=== PATIENT | female | born 1965 | race Caucasian/White ===

== ENCOUNTER 2023-05-01 12:30 | Outpatient (RCR) | payer MEDICARE, MEDICAID, SELFPAY ==
--- NOTE | 2023-04-01 13:52 | HP.PTEVAL_ITS ---
Patient's Visit Information Visit Information Visit Information: JUANA KAUR is a 57 year old F referred to Physical Therapy by Dr. Yann Hawley DO with a diagnosis of POSTLAMINECTOMY SYNDROME ,SPONDYLOSIS WITHOUT MYELOPATHY OR RADICULOPATHY. Date of Evaluation: 04/01/23 Physical Therapist: Galindo Spears, PT, Cert MDT, OCS Visit Plan Frequency: 2x /Week Duration: 4 Weeks Plan: PT INTERVETIONS AQUATIC THERAPY FOR LUMBAR ROM ,DLS ,BLE FLEXABILITY/STRENGTHENING AND POSTURAL EX'S Subjective Subjective: This 57 y/o female presents to physical therapy with low back pain. Patient had lumbar surgery 2019 laminectomy and 2019 had revision of lumbar with fusion surgery. Patient had cervical fusion as well. Patient seen Dr Hawley from family DR and wanted try PT before MRI. Patient had x-rays DDD . Dr Hawley wants to try 4weeks. Patient has thoracic and lumbar pain with paresthesia in feet from neuropathy per patient. Aggrieving factors extended walks ,or stand 15 min bending and lifting. Alleviating factors gabapentin for paresthesia in feet and rest. Patient tried pain management which did not help. Coughing/sneezing-. Bowel/bladder-. Pain affects sleeping. No abnormal night pain. Preauction : ALEGIC LATEX . Patient contributing factors contribute to condition. Patient is trying t loss weight but A 1C increased . Patient pain affects QOL and function . Patient goals to decrease pain. SOCIAL: SINGLE VOCATION: disability Pain Bilateral Back: Pain Intensity (Out of 10): 9 Pain Intensity Range: N/A Objective Objective: POSTURE: mild forward posture knee valgus ,pes planus GAIT: mild forward posture slow minna antalgic gait each side NEURO: c/o paresthesia/tingling in feet SYMMTRIES: align LUMBAR ROM: flexion mod loss ,extension severe loss ,side glides mod loss pain MMT: quads/hams 4-/5 ,hip flexion 3+/5 ,hip abduction 3+/5 ,ankle 4/5 Special Tests L/S Slump test left side: Positive L/S Slump test right side: Positive L/S Left Straight Leg Raise: Positive L/S Right Straight Leg Raise: Positive Lumbar Standing: Flexion - Symptoms During Testing: Increases Lumbar Standing: Flexion - Symptoms After Testing: No effect Lumbar Standing: Extension - Mechanical Response: No effect Lumbar Standing: Extension - Symptoms During Testing: Increases Lumbar Standing: Extension - Symptoms After Testing: No effect Lumbar Standing: Right Side Glides - Mechanical Response: No effect Lumbar Standing: Right Side [place] - Symptoms During Testing: No effect Lumbar Standing: Right Side [place] - Symptoms After Testing: No effect Lumbar Standing: Left Side [place] - Mechanical Response: No effect Lumbar Standing: Left Side [place] - Symptoms During Testing: No effect Lumbar Standing: Left Side [place] - Symptoms After Testing: No effect Balance/Special Test Scores Oswestry Low Back Score: 35 Goals Goal 1:: I with Aquatic therapy program Goal Time Frame: 4-6 Weeks Goal 2:: Patient to improve lumbar ROM for function of recovery to put on shoes Goal Time Frame: 4-6 Weeks Goal 3:: Patient to demonstrate 40% improvement with less pain and improved function. Goal Time Frame: 4-6 Weeks Goal 4:: Patient to improve back oswestry by 5 points to improve function/QOL Goal Time Frame: 4-6 Weeks Goal 5:: Patient improve strength by 4/5 to improve gait with less antalgic gait. Goal Time Frame: 4-6 Weeks Rehabilitation Potential Physical Therapy Diagnosis: This patient has mutiple comorbities to influences condition along with increase pain lumbar ,poor lumbar with pain ,weakness in legs ,pain with positioning and motion testing thus will benefit from skilled PT Rehabilitation Potential: Fair Anticipated Interventions Patient/Client Instruction: Educate patient on: Condition and Plan of Care For the Purpose of:: To decrease pain, To increase ROM, To improve muscle performance and motor function, To improve ability to perform ADL's, To increase tolerance to activity/condition/position, To improve ability of physical actions for home/community/work/leisure, To improve health of tissue, To decrease soft tissue restriction, To increase flexibility/ROM, To improve endurance and To improve balance Therapeutic Exercise to Include: Strength training, Endurance training, Body mechanics, Postural training, Flexibilty training, In an aquatic setting and Dynamic Lumbar Stabilization For the Purpose of:: To decrease pain, To increase ROM, To improve muscle performance and motor function, To improve ability to perform ADL's, To increase tolerance to activity/condition/position, To improve ability of physical actions for home/community/work/leisure, To improve gait and locomotor functions, To decrease soft tissue restriction and To increase flexibility/ROM Text: Thank you for the opportunity to evaluate your patient. For Medicare and Medicare HMO plans, please review the plan of care and approve it. It will need to be FAXED BACK to us at [phone] for Medicare purposes. For Medicare only, by signing this I certify the plan of care. Please let me know if there are questions or concerns regarding this plan of care. Physician Signature: Date:
--- NOTE | 2023-05-01 12:45 | HP.PTDCSUM ---
Discharge Summary D/C summary: It has been my pleasure to treat JUANA KAUR referred by Dr. Yann Hawley DO, with the diagnosis of POSTLAMINECTOMY SYNDROME ,SPONDYLOSIS WITHOUT MYELOPATHY OR RADICULOPATHY for a total of 8 visit(s). Discharge Date: 05/01/23 Please see the following information for a summary of their discharge status. Subjective Subjective: Pain is about same .RTD to try for MRI Pain Bilateral Back: Pain Intensity (Out of 10): 8 Overall Improvement % Improvement: 10 Objective Objective/Function: Objective: POSTURE: mild forward posture knee valgus ,pes planus GAIT: mild forward posture slow minna antalgic gait each side NEURO: c/o paresthesia/tingling in feet SYMMTRIES: align LUMBAR ROM: flexion mod loss ,extension severe loss ,side glides mod loss pain MMT: quads/hams 4-/5 ,hip flexion 4-/5 ,hip abduction 3+/5 ,ankle 4/5 Goals Goal 1:: I with Aquatic therapy program Goal Progress: Goal Met Goal 2:: Patient to improve lumbar ROM for function of recovery to put on shoes Goal Progress: Progressing Goal 3:: Patient to demonstrate 40% improvement with less pain and improved function. Goal Progress: Progressing Goal 4:: Patient to improve back oswestry by 5 points to improve function/QOL Goal Progress: Progressing Goal 5:: Patient improve strength by 4/5 to improve gait with less antalgic gait. Goal Progress: Progressing Plan Plan: RTD FOR POSSIBLE D/C Information d/c sentence: If there are questions or concerns regarding this patient's physical therapy, please feel free to call me at [phone]. Thank you for the referral of this patient. Sincerely, Galindo Spears, PT, Cert MDT, OCS Balance/Gait/Functional tests Balance/Special Test Scores Oswestry Low Back Score: 35
== END 2023-05-01 15:21 | disposition home or self-care (01) ==
LOC: PT 12:30
PROVIDERS: Visit Provider Orthopaedic Surgery
DX: M96.1 Postlaminectomy syndrome, not elsewhere classified (principal); M47.814 Spondylosis without myelopathy or radiculopathy, thoracic region
CPT/HCPCS: 97113; 97162; 97530

== ENCOUNTER → 2023-06-25 | Outpatient (CLI) | payer MEDICARE, MEDICAID, SELFPAY ==
--- NOTE | 2023-06-25 15:57 | MRI_ITS ---
INDICATION: pain, EXAMINATION: MRI - MR Spine Thoracic W/O Contrast TECHNIQUE: Multiplanar and multisequence MR images of the thoracic spine. IV Contrast Dosage and Agent: None. COMPARISON: None. FINDINGS: VERTEBRAE: No fracture. No acute compression deformity. Mild chronic anterior height loss in the midthoracic spine with slightly exaggerated kyphosis. No listhesis. Mild diffuse chronic endplate degenerative change.. No aggressive osseous lesion. Small intraosseous hemangioma at T1. Intraosseous hemangioma versus acute degenerative change at right inferior T2 endplate.. DISCS: Lower cervical posterior disc protrusions with mild spinal canal narrowing. T1-T2: Small broad-based posterior disc protrusion with mild spinal canal stenosis without significant neural foraminal narrowing. T2-T3: Small posterior central disc protrusion with mild spinal canal stenosis without significant neural foraminal narrowing. T4-T5: Slight broad-based posterior disc protrusion with mild spinal canal stenosis without significant neural foraminal narrowing. T6-T7: Small left central posterior disc protrusion with mild spinal canal stenosis, slightly effacing anterior cord without compression. No significant neural foraminal narrowing. T7-T8: Small right central to subarticular posterior disc protrusion with mild spinal canal stenosis, effacing the right anterior cord without compression. T8-T9: Small posterior central disc protrusion with minimal spinal canal narrowing, slightly effacing the anterior left cord without compression. No significant neural foraminal stenosis. CORD: Unremarkable in signal and morphology. No expansile mass. No abnormal epidural fluid collection. SOFT TISSUES: Unremarkable. MRI/Spine Thoracic (Routine) IMPRESSION: Small multilevel posterior disc protrusions slightly effacing the left anterior cord at T6-T7, right anterior cord at T7-T8, and left anterior cord at T8-T9 without cord compression Mild diffuse chronic endplate degenerative changes. . No acute osseous finding. Electronically Signed: Grayson Degroot MD at 5:26 EDT ,
--- NOTE | 2023-06-25 15:57 | MRI_ITS ---
INDICATION: pain, HX PREV SURGERY X 2 EXAMINATION: MRI - MR Spine Lumbar W/O Contrast TECHNIQUE: Multiplanar and multisequence MR images of the lumbar spine. IV Contrast Dosage and Agent: None. COMPARISON: Lumbar spine radiograph March 20, 2023. FINDINGS: VERTEBRAE: Normal bone marrow signal. No fracture or compression deformity. No aggressive osseous lesion. Preserved lumbar lordosis with mild degenerative grade 1 retrolisthesis L2 on L3. . Prior L4-L5 laminectomy with bilateral transpedicular Internal fixation of hardware failure CORD: Conus medullaris at L1. Imaged portion of the cord is normal signal. Cauda equina layer dependently.. L1/L2: Normal disc height and morphology. Normal spinal canal, lateral recesses and neuroforamina. L2/L3: Disc height loss with small broad-based posterior disc protrusion and mild ligamentum flavum hypertrophy causing mild spinal canal stenosis, moderate bilateral recess narrowing with disc osteophyte in the L3 nerve rootlets, and mild bilateral neural foraminal stenosis.. L3/L4: Small broad-based posterior disc bulge with moderate bilateral ligamentum flavum hypertrophy and facet arthropathy together causing mild spinal canal stenosis, mild lateral recess narrowing, and mild bilateral foraminal stenosis.. L4/L5: No gross disc herniation. Normal spinal canal, lateral recesses and neuroforamina. L5/S1: Normal disc height and morphology. Normal spinal canal, lateral recesses and neuroforamina. SOFT TISSUES: Unremarkable. MRI/Spine Lumbar (Routine) IMPRESSION: Prior laminectomy and posterior transpedicular fixation L4-L5. Small posterior disc herniation L2-3 and L3-4 with ligamentum flavum and facet hypertrophy causing mild spinal canal stenosis at both levels and moderate bilateral lateral recess narrowing at L2-3 with disc likely abutting L3 nerve rootlets. Mild multilevel neural foraminal stenosis. Electronically Signed: Grayson Degroot MD at 6:32 EDT ,
== END | disposition home or self-care (01) ==
LOC: MRI 15:53
PROVIDERS: Referring Provider Orthopaedic Surgery; Visit Provider Orthopaedic Surgery
DX: M51.36 Other intervertebral disc degeneration, lumbar region (principal); Z98.1 Arthrodesis status
CPT/HCPCS: 72146; 72148

== ENCOUNTER 2023-07-28 19:50 | Emergency (ER) | payer MEDICARE, MEDICAID, SELFPAY ==
[2023-07-28 19:50] VITALS: BP 150/97; PULSE 77; RESP 15; TEMP 36.8; O2SAT 97; BMI 36.7
[2023-07-28 19:54] VITALS: BP 150/97; PULSE 77; RESP 15; TEMP 36.8; O2SAT 97
--- NOTE | 2023-07-28 20:56 | EX.ED.GENINJ ---
HPI <MAGED Molina - Last Filed: 07/28/23 21:14> History of Present Illness Chief Complaint: Bite Narrative Narrative: Patient's cat bit her on the right palm 2 days ago because it did not like being bathed in the bathtub. She has 2 small puncture wounds and yesterday became red. No fever or chills. No difficulty moving the extremity, no weakness or paresthesias. She is a type II diabetic on oral and insulin regimens. [facility] <MAGED Molina - Last Filed: 07/28/23 21:14> [facility] Medical History (Updated 07/28/23 @ 20:32 by MAGED Molina) Arthritis Degenerative disk disease Diabetes Fibromyalgia Hypercholesteremia Sleep apnea Home Medications albuterol sulfate 90 mcg/actuation aerosol inhaler inhalation 03/20/23 [History Last Taken Unknown] aspirin 81 mg tablet,delayed release (Adult Low Dose Aspirin) 81 mg PO DAILY 03/20/23 [History Last Taken Unknown] atorvastatin 40 mg tablet mg PO 03/20/23 [History Last Taken Unknown] gabapentin 600 mg tablet mg PO 03/20/23 [History Last Taken Unknown] lisinopril 20 mg tablet mg PO 03/20/23 [History Last Taken Unknown] metoprolol tartrate 25 mg tablet mg PO 03/20/23 [History Last Taken Unknown] multivitamin (Daily Multi-Vitamin tablet) 1 tab PO DAILY 03/20/23 [History Last Taken Unknown] pantoprazole 40 mg tablet,delayed release mg PO 03/20/23 [History Last Taken Unknown] semaglutide 0.25 mg or 0.5 mg (2 mg/3 mL) subcutaneous pen injector (Ozempic) mg subcut 03/20/23 [History Last Taken Unknown] dapagliflozin propanediol 10 mg tablet (Farxiga) mg PO 06/03/23 [History Last Taken Unknown] insulin glargine 100 unit/mL (3 mL) subcutaneous pen (Lantus Solostar U-100 Insulin) 50 unit subcut QHS 07/15/23 [History Last Taken Unknown] insulin lispro 100 unit/mL subcutaneous pen 30 unit subcut QAC 07/15/23 [History Last Taken Unknown] amoxicillin 875 mg-potassium clavulanate 125 mg tablet 1 tab PO BID 7 days #14 tabs 07/28/23 [Rx Last Taken Unknown] Allergy/AdvReac Type Severity Reaction Status Date / Time Latex, Natural Rubber Allergy Intermediate Rash Verified 07/28/23 19:57 lavender (Lavandula Allergy Mild Hives Verified 07/28/23 19:57 angustifolia) metformin Allergy Mild rash Verified 07/28/23 19:57 Surgical History History of back surgery History of fusion of cervical spine History of lumbar fusion Social History Smoking Status: Never smoker alcohol intake: never substance use type: does not use ROS <MAGED Molina - Last Filed: 07/28/23 21:14> ROS ED ROS Narrative Constitutional: Negative for fever, chills, malaise. GI: Negative for nausea, vomiting. Neuro: Negative for motor/sensory dysfunction. Skin: Positive for wound. EXAM <MAGED Molina - Last Filed: 07/28/23 21:14> Physical Exam Narrative Exam Narrative: CONST: Patient sitting in no acute distress. EYES: Normal inspection. NECK: Normal inspection. RESP: No respiratory distress, CTAB. CVS: Regular rate and rhythm, no murmur, no gallop. SKIN: 2 puncture wounds with scab right palm on hypothenar eminence with surrounding cellulitis. The cellulitis does not go past the wrist joint. The more medial puncture wound has slight yellow pus visible under the skin. No crepitus or lymphangitis. Full ROM of wrist and hand, normal motor and sensory function median radial ulnar distributions, 2+ radial pulse and brisk cap refill. NEURO: Oriented x4. PSYCH: Normal affect. Const Vital Signs: 07/28/23 19:50 07/28/23 19:54 Temperature 98.2 F 98.2 F Temperature Source Temporal Oral Pulse Rate 77 77 Respiratory Rate 15 15 Blood Pressure 150/97 H 150/97 H Blood Pressure Mean 114 114 Pulse Ox 97 97 Oxygen Delivery Method Room Air Room Air <Dr. Musa Szymanski MD - Last Filed: 07/28/23 21:47> Physical Exam Const Vital Signs: 07/28/23 19:50 07/28/23 19:54 Temperature 98.2 F 98.2 F Temperature Source Temporal Oral Pulse Rate 77 77 Respiratory Rate 15 15 Blood Pressure 150/97 H 150/97 H Blood Pressure Mean 114 114 Pulse Ox 97 97 Oxygen Delivery Method Room Air Room Air PROC <Dr. Musa Szymanski MD - Last Filed: 07/28/23 21:47> Procedures Other Procedures Procedure(s): The 2 cat bite sites were anesthetized with 1% lidocaine by local filtration. Using a 10 blade 1 cm laceration was made over each bite site. Blunt dissection was undertaken with purulent material noted. Approximately 1/2 to 1 cc of. Material each cavity. MDM <MAGED Molina - Last Filed: 07/28/23 21:14> [facility] Narrative Medical decision making narrative: History gathered from: Patient and daughter Patient has infected cat bite on her right palm. I remove the scabs with an 18-gauge needle and there is purulent material. It was anesthetized with 1% lidocaine and opened with a 10 blade approximately 1 cm laceration over each puncture site. Purulent material was expressed, larger wound was irrigated and packed. She was given Augmentin and tetanus and discharged with instructions to be rechecked within 2 days or return if worsening symptoms. I have personally performed a face to face assessment of the patient and have reviewed the PANCHO Note. I performed a substantive portion of the visit including all aspects of the following. My tran findings include: History is remarkable for cat bite thenar eminence right hand. There are 2 puncture wounds noted. There is tenderness. The physician emergency veterinary assistant did express purulent material. Patient denies history of rheumatic fever, mitral valve prolapse, valvular heart disease, SBE and she is not immune suppressed. Patient denies allergy to penicillin. Patient is diabetic. The cat is a family pet and shots are up-to-date. Exam is remarkable for tenderness and infection due to cat bite thenar eminence. There is no lymphangitis. There is no epitrochlear lymphadenopathy. There is no surrounding cellulitis. Medical Decision Making the areas were anesthetized. Using a 10 blade approximately 1 cm laceration was made over each puncture site. There was small cavity of purulent material that was found. Wound was irrigated. Patient will receive first dose of Augmentin in the emergency department. She will be discharged to home with prescription. She was instructed to contact her doctor for wound check in 2 days. She was told if she has a red streak going towards her elbow fever greater than 100 or shaking chills she should come back to the emergency department. Other additions or changes: [None] <Dr. Musa Szymanski MD - Last Filed: 07/28/23 21:47> [facility] Narrative Medical decision making narrative: I have personally performed a face to face assessment of the patient and have reviewed the PANCHO Note. I performed a substantive portion of the visit including all aspects of the following. My tran findings include: History is remarkable for cat bite thenar eminence right hand. There are 2 puncture wounds noted. There is tenderness. The physician emergency veterinary assistant did express purulent material. Patient denies history of rheumatic fever, mitral valve prolapse, valvular heart disease, SBE and she is not immune suppressed. Patient denies allergy to penicillin. Patient is diabetic. The cat is a family pet and shots are up-to-date. Exam is remarkable for tenderness and infection due to cat bite thenar eminence. There is no lymphangitis. There is no epitrochlear lymphadenopathy. There is no surrounding cellulitis. Medical Decision Making the areas were anesthetized. Using a 10 blade approximately 1 cm laceration was made over each puncture site. There was small cavity of purulent material that was found. Wound was irrigated. Patient will receive first dose of Augmentin in the emergency department. She will be discharged to home with prescription. She was instructed to contact her doctor for wound check in 2 days. She was told if she has a red streak going towards her elbow fever greater than 100 or shaking chills she should come back to the emergency department. Other additions or changes: [None] Discharge Plan Triage Chief Complaint: Bite ED Midlevel Provider: Matilda Nassar ED Provider: Musa Szymanski Dx/Rx/DC Orders Clinical Impression: Cat bite of right hand with infection, Abscess of hand, right Instructions: Animal Bites and Scratches, ED Abscess Incision And Drainage Prescriptions: New amoxicillin-pot clavulanate 875-125 mg tablet 1 tab PO BID 7 Days Qty: 14 0RF No Action Ozempic 0.25 mg or 0.5 mg (2 mg/3 mL) pen injector subcut metoprolol tartrate 25 mg tablet PO pantoprazole 40 mg tablet,delayed release (DR/EC) PO gabapentin 600 mg tablet PO lisinopril 20 mg tablet PO Patient Comments: TAKE 1 TABLET BY MOUTH ONCE DAILY atorvastatin 40 mg tablet PO Patient Comments: TAKE 1 TABLET BY MOUTH ONCE DAILY albuterol sulfate 90 mcg/actuation HFA aerosol inhaler inhalation Patient Comments: INHALE 2 PUFFS BY MOUTH EVERY 4 HOURS NEEDED FOR WHEEZING AND FOR SHORTNESS OF BREATH multivitamin [Daily Multi-Vitamin] Tablet 1 tab PO DAILY aspirin [Adult Low Dose Aspirin] 81 mg tablet,delayed release (DR/EC) 81 mg PO DAILY insulin lispro 100 unit/mL insulin pen 30 unit subcut QAC insulin glargine [Lantus Solostar U-100 Insulin] 100 unit/mL (3 mL) insulin pen 50 unit subcut QHS Patient Comments: INJECT 60 UNITS SUBCUTANEOUSLY ONCE DAILY AT BEDTIME Farxiga 10 mg tablet PO Primary Care Provider: Arianna Alonzo NP Referrals: Arianna Alonzo DIRECTOR DIGITAL STRATEGY, DIRECTOR DIGITAL STRATEGY-C [Primary Care Provider] - Activity Restrictions/Additional Instructions: Watch the area very carefully and if the redness spreads, worsens, you have a fever or increased pain or swelling come back to the ER Disposition Disposition: Home, Self Care
[2023-07-28] MEDS: Amox/Clavulanate 875 MG Tablet PO (22:08)
[2023-07-28] MEDS: Ondansetron ODT 4 MG Tablet PO (22:08)
[2023-07-28] MEDS: Diphth,Pertuss(Acell),Tet Vac 0.5 ML Vial IM (22:08)
[2023-07-28] MEDS: HYDROcodone Bitartrate/Apap 5/325 Tablet PO (22:09)
[2023-07-28 22:17] VITALS: BP 145/67; PULSE 73; RESP 16; O2SAT 98
== END 2023-07-28 22:18 | disposition home or self-care (01) ==
PROVIDERS: Emergency Provider Emergency Medicine; PCP Nurse Practitioner Family; Visit Provider Emergency Medicine
DX: L02.511 Cutaneous abscess of right hand (principal); E11.9 Type 2 diabetes mellitus without complications; S61.451A Open bite of right hand, initial encounter; E78.00 Pure hypercholesterolemia, unspecified; Z79.01 Long term (current) use of anticoagulants; Z79.84 Long term (current) use of oral hypoglycemic drugs; Z23 Encounter for immunization; W55.01XA Bitten by cat, initial encounter
CPT/HCPCS: 10061; 10060; 90471; 90715; 99284

== ENCOUNTER 2025-04-07 03:19 | Emergency (ER) | payer MEDICARE, MEDICAID, SELFPAY ==
[2025-04-07 03:22] VITALS: BP 207/94; PULSE 85; RESP 18; TEMP 37.1; O2SAT 96; BMI 37.3
[2025-04-07 03:25] VITALS: BP 202/79; PULSE 84; RESP 18; TEMP 37.1; O2SAT 100
[2025-04-07 03:41] LABS: Hematocrit 39.1 % (37-47); Hemoglobin 13.0 g/dL (12.0-15.0); Immature Granulocytes Count 0.060 X10^3/uL (0.0-0.0); Mean Corp Hgb Conc 33.2 g/dL (32-36); Mean Corpuscular Volume 85.7 fL (81-99); Mean Platelet Vol. 10.1 fl (6.2-12.0); NRBC Flagged by Analyzer 0 % (0-5); Platelet Count 310 K/mm3 (150-450); RBC Distribution Width CV 12.8 % (11.6-14.6); RBC Distribution Width SD 39.8 fl (35.1-43.9); Red Blood Count 4.56 M/mm3 (4.2-5.4); White Blood Count 13.3 K/mm3 (4.4-11.0)
[2025-04-07] MEDS: 0.9% Normal Saline (1000mL) 1,000 ML 999 ML IV (03:42)
--- OUTSIDE RECORDS SUMMARY | 2025-04-07 03:53 | XMS RPT_ITS | CCD ---
Author Organization [facility] Care Team Providers Care Manager Delivery Name Role Phone Scott Espinosa Unavailable Unavailable Scott Espinosa Unavailable Unavailable Unavailable Unavailable Unavailable Scott Espinosa Unavailable [phone] Scott Espinosa Unavailable [phone] SCOTT ESPINOSA Unavailable Unavailable SCOTT ESPINOSA Unavailable Unavailable SCHOETTSPENCER BASHIR T Unavailable Unavailable SCHOETTKRYSTEN SPENCER T Unavailable Unavailable UNKNOWN, PROVIDER Unavailable Unavailable SCOTT ESPINOSA Unavailable Unavailable Meka Price Unavailable Marianela Fowler Unavailable Kristie Vera Unavailable Unavailable Davey Arreola Unavailable Unavailable RevDavey weiss Unavailable Unavailable Viau, Linh R Unavailable Unavailable Viau, Linh R Unavailable Unavailable Maribeth, Jasper J Unavailable Unavailable Maribeth, Jasper J Unavailable Unavailable Maribeth, Jasper J Unavailable Unavailable Maribeth, Jasper J Unavailable Unavailable Fanello Kary K Unavailable Unavailable Fanello Kary K Unavailable Unavailable Reece, Naomi A Unavailable Unavailable Reece, Naomi A Unavailable Unavailable Scott Espinosa Unavailable Unavailable Scott Espinosa Unavailable Unavailable Scott Espinosa Unavailable Unavailable Scott Espinosa Unavailable Unavailable Fowler, Marianela Unavailable Unavailable Fowler, Marianela Unavailable Unavailable Viau, Linh R Unavailable Unavailable Viau, Linh R Unavailable Unavailable Scott Espinosa Unavailable Unavailable Scott Espinosa Unavailable Unavailable DimitrisDewayne fatimaa E Unavailable Unavailable DimitrisDewayne fatimaa E Unavailable Unavailable Fanello, Kary K Unavailable Unavailable Fanello, Kary K Unavailable Unavailable Reece, Naomi A Unavailable Unavailable Reece, Naomi A Unavailable Unavailable Viau, Linh R Unavailable Unavailable Viau, Linh R Unavailable Unavailable Viau, Linh R Unavailable Unavailable Viau, Linh R Unavailable Unavailable Macie, Ziad Unavailable Unavailable Macie, Ziad Unavailable Unavailable Natalie Payne Unavailable Unavailable Natalie Payne Unavailable Unavailable Maribeth, Jasper J Unavailable Unavailable Maribeth, Jasper J Unavailable Unavailable Maribeth, Jasper J Unavailable Unavailable Maribeth, Jasper J Unavailable Unavailable Viau, Linh R Unavailable Unavailable Viau, Linh R Unavailable Unavailable Dimitris, Nancy E Unavailable Unavailable Dimitris, Nancy E Unavailable Unavailable Viau, Linh R Unavailable Unavailable Viau, Linh R Unavailable Unavailable Dimitris, Nancy E Unavailable Unavailable Dimitris, Nancy E Unavailable Unavailable Viau, Linh R Unavailable Unavailable Viau, Linh R Unavailable Unavailable Viau, Linh R Unavailable Unavailable Viau, Linh R Unavailable Unavailable Viau, Linh R Unavailable Unavailable Viau, Linh R Unavailable Unavailable Anil Marianela Alma Primary Care Provider [phone] Kristie Vera M Unavailable Unavailable Unavailable Primary Care Provider UnavailScott Higuera Primary Care Provider Marianela Fowler Primary Care Provider [phone] Chuy Kristie M Unavailable Unavailable Chuy, Kristie M Unavailable Unavailable Guerrero, Svetlana Unavailable Unavailable Jin, Patricia Unavailable Unavailable [place], Patricia Unavailable Unavailable MIGEL BROWNING Admitting Unavailable MIGEL BROWNING Referring Unavailable FOWLER, MARIANELA ALMA Primary Care Unavailable MIGEL BROWNING Admitting Unavailable MIGEL BROWNING Referring Unavailable FOWLER, MARIANELA ALMA Primary Care Unavailable Klironomos, Dionysios Unavailable FOWLER, MARIANELA ALMA Attending Unavailable FOWLER, MARIANELA ALMA Referring Unavailable FOWLER, MARIANELA ALMA Primary Care Unavailable FOWLER, MARIANELA ALMA Primary Care Unavailable BANDAR ROCK Attending Unavailable FOWLER, MARIANELA ALMA Primary Care Unavailable KLIRONOMOS, DIONYSIOS Referring Unavailabl e Fowler, Marianela Alma Primary Care Provider [phone] Klironomos, Dionysios Unavailable Chuy, Kristie M Unavailable Unavailable Chuy, Kristie M Unavailable Unavailable Fowler CORPORATE CONSULTANT, Marianela Alma Primary Care Provider Aileen ELIZABETH, Yarelios Unavailable MIGEL BROWNING Attending Unavailable FOWLER, MARIANELA ALMA Primary Care Unavailable GARIMA COMBS Attending Unavailable FOWLER, MARIANELA ALMA Primary Care Unavailable MIGEL BROWNING Attending Unavailable FOWLER, MARIANELA ALMA Primary Care Unavailable FOWLER, MARIANELA ALMA Attending Unavailable FOWLER, MARIANELA ALMA Primary Care Unavailable IMGEL BROWNING Attending Unavailable FOWLER, MARIANELA ALMA Primary Care Unavailable BABAK CANO Attending Unavailab le FOWLER, MARIANELA ALMA Primary Care Unavailable FOWLER, MARIANELA ALMA Admitting Unavailable FRANCISCO STOKES Attending Unavaila ble FOWLER, MARIANELA ALMA Referring Unavailable FOWLER, MARIANELA ALMA Primary Care Unavailable FOWLER, MARIANELA ALMA Attending Unavailable FOWLER, MARIANELA ALMA Primary Care Unavailable MIGEL BROWNING Attending Unavailable FOWLER, MARIANELA ALMA Primary Care Unavailable MEKA CHURCHILL Referring Unavailabl e FOWLER, AMRIANELA ALMA Primary Care Unavailable MEKA CHURCHILL Admitting Unavailabl e ERENDIRA KINNEY Attending Unavailable FARHAD PALMER Attending Unavaila ble FOWLER, MARIANELA ALMA Primary Care Unavailable NAOMI REECE Attending Unavailable FOWLER, MARIANELA ALMA Primary Care Unavailable ROSITA BONILLA Attending Unavailable FOWLER, MARIANELA ALMA Primary Care Unavailable MIGEL BROWNING Attending Unavailable FOWLER, MARIANELA ALMA Primary Care Unavailable JR MAHMOOD Admitting Unavailab JR Wilson Referring Unavailab le FOWLER, MARIANELA ALMA Primary Care Unavailable ALEC TOPETE Attending Unavailable FOWLER, MARIANELA ALMA Attending Unavailable FOWLER, MARIANELA ALMA Primary Care Unavailable FOWLER, MARIANELA ALMA Attending Unavailable FOWLER, MARIANELA ALMA Primary Care Unavailable Aileen ELIZABETH, Yarelios Unavailable Fowler CORPORATE CONSULTANT, Marianela Alma Primary Care Provider LATVIAN, BRIAN WHITT Attending Unavailable LATVIAN, BRIAN WHITT Admitting Unavailable FOWLER, MARIANELA ALMA Primary Care Unavailable FOWLER, MARIANELA ALMA Primary Care Unavailable MIGEL BROWNING Referring Unavailable MIGEL BROWNING Attending Unavailable FOWLER, MARIANELA ALMA Primary Care Unavailable NAOMI REECE Admitting Unavailable FOWLER, MARIANELA ALMA Primary Care Unavailable BABAK CANO Admitting Unavailab le FOWLER, MARIANELA ALMA Primary Care Unavailable NAOMI REECE Admitting Unavailable FOWLER, MARIANELA ALMA Primary Care Unavailable GAYLE MARAVILLA Attending Unavailabl e GAYLE MARAVILLA Admitting Unavailabl e Unavailable Primary Care Provider Unavailabl e Queden LOCOMOTIVE ENGINEER.CORPORATE CONSULTANT, Arianna A Unavailable Queden LOCOMOTIVE ENGINEER.CORPORATE CONSULTANT, Arianna A Primary Care Provider Queden LOCOMOTIVE ENGINEER.CORPORATE CONSULTANT, Arianna A Unavailable [phone] Queden LOCOMOTIVE ENGINEER.CORPORATE CONSULTANT, Arianna A Primary Care Provider Queden LOCOMOTIVE ENGINEER.CORPORATE CONSULTANT, Arianna A Unavailable Queden LOCOMOTIVE ENGINEER.CORPORATE CONSULTANT, Arianna A Primary Care Provider Queden LOCOMOTIVE ENGINEER.CORPORATE CONSULTANT, Arianna A Unavailable [phone] Queden LOCOMOTIVE ENGINEER.[facility], Arianna A Primary Care Provider Scott Espinosa CNP Unavailable Scott Espinosa CNP Primary Care Provider [phone] Meka Price DO [facility] Provi gutierrez Anil WHALEY Marianela Alma Primary Care Provider [phone] Kristie Vera RN Unavailable Unavailable Chuy LUNA, Kristie Norwood Unavailable Unavailable Svetlana Guerrero Unavailable Unavailable [place] RD, Patricia Unavailable Unavailab le Jin RD, Patricia Unavailable Unavailab carline Gallagher MD, Jose Unavailable Anil WHALEY, Marianela Alma Primary Care Provider [phone] Queden LOCOMOTIVE ENGINEER.CORPORATE CONSULTANT, Arianna A Primary Care Provider Tracey Blakely RN Unavailable Unavailable DAMARIS SPICER Referring Unavaila ble QUEDEN, ARIANNA A Primary Care Unavailable CASH HURT Admitting Unavailabl LOUIE Browne JR Attending Unavaila ble LAVELLE MERCADO Unavailable Shelby Leslie Attending Unavailable Queden QUALITY TECHNICIAN, Arianna Primary Care Unavailable Queden QUALITY TECHNICIAN, Arianna Referring Unavailable AnujShelby Attending Unavailable Queden QUALITY TECHNICIAN, Arianna Referring Unavailable Queden QUALITY TECHNICIAN, Arianna Primary Care Unavailable Chandan, Yann Attending Unavailable Hawley, Yann Attending Unavailable Hawley, Yann Attending Unavailable Hawley, Yann Referring Unavailable NEISLEN, GAYLE Primary Care Unavailable Queden QUALITY TECHNICIAN, Arianna Primary Care Unavailable Musa Szymanski Attending Unavailable Shelby Leslie Attending Unavailable NEISLEN, GAYLE Primary Care Unavailable NEISLEN, GAYLE Referring Unavailable Aileen ELIZABETH, Jose Unavailable [phone] Marianela Fowler CNP Primary Care Provider [phone] QUEDEN, ARIANNA A Primary Care Unavailable DUKE MIKE Attending Unava ilable QUEDEN, ARIANNA A Primary Care Unavailable QUEDEN, ARIANNA A Referring Unavailable QUEDEN, ARIANNA A Attending Unavailable QUEDEN, ARIANNA A Primary Care Unavailable QUEDEN, ARIANNA A Referring Unavailable QUEDEN, ARIANNA A Attending Unavailable QUEDEN, ARIANNA A Referring Unavailable QUEDEN, ARIANNA A Primary Care Unavailable IRMA VALERA Attending Unavaila ble QUEDEN, ARIANNA A Primary Care Unavailable Allergies Allergy Classification Reported Allergen(s) Allergy Type Date of Onset Reaction(s) Facility Latex (5 sources) Latex Substance Allergy [address] [facility] (20 sources) Latex; Translations: [LATEX] Propensity to adverse reactions to drug [address] [facility] Work Phone: (20 sources) metFORMIN; Translations: [METFORMIN] Drug Allergy 2 GI Upset [facility] (20 sources) Lavender (Lavandula Angustifolia); Translations: [LAVENDER (LAVANDULA ANGUSTIFOLIA)] Drug Allergy 2 Rash [facility] (1 source) metFORMIN Drug Allergy 4 [facility] (1 source) natural latex rubber Drug allergy (disorder) 4 [facility] (1 source) lavender (Lavandula angustifolia) Drug allergy (disorder) [facility] Medications Current Medications Medication Drug Class(es) Dates Sig (Normalized) Sig (Original) Accu-Chek Guide Me Glucose Mtr Misc (14 sources) Start: 11-06-2020 Accu-Chek Guide Me Glucose Mtr Misc Indications: Uncontrolled type 2 diabetes mellitus with hyperglycemia, with long-term current use of insulin (HCC) USE DIRECTED 1 each 11/06/2020 Active Start: 11-06-2020 Accu-Chek Guid e Me Glucose Mtr Misc Indications: Uncontrolled type 2 diabetes mellitus with hyperglycemia, with long-term current use of insulin (HCC) USE DIRECTED 1 each 0 11/06/2020 Active [id number] 200 actuat albuterol 0.09 mg/actuat metered dose inhaler (20 sources) beta2-Adrenergic Agonist Start: 03-10-2025 take 2 puff(s) by inhalation every four hours as needed for wheezing albuterol HFA (PROVENTIL HFA, VENTOLIN HFA) 90 mcg/actuation inhaler Inhale 2 puffs as instructed every 4 hours as needed. For Wheezing/Shortness of Breath 8.5 g 1 03/10/2025 Active Start: 09-19-2024 End: 03-07-2025 take 2 puff(s) by inhalation every four hours as needed for wheezing albuterol HFA (PROVENTIL HFA, VENTOLIN HFA) 90 mcg/actuation inhaler Inhale 2 puffs as instructed every 4 hours as needed. For Wheezing/Shortness of Breath 8.5 g 1 03/10/2025 Active Start: 10-08-2023 End: 09-19-2024 take 2 puff(s) by inhalation every four hours as needed for wheezing albuterol HFA (PROAIR HFA) 90 mcg/actuation inhaler Inhale 2 Puffs as instructed every 4 hours as needed for wheezing/shortness of breath. 1 Each 2 10/08/2023 09/19/2024 Discontinued Start: 07-21-2022 End: 10-05-2022 take 2 puff(s) by inhalation every four hours as needed for wheezing albuterol HFA (PROAIR HFA) 90 mcg/actuation inhaler Inhale 2 Puffs as instructed every 4 hours as needed for wheezing/shortness of breath. 1 Each 2 10/06/2022 Active Start: 11-11-2021 End: 07-19-2022 take 2 puff(s) by inhalation every four hours as needed for wheezing albuterol HFA (PROAIR HFA) 90 mcg/actuation inhaler Inhale 2 Puffs as instructed every 4 hours as needed for wheezing/shortness of breath. 1 Inhaler 1 04/21/2022 07/19/2022 Discontinued Start: 11-01-2020 take 2 puff(s) by in halation every six hours as needed for wheezing albuterol (Ventolin HFA) 90 mcg/actuation inhaler Inhale 2 (two) puffs every 6 (six) hours as needed for wheezing . 1 Inhaler 11/01/2020 Active Start: 11-01-2020 End: 12-01-2020 take 2 puff(s) by inhalation every six hours as needed for wheezing albuterol (Ventolin HFA) 90 mcg/actuation inhaler Inhale 2 (two) puffs every 6 (six) hours as needed for wheezing . 1 Inhaler 0 11/01/2020 Active Comment on above: Inhale 2 Puffs as in structed every 4 hours as needed for wheezing/shortness of breath. aspirin 81 mg chewable tablet (20 sources) Nonsteroidal Anti-inflammatory Drug Start: End: 6 take 1 tablet by mouth once daily aspirin 81 mg chewable tablet Take 1 tablet by mouth once daily. 90 tablet 3 03/10/2025 03/10/2026 Active End: 03-07-2025 aspirin 81 mg chewable table t Take 81 mg by mouth. 03/07/2025 Discontinued take 1 tablet by rach th once daily aspirin 81 MG EC tablet Take 81 mg by mouth daily. Active Comment on above: Take 81 mg by mouth. atorvastatin 40 mg oral tablet (20 sources) HMG-CoA Reductase Inhibitor Start: 5 take 1 tablet by mouth once atorvastatin (LIPITOR) 40 mg tablet Indications: Hyperlipidemia, mixed Take 1 tablet by mouth every afternoon. 90 tablet 1 03/10/2025 Active Start: 10-08-2023 End: 03-07-2025 take 1 tablet by mouth once atorvastatin (LIPITOR) 40 mg tablet Indications: Hyperlipidemia, mixed Take 1 tablet by mouth every afternoon. 90 tablet 1 01/23/2025 03/07/2025 Discontinued Start: 03-18-2022 End: 09-06-2023 take 1 tablet by mouth once daily atorvastatin (LIPITOR) 40 mg tablet Indications: Hyperlipidemia, mixed Take 1 tablet by mouth once daily. 90 tablet 1 06/08/2023 09/06/2023 Active Start: 12-12-2019 End: 02-26-2022 take 1 tablet by mouth once daily atorvastatin (LIPITOR) 40 mg tablet Indications: Hyperlipidemia, mixed Take 1 tablet by mouth once daily. 90 tablet 0 11/28/2021 Active Start: 07-09-2018 End: 11-04-2018 take 1 tablet by mouth at bedtime atorvastatin (LIPITOR) 40 MG tablet Indications: Hyperlipidemia, unspecified hyperlipidemia type Take 1 (one) tablet (40 mg total) by mouth at bedtime . 30 tablet 11 11/04/2018 Active Start: 03-26-2017 End: 02-24-2018 take 1 tablet by mouth at bedtime atorvastatin (LIPITOR) 40 MG tablet TAKE ONE (1) TABLET BY MOUTH AT BEDTIME 30 tablet 5 02/09/2018 02/24/2018 Discontinued (Reorder (Suppress CancelRx Message to Pharmacy)) Comment on above: Take 1 tablet by rach th once daily. Take 1 tablet by rach th once daily blood pressure monitor (Blood Pressure Kit) Kit (20 sources) Start: 02-27-2020 blood pressure monitor (Blood Pressure Kit) Kit Indications: Hypertension, unspecified type To monitor blood pressure twice daily . 1 each 02/27/2020 Active Start: 02-27-2020 blood pressure monitor (Blood Pressure Kit) Kit Indications: Hypertension, unspecified type To monitor blood pressure twice daily . 1 each 0 02/27/2020 Active Blood-Glucose Meter (4 sources) Start: 07-09-2018 blood-glucose meter [facility] Indications: Uncontrolled type 2 diabetes mellitus with hyperglycemia, with long-term current use of insulin ([facility]) Check blood glucose 4 times daily. 1 each 0 07/09/2018 Active Blood-Glucose Meter (ACCU-CH EK GUIDE ME GLUCOSE MTR) (20 sources) Start: 03-10-2025 Blood-Glucose Meter (ACCU-CHEK GUIDE ME GLUCOSE MTR) Indications: Type 2 diabetes mellitus with peripheral neuropathy (HCC) patient checks sugars 3 times daily Dx E11.42 1 each 03/10/2025 Active Start: 02-06-2022 End: 03-07-2025 Blood-Glucose Meter (ACCU-CH EK GUIDE ME GLUCOSE MTR) Indications: Type 2 diabetes mellitus with peripheral neuropathy (HCC) patient checks sugars 3 times daily Dx E11.42 1 Each 02/06/2022 03/07/2025 Discontinued Start: 02-06-2022 Blood-Glucose Meter (ACCU-CHEK GUIDE ME GLUCOSE MTR) Indications: Type 2 diabetes mellitus with peripheral neuropathy (HCC) patient checks sugars 3 times daily Dx E11.42 1 Each 02/06/2022 Active Start: 02-06-2022 Blood-Glucose Meter (ACCU-CHEK GUIDE ME GLUCOSE MTR) Indications: Type 2 diabetes mellitus with peripheral neuropathy (HCC) patient checks sugars 3 times daily Dx E11.42 1 Each 0 02/06/2022 Suspended Start: 02-06-2022 Blood-Glucose Meter (ACCU-CHEK GUIDE ME GLUCOSE MTR) Indications: Type 2 diabetes mellitus with peripheral neuropathy (HCC) patient checks sugars 3 times daily Dx E11.42 1 Each 0 02/06/2022 Active End: 02-06-2022 Blood-Glucose Meter (ACCU-CH EK GUIDE ME GLUCOSE MTR) patient checks sugars 3 times daily Dx E11.42 0 02/06/2022 Discontinued Comment on above: patient checks sugar s 3 times daily Dx E11.42 cephalexin 500 mg oral capsule (10 sources) Cephalosporin Antibacterial Start: 2 End: 2 take 1 capsule by mouth three times daily cephALEXin (KEFLEX) 500 mg capsule Take 1 capsule by mouth three times daily for 7 days. 21 capsule 0 05/26/2022 06/02/2022 Active Start: 11-01-2020 End: 11-08-2020 take 1 capsule by mouth twice daily cephALEXin (KEFLEX) 500 MG capsule Take 1 (one) capsule (500 mg total) by mouth 2 (two) times a day for 7 days . 14 capsule 0 11/01/2020 11/08/2020 Active Start: 01-12-2020 End: 01-22-2020 take 1 capsule by mouth four times daily cephALEXin (KEFLEX) 500 MG capsule Take 1 (one) capsule (500 mg total) by mouth 4 (four) times a day for 10 days . 40 capsule 0 01/12/2020 01/22/2020 Active Comment on above: Take 1 capsule by mo [facility] three times daily for 7 days. clindamycin 300 mg oral capsule (4 sources) Lincosamide Antibacterial Start: 9 End: 9 take 1 capsule by mouth three times daily clindamycin (CLEOCIN) 300 MG capsule Take 1 (one) capsule (300 mg total) by mouth 3 (three) times a day for 7 days . 21 capsule 0 08/08/2019 08/15/2019 Active CPAP/BIPAP/OTHER (20 sources) Start: 3 End: CPAP/BIPAP/OTHER Indications: Severe obstructive sleep apnea Type .CPAPSettings into a note to see current settings/supplies/D ME information. 1 Each 06/11/2023 10/26/2050 Active Start: 06-11-2023 End: 10-26-2050 CPAP/BIPAP/OTHER Indications : Severe obstructive sleep apnea Type .CPAPSettings into a note to see current settings/supplies/DME information. 1 Each 0 06/11/2023 10/26/2050 Suspended Start: 06-11-2023 End: 10-26-2050 CPAP/BIPAP/OTHER Indications : Severe obstructive sleep apnea Type .CPAPSettings into a note to see current settings/supplies/DME information. 1 Each 0 06/11/2023 10/26/2050 Active Comment on above: Type .CPAPSettings i nto a note to see current settings/supplies/DME information. dapagliflozin 10 mg oral tablet (20 sources) Sodium-Glucose Cotransporter 2 Inhibitor Start: 2024 take 1 tablet by mouth once daily at breakfast dapagliflozin propanediol (FARXIGA) 10 mg tablet Indications: Type 2 diabetes mellitus with peripheral neuropathy (HCC) Take 1 tablet by mouth daily with breakfast. 90 tablet 1 03/10/2025 Active Start: 01-26-2025 End: 03-07-2025 take 1 tablet by mouth once daily at breakfast dapagliflozin propanediol (FARXIGA) 10 mg tablet Indications: Type 2 diabetes mellitus with peripheral neuropathy (HCC) Take 1 tablet by mouth daily with breakfast. 90 tablet 1 03/10/2025 Active Start: 03-23-2023 End: 06-08-2023 take 1 tablet by mouth once daily at breakfast dapagliflozin propanediol (FARXIGA) 10 mg tablet Indications: Type 2 diabetes mellitus without complication, with long-term current use of insulin (HCC) Take 1 tablet by mouth daily with breakfast. 30 tablet 2 06/08/2023 Active Comment on above: Take 1 tablet by rach th daily with breakfast. DEXCOM G7 SENSOR chris (20 sources) Start: 03-10-2025 DEXCOM G7 SENSOR chris Indications: Type 2 diabetes mellitus with peripheral neuropathy (HCC) 1 device as directed. 3 each 2 03/10/2025 Active Start: 02-28-2025 End: 03-07-2025 DEXCOM G7 SENSOR chris Indica tions: Type 2 diabetes mellitus with peripheral neuropathy (HCC) 1 device as directed. 3 each 2 02/28/2025 03/07/2025 Discontinued Start: 02-28-2025 DEXCOM G7 SENS OR chris Indications: Type 2 diabetes mellitus with peripheral neuropathy (HCC) 1 device as directed. 3 each 2 02/28/2025 Active Start: 01-26-2025 End: 02-28-2025 DEXCOM G7 SENSOR chris Indica tions: Type 2 diabetes mellitus with peripheral neuropathy (HCC) 1 device as directed. 3 each 01/26/2025 02/28/2025 Discontinued Start: 01-26-2025 DEXCOM G7 SENS OR chris Indications: Type 2 diabetes mellitus with peripheral neuropathy (HCC) 1 device as directed. 3 each 01/26/2025 Active Start: 08-02-2024 DEXCOM G7 SENS OR chris as directed. 08/02/2024 Active gabapentin 600 mg oral tablet (20 sources) Anti-epileptic Agent Start: 03-10-2025 End: 06-08-2025 take 1 tablet by mouth once daily at bedtime gabapentin (NEURONTIN) 600 mg tablet Indications: Type 2 diabetes mellitus with peripheral neuropathy (HCC) , Fibromyalgia Take 1 tablet by mouth daily at bedtime for 90 days. 30 tablet 2 03/10/2025 06/08/2025 Active Start: 01-25-2024 End: 03-07-2025 take 1 tablet by mouth once daily at bedtime gabapentin (NEURONTIN) 600 mg tablet Indications: Type 2 diabetes mellitus with peripheral neuropathy (HCC) , Fibromyalgia Take 1 tablet by mouth daily at bedtime for 90 days. 30 tablet 2 08/22/2024 03/07/2025 Discontinued Start: 10-08-2023 End: 01-06-2024 take 1 tablet by mouth twice daily gabapentin (NEURONTIN) 600 mg tablet Indications: Type 2 diabetes mellitus with peripheral neuropathy (HCC) , Fibromyalgia Take 1 tablet by mouth two times a day for 90 days. 60 tablet 2 10/08/2023 Suspended Start: 11-11-2021 End: 09-06-2023 take 1 tablet by mouth twice daily gabapentin (NEURONTIN) 600 mg tablet Indications: Type 2 diabetes mellitus with peripheral neuropathy (HCC) , Fibromyalgia Take 1 tablet by mouth twice daily for 90 days. 60 tablet 2 06/08/2023 09/06/2023 Active Start: 06-07-2020 End: 06-11-2020 take 300 mg by mouth every eight hours 300 mg, Oral, Every 8 hours scheduled, First dose on Radha 06/07/20 at 1400 Start: 03-12-2020 End: 06-03-2021 take 1 tablet by mouth three times daily gabapentin (NEURONTIN) 600 MG tablet Indications: Fibromyalgia Take 1 (one) tablet (600 mg total) by mouth 3 (three) times a day . 270 tablet 06/03/2021 Active Start: 09-16-2019 End: 11-11-2019 take 1 tablet by mouth three times daily gabapentin (NEURONTIN) 600 MG tablet Indications: Fibromyalgia TAKE ONE TABLET BY MOUTH THREE TIMES DAILY 90 tablet 2 11/11/2019 Active Start: 08-24-2019 take 1 tablet by rach three times daily gabapentin (NEURONTIN) 600 MG tablet Indications: Fibromyalgia Take 1 (one) tablet (600 mg total) by mouth 3 (three) times a day . 90 tablet 0 08/24/2019 Active Start: 06-24-2019 End: 08-22-2019 take 1 tablet by mouth three times daily gabapentin (NEURONTIN) 600 MG tablet Indications: Fibromyalgia Take 1 (one) tablet (600 mg total) by mouth 3 (three) times a day . 90 tablet 0 06/24/2019 08/22/2019 Discontinued (Reorder) Start: 03-09-2018 End: 11-04-2018 take 1 tablet by mouth three times daily gabapentin (NEURONTIN) 600 MG tablet Indications: Fibromyalgia Take 1 (one) tablet (600 mg total) by mouth 3 (three) times a day . 90 tablet 5 11/04/2018 Active Start: 02-09-2018 take 1 tablet by rach th once daily gabapentin (NEURONTIN) 600 MG tablet Take 600 mg by mouth daily. 02/09/2018 Active Start: 03-26-2017 End: 02-24-2018 take 2 capsules by mouth three times daily gabapentin (NEURONTIN) 300 MG capsule Take 2 capsules by mouth 3 (three) times a day . 0 03/26/2017 02/24/2018 Discontinued (Patient Discharge) Start: 03-26-2017 take 1 capsule by mo ut three times daily gabapentin (NEURONTIN) 300 MG capsule Take 1 capsule by mouth 3 (three) times a day. 03/26/2017 Active Comment on above: Take 1 tablet by rach th twice daily for 30 days. Take 1 tablet by rach th twice daily for 90 days. Take 1 tablet by rach th two times a day for 90 days. glimepiride 4 mg oral tablet (20 sources) Sulfonylurea Start: take 1 tablet by mouth once daily glimepiride (AMARYL) 4 mg tablet Indications: Type 2 diabetes mellitus with peripheral neuropathy (HCC) Take 1 tablet by mouth once daily. 90 tablet 1 03/10/2025 Active Start: 02-28-2025 End: 03-07-2025 take 1 tablet by mouth once daily glimepiride (AMARYL) 4 mg tablet Indications: Type 2 diabetes mellitus with peripheral neuropathy (HCC) Take 1 tablet by mouth once daily. 90 tablet 1 03/10/2025 Active Start: 08-29-2022 End: 06-29-2023 take 2 tablets by mouth once daily at breakfast glimepiride (AMARYL) 4 mg tablet Indications: Type 2 diabetes mellitus with peripheral neuropathy (HCC) TAKE 2 TABLETS BY MOUTH ONCE DAILY WITH BREAKFAST 60 tablet 5 04/08/2023 06/29/2023 Discontinued Start: 07-21-2022 End: 08-29-2022 take 3 tablets by mouth once daily at breakfast glimepiride (AMARYL) 2 mg tablet Indications: Type 2 diabetes mellitus with peripheral neuropathy (HCC) Take 3 tablets by mouth daily with breakfast. 90 tablet 2 07/21/2022 08/29/2022 Discontinued Start: 02-03-2022 End: 07-19-2022 take 3 tablets by mouth once daily at breakfast glimepiride (AMARYL) 2 mg tablet Indications: Type 2 diabetes mellitus with peripheral neuropathy (HCC) Take 3 tablets by mouth daily with breakfast. 90 tablet 2 02/03/2022 07/19/2022 Discontinued Start: 09-13-2019 End: 02-03-2022 take 1 tablet by mouth twice daily glimepiride (AMARYL) 2 MG tablet Indications: Uncontrolled type 2 diabetes mellitus with hyperglycemia, with long-term current use of insulin (HCC) Take 1 tablet PO BID . 180 tablet 3 09/11/2020 Active Start: 09-27-2018 take 1 tablet by rach th twice daily glimepiride (AMARYL) 2 MG tablet Indications: Uncontrolled type 2 diabetes mellitus with hyperglycemia, with long-term current use of insulin (HCC) Take 1 tablet PO BID . 180 tablet 3 09/27/2018 Active Start: 07-09-2018 take 1 tablet by rcah th twice daily glimepiride (AMARYL) 2 MG tablet Indications: Uncontrolled type 2 diabetes mellitus with hyperglycemia, with long-term current use of insulin (HCC) Take 1 tablet PO BID. 60 tablet 5 07/09/2018 Active Start: 03-09-2018 End: 03-09-2018 take 2 tablets by mouth twice daily at breakfast glimepiride (AMARYL) 1 MG tablet TAKE 2 TABLET BY ORAL ROUTE 2 TIMES EVERY DAY WITH BREAKFAST AND SUPPER 120 tablet 6 03/09/2018 Active take 1 tablet by rach th twice daily glimepiride (AMARYL) 1 MG tablet Take 1 mg by mouth 2 (two) times a day. Active Comment on above: Take 1 tablet by rach th twice daily with meals. Take 3 tablets by mo uth daily with breakfast. Take 2 tablets by mo uth daily with breakfast. TAKE 2 TABLETS BY MO UTH ONCE DAILY WITH BREAKFAST ibuprofen 600 mg oral tablet (8 sources) Nonsteroidal Anti-inflammatory Drug Start: 08-08-2019 End: 08-11-2019 take 1 tablet by mouth twice daily ibuprofen (ADVIL,MOTRIN) 600 MG tablet Take 1 (one) tablet (600 mg total) by mouth 2 (two) times a day for 3 days . 6 tablet 0 08/08/2019 08/11/2019 Active Start: 12-10-2018 End: 12-15-2018 take 1 tablet by mouth three times daily ibuprofen (ADVIL,MOTRIN) 800 MG tablet Take 1 (one) tablet (800 mg total) by mouth 3 (three) times a day for 5 days . 15 tablet 0 12/10/2018 12/15/2018 Active 3 ml insulin glargine 100 unt/ml pen injector (20 sources) Insulin Analogue Start: 04-03-2025 LANTUS SOLOST AR U-100 INSULIN 100 unit/mL (3 mL) Indications: Type 2 diabetes mellitus without complication, with long-term current use of insulin (HCC) Inject 60 Units subcutaneously daily at bedtime. 18 mL 5 04/03/2025 Active Start: 03-10-2025 End: 04-03-2025 LANTUS SOLOSTAR U-100 INSULI N 100 unit/mL (3 mL) Inject 50 Units subcutaneously daily at bedtime. 15 mL 5 03/10/2025 04/03/2025 Discontinued Start: 08-02-2024 End: 03-07-2025 LANTUS SOLOSTAR U-100 INSULI N 100 unit/mL (3 mL) INJECT 50 UNITS SUBCUTANEOUSLY AT BEDTIME 08/02/2024 03/07/2025 Discontinued Start: 01-25-2024 End: 08-30-2024 insulin glargine U-300 conc (TOUJEO MAX) 300 unit/mL (3 mL) inpn Indications: Type 2 diabetes mellitus with peripheral neuropathy (HCC) Inject 55 Units subcutaneously daily at bedtime. 01/25/2024 08/30/2024 Discontinued Start: 12-25-2023 inject 30 [IU] by nance bcutaneous injection once daily at bedtime insulin glargine U-300 conc (TOUJEO MAX) 300 unit/mL (3 mL) inpn Indications: Type 2 diabetes mellitus with peripheral neuropathy (HCC) Inject 30 Units subcutaneously daily at bedtime. 15 mL 2 12/25/2023 Suspended Start: 06-08-2023 insulin glargi ne (LANTUS SOLOSTAR U-100 INSULIN) 100 unit/mL (3 mL) Indications: Type 2 diabetes mellitus without complication, with long-term current use of insulin (HCC) Inject 50 Units subcutaneously daily at bedtime. 18 Each 1 06/08/2023 Active Start: 12-23-2022 End: 06-08-2023 insulin glargine (LANTUS KARMEN OSTAR U-100 INSULIN) 100 unit/mL (3 mL) Indications: Type 2 diabetes mellitus without complication, with long-term current use of insulin (HCC) Inject 50 Units subcutaneously daily at bedtime. 18 Each 1 06/08/2023 Active Start: 07-21-2022 End: 12-23-2022 insulin glargine (LANTUS KARMEN OSTAR U-100 INSULIN) 100 unit/mL (3 mL) Indications: Type 2 diabetes mellitus with peripheral neuropathy (HCC) Inject 60 Units subcutaneously daily at bedtime. 5 Each 2 12/22/2022 12/23/2022 Discontinued Start: 07-21-2022 insulin glargi ne (LANTUS SOLOSTAR U-100 INSULIN) 100 unit/mL (3 mL) Indications: Type 2 diabetes mellitus with peripheral neuropathy (HCC) Inject 60 Units subcutaneously daily at bedtime. 5 Each 2 07/21/2022 Active Start: 02-03-2022 End: 07-19-2022 insulin glargine (LANTUS KARMEN OSTAR U-100 INSULIN) 100 unit/mL (3 mL) Indications: Type 2 diabetes mellitus with peripheral neuropathy (HCC) Inject 60 Units subcutaneously daily at bedtime. 5 Pen 2 02/03/2022 07/19/2022 Discontinued Start: 11-11-2021 End: 02-03-2022 insulin glargine (LANTUS KARMEN OSTAR U-100 INSULIN) 100 unit/mL (3 mL) Indications: Type 2 diabetes mellitus with peripheral neuropathy (HCC) Inject 55 Units subcutaneously daily at bedtime. 5 Pen 2 11/11/2021 02/03/2022 Discontinued Start: 07-09-2020 insulin glargi ne (Lantus Solostar U-100 Insulin) 100 unit/mL (3 mL) InPn Take 55units every evening at bedtime . 30 mL 6 07/09/2020 Active Start: 06-07-2020 End: 06-11-2020 inject 50 [IU] by subcutaneous injection once daily 50 Units, Subcutaneous, Nightly, First dose on Radha 06/07/20 at 2100 Do not mix with other insulins in a syringe. "Do NOT hold basal insulin without notifying physician" Start: 05-22-2020 End: 05-22-2020 insulin glargine (Lantus Karmen ostar U-100 Insulin) 100 unit/mL (3 mL) InPn Use as directed, approx 55 units per day . 30 mL 6 05/22/2020 05/22/2020 Discontinued (Therapy completed) Start: 04-12-2020 End: 06-26-2020 insulin glargine (Basaglar K wikPen U-100 Insulin) 100 unit/mL (3 mL) InPn Indications: Uncontrolled type 2 diabetes mellitus with hyperglycemia, with long-term current use of insulin (HCC) Use nightly as directed, approx 50 units . 15 Syringe 3 04/12/2020 06/26/2020 Discontinued (Patient's Request) Start: 08-22-2019 insulin glargi ne (Basaglar KwikPen U-100 Insulin) 100 unit/mL (3 mL) InPn Indications: Uncontrolled type 2 diabetes mellitus with hyperglycemia, with long-term current use of insulin (HCC) Use nightly as directed, approx 50 units . 15 Syringe 3 08/22/2019 Active Start: 03-19-2019 BASAGLAR KWIKP EN U-100 INSULIN 100 unit/mL (3 mL) InPn Indications: Uncontrolled type 2 diabetes mellitus with hyperglycemia, with long-term current use of insulin (HCC) INJECT 40 UITS UNDER THE SKIN NIGHTLY 15 Syringe 1 03/19/2019 Active Start: 07-09-2018 inject 40 [IU] by nance bcutaneous injection once daily, then inject 100 [IU] by subcutaneous injection insulin glargine (BASAGLAR KWIKPEN U-100 INSULIN) 100 unit/mL (3 mL) InPn Indications: Uncontrolled type 2 diabetes mellitus with hyperglycemia, with long-term current use of insulin (HCC) Inject 40 (forty) Units under the skin nightly. 5 pen 5 07/09/2018 Active Start: 07-09-2018 insulin glargi ne (BASAGLAR KWIKPEN U-100 INSULIN) 100 unit/mL (3 mL) InPn Indications: Uncontrolled type 2 diabetes mellitus with hyperglycemia, with long-term current use of insulin (HCC) Inject 40 (forty) Units under the skin nightly. 5 pen 5 07/09/2018 Active Start: 05-05-2018 End: 05-05-2018 LANTUS SOLOSTAR U-100 INSULI N 100 unit/mL (3 mL) InPn Inject 40 (forty) Units under the skin nightly. 15 mL 5 05/05/2018 Active Start: 11-26-2017 End: 03-26-2018 BASAGLAR KWIKPEN U-100 INSUL IN 100 unit/mL (3 mL) InPn Indications: Uncontrolled type 2 diabetes mellitus with hyperglycemia, with long-term current use of insulin (HCC) Inject 30 (thirty) Units under the skin nightly. 3 mL 11/26/2017 03/26/2018 Discontinued (Dose adjustment) Start: 11-26-2017 End: 03-26-2018 BASAGLAR KWIKPEN U-100 INSUL IN 100 unit/mL (3 mL) InPn Indications: Uncontrolled type 2 diabetes mellitus with hyperglycemia, with long-term current use of insulin (HCC) Inject 30 (thirty) Units under the skin nightly. 3 mL 11/26/2017 03/26/2018 Discontinued Start: 11-26-2017 BASAGLAR KWIKP EN U-100 INSULIN 100 unit/mL (3 mL) InPn Indications: Uncontrolled type 2 diabetes mellitus with hyperglycemia, with long-term current use of insulin (HCC) Inject 30 (thirty) Units under the skin nightly. 3 mL 11/26/2017 Active Start: 09-10-2017 BASAGLAR KWIKP EN 100 unit/mL (3 mL) InPn Inject 10 Units under the skin daily. 09/10/2017 Active Comment on above: Inject 55 Units subc utaneously daily at bedtime. Inject 60 Units subc utaneously daily at bedtime. Inject 50 Units subc utaneously daily at bedtime. 3 ml insulin lispro 100 unt/ml pen injector (20 sources) Insulin Analogue Start: 03-10-2025 End: 03-10-2025 insulin lispro (HUMALOG KWIKPEN INSULIN) 100 unit/mL Indications: Type 2 diabetes mellitus with peripheral neuropathy (HCC) Inject 35 Units subcutaneously three times a day before meals. If BS over 200 take 30 units. If BS is under 200 but greater than 150 take 25 units. 15 mL 1 03/10/2025 Active Start: 01-26-2025 End: 03-07-2025 insulin lispro (HUMALOG KWIK PEN INSULIN) 100 unit/mL Indications: Type 2 diabetes mellitus with peripheral neuropathy (HCC) Inject 35 Units subcutaneously three times a day before meals. If BS over 200 take 30 units. If BS is under 200 but greater than 150 take 25 units. 3 mL 01/26/2025 03/07/2025 Discontinued Start: 01-25-2024 insulin lispro (HUMALOG KWIKPEN INSULIN) 100 unit/mL Indications: Type 2 diabetes mellitus with peripheral neuropathy (HCC) Inject 35 Units subcutaneously three times a day before meals. If BS over 200 take 30 units. If BS is under 200 but greater than 150 take 25 units. 01/25/2024 Active Start: 10-08-2023 insulin lispro (HUMALOG KWIKPEN INSULIN) 100 unit/mL Indications: Type 2 diabetes mellitus with peripheral neuropathy (HCC) Inject 25-30 Units subcutaneously three times a day before meals. If BS over 200 take 30 units. If BS is under 200 but greater than 150 take 25 units. 9 Each 0 10/08/2023 Suspended Start: 07-21-2022 End: 06-08-2023 insulin lispro (HUMALOG KWIK PEN INSULIN) 100 unit/mL Indications: Type 2 diabetes mellitus with peripheral neuropathy (HCC) Inject 25-30 Units subcutaneously three times daily before meals. If BS over 200 take 30 units. If BS is under 200 but greater than 150 take 25 units. 9 Each 2 06/08/2023 Active Start: 02-03-2022 End: 07-19-2022 insulin lispro (HUMALOG KWIK PEN INSULIN) 100 unit/mL Indications: Type 2 diabetes mellitus with peripheral neuropathy (HCC) Inject 35 Units subcutaneously three times daily before meals. 9 Pen 2 02/03/2022 07/19/2022 Discontinued Start: 11-22-2021 End: 02-03-2022 insulin lispro (HUMALOG KWIK PEN INSULIN) 100 unit/mL Indications: Type 2 diabetes mellitus with peripheral neuropathy (HCC) Inject 30 Units subcutaneously three times daily before meals. 9 Pen 2 11/22/2021 02/03/2022 Discontinued Start: 04-09-2020 End: 07-09-2020 inject 26 [IU] by subcutaneous injection three times daily before mealtime insulin lispro (HumaLOG) 100 unit/mL injection Inject 26 (twenty six) Units under the skin 3 (three) times a day before meals . 30 mL 11 04/09/2020 07/09/2020 Discontinued Start: 10-12-2019 insulin lispro (HumaLOG U-100 Insulin) 100 unit/mL injection Use as directed approv. 60 units daily total. . 20 mL 5 10/12/2019 Active Start: 08-22-2019 insulin lispro (Admelog U-100 Insulin lispro) 100 unit/mL injection Take three times daily before meals, approx 60 units daily . 60 mL 3 08/22/2019 Active Start: 04-17-2019 inject 15 [IU] by nance bcutaneous injection three times daily before mealtime ADMELOG U-100 INSULIN LISPRO 100 unit/mL injection INJECT 15 UNITS SUBCUTANEOUSLY THREE TIMES DAILY BEFORE MEALS 10 mL 5 04/17/2019 Active Start: 05-05-2018 insulin lispro (HumaLOG KwikPen Insulin) 100 unit/mL InPn Inject 15 (fifteen) Units under the skin 3 (three) times a day. 15 mL 5 05/05/2018 Active Start: 04-30-2018 End: 05-05-2018 insulin lispro (HumaLOG) 100 unit/mL injection Indications: Type 2 diabetes mellitus without complication, with long-term current use of insulin (HCC) Inject 15 (fifteen) Units under the skin 3 (three) times a day before meals. 10 mL 11 05/05/2018 05/05/2018 Discontinued Start: 04-01-2018 End: 05-05-2018 inject 15 [IU] by subcutaneous injection three times daily, then inject 100 [IU] by subcutaneous injection insulin lispro (HumaLOG KwikPen Insulin) 100 unit/mL InPn Inject 15 (fifteen) Units under the skin 3 (three) times a day. 15 mL 5 05/05/2018 Active Start: 02-24-2018 End: 03-26-2018 insulin lispro (HumaLOG Kwik Pen Insulin) 100 unit/mL InPn Indications: Type 2 diabetes mellitus with hyperglycemia, with long-term current use of insulin (HCC) Inject 10 (ten) Units under the skin 3 (three) times a day before meals. 1 pen 6 02/24/2018 03/26/2018 Discontinued insulin lispro ( HumaLOG) 100 unit/mL injection Inject under the skin 3 (three) times a day before meals. Active insulin lispro ( HumaLOG) 100 unit/mL injection Indications: type 2 diabetes mellitus Inject 15 Units under the skin 3 (three) times a day before meals. Active Comment on above: Inject 30 Units subc utaneously three times daily before meals. Inject 35 Units subc utaneously three times daily before meals. Inject 25-30 Units s ubcutaneously three times daily before meals. If BS over 200 take 30 units. If BS is under 200 but greater than 150 take 25 units. Inject 25-30 Units s ubcutaneously three times a day before meals. If BS over 200 take 30 units. If BS is under 200 but greater than 150 take 25 units. 3 ml insulin aspart, human 100 unt/ml pen injector (20 sources) Insulin Analog Start: 10-09-2020 insulin aspart U-100 (NovoLOG Flexpen U-100 Insulin) 100 unit/mL (3 mL) InPn Inject 30 (thirty) Units under the skin 3 (three) times a day before meals . 15 pen 12 10/09/2020 Active Start: 06-14-2020 End: 06-14-2021 inject 26 [IU] by subcutaneous injection three times daily before mealtime insulin aspart U-100 (NovoLOG U-100 Insulin aspart) 100 unit/mL injection Inject 26 (twenty six) Units under the skin 3 (three) times a day before meals . 30 mL 5 06/14/2020 06/14/2021 Active Start: 05-22-2020 End: 05-22-2020 insulin aspart U-100 (NovoLO G U-100 Insulin aspart) 100 unit/mL injection Use as directed, approx 75 total units per day . 30 mL 6 05/22/2020 05/22/2020 Discontinued (Therapy completed) Comment on above: Inject 30 Units subc utaneously three times daily before meals. isopropyl alcohol 0.7 ml/ml medicated pad (20 sources) Start: 12-01-2021 End: 09-14-2022 alcohol swabs Indications: Type 2 diabetes mellitus with peripheral neuropathy (HCC) Apply 1 application to affected area four times daily. 120 Each 5 03/18/2022 09/14/2022 Active Start: 10-09-2020 Alcohol Prep P ads PadM Use as directed 4x daily. DX code E11.65 . 400 each 3 10/09/2020 Active Start: 08-22-2019 End: 09-11-2020 Alcohol Prep Pads PadM Use a s directed 4x daily. DX code E11.65 . 400 each 3 09/11/2020 Active Start: 03-31-2019 ALCOHOL PREP P ADS PadM Use as directed 4x daily. DX code E11.65 . 200 each 5 03/31/2019 Active Start: 05-07-2018 ALCOHOL PREP P ADS PadM Comment on above: Use as directed 4x d aily. DX code E11.65 . Apply 1 application to affected area four times daily. lisinopril 20 mg oral tablet (20 sources) Angiotensin Converting Enzyme Inhibitor Start: 03-10-2025 take 1 tablet by mouth once daily lisinopril (ZESTRIL) 20 mg tablet Indications: Hypertension, essential Take 1 tablet by mouth once daily. 90 tablet 1 03/10/2025 Active Start: 03-18-2022 End: 03-07-2025 take 1 tablet by mouth once daily lisinopril (ZESTRIL) 20 mg tablet Indications: Hypertension, essential TAKE 1 TABLET BY MOUTH EVERY DAY 90 tablet 02/09/2025 03/07/2025 Discontinued Start: 08-24-2019 End: 02-26-2022 take 1 tablet by mouth once daily lisinopril (ZESTRIL, PRINIVIL) 20 mg tablet Indications: Hypertension, essential Take 1 tablet by mouth once daily. 90 tablet 0 11/28/2021 Active Start: 07-09-2018 End: 08-22-2019 take 1 tablet by mouth once daily lisinopril (PRINIVIL,ZESTRIL) 20 MG tablet Indications: Hypertension, unspecified type Take 1 (one) tablet (20 mg total) by mouth daily . 30 tablet 11 11/04/2018 Active Start: 03-26-2018 take 1 tablet by rach th once daily lisinopril (PRINIVIL,ZESTRIL) 20 MG tablet Indications: Hypertension, unspecified type Take 1 (one) tablet (20 mg total) by mouth daily. 30 tablet 3 03/26/2018 Active Start: 03-26-2017 End: 03-26-2018 take 1 tablet by mouth once daily lisinopril (PRINIVIL,ZESTRIL) 10 MG tablet Take 1 tablet by mouth daily. 0 03/26/2017 03/26/2018 Discontinued (Dose adjustment) take 2 tablets by mo uth once daily lisinopril 5 MG Tab tablet Take 10 mg by mouth daily. 0 Active Comment on above: Take 1 tablet by rach th once daily. Take 1 tablet by rach th once daily Sodium,Potassium,Ma g Sulfates 17.5 Gram-3.13 Gram-1.6 Gram Oral Soln (1 source) Start: 7 End: 7 take 177 mL by mouth once sodium sulfate, magnesium sulfate, potassium sulfate (SUPREP BOWEL PREP KIT) solution Take 177 mL (1 each total) by mouth once for 1 dose. 1 Bottle 0 04/20/2017 04/20/2017 Active meloxicam 15 mg oral tablet (20 sources) Nonsteroidal Anti-inflammatory Drug Start: 1 End: 2 take 1 tablet by mouth once daily meloxicam (MOBIC) 15 MG tablet Indications: Fibromyalgia Take 1 (one) tablet (15 mg total) by mouth daily . 90 tablet 1 06/03/2021 Active Start: 07-09-2018 End: 06-11-2020 take 1 tablet by mouth once daily meloxicam (MOBIC) 15 MG tablet Indications: Fibromyalgia Take 1 (one) tablet (15 mg total) by mouth daily . 30 tablet 11 11/04/2018 Active Start: 09-22-2017 End: 02-24-2018 take 1 tablet by mouth once daily meloxicam (MOBIC) 15 MG tablet Take 1 (one) tablet (15 mg total) by mouth daily. 30 tablet 5 02/24/2018 Active Comment on above: Take 15 mg by mouth. metoprolol tartrate 25 mg oral tablet (20 sources) beta-Adrenergic [place] Start: 03-10-2025 take 1 tablet by mouth every twelve hours metoprolol tartrate, short acting, (LOPRESSOR) 25 mg tablet Indications: Hypertension, essential Take 1 tablet by mouth every 12 hours. 180 tablet 1 03/10/2025 Active Start: 10-08-2023 End: 03-07-2025 take 1 tablet by mouth twice daily metoprolol tartrate, short acting, (LOPRESSOR) 25 mg tablet Indications: Hypertension, essential TAKE 1 TABLET BY MOUTH 2 TIMES A DAY 180 tablet 02/09/2025 03/07/2025 Discontinued Start: 01-17-2020 End: 06-08-2023 take 1 tablet by mouth twice daily metoprolol tartrate, short acting, (LOPRESSOR) 25 mg tablet Indications: Hypertension, essential Take 1 tablet by mouth twice daily. 60 tablet 5 06/08/2023 Active Start: 10-06-2018 End: 11-04-2018 take 1 tablet by mouth twice daily metoprolol tartrate (LOPRESSOR) 25 MG tablet Indications: Hypertension, unspecified type Take 1 (one) tablet (25 mg total) by mouth 2 (two) times a day . 60 tablet 11 11/04/2018 Active Start: 12-02-2017 End: 10-06-2018 take 0.5 tablet by mouth twice daily metoprolol tartrate (LOPRESSOR) 25 MG tablet Take 1/2 tablet by mouth twice a day. 30 tablet 11 12/02/2017 10/06/2018 Discontinued (Reorder (Suppress CancelRx Message to Pharmacy)) Start: 11-26-2017 End: 12-02-2017 metoprolol succinate (TOPROL -XL) 25 MG 24 hr tablet Indications: Chest pain of uncertain etiology Pt is taking 1/2 tablet twice daily . 30 tablet 6 11/26/2017 12/02/2017 Discontinued Comment on above: Take 1 tablet by rach th twice daily. Take 1 tablet by rach th twice daily Take 1 tablet by rach th two times a day. MULTI-VITAMIN ORAL (20 sources) take 1 tablet by mouth once daily MULTI-VITAMIN ORAL Take 1 tablet by mouth once daily. Active take 1 tablet by mouth once tsering y MULTI-VITAMIN ORAL Take 1 tablet by mouth once daily. 0 Suspended take 1 tablet by mouth once tsering y MULTI-VITAMIN ORAL Take 1 tablet by mouth once daily. 0 Active Comment on above: Take 1 tablet by rach th once daily. 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 12 tablet 0 01/25/2024 01/28/2024 Active pantoprazole 40 mg delayed release oral tablet (20 sources) Proton Pump Inhibitor Start: 03-10-20 take 1 tablet by mouth once daily pantoprazole DR (PROTONIX) 40 mg tablet Indications: Gastroesophageal reflux disease, unspecified whether esophagitis present Take 1 tablet by mouth once daily. 90 tablet 1 03/10/2025 Active Start: 10-08-2023 End: 03-07-2025 take 1 tablet by mouth once daily pantoprazole DR (PROTONIX) 40 mg tablet Indications: Gastroesophageal reflux disease, unspecified whether esophagitis present Take 1 tablet by mouth once daily. 90 tablet 1 03/10/2025 Active Start: 11-26-2017 End: 06-08-2023 take 1 tablet by mouth once daily pantoprazole DR (PROTONIX) 40 mg tablet Indications: Gastroesophageal reflux disease, unspecified whether esophagitis present Take 1 tablet by mouth once daily. 30 tablet 5 06/08/2023 Active Start: 09-10-2017 take 1 tablet by rach th once daily pantoprazole (PROTONIX) 40 MG tablet Take 40 mg by mouth daily . 09/10/2017 Active Comment on above: Take 1 tablet by rach th once daily. Take 1 tablet by rach th once daily Pen Needle, Diabetic 31 Gauge X 5/16" (13 sources) Start: 11-26-2017 pen needle, diabetic 31 gauge x 5/16" Ndle Indications: Uncontrolled type 2 diabetes mellitus with hyperglycemia, with long-term current use of insulin (HCC) To use daily at bedtime with Basaglar insulin. 30 each 6 11/26/2017 Active pen needle, diabetic 31 gauge x 5/16" Ndle (15 sources) Start: 11-26-2017 pen needle, diabetic 31 gauge x 5/16" Ndle Indications: Uncontrolled type 2 diabetes mellitus with hyperglycemia, with long-term current use of insulin (HCC) To use daily at bedtime with Basaglar insulin. 30 each 6 11/26/2017 Active penicillin v potassium 500 mg oral tablet (8 sources) Start: 03-02-2025 End: 03-17-2025 take 1 tablet by mouth four times daily penicillin V potassium 500 mg tablet Take 1 tablet by mouth four times daily for 7 days. 28 tablet 03/10/2025 03/17/2025 Active Start: 09-30-2020 End: 10-07-2020 take 1 tablet by mouth three times daily penicillin v potassium (VEETID) 250 MG tablet Take 1 (one) tablet (250 mg total) by mouth 3 (three) times a day for 7 days . 20 tablet 0 09/30/2020 10/07/2020 Active semaglutide (OZEMPIC) 0.25 mg or 0.5 mg (2 mg/3 mL) pen (11 sources) Start: 03-10-2025 inject 0.5 mg by subcutaneous injection every week semaglutide (OZEMPIC) 0.25 mg or 0.5 mg (2 mg/3 mL) pen Indications: Type 2 diabetes mellitus with peripheral neuropathy (HCC) Inject 0.5 mg subcutaneously one time a week. 3 mL 2 03/10/2025 Active Start: 02-28-2025 End: 03-07-2025 inject 0.5 mg by subcutaneous injection every week semaglutide (OZEMPIC) 0.25 mg or 0.5 mg (2 mg/3 mL) pen Indications: Type 2 diabetes mellitus with peripheral neuropathy (HCC) Inject 0.5 mg subcutaneously one time a week. 3 mL 2 02/28/2025 03/07/2025 Discontinued Start: 02-28-2025 inject 0.5 mg by sub cutaneous injection every week semaglutide (OZEMPIC) 0.25 mg or 0.5 mg (2 mg/3 mL) pen Indications: Type 2 diabetes mellitus with peripheral neuropathy (HCC) Inject 0.5 mg subcutaneously one time a week. 3 mL 2 02/28/2025 Active Start: 10-08-2023 End: 01-05-2024 inject 0.5 mg by subcutaneous injection every week semaglutide (OZEMPIC) 0.25 mg or 0.5 mg (2 mg/3 mL) pen Indications: Type 2 diabetes mellitus with peripheral neuropathy (HCC) INJECT 0.5 MG. SUBCUTANEOUSLY ONCE A WEEK 6 mL 0 10/08/2023 01/05/2024 Discontinued Start: 10-08-2023 inject 0.5 mg by sub cutaneous injection every week semaglutide (OZEMPIC) 0.25 mg or 0.5 mg (2 mg/3 mL) pen Indications: Type 2 diabetes mellitus with peripheral neuropathy (HCC) INJECT 0.5 MG. SUBCUTANEOUSLY ONCE A WEEK 6 mL 0 10/08/2023 Active Comment on above: INJECT 0.5 MG. SUBCU TANEOUSLY ONCE A WEEK Sure Comfort Insulin Syringe 0.3 Ml 31 Gauge X 5/16" (3 sources) Start: 05-07-2018 SURE COMFORT INSULIN SYRINGE 0.3 mL 31 gauge x 5/16 Syrg True Metrix Glucose Test Strip (14 sources) Start: 03-26-2018 TRUE METRIX GLUCOSE TEST STRIP strips Indications: Uncontrolled type 2 diabetes mellitus with hyperglycemia, with long-term current use of insulin (HCC) To test three to four times a day. 200 each 11 03/26/2018 Active Start: 01-21-2018 End: 03-26-2018 TRUE METRIX GLUCOSE TEST STR IP strips Start: 01-21-2018 TRUE METRIX GL UCOSE TEST STRIP strips TRUE METRIX GLUCOSE TEST STR IP strips (2 sources) Start: 01-21-2018 TRUE METRIX GL UCOSE TEST STRIP strips Trueplus Lancets 33 Gauge (13 sources) Start: 01-13-2018 TRUEPLUS AUREA TS 33 gauge Misc TRUEPLUS LANCETS 33 gauge Mi sc (2 sources) Start: 01-13-2018 TRUEPLUS AUREA TS 33 gauge Misc Completed/Discontinued Medications Medication Drug Class(es) Dates Sig (Normalized) Sig (Original) acetaminophen 325 mg oral tablet (1 source) Start: 06-07-2020 End: 06-11-2020 take 1 tablet by mouth every four hours as needed 650 mg, Oral, Every 4 hours PRN, mild pain, fever 100.4 F or greater, Starting [facility] 06/07/20 at 1146 acetaminophen 325 mg / HYDROcodone bitartrate 5 mg oral tablet (2 sources) Opioid Agonist Start: 09-30-2020 End: 09-30-2020 HYDROcodone-aceta minophen (NORCO) 5-325 mg per tablet 1 tablet Start: 08-08-2019 End: 08-08-2019 HYDROcodone-acetaminophen (N ORCO) 5-325 mg per tablet 1 tablet acetaminophen 325 mg / oxyCODONE hydrochloride 5 mg oral tablet (20 sources) Opioid Agonist Start: 06-26-2020 End: 07-03-2020 take 1 tablet by mouth every six hours as needed for pain, then take 7 tablets by mouth as needed for pain oxyCODONE-acetaminophen (PERCOCET) 5-325 mg per tablet Indications: Acute post-operative pain , Degenerative disc disease, cervical Take 1 (one) tablet by mouth every 6 (six) hours as needed for pain (Days supply per fill: 7) . 28 tablet 0 06/26/2020 07/03/2020 Start: 06-10-2020 End: 06-17-2020 take 1 tablet by mouth once as needed, then take 2 tablets by mouth every four hours as needed, then take 7 tablets by mouth as needed oxyCODONE-acetaminophen (PERCOCET) 5-325 mg per tablet Indications: S/P cervical spinal fusion Take 1 (one) tablet to 2 (two) tablets by mouth every 4 (four) hours as needed (Days supply per fill: 7) . 40 tablet 0 06/10/2020 06/17/2020 Active Start: 06-07-2020 End: 06-11-2020 take 1-2 tablets by mouth every four hours as needed 1-2 tablet, Oral, Every 4 hours PRN, moderate to severe pain, Starting [facility] 06/07/20 at 1146 [] Initiate with 1 tablet oral every 4 hours prn moderate to severe pain. [] For unrelieved pain, may repeat one tablet oral dose within 60 minutes of initial dose. [] If pain is RELIEVED after repeat dose, change to two tablets of 5/325 mg oral every 4 hours prn moderate to severe pain. [] If pain is UNrelieved after repeat dose, or patient requires dose reduction, call physician. Start: 05-26-2018 End: 06-02-2018 take 1 tablet by mouth every six hours as needed for pain, then take 7 tablets by mouth as needed for pain oxyCODONE-acetaminophen (PERCOCET) 5-325 mg per tablet Indications: H/O spinal fusion Take 1 (one) tablet by mouth every 6 (six) hours as needed for pain (Days supply per fill: 7). 28 tablet 0 05/26/2018 06/02/2018 Active End: 05-05-2018 oxyCODONE-acetaminophen (PER COCET) 5-325 mg per tablet alogliptin 25 mg oral tablet (20 sources) Start: 12-21-2017 End: 07-20-2018 take 1 tablet by mouth once daily alogliptin 25 mg Tab Indications: Uncontrolled type 2 diabetes mellitus with hyperglycemia, with long-term current use of insulin (HCC) Take 1 (one) tablet (25 mg total) by mouth daily. 30 tablet 5 07/09/2018 07/20/2018 Discontinued amoxicillin 500 mg oral capsule (1 source) Penicillin-class Antibacterial Start: 11-21-2019 End: 11-21-2019 take 1 capsule by mouth once amoxicillin (AMOXIL) 500 MG capsule Take 1 (one) capsule (500 mg total) by mouth once Prior to dental surgery for 1 dose . 4 capsule 0 11/21/2019 11/21/2019 benzonatate 100 mg oral capsule (12 sources) Non-narcotic Antitussive Start: 01-19-2023 End: 03-23-2023 take 2 capsules by mouth every eight hours as needed for cough and cough benzonatate (TESSALON PERLES) 100 mg capsule Indications: Acute cough Take 2 capsules by mouth three times daily as needed for cough. 30 capsule 0 01/19/2023 03/23/2023 Discontinued Start: 11-01-2020 End: 11-08-2020 take 1 capsule by mouth three times daily as needed for cough benzonatate (TESSALON) 100 MG capsule Take 1 (one) capsule (100 mg total) by mouth 3 (three) times a day as needed for cough . 20 capsule 0 11/01/2020 11/08/2020 Active Comment on above: Take 2 capsules by m outh three times daily as needed for cough. betamethasone 3 mg/ml / betamethasone acetate 3 mg/ml injectable suspension (1 source) Corticosteroid Start: 01-01-2021 End: 01-01-2021 betamethasone acetate-betamethasone sodium phosphate (CELESTONE SOLUSPAN) injection 6 mg Start: 01-01-2021 End: 01-01-2021 betamethasone acetate-betame thasone sodium phosphate (CELESTONE SOLUSPAN) injection 6 mg Blood-Glucose Meter (ACCU-CH EK CYDNEY PLUS METER) (2 sources) Start: 02-06-2022 End: 02-06-2022 Blood-Glucose Meter (ACCU-CH EK CYDNEY PLUS METER) Indications: Type 2 diabetes mellitus without complication, with long-term current use of insulin (HCC) ACCU-CHEK FASTCLIX METER patient checks sugars 3 times daily Dx E11.42 1 Each 0 02/06/2022 02/06/2022 Discontinued End: 02-06-2022 Blood-Glucose Meter (ACCU-CH EK CYDNEY PLUS METER) ACCU-CHEK FASTCLIX METER patient checks sugars 3 times daily Dx E11.42 0 02/06/2022 Discontinued Comment on above: ACCU-CHEK FASTCLIX Enma JACKSON patient checks sugars 3 times daily Dx E11.42 blood-glucose meter (TRUE METRIX GLUCOSE METER) Mis (20 sources) Start: 02-25-2019 End: 07-09-2020 blood-glucose meter (TRUE METRIX GLUCOSE METER) Misc Use to check BG 3x daily. DX code E11.65 Needs True Metrix Meter . 1 each 0 02/25/2019 07/09/2020 Discontinued Start: 02-25-2019 blood-glucose meter (TRUE METRIX GLUCOSE METER) Misc Use to check BG 3x daily. DX code E11.65 Needs True Metrix Meter . 1 each 0 02/25/2019 Active blood-glucose meter [facility] (20 sources) Start: 07-09-2020 End: 11-06-2020 blood-glucose meter [facility] Ind ications: Uncontrolled type 2 diabetes mellitus with hyperglycemia, with long-term current use of insulin (HCC) To check Blood sugar 4 times daily E11.65 . 1 each 0 07/09/2020 11/06/2020 Discontinued Start: 07-09-2020 blood-glucose meter [facility] Indications: Uncontrolled type 2 diabetes mellitus with hyperglycemia, with long-term current use of insulin (HCC) To check Blood sugar 4 times daily E11.65 . 1 each 0 07/09/2020 Active Start: 07-09-2018 End: 02-17-2019 blood-glucose meter [facility] Ind ications: Uncontrolled type 2 diabetes mellitus with hyperglycemia, with long-term current use of insulin (HCC) Check blood glucose 4 times daily. 1 each 0 07/09/2018 02/17/2019 Discontinued (Therapy completed) Start: 07-09-2018 blood-glucose meter [facility] Indications: Uncontrolled type 2 diabetes mellitus with hyperglycemia, with long-term current use of insulin (HCC) Check blood glucose 4 times daily. 1 each 0 07/09/2018 Active 5 ml bupivacaine hydrochloride 5 mg/ml injection (2 sources) Amide Local Anesthetic Start: 01-01-2021 End: 01-01-2021 bupivacaine (PF) (MARCAINE) 0.5 % (5 mg/mL) injection 5 mL Start: 01-01-2021 End: 01-01-2021 bupivacaine (PF) (MARCAINE) 0.5 % (5 mg/mL) injection 5 mL busPIRone hydrochloride 10 mg oral tablet (20 sources) Start: 02-29-2020 End: 02-28-2021 take 1 tablet by mouth three times daily busPIRone (BUSPAR) 10 MG tablet Indications: Anxiety TAKE ONE TABLET BY MOUTH THREE TIMES DAILY 90 tablet 5 11/07/2020 11/21/2020 Discontinued (Therapy completed) ceFAZolin 2000 mg injection (1 source) Cephalosporin Antibacterial Start: 06-07-2020 End: 06-08-2020 take 2000 mg intravenous route every eight hours 2,000 mg, Intravenous, at 100 mL/hr, Every 8 hours, First dose on [facility] 06/07/20 at 1600, For 2 doses Starting 8 hours after pre-procedure dose x 2 doses. Indication (POST PROCEDURE): Neurology cefTRIAXone 1000 mg injection (1 source) Cephalosporin Antibacterial Start: 01-12-2020 End: 01-12-2020 cefTRIAXone (ROCEPHIN) IVPB 1 g (premix) chlorhexidine gluconate 1.2 mg/ml mouthwash (5 sources) Start: 08-08-2019 End: 08-22-2019 take 15 mL by mouth twice daily chlorhexidine (Peridex) 0.12 % solution Apply 15 mL to the mouth or throat 2 (two) times a day for 14 days . 420 mL 0 08/08/2019 08/22/2019 Discontinued (Therapy completed) cyclobenzaprine hydrochloride 10 mg oral tablet (20 sources) Muscle Relaxant Start: 06-07-2020 End: 06-11-2020 take 10 mg by mouth every eight hours 10 mg, Oral, Every 8 hours scheduled, First dose on [facility] 06/07/20 at 1400 Start: 11-16-2019 End: 01-14-2020 take 1 tablet by mouth three times daily as needed for muscle spasms cyclobenzaprine (FLEXERIL) 5 MG tablet Indications: Chronic bilateral low back pain, unspecified whether sciatica present Take 1 (one) tablet (5 mg total) by mouth 3 (three) times a day as needed for muscle spasms . 90 tablet 0 12/15/2019 01/14/2020 Active Start: 12-10-2018 End: 12-15-2018 take 1 tablet by mouth three times daily as needed for muscle spasms cyclobenzaprine (FLEXERIL) 10 MG tablet Take 1 (one) tablet (10 mg total) by mouth 3 (three) times a day as needed for muscle spasms . 15 tablet 0 12/10/2018 12/15/2018 Active Start: 02-09-2018 take 1 tablet by rach three times daily as needed cyclobenzaprine (FLEXERIL) 10 MG tablet Take 10 mg by mouth 3 (three) times a day as needed. 02/09/2018 Active Start: 01-06-2018 End: 01-16-2018 take 1 tablet by mouth three times daily as needed for muscle spasms cyclobenzaprine (FLEXERIL) 10 MG tablet Take 1 (one) tablet (10 mg total) by mouth 3 (three) times a day as needed for muscle spasms. 60 tablet 1 01/06/2018 01/16/2018 Active dexamethasone (DECADRON) 1 m L, triamcinolone acetonide (KENALOG-40) 40 mg/mL 1 mL (2 sources) Start: 03-13-2020 End: 03-13-2020 dexamethasone (DECADRON) 1 m L, triamcinolone acetonide (KENALOG-40) 40 mg/mL 1 mL Start: 03-13-2020 End: 03-13-2020 dexamethasone (DECADRON) 1 m L, triamcinolone acetonide (KENALOG-40) 40 mg/mL 1 mL docusate sodium 50 mg / sennosides, nursing home 8.6 mg oral tablet (1 source) Start: 06-07-2020 End: 06-11-2020 take 1 tablet by mouth twice daily 2 tablet, Oral, 2 times daily, First dose on [facility] 06/07/20 at 1400 [] Hold for loose stools. Do Not Crush or Chew if administering orally due to bitter taste. May be crushed if given via tube. DULoxetine 30 mg delayed release oral capsule (20 sources) Serotonin and Norepinephrine Reuptake Inhibitor Start: 03-04-2022 End: 09-29-2022 take 1 capsule by mouth once daily DULoxetine (CYMBALTA) 30 mg capsule Indications: Fibromyalgia Take 1 capsule by mouth once daily. 30 capsule 1 03/04/2022 09/29/2022 Discontinued (Side Effects) Start: 07-11-2020 End: 03-04-2022 take 1 capsule by mouth once daily DULoxetine (CYMBALTA) 60 MG capsule Indications: Fibromyalgia Take 1 (one) capsule (60 mg total) by mouth daily . 90 capsule 1 06/03/2021 Active Start: 06-16-2019 End: 06-11-2020 take 1 capsule by mouth once daily DULoxetine (CYMBALTA) 60 MG capsule Indications: Fibromyalgia Take 1 (one) capsule (60 mg total) by mouth daily . 30 capsule 11 06/16/2019 Active Start: 04-17-2019 take 1 capsule by [facility] once daily DULoxetine (CYMBALTA) 60 MG capsule Indications: Fibromyalgia TAKE ONE CAPSULE BY MOUTH ONCE DAILY 30 capsule 11 04/17/2019 Active Start: 07-09-2018 End: 11-04-2018 take 1 capsule by mouth once daily DULoxetine (CYMBALTA) 60 MG capsule Indications: Fibromyalgia Take 1 (one) capsule (60 mg total) by mouth daily . 30 capsule 11 11/04/2018 Active Start: 03-09-2018 End: 03-09-2018 take 1 capsule by mouth once daily DULoxetine (CYMBALTA) 60 MG capsule TAKE ONE (1) CAPSULE BY MOUTH ONCE DAILY 30 capsule 6 03/09/2018 Active take 2 capsules by [facility] once daily duloxetine [address] Particles capsule DR Take 60 mg by mouth daily. 0 Active Comment on above: Take 1 capsule by [facility] once daily. flu vacc [id number] 6mos up(PF) (FLUZONE QUAD/FLULAVAL QUAD/FLUARIX QUAD) syringe 0.5 mL (1 source) Start: 06-07-20 End: 06-11-20 inject 0.5 mL by intramuscular injection every twenty-four hours as needed flu vacc [id number] 6mos up(PF) (FLUZONE QUAD/FLULAVAL QUAD/FLUARIX QUAD) syringe 0.5 mL fluconazole 150 mg oral tablet (13 sources) Azole Antifungal Start: 12-23-19 End: 03-23-20 fluconazole (DIFLUCAN) 150 mg tablet Indications: vulvovaginal candidiasis Take one by mouth at the first sign of a yeast infection, repeat with another tablet in 3 days 2 tablet 0 12/22/2022 03/23/2023 Discontinued Start: 02-29-2020 End: 03-07-2020 take 1 tablet by mouth once daily fluconazole (DIFLUCAN) 100 MG tablet Indications: Yeast infection of the skin Take 1 (one) tablet (100 mg total) by mouth daily for 7 days . 7 tablet 0 02/29/2020 03/07/2020 Active Comment on above: Take one by mouth at the first sign of a yeast infection, repeat with another tablet in 3 days fluorodeoxyglucose (FDG) injection 10-20 millicurie (1 source) Start: 0 End: 0 fluorodeoxyglucose (FDG) injection 10-20 millicurie 50 ml glucose 500 mg/ml prefilled syringe (2 sources) Start: 0 End: 0 dextrose 50 % in water (D50W) syringe 12.5 g Start: 06-09-2020 End: 06-09-2020 dextrose 50 % in water (D50W ) syringe - ADS Override Pull 1 ml HYDROmorphone hydrochloride 1 mg/ml injection (2 sources) Opioid Agonist Start: 06-07-2020 End: 06-11-2020 take 0.25-0.5 mg intravenous route every three hours as needed 0.25-0.5 mg, Intravenous, Every 3 hours PRN, moderate to severe pain, Starting [facility] 06/07/20 at 1146 [] Initiate with 0.25 mg IV every 3 hours prn moderate to severe pain. [] For unrelieved pain, may repeat 0.25 mg IV dose within 30 minutes of initial dose. [] If pain is RELIEVED after repeat dose, change to 0.5 mg IV every 3 hours prn moderate to severe pain. [] If pain is UNrelieved after repeat dose, or patient requires dose reduction, call physician. [] May use IV for breakthrough pain or if unable to tolerate oral route. Start: 06-07-2020 End: 06-07-2020 0.5 mg, Intravenous, Every 5 min PRN, Pain, Starting [facility] 06/07/20 at 1013, For 6 doses, PACU (only) [] Give if fentanyl not effective or not ordered. [] Do not give more than 3 mg total. iopamidoL (ISOVUE-370) 76 % injection 75 mL (1 source) Start: 05-18-2020 End: 05-18-2020 iopamidoL (ISOVUE-370) 76 % injection 75 mL ammonium lactate 120 mg/ml topical lotion (20 sources) Start: 12-15-2017 End: 11-04-2018 ammonium lactate (LAC-HYDRIN) 12 % lotion lidocaine hydrochloride 20 mg/ml mucous membrane topical solution (20 sources) Antiarrhythmic, Amide Local Anesthetic Start: 09-30-2020 End: 06-03-2021 lidocaine (lidocaine) 2 % Soln Indications: Chronic dental pain Applied on teeth were swish and spit every few hours may use cotton ball also for pain . 120 mL 0 11/21/2020 06/03/2021 Discontinued (Therapy completed) Start: 12-10-2018 End: 12-17-2018 apply 1 dose transdermal route once daily, then apply 1 dose transdermal route every twelve hours lidocaine (LIDODERM) 5 % patch Place 1 (one) patch on the skin daily Remove & Discard patch within 12 hours or as directed by MD for 7 days . 7 patch 0 12/10/2018 12/17/2018 Active linagliptin 5 mg oral tablet (7 sources) Dipeptidyl Peptidase 4 Inhibitor Start: 11-26-2017 End: 12-16-2017 take 1 tablet by mouth once daily linagliptin 5 mg Tab Indications: Uncontrolled type 2 diabetes mellitus with hyperglycemia, with long-term current use of insulin (HCC) Take 1 (one) tablet (5 mg total) by mouth daily. 30 tablet 6 11/26/2017 12/16/2017 Discontinued 3 ml liraglutide 6 mg/ml pen injector (20 sources) GLP-1 Receptor Agonist Start: 08-29-2022 End: 09-29-2022 inject 1.8 mg by subcutaneous injection once daily liraglutide (VICTOZA) 0.6 mg/ 0.1 ml subcutaneous pen injector Indications: Type 2 diabetes mellitus with peripheral neuropathy (HCC) Inject 1.8 mg subcutaneously once daily. 3 Each 2 08/29/2022 09/29/2022 Discontinued (Course of therapy completed) Start: 07-21-2022 End: 08-29-2022 inject 1.2 mg by subcutaneous injection once daily liraglutide (VICTOZA) 0.6 mg/ 0.1 ml subcutaneous pen injector Indications: Type 2 diabetes mellitus with peripheral neuropathy (HCC) Inject 1.2 mg subcutaneously once daily. 2 Each 2 07/21/2022 08/29/2022 Discontinued Start: 11-07-2020 End: 07-19-2022 inject 1.2 mg by subcutaneous injection once daily liraglutide (VICTOZA) 0.6 mg/ 0.1 ml subcutaneous pen injector Indications: Type 2 diabetes mellitus with peripheral neuropathy (HCC) Inject 1.2 mg subcutaneously once daily. 2 Pen 2 03/18/2022 07/19/2022 Discontinued Start: 07-09-2020 End: 11-07-2020 liraglutide (Victoza 2-Puma) 0.6 mg/0.1 mL (18 mg/3 mL) Pen Inject 1.8 mg under the skin once daily . 6 mL 5 07/09/2020 11/07/2020 Discontinued Start: 01-09-2020 End: 07-09-2020 Victoza 2-Puma 0.6 mg/0.1 mL (18 mg/3 mL) Pen INJECT 1.2 MG SUBCUTANEOUSLY DAILY 6 mL 5 01/09/2020 07/09/2020 Discontinued Start: 08-12-2019 liraglutide (V ictoza 2-Puma) 0.6 mg/0.1 mL (18 mg/3 mL) Pen Inject 1.2 mg under the skin daily . 6 mL 5 08/12/2019 Active Start: 07-20-2018 End: 12-28-2018 liraglutide (VICTOZA 2-PUMA) 0.6 mg/0.1 mL (18 mg/3 mL) Pen Inject 1.2 mg under the skin daily . 6 mL 5 12/28/2018 Active Comment on above: Inject 1.2 mg subcut aneously once daily. Inject 1.8 mg subcut aneously once daily. 24 hr loratadine 10 mg / pseudoephedrine sulfate 240 mg extended release oral tablet (6 sources) alpha-Adrenergic Agonist Start: 023 End: 023 take 1 tablet by mouth once daily loratadine-pseudoep hedrine ER (CLARITIN-D 24 HOUR) 10-240 mg Tb24 Indications: Rhinorrhea Take 1 tablet by mouth once daily. 14 tablet 0 01/19/2023 03/23/2023 Discontinued Comment on above: Take 1 tablet by rach th once daily. metoclopramide 10 mg oral tablet (20 sources) Dopamine-2 Receptor Antagonist Start: 020 End: take 10 mg by mouth three times daily before mealtime 10 mg, Oral, 3 times daily before meals, First dose on [facility] 06/07/20 at 1630 Start: 01-25-2020 End: 01-24-2021 take 1 tablet by mouth four times daily at mealtime metoclopramide (REGLAN) 10 MG tablet Indications: Intractable vomiting with nausea, unspecified vomiting type TAKE ONE TABLET BY MOUTH FOUR TIMES DAILY WITH MEALS AND EVERY NIGHT 120 tablet 2 11/07/2020 11/21/2020 Discontinued (Therapy completed) naloxone (NARCAN) injection 0.1 mg (1 source) Start: 06-07-2020 End: 06-11-2020 naloxone (NARCAN) injection 0.1 mg naproxen 250 mg oral tablet (20 sources) Nonsteroidal Anti-inflammatory Drug Start: 09-30-2020 End: 09-30-2020 naproxen (NAPROSYN) tablet 500 mg End: 07-09-2018 take 1 tablet by mouth once daily as needed naproxen (NAPROSYN) 500 MG tablet Take 500 mg by mouth daily as needed. 0 07/09/2018 Discontinued (Therapy completed) NOVOLOG U-100 INSULIN ASPART SUBQ (2 sources) End: 06-14-2020 inject 26 [IU] by subcutaneous injection three times daily before mealtime NOVOLOG U-100 INSULIN ASPART SUBQ Inject 26 Units under the skin 3 (three) times a day before meals . 0 06/14/2020 Discontinued (Reorder) nystatin [id number] unt/ml topical cream (20 sources) Polyene Antifungal Start: 12-22-2022 End: 01-21-2023 nystatin (MYCOSTATIN) cream Indications: Vaginal yeast infection Apply to affected area twice daily. 30 g 1 12/22/2022 01/21/2023 Start: 02-29-2020 End: 02-28-2021 nystatin (MYCOSTATIN) ointme nt Indications: Yeast infection of the skin Apply topically 2 (two) times a day . 45 g 1 02/29/2020 02/28/2021 Active Comment on above: Apply to affected ar ea twice daily. 2 ml ondansetron 2 mg/ml injection (3 sources) Serotonin-3 Receptor Antagonist Start: 0 End: 0 take 4 mg intravenous route every six hours as needed 4 mg, Intravenous, Every 6 hours PRN, nausea, vomiting, Starting [facility] 06/07/20 at 1146 Start: 01-12-2020 End: 01-12-2020 ondansetron (ZOFRAN) injecti on 4 mg Start: 04-19-2019 End: 04-19-2019 ondansetron (ZOFRAN) injecti on 4 mg 2 ml orphenadrine citrate 30 mg/ml injection (1 source) Muscle Relaxant Start: 12-10-2018 End: 12-10-2018 orphenadrine (NORFLEX) injection 60 mg OZEMPIC 0.25 mg or 0.5 mg (2 mg/3 mL) pen (14 sources) Start: 03-30-2023 inject 0.5 mg by subcutaneous injection every week OZEMPIC 0.25 mg or 0.5 mg (2 mg/3 mL) pen Indications: Type 2 diabetes mellitus with peripheral neuropathy (HCC) INJECT 0.5 MG. SUBCUTANEOUSLY ONCE A WEEK 9 mL 1 03/30/2023 Active Comment on above: INJECT 0.5 MG. SUBCU TANEOUSLY ONCE A WEEK OZEMPIC 1 mg/dose (4 mg/3 mL) pen (20 sources) Start: 01-26-2025 End: 02-28-2025 inject 1 mg by subcutaneous injection every week OZEMPIC 1 mg/dose (4 mg/3 mL) pen Indications: Type 2 diabetes mellitus with peripheral neuropathy (HCC) Inject 1 mg subcutaneously one time a week. 3 mL 01/26/2025 02/28/2025 Discontinued Start: 01-26-2025 inject 1 mg by subcu taneous injection every week OZEMPIC 1 mg/dose (4 mg/3 mL) pen Indications: Type 2 diabetes mellitus with peripheral neuropathy (HCC) Inject 1 mg subcutaneously one time a week. 3 mL 01/26/2025 Active Start: 12-30-2023 inject 1 mg by subcu taneous injection every week OZEMPIC 1 mg/dose (4 mg/3 mL) pen INJECT THE CONTENTS OF 1 PEN UNDER THE SKIN ONCE WEEKLY 12/30/2023 Active Start: 12-30-2023 inject 1 mg by subcu taneous injection every week OZEMPIC 1 mg/dose (4 mg/3 mL) pen INJECT THE CONTENTS OF 1 PEN UNDER THE SKIN ONCE WEEKLY 0 12/30/2023 Suspended Start: 12-30-2023 inject 1 mg by subcu taneous injection every week OZEMPIC 1 mg/dose (4 mg/3 mL) pen INJECT THE CONTENTS OF 1 PEN UNDER THE SKIN ONCE WEEKLY 0 12/30/2023 Active microencapsulated potassium chloride 20 meq extended release oral tablet (1 source) Start: 04-19-2019 End: 04-19-2019 potassium chloride SA (K-DUR,KLOR-CON) CR tablet 40 mEq 1000 ml potassium chloride 0.02 meq/ml / sodium chloride 9 mg/ml injection (1 source) Start: 06-07-2020 End: 06-11-2020 take 75 mL intravenous route every hour 75 mL/hr, Intravenous, Continuous, Starting [facility] 06/07/20 at 1245 regular insulin, human 100 unt/ml injectable solution (1 source) Insulin Start: 06-07-2020 End: 06-07-2020 insulin regular (HumuLIN R, NovoLIN R) injection 10 Units Start: 06-07-2020 End: 06-07-2020 insulin regular (HumuLIN R, NovoLIN R) injection 10 Units 0.25 mg, 0.5 mg dose 1.5 ml semaglutide 1.34 mg/ml pen injector (20 sources) Start: 09-29-2022 End: 03-30-2023 semaglutide (OZEMPIC) 0.25 mg or 0.5 mg(2 mg/1.5 mL) pen Indications: Type 2 diabetes mellitus with peripheral neuropathy (HCC) Inject 0.5 mg subcutaneously one time a week. 1 Each 2 01/16/2023 03/30/2023 Discontinued Comment on above: Inject 0.5 mg subcutaneously one time a week. semaglutide 0.5 mg/0.1 mL syringe (1 source) Start: 02-28-2025 End: 02-28-2025 inject 0.1 mL by subcutaneous injection every week semaglutide 0.5 mg/0.1 mL syringe Indications: Type 2 diabetes mellitus with peripheral neuropathy (HCC) Inject 0.1 mL subcutaneously one time a week. 0.4 mL 2 02/28/2025 02/28/2025 Discontinued SEMGLEE,INSULIN GLARG-YFGN,PEN 100 unit/mL (3 mL) insulin pen (1 source) Start: 10-30-2022 End: 12-22-2022 SEMGLEE,INSULIN GLARG-YFGN,PEN 100 unit/mL (3 mL) insulin pen Inject 60 Units subcutaneously daily at bedtime. 0 10/30/2022 12/22/2022 Discontinued (Side Effects) Comment on above: Inject 60 Units subcutaneously daily at bedtime. 1000 ml sodium chloride 9 mg/ml injection (5 sources) Start: 11-01-2020 End: 11-02-2020 sodium chloride 0.9% (NS) bolus 500 mL Start: 11-01-2020 End: 11-02-2020 sodium chloride (PF) (NS) fl ush 5 mL Start: 06-07-2020 End: 06-07-2020 sodium chloride 0.9% (NS) Start: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 in either breast. There are no significant interval changes. IMPRESSION IMPRESSION: There is no mammographic evidence of malignancy in either breast. Routine screening mammogram is recommended. Annual mammogram will be due in 1 year. BI-RADS Category 1: Negative RISK: Based on the Tyrer-Cuzick (TC) risk assessment model, this patient has a 6.8% lifetime risk of developing breast cancer, meaning they are at average risk for developing breast cancer. However, this is only an estimate based on available history provided on the patient's questionnaire. We encourage all patients to talk with their providers about these results, further recommendations for managing breast health, and appropriate supplemental screening options if the patient has dense breast tissue. Interpreting Radiologist: Kayleigh Marsh M.D. Electronically signed on: 01/04/2025 Vallez Filter Operator: JULIANE Transcribe Date/Time: Jan 03 2025 2:43P Dictated by: KAYLEIGH MARSH MD This examination was interpreted and the report reviewed and electronically signed by: KAYLEIGH MARSH MD on Jan 04 2025 1:53AM EST [facility] DBT Breast - bilateral scree ningOrdered By: [facility] Provider on 01-04-2025 [facility] DBT Breast - bilateral scree ningon 01-03-2025 Radiology Study observation (narrative) [facility] FRED SCREENING W TOMOon 01-03 FRED SCREENING W ALFREDO * * *Final Report* * * DATE OF EXAM: Jan 03 2025 3:09PM [facility] 0582 - FRED SCREENING W ALFREDO / PROCEDURE REASON: Encounter for screening mammogram for breast cancer * * * * Physician Interpretation * * * * RESULT: [facility] [address] [place] [address] #[id number] - [facility] SCREENING W ALFREDO HISTORY: 59 year-old patient seen for screening. Patient is asymptomatic in both breasts. Patient states no personal history of breast cancer. COMPARISON STUDIES: The present examination has been compared to prior imaging studies dated 12/31/2021 (mammogram), 04/16/2023 (mammogram) and 04/16/2023 (ultrasound). MAMMOGRAM TECHNIQUE: The study was acquired using full field digital technology and interpreted from soft copy. Digital Breast Tomosynthesis (DBT) images were obtained and used to assist in the interpretation of this examination. MAMMOGRAM FINDINGS: There are scattered areas of fibroglandular density. No suspicious masses, calcifications or other abnormalities are seen in either breast. There are no significant interval changes. IMPRESSION: There is no mammographic evidence of malignancy in either breast. Routine screening mammogram is recommended. Annual mammogram will be due in 1 year. BI-RADS Category 1: Negative RISK: Based on the Tyrer-Cuzick (TC) risk assessment model, this patient has a 6.8% lifetime risk of developing breast cancer, meaning they are at average risk for developing breast cancer. However, this is only an estimate based on available history provided on the patient's questionnaire. We encourage all patients to talk with their providers about these results, further recommendations for managing breast health, and appropriate supplemental screening options if the patient has dense breast tissue. Interpreting Radiologist: Kayleigh Marsh M.D. Electronically signed on: 01/04/2025 Val[facility] Filter Operator: JULIANE Transcribe Date/Time: Jan 03 2025 2:43P Dictated by: KAYLEIGH MARSH MD This examination was interpreted and the report reviewed and electronically signed by: KAYLEIGH MARSH MD on Jan 04 2025 1:53AM EST [id number] Normal [facility] CNOVon 08-30-2024 CNOV Office Visit (AGJAN CROWLEY) JUANA HANDY V ([id number]) 1965 F Date Time Provider Department 08/30/24 2:00 PM ARIANNA ROSALES During your visit today, we recorded the following information about you: Temperature Pulse Respiration Blood pressure 97.3 degrees 96/minute 16/minute 122/72 Weight Height 101.6 kg 1.626 m Arianna Rosales APRN.CORPORATE CONSULTANT 09/11/2024 7:30 PM Signed CHIEF COMPLAINT: Juana Handy is a 59 year old female who presents for 6 month follow up for HTN. I reviewed past medical, surgical, social, and family histories today and updated chart. Allergies, chronic medications, and supplements were also reviewed. She does not check her BP at home. Denies any CP, SOB, dizziness, palpitations. Since her last OV in December, she had her third right toe removed due to osteomyelitis most likely secondary to uncontrolled DM and neuropathy She is still following with podiatry She hasn't seen Dr. Valadez in [facility] for her DM BS 178 currently Hasn't eaten today BS 278 this morning fasting but still gave herself her meal time insulin BS dropped within 5-10 minutes to 250 She is taking 50 units every time when she eats BS has dropped to 56 before, about 30 minutes after she took her insulin BS dropped from 150 to 123 while in office Last shot was at 10:30 this morning but hasn't eaten anything OV 01/05/24: Juana Handy is a 58 year old female who presents for F/U HTN 3 Month. I reviewed past medical, surgical, social, and family histories today and updated chart. Allergies, chronic medications, and supplements were also reviewed. Right middle toe still sore on the tip of her toe. It is no longer open but it is still red and swollen. Completed course of Keflex in September but hasn't follow up since there. Painful. No fevers. Diabetic shoes ordered from podiatry. Order faxed to [facility] to [place]. She does not check her BP regularly at home. Denies any CP, SOB, dizziness, palpitations. She follows with Endo for her diabetes (Dr. Abraham Valadez in [place]) but she is confused about her insulin directions. She has different directions on her paperwork from what is on the medication from the pharmacy. PAST MEDICAL HISTORY Diagnosis Date Diabetes mellitus (HCC) Essential hypertension Fibromyalgia High cholesterol PAST SURGICAL HISTORY Procedure Laterality Date BACK SURGERY HX Social History Tobacco Use Smoking status: Never Smokeless tobacco: Never Vaping Use Vaping status: Never Used Substance Use Topics Alcohol use: Never Drug use: Never ALLERGIES Allergen Reactions Lavender (Lavandula* Rash Metformin GI Upset Latex Rash Family History Problem Relation Age of Onset Diabetes Brother Current Outpatient Medications Medication Sig Dispense Refill DEXCOM G7 SENSOR chris as directed. LANTUS SOLOSTAR U-100 INSULIN 100 unit/mL (3 mL) INJECT 50 UNITS SUBCUTANEOUSLY AT BEDTIME gabapentin (NEURONTIN) 600 mg tablet Take 1 tablet by mouth daily at bedtime for 90 days. 30 tablet 2 lisinopril (ZESTRIL) 20 mg tablet TAKE 1 TABLET BY MOUTH ONCE DAILY 90 tablet 1 insulin lispro (HUMALOG KWIKPEN INSULIN) 100 unit/mL Inject 35 Units subcutaneously three times a day before meals. If BS over 200 take 30 units. If BS is under 200 but greater than 150 take 25 units. OZEMPIC 1 mg/dose (4 mg/3 mL) pen INJECT THE CONTENTS OF 1 PEN UNDER THE SKIN ONCE WEEKLY atorvastatin (LIPITOR) 40 mg tablet Take 1 tablet by mouth once daily. [address] (PROTONIX) 40 mg tablet Take 1 tablet by mouth once daily. 90 tablet 1 Lancets (ACCU-CHEK FASTCLIX LANCET DRUM) lancets USE 1 LANCET TO CHECK BLOOD SUGAR THREE TIMES DAILY 120 Each 2 albuterol HFA (PROAIR HFA) 90 mcg/actuation inhaler Inhale 2 Puffs as instructed every 4 hours as needed for wheezing/shortness of breath. 1 Each 2 CPAP/BIPAP/OTHER Type .CPAPSettings into a note to see current settings/supplies/DME information. 1 Each 0 dapagliflozin propanediol (FARXIGA) 10 mg tablet Take 1 tablet by mouth daily with breakfast. 30 tablet 2 blood sugar diagnostic test strip Accu chek guide me test strips patient checks sugars 3 times daily Dx E11.42 100 Each 1 MULTI-VITAMIN ORAL Take 1 tablet by mouth once daily. Blood-Glucose Meter (ACCU-CHEK GUIDE ME GLUCOSE MTR) patient checks sugars 3 times daily Dx E11.42 1 Each 0 aspirin 81 mg chewable tablet Take 81 mg by mouth. metoprolol tartrate, short acting, (LOPRESSOR) 25 mg tablet Take 1 tablet by mouth two times a day. 180 tablet 1 No current facility-administered medications for this visit. Review of Systems Constitutional: Negative for chills, diaphoresis, fatigue, fever and unexpected weight change. HENT: Negative. Eyes: Negative. Respiratory: Positive for apnea. Negative for cough, chest tightness, shortness of breath and wheezing. Cardio (more content not included)... Normal [facility] CASE MANAGEMon 01-25-2024 CASE MANAGEM HNO ID: [id number] Author: EDITA CARDOSO RN Service: ? Author Type: Registered Nurse Type: Care Mgt Progress Note Filed: 01/25/2024 16:05 Note Text: CARE MANAGEMENT DISCHARGE NOTE SERVICE DATE: January 25, 2024 SERVICE TIME: 4:04 PM Admission Date: 01/20/2024 LOS: 5 days Discharge Arrangement Discharge Arrangement: Home with Self Care Caregiver Assessment Caregiver is ready, willing and able to meet the patient's needs as recommended by the inter-professional team: No Caregiver needed Transportation Arrangements Transportation Arrangements: Car- Friend to transport Handoff Communication: Handoff to: Primary Care Physician Primary Care Physician Name/Phone: Arianna Rosales APRN- [phone] Additional Information: Discharge order written for today. Met with the patient regarding her discharge home today. No skilled home going needs identified at discharge. SIGNATURE: Edita Cardoso RN PATIENT NAME: Juana Armentaon DATE: January 25, 2024 TIME: 4:04 PM CONTACT #: [phone] [facility] CASE MANAGEM HNO ID: [id number] Author: EDITA CARDOSO RN Service: ? Author Type: Registered Nurse Type: Marielena Mgt Progress Note Filed: 01/25/2024 15:42 Note Text: CARE MANAGEMENT PROGRESS NOTE SERVICE DATE: 01/25/2024 SERVICE TIME: 3:42 PM LOS: 5 days IMM Follow Up Copy Given: Yes Copy given to:: Patient Method: In Person SIGNATURE: Edita Cardoso RN PATIENT NAME: Juana Armentaon DATE: January 25, 2024 TIME: 3:42 PM PAGER/CONTACT #: [phone] [facility] CNDSon 01-25-2024 CNDS HNO ID: [id number] Author: LOUIE RIOS JR, MD Service: Hospital Medicine Author Type: Physician Type: Discharge Summary Filed: 01/25/2024 15:26 Note Text: DISCHARGE SUMMARY PATIENT NAME: Juana Handy Code Status: Full Code Highest Readmission Risk Score: 19 The 30 day readmissions risk score is derived from an internally validated risk model which evaluates patient level characteristics, utilization history, medication orders and lab results up until the day of discharge. Patients with a score of 40 or above are considered highest risk for readmission. Specific patient level drivers will be listed at the bottom of the summary. Admission Information Admission Information ADMIT DATE: 01/20/2024 DISCHARGE DATE: 01/25/2024 MY DOCTORS AND MEDICAL TEAM: My Main Hospital Doctor: Louie Rios Primary Care Provider: Arianna Rosales APRN.CNP My Medical Team Members: Treatment Team: Attending Provider: Louie Rios Jr., MD Consulting: Mike Holbrook DPM Consulting: Lavelle Mercado MD MY CONDITION AT DISCHARGE: Stable REASON I WAS IN THE HOSPITAL: Infection to the bone of right third toe SUMMARY OF WHAT HAPPENED WHILE I WAS IN THE HOSPITAL: You were admitted to the hospital on 01/20/24 due to an infection of your right third toe. An Xray showed the infection extended into the bone. You were started on IV antibiotics. Podiatry and Infectious Disease were consulted. On 01/21, you underwent an amputation of your right third toe. A culture was obtained after the surgery and did not show any continued infection. On 01/24, Infectious Disease recommended stopping the antibiotics. You were discharged to home on 01/25/24. Antibiotics were discontinued. Your recommended activity level was: weight-bearing as tolerated on your right foot. Oxycodone 5 mg up to four times a day as needed for severe pain for 3 days (#12) was ordered. Follow-up with Podiatry as they have arranged. Dressing changes per Podiatry instructions. Follow-up with your PCP in 1-2 weeks. OTHER PROBLEMS/DIAGNOSIS: Principal Problem: Osteomyelitis of right foot (HCC) Active Problems: Cellulitis of third toe of right foot Type 2 diabetes mellitus without complication, with long-term current use of insulin (HCC) Diabetic polyneuropathy associated with type 2 diabetes mellitus (HCC) Hypertension, essential Spinal stenosis of lumbar region without neurogenic claudication Paroxysmal nocturnal dyspnea Obesity, Class II, BMI 35-39.9 Full code status Resolved Problems: * No resolved hospital problems. * OPERATIONS PERFORMED WHILE IN THE HOSPITAL: 01/22/24 Right 3rd toe amputation at MTPJ; IANDD R foot deep multiple areas to level of bone, and sharp excisional nonselective debridement into level of bone IMPORTANT TEST/PROCEDURES: Echocardiogram TEST RESULTS NOT AVAILABLE AT THIS TIME: Pathology report from surgery Discharge Disposition Discharge Disposition: Home With Self Care Activity When You Leave the Hospital Limited to: Weight bearing as tolerated on right foot Diet Instructions Diabetic Low Cholesterol Low Salt Follow Up Appointments Follow-Up Appointment 1-2 weeks (appointment requested) When: In: Arianna Rosales, LOCOMOTIVE ENGINEER.[facility] [phone] [address] [facility] [address] PCP Requested Referral Follow-Up Appointment As arranged by Podiatry With: Podiatry When: In: Additional Provider to Provider Information: This is a 58 year old female, with a PMH of a Right Third Toe Wound, uncontrolled Type 2 DM, Diabetic Neuropathy, HTN, Hyperlipidemia, Fibromyalgia and DARLINE (on CPAP), who presented to the [place] ED on 01/20/24 with a chronic right third toe wound with a recent XR that showed osteomyelitis. She noted redness and tenderness of the toe, but no fever or drainage. On 01/05/24, XR of her Right Foot showed osteomyelitis of the distal phalanx of the third digit. Messages about these results were left for her and that is why she presented to the ED. In the ED, she was afebrile. K 4.4, Cr 0.6, WBC 7.4, Hgb 12.5. Procalcitonin < 0.06, CRP 0.7, Lactate 1.9. NT ProBNP 56. She received IV Rocephin and Vancomycin prior to transfer to [facility] for admission. IV Rocephin and Vanco were continued. Podiatry and ID were consulted. On 01/21, she underwent a right 3rd toe amputation at MTPJ, IANDD of right foot deep multiple areas to level of bone, and sharp excisional nonselective debridement into level of bone. She was continued on IV antibiotics and made weight bearing as tolerated on her right foot. Blood Cultures x2 were negative. By 01/25/24, the 01/21 Right Foot Post-Lavage Culture remained negative, showing only rare skin princess. ID recommended discontinuing antibiotics. On 01/24, Podiatry treated a small area of dehiscence at the incision with excisional debridement carried out of the wound with non selective sharp excisional debr (more content not included)... [facility] CONSULT PROGon 01-25-2024 CONSULT PROG HNO ID: [id number] Author: TORRES MONTES RPh Service: Pharmacy Author Type: Pharmacist Type: Consult Progress Note Filed: 01/25/2024 16:55 Note Text: PHARMACY VANCOMYCIN DOSING NOTE Patient Name: Juana Handy Admission Date: 01/20/2024 Date of Consult: 01/25/2024 Time of Consult: 4:51 PM Indication: Bone AND joint infection Goal Range: 15-20 mcg/mL RECOMMENDATIONS/PLAN: Pharmacy consulted for vancomycin dosing for Juana Handy, a 58 year old female. 1. Patient is currently ordered Vancomycin 1.5 g IV q12h. Today is day 6 of therapy. 2. The most recent vancomycin level was 10.5 mcg/mL drawn at 1542 on 01/24. This is a 10 hour level on the 6th day of therapy. 3. Will increase vancomycin to 1.75 g with a dosing interval of q12h. However, after chatting with RN, patient will not be receiving the 1700 dose on 01/24 due to no IV access. Patient is being discharged after 1900 today. 4. The next vancomycin level has been ordered for 01/26 (Completed) We will follow patient renal function, vancomycin levels and doses with you during the course of therapy. Additional recommendations will appear in follow up notes. If you have any questions, please contact inpatient pharmacy at [phone]. Age: [age] year old Allergies: ALLERGIES Allergen Reactions Lavender (Lavandula* Rash Metformin GI Upset Latex Rash Last 3 Encounter Wt Readings: Date: Wt: 01/20/2024 103.4 kg (227 lb 15.3 oz) 01/20/2024 100.7 kg (222 lb) 01/05/2024 100.2 kg (221 lb) Last 1 Encounter Ht Readings: Date: Ht: 01/20/2024 162.6 cm (5' 4") CrCl: 104.1 mL/min Temp (24hrs), Av.6 ?C (97.9 ?F), Min:36.4 ?C (97.5 ?F), Max:36.8 ?C (98.2 ?F) - Current Temp: 36.4 ?C (97.5 ?F) Labs BUN (mg/dL) Date Value 01/25/2024 16 01/24/2024 16 01/23/2024 17 Creatinine (mg/dL) Date Value 01/25/2024 0.69 01/24/2024 0.69 01/23/2024 0.77 WBC (k/uL) Date Value 01/21/2024 9.26 01/20/2024 7.36 01/20/2022 7.69 Vancomycin Levels: Vancomycin (ug/mL) Date/Time Value 01/25/2024 1542 10.5 01/23/2024 1611 15.4 [facility] CONSULT PROG HNO ID: [id number] Author: WADE FISHER DPM Service: Podiatry Author Type: Physician Type: Consult Progress Note Filed: 01/25/2024 11:14 Note Text: POD SURG SERVICE CONSULT PROGRESS NOTE SERVICE DATE: 01/25/2024 SERVICE TIME: 0830 Subjective INTERVAL HPI: Patient seen bedside resting comfortably. No new pedal complaints. SP R3 toe amputation Current Facility-Administered Medications Medication Dose Route Frequency NaCl 0.9% iv flush bag 20 mL INTRAVENOUS PRN atorvastatin 40 mg tab(s) (LIPITOR) 40 mg ORAL AT BEDTIME lisinopril 20 mg tab(s) (ZESTRIL) 20 mg ORAL DAILY metoprolol tartrate (short acting) 25 mg tab(s) (LOPRESSOR) 25 mg ORAL BID aspirin 81 mg chewable tab(s) 81 mg ORAL DAILY pantoprazole DR 40 mg tab(s) (PROTONIX) 40 mg ORAL DAILY vancomycin 1.5 g in NaCl 0.9% 250 mL (VANCOCIN) 0.015 g/kg/dose INTRAVENOUS q 12 HR albuterol 2.5 mg /3 mL (0.083 %) 1.25 mg (PROVENTIL) 1.25 mg INHALATION TID acetaminophen 1,000 mg tab(s) (TYLENOL) 1,000 mg ORAL q 8 H PRN oxyCODONE IR 5 mg tab(s) (ROXICODONE) 5 mg ORAL q 3 H PRN oxyCODONE IR 10 mg tab(s) (ROXICODONE) 10 mg ORAL q 3 H PRN dextrose 40 % 15 g 15 g ORAL PRN Or glucagon 1 mg injection 1 mg INTRAMUSCULAR PRN Or dextrose 10% iv bolus 12.5 g INTRAVENOUS PRN insulin lispro injection (rapid acting) (ADMElog) SUBCUTANEOUS w MEALS insulin lispro injection (rapid acting) (ADMElog) SUBCUTANEOUS AT BEDTIME vancomycin dosing and monitoring per pharmacy OTHER As Directed cefTRIAXone iv piggyback 1 g in dextrose (iso-osmotic) 50 mL (ROCEPHIN) 1 g INTRAVENOUS q 24 H gabapentin 600 mg tab(s) (NEURONTIN) 600 mg ORAL BID benzocaine-menthol 1 Lozenge (CEPACOL) 1 Lozenge MUCOUS MEMBRANE (TOPICAL MOUTH AND THROAT) q 2 H PRN insulin glargine 48 Units pen (long acting) 48 Units SUBCUTANEOUS AT BEDTIME [START ON 01/25/2024] insulin lispro 16 Units injection (rapid acting) (ADMElog) 16 Units SUBCUTANEOUS DAILY WITH BREAKFAST [START ON 01/25/2024] insulin lispro 16 Units injection (rapid acting) (ADMElog) 16 Units SUBCUTANEOUS DAILY wLUNCH insulin lispro 16 Units injection (rapid acting) (ADMElog) 16 Units SUBCUTANEOUS DAILY wDINNER Objective PHYSICAL EXAM: Physical Exam Performed: VASC: DP and PT pulses palpable B/L. CFT <3s NEURO: Diminished protective sensation B/L MSK: 5/5 MS to all 4 cardinal planes of motion B/L. Right 3rd toe amputaiton DERM: RT 3rd toe amputation incision well coapted, sutures mostly intact. Small area of dehiscence distal incision 0.4x0.1x0.1cm and post 0.2cm with normal post operative edema and erythema, appropriate drainage, no purulence BP 152/79 Pulse 62 Temp (Src) 98.2 (Oral) Resp 18 Ht 5' 4" (1.63m) Wt 230 lb 9.6 oz (104.6kg) SpO2 100% BMI 39.56 kg/(m2). O2 Therapy: Room Air DATA: Diagnostic tests reviewed for today's visit: Most recent labs and imaging results. CBC, Coags, BMP, Mg, Phos Recent Labs 01/25/24 0639 01/24/24 0732 01/23/24 0710 NA 139 138 137 K 4.2 3.9 4.1 CHLOR 104 105 101 CO2 26 24 26 BUN 16 16 17 CREAT 0.69 0.69 0.77 GLUC 192* 211* 209* CA 9.0 8.6 8.6 MG 1.9 1.9 1.9 P 4.0 3.5 3.7 Impression/Recommendations SP Right 3rd toe amputation (DOS 01/22/24) Post op wound dehiscence Skin ulcer right foot into SUBQ RT 3rd toe OM, distal phalanx Cellulitis RT 3rd toe Ulcer RT 3rd toe level of bone Hammertoe RT 3rd toe DMII with neuropathy Exam/Evaluation: 01/05/24 RT foot xray: OM of the distal phalanx of the third digit of the right foot. 01/20/24 Blood cultures: negative 01/22/24 OR RT 3rd toe Swab culture: preliminary, no organisms 01/22/24: OR RT 3rd toe pathology: pending 01/23/24 right foot XR: interval amputation third digit Wound Care: RT foot: betadine along incision, xeroform, 4x4 guaze, kerlix and tape. Nursing dressing orders in. Podiatry dressing today. Weightbearing as tolerated RIGHT foot Full weightbearing LEFT foot. Today treated small area of dehiscence at incision with excisional debridement carried out of the wound with non selective sharp excisional debridement past the dermis into SUBCUTANEOUS level with use of curette and 15 scalpel blade. Devitalized tissue removed. We then flushed out the wound with wound wash sterile saline. Patient tolerated debridement without numbing agent. Wound measurements are noted in the objective section. Reviewed XR left foot post op shows interval amputation of 3rd digit Progressing as expected. Patient doing well. Small area of dehissence at inciison, to watch, cont elevation to prevent swelling, discussed with patient. Cont abx per ID. Will continue to follow until discharge. Ok to DC from podiatry perspective. Follow OR cultures. DC instructions in. SIGNATURE: Wade Fisher DPM PATIENT NAME: Juana Handy DATE: January 25, 2024 TIME: PAGER: [facility] CONSULT PROG HNO ID: [id number] Author: LAVELLE MERCADO MD Service: Infectious Disease Author Type: Physician Type: Consult Progress Note Filed: 01/25/2024 19:34 Note Text: INFECTIOUS DISEASE PROGRESS NOTE Patient Name: Juana Handy INTERVAL HISTORY: No fevers. No leukocytosis No acute events Prox margin cx remain negative Resting on side of bed. No complaints Patient Active Hospital Problem List: Osteomyelitis (HCC) (01/20/2024) Obesity, Class II, BMI 35-39.9 (12/11/2021) Hypertension, essential (08/18/2018) Spinal stenosis of lumbar region without neurogenic claudication (11/04/2017) Type 2 diabetes mellitus without complication, with long-term current use of insulin ([facility]) (05/05/2018) Undiagnosed cardiac murmurs (01/20/2024) Paroxysmal nocturnal dyspnea (01/21/2024) Diabetic polyneuropathy associated with type 2 diabetes mellitus (HCC) (01/21/2024) Full code status (01/21/2024) ASSESSMENT: RT 3rd toe OM, distal phalanx Cellulitis RT 3rd toe Ulcer RT 3rd toe level of bone Hammertoe RT 3rd toe DMII with neuropathy RECOMMENDATIONS: S/P RT partial 3rd toe amputation Follow Proximal margin cx which are NGTD Continue ceftriaxone + vancomycin in house (D6) Monitor scr and Vanco T Follow blood cx: NGTD Monitor temps + counts Wound care Follow podiatry recs Discharge planning off abx as proximal cx remain negative MEDICATIONS: reviewed. Current Facility-Administered Medications Medication Dose Route Frequency NaCl 0.9% iv flush bag 20 mL INTRAVENOUS PRN atorvastatin 40 mg tab(s) (LIPITOR) 40 mg ORAL AT BEDTIME lisinopril 20 mg tab(s) (ZESTRIL) 20 mg ORAL DAILY metoprolol tartrate (short acting) 25 mg tab(s) (LOPRESSOR) 25 mg ORAL BID aspirin 81 mg chewable tab(s) 81 mg ORAL DAILY pantoprazole DR 40 mg tab(s) (PROTONIX) 40 mg ORAL DAILY vancomycin 1.5 g in NaCl 0.9% 250 mL (VANCOCIN) 0.015 g/kg/dose INTRAVENOUS q 12 HR albuterol 2.5 mg /3 mL (0.083 %) 1.25 mg (PROVENTIL) 1.25 mg INHALATION TID acetaminophen 1,000 mg tab(s) (TYLENOL) 1,000 mg ORAL q 8 H PRN oxyCODONE IR 5 mg tab(s) (ROXICODONE) 5 mg ORAL q 3 H PRN oxyCODONE IR 10 mg tab(s) (ROXICODONE) 10 mg ORAL q 3 H PRN dextrose 40 % 15 g 15 g ORAL PRN Or glucagon 1 mg injection 1 mg INTRAMUSCULAR PRN Or dextrose 10% iv bolus 12.5 g INTRAVENOUS PRN insulin lispro injection (rapid acting) (ADMElog) SUBCUTANEOUS w MEALS insulin lispro injection (rapid acting) (ADMElog) SUBCUTANEOUS AT BEDTIME vancomycin dosing and monitoring per pharmacy OTHER As Directed cefTRIAXone iv piggyback 1 g in dextrose (iso-osmotic) 50 mL (ROCEPHIN) 1 g INTRAVENOUS q 24 H gabapentin 600 mg tab(s) (NEURONTIN) 600 mg ORAL BID benzocaine-menthol 1 Lozenge (CEPACOL) 1 Lozenge MUCOUS MEMBRANE (TOPICAL MOUTH AND THROAT) q 2 H PRN insulin glargine 48 Units pen (long acting) 48 Units SUBCUTANEOUS AT BEDTIME insulin lispro 16 Units injection (rapid acting) (ADMElog) 16 Units SUBCUTANEOUS DAILY WITH BREAKFAST insulin lispro 16 Units injection (rapid acting) (ADMElog) 16 Units SUBCUTANEOUS DAILY wLUNCH insulin lispro 16 Units injection (rapid acting) (ADMElog) 16 Units SUBCUTANEOUS DAILY wDINNER PHYSICAL EXAM: Vital signs: BP 149/66 Pulse 61 Temp 36.6 ?C (97.9 ?F) (Oral) Resp 15 Ht 162.6 cm (5' 4") Wt 103.4 kg (227 lb 15.3 oz) SpO2 99% BMI 39.13 kg/m? Temp (24hrs), Av.8 ?C (98.2 ?F), Min:36.5 ?C (97.7 ?F), Max:37 ?C (98.6 ?F) General: alert, oriented, NAD Lungs: bilaterally clear to auscultation Heart: regular rate and rhythm Abdomen: soft, non tender, non distended, BS+ Extremities: no edema No rashes, R foot with post-op dressing C/D/I No joint inflammation Neck supple Lines ok No CVAT Lines, Drains, and Airways None Labs: Recent Labs 01/25/24 0639 01/24/24 0732 01/23/24 1611 01/23/24 0710 NA 139 138 -- 137 K 4.2 3.9 -- 4.1 CO2 26 24 -- 26 BUN 16 16 -- 17 CREAT 0.69 0.69 -- 0.77 VANCORA -- -- 15.4 -- Microbiology data: reviewed Imaging data: reviewed David Silvestre APRN-JOVANA [facility] [phone] January 25, 2024 9:20 AM I personally saw and evaluated the patient. I reviewed the QUALITY TECHNICIAN Hx, exam and MDM and I agree with the QUALITY TECHNICIAN assessment and plan unless otherwise addended above. Lavelle Mercado MD [phone] 01/25/2024 12:34 PM Normal [facility] Magnesium SerPl-mCncon 01-24 Magnesium [Mass/Vol] 1.9 mg/dL Normal 1.7-2.3 [facility] Comment on above: Order Comment: Speci men Type: BLOOD SPECIMENOrdering Facility: [facility] Address: [address] [place] [address] Performed By: #### 1 9123-9, 76012-7 ####SPICER LABORATORYCLIA [id number] [address] Renal function 2000 panelon 01-25-2024 Albumin [Mass/Vol] 3.7 g/dL Low 3.9-4.9 [facility] Comment on above: Order Comment: Speci men Type: BLOOD SPECIMENOrdering Facility: [facility] Address: [address] [place] [address] Performed By: #### 1 9123-9, 52888-8 ####SPICER LABORATORYCLIA [id number] [place] [id number] [facility] Anion gap [Moles/Vol] 9 mmol/L Normal 9-18 [facility] Comment on above: Order Comment: Speci men Type: BLOOD SPECIMENOrdering Facility: [facility] Address: [address] [place] [address] Performed By: #### 1 9123-9, 97266-1 ####SPICER LABORATORYCLIA [id number] [place] [address] [place] Calcium [Mass/Vol] 9.0 mg/dL Normal 8.5-10.2 [facility] Comment on above: Order Comment: Speci men Type: BLOOD SPECIMENOrdering Facility: [facility] Address: [address] [place] [address] Performed By: #### 1 9123-9, 83837-1 ####SPICER LABORATORYCLIA [id number] [place] [address] [place] Chloride [Moles/Vol] 104 mmol/L Normal 97-105 [facility] Comment on above: Order Comment: Speci men Type: BLOOD SPECIMENOrdering Facility: [facility] Address: [address] [place] [address] Performed By: #### 1 9123-9, 66994-3 ####SPICER LABORATORYCLIA [id number] [place] [address] [place] CO2 [Moles/Vol] 26 mmol/L Normal 22-30 [facility] Comment on above: Order Comment: Speci men Type: BLOOD SPECIMENOrdering Facility: [facility] Address: [address] [place] [address] Performed By: #### 1 9123-9, 43984-4 ####SPICER LABORATORYCLIA [id number] [place] [address] [place] Creatinine [Mass/Vol] 0.69 mg/dL Normal 0.58-0.96 [facility] Comment on above: Order Comment: Speci men Type: BLOOD SPECIMENOrdering Facility: [facility] Address: [address] [place] [address] Performed By: #### 1 9123-9, 75415-4 ####SPICER LABORATORYCLIA [id number] [address] Creatinine and Glomerular filtration rate.predicted panel (S/P/Bld) 101 mL/min/1.73m??? Normal >=60 [facility] Comment on above: Order Comment: Speci men Type: BLOOD SPECIMENOrdering Facility: [facility] Address: [address] [place] [address] Result Comment: Francoise mated Glomerular Filtration Rate (eGFR) is calculated using the 2020 CKD-EPI creatinine equation. This equation utilizes serum creatinine, sex, and age as parameters. The creatinine assay has traceable calibration to isotope dilution-mass spectrometry. Refer to KDIGO guidelines for clinical interpretation. In patients with unstable renal function, e.g. those with acute kidney injury, the eGFR may not accurately reflect actual GFR. Performed By: #### 1 9123-9, 37588-7 ####[facility] LABORATORYCLIA [id number] [place] [id number] [place] Glucose [Mass/Vol] 192 mg/dL High 74-99 [facility] Comment on above: Order Comment: Geetha cortes Type: BLOOD SPECIMENOrdering Facility: [facility] Address: [address] [place] [address] Result Comment: The [place] Diabetes [employer] (ADA) provides guidance for cutoff values for fasting glucose and random glucose. The ADA defines fasting as no caloric intake for at least 8 hours. Fasting plasma glucose results between 100 to 125 mg/dL indicate increased risk for diabetes (prediabetes). Fasting plasma glucose results greater than or equal to 126 mg/dL meet the criteria for diagnosis of diabetes. In the absence of unequivocal hyperglycemia, results should be confirmed by repeat testing. In a patient with classic symptoms of hyperglycemia or hyperglycemic crisis, random plasma glucose results greater than or equal to 200 mg/dL meet the criteria for diagnosis of diabetes. Reference: Standards of Medical Care in Diabetes 2016, [place] [employer]. Diabetes Care. 2016.39(Suppl 1). Performed By: #### 1 9123-9, 00725-1 ####[facility] LABORATORYCLIA [id number] [place] [address] [place] Phosphate [Mass/Vol] 4.0 mg/dL Normal 2.7-4.8 [facility] Comment on above: Order Comment: Geetha cortes Type: BLOOD SPECIMENOrdering Facility: [facility] Address: [address] [place] [id number] Performed By: #### 1 9123-9, 47388-0 ####[facility] LABORATORYCLIA [id number] [place] [address] [place] Potassium [Moles/Vol] 4.2 mmol/L Normal 3.7-5.1 [facility] Comment on above: Order Comment: Geetha cortes Type: BLOOD SPECIMENOrdering Facility: [facility] Address: [address] [place] [address] Performed By: #### 1 9123-9, 99018-4 ####SPICER LABORATORYCLIA [id number] [place] [address] [place] Sodium [Moles/Vol] 139 mmol/L Normal 136-144 [facility] Comment on above: Order Comment: Geetha cortes Type: BLOOD SPECIMENOrdering Facility: [facility] Address: [address] [place] [address] Performed By: #### 1 9123-9, 51900-5 ####SPICER LABORATORYCLIA [id number] [address] STATES [facility] Urea nitrogen [Mass/Vol] 16 mg/dL Normal 7-21 [facility] Comment on above: Order Comment: Nazi sophia Type: BLOOD SPECIMENOrdering Facility: [facility] Address: [address] [place] [address] Performed By: #### 1 9123-9, 86875-0 ####SPICER LABORATORYCLIA [id number] [address] Vancomycin Taylor SerPl-mCncon 01-25-2024 Vancomycin random [Mass/Vol] 10.5 ug/mL Normal 10.0-20.0 [facility] Comment on above: Order Comment: Geetha cortes Type: BLOOD SPECIMENOrdering Facility: [facility] Address: [address] [place] [address] Result Comment: Refe rence ranges and high/low indicator flags are provided as general guidelines only. The treating physician must determine appropriate target levels/dosing based on the specific clinical situation. Performed By: #### 4 091-5 ####SPICER LABORATORYCLIA [id number] [place] [address] [place] CONSULT PROGon 01-24-2024 CONSULT PROG HNO ID: [id number] Author: LAVELLE MERCADO MD Service: Infectious Disease Author Type: Physician Type: Consult Progress Note Filed: 01/24/2024 17:10 Note Text: INFECTIOUS DISEASE PROGRESS NOTE Patient Name: Juana Handy INTERVAL HISTORY: Remains afebrile and HD stable on RA. Patient sitting at bedside, NAD. Erythema improving. Denies any new complaints. Patient Active Hospital Problem List: Osteomyelitis (HCC) (01/20/2024) Obesity, Class II, BMI 35-39.9 (12/11/2021) Hypertension, essential (08/18/2018) Spinal stenosis of lumbar region without neurogenic claudication (11/04/2017) Type 2 diabetes mellitus without complication, with long-term current use of insulin ([facility]) (05/05/2018) Undiagnosed cardiac murmurs (01/20/2024) Paroxysmal nocturnal dyspnea (01/21/2024) Diabetic polyneuropathy associated with type 2 diabetes mellitus (HCC) (01/21/2024) Full code status (01/21/2024) ASSESSMENT: RT 3rd toe OM, distal phalanx Cellulitis RT 3rd toe Ulcer RT 3rd toe level of bone Hammertoe RT 3rd toe DMII with neuropathy RECOMMENDATIONS: S/P RT partial 3rd toe amputation Follow Proximal margin cx which are NGTD Continue ceftriaxone Continue Vancomycin Monitor scr and Vanco T Follow blood cx: NGTD Monitor temps + counts Wound care Follow podiatry recs Discharge planning off abx if proximal cx remain negative in am MEDICATIONS: reviewed. Current Facility-Administered Medications Medication Dose Route Frequency NaCl 0.9% iv flush bag 20 mL INTRAVENOUS PRN atorvastatin 40 mg tab(s) (LIPITOR) 40 mg ORAL AT BEDTIME lisinopril 20 mg tab(s) (ZESTRIL) 20 mg ORAL DAILY metoprolol tartrate (short acting) 25 mg tab(s) (LOPRESSOR) 25 mg ORAL BID aspirin 81 mg chewable tab(s) 81 mg ORAL DAILY pantoprazole DR 40 mg tab(s) (PROTONIX) 40 mg ORAL DAILY vancomycin 1.5 g in NaCl 0.9% 250 mL (VANCOCIN) 0.015 g/kg/dose INTRAVENOUS q 12 HR albuterol 2.5 mg /3 mL (0.083 %) 1.25 mg (PROVENTIL) 1.25 mg INHALATION TID acetaminophen 1,000 mg tab(s) (TYLENOL) 1,000 mg ORAL q 8 H PRN oxyCODONE IR 5 mg tab(s) (ROXICODONE) 5 mg ORAL q 3 H PRN oxyCODONE IR 10 mg tab(s) (ROXICODONE) 10 mg ORAL q 3 H PRN dextrose 40 % 15 g 15 g ORAL PRN Or glucagon 1 mg injection 1 mg INTRAMUSCULAR PRN Or dextrose 10% iv bolus 12.5 g INTRAVENOUS PRN insulin glargine 42 Units pen (long acting) 42 Units SUBCUTANEOUS AT BEDTIME insulin lispro 14 Units injection (rapid acting) (ADMElog) 14 Units SUBCUTANEOUS DAILY WITH BREAKFAST insulin lispro 14 Units injection (rapid acting) (ADMElog) 14 Units SUBCUTANEOUS DAILY wLUNCH insulin lispro 14 Units injection (rapid acting) (ADMElog) 14 Units SUBCUTANEOUS DAILY wDINNER insulin lispro injection (rapid acting) (ADMElog) SUBCUTANEOUS w MEALS insulin lispro injection (rapid acting) (ADMElog) SUBCUTANEOUS AT BEDTIME vancomycin dosing and monitoring per pharmacy OTHER As Directed sodium chloride 0.9 % (flush) 2-10 mL (BD POSIFLUSH) 2-10 mL INTRAVENOUS DIRECTED PRN And perflutren lipid microspheres 1.1 mg/mL 1.3 mL injection (DEFINITY) 1.3 mL INTRAVENOUS DIRECTED PRN cefTRIAXone iv piggyback 1 g in dextrose (iso-osmotic) 50 mL (ROCEPHIN) 1 g INTRAVENOUS q 24 H gabapentin 600 mg tab(s) (NEURONTIN) 600 mg ORAL BID benzocaine-menthol 1 Lozenge (CEPACOL) 1 Lozenge MUCOUS MEMBRANE (TOPICAL MOUTH AND THROAT) q 2 H PRN PHYSICAL EXAM: Vital signs: BP 155/83 Pulse 76 Temp 36.9 ?C (98.4 ?F) (Oral) Resp 17 Ht 162.6 cm (5' 4") Wt 104.6 kg (230 lb 9.6 oz) SpO2 98% BMI 39.58 kg/m? Temp (24hrs), Av.8 ?C (98.2 ?F), Min:36.5 ?C (97.7 ?F), Max:37 ?C (98.6 ?F) General: alert, oriented, NAD Lungs: bilaterally clear to auscultation Heart: regular rate and rhythm Abdomen: soft, non tender, non distended, BS+ Extremities: no edema No rashes, R foot with post-op dressing C/D/I No joint inflammation Neck supple Lines ok No CVAT Lines, Drains, and Airways Line Duration Peripheral 01/24/24 0017 [place] Short Right Forearm 22 Gauge <1 day Labs: Recent Labs 01/24/24 0732 01/23/24 1611 01/23/24 0710 01/22/24 1324 NA 138 -- 137 140 K 3.9 -- 4.1 3.8 CO2 24 -- 26 29 BUN 16 -- 17 18 CREAT 0.69 -- 0.77 0.77 VANCORA -- 15.4 -- -- Microbiology data: reviewed Imaging data: reviewed Celso Giraldo APRN-JOVANA [facility] [phone] January 23, 2024 3:06 PM I personally saw and evaluated the patient. I reviewed the QUALITY TECHNICIAN Hx, exam and MDM and I agree with the QUALITY TECHNICIAN assessment and plan unless otherwise addended above. Lavelle Mercado MD [phone] 01/24/2024 5:10 PM [facility] CONSULT PROG HNO ID: [id number] Author: DAMIAN OJEDA [facility] Service: Pharmacy Author Type: Pharmacist Type: Consult Progress Note Filed: 01/24/2024 10:18 Note Text: PHARMACY VANCOMYCIN DOSING NOTE Patient Name: Juana Handy Admission Date: 01/20/2024 Date of Consult: 01/24/2024 Time of Consult: 10:11 AM Indication: Bone AND joint infection Goal Range: 15-20 mcg/mL RECOMMENDATIONS/PLAN: Pharmacy consulted for vancomycin dosing for Juana Handy, a 58 year old female. 1. Patient is currently ordered Vancomycin 1.5 g IV q12h. Today is day 5 of therapy. Patient received first dose of vanco 1.5gm at [place] [facility] on 01/20/24 2. The most recent vancomycin level was drawn and addressed on 01/23/24. 3. The present dose of vancomycin is the recommended dosage for this patient at this time. Continue therapy as prescribed. Patient missed one dose on 01/22/24 due to a procedure so will get trough slightly earlier to ensure level stays therapeutic. 4. The next vancomycin level has been ordered for 01/24 (Completed) We will follow patient renal function, vancomycin levels and doses with you during the course of therapy. Additional recommendations will appear in follow up notes. If you have any questions, please contact pharmacy at [phone]. Age: [age] year old Allergies: ALLERGIES Allergen Reactions Lavender (Lavandula* Rash Metformin GI Upset Latex Rash Last 3 Encounter Wt Readings: Date: Wt: 01/20/2024 104.6 kg (230 lb 9.6 oz) 01/20/2024 100.7 kg (222 lb) 01/05/2024 100.2 kg (221 lb) Last 1 Encounter Ht Readings: Date: Ht: 01/20/2024 162.6 cm (5' 4") CrCl: 104.8 mL/min Temp (24hrs), Av ?C (98.6 ?F), Min:36.8 ?C (98.2 ?F), Max:37.4 ?C (99.3 ?F) - Current Temp: 36.9 ?C (98.4 ?F) Labs BUN (mg/dL) Date Value 01/24/2024 16 01/23/2024 17 01/22/2024 18 Creatinine (mg/dL) Date Value 01/24/2024 0.69 01/23/2024 0.77 01/22/2024 0.77 WBC (k/uL) Date Value 01/21/2024 9.26 01/20/2024 7.36 01/20/2022 7.69 Vancomycin Levels: Vancomycin (ug/mL) Date/Time Value 01/23/2024 1611 15.4 Damian Ojeda [facility] CONSULT PROG HNO ID: [id number] Author: WILLI STANLEY DPM Service: Podiatry Author Type: Physician Type: Consult Progress Note Filed: 01/24/2024 12:13 Note Text: PODIATRY SURGICAL SERVICE CONSULT PROGRESS NOTE SERVICE DATE: 01/24/2024 SERVICE TIME: 9:17 AM Subjective INTERVAL HPI: Patient seen bedside resting comfortably. No new pedal complaints. SP R3 toe amputation Current Facility-Administered Medications Medication Dose Route Frequency NaCl 0.9% iv flush bag 20 mL INTRAVENOUS PRN atorvastatin 40 mg tab(s) (LIPITOR) 40 mg ORAL AT BEDTIME lisinopril 20 mg tab(s) (ZESTRIL) 20 mg ORAL DAILY metoprolol tartrate (short acting) 25 mg tab(s) (LOPRESSOR) 25 mg ORAL BID aspirin 81 mg chewable tab(s) 81 mg ORAL DAILY pantoprazole DR 40 mg tab(s) (PROTONIX) 40 mg ORAL DAILY vancomycin 1.5 g in NaCl 0.9% 250 mL (VANCOCIN) 0.015 g/kg/dose INTRAVENOUS q 12 HR albuterol 2.5 mg /3 mL (0.083 %) 1.25 mg (PROVENTIL) 1.25 mg INHALATION TID acetaminophen 1,000 mg tab(s) (TYLENOL) 1,000 mg ORAL q 8 H PRN oxyCODONE IR 5 mg tab(s) (ROXICODONE) 5 mg ORAL q 3 H PRN oxyCODONE IR 10 mg tab(s) (ROXICODONE) 10 mg ORAL q 3 H PRN dextrose 40 % 15 g 15 g ORAL PRN Or glucagon 1 mg injection 1 mg INTRAMUSCULAR PRN Or dextrose 10% iv bolus 12.5 g INTRAVENOUS PRN insulin glargine 42 Units pen (long acting) 42 Units SUBCUTANEOUS AT BEDTIME insulin lispro 14 Units injection (rapid acting) (ADMElog) 14 Units SUBCUTANEOUS DAILY WITH BREAKFAST insulin lispro 14 Units injection (rapid acting) (ADMElog) 14 Units SUBCUTANEOUS DAILY wLUNCH insulin lispro 14 Units injection (rapid acting) (ADMElog) 14 Units SUBCUTANEOUS DAILY wDINNER insulin lispro injection (rapid acting) (ADMElog) SUBCUTANEOUS w MEALS insulin lispro injection (rapid acting) (ADMElog) SUBCUTANEOUS AT BEDTIME vancomycin dosing and monitoring per pharmacy OTHER As Directed sodium chloride 0.9 % (flush) 2-10 mL (BD POSIFLUSH) 2-10 mL INTRAVENOUS DIRECTED PRN And perflutren lipid microspheres 1.1 mg/mL 1.3 mL injection (DEFINITY) 1.3 mL INTRAVENOUS DIRECTED PRN cefTRIAXone iv piggyback 1 g in dextrose (iso-osmotic) 50 mL (ROCEPHIN) 1 g INTRAVENOUS q 24 H gabapentin 600 mg tab(s) (NEURONTIN) 600 mg ORAL BID benzocaine-menthol 1 Lozenge (CEPACOL) 1 Lozenge MUCOUS MEMBRANE (TOPICAL MOUTH AND THROAT) q 2 H PRN Objective PHYSICAL EXAM: Physical Exam Performed: GENERAL: Alert, no distress, cooperative VASC: DP and PT pulses palpable B/L. CFT <3s NEURO: Diminished protective sensation B/L MSK: 5/5 MS to all 4 cardinal planes of motion B/L. Right 3rd toe amputaiton DERM: RT 3rd toe amputation incision well coapted, sutures intact, normal post operative edema and erythema, appropriate drainage, no purulence BP 155/83 Pulse 76 Temp (Src) 98.4 (Oral) Resp 17 Ht 5' 4" (1.63m) Wt 230 lb 9.6 oz (104.6kg) SpO2 98% BMI 39.56 kg/(m2). O2 Therapy: Room Air DATA: Diagnostic tests reviewed for today's visit: Most recent labs and imaging results. CBC, Coags, BMP, Mg, Phos Recent Labs 01/24/24 0732 01/23/24 0710 01/22/24 1324 NA 138 137 140 K 3.9 4.1 3.8 CHLOR 105 101 103 CO2 24 26 29 BUN 16 17 18 CREAT 0.69 0.77 0.77 GLUC 211* 209* 154* CA 8.6 8.6 8.4* MG 1.9 1.9 2.0 P 3.5 3.7 4.4 Impression/Recommendations SP Right 3rd toe amputation (DOS 01/22/24) RT 3rd toe OM, distal phalanx Cellulitis RT 3rd toe Ulcer RT 3rd toe level of bone Hammertoe RT 3rd toe DMII with neuropathy Exam/Evaluation: 01/05/24 RT foot xray: OM of the distal phalanx of the third digit of the right foot. 01/20/24 Blood cultures: negative 01/22/24 OR RT 3rd toe Swab culture: preliminary, no organisms 01/22/24: OR RT 3rd toe pathology: pending 01/23/24 right foot XR: pending final read Wound Care: RT foot: betadine along incision, xeroform, 4x4 guaze, kerlix and tape. Nursing dressing orders in. Nuring dressing change today. Podiatry did not change dressing today. Weightbearing as tolerated RIGHT foot Full weightbearing LEFT foot. Reviewed XR left foot post op shows amputation of 3rd digit pending final radiologist read Progressing as expected. Patient doing well Cont abx per ID. Will continue to follow until discharge. Ok to DC from podiatry perspective. Follow OR cultures. DC instructions in. SIGNATURE: Willi Stanley DPM PATIENT NAME: Juana Handy DATE: January 24, 2024 TIME: 9:17 AM PAGER: Normal [facility] Magnesium SerPl-mCncon 01-23 Magnesium [Mass/Vol] 1.9 mg/dL Normal 1.7-2.3 [facility] Comment on above: Order Comment: Speci men Type: BLOOD SPECIMENOrdering Facility: [facility] Address: [address] [place] [address] Performed By: #### 2 4362-6, ####SPICER LABORATORYCLIA [id number] [address] [place] Renal function 2000 panelon 01-24-2024 Albumin [Mass/Vol] 3.3 g/dL Low 3.9-4.9 [facility] Comment on above: Order Comment: Speci men Type: BLOOD SPECIMENOrdering Facility: [facility] Address: [address] [place] [address] Performed By: #### 2 4362-6, ####SPICER LABORATORYCLIA [id number] [place] [id number] [place] [facility] Anion gap [Moles/Vol] 9 mmol/L Normal 9-18 [facility] Comment on above: Order Comment: Speci men Type: BLOOD SPECIMENOrdering Facility: [facility] Address: [address] [place] [address] Performed By: #### 2 4362-6, ####SPICER LABORATORYCLIA [id number] [place] [id number] [place] Calcium [Mass/Vol] 8.6 mg/dL Normal 8.5-10.2 [facility] Comment on above: Order Comment: Speci men Type: BLOOD SPECIMENOrdering Facility: [facility] Address: [facility] [place] [address] Performed By: #### 2 4362-6, ####SPICER LABORATORYCLIA [id number] [place] [address] Chloride [Moles/Vol] 105 mmol/L Normal 97-105 [facility] Comment on above: Order Comment: Geetha cortes Type: BLOOD SPECIMENOrdering Facility: [facility] Address: [address] [place] [place] [id number] Performed By: #### 2 4362-6, ####SPICER LABORATORYCLIA [id number] [address] CO2 [Moles/Vol] 24 mmol/L Normal 22-30 [facility] Comment on above: Order Comment: Speci men Type: BLOOD SPECIMENOrdering Facility: [facility] Address: [address] [place] [address] Performed By: #### 2 4362-6, ####SPICER LABORATORYCLIA [id number] [address] Creatinine [Mass/Vol] 0.69 mg/dL Normal 0.58-0.96 [facility] Comment on above: Order Comment: Nazi men Type: BLOOD SPECIMENOrdering Facility: [facility] Address: [address] [place] [address] Performed By: #### 2 4362-6, ####SPICER LABORATORYCLIA [id number] [address] Creatinine and Glomerular filtration rate.predicted panel (S/P/Bld) 101 mL/min/1.73m??? Normal >=60 [facility] Comment on above: Order Comment: Geetha men Type: BLOOD SPECIMENOrdering Facility: [facility] Address: [address] [place] [address] Result Comment: Francoise mated Glomerular Filtration Rate (eGFR) is calculated using the 2020 CKD-EPI creatinine equation. This equation utilizes serum creatinine, sex, and age as parameters. The creatinine assay has traceable calibration to isotope dilution-mass spectrometry. Refer to KDIGO guidelines for clinical interpretation. In patients with unstable renal function, e.g. those with acute kidney injury, the eGFR may not accurately reflect actual GFR. Performed By: #### 2 4362-6, ####SPICER LABORATORYCLIA [id number] [place] [address] [place] Glucose [Mass/Vol] 211 mg/dL High 74-99 [facility] Comment on above: Order Comment: Geetha cortes Type: BLOOD SPECIMENOrdering Facility: [facility] Address: [address] [place] [address] Result Comment: The [place] [employer] (ADA) provides guidance for cutoff values for fasting glucose and random glucose. The ADA defines fasting as no caloric intake for at least 8 hours. Fasting plasma glucose results between 100 to 125 mg/dL indicate increased risk for diabetes (prediabetes). Fasting plasma glucose results greater than or equal to 126 mg/dL meet the criteria for diagnosis of diabetes. In the absence of unequivocal hyperglycemia, results should be confirmed by repeat testing. In a patient with classic symptoms of hyperglycemia or hyperglycemic crisis, random plasma glucose results greater than or equal to 200 mg/dL meet the criteria for diagnosis of diabetes. Reference: Standards of Medical Care in Diabetes 2016, [place] [employer]. Diabetes Care. 2016.39(Suppl 1). Performed By: #### 2 4362-6, ####SPICER LABORATORYCLIA [id number] [place] [address] [place] Phosphate [Mass/Vol] 3.5 mg/dL Normal 2.7-4.8 [facility] Comment on above: Order Comment: Geetha cortes Type: BLOOD SPECIMENOrdering Facility: [facility] Address: [address] [place] [address] Performed By: #### 2 4362-6, ####SPICER LABORATORYCLIA [id number] [place] [id number] [place] Potassium [Moles/Vol] 3.9 mmol/L Normal 3.7-5.1 [facility] Comment on above: Order Comment: Geetha cortes Type: BLOOD SPECIMENOrdering Facility: [facility] Address: [address] [place] [address] Performed By: #### 2 4362-6, ####SPICER LABORATORYCLIA [id number] [place] [id number] [place] Sodium [Moles/Vol] 138 mmol/L Normal 136-144 [facility] Comment on above: Order Comment: Geetha cortes Type: BLOOD SPECIMENOrdering Facility: [facility] Address: [address] [place], [place] [address] Performed By: #### 2 4362-6, ####SPICER LABORATORYCLIA [id number] [place] [address] [facility] Urea nitrogen [Mass/Vol] 16 mg/dL Normal 7- [facility] Comment on above: Order Comment: Speci men Type: BLOOD SPECIMENOrdering Facility: [facility] Address: [address] [place], [place] [address] Performed By: #### 2 4362-6, ####SPICER LABORATORYCLIA [id number] [place] [id number] [facility] [place] ALLIED HEALTHon 01-23-2024 ALLIED HEALTH HNO ID: [id number] Author: YANELI HOLDEN Tech Service: ? Author Type: Children Librarian Type: Allied Health Filed: 01/23/2024 21:21 Note Text: Radiology Service Progress Note PATIENT NAME: Juana Handy DATE OF SERVICE: January 23, 2024 TIME: 9:21 PM PATIENT IDENTITY VERIFICATION COMPLETED USING TWO (2) IDENTIFIERS: Name and Date of confirmed by patient verbally and Name and Date of confirmed by identification band. FALL SCREENING: Has the patient had 2 falls in the last year or 1 fall with injury or currently using an Ambulatory Assistive Device (Walker, Cane, Wheelchair, Crutches, etc.)? Inpatient: Screened on floor PATIENT GENDER DATA: Female. status: : No status: N/A PATIENT RELEVANT IMPLANT DATA REVIEWED: Not Applicable PATIENT PRESENTS WITH AN IMPLANTABLE OR ATTACHED DIRECTOR OF PUPIL PERSONNEL PROGRAM: No RADIOLOGY DEPARTMENT: General X-ray: Exam(s) Completed: Lower Extremity X-Ray(s): Foot, Right PERIPHERAL IV DATA: Not applicable SIGNED BY: Leigh Nair January 23, 2024 9:21 PM [facility] CONSULT PROGon 01-23-2024 CONSULT PROG HNO ID: [id number] Author: PRANAY SANTO RPh Service: Pharmacy Author Type: Pharmacist Type: Consult Progress Note Filed: 01/23/2024 16:56 Note Text: PHARMACY VANCOMYCIN DOSING NOTE Patient Name: Juana Handy Admission Date: 01/20/2024 Date of Consult: 01/23/2024 Time of Consult: 4:53 PM Indication: Bone AND joint infection Goal Range: 15-20 mcg/mL RECOMMENDATIONS/PLAN: Pharmacy consulted for vancomycin dosing for Juana Handy, a 58 year old female. 1. Patient is currently ordered Vancomycin 1.5 g IV q12h. Today is day 4 of therapy. Patient received first dose of vanco 1.5gm at [facility] on 01/20/24. 2. The most recent vancomycin level was 15.4 mcg/mL drawn at 16:11 on 01/23/24. This is a 11 hour level on the 4th day of therapy. Of note, one dose was missed on 01/22/24 due to patient being in procedure. 3. The present dose of vancomycin is the recommended dosage for this patient at this time. Continue therapy as prescribed. 4. The next vancomycin level will be ordered for 01/25/24 unless clinically indicated sooner. (Pharmacy will order) We will follow patient renal function, vancomycin levels and doses with you during the course of therapy. Additional recommendations will appear in follow up notes. If you have any questions, please contact pharmacy at [phone]. Age: [age] year old Allergies: ALLERGIES Allergen Reactions Lavender (Lavandula* Rash Metformin GI Upset Latex Rash Last 3 Encounter Wt Readings: Date: Wt: 01/20/2024 105.2 kg (231 lb 14.8 oz) 01/20/2024 100.7 kg (222 lb) 01/05/2024 100.2 kg (221 lb) Last 1 Encounter Ht Readings: Date: Ht: 01/20/2024 162.6 cm (5' 4") CrCl: 94 mL/min Temp (24hrs), Av.1 ?C (98.7 ?F), Min:36.8 ?C (98.2 ?F), Max:37.4 ?C (99.3 ?F) - Current Temp: 37.4 ?C (99.3 ?F) Labs BUN (mg/dL) Date Value 01/23/2024 17 01/22/2024 18 01/21/2024 16 Creatinine (mg/dL) Date Value 01/23/2024 0.77 01/22/2024 0.77 01/21/2024 0.70 WBC (k/uL) Date Value 01/21/2024 9.26 01/20/2024 7.36 01/20/2022 7.69 Vancomycin Levels: Vancomycin (ug/mL) Date/Time Value 01/23/2024 1611 15.4 Pranay Santo [facility] CONSULT PROG HNO ID: [id number] Author: CELSO GIRALDO APRN.CORPORATE CONSULTANT Service: Infectious Disease Author Type: Nurse Practitioner Type: Consult Progress Note Filed: 01/23/2024 16:19 Note Text: INFECTIOUS DISEASE PROGRESS NOTE Patient Name: Juana Handy INTERVAL HISTORY: Remains afebrile and HD stable on RA. Patient sitting at bedside, NAD. Denies any new complaints. Patient Active Hospital Problem List: Osteomyelitis (HCC) (01/20/2024) Obesity, Class II, BMI 35-39.9 (12/11/2021) Hypertension, essential (08/18/2018) Spinal stenosis of lumbar region without neurogenic claudication (11/04/2017) Type 2 diabetes mellitus without complication, with long-term current use of insulin (HCC) (05/05/2018) Undiagnosed cardiac murmurs (01/20/2024) Paroxysmal nocturnal dyspnea (01/21/2024) Diabetic polyneuropathy associated with type 2 diabetes mellitus (HCC) (01/21/2024) Full code status (01/21/2024) ASSESSMENT: RT 3rd toe OM, distal phalanx Cellulitis RT 3rd toe Ulcer RT 3rd toe level of bone Hammertoe RT 3rd toe DMII with neuropathy RECOMMENDATIONS: S/P RT partial 3rd toe amputation Follow Proximal margin cx Continue ceftriaxone Continue Vancomycin Monitor scr and Vanco T Follow blood cx: NGTD Monitor temps + counts Wound care Follow podiatry recs MEDICATIONS: reviewed. Current Facility-Administered Medications Medication Dose Route Frequency NaCl 0.9% iv flush bag 20 mL INTRAVENOUS PRN atorvastatin 40 mg tab(s) (LIPITOR) 40 mg ORAL AT BEDTIME lisinopril 20 mg tab(s) (ZESTRIL) 20 mg ORAL DAILY metoprolol tartrate (short acting) 25 mg tab(s) (LOPRESSOR) 25 mg ORAL BID aspirin 81 mg chewable tab(s) 81 mg ORAL DAILY pantoprazole DR 40 mg tab(s) (PROTONIX) 40 mg ORAL DAILY vancomycin 1.5 g in NaCl 0.9% 250 mL (VANCOCIN) 0.015 g/kg/dose INTRAVENOUS q 12 HR albuterol 2.5 mg /3 mL (0.083 %) 1.25 mg (PROVENTIL) 1.25 mg INHALATION TID acetaminophen 1,000 mg tab(s) (TYLENOL) 1,000 mg ORAL q 8 H PRN oxyCODONE IR 5 mg tab(s) (ROXICODONE) 5 mg ORAL q 3 H PRN oxyCODONE IR 10 mg tab(s) (ROXICODONE) 10 mg ORAL q 3 H PRN dextrose 40 % 15 g 15 g ORAL PRN Or glucagon 1 mg injection 1 mg INTRAMUSCULAR PRN Or dextrose 10% iv bolus 12.5 g INTRAVENOUS PRN insulin glargine 42 Units pen (long acting) 42 Units SUBCUTANEOUS AT BEDTIME insulin lispro 14 Units injection (rapid acting) (ADMElog) 14 Units SUBCUTANEOUS DAILY WITH BREAKFAST insulin lispro 14 Units injection (rapid acting) (ADMElog) 14 Units SUBCUTANEOUS DAILY wLUNCH insulin lispro 14 Units injection (rapid acting) (ADMElog) 14 Units SUBCUTANEOUS DAILY wDINNER insulin lispro injection (rapid acting) (ADMElog) SUBCUTANEOUS w MEALS insulin lispro injection (rapid acting) (ADMElog) SUBCUTANEOUS AT BEDTIME vancomycin dosing and monitoring per pharmacy OTHER As Directed sodium chloride 0.9 % (flush) 2-10 mL (BD POSIFLUSH) 2-10 mL INTRAVENOUS DIRECTED PRN And perflutren lipid microspheres 1.1 mg/mL 1.3 mL injection (DEFINITY) 1.3 mL INTRAVENOUS DIRECTED PRN cefTRIAXone iv piggyback 1 g in dextrose (iso-osmotic) 50 mL (ROCEPHIN) 1 g INTRAVENOUS q 24 H gabapentin 600 mg tab(s) (NEURONTIN) 600 mg ORAL BID benzocaine-menthol 1 Lozenge (CEPACOL) 1 Lozenge MUCOUS MEMBRANE (TOPICAL MOUTH AND THROAT) q 2 H PRN PHYSICAL EXAM: Vital signs: BP 135/71 Pulse 68 Temp 37 ?C (98.6 ?F) (Oral) Resp 20 Ht 162.6 cm (5' 4") Wt 105.2 kg (231 lb 14.8 oz) SpO2 99% BMI 39.81 kg/m? Temp (24hrs), Av.7 ?C (98.1 ?F), Min:36.4 ?C (97.5 ?F), Max:37 ?C (98.6 ?F) General: alert, oriented, NAD Lungs: bilaterally clear to auscultation Heart: regular rate and rhythm Abdomen: soft, non tender, non distended, BS+ Extremities: no edema No rashes, R foot with post-op dressing C/D/I No joint inflammation Neck supple Lines ok No CVAT Lines, Drains, and Airways Line Duration Peripheral 01/22/24 1500 Right Arm 22 Gauge 1 day Labs: Recent Labs 01/23/24 0710 01/22/24 1324 01/21/24 0531 01/20/24 1847 WBC -- -- 9.26 -- HB -- -- 11.9 -- PLT -- -- 302 -- INR -- -- -- <0.9* NA 137 140 136 -- K 4.1 3.8 4.1 -- CO2 26 29 28 -- BUN 17 18 16 -- CREAT 0.77 0.77 0.70 -- Microbiology data: reviewed Imaging data: reviewed Celso Giraldo APRN-JOVANA [facility] [phone] January 23, 2024 3:06 PM This note is not final until Authenticated by responsible provider. [facility] CONSULT PROG HNO ID: [id number] Author: LAVELLE MERCADO MD Service: Infectious Disease Author Type: Physician Type: Consult Progress Note Filed: 01/23/2024 15:28 Note Text: INFECTIOUS DISEASE PROGRESS NOTE Patient Name: Juana Handy INTERVAL HISTORY: No fevers. Went to OR yesterday. Pain is controlled. Patient Active Hospital Problem List: Osteomyelitis (HCC) (01/20/2024) Obesity, Class II, BMI 35-39.9 (12/11/2021) Hypertension, essential (08/18/2018) Spinal stenosis of lumbar region without neurogenic claudication (11/04/2017) Type 2 diabetes mellitus without complication, with long-term current use of insulin (HCC) (05/05/2018) Undiagnosed cardiac murmurs (01/20/2024) Paroxysmal nocturnal dyspnea (01/21/2024) Diabetic polyneuropathy associated with type 2 diabetes mellitus (HCC) (01/21/2024) Full code status (01/21/2024) ASSESSMENT: RT 3rd toe OM, distal phalanx Cellulitis RT 3rd toe Ulcer RT 3rd toe level of bone Hammertoe RT 3rd toe DMII with neuropathy RECOMMENDATIONS: OR today for RT partial 3rd toe amputation Proximal margin cx follow up Continue ceftriaxone Continue Vancomycin Monitor scr and Vanco T Follow blood cx: incubating Monitor temps + counts Wound care Follow podiatry recs MEDICATIONS: reviewed. Current Facility-Administered Medications Medication Dose Route Frequency NaCl 0.9% iv flush bag 20 mL INTRAVENOUS PRN atorvastatin 40 mg tab(s) (LIPITOR) 40 mg ORAL AT BEDTIME lisinopril 20 mg tab(s) (ZESTRIL) 20 mg ORAL DAILY metoprolol tartrate (short acting) 25 mg tab(s) (LOPRESSOR) 25 mg ORAL BID aspirin 81 mg chewable tab(s) 81 mg ORAL DAILY pantoprazole DR 40 mg tab(s) (PROTONIX) 40 mg ORAL DAILY vancomycin 1.5 g in NaCl 0.9% 250 mL (VANCOCIN) 0.015 g/kg/dose INTRAVENOUS q 12 HR albuterol 2.5 mg /3 mL (0.083 %) 1.25 mg (PROVENTIL) 1.25 mg INHALATION TID acetaminophen 1,000 mg tab(s) (TYLENOL) 1,000 mg ORAL q 8 H PRN oxyCODONE IR 5 mg tab(s) (ROXICODONE) 5 mg ORAL q 3 H PRN oxyCODONE IR 10 mg tab(s) (ROXICODONE) 10 mg ORAL q 3 H PRN dextrose 40 % 15 g 15 g ORAL PRN Or glucagon 1 mg injection 1 mg INTRAMUSCULAR PRN Or dextrose 10% iv bolus 12.5 g INTRAVENOUS PRN insulin glargine 42 Units pen (long acting) 42 Units SUBCUTANEOUS AT BEDTIME insulin lispro 14 Units injection (rapid acting) (ADMElog) 14 Units SUBCUTANEOUS DAILY WITH BREAKFAST insulin lispro 14 Units injection (rapid acting) (ADMElog) 14 Units SUBCUTANEOUS DAILY wLUNCH insulin lispro 14 Units injection (rapid acting) (ADMElog) 14 Units SUBCUTANEOUS DAILY wDINNER insulin lispro injection (rapid acting) (ADMElog) SUBCUTANEOUS w MEALS insulin lispro injection (rapid acting) (ADMElog) SUBCUTANEOUS AT BEDTIME vancomycin dosing and monitoring per pharmacy OTHER As Directed sodium chloride 0.9 % (flush) 2-10 mL (BD POSIFLUSH) 2-10 mL INTRAVENOUS DIRECTED PRN And perflutren lipid microspheres 1.1 mg/mL 1.3 mL injection (DEFINITY) 1.3 mL INTRAVENOUS DIRECTED PRN cefTRIAXone iv piggyback 1 g in dextrose (iso-osmotic) 50 mL (ROCEPHIN) 1 g INTRAVENOUS q 24 H gabapentin 600 mg tab(s) (NEURONTIN) 600 mg ORAL BID benzocaine-menthol 1 Lozenge (CEPACOL) 1 Lozenge MUCOUS MEMBRANE (TOPICAL MOUTH AND THROAT) q 2 H PRN PHYSICAL EXAM: Vital signs: BP 135/71 Pulse 68 Temp 37 ?C (98.6 ?F) (Oral) Resp 20 Ht 162.6 cm (5' 4") Wt 105.2 kg (231 lb 14.8 oz) SpO2 99% BMI 39.81 kg/m? Temp (24hrs), Av.7 ?C (98.1 ?F), Min:36.4 ?C (97.5 ?F), Max:37 ?C (98.6 ?F) General: alert, oriented, NAD Lungs: bilaterally clear to auscultation Heart: regular rate and rhythm Abdomen: soft, non tender, non distended, BS+ Extremities: no edema No rashes No joint inflammation Neck supple Lines ok No CVAT Lines, Drains, and Airways Line Duration Peripheral 01/22/24 1500 Right Arm 22 Gauge <1 day Labs: Recent Labs 01/23/24 0710 01/22/24 1324 01/21/24 0531 01/20/24 1847 WBC -- -- 9.26 -- HB -- -- 11.9 -- PLT -- -- 302 -- INR -- -- -- <0.9* NA 137 140 136 -- K 4.1 3.8 4.1 -- CO2 26 29 28 -- BUN 17 18 16 -- CREAT 0.77 0.77 0.70 -- Microbiology data: reviewed Imaging data: reviewed Lavelle Mercado MD Pager: Date of service: 01/23/2024 Time of service: 2:49 PM This note is not final until Authenticated by responsible provider. [facility] CONSULT PROG HNO ID: [id number] Author: WILLI STANLEY DPM Service: Podiatry Author Type: Physician Type: Consult Progress Note Filed: 01/23/2024 17:37 Note Text: PODIATRY SURGICAL SERVICE CONSULT PROGRESS NOTE SERVICE DATE: 01/23/2024 SERVICE TIME: 11:55 AM Subjective INTERVAL HPI: Patient seen bedside resting comfortably. No new pedal complaints. She is S/p RT 3rd toe amputation (DOS: 01/22/24) Current Facility-Administered Medications Medication Dose Route Frequency NaCl 0.9% iv flush bag 20 mL INTRAVENOUS PRN gabapentin 600 mg tab(s) (NEURONTIN) 600 mg ORAL AT BEDTIME atorvastatin 40 mg tab(s) (LIPITOR) 40 mg ORAL AT BEDTIME lisinopril 20 mg tab(s) (ZESTRIL) 20 mg ORAL DAILY metoprolol tartrate (short acting) 25 mg tab(s) (LOPRESSOR) 25 mg ORAL BID aspirin 81 mg chewable tab(s) 81 mg ORAL DAILY pantoprazole DR 40 mg tab(s) (PROTONIX) 40 mg ORAL DAILY vancomycin 1.5 g in NaCl 0.9% 250 mL (VANCOCIN) 0.015 g/kg/dose INTRAVENOUS q 12 HR albuterol 2.5 mg /3 mL (0.083 %) 1.25 mg (PROVENTIL) 1.25 mg INHALATION TID acetaminophen 1,000 mg tab(s) (TYLENOL) 1,000 mg ORAL q 8 H PRN oxyCODONE IR 5 mg tab(s) (ROXICODONE) 5 mg ORAL q 3 H PRN oxyCODONE IR 10 mg tab(s) (ROXICODONE) 10 mg ORAL q 3 H PRN dextrose 40 % 15 g 15 g ORAL PRN Or glucagon 1 mg injection 1 mg INTRAMUSCULAR PRN Or dextrose 10% iv bolus 12.5 g INTRAVENOUS PRN insulin glargine 42 Units pen (long acting) 42 Units SUBCUTANEOUS AT BEDTIME insulin lispro 14 Units injection (rapid acting) (ADMElog) 14 Units SUBCUTANEOUS DAILY WITH BREAKFAST insulin lispro 14 Units injection (rapid acting) (ADMElog) 14 Units SUBCUTANEOUS DAILY wLUNCH insulin lispro 14 Units injection (rapid acting) (ADMElog) 14 Units SUBCUTANEOUS DAILY wDINNER insulin lispro injection (rapid acting) (ADMElog) SUBCUTANEOUS w MEALS insulin lispro injection (rapid acting) (ADMElog) SUBCUTANEOUS AT BEDTIME vancomycin dosing and monitoring per pharmacy OTHER As Directed sodium chloride 0.9 % (flush) 2-10 mL (BD POSIFLUSH) 2-10 mL INTRAVENOUS DIRECTED PRN And perflutren lipid microspheres 1.1 mg/mL 1.3 mL injection (DEFINITY) 1.3 mL INTRAVENOUS DIRECTED PRN cefTRIAXone iv piggyback 1 g in dextrose (iso-osmotic) 50 mL (ROCEPHIN) 1 g INTRAVENOUS q 24 H acetaminophen 650 mg tab(s) (TYLENOL) 650 mg ORAL Pre-Op Once promethazine 12.5 mg tab(s) (PHENERGAN) 12.5 mg ORAL Pre-Op Once Objective PHYSICAL EXAM: VASC: DP and PT pulses palpable B/L. CFT <3s NEURO: Diminished protective sensation B/L MSK: 5/5 MS to all 4 cardinal planes of motion B/L. Right 3rd toe amputaiton DERM: RT 3rd toe amputation incision well coapted, sutures intact, normal post operative edema and erythema, appropriate drainage, no purulence BP 143/76 Pulse 57 Temp (Src) 97.5 (Oral) Resp 17 Ht 5' 4" (1.63m) Wt 230 lb 9.6 oz (104.6kg) SpO2 100% BMI 39.56 kg/(m2). O2 Therapy: Room Air, Liters: 6 DATA: Diagnostic tests reviewed for today's visit: Most recent labs and imaging results. CBC, Coags, BMP, Mg, Phos Recent Labs 01/23/24 0710 01/22/24 1324 01/21/24 0531 01/20/24 1847 WBC -- -- 9.26 -- HB -- -- 11.9 -- HCT -- -- 36.4 -- PLT -- -- 302 -- INR -- -- -- <0.9* APTT -- -- 29.3 -- NA 137 140 136 -- K 4.1 3.8 4.1 -- CHLOR 101 103 101 -- CO2 26 29 28 -- BUN 17 18 16 -- CREAT 0.77 0.77 0.70 -- GLUC 209* 154* 176* -- CA 8.6 8.4* 8.8 -- MG 1.9 2.0 2.0 -- P 3.7 4.4 3.7 -- Impression/Recommendations SP Right 3rd toe amputation (DOS 01/22/24) RT 3rd toe OM, distal phalanx Cellulitis RT 3rd toe Ulcer RT 3rd toe level of bone Hammertoe RT 3rd toe DMII with neuropathy Exam/Evaluation: 01/05/24 RT foot xray: OM of the distal phalanx of the third digit of the right foot. 01/22/24 OR RT 3rd toe Swab culture: Pending 01/22/24: OR RT 3rd toe pathology: Pending Wound Care: RT foot: betadine along incision, xeroform, 4x4 guaze, kerlix and tape. Nursing dressing orders in. Podiatry dressing change today. Weightbearing as tolerated RIGHT foot Full weightbearing LEFT foot. Discharge instructions in. Rx XR left foot post op Pt seen and evaluated bedside. Cont empiric abx per ID. Patient is doing well otherwise and has no pain at this time. Wound cultures from OR preliminary show now organisms at this time. Blood cultures negative at this time as well. Will continue to follow until discharge. Ok to DC from podiatry perspective. Follow OR cultures. DC instructions in. SIGNATURE: Amy Garcia DPM PATIENT NAME: Juana Handy DATE: January 23, 2024 TIME: 11:58 AM PAGER: I reviewed and addended with the assessment as documented above. SIGNATURE: Willi Stanley DPM DATE: January 23, 2024 TIME: 5:36 PM Normal [facility] Magnesium [Mass/Vol] 1.9 mg/dL Normal 1.7-2.3 [facility] Comment on above: Order Comment: Speci men Type: BLOOD SPECIMENOrdering Facility: [facility] Address: [address] [place] [address] Performed By: #### 1 9123-9, 85118-4 ####SPICER LABORATORYCLIA [id number] [place] [address] [place] Renal function 2000 panelon 01-23-2024 Albumin [Mass/Vol] 3.6 g/dL Low 3.9-4.9 [facility] Comment on above: Order Comment: Speci men Type: BLOOD SPECIMENOrdering Facility: [facility] Address: [address] [place] [address] Performed By: #### 1 9123-9, 76248-2 ####SPICER LABORATORYCLIA [id number] [place] [address] [place] Anion gap [Moles/Vol] 10 mmol/L Normal 9-18 [facility] Comment on above: Order Comment: Speci men Type: BLOOD SPECIMENOrdering Facility: [facility] Address: [address] [place] [address] Performed By: #### 1 9123-9, 32193-5 ####SPICER LABORATORYCLIA [id number] [place] [address] [place] Calcium [Mass/Vol] 8.6 mg/dL Normal 8.5-10.2 [facility] Comment on above: Order Comment: Speci men Type: BLOOD SPECIMENOrdering Facility: [facility] Address: [address] [place] [address] Performed By: #### 1 9123-9, 98035-4 ####SPICER LABORATORYCLIA [id number] [place] [address] [place] Chloride [Moles/Vol] 101 mmol/L Normal 97-105 [facility] Comment on above: Order Comment: Speci men Type: BLOOD SPECIMENOrdering Facility: [facility] Address: [address] [place] [address] Performed By: #### 1 9123-9, 90384-9 ####SPICER LABORATORYCLIA [id number] [place] [address] [place] CO2 [Moles/Vol] 26 mmol/L Normal 22-30 [facility] Comment on above: Order Comment: Speci men Type: BLOOD SPECIMENOrdering Facility: [facility] Address: [address] [place] [address] Performed By: #### 1 9123-9, 99109-0 ####[facility] LABORATORYCLIA [id number] [place] [address] [place] Creatinine [Mass/Vol] 0.77 mg/dL Normal 0.58-0.96 [facility] Comment on above: Order Comment: Geetah cortes Type: BLOOD SPECIMENOrdering Facility: [facility] Address: [address] [place] [address] Performed By: #### 1 9123-9, 00713-9 ####[facility] LABORATORYCLIA [id number] [place] [id number] [facility] [place] Creatinine and Glomerular filtration rate.predicted panel (S/P/Bld) 90 mL/min/1.73m??? Normal >=60 [facility] Comment on above: Order Comment: Geetha cortes Type: BLOOD SPECIMENOrdering Facility: [facility] Address: [address] [place] [address] Result Comment: Francoise mated Glomerular Filtration Rate (eGFR) is calculated using the 2020 CKD-EPI creatinine equation. This equation utilizes serum creatinine, sex, and age as parameters. The creatinine assay has traceable calibration to isotope dilution-mass spectrometry. Refer to KDIGO guidelines for clinical interpretation. In patients with unstable renal function, e.g. those with acute kidney injury, the eGFR may not accurately reflect actual GFR. Performed By: #### 1 9123-9, 08538-0 ####[facility] LABORATORYCLIA [id number] [place] [id number] [place] Glucose [Mass/Vol] 209 mg/dL High 74-99 [facility] Comment on above: Order Comment: Geetha cortes Type: BLOOD SPECIMENOrdering Facility: [facility] Address: [address] [place] [address] Result Comment: The [place] [employer] (ADA) provides guidance for cutoff values for fasting glucose and random glucose. The ADA defines fasting as no caloric intake for at least 8 hours. Fasting plasma glucose results between 100 to 125 mg/dL indicate increased risk for diabetes (prediabetes). Fasting plasma glucose results greater than or equal to 126 mg/dL meet the criteria for diagnosis of diabetes. In the absence of unequivocal hyperglycemia, results should be confirmed by repeat testing. In a patient with classic symptoms of hyperglycemia or hyperglycemic crisis, random plasma glucose results greater than or equal to 200 mg/dL meet the criteria for diagnosis of diabetes. Reference: Standards of Medical Care in Diabetes 2016, [place] [employer]. Diabetes Care. 2016.39(Suppl 1). Performed By: #### 1 9123-9, 69982-1 ####SPICER LABORATORYCLIA [id number] [place] [address] [place] Phosphate [Mass/Vol] 3.7 mg/dL Normal 2.7-4.8 [facility] Comment on above: Order Comment: Geetha cortes Type: BLOOD SPECIMENOrdering Facility: [facility] Address: [address] [place] [address] Performed By: #### 1 919, ####SPICER LABORATORYCLIA [id number] [place] [address] [place] Potassium [Moles/Vol] 4.1 mmol/L Normal 3.7-5.1 [facility] Comment on above: Order Comment: Geetha cortes Type: BLOOD SPECIMENOrdering Facility: [facility] Address: [address] [place] [address] Performed By: #### 1 9123-9, 66305-1 ####SPICER LABORATORYCLIA [id number] [place] [address] [place] Sodium [Moles/Vol] 137 mmol/L Normal 136-144 [facility] Comment on above: Order Comment: Geetha cortes Type: BLOOD SPECIMENOrdering Facility: [facility] Address: [address] [place] [address] Performed By: #### 1 9123-9, 84164-3 ####SPICER LABORATORYCLIA [id number] [place] [address] [place] Urea nitrogen [Mass/Vol] 17 mg/dL Normal 7-21 [facility] Comment on above: Order Comment: Geetha cortes Type: BLOOD SPECIMENOrdering Facility: [facility] Address: [address] [place] [address] Performed By: #### 1 9123-9, 63983-4 ####SPICER LABORATORYCLIA [id number] [address] OF [facility] Vancomycin Amy Youngl-mCncon 01-23-2024 Vancomycin random [Mass/Vol] 15.4 ug/mL Normal 10.0-20.0 [facility] Comment on above: Order Comment: Speci men Type: BLOOD SPECIMENOrdering Facility: [facility] Address: [facility] [place] [address] Result Comment: Refe rence ranges and high/low indicator flags are provided as general guidelines only. The treating physician must determine appropriate target levels/dosing based on the specific clinical situation. Performed By: #### 4 091-5 ####[facility]ORATORYCLIA [id number] [address] XR FOOT 3V AP/LAT/OBL RTon 0 01-23-2024 XR FOOT 3V AP/LAT/OBL RT * * *Final Report* * * DATE OF EXAM: Jan 23 2024 9:18PM MDX 5337 - XR FOOT 3V AP/LAT/OBL RT / PROCEDURE REASON: Post-operative / post-procedure assessment * * * * Physician Interpretation * * * * EXAM(s): XR FOOT 3V AP/LAT/OBL RT..... HISTORY: 58 years old Clinical information: Post-operative / post-procedure assessment POST OP RIGHT FOOT TECHNIQUE: Images: XR FOOT 3V AP/LAT/OBL RT Comparison: 01/05/2024. RESULT: Findings: Interval amputation of the third digit is noted. Severe narrowing of the first metacarpal phalangeal joint. Mild hallux valgus deformity. Moderate bunion formation distal medial first metatarsal. Small anterior heel spur. No fractures or dislocations are seen. IMPRESSION: Interval amputation third digit Vallez Filter Operator: ELENA Transcribe Date/Time: Jan 25 2024 8:06A Dictated by : CORIN BHAKTA DO This examination was interpreted and the report reviewed and electronically signed by: CORIN BHAKTA DO on Jan 25 2024 8:07AM EST [id number] Normal [facility] ANES POSTPROC EVALon 024 ANES POSTPROC EVAL HNO ID: [id number] Author: RAFAEL VALADEZ MD Service: Anesthesiology Author Type: Anesthesiologist Type: Anesthesia Postprocedure Evaluation Filed: 01/22/2024 17:44 Note Text: POST ANESTHESIA EVALUATION NOTE : 1965 Procedure Summary Date: 01/22/24 Room / Location: [place] OR06 [place] Anesthesia Start: 1057 Anesthesia Stop: 1141 Procedure: AMPUTATION TOE METATARSOPHALANGEAL JOINT 3rd toe (Right: Foot) Diagnosis: Osteomyelitis of right foot (HCC) (Osteomyelitis of right foot (HCC) [M86.9]) Surgeons: Mike Holbrook DPM Responsible Provider: Rafael Valadez MD Anesthesia Type: MAC ASA Status: 3 Anesthesia Type: MAC Last Vitals Vitals Value Taken Time BP 143/76 01/22/24 1619 Temp 36.4 ?C (97.5 ?F) 01/22/24 1619 Pulse 57 01/22/24 1619 Resp 17 01/22/24 1619 SpO2 100 % 01/22/241618 Post Anesthesia Patient Status Patient Evaluation: bedside. Anticipated Disposition: inpatient floor planned admission. Neurological Status: sleepy but arousable. Pulmonary Status: breathing comfortably on room air Airway Control: returned to baseline unsupported. Cardiovascular Status: stable. Pain Management: clinically adequate Postoperative Hydration: acceptable. Intraoperative Events: no significant anesthesia events Post Operative Nausea/Vomiting Status: no significant post operative nausea or vomiting Recommendation: continue current plan of care and pain control. Anesthesia Observations No Documentation SIGNATURE: Rafael Valadez MD PATIENT NAME: Juana Handy DATE: January 22, 2024 TIME: 5:44 PM CSN: [id number] [facility] ANES PRE-OPon 01-22-2024 ANES PRE-OP HNO ID: [id number] Author: RAFAEL VALADEZ MD Service: Anesthesiology Author Type: Anesthesiologist Type: Anesthesia Preprocedure Evaluation Filed: 01/22/2024 11:42 Note Text: ANESTHESIOLOGY DAY OF SURGERY NOTE : 1965 Procedure Information Anesthesia Start Date/Time: 01/22/24 1057 Procedure: AMPUTATION TOE METATARSOPHALANGEAL JOINT 3rd toe (Right: Foot) [place]06 [place] Surgeons: Mike Holbrook DPM Estimated body mass index is 39.58 kg/m? as calculated from the following: Height as of this encounter: 162.6 cm (5' 4"). Weight as of this encounter: 104.6 kg (230 lb 9.6 oz). Most recent hematocrit and potassium results: Hematocrit 36.4 01/21/2024 Potassium 4.1 01/21/2024 Relevant Problems CARDIO (+) Hypertension, essential (+) Paroxysmal nocturnal dyspnea (+) Undiagnosed cardiac murmurs (-) Angina at rest (HCC) (-) Angina of effort (HCC) ENDO (+) Type 2 diabetes mellitus without complication, with long-term current use of insulin (HCC) GI (+) Gastroesophageal reflux disease PULMONARY (+) Paroxysmal nocturnal dyspnea (+) Pneumonia due to severe acute respiratory syndrome coronavirus 2 (SARS-CoV-2) Other (+) Osteomyelitis ([facility]) I - PHYSICAL EVALUATION AIRWAY Patient intubated: No. Tracheostomy tube not present Mallampati: II. TM distance: >3 FB. Neck ROM: full ROM without neurological symptoms. Mouth opening: adequate. Short neck: no. Thick neck: no DENTAL Dental findings: teeth intact and poor dentition. II - ANESTHESIA PLAN ASA Score: 3 Anesthetic Plan: MAC The patient is not a current smoker. NPO Status: adequate [place] Monitoring Plan Monitoring plan: standard ASA. Post Procedure Analgesic Plan Postoperative analgesic plan: multimodal analgesia. Informed Consent Anesthetic risks, benefits, alternatives, personnel and consent discussed: yes. Patient / Responsible Alliance Party agrees to proceed: yes Patient / Surrogate agrees to blood products: Yes DNR status not reviewed with patient and/or family prior to surgery. Significant changes in the patient condition since the History and Physical, not otherwise documented in primary service progress note: no. Potential Anesthesia issues that may suggest increased risk of complications or contraindication to planned procedure: none. No vitals data found for the desired time range. Facility-Administered Medications as of 01/22/2024 Medication Dose Route Frequency [COMPLETED] cefTRIAXone iv piggyback 1 g in dextrose (iso-osmotic) 50 mL (ROCEPHIN) 1 g INTRAVENOUS ONCE [COMPLETED] vancomycin 1.5 g in D5W 250 mL Vial-Mate (VANCOCIN) 0.015 g/kg/dose INTRAVENOUS ONCE [Held on Transfer] NaCl 0.9% iv flush bag 20 mL INTRAVENOUS PRN [Held on Transfer] gabapentin 600 mg tab(s) (NEURONTIN) 600 mg ORAL AT BEDTIME [Held on Transfer] atorvastatin 40 mg tab(s) (LIPITOR) 40 mg ORAL AT BEDTIME [Held on Transfer] lisinopril 20 mg tab(s) (ZESTRIL) 20 mg ORAL DAILY [Held on Transfer] metoprolol tartrate (short acting) 25 mg tab(s) (LOPRESSOR) 25 mg ORAL BID [Held on Transfer] aspirin 81 mg chewable tab(s) 81 mg ORAL DAILY [Held on Transfer] pantoprazole DR 40 mg tab(s) (PROTONIX) 40 mg ORAL DAILY [Held on Transfer] vancomycin 1.5 g in NaCl 0.9% 250 mL (VANCOCIN) 0.015 g/kg/dose INTRAVENOUS q 12 HR [Held on Transfer] albuterol 2.5 mg /3 mL (0.083 %) 1.25 mg (PROVENTIL) 1.25 mg INHALATION TID [Held on Transfer] acetaminophen 1,000 mg tab(s) (TYLENOL) 1,000 mg ORAL q 8 H PRN [Held on Transfer] oxyCODONE IR 5 mg tab(s) (ROXICODONE) 5 mg ORAL q 3 H PRN [Held on Transfer] oxyCODONE IR 10 mg tab(s) (ROXICODONE) 10 mg ORAL q 3 H PRN [Held on Transfer] dextrose 40 % 15 g 15 g ORAL PRN Or [Held on Transfer] glucagon 1 mg injection 1 mg INTRAMUSCULAR PRN Or [Held on Transfer] dextrose 10% iv bolus 12.5 g INTRAVENOUS PRN [Held on Transfer] insulin glargine 42 Units pen (long acting) 42 Units SUBCUTANEOUS AT BEDTIME [Held on Transfer] insulin lispro 14 Units injection (rapid acting) (ADMElog) 14 Units SUBCUTANEOUS DAILY WITH BREAKFAST [Held on Transfer] insulin lispro 14 Units injection (rapid acting) (ADMElog) 14 Units SUBCUTANEOUS DAILY wLUNCH [Held on Transfer] insulin lispro 14 Units injection (rapid acting) (ADMElog) 14 Units SUBCUTANEOUS DAILY wDINNER [Held on Transfer] insulin lispro injection (rapid acting) (ADMElog) SUBCUTANEOUS w MEALS [Held on Transfer] insulin lispro injection (rapid acting) (ADMElog) SUBCUTANEOUS AT BEDTIME [Held on Transfer] vancomycin dosing and monitoring per pharmacy OTHER As Directed [Held on Transfer] sodium chloride 0.9 % (flush) 2-10 mL (BD POSIFLUSH) 2-10 mL INTRAVENOUS DIRECTED PRN And [Held on Transfer] perflutren lipid microspheres 1.1 mg/mL 1.3 mL injection (DEFINITY) 1.3 mL INTRAVENOUS DIRECTED PRN [Held on Transfer] cefTRIAXone iv piggyback 1 g in dextrose (iso-osmotic) 50 mL (ROCEPHIN) 1 g INTRAVENOUS q 24 (more content not included)... Normal [facility] Bacteria Spec Anaerobe Culto n 01-22-2024 Bacteria identified Anaer cx Nom (Unsp spec) Negative Normal [facility] Comment on above: Performed By: #### 6 35-3, 6462-6 ####[facility] LABCLIA [id number] [address] [place] Bacteria Wnd Culton 01-22-20 24 Bacteria identified Cx Nom (Wound) ORGANISM ID: 1 Rare skin princess GRAM STAIN: No organisms seen No Polymorphonuclear Leukocytes Normal [facility] Comment on above: Performed By: #### 6 35-3, 6462-6 ####[facility] LABCLIA [id number] [address] [place] CONSULT PROGon 01-22-2024 CONSULT PROG HNO ID: [id number] Author: LAVELLE MERCADO MD Service: Infectious Disease Author Type: Physician Type: Consult Progress Note Filed: 01/23/2024 14:54 Note Text: INFECTIOUS DISEASE PROGRESS NOTE Patient Name: Juana Handy INTERVAL HISTORY: No fevers. Went to OR today. Pain is controlled. Patient Active Hospital Problem List: Osteomyelitis (HCC) (01/20/2024) Obesity, Class II, BMI 35-39.9 (12/11/2021) Hypertension, essential (08/18/2018) Spinal stenosis of lumbar region without neurogenic claudication (11/04/2017) Type 2 diabetes mellitus without complication, with long-term current use of insulin ([facility]) (05/05/2018) Undiagnosed cardiac murmurs (01/20/2024) Paroxysmal nocturnal dyspnea (01/21/2024) Diabetic polyneuropathy associated with type 2 diabetes mellitus (HCC) (01/21/2024) Full code status (01/21/2024) ASSESSMENT: RT 3rd toe OM, distal phalanx Cellulitis RT 3rd toe Ulcer RT 3rd toe level of bone Hammertoe RT 3rd toe DMII with neuropathy RECOMMENDATIONS: OR today for RT partial 3rd toe amputation Proximal margin cx appreciated Continue ceftriaxone Continue Vancomycin Monitor scr and Vanco T Follow blood cx: incubating Monitor temps + counts Wound care Follow podiatry recs MEDICATIONS: reviewed. Current Facility-Administered Medications Medication Dose Route Frequency NaCl 0.9% iv flush bag 20 mL INTRAVENOUS PRN atorvastatin 40 mg tab(s) (LIPITOR) 40 mg ORAL AT BEDTIME lisinopril 20 mg tab(s) (ZESTRIL) 20 mg ORAL DAILY metoprolol tartrate (short acting) 25 mg tab(s) (LOPRESSOR) 25 mg ORAL BID aspirin 81 mg chewable tab(s) 81 mg ORAL DAILY pantoprazole DR 40 mg tab(s) (PROTONIX) 40 mg ORAL DAILY vancomycin 1.5 g in NaCl 0.9% 250 mL (VANCOCIN) 0.015 g/kg/dose INTRAVENOUS q 12 HR albuterol 2.5 mg /3 mL (0.083 %) 1.25 mg (PROVENTIL) 1.25 mg INHALATION TID acetaminophen 1,000 mg tab(s) (TYLENOL) 1,000 mg ORAL q 8 H PRN oxyCODONE IR 5 mg tab(s) (ROXICODONE) 5 mg ORAL q 3 H PRN oxyCODONE IR 10 mg tab(s) (ROXICODONE) 10 mg ORAL q 3 H PRN dextrose 40 % 15 g 15 g ORAL PRN Or glucagon 1 mg injection 1 mg INTRAMUSCULAR PRN Or dextrose 10% iv bolus 12.5 g INTRAVENOUS PRN insulin glargine 42 Units pen (long acting) 42 Units SUBCUTANEOUS AT BEDTIME insulin lispro 14 Units injection (rapid acting) (ADMElog) 14 Units SUBCUTANEOUS DAILY WITH BREAKFAST insulin lispro 14 Units injection (rapid acting) (ADMElog) 14 Units SUBCUTANEOUS DAILY wLUNCH insulin lispro 14 Units injection (rapid acting) (ADMElog) 14 Units SUBCUTANEOUS DAILY wDINNER insulin lispro injection (rapid acting) (ADMElog) SUBCUTANEOUS w MEALS insulin lispro injection (rapid acting) (ADMElog) SUBCUTANEOUS AT BEDTIME vancomycin dosing and monitoring per pharmacy OTHER As Directed sodium chloride 0.9 % (flush) 2-10 mL (BD POSIFLUSH) 2-10 mL INTRAVENOUS DIRECTED PRN And perflutren lipid microspheres 1.1 mg/mL 1.3 mL injection (DEFINITY) 1.3 mL INTRAVENOUS DIRECTED PRN cefTRIAXone iv piggyback 1 g in dextrose (iso-osmotic) 50 mL (ROCEPHIN) 1 g INTRAVENOUS q 24 H gabapentin 600 mg tab(s) (NEURONTIN) 600 mg ORAL BID benzocaine-menthol 1 Lozenge (CEPACOL) 1 Lozenge MUCOUS MEMBRANE (TOPICAL MOUTH AND THROAT) q 2 H PRN PHYSICAL EXAM: Vital signs: BP 135/71 Pulse 68 Temp 37 ?C (98.6 ?F) (Oral) Resp 20 Ht 162.6 cm (5' 4") Wt 105.2 kg (231 lb 14.8 oz) SpO2 99% BMI 39.81 kg/m? Temp (24hrs), Av.7 ?C (98.1 ?F), Min:36.4 ?C (97.5 ?F), Max:37 ?C (98.6 ?F) General: alert, oriented, NAD Lungs: bilaterally clear to auscultation Heart: regular rate and rhythm Abdomen: soft, non tender, non distended, BS+ Extremities: no edema No rashes No joint inflammation Neck supple Lines ok No CVAT Lines, Drains, and Airways Line Duration Peripheral 01/22/24 1500 Right Arm 22 Gauge <1 day Labs: Recent Labs 01/23/24 0710 01/22/24 1324 01/21/24 0531 01/20/24 1847 WBC -- -- 9.26 -- HB -- -- 11.9 -- PLT -- -- 302 -- INR -- -- -- <0.9* NA 137 140 136 -- K 4.1 3.8 4.1 -- CO2 26 29 28 -- BUN 17 18 16 -- CREAT 0.77 0.77 0.70 -- Microbiology data: reviewed Imaging data: reviewed Lavelle Mercado MD Pager: Date of service: 01/22/2024 Time of service: 2:49 PM This note is not final until Authenticated by responsible provider. [facility] CONSULT PROG HNO ID: [id number] Author: PRANAY SANTO RPh Service: Pharmacy Author Type: Pharmacist Type: Consult Progress Note Filed: 01/22/2024 13:06 Note Text: PHARMACY VANCOMYCIN DOSING NOTE Patient Name: Juana Handy Admission Date: 01/20/2024 Date of Consult: 01/20/2024 Time of Consult: 4:59 PM Indication: Bone AND joint infection Goal Range: 15-20 mcg/mL RECOMMENDATIONS/PLAN: Pharmacy consulted for vancomycin dosing for Juana Handy, a 58 year old female. 1. Patient is currently ordered Vancomycin 1.5 g IV q12h. Today is day 3 of therapy. Patient received first dose of vanco 1.5gm at [place] [facility] on 01/20/24. 2. No vancomycin level has been drawn for this dosing regimen. 3. The present dose of vancomycin is the recommended dosage for this patient at this time. Continue therapy as prescribed. Due to patient being on OR at the time of vanco trough draw, will retime vanco trough. 4. The next vancomycin level has been ordered for 01/22 (Completed) We will follow patient renal function, vancomycin levels and doses with you during the course of therapy. Additional recommendations will appear in follow up notes. If you have any questions, please contact pharmacy at [phone]. Age: [age] year old Allergies: ALLERGIES Allergen Reactions Lavender (Lavandula* Rash Metformin GI Upset Latex Rash Last 3 Encounter Wt Readings: Date: Wt: 01/20/2024 102.5 kg (225 lb 15.5 oz) 01/20/2024 100.7 kg (222 lb) 01/05/2024 100.2 kg (221 lb) Last 1 Encounter Ht Readings: Date: Ht: 01/20/2024 162.6 cm (5' 4") CrCl: 103 mL/min Temp (24hrs), Av.4 ?C (97.5 ?F), Min:36.4 ?C (97.5 ?F), Max:36.4 ?C (97.5 ?F) - Current Temp: 36.4 ?C (97.5 ?F) Labs BUN (mg/dL) Date Value 01/21/2024 16 01/20/2024 14 12/22/2022 9 Creatinine (mg/dL) Date Value 01/21/2024 0.70 01/20/2024 0.59 12/22/2022 0.72 WBC (k/uL) Date Value 01/21/2024 9.26 01/20/2024 7.36 01/20/2022 7.69 Vancomycin Levels: No results found for: "VANCORA" Damian Browneno, [facility] Normal [facility] Magnesium SerPl-mCncon 01-21 Magnesium [Mass/Vol] 2.0 mg/dL Normal 1.7-2.3 [facility] Comment on above: Order Comment: Speci men Type: BLOOD SPECIMENOrdering Facility: [facility] Address: [address] [place] [address] Performed By: #### 1 9123-9, 65218-3 ####[facility]ORATORYCLIA [id number] [address] OPERATIVE NOon 01-22-2024 OPERATIVE NO HNO ID: [id number] Author: MIKE HOLBROOK DPM Service: Podiatry Author Type: Physician Type: Operative Report Filed: 01/22/2024 11:49 Note Text: OPERATIVE/PROCEDURE REPORT LOG ID: [id number] SURGERY/PROCEDURE DATE: 01/22/2024 INCISION/PROCEDURE START TIME: 11:10 AM INCISION CLOSE/PROCEDURE END TIME: 11:38 AM PRE-OP/PRE-PROCEDURE DIAGNOSIS: Osteomyelitis, R 3rd toe Abscess, R 3rd toe Cellulitis, R 3rd toe Ulcer, R 3rd toe, level of bone DMII with neuropathy POST-OP/POST-PROCEDURE DIAGNOSIS: Same as Preop SURGERY/PROCEDURE(S): R 3rd toe amputation at MTPJ IANDD R foot deep multiple areas level of bone sharp excisional nonselective debridement into level of bone (post debridement [id number] ) SURGEON(S)/PROCEDURALIST(S) AND NON PROFIT JOB TITLES(S): Surgeon(s) and Role: * Mike Holbrook DPM - Primary No Additional Staff ANESTHESIA: Monitored Anesthesia Care with third ray block with 10 cc of .5 percent marcaine plain OR FINDINGS : The toe was removed completely at the MPJ so we did not have to take prox margin, we took post lavage culture third met head and we closed wound entirely, she can WB as tolerated with shoe on and she can follow up office in 2 weeks for suture removal No further OR planned ESTIMATED BLOOD LOSS: 20cc SPECIMENS: R 2nd toe to path, R foot post lavage, IMPLANTABLE DEVICES: none DRAINS: none COMPLICATIONS: none SURGERY/PROCEDURE DETAILS: INDICATIONS FOR PROCEDURE: The patient was seen in the hospital for worsening R 3rd toe infection and wound. Patient is noted to have had bone infection to the 3rd toe seen on imaging. Discussed conservative and surgical options. Discussed IV antibiotics and wound care vs amputation with patient. Discussed all risks and benefits of all options. All questions were answered. Patient elects to proceed with amputation. The patient had all risks, benefits, alternatives, and complications including, but not limited to infection, delayed healing, nonhealing, need for further surgery, or amputation discussed with the patient. No guarantees were given or implied. The patient agreed to proceed with procedure. DESCRIPTION OF PROCEDURE: Patient was seen in the preoperative holding area where the chart was reviewed and patient was examined and all questions were answered to patient's satisfaction. The patient was then transferred to the OR in the supine position. After administration of anesthesia, an additional 10mL of bupivacaine plain was injected in a digital block type fashion to patient's R 3rd toe. The operative foot and ankle were then prepped and draped in usual sterile fashion. next we applied a hemaclear ankle tourniquet to the RT ankle Attention was then directed to the R 3rd toe where a skin marker was utilized to draw out a dorsal racquet type incision encompassing the R 3rd toe including any ulceration and poor tissue for amputation. Incision was then carried out with a #15 blade down to the level of bone with all vital neurovascular structures retracted or cauterized as necessary. The operative toe was disarticulated at the level of the metatarsal phalangeal joint and was removed from the field as specimen, sent to path. Site was further examined. A 15 blade, pickups, and [place] elevator were utilized in order to assess the site for any signs of infection or abscess in multiple places deep to the level of fascia. A combination of a curette, pickups, #15 blade, and bone rongeur were utilized to perform sharp excisional nonselective debridement of the ulcer into level of BONE with removal of devitalized and necrotic tissue. post debridement measures 6 x 2 x 1 cm to level of bone. The remaining wound bed was healthy inappearance with appropriate bleeding. Next we did Incision and drainage third met head with using 15 lade incised to level bone along shaft dorsal and extended the incision 6cm proximal , we dissected in the dorasl medial and lateral and plantar plane in deep multiple areas and There was no abscess or purulent drainage noted proximal to metatarsal head. We cut the flexor and extensor tendons as proximal as possible with 15 blade. No signs of infection were present past level of met head post debridement Site was then flushed with copious amounts of normal sterile saline utilizing a pulse lavage. After this was done, clean instrumentation was swapped out along with clean gloves. Post lavage swab culture was obtained and bone biopsy of R 3rd met head was performed with rontiesha Primary Closure was then carefully performed with 3-0 Vicryl for buried deep closure, 4-0 vicryl for subQ and then 3-0 nylon for simple suture skin closure. The site was then dressed with Xeroform, 4 x 4s, Kerlix, and Roz wrap. There was prompt brisk hyperemic response noted to the amputation site skin edges. The patient was then transferred from the OR to PACU with vital signs stable and vascular status intac (more content not included)... Normal [facility] Renal function 2000 panelon 01-22-2024 Albumin [Mass/Vol] 3.5 g/dL Low 3.9-4.9 [facility] Comment on above: Order Comment: Geetha cortes Type: BLOOD SPECIMENOrdering Facility: [facility] Address: [address] [place] [address] Performed By: #### 1 9123-9, 94943-1 ####[facility]ORATORYCLIA [id number] [place] [address] [place] Anion gap [Moles/Vol] 8 mmol/L Low 9-18 [facility] Comment on above: Order Comment: Geetha cortes Type: BLOOD SPECIMENOrdering Facility: [facility] Address: [address] [place] [address] Performed By: #### 1 9123-9, 51981-8 ####[facility]ORATORYCLIA [id number] [place] [address] [place] Calcium [Mass/Vol] 8.4 mg/dL Low 8.5-10.2 [facility] Comment on above: Order Comment: Speci men Type: BLOOD SPECIMENOrdering Facility: [facility] Address: [address] [place] [address] Performed By: #### 1 9123-9, 06125-5 ####[facility] LABORATORYCLIA [id number] [place] [address] [place] Chloride [Moles/Vol] 103 mmol/L Normal 97-105 [facility] Comment on above: Order Comment: Speci men Type: BLOOD SPECIMENOrdering Facility: [facility] Address: [address] [place] [address] Performed By: #### 1 9123-9, 17675-8 ####[facility] LABORATORYCLIA [id number] [place] [address] [place] CO2 [Moles/Vol] 29 mmol/L Normal 22-30 [facility] Comment on above: Order Comment: Speci men Type: BLOOD SPECIMENOrdering Facility: [facility] Address: [address] [place] [address] Performed By: #### 1 9123-9, 72157-3 ####[facility] LABORATORYCLIA [id number] [place] [address] [place] Creatinine [Mass/Vol] 0.77 mg/dL Normal 0.58-0.96 [facility] Comment on above: Order Comment: Speci men Type: BLOOD SPECIMENOrdering Facility: [facility] Address: [address] [place] [address] Performed By: #### 1 9123-9, 04343-8 ####[facility] LABORATORYCLIA [id number] [address] Creatinine and Glomerular filtration rate.predicted panel (S/P/Bld) 90 mL/min/1.73m??? Normal >=60 [facility] Comment on above: Order Comment: Speci men Type: BLOOD SPECIMENOrdering Facility: [facility] Address: [address] [place] [address] Result Comment: Francoise mated Glomerular Filtration Rate (eGFR) is calculated using the 2020 CKD-EPI creatinine equation. This equation utilizes serum creatinine, sex, and age as parameters. The creatinine assay has traceable calibration to isotope dilution-mass spectrometry. Refer to KDIGO guidelines for clinical interpretation. In patients with unstable renal function, e.g. those with acute kidney injury, the eGFR may not accurately reflect actual GFR. Performed By: #### 1 9123-9, 20675-7 ####[facility] LABORATORYCLIA [id number] [place] [address] [place] Glucose [Mass/Vol] 154 mg/dL High 74-99 [facility] Comment on above: Order Comment: Geetha cortes Type: BLOOD SPECIMENOrdering Facility: [facility] Address: [address] [place] [address] Result Comment: The [place] [employer] (ADA) provides guidance for cutoff values for fasting glucose and random glucose. The ADA defines fasting as no caloric intake for at least 8 hours. Fasting plasma glucose results between 100 to 125 mg/dL indicate increased risk for diabetes (prediabetes). Fasting plasma glucose results greater than or equal to 126 mg/dL meet the criteria for diagnosis of diabetes. In the absence of unequivocal hyperglycemia, results should be confirmed by repeat testing. In a patient with classic symptoms of hyperglycemia or hyperglycemic crisis, random plasma glucose results greater than or equal to 200 mg/dL meet the criteria for diagnosis of diabetes. Reference: Standards of Medical Care in Diabetes 2016, [place] [employer]. Diabetes Care. 2016.39(Suppl 1). Performed By: #### 1 9123-9, 05279-5 ####[facility] LABORATORYCLIA [id number] [place] [id number] [place] Phosphate [Mass/Vol] 4.4 mg/dL Normal 2.7-4.8 [facility] Comment on above: Order Comment: Geetha cortes Type: BLOOD SPECIMENOrdering Facility: [facility] Address: [address] [id number] Performed By: #### 1 9123-9, 39078-6 ####SPIC[facility] LABORATORYCLIA [id number] [place] [address] [place] Potassium [Moles/Vol] 3.8 mmol/L Normal 3.7-5.1 [facility] Comment on above: Order Comment: Speci men Type: BLOOD SPECIMENOrdering Facility: [facility] Address: [address] [place] [address] Performed By: #### 1 9123-9, 80210-2 ####[facility] LABORATORYCLIA [id number] [address] [place] Sodium [Moles/Vol] 140 mmol/L Normal 136-144 [facility] Comment on above: Order Comment: Speci men Type: BLOOD SPECIMENOrdering Facility: [facility] Address: [address] [place] [address] Performed By: #### 1 9123-9, 38952-8 ####[facility] LABORATORYCLIA [id number] [address] [place] Urea nitrogen [Mass/Vol] 18 mg/dL Normal 7-21 [facility] Comment on above: Order Comment: Speci men Type: BLOOD SPECIMENOrdering Facility: [facility] Address: [address] [place] [address] Performed By: #### 1 9123-9, 11767-3 ####[facility] LABORATORYCLIA [id number] [address] [place] SURGICAL PATHOLOGYon 024 CASE REPORT Normal [facility] Comment on above: Order Comment: Speci men Type: TISSUE SPECIMENOrdering Facility: [facility] Address: [address] [place] [address] Result Comment: Surg [facility] Pathology Report Case: [id number] Authorizing Provider: Mike Holbrook DPM Collected: 01/22/2024 11:16 AM Ordering Location: [facility] Surgery Received: 01/22/2024 01:33 PM Pathologist: Spencer Dean MD Specimen: Digit, Right Foot, Third, right 3rd toe Performed By: #### S ####[facility] LABORATORYCLIA [id number] [place] [address] [place] AMERICASELECT MEDICAL [facility] LABCLIA [id number] [facility] [id number] STATES [place] CLINICAL HISTORY Normal [facility] Comment on above: Order Comment: Speci men Type: TISSUE SPECIMENOrdering Facility: [facility] Address: [address] [place] [address] Result Comment: Pre- op diagnosis: Osteomyelitis of right foot (HCC) [M86.9] Performed By: #### S ####[facility]OSPITALIA [id number] [place] [address] [facility] LABCLIA [id number] [address] OF [place] FINAL DIAGNOSIS [facility] Comment on above: Order Comment: Speci men Type: TISSUE SPECIMENOrdering Facility: [facility] Address: [address] [place] [address] Result Comment: Thir d digit, right foot, amputation: - Skin and soft tissue with hyperkeratosis and fibrosis. - Chronic osteomyelitis. Performed By: #### S ####[facility] HOSPITALIA [id number] [place] [id number] [facility] LABCLIA [id number] [address] FINAL PERFORMING LAB [facility] Comment on above: Order Comment: Speci men Type: TISSUE SPECIMENOrdering Facility: [facility] Address: [address] [place] [address] Result Comment: Diag nostic interpretation performed at [facility], [address] [place] [address] CLIA# [id number] Associate Professor Physician: Dallas Carpenter M.D. Performed By: #### S ####[facility]OSPITALIA [id number] [address] LABCLIA [id number] [address] OF [facility] GROSS DESCRIPTION [facility] Comment on above: Order Comment: Speci men Type: TISSUE SPECIMENOrdering Facility: [facility] Address: [address] [place] [address] Result Comment: Jolie Sammy tarangomaxim, Right Foot, Third Received in formalin labeled as "right third toe" is a toe with attached proximal bony margin measuring 5.5 x 2.5 x 2.0 cm. The distal aspect of the toe demonstrates a granular ulcerative area measuring 2.0 x 1.2 cm. The adjacent toenail is alanis-yellow and thickened. Group Underwriter cross-section is submitted in 1 cassette following decalcification. MLG January 22, 2024 4:30 PM Gross examination performed at [facility], [facility] [place] [address] Performed By: #### S ####[facility] LABORATORYCLIA [id number] [address] LABCLIA [id number] [place] [id number] [facility] 01-21-2024 ALL[facility] HNO ID: [id number] Author: GARETT HOFFMANN CT Service: Radiology Author Type: Technologist Type: Allied Health Filed: 01/21/2024 10:11 Note Text: Radiology Service Progress Note PATIENT NAME: Juana Handy DATE OF SERVICE: January 21, 2024 TIME: 10:10 AM PATIENT IDENTITY VERIFICATION COMPLETED USING TWO (2) IDENTIFIERS: Name and Date of confirmed by patient verbally and Name and Date of confirmed by identification band. FALL SCREENING: Has the patient had 2 falls in the last year or 1 fall with injury or currently using an Ambulatory Assistive Device (Walker, Cane, Wheelchair, Crutches, etc.)? Inpatient: Screened on floor PATIENT GENDER DATA: Female. status: : No status: NO. PATIENT RELEVANT IMPLANT DATA REVIEWED: Not Applicable PATIENT PRESENTS WITH AN IMPLANTABLE OR ATTACHED DIRECTOR OF PUPIL PERSONNEL PROGRAM: No RADIOLOGY DEPARTMENT: General X-ray: Exam(s) Completed: Chest X-Ray PERIPHERAL IV DATA: Not applicable SIGNED BY: LEELA Lopez January 21, 2024 10:10 AM Normal [facility] CBC W Auto Differential pane l (Bld)on 01-21-2024 Basophils (Bld) [#/Vol] 0.04 10*3/uL Normal <0.11 [facility] Comment on above: Order Comment: Speci men Type: BLOOD SPECIMENOrdering Facility: [facility] Address: [address] [place] [address] Performed By: #### 5 7021-8 ####SP[facility] LABORATORYCLIA [id number] [place] [address] [place] Basophils/100 WBC (Bld) 0.4 % Normal [facility] Comment on above: Order Comment: Speci men Type: BLOOD SPECIMENOrdering Facility: [facility] Address: [address] [place] [address] Performed By: #### 5 7021-8 ####SP[facility] LABORATORYCLIA [id number] [place] [address] [place] Differential cell count method Nom (Bld) Auto Normal [facility] Comment on above: Order Comment: Speci men Type: BLOOD SPECIMENOrdering Facility: [facility] Address: [address] [place] [address] Performed By: #### 5 7021-8 ####SPICER LABORATORYCLIA [id number] [place] [address] [place] Eosinophils (Bld) [#/Vol] 0.36 10*3/uL Normal <0.46 [facility] Comment on above: Order Comment: Speci men Type: BLOOD SPECIMENOrdering Facility: [facility] Address: [address] [place] [address] Performed By: #### 5 7021-8 ####SPIC[facility] LABORATORYCLIA [id number] [place] [address] [place] Eosinophils/100 WBC (Bld) 3.9 % Normal [facility] Comment on above: Order Comment: Speci men Type: BLOOD SPECIMENOrdering Facility: [facility] Address: [address] [place] [address] Performed By: #### 5 7021-8 ####[facility] LABORATORYCLIA [id number] [place] [address] [place] Erythrocyte distribution width (RBC) [Ratio] 13.1 % Normal 11.5-15.0 [facility] Comment on above: Order Comment: Speci men Type: BLOOD SPECIMENOrdering Facility: [facility] Address: [address] [place] [address] Performed By: #### 5 7021-8 ####[facility] LABORATORYCLIA [id number] [place] [address] [place] Hematocrit (Bld) [Volume fraction] 36.4 % Normal 36.0-46.0 [facility] Comment on above: Order Comment: Speci men Type: BLOOD SPECIMENOrdering Facility: [facility] Address: [address] [place] [address] Performed By: #### 5 7021-8 ####SPIC[facility] LABORATORYCLIA [id number] [place] [address] [place] Hemoglobin (Bld) [Mass/Vol] 11.9 g/dL Normal 11.5-15.5 [facility] Comment on above: Order Comment: Speci men Type: BLOOD SPECIMENOrdering Facility: [facility] Address: [address] [place] [address] Performed By: #### 5 7021-8 ####[facility] LABORATORYCLIA [id number] [place] [address] [place] Immature granulocytes (Bld) [#/Vol] 0.04 10*3/uL Normal <0.10 [facility] Comment on above: Order Comment: Speci men Type: BLOOD SPECIMENOrdering Facility: [facility] Address: [address] [place] [address] Performed By: #### 5 7021-8 ####SPIC[facility] LABORATORYCLIA [id number] [place] [address] [place] Immature granulocytes/100 WBC (Bld) 0.4 % Normal [facility] Comment on above: Order Comment: Speci men Type: BLOOD SPECIMENOrdering Facility: [facility] Address: [address] [place] [address] Performed By: #### 5 7021-8 ####SPIC[facility] LABORATORYCLIA [id number] [place] [address] [place] Lymphocytes (Bld) [#/Vol] 1.94 10*3/uL Normal 1.00-4.00 [facility] Comment on above: Order Comment: Speci men Type: BLOOD SPECIMENOrdering Facility: [facility] Address: [address] [place] [address] Performed By: #### 5 7021-8 ####SPICER LABORATORYCLIA [id number] [address] Lymphocytes/100 WBC (Bld) 21.0 % Normal [facility] Comment on above: Order Comment: Speci men Type: BLOOD SPECIMENOrdering Facility: [facility] Address: [address] [place] [address] Performed By: #### 5 7021-8 ####[facility] LABORATORYCLIA [id number] [address] MCH (RBC) [Entitic mass] 28.0 pg Normal 26.0-34.0 [facility] Comment on above: Order Comment: Speci men Type: BLOOD SPECIMENOrdering Facility: [facility] Address: [address] [place] [address] Performed By: #### 5 7021-8 ####SPICER LABORATORYCLIA [id number] [address] STATES [facility] MCHC (RBC) [Mass/Vol] 32.7 g/dL Normal 30.5-36.0 [facility] Comment on above: Order Comment: Speci men Type: BLOOD SPECIMENOrdering Facility: [facility] Address: [address] [place] [address] Performed By: #### 5 7021-8 ####[facility] LABORATORYCLIA [id number] [address] MCV (RBC) [Entitic vol] 85.6 fL Normal 80.0-100.0 [facility] Comment on above: Order Comment: Speci men Type: BLOOD SPECIMENOrdering Facility: [facility] Address: [address] [place] [address] Performed By: #### 5 7021-8 ####SPIC[facility] LABORATORYCLIA [id number] [address] Monocytes (Bld) [#/Vol] 0.78 10*3/uL Normal <0.87 [facility] Comment on above: Order Comment: Speci men Type: BLOOD SPECIMENOrdering Facility: [facility] Address: [address] [place] [address] Performed By: #### 5 7021-8 ####SPIC[facility] LABORATORYCLIA [id number] [place] [address] [place] Monocytes/100 WBC (Bld) 8.4 % Normal [facility] Comment on above: Order Comment: Speci men Type: BLOOD SPECIMENOrdering Facility: [facility] Address: [address] [place] [address] Performed By: #### 5 7021-8 ####SPICER LABORATORYCLIA [id number] [place] [address] [place] Neutrophils (Bld) [#/Vol] 6.10 10*3/uL Normal 1.45-7.50 [facility] Comment on above: Order Comment: Speci men Type: BLOOD SPECIMENOrdering Facility: [facility] Address: [address] [place] [address] Performed By: #### 5 7021-8 ####SPIC[facility] LABORATORYCLIA [id number] [place] [address] [place] Neutrophils/100 WBC (Bld) 65.9 % Normal [facility] Comment on above: Order Comment: Speci men Type: BLOOD SPECIMENOrdering Facility: [facility] Address: [address] [place] [address] Performed By: #### 5 7021-8 ####SPIC[facility] LABORATORYCLIA [id number] [place] [address] [place] Nucleated RBC (Bld) [#/Vol] 10*3/uL Normal <0.01 [facility] Comment on above: Order Comment: Speci men Type: BLOOD SPECIMENOrdering Facility: [facility] Address: [address] [place] [address] Performed By: #### 5 7021-8 ####SPICER LABORATORYCLIA [id number] [place] [address] [place] Nucleated RBC/100 WBC (Bld) [Ratio] 0.0 /100 WBC Normal [facility] Comment on above: Order Comment: Speci men Type: BLOOD SPECIMENOrdering Facility: [facility] Address: [address] [place] [address] Performed By: #### 5 7021-8 ####SPICER LABORATORYCLIA [id number] [place] [address] [place] Platelet mean volume (Bld) [Entitic vol] 10.0 fL Normal 9.0-12.7 [facility] Comment on above: Order Comment: Speci men Type: BLOOD SPECIMENOrdering Facility: [facility] Address: [address] [place] [address] Performed By: #### 5 7021-8 ####SPICER LABORATORYCLIA [id number] [place] [address] [place] Platelets (Bld) [#/Vol] 302 10*3/uL Normal 150-400 [facility] Comment on above: Order Comment: Speci men Type: BLOOD SPECIMENOrdering Facility: [facility] Address: [address] [place] [address] Performed By: #### 5 7021-8 ####SPICER LABORATORYCLIA [id number] [place] [address] [place] RBC (Bld) [#/Vol] 4.25 10*6/uL Normal 3.90-5.20 [facility] Comment on above: Order Comment: Speci men Type: BLOOD SPECIMENOrdering Facility: [facility] Address: [address] [place] [address] Performed By: #### 5 7021-8 ####SPICER LABORATORYCLIA [id number] [place] [address] [place] WBC (Bld) [#/Vol] 9.26 10*3/uL Normal 3.70-11.00 [facility] Comment on above: Order Comment: Speci men Type: BLOOD SPECIMENOrdering Facility: [facility] Address: [address] [place] [address] Performed By: #### 5 7021-8 ####SPICER LABORATORYCLIA [id number] [place] [address] [place] CK TOTAL AND CK-MBon 024 CK [Catalytic activity/Vol] 61 U/L Normal 42-196 [facility] Comment on above: Order Comment: Speci men Type: BLOOD SPECIMENOrdering Facility: [facility] Address: [address] [place] [address] Performed By: #### 1 9123-9, CKCKMB, 53622-7 ####SPICER LABORATORYCLIA [id number] [address] CK.MB [Mass/Vol] 2.1 ng/mL Normal <4.4 [facility] Comment on above: Order Comment: Speci men Type: BLOOD SPECIMENOrdering Facility: [facility] Address: [address] [place] [address] Performed By: #### 1 9123-9, CKCKMB, 21812-1 ####[facility] LABORATORYCLIA [id number] [address] CK.MB [Ratio] Normal [facility] Comment on above: Order Comment: Speci men Type: BLOOD SPECIMENOrdering Facility: [facility] Address: [address] [place] [address] Result Comment: CK M B % not reported with CK <100 U/L. Performed By: #### 1 9123-9, CKCKMB, 30386-0 ####[facility] LABORATORYCLIA [id number] [address] CONSULTon 01-21-2024 CONSULT HNO ID: [id number] Author: LAVELLE MERCADO MD Service: Infectious Disease Author Type: Physician Type: Consults Filed: 01/21/2024 21:43 Note Text: CONSULT: INFECTIOUS DISEASE SERVICE SERVICE DATE: 01/21/2024 SERVICE TIME: 12:31 PM REASON FOR CONSULT: Osteomyelitis distal phalanx right third toe REQUESTING PHYSICIAN: [facility] PRIMARY CARE PHYSICIAN: Arianna Rosales APRN.CORPORATE CONSULTANT Subjective Ms. Handy is a 58 year old diabetic female who presents with RT 3rd toe infection. She was seeing her primary doctor for RT 3rd toe pain and ingrowing nail. XR RT foot were taken and showed right 3rd toe distal tuft OM. Once XR RT foot results were in the patient was brought to ER in [place] for evaluation. She has no drainage, no chills, no fever, and no erythema from tipe of toe extending back just past the DIPJ. She was transferred to [facility] for antibiotics and podiatry evaluation. She denies N/V/F/C/SOB. She is diabetic, last A1c was 8.4 in July 2023. Podiatry following, planning OR tomorrow 01/21 for partial 3rd toe amputation with Dr Stanley. ID consulted for antibiotic management. Pt is currently on broad spectrum abx. Pt is currently on ceftriaxone + vancomycin PAST MEDICAL HISTORY Diagnosis Date Diabetes mellitus (HCC) Essential hypertension Fibromyalgia High cholesterol PAST SURGICAL HISTORY Procedure Laterality Date BACK SURGERY HX FAMILY HISTORY Problem Relation Age of Onset Diabetes Brother Social History Tobacco Use Smoking status: Never Smokeless tobacco: Never Vaping Use Vaping Use: Never used Substance Use Topics Alcohol use: Never Drug use: Never insulin glargine U-300 conc (TOUJEO MAX) 300 unit/mL (3 mL) inpn, Inject 30 Units subcutaneously daily at bedtime. (Patient taking differently: Inject 55 Units subcutaneously daily at bedtime.), Disp: 15 mL, Rfl: 2, 01/19/2024 atorvastatin (LIPITOR) 40 mg tablet, Take 1 tablet by mouth once daily., Disp: 90 tablet, Rfl: 1, 01/19/2024 lisinopril (ZESTRIL) 20 mg tablet, Take 1 tablet by mouth once daily., Disp: 90 tablet, Rfl: , 01/19/[address] (PROTONIX) 40 mg tablet, Take 1 tablet by mouth once daily., Disp: 90 tablet, Rfl: 1, 01/20/2024 metoprolol tartrate, short acting, (LOPRESSOR) 25 mg tablet, Take 1 tablet by mouth two times a day., Disp: 90 tablet, Rfl: 1, 01/19/2024 insulin lispro (HUMALOG KWIKPEN INSULIN) 100 unit/mL, Inject 25-30 Units subcutaneously three times a day before meals. If BS over 200 take 30 units. If BS is under 200 but greater than 150 take 25 units. (Patient taking differently: Inject 35 Units subcutaneously three times a day before meals. If BS over 200 take 30 units. If BS is under 200 but greater than 150 take 25 units.), Disp: 9 Each, Rfl: 0, 01/20/2024 gabapentin (NEURONTIN) 600 mg tablet, Take 1 tablet by mouth two times a day for 90 days. (Patient taking differently: Take 600 mg by mouth daily at bedtime.), Disp: 60 tablet, Rfl: 2, 01/19/2024 dapagliflozin propanediol (FARXIGA) 10 mg tablet, Take 1 tablet by mouth daily with breakfast., Disp: 30 tablet, Rfl: 2, 01/20/2024 MULTI-VITAMIN ORAL, Take 1 tablet by mouth once daily., Disp: , Rfl: , 01/20/2024 aspirin 81 mg chewable tablet, Take 81 mg by mouth., Disp: , Rfl: , 01/20/2024 OZEMPIC 1 mg/dose (4 mg/3 mL) pen, INJECT THE CONTENTS OF 1 PEN UNDER THE SKIN ONCE WEEKLY, Disp: , Rfl: , Unknown Lancets (ACCU-CHEK FASTCLIX LANCET DRUM) lancets, USE 1 LANCET TO CHECK BLOOD SUGAR THREE TIMES DAILY, Disp: 120 Each, Rfl: 2 albuterol HFA (PROAIR HFA) 90 mcg/actuation inhaler, Inhale 2 Puffs as instructed every 4 hours as needed for wheezing/shortness of breath., Disp: 1 Each, Rfl: 2, Unknown CPAP/BIPAP/OTHER, Type .CPAPSettings into a note to see current settings/supplies/DME information., Disp: 1 Each, Rfl: 0 blood sugar diagnostic test strip, Accu chek guide me test strips patient checks sugars 3 times daily Dx E11.42, Disp: 100 Each, Rfl: 1 Blood-Glucose Meter (ACCU-CHEK GUIDE ME GLUCOSE MTR), patient checks sugars 3 times daily Dx E11.42, Disp: 1 Each, Rfl: 0 Current Facility-Administered Medications Medication Dose Route Frequency NaCl 0.9% iv flush bag 20 mL INTRAVENOUS PRN gabapentin 600 mg tab(s) (NEURONTIN) 600 mg ORAL AT BEDTIME atorvastatin 40 mg tab(s) (LIPITOR) 40 mg ORAL AT BEDTIME lisinopril 20 mg tab(s) (ZESTRIL) 20 mg ORAL DAILY metoprolol tartrate (short acting) 25 mg tab(s) (LOPRESSOR) 25 mg ORAL BID aspirin 81 mg chewable tab(s) 81 mg ORAL DAILY pantoprazole DR 40 mg tab(s) (PROTONIX) 40 mg ORAL DAILY vancomycin 1.5 g in NaCl 0.9% 250 mL (VANCOCIN) 0.015 g/kg/dose INTRAVENOUS q 12 HR albuterol 2.5 mg /3 mL (0.083 %) 1.25 mg (PROVENTIL) 1.25 mg INHALATION TID acetaminophen 1,000 mg tab(s) (TYLENOL) 1,000 mg ORAL q 8 H PRN oxyCODONE IR 5 mg tab(s) (ROXICODONE) 5 mg ORAL q 3 H PRN oxyCODONE IR 10 mg tab(s) (ROXICODONE) 10 mg ORAL q 3 H PRN dextrose 40 % 15 g 15 g ORAL PRN Or gluc (more content not included)... Normal [facility] CONSULT HNO ID: [id number] Author: CODY GOMEZ DPM Service: Podiatry Author Type: Physician Type: Consults Filed: 01/21/2024 08:32 Note Text: CONSULT: POD SX SERVICE SERVICE DATE: 01/20/2024 SERVICE TIME: 10:03 PM REASON FOR CONSULT: RT 3rd toe OM REQUESTING PHYSICIAN: Dr Hurt PRIMARY CARE PHYSICIAN: Arianna Rosales APRN.CORPORATE CONSULTANT SUBJECTIVE Ms. Handy is a 58 year old diabetic female who presents with RT 3rd toe infection. She was seeing her primary doctor for RT 3rd toe pain and ingrowing nail. XR RT foot were taken and showed right 3rd toe distal tuft OM. Once XR RT foot results were in the patient was brought to ER in [place] for evaluation. She has no drainage, no chills, no fever, and no erythema from tipe of toe extending back just past the DIPJ. She was transferred to [facility] for antibiotics and podiatry evaluation. She denies N/V/F/C/SOB. She is diabetic, last A1c was 8.4 in July 2023. PAST MEDICAL HISTORY: PAST MEDICAL HISTORY Diagnosis Date Diabetes mellitus (HCC) Essential hypertension Fibromyalgia High cholesterol PAST SURGICAL HISTORY: PAST SURGICAL HISTORY Procedure Laterality Date BACK SURGERY HX FAMILY HISTORY: FAMILY HISTORY Problem Relation Age of Onset Diabetes Brother SOCIAL HISTORY: Social History Tobacco Use Smoking status: Never Smokeless tobacco: Never Vaping Use Vaping Use: Never used Substance Use Topics Alcohol use: Never Drug use: Never MEDICATIONS: Prior to Admission Medications: insulin glargine U-300 conc (TOUJEO MAX) 300 unit/mL (3 mL) inpn, Inject 30 Units subcutaneously daily at bedtime. (Patient taking differently: Inject 55 Units subcutaneously daily at bedtime.), Disp: 15 mL, Rfl: 2, 01/19/2024 atorvastatin (LIPITOR) 40 mg tablet, Take 1 tablet by mouth once daily., Disp: 90 tablet, Rfl: 1, 01/19/2024 lisinopril (ZESTRIL) 20 mg tablet, Take 1 tablet by mouth once daily., Disp: 90 tablet, Rfl: 1, 01/19/[address] (PROTONIX) 40 mg tablet, Take 1 tablet by mouth once daily., Disp: 90 tablet, Rfl: 1, 01/20/2024 metoprolol tartrate, short acting, (LOPRESSOR) 25 mg tablet, Take 1 tablet by mouth two times a day., Disp: 90 tablet, Rfl: 1, 01/19/2024 insulin lispro (HUMALOG KWIKPEN INSULIN) 100 unit/mL, Inject 25-30 Units subcutaneously three times a day before meals. If BS over 200 take 30 units. If BS is under 200 but greater than 150 take 25 units. (Patient taking differently: Inject 35 Units subcutaneously three times a day before meals. If BS over 200 take 30 units. If BS is under 200 but greater than 150 take 25 units.), Disp: 9 Each, Rfl: 0, 01/20/2024 gabapentin (NEURONTIN) 600 mg tablet, Take 1 tablet by mouth two times a day for 90 days. (Patient taking differently: Take 600 mg by mouth daily at bedtime.), Disp: 60 tablet, Rfl: 2, 01/19/2024 dapagliflozin propanediol (FARXIGA) 10 mg tablet, Take 1 tablet by mouth daily with breakfast., Disp: 30 tablet, Rfl: 2, 01/20/2024 MULTI-VITAMIN ORAL, Take 1 tablet by mouth once daily., Disp: , Rfl: , 01/20/2024 aspirin 81 mg chewable tablet, Take 81 mg by mouth., Disp: , Rfl: , 01/20/2024 OZEMPIC 1 mg/dose (4 mg/3 mL) pen, INJECT THE CONTENTS OF 1 PEN UNDER THE SKIN ONCE WEEKLY, Disp: , Rfl: , Unknown Lancets (ACCU-CHEK FASTCLIX LANCET DRUM) lancets, USE 1 LANCET TO CHECK BLOOD SUGAR THREE TIMES DAILY, Disp: 120 Each, Rfl: 2 albuterol HFA (PROAIR HFA) 90 mcg/actuation inhaler, Inhale 2 Puffs as instructed every 4 hours as needed for wheezing/shortness of breath., Disp: 1 Each, Rfl: 2, Unknown CPAP/BIPAP/OTHER, Type .CPAPSettings into a note to see current settings/supplies/DME information., Disp: 1 Each, Rfl: 0 blood sugar diagnostic test strip, Accu chek guide me test strips patient checks sugars 3 times daily Dx E11.42, Disp: 100 Each, Rfl: 1 Blood-Glucose Meter (ACCU-CHEK GUIDE ME GLUCOSE MTR), patient checks sugars 3 times daily Dx E11.42, Disp: 1 Each, Rfl: 0 Current Facility-Administered Medications Medication Dose Route Frequency NaCl 0.9% iv flush bag 20 mL INTRAVENOUS PRN gabapentin 600 mg tab(s) (NEURONTIN) 600 mg ORAL AT BEDTIME atorvastatin 40 mg tab(s) (LIPITOR) 40 mg ORAL AT BEDTIME lisinopril 20 mg tab(s) (ZESTRIL) 20 mg ORAL DAILY metoprolol tartrate (short acting) 25 mg tab(s) (LOPRESSOR) 25 mg ORAL BID aspirin 81 mg chewable tab(s) 81 mg ORAL DAILY pantoprazole DR 40 mg tab(s) (PROTONIX) 40 mg ORAL DAILY vancomycin 1.5 g in NaCl 0.9% 250 mL (VANCOCIN) 0.015 g/kg/dose INTRAVENOUS q 12 HR albuterol 2.5 mg /3 mL (0.083 %) 1.25 mg (PROVENTIL) 1.25 mg INHALATION TID acetaminophen 1,000 mg tab(s) (TYLENOL) 1,000 mg ORAL q 8 H PRN oxyCODONE IR 5 mg tab(s) (ROXICODONE) 5 mg ORAL q 3 H PRN oxyCODONE IR 10 mg tab(s) (ROXICODONE) 10 mg ORAL q 3 H PRN dextrose 40 % 15 g 15 g ORAL PRN Or glucagon 1 mg injection 1 mg INTRAMUSCULAR PRN Or dextrose 10% iv bolus 12.5 g INTRAVENOUS PRN insulin glargine 42 Units pen (long acting) 42 Un (more content not included)... [facility] CONSULT Krishan 01-21-2024 CONSULT HATTIE HERNANDEZO ID: [id number] Author: PRANAY SANTO RPh Service: Pharmacy Author Type: Pharmacist Type: Consult Progress Note Filed: 01/22/2024 13:06 Note Text: PHARMACY VANCOMYCIN DOSING NOTE Patient Name: Juana Handy Admission Date: 01/20/2024 Date of Consult: 01/20/2024 Time of Consult: 4:59 PM Indication: Bone AND joint infection Goal Range: 15-20 mcg/mL RECOMMENDATIONS/PLAN: Pharmacy consulted for vancomycin dosing for Juana Handy, a 58 year old female. 1. Patient is currently ordered Vancomycin 1.5 g IV q12h. Today is day 2 of therapy. Patient received first dose of vanco 1.5gm at [place] [facility] on 01/20/24. 2. No vancomycin level has been drawn for this dosing regimen. 3. The present dose of vancomycin is the recommended dosage for this patient at this time. Continue therapy as prescribed. 4. The next vancomycin level has been ordered for 01/21 (Completed) We will follow patient renal function, vancomycin levels and doses with you during the course of therapy. Additional recommendations will appear in follow up notes. If you have any questions, please contact pharmacy at [phone]. Age: [age] year old Allergies: ALLERGIES Allergen Reactions Lavender (Lavandula* Rash Metformin GI Upset Latex Rash Last 3 Encounter Wt Readings: Date: Wt: 01/20/2024 102.5 kg (225 lb 15.5 oz) 01/20/2024 100.7 kg (222 lb) 01/05/2024 100.2 kg (221 lb) Last 1 Encounter Ht Readings: Date: Ht: 01/20/2024 162.6 cm (5' 4") CrCl: 102 mL/min Temp (24hrs), Av.4 ?C (97.5 ?F), Min:36.4 ?C (97.5 ?F), Max:36.4 ?C (97.5 ?F) - Current Temp: 36.4 ?C (97.5 ?F) Labs BUN (mg/dL) Date Value 01/21/2024 16 01/20/2024 14 12/22/2022 9 Creatinine (mg/dL) Date Value 01/21/2024 0.70 01/20/2024 0.59 12/22/2022 0.72 WBC (k/uL) Date Value 01/21/2024 9.26 01/20/2024 7.36 01/20/2022 7.69 Vancomycin Levels: No results found for: "VANCORA" Damian Terrance, [facility] Normal [facility] ECHOon 01-21-2024 Echocardiography Echocardiography Rep ort: Transthoracic Echo [facility] Date of service: 01/21/2024 1:40:04 PM Ordering physician: CASH HURT Indication: SOB Technologist: Mirna Tena RDCS Interpreting physician: Riley Beckwith DO PATIENT: Name: JUANA HANDY : 1965 Age: 58 years Gender: F History of hypertension, diabetes mellitus and dyslipidemia. Primary rhythm: sinus. Height: 162.60 cm BSA: 2.15 m Weight: 102.50 kg BMI: 38.8 kg/m Heart rate 55 bpm Blood pressure 128/75 mmHg Color Doppler was utilized to interrogate the cardiac valves assessed and spectral Doppler was utilized to determine the flow velocities and pressure gradients reported in this exam. Myocardial strain analysis was performed in this exam to aid in the assessment of cardiac function. MEASUREMENTS: Value Indexed Normal Max aortic dimension 3.1 cm Ao < 3.8 Left atrium diameter 4.1 cm (2D) Left atrial volume 64 ml (biplane A-L) 30 ml/m Rush <= 34 LV ID (diastole) 4.8 cm (2D) 2.21 cm/m LV ID (systole) 2.5 cm (2D) 1.17 cm/m IVS, leaflet tips 1.2 cm (2D) Posterior wall thickness 1.0 cm (2D) Left ventricular mass 197 g (2D) 91 g/m Global peak long strain -18.8 % LV stroke volume 86 ml (2D biplane) LV end diastolic volume 127 ml (2D biplane) 59.0 ml/m 29<=EDVi<62 LV end systolic volume 41 ml (2D biplane) 18.9 ml/m Ejection Fraction 68 % (2D biplane) EF > 54 FINDINGS: LEFT VENTRICLE The left ventricle is normal in size. Left ventricular systolic function is normal. Global LV myocardial strain is normal. Normal left ventricular diastolic function. Mitral annular lateral E/e': 11.1. Mitral annular septal E/e': 11.6. Wall Motion: All scored segments are normal. RIGHT VENTRICLE The right ventricle is normal in size. Right ventricular systolic function is normal. RV systolic tissue Doppler velocity is 15.2 cm/s. Tricuspid annular displacement is 2.8 cm. Estimated right ventricular systolic pressure is likely underestimated due to a weak or incomplete tricuspid regurgitation signal and is, at least, 24 mmHg consistent with normal pulmonary artery pressures. Estimated right atrial pressure is 3 mmHg based on IVC assessment. LEFT ATRIUM The left atrial cavity is normal in size. Pulmonary Veins: The pulmonary venous pattern showed normal systolic flow. RIGHT ATRIUM The right atrial cavity is normal in size. Inferior Vena Cava: The inferior vena cava appears normal measuring 1.7 cm. The vessel decreases greater than 50 percent with inspiration. MITRAL VALVE There is mild mitral annular calcification observed posterior. There is trace mitral valve regurgitation. There is mild thickening. The pressure half time is 59 msec. The peak mitral E/A ratio is 1.13. The average mitral E/e' ratio is 11.3. The mitral flow deceleration time is 202 msec. TRICUSPID VALVE The tricuspid valve leaflets are structurally normal. There is trace (trace - 1+) tricuspid valve regurgitation. The hepatic venous pattern showed normal systolic flow. AORTIC VALVE There is no aortic valve regurgitation. Tricuspid aortic valve. There is mild calcification. The peak gradient is 12 mmHg (peak velocity = 175.0 cm/s). The LVOT diameter is 1.9 cm. PULMONIC VALVE The pulmonic valve was not seen or not interrogated. There is trace pulmonic valve regurgitation. AORTA The visualized aorta is normal in size. Measurements - Aortic valve annulus 1.9 cm. Mid ascending aorta 3.1 cm. INTERVENTRICULAR SEPTUM There is normal motion of the interventricular septum. CONCLUSIONS: - Exam indication: SOB - The left ventricle is normal in size. Left ventricular systolic function is normal. EF = 68 5% (2D biplane) Normal left ventricular diastolic function. - The right ventricle is normal in size. Right ventricular systolic function is normal. - There are no significant valvular abnormalities. - The patient has not had a prior CC echocardiographic exam for comparison. * * * Final * * * CC [facility] Medical Image : [id number] Normal [facility] Magnesium SerPl-ncon 01-20 Magnesium [Mass/Vol] 2.0 mg/dL Normal 1.7-2.3 [facility] Comment on above: Order Comment: Speci men Type: BLOOD SPECIMENOrdering Facility: [facility] Address: [address] [place] [address] Performed By: #### 1 9123-9, CKCKMB, 25241-6 ####SPICER LABORATORYCLIA [id number] [place] [address] [place] Renal function [facility] panelon 01-21-2024 Albumin [Mass/Vol] 3.6 g/dL Low 3.9-4.9 [facility] Comment on above: Order Comment: Speci men Type: BLOOD SPECIMENOrdering Facility: [facility] Address: [address] [place] [address] Performed By: #### 1 9123-9, CKCKMB, 51748-6 ####SPICER LABORATORYCLIA [id number] [place] [address] [place] Anion gap [Moles/Vol] 7 mmol/L Low 9-18 [facility] Comment on above: Order Comment: Speci men Type: BLOOD SPECIMENOrdering Facility: [facility] Address: [address] [place] [address] Performed By: #### 1 9123-9, CKCKMB, 54667-2 ####SPICER LABORATORYCLIA [id number] [place] [address] [place] Calcium [Mass/Vol] 8.8 mg/dL Normal 8.5-10.2 [facility] Comment on above: Order Comment: Speci men Type: BLOOD SPECIMENOrdering Facility: [facility] Address: [address] [place] [address] Performed By: #### 1 9123-9, CKCKMB, 33319-3 ####SPICER LABORATORYCLIA [id number] [address] STATES [facility] Chloride [Moles/Vol] 101 mmol/L Normal 97-105 [facility] Comment on above: Order Comment: Speci men Type: BLOOD SPECIMENOrdering Facility: [facility] Address: [address] [place] [address] Performed By: #### 1 9123-9, CKCKMB, 17294-9 ####SPICER LABORATORYCLIA [id number] [place] [address] [place] CO2 [Moles/Vol] 28 mmol/L Normal 22-30 [facility] Comment on above: Order Comment: Speci men Type: BLOOD SPECIMENOrdering Facility: [facility] Address: [address] [place] [address] Performed By: #### 1 9123-9, CKCKMB, 38546-6 ####SPICER LABORATORYCLIA [id number] [address] OF [facility] Creatinine [Mass/Vol] 0.70 mg/dL Normal 0.58-0.96 [facility] Comment on above: Order Comment: Speci men Type: BLOOD SPECIMENOrdering Facility: [facility] Address: [address] [place] [address] Performed By: #### 1 9123-9, CKCKMB, 34388-5 ####SPICER LABORATORYCLIA [id number] [address] Creatinine and Glomerular filtration rate.predicted panel (S/P/Bld) 100 mL/min/1.73m??? Normal >=60 [facility] Comment on above: Order Comment: Speci men Type: BLOOD SPECIMENOrdering Facility: [facility] Address: [address] [place] [address] Result Comment: Francoise mated Glomerular Filtration Rate (eGFR) is calculated using the 2020 CKD-EPI creatinine equation. This equation utilizes serum creatinine, sex, and age as parameters. The creatinine assay has traceable calibration to isotope dilution-mass spectrometry. Refer to KDIGO guidelines for clinical interpretation. In patients with unstable renal function, e.g. those with acute kidney injury, the eGFR may not accurately reflect actual GFR. Performed By: #### 1 9123-9, BOBBY, 23242-0 ####SPICER LABORATORYCLIA [id number] [place] [address] [place] Glucose [Mass/Vol] 176 mg/dL High 74-99 [facility] Comment on above: Order Comment: Geetha cortes Type: BLOOD SPECIMENOrdering Facility: [facility] Address: [address] [place] [address] Result Comment: The [place] [employer] (ADA) provides guidance for cutoff values for fasting glucose and random glucose. The ADA defines fasting as no caloric intake for at least 8 hours. Fasting plasma glucose results between 100 to 125 mg/dL indicate increased risk for diabetes (prediabetes). Fasting plasma glucose results greater than or equal to 126 mg/dL meet the criteria for diagnosis of diabetes. In the absence of unequivocal hyperglycemia, results should be confirmed by repeat testing. In a patient with classic symptoms of hyperglycemia or hyperglycemic crisis, random plasma glucose results greater than or equal to 200 mg/dL meet the criteria for diagnosis of diabetes. Reference: Standards of Medical Care in Diabetes 2016, [place] [employer]. Diabetes Care. 2016.39(Suppl 1). Performed By: #### 1 9123-9, BOBBY, 99761-6 ####SPICER LABORATORYCLIA [id number] [place] [id number] [place] Phosphate [Mass/Vol] 3.7 mg/dL Normal 2.7-4.8 [facility] Comment on above: Order Comment: Geetha cortes Type: BLOOD SPECIMENOrdering Facility: [facility] Address: [address] [place] [address] Performed By: #### 1 9123-9BOBBY, 27990-9 ####SPICER LABORATORYCLIA [id number] [place] [address] [place] Potassium [Moles/Vol] 4.1 mmol/L Normal 3.7-5.1 [facility] Comment on above: Order Comment: Geetha cortes Type: BLOOD SPECIMENOrdering Facility: [facility] Address: [address] [place] [address] Performed By: #### 1 9123-9, CKCKMB, 49824-1 ####SPICER LABORATORYCLIA [id number] [address] Sodium [Moles/Vol] 136 mmol/L Normal 136-144 [facility] Comment on above: Order Comment: Speci men Type: BLOOD SPECIMENOrdering Facility: [facility] Address: [address] [place] [address] Performed By: #### 1 9123-9, CKCKMB, 94145-1 ####SPICER LABORATORYCLIA [id number] [address] [place] Urea nitrogen [Mass/Vol] 16 mg/dL Normal 7-21 [facility] Comment on above: Order Comment: Speci men Type: BLOOD SPECIMENOrdering Facility: [facility] Address: [address] [place] [address] Performed By: #### 1 9123-9, CKCKMB, 64458-8 ####SPICER LABORATORYCLIA [id number] [address] [place] XR CHEST 2V FRONTAL/LATon XR CHEST 2V FRONTAL/LAT * * *Final Report* * * DATE OF EXAM: Jan 21 2024 10:11AM MDX 5291 - XR CHEST 2V FRONTAL/LAT / PROCEDURE REASON: Shortness of breath * * * * Physician Interpretation * * * * EXAMINATION: CHEST RADIOGRAPH (2 VIEW FRONTAL and LATERAL) CLINICAL HISTORY: Shortness of breath MQ: XC2_6 EXAM DATE/TIME: 01/21/2024 10:11 AM COMPARISON: 01/19/2023 RESULT: Lines, tubes, and devices: None. Lungs and pleura: No consolidation. Thin linear density in the lingula secondary to scarring or atelectasis. No pleural effusion. No pneumothorax. Cardiomediastinal silhouette: Normal cardiomediastinal silhouette. Bones and soft tissues: Lower cervical intervertebral fusions. IMPRESSION: No acute lung consolidation. Thin linear density in the lingula secondary to scarring or atelectasis. Vallez Filter Operator: PSCB Transcribe Date/Time: Jan 21 2024 11:05A Dictated by : Keena JORDAN MD This examination was interpreted and the report reviewed and electronically signed by: Keena JORDAN MD on Jan 21 2024 11:12AM EST [id number] Normal [facility] aPTT PPPon 01-21-2024 aPTT Coag (PPP) [Time] 29.3 s Normal 23.0-32.4 [facility] Comment on above: Order Comment: Speci men Type: BLOOD SPECIMENOrdering Facility: [facility] Address: [address] [place] [address] Performed By: #### 1 4979-9 ####[place] LABORATORYCLIA [id number] [place] [address] [facility] CNPNon 01-20-2024 CNPN Telephone (FVPRAD) JUANA HANDY V ([id number]) 1965 F Date Time Provider Department 01/20/24 KARUNA VANCE FVWILBER During your visit today, we recorded the following information about you: Karuna Vance MD 01/20/2024 1:16 PM Signed Transfer request from [place] [facility]: Reason for transfer: Rt third toe osteomyelitis. 58 year old F with hx of T1DM on insulin who presented to [place] ED with right third toe wound for few weeks. Pt was recently finished course of oral antibiotics. Vitals stable. Labs unremarkable. Xray right foot showed Rt third toe osteomyelitis. Pt is started on vanco and ceftriaxone in the ED. Transfer center cannot reach Dr. Holbrook at this point and left . Pt is accepted to [facility]. Karuna Vance MD Allergies As of Date: 01/20/2024 Noted Allergy Reaction LAVENDER (LAVANDULA ANGUSTIFOLIA) 01/06/2022 2 - Rash METFORMIN 01/06/2022 8 - GI Upset LATEX 09/29/2017 2 - Rash Date Reviewed: 01/20/2024 Reviewed by: Gaby Pichardo, RN - Fully Assessed Reason for Visit: Hospital To Hospital [[id number]] Prescriptions as of 01/20/2024 - OZEMPIC 1 mg/dose (4 mg/3 mL) pen INJECT THE CONTENTS OF 1 PEN UNDER THE SKIN ONCE WEEKLY - insulin glargine U-300 conc (TOUJEO MAX) 300 unit/mL (3 mL) inpn Inject 30 Units subcutaneously daily at bedtime. - atorvastatin (LIPITOR) 40 mg tablet Take 1 tablet by mouth once daily. - lisinopril (ZESTRIL) 20 mg tablet Take 1 tablet by mouth once daily. - pantoprazole DR (PROTONIX) 40 mg tablet Take 1 tablet by mouth once daily. - metoprolol tartrate, short acting, (LOPRESSOR) 25 mg tablet Take 1 tablet by mouth two times a day. - Lancets (ACCU-CHEK FASTCLIX LANCET DRUM) lancets USE 1 LANCET TO CHECK BLOOD SUGAR THREE TIMES DAILY - albuterol HFA (PROAIR HFA) 90 mcg/actuation inhaler Inhale 2 Puffs as instructed every 4 hours as needed for wheezing/shortness of breath. - insulin lispro (HUMALOG KWIKPEN INSULIN) 100 unit/mL Inject 25-30 Units subcutaneously three times a day before meals. If BS over 200 take 30 units. If BS is under 200 but greater than 150 take 25 units. - gabapentin (NEURONTIN) 600 mg tablet Take 1 tablet by mouth two times a day for 90 days. - CPAP/BIPAP/OTHER Type .CPAPSettings into a note to see current settings/supplies/DME information. - dapagliflozin propanediol (FARXIGA) 10 mg tablet Take 1 tablet by mouth daily with breakfast. - blood sugar diagnostic test strip Accu chek guide me test strips patient checks sugars 3 times daily Dx E11.42 - MULTI-VITAMIN ORAL Take 1 tablet by mouth once daily. - Blood-Glucose Meter (ACCU-CHEK GUIDE ME GLUCOSE MTR) patient checks sugars 3 times daily Dx E11.42 - aspirin 81 mg chewable tablet Take 81 mg by mouth. Problem List As Of Date 01/20/2024 Noted Resolved Obesity, Class II, BMI 35-39.9 [E66.9] 12/11/2021 Lung nodule [R91.1] 05/22/2020 Pain in both lower extremities [M79.604, M79.60*12/11/2021 Pneumonia due to severe acute respiratory syndr*12/11/2021 Anxiety [F41.9] 02/29/2020 Chest pain [R07.9] 12/11/2021 Chronic bilateral low back pain [M54.50, G89.29]11/02/2019 Chronic thoracic spine pain [M54.6, G89.29] 11/02/2019 Class 3 severe obesity with serious comorbidity*10/06/2018 03/23/2023 Dental caries [K02.9] 12/15/2020 Fibromyalgia [M79.7] 05/15/2017 Gastroesophageal reflux disease [K21.9] 05/10/2019 Hyperglycemia [R73.9] 12/11/2021 Hyperlipidemia, mixed [E78.2] 08/18/2018 Hypertension, essential [I10] 08/18/2018 Hypokalemia [E87.6] 12/11/2021 Lightheadedness [R42] 12/11/2021 Degenerative disc disease, cervical [M50.30] 12/17/2018 Mixed anxiety depressive disorder [F41.8] 11/22/2019 Neuropathy [G62.9] 12/11/2021 Neuropathy involving both lower extremities [G5*11/26/2017 Neuropathy of lower extremity [G57.90] 11/26/2017 Pain [R52] 12/11/2021 Painful mouth [K13.79] 12/15/2020 Primary osteoarthritis of both knees [M17.0] 12/11/2021 Pulmonary nodule, left [R91.1] 05/22/2020 History of cervical spinal arthrodesis [Z98.1] 05/26/2018 History of lumbar fusion [Z98.1] 12/11/2021 Spinal stenosis of lumbar region without neurog*11/04/2017 Type 2 diabetes mellitus without complication, *05/05/2018 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] 12/11/2021 Uncontrolled type 2 diabetes mellitus [PCW2752] 11/26/2017 Swelling of toe of right foot [M79.89] 01/17/2024 Cellulitis of toe of right foot [L03.031] 01/17/2024 Encounter Status:Closed by KARUNA VANCE on 01/20/24 [facility] CONSULT PROGon 01-20-2024 CONSULT PROG HNO ID: [id number] Author: DAMIAN OJEDA RPh Service: Pharmacy Author Type: Pharmacist Type: Consult Progress Note Filed: 01/20/2024 17:06 Note Text: PHARMACY VANCOMYCIN DOSING NOTE Patient Name: Juana Handy Admission Date: 01/20/2024 Date of Consult: 01/20/2024 Time of Consult: 4:59 PM Indication: Bone AND joint infection Goal Range: 15-20 mcg/mL RECOMMENDATIONS/PLAN: Pharmacy consulted for vancomycin dosing for Juana Handy, a 58 year old female. 1. Patient is currently ordered Vancomycin 1.5 g IV q12h. Today is day 1 of therapy. Patient received first dose of vanco 1.5gm at [place] [facility] on 01/20/24. 2. No vancomycin level has been drawn for this dosing regimen. 3. The present dose of vancomycin is the recommended dosage for this patient at this time. Continue therapy as prescribed. 4. The next vancomycin level will be ordered for 01/21 unless clinically indicated sooner. (Pharmacy will order) We will follow patient renal function, vancomycin levels and doses with you during the course of therapy. Additional recommendations will appear in follow up notes. If you have any questions, please contact pharmacy at [phone]. Age: [age] year old Allergies: ALLERGIES Allergen Reactions Lavender (Lavandula* Rash Metformin GI Upset Latex Rash Last 3 Encounter Wt Readings: Date: Wt: 01/20/2024 102.5 kg (225 lb 15.5 oz) 01/20/2024 100.7 kg (222 lb) 01/05/2024 100.2 kg (221 lb) Last 1 Encounter Ht Readings: Date: Ht: 01/20/2024 162.6 cm (5' 4") CrCl: 121.1 mL/min Temp (24hrs), Av.4 ?C (97.5 ?F), Min:36.4 ?C (97.5 ?F), Max:36.4 ?C (97.5 ?F) - Current Temp: 36.4 ?C (97.5 ?F) Labs BUN (mg/dL) Date Value 01/20/2024 14 12/22/2022 9 01/20/2022 15 Creatinine (mg/dL) Date Value 01/20/2024 0.59 12/22/2022 0.72 01/20/2022 0.68 WBC (k/uL) Date Value 01/20/2024 7.36 01/20/2022 7.69 Vancomycin Levels: No results found for: "VANCORA" Damian Ojeda [facility] CRP SerPl-mCncon 01-20-2024 CRP [Mass/Vol] 0.7 mg/dL Normal <0.9 [facility] Comment on above: Order Comment: Speci men Type: BLOOD SPECIMENOrdering Facility: [facility] Address: [address] [place] [address] Performed By: #### 3 3762-6, 1988-5, 23890-2, 3084-1 ####[facility] LOD LABCLIA [id number] [place] [address] [facility] ECG COMPLETEon 01-20-2024 ECG COMPLETE Ventricular Rate : 6 5 BPM Atrial Rate : 65 BPM P-R Interval : 164 ms QRS Duration : 82 ms Q-T Interval : 422 ms QTC Calculation(Bazett) : 438 ms Calculated P Addison : 49 degrees Calculated R Addison : 13 degrees Calculated T Addison : 43 degrees NORMAL SINUS RHYTHM NORMAL ECG NO PREVIOUS ECGS AVAILABLE Confirmed by MD BECKWITH GREGORY () on 01/21/2024 8:03:20 AM NAME : JUANA HANDY PID : [id number] : 1965 Gender : Female Race : ORD : [id number] Procedure Date : Jan 20 2024 18:18:36 Edit Date : Jan 21 2024 08:03:22 Diagnosis: NORMAL SINUS RHYTHM NORMAL ECG NO PREVIOUS ECGS AVAILABLE Confirmed by MD BECKWITH GREGORY () on 01/21/2024 8:03:20 AM Test Reason : Pre-OP Location : 4 : 2S 0222 Overread By : MD BECKWITH GREGORY Edited By : MD BECKWITH GREGORY Referred By : DAMARIS SPICER Acquired by : Rodney sesay [facility] HISTORY PHYSICALon HISTORY PHYSICAL HNO ID: [id number] Author: CASH HURT MD Service: Hospital Medicine Author Type: Physician Type: H&P Filed: 01/21/2024 10:23 Note Text: DEPARTMENT OF HOSPITAL MEDICINE HISTORY AND PHYSICAL EXAM SERVICE DATE: 01/21/2024 SERVICE TIME: 7:24 AM Hospital Medicine/Primary Attending: Cash Hurt MD NIGHT AND WEEKEND COVERAGE: [place] COVERAGE: Nights: [phone], please page [facility] Night coverage pager [phone]. Admission date: 01/20/2024 MEDICAL DECISION MAKING Reason for Admission: Cellulitis surrounding osteomyelitis to the of the distal tip of the distal phalanx of the right middle toe and a diabetic with moderate glucose control Reviewed notes: Interpreted labs: Interpreted imaging indpendently: Interpreted EKG independently: See EKG interpretation below. ASSESSMENT/PLAN Dr. Hess notified and Dr. Gomez will see tomorrow Patient with occasional nocturnal dyspnea waking up short of breath for exam it looks like it is probably postnasal drip as she has what appears to be an allergic sinusitis with uvular edema. However she does have an aortic stenosis murmur paradoxically split S2. Her EKG is normal getting echocardiogram as important though this is likely to require much anesthesia with her diabetic neuropathy. 1 month pain and right third toe. Initially to be ingrown toenail in retrospect was probably trauma with her diabetic neuropathy. Full code Principal Problem: Osteomyelitis (HCC) Active Problems: Paroxysmal nocturnal dyspnea Diabetic polyneuropathy associated with type 2 diabetes mellitus (HCC) Type 2 diabetes mellitus without complication, with long-term current use of insulin (HCC) Overview: Last Assessment AND Plan: Patient states her blood sugars have been running high (200's). She was instructed to take her full dose of long acting insulin the night before surgery and to hold short acting insulin and oral diabetic medication day of surgery. Undiagnosed cardiac murmurs Overview: Most likely aortic stenosis or aortic sclerosis-she does have paradoxically split S2 but normal EKG Hypertension, essential Overview: Last Assessment AND Plan: Per primary care provider. As discussed within your appointment, your blood pressure is 143/93. I would like you to continue to take medications as ordered, and increase activity as tolerated (goal is 150 minutes of cardiovascular activity weekly), I would also like you to reduce salt intake as this can cause fluid retention, and eat a heart healthy diet. Continue to monitor blood pressure at home in the morning upon awakening and in the evening prior to going to bed. Bring blood pressure log and cuff to your next visit. Your goal blood pressure is to be between 90/60 - 140/90. Obesity, Class II, BMI 35-39.9 Spinal stenosis of lumbar region without neurogenic claudication Resolved Problems: * No resolved hospital problems. * Consultants: Dr. Gomez for podiatry Dr. Mercado for infectious disease PROCEDURES: NONE Disposition: To be determined EK01/21/2024 sinus rhythm normal EKG no prior Echocardiogram: None Beta natruretic peptide 56 (low) Recent Labs 01/21/2453001/20/24 1118 CK 61 -- MCV 85.6 86.9 MCH 28.0 28.7 MPV 10.0 10.0 Recent Labs 01/21/2453001/20/24 1118 WBC 9.26 7.36 RBC 4.25 4.35 HB 11.9 12.5 HCT 36.4 37.8 PLT 302 284 MCV 85.6 86.9 MCH 28.0 28.7 MPV 10.0 10.0 ABSNEUT 6.10 4.60 NEUTP 65.9 62.5 LYMPHP 21.0 26.0 MONOP 8.4 7.7 EODINP 3.9 3.1 Recent Labs 01/21/2453001/20/24 1118 GLUC 176* 288* NA 136 136 K 4.1 4.4 CHLOR 101 101 CO2 CREAT 0.70 0.59 BUN 16 14 ANION 7* 11 CA 8.8 9.3 TPROT -- 7.9 ALB 3.6* 4.0 TBILI -- 0.5 ALKPHOS -- 99 AST -- 13 ALT -- 11 Recent Labs 01/21/2453001/20/24 1847 APTT 29.3 -- INR -- <0.9* Recent Labs 01/20/24 1118 CRP 0.7 Recent Labs 01/21/2453001/20/24 2000 01/20/24 1725 01/20/24 1501 01/20/24 1118 GLUC 176* -- -- -- 288* PCGLUCOSE -- 238* 249* 233* -- Recent Labs 01/20/24 1118 LACT 1.9 Hemoglobin A1C (%) Date Value 07/15/2023 8.4 06/13/2023 9.03 12/22/2022 9.5 08/28/2022 11.6 01/20/2022 12.6 Hemoglobin A1C (POCT) (%) Date Value 03/23/2023 10.4 Most recent labs Last 14 BP Last 14 Encounter BP Readings: Date: BP: 01/20/2024 184/88 01/20/2024 178/84 01/05/2024 124/72 10/08/2023 122/70 06/29/2023 124/76 03/23/2023 114/66 01/19/2023 145/74 12/22/2022 122/70 09/29/2022 126/70 04/21/2022 120/72 03/04/2022 124/78 12/10/2021 132/82 11/11/2021 160/80 HOSPITAL COURSE: Juana Handy is a 58 year old female presented with past medical history of primary hypertension, high cholesterol, poorly controlled diabetes, 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 Normal [facility] NT-proBNP Hector-Lilian 01-19 Natriuretic peptide.B prohormone N-Terminal [Mass/Vol] 56 pg/mL Normal <125 [facility] Comment on above: Order Comment: Speci men Type: BLOOD SPECIMENOrdering Facility: [facility] Address: [address] [place] [address] Performed By: #### 3 3762-6, 1988-5, 17920-5, 3084-1 ####[facility] [id number] [place] [address] [place] PT panel Coag (PPP)on 2023 INR Coag (PPP) [Relative time] {INR} Low 0.9-1.3 [facility] Comment on above: Order Comment: Speci men Type: BLOOD SPECIMENOrdering Facility: [facility] Address: [address] [place] [address] Result Comment: Jazz min K Antagonist (VKA) Therapeutic Range: INR 2 to 3 (Target INR of 2.5) Note: For patients treated with VKA drugs, such as warfarin, the [place] [employer] 2012 Guideline recommends a therapeutic INR range of 2 to 3 (target INR of 2.5). This recommendation includes high-risk patients with antiphospholipid syndrome with previous arterial or venous thromboembolism, current-generation mechanical or bioprosthetic aortic heart valve replacement. Note: Patients with mechanical aortic valve replacement and additional risk factors for thromboembolic events (atrial fibrillation, previous thromboembolism, LV dysfunction, hypercoagulable conditions) or an older generation mechanical AVR (i.e., ball in-Cage) or any mechanical MVR should have a INR therapeutic range of 2.5 to 3.5 (target INR of 3). Geovani MURRELL, et al. Chest 2012, 141:7S-47S Lizandro SHEPPARD et al. [facility] 2017, 70: 252-289 Performed By: #### 3 4528-0 ####[facility] [id number] [place] [address] [place] PT Coag (PPP) [Time] 10.0 s Normal 9.7-13.0 [facility] Comment on above: Order Comment: Geetha cortes Type: BLOOD SPECIMENOrdering Facility: [facility] Address: [address] [place] [address] Result Comment: Samp le checked for clot. Performed By: #### 3 4528-0 ####[facility] [id number] [address] [place] Procalcitonin SerPl-mCncon 0 01-20-2024 Procalcitonin [Mass/Vol] ng/mL Normal <0.09 [facility] Comment on above: Order Comment: Geetha cortes Type: BLOOD SPECIMENOrdering Facility: [facility] Address: [address] [place] [address] Result Comment: For a guided interpretation of test results, please visit the Change in Procalcitonin Calculator, [email or web address]. Performed By: #### 3 3762-6, 1987-5, 72475-9, 3084-1 ####[facility] [id number] [place] [address] [place] URINALYSIS, REFLEX MICROSCOP ICon 01-20-2024 Bilirubin Ql (U) Negative Normal Negative [facility] Comment on above: Order Comment: Speci men Type: URINE SPECIMENOrdering Facility: [facility] Address: [address] [place] [address] Performed By: #### L [id number] ####[facility] [id number] [address] [place] Clarity (Unsp spec) Clear Normal Clear [facility] Comment on above: Order Comment: Speci men Type: URINE SPECIMENOrdering Facility: [facility] Address: [address] [place] [address] Performed By: #### L [id number] ####[facility]ORY[facility] [id number] [address] Color (U) Yellow Normal Yellow [facility] Comment on above: Order Comment: Speci men Type: URINE SPECIMENOrdering Facility: [facility] Address: [address] [place] [address] Performed By: #### L [id number] ####[facility] [id number] [address] Glucose Test strip (U) [Mass/Vol] 3+ Abnormal Negative [facility] Comment on above: Order Comment: Speci men Type: URINE SPECIMENOrdering Facility: [facility] Address: [address] [place] [address] Performed By: #### L [id number] ####[facility]ORY[facility] [id number] [place] [address] [place] Hemoglobin Ql (U) Negative Normal Negative [facility] Comment on above: Order Comment: Speci men Type: URINE SPECIMENOrdering Facility: [facility] Address: [address] [place] [address] Performed By: #### L [id number] ####[facility]ORYCLIA [id number] [place] [address] [place] Ketones Ql (U) Negative Normal Negative [facility] Comment on above: Order Comment: Speci men Type: URINE SPECIMENOrdering Facility: [facility] Address: [address] [place] [address] Performed By: #### L [id number] ####[facility] [id number] [address] Leukocyte esterase Test strip Ql (U) Negative Normal Negative [facility] Comment on above: Order Comment: Speci men Type: URINE SPECIMENOrdering Facility: [facility] Address: [address] [place] [address] Performed By: #### L [id number] ####[facility]ORY[facility] [id number] [address] [place] Nitrite Ql (U) Negative Normal Negative [facility] Comment on above: Order Comment: Speci men Type: URINE SPECIMENOrdering Facility: [facility] Address: [address] [place] [address] Performed By: #### L [id number] ####[facility]ORYCLIA [id number] [place] [address] [place] pH (U) 7.5 [pH] Normal 5.0-8.0 [facility] Comment on above: Order Comment: Speci men Type: URINE SPECIMENOrdering Facility: [facility] Address: [address] [place] [address] Performed By: #### L [id number] ####[facility]ORYCL[facility] [id number] [place] [address] [place] Protein (U) [Mass/Vol] Negative Normal Negative [facility] Comment on above: Order Comment: Speci men Type: URINE SPECIMENOrdering Facility: [facility] Address: [address] [place] [address] Performed By: #### L [id number] ####[facility]ORYCLIA [id number] [place] [address] [place] Specific gravity (U) [Rel density] 1.015 Normal 1.005-1.03 0 [facility] Comment on above: Order Comment: Speci men Type: URINE SPECIMENOrdering Facility: [facility] Address: [address] [place], [place] [address] Performed By: #### L [id number] ####[facility]ORATORYCLIA [id number] [place] [id number] [facility] Urobilinogen Ql (U) 0.2 EU/dL Normal 0.2-1.0 EU/dL [facility] Comment on above: Order Comment: Speci men Type: URINE SPECIMENOrdering Facility: [facility] Address: [address] [place] [address] Performed By: #### L [id number] ####[facility]ATORYCLIA [id number] [place] [id number] [facility] Urate SerPl-mCncon 4 Urate [Mass/Vol] 4.0 mg/dL Normal 2.5-6.6 [facility] Comment on above: Order Comment: Speci men Type: BLOOD SPECIMENOrdering Facility: [facility] Address: [address] [place] [address] Performed By: #### 3 3762-6, 1988-5, 80076-9, 3084-1 ####[facility] LABCLIA [id number] [address] XR Toes - right 3 ViewsOrder ed By: Ccf Provider on 01-09-2024 Interpretation and review of laboratory results Abnormal [facility] Radiology Result ACTIONABLE Abnormal [facility] Comment on above: This report contains an incidental or actionable finding. This finding may be a new finding separate from the reason your provider ordered the imaging test or it may be an already known finding that needs additional or continued follow-up. Because of this incidental or actionable finding, you may need another test (imaging or a different type of test). Please contact your provider for the next steps. [facility] XR Toes - right 3 [place] IMPRESSION: OSTEOMYELITIS OF THE DISTAL PHALANX OF THE THIRD DIGIT OF THE RIGHT FOOT ACTIONABLE RESULT: FOLLOW-UP Acuity: Findings: Recommendation: Time Frame: COMMUNICATION: Results will be communicated with the ordering provider via The [employer] staff message or phone message by Imaging Support Services within 2 business days of report finalization. --END OF FINDING-- Vallez Filter Operator: ELENA Transcribe Date/Time: Jan 09 2024 12:19P Dictated by : CHARLES VALE MD This examination was interpreted and the report reviewed and electronically signed by: CHARLES VALE MD on Jan 09 2024 12:22PM EST [facility] * * *Final Report* * * DATE OF EXAM: Jan 05 2024 3:13PM LDX 5269 - XR TOE 3V AP/LAT/OBL RT / PROCEDURE REASON: Swelling of toe of right foot * * * * Physician Interpretation * * * * HISTORY: 58-YEAR-OLD FEMALE WITH Swelling of toe of right foot . Ingrown toe nail of 3rd toe right foot, now sore under tip of toe, swelling/redness TECHNIQUE: XR TOE 3V AP/LAT/OBL RT Laterality: RIGHT Number of different views (projections): 3 COMPARISON: 05/26/2022. RESULT: Third digit of the right foot: L only complete view of the third digit as on the AP view. There is partial visualization of the third digit on the oblique and lateral view. There is a lytic lesion of the tuft of distal phalanx and third digit with displacement of the bony fragments of the tuft and soft tissue swelling. This findings consistent with changes of osteomyelitis. The third metatarsal, proximal and middle phalanx disease are intact. [facility] Provider, [facility] - 01/09/2024 * * *Final Report* * * DATE OF EXAM: Jan 05 2024 3:13PM LDX 5269 - XR TOE 3V AP/LAT/OBL RT / PROCEDURE REASON: Swelling of toe of right foot * * * * Physician Interpretation * * * * HISTORY: 58-YEAR-OLD FEMALE WITH Swelling of toe of right foot . Ingrown toe nail of 3rd toe right foot, now sore under tip of toe, swelling/redness TECHNIQUE: XR TOE 3V AP/LAT/OBL RT Laterality: RIGHT Number of different views (projections): 3 COMPARISON: 05/26/2022. RESULT: Third digit of the right foot: L only complete view of the third digit as on the AP view. There is partial visualization of the third digit on the oblique and lateral view. There is a lytic lesion of the tuft of distal phalanx and third digit with displacement of the bony fragments of the tuft and soft tissue swelling. This findings consistent with changes of osteomyelitis. The third metatarsal, proximal and middle phalanx disease are intact. IMPRESSION IMPRESSION: OSTEOMYELITIS OF THE DISTAL PHALANX OF THE THIRD DIGIT OF THE RIGHT FOOT ACTIONABLE RESULT: FOLLOW-UP Acuity: Findings: Recommendation: Time Frame: COMMUNICATION: Results will be communicated with the ordering provider via [employer] staff message or phone message by Imaging Support Services within 2 business days of report finalization. --END OF FINDING-- Vallez Filter Operator: PSCB Transcribe Date/Time: Jan 09 2024 12:19P Dictated by : CHARLES VALE MD This examination was interpreted and the report reviewed and electronically signed by: CHARLES VALE MD on Jan 09 2024 12:22PM EST [facility] XR Toes - right 3 [place] Radiology Study observation (narrative) [facility] Endocrinology Visit Reporton 12-30-2023 Endocrinology Visit Report [facility] [address] [facility] [address] [place] [address] OFFICE VISIT Date of Service: 12/30/23 MR#: [id number] Acct: [id number] Name: JUANA HANDY V Rep #: [id number] : 1965 Provider: JHONNY mart Age/Sex: 58/F [place] [facility] [place] Status: Signed with Addenda ADDENDUM by JHONNY Leslie on 02/18/24 at 1717 HPI Details: JUANA HANDY, is a 58 F who presents to the office today for Assessment and Plan Assessment and Plan (1) Diabetes: Status: Chronic Qualifiers: Diabetes mellitus type: type 2 Diabetes mellitus correction insulin use: with correction use Diabetes mellitus complication status: with hyperglycemia Qualified Code(s): E11.65 - Type 2 diabetes mellitus with hyperglycemia; Z79.4 - skilled nursing (current) use of insulin (2) Neuropathy: Status: Chronic Plan: The patient would benefit by wearing diabetic shoes and inserts (3) Obesity: Status: Chronic Qualifiers: Obesity type: due to excess calories Obesity classification: adult class 2 (BMI 35 - 39.9) Serious obesity comorbidity presence: with serious comorbidity Body mass index: BMI 37.0-37.9 Qualified Code(s): E66.01 - Morbid (severe) obesity due to excess calories; Z68.37 - Body mass index [BMI] 37.0-37.9, adult Orders: Orders POC A1C 12/30/23 E11.9 - Type 2 diabetes mellitus without complications Thyroid Stim Hormone (TSH) 12/30/23 E11.65 - Type 2 diabetes mellitus with hyperglycemia, E66.9 - Obesity, unspecified, Z79.4 - terminal gauger (current) use of insulin Lipid Profile 12/30/23 E11.65 - Type 2 diabetes mellitus with hyperglycemia, E66.9 - Obesity, unspecified, Z79.4 - skilled nursing (current) use of insulin Comprehensive Metabolic Profil 12/30/23 E11.9 - Type 2 diabetes mellitus without complications, E66.9 - Obesity, unspecified Microalb:Creat Ratio,Random UR 12/30/23 E11.9 - Type 2 diabetes mellitus without complications, E66.9 - Obesity, unspecified Medications: New semaglutide (Ozempic) 1 mg (0.75 mL) subcut QWEEK 3 mL 5RF E11.9 - Type 2 diabetes mellitus without complications blood sugar diagnostic (Accu-Chek Guide test strips) TID 100 ea 5RF E11.9 - Type 2 diabetes mellitus without complications Changed From dapagliflozin propanediol PO E11.9 - Type 2 diabetes mellitus without complications To dapagliflozin propanediol (Farxiga) 10 mg PO DAILY 30 tabs 1RF E11.9 - Type 2 diabetes mellitus without complications From insulin lispro 30 units subcut QAC E11.9 - Type 2 diabetes mellitus without complications To insulin lispro 50 units (0.5 mL) subcut TID 15 mL 5RF E11.9 - Type 2 diabetes mellitus without complications Discontinued semaglutide Discontinued Reason: Order Changed subcut Plan Details Follow Up: 4 Weeks 02/18/24 910 Date Shelby Leslie NP-C cc: QUALITY TECHNICIANDavid Rosales * Signed Intake Vital Signs 07/28/23 19:50 12/30/23 14:16 Height 5 ft 4 in 5 ft 4 in Weight: 223 lb BMI 38.2 BP 127/79 H Blood Pressure Location Lt brachial Position Sitting Pulse 77 Pulse Source Monitor Temp 98.4 F Temp Source Temporal Pulse Oximetry (%) 96 Oxygen Delivery Method room air Intake Visit Reasons: 5 M FU, RS 10/19 Chief Complaint: f/u diabetes Logistics Engineering Manager Required: No Allergies Latex, Natural Rubber Allergy (Intermediate, Verified 11/05/23 14:37) Rash lavender (Lavandula angustifolia) Allergy (Mild, Verified 11/05/23 14:37) Hives metformin Allergy (Mild, Verified 11/05/23 14:37) rash Medications albuterol sulfate 90 mcg/actuation aerosol inhaler inhalation 03/20/23 [History Confirmed 12/30/23] aspirin 81 mg tablet,delayed release (Adult Low Dose Aspirin) 81 mg PO DAILY 03/20/23 [History Confirmed 12/30/23] atorvastatin 40 mg tablet mg PO 03/20/23 [History Confirmed 12/30/23] gabapentin 600 mg tablet mg PO 03/20/23 [History Confirmed 12/30/23] lisinopril 20 mg tablet mg PO 03/20/23 [History Confirmed 12/30/23] metoprolol tartrate 25 mg tablet mg PO 03/20/23 [History Confirmed 12/30/23] multivitamin (Daily Multi-Vitamin tablet) 1 tab PO DAILY 03/20/23 [History Confirmed 12/30/23] pantoprazole 40 mg tablet,delayed release mg PO 03/20/23 [History Confirmed 12/30/23] insulin glargine 100 unit/mL (3 mL) subcutaneous pen (Lantus Solostar U-100 Insulin) 50 unit subcut QHS 07/15/23 [History Confirmed 12/30/23] amoxicillin 875 mg-potassium clavulanate 125 mg tablet 1 tab PO BID 7 days #14 tabs 07/28/23 [Rx Confirmed 12/30/23] blood sugar diagnostic (Accu-Chek Guide test strips) #100 ea 12/30/23 [Rx Confirmed 12/30/23] dapagliflozin propanediol 10 mg tablet (Farxiga) 10 mg PO DAILY #30 tabs 12/30/23 [Rx Confirmed 12/30/23] insulin lispro 100 unit/mL subcutaneous pen 50 unit (0.5 mL) subcut TID (more content not included)... Normal [facility] HbA1c (Bld)on 12-30-2023 HbA1c (Bld) [Mass fraction] 10.1 % Abnormal 4.0 - 6.0 % [facility] Interpretation and review of laboratory results Abnormal [facility] Emergency Department Summary on 07-28-2023 Emergency Department Summary [facility] Medical Records Department [address] [address] Emergency Department Summary 07/28/23 MR#: [id number] Acct: [id number] Name: JUANA HANDY V Rep #: [id number] : 1965 58 From: Musa Szymanski MD PCP: JHONNY Toth Status:DEP ER Location: ED HPI History of Present Illness Chief Complaint: Bite Narrative Narrative: Patient's cat bit her on the right palm 2 days ago because it did not like being bathed in the bathtub. She has 2 small puncture wounds and yesterday became red. No fever or chills. No difficulty moving the extremity, no weakness or paresthesias. She is a type II diabetic on oral and insulin regimens. [facility] Medical History (Updated 07/28/23 @ 20:32 by MAGED Molina) Arthritis Degenerative disk disease Diabetes Fibromyalgia Hypercholesteremia Sleep apnea Home Medications albuterol sulfate 90 mcg/actuation aerosol inhaler inhalation 03/20/23 [History Last Taken Unknown] aspirin 81 mg tablet,delayed release (Adult Low Dose Aspirin) 81 mg PO DAILY 03/20/23 [History Last Taken Unknown] atorvastatin 40 mg tablet mg PO 03/20/23 [History Last Taken Unknown] gabapentin 600 mg tablet mg PO 03/20/23 [History Last Taken Unknown] lisinopril 20 mg tablet mg PO 03/20/23 [History Last Taken Unknown] metoprolol tartrate 25 mg tablet mg PO 03/20/23 [History Last Taken Unknown] multivitamin (Daily Multi-Vitamin tablet) 1 tab PO DAILY 03/20/23 [History Last Taken Unknown] pantoprazole 40 mg tablet,delayed release mg PO 03/20/23 [History Last Taken Unknown] semaglutide 0.25 mg or 0.5 mg (2 mg/3 mL) subcutaneous pen injector (Ozempic) mg subcut 03/20/23 [History Last Taken Unknown] dapagliflozin propanediol 10 mg tablet (Farxiga) mg PO 06/03/23 [History Last Taken Unknown] insulin glargine 100 unit/mL (3 mL) subcutaneous pen (Lantus Solostar U-100 Insulin) 50 unit subcut QHS 07/15/23 [History Last Taken Unknown] insulin lispro 100 unit/mL subcutaneous pen 30 unit subcut QA 07/15/23 [History Last Taken Unknown] amoxicillin 875 mg-potassium clavulanate 125 mg tablet 1 tab PO BID 7 days #14 tabs 07/28/23 [Rx Last Taken Unknown] Allergy/AdvReac Type Severity Reaction Status Date / Time Latex, Natural Rubber Allergy Intermediate Rash Verified 07/28/23 19:57 lavender (Lavandula Allergy Mild Hives Verified 07/28/23 19:57 angustifolia) metformin Allergy Mild rash Verified 07/28/23 19:57 Surgical History History of back surgery History of fusion of cervical spine History of lumbar fusion Social History Smoking Status: Never smoker alcohol intake: never substance use type: does not use ROS ROS ED ROS Narrative Constitutional: Negative for fever, chills, malaise. GI: Negative for nausea, vomiting. Neuro: Negative for motor/sensory dysfunction. Skin: Positive for wound. EXAM Physical Exam Narrative Exam Narrative: CONST: Patient sitting in no acute distress. EYES: Normal inspection. NECK: Normal inspection. RESP: No respiratory distress, CTAB. CVS: Regular rate and rhythm, no murmur, no gallop. SKIN: 2 puncture wounds with scab right palm on hypothenar eminence with surrounding cellulitis. The cellulitis does not go past the wrist joint. The more medial puncture wound has slight yellow pus visible under the skin. No crepitus or lymphangitis. Full ROM of wrist and hand, normal motor and sensory function median radial ulnar distributions, 2+ radial pulse and brisk cap refill. NEURO: Oriented x4. PSYCH: Normal affect. Const Vital Signs: 07/28/23 19:50 07/28/23 19:54 Temperature 98.2 F 98.2 F Temperature Source Temporal Oral Pulse Rate 77 77 Respiratory Rate 15 15 Blood Pressure 150/97 H 150/97 H Blood Pressure Mean 114 114 Pulse Ox 97 97 Oxygen Delivery Method Room Air Room Air Physical Exam Const Vital Signs: 07/28/23 19:50 07/28/23 19:54 Temperature 98.2 F 98.2 F Temperature Source Temporal Oral Pulse Rate 77 77 Respiratory Rate 15 15 Blood Pressure 150/97 H 150/97 H Blood Pressure Mean 114 114 Pulse Ox 97 97 Oxygen Delivery Method Room Air Room Air PROC Procedures Other Procedures Procedure(s): The 2 cat bite sites were anesthetized with 1% lidocaine by local filtration. Using a 10 blade 1 cm laceration was made over each bite site. Blunt dissection was undertaken with purulent material noted. Approximately 1/2 to 1 cc of. Material each cavity. MDM MDM MDM Narrative Medical decision making narrative: History gathered from: Patient and daughter Patient has infected cat bite on her right palm. I remove the scabs with an 18-gauge needle and there is purulent material. I (more content not included)... Normal [facility] Endocrinology Visit Reporton 07-15-2023 Endocrinology Visit Report [facility] [address] [facility] [facility] [address] [place] [address] OFFICE VISIT Date of Service: 07/15/23 MR#: [id number] Acct: [id number] Name: JUANA HANDY V Rep #: [id number] : 1965 Provider: JHONNY mart Age/Sex: 58/F [place] [facility] [place] Status: Signed Intake Vital Signs 03/20/23 13:07 07/15/23 11:10 Height 5 ft 4 in 5 ft 4 in Weight: 217 lb 8 oz BMI 37.3 BP 146/82 H Blood Pressure Location Rt brachial Position Sitting Respiration 16 Pulse 74 Pulse Source Monitor Temp 98.0 F Temp Source Temporal Pulse Oximetry (%) 96 Oxygen Delivery Method room air Intake Visit Reasons: Diabetes Chief Complaint: establish care- diabetes Logistics Engineering Manager Required: No Accompanied by: Daughter Is patient in pain?: Yes (Chronic pain - back and neuropathy in feet) Allergies Latex, Natural Rubber Allergy (Intermediate, Verified 07/15/23 11:17) Rash lavender (Lavandula angustifolia) Allergy (Mild, Verified 07/15/23 11:17) Hives metformin Allergy (Mild, Verified 07/15/23 11:17) rash Nurse's Note: Room 3 [facility] Medical History (Updated 07/15/23 @ 12:31 by Shelby Leslie NP-C) Arthritis Degenerative disk disease Diabetes Fibromyalgia Hypercholesteremia Sleep apnea Surgical History History of back surgery History of fusion of cervical spine History of lumbar fusion Social History Smoking Status: Never smoker alcohol intake: never substance use type: does not use HPI HPI Chief Complaint: establish care- diabetes Details: JUANA HANDY, is a 58 F who presents to the office today for evaluation and management of diabetes. Referred by PCP for uncontrolled diabetes. Additionally, she requires surgery on her back and unable to proceed until A1C <7.0%. Diagnosed with diabetes in 2016 during hospital admission for unrelated issue. + family history. Complications include neuropathy to bilateral lower extremities. She is not checking her blood sugars routinely. Reports that she is strict with her carbs and adheres to 45 grams/meal. A1C today is 8.4%, improved from 12/22/22 at 9.5%. Currently taking Ozempic 0.5 mg qweek- tolerating fair, Lantus 50 u once daily, Humalog 30 u TIDCM, and Farxiga 10 mg once daily. Denies any episodes/symptoms of hypoglycemia. Labs are up to date with PCP. Denies any acute concerns. Exam Const General: cooperative, comfortable, no acute distress and ill appearing chronically Nutritional Appearance: obese Orientation: alert, awake and oriented x3 HENMT Head: normal to inspection Ears: hearing grossly normal bilaterally Nose: external nose normal Face and sinus: normal facial exam Eyes General: appearance normal, both eyes and all related structures Alignment and Position: alignment normal Sclera: sclerae normal Neck Neck: normal visual inspection Carotids: normal carotid upstroke Chest Chest palpation inspection: normal inspection of the chest Resp Effort Inspection: normal respiratory effort, able to speak in complete sentences, symmetric chest movement, normal respiratory pattern, no audible wheezes and no cough Auscultation: Bilateral: Clear to Auscultation Cardio Rate: regular rate Rhythm: regular rhythm Heart Sounds: S1 normal and S2 normal Bruits: no carotid bruits GI Inspection: normal to inspection and obesity Musc Cervical Spine: normal cervical lordosis Thoracic/Lumbar Spine: thoracic and lumbar spine normal to inspection Skin General: no rashes or lesions noted Lesions: no lesions Rashes: no rashes Trauma: no lacerations or abrasions Wounds: no wounds Neuro General: patient alert, patient awake and patient oriented x3 Cognition: normal cognition Speech: speech normal Gait: normal gait Extrem General: normal to inspection and pedal edema Psych Appearance: grossly normal Mental Status: mental status grossly normal Mood: congruent mood Affect: normal affect Speech and Movement: speech and movement normal Attitude: cooperative Thought Process: normal Thought Content: normal Judgment: judgment good Coding Level of Care Code Off vis,new,level 5 Diagnoses Type 2 diabetes mellitus with hyperglycemia, with long-term current use of insulin E11.65; Z79.4 Diabetes mellitus type: type 2 Diabetes mellitus correction insulin use: with terminal block assembler use Diabetes mellitus complication status: with hyperglycemia Neuropathy G62.9 Class 2 severe obesity due to excess calories with serious comorbidity and body mass index (BMI) of 37.0 to 37.9 in adult E66.01; Z68.37 Obesity type: due to excess calories Obesity classification: adult class 2 (BMI 35 - 39.9) Serious obes (more content not included)... Normal [facility] HbA1c (Bld)on 07-15-2023 HbA1c (Bld) [Mass fraction] 8.4 % Abnormal 4 - 6 % [facility] Spine Lumbar (Routine)on Spine Lumbar (Routine) [facility] Imaging Services [address] [place] [address] Spine Lumbar (Routine) MR#: [id number] Acct: [id number] Name: JUANA HANDY V Rep #: [id number] : 1965 F 58 From: Ada Degroot MD PCP: DAVID ROSALES Status: DEP CLI Study: Spine Lumbar (Routine) Date of Exam: 06/25/23 Exam# [id number] Ordering Dr: Yann Hawley DO -[id number] INDICATION: pain, HX PREV SURGERY X 2 EXAMINATION: MRI - MR Spine Lumbar W/O Contrast TECHNIQUE: Multiplanar and multisequence MR images of the lumbar spine. IV Contrast Dosage and Agent: None. COMPARISON: Lumbar spine radiograph March 20, 2023. FINDINGS: VERTEBRAE: Normal bone marrow signal. No fracture or compression deformity. No aggressive osseous lesion. Preserved lumbar lordosis with mild degenerative grade 1 retrolisthesis L2 on L3. . Prior L4-L5 laminectomy with bilateral transpedicular Internal fixation of hardware failure CORD: Conus medullaris at L1. Imaged portion of the cord is normal signal. Cauda equina layer dependently.. L1/L2: Normal disc height and morphology. Normal spinal canal, lateral recesses and neuroforamina. L2/L3: Disc height loss with small broad-based posterior disc protrusion and mild ligamentum flavum hypertrophy causing mild spinal canal stenosis, moderate bilateral recess narrowing with disc osteophyte in the L3 nerve rootlets, and mild bilateral neural foraminal stenosis.. L3/L4: Small broad-based posterior disc bulge with moderate bilateral ligamentum flavum hypertrophy and facet arthropathy together causing mild spinal canal stenosis, mild lateral recess narrowing, and mild bilateral foraminal stenosis.. L4/L5: No gross disc herniation. Normal spinal canal, lateral recesses and neuroforamina. L5/S1: Normal disc height and morphology. Normal spinal canal, lateral recesses and neuroforamina. SOFT TISSUES: Unremarkable. MRI/Spine Lumbar (Routine) IMPRESSION: Prior laminectomy and posterior transpedicular fixation L4-L5. Small posterior disc herniation L2-3 and L3-4 with ligamentum flavum and facet hypertrophy causing mild spinal canal stenosis at both levels and moderate bilateral lateral recess narrowing at L2-3 with disc likely abutting L3 nerve rootlets. Mild multilevel neural foraminal stenosis. Electronically Signed: Ada Degroot MD at 6:32 EDT , CC: DAVID ROSALES; Dr. Yann Hawley DO Vallez Filter Operator: Signed Normal [facility] Spine Thoracic (Routine)on Spine Thoracic (Routine) [facility] Services [address] [place] [address] Spine Thoracic (Routine) MR#: [id number] Acct: [id number] Name: JUANA HANDY V Rep #: [id number] : 1965 F 58 From: Ada Degroot MD PCP: DAVID ROSALES Status: DEP CLI Study: Spine Thoracic (Routine) Date of Exam: Exam# [id number] Ordering Dr: Yann Hawley DO -[id number] INDICATION: pain, EXAMINATION: MRI - MR Spine Thoracic W/O Contrast TECHNIQUE: Multiplanar and multisequence MR images of the thoracic spine. IV Contrast Dosage and Agent: None. COMPARISON: None. FINDINGS: VERTEBRAE: No fracture. No acute compression deformity. Mild chronic anterior height loss in the midthoracic spine with slightly exaggerated kyphosis. No listhesis. Mild diffuse chronic endplate degenerative change.. No aggressive osseous lesion. Small intraosseous hemangioma at T1. Intraosseous hemangioma versus acute degenerative change at right inferior T2 endplate.. DISCS: Lower cervical posterior disc protrusions with mild spinal canal narrowing. T1-T2: Small broad-based posterior disc protrusion with mild spinal canal stenosis without significant neural foraminal narrowing. T2-T3: Small posterior central disc protrusion with mild spinal canal stenosis without significant neural foraminal narrowing. T4-T5: Slight broad-based posterior disc protrusion with mild spinal canal stenosis without significant neural foraminal narrowing. T6-T7: Small left central posterior disc protrusion with mild spinal canal stenosis, slightly effacing anterior cord without compression. No significant neural foraminal narrowing. T7-T8: Small right central to subarticular posterior disc protrusion with mild spinal canal stenosis, effacing the right anterior cord without compression. T8-T9: Small posterior central disc protrusion with minimal spinal canal narrowing, slightly effacing the anterior left cord without compression. No significant neural foraminal stenosis. CORD: Unremarkable in signal and morphology. No expansile mass. No abnormal epidural fluid collection. SOFT TISSUES: Unremarkable. MRI/Spine Thoracic (Routine) IMPRESSION: Small multilevel posterior disc protrusions slightly effacing the left anterior cord at T6-T7, right anterior cord at T7-T8, and left anterior cord at T8-T9 without cord compression Mild diffuse chronic endplate degenerative changes. . No acute osseous finding. Electronically Signed: Ada Degroot MD at 5:26 EDT , CC: DAVID ROSALES; Dr. Yann Hawley DO Vallez Filter Operator: Signed Normal [facility] HbA1c (Bld)on 06-13-2023 HbA1c (Bld) [Mass fraction] 9.03 % Abnormal 4 - 6 % [facility] Orthopedic Visit Reporton Orthopedic Visit Report [facility] [address] [place] [address] [address] [place] [address] OFFICE VISIT Date of Service: 06/03/23 MR#: [id number] Acct: [id number] Name: JUANA HANDY V Rep #: [id number] : 1965 Provider: Dr. Yann walden DO Age/Sex: 58/F Location: [facility] [place] Status: Signed Intake Vital Signs 03/20/23 13:07 Height 5 ft 4 in Weight: 213 lb BMI 36.6 Intake Visit Reasons: LUMBAR SPINE Chief Complaint: lumbar spine Is patient in pain?: Yes (right mid/ low back ) Pain scale (1-10): 10 Allergies Latex, Natural Rubber Allergy (Intermediate, Verified 06/03/23 13:35) Rash lavender (Lavandula angustifolia) Allergy (Mild, Verified 06/03/23 13:35) Hives metformin Allergy (Mild, Verified 06/03/23 13:35) rash Medications albuterol sulfate 90 mcg/actuation aerosol inhaler inhalation 03/20/23 [History Confirmed 03/20/23] aspirin 81 mg tablet,delayed release (Adult Low Dose Aspirin) 81 mg PO DAILY 03/20/23 [History Confirmed 03/20/23] atorvastatin 40 mg tablet mg PO 03/20/23 [History Confirmed 03/20/23] gabapentin 600 mg tablet mg PO 03/20/23 [History Confirmed 03/20/23] insulin glargine 100 unit/mL (3 mL) subcutaneous pen (Lantus Solostar U-100 Insulin) unit subcut 03/20/23 [History Confirmed 03/20/23] insulin lispro 100 unit/mL subcutaneous pen subcut 03/20/23 [History Confirmed 03/20/23] lisinopril 20 mg tablet mg PO 03/20/23 [History Confirmed 03/20/23] metoprolol tartrate 25 mg tablet mg PO 03/20/23 [History Confirmed 03/20/23] multivitamin (Daily Multi-Vitamin tablet) 1 tab PO DAILY 03/20/23 [History Confirmed 03/20/23] pantoprazole 40 mg tablet,delayed release mg PO 03/20/23 [History Confirmed 03/20/23] semaglutide 0.25 mg or 0.5 mg (2 mg/3 mL) subcutaneous pen injector (Ozempic) mg subcut 03/20/23 [History Confirmed 03/20/23] dapagliflozin propanediol 10 mg tablet (Farxiga) mg PO 06/03/23 [History Confirmed 06/03/23] [facility] Medical History Arthritis Degenerative disk disease Diabetes Fibromyalgia Hypercholesteremia Sleep apnea Surgical History History of back surgery History of fusion of cervical spine History of lumbar fusion Social History Smoking Status: Never smoker HPI LUMBAR SPINE Chief Complaint: low back pain Details: Parts of this documentation were recorded by a scribe, this documentation accurately reflects the service provided and the decisions made by me, Dr. Yann Hawley, 06/03/23 1690. JUANA HANDY is a 58 year old F here today for low back pain. She states her right mid to low back are extremely painful today and rates her pain 10/10. She states it occasionally radiates down her right leg. She states she has completed her PT/ aquatherapy which was mildly helpful while in the pool and intensity returns as soon as she gets out. Juana returns for follow-up. Is having severe pain now in the mid to lower thoracic region and goes off to the right side. She states that she has never had pain this bad before. Therapy did not help her thoracic spine neither did it help the lumbar spine even though she went for 4 weeks. At this point time I think we can now order the MRI scan of the lumbar spine and one of the thoracic spine as therapy has failed both areas. I will see her again as soon as the MRIs are done. Coding Level of Care Code Off vis,est,level 3 Diagnoses DDD (degenerative disc disease), lumbar M51.36 S/P lumbar fusion Z98.1 DDD (degenerative disc disease), thoracic M51.34 Time Spent (min) 20 Assessment and Plan Assessment and Plan (1) DDD (degenerative disc disease), lumbar: Status: Acute (2) S/P lumbar fusion: Status: Acute (3) DDD (degenerative disc disease), thoracic: Status: Acute Orders: Orders Spine Thoracic (Routine) Today M51.36 - Other intervertebral disc degeneration, lumbar region, Z98.1 - Arthrodesis status Spine Lumbar (Routine) Today M51.36 - Other intervertebral disc degeneration, lumbar region 06/03/23 1405 Date Yann Johnson Signature: Date (if applicable) CC: Normal [facility] PT D/C Summary (1)on 023 PT D/C Summary (1) [facility] Physical Therapy [facility] [place] [address] / REHABILITATION SERVICES DISCHARGE SUMMARY MR#: [id number] Acct: [id number] Name: JUANA HANDY V Rep #: [id number] : 1965 57 From: Galindo Spears PT, Cert. MD [place], OCS Referring Dr.: Dr. Yann Hawley DO Status: DI S RCR Insurance: [facility] COMPLETE MEDICAID Discharge Summary D/C summary: It has been my pleasure to treat JUANA HANDY referred by Dr. Yann Hawley DO, with the diagnosis of POSTLAMINECTOMY SYNDROME ,SPONDYLOSIS WITHOUT MYELOPATHY OR RADICULOPATHY for a total of 8 visit(s). Discharge Date: 05/01/23 Please see the following information for a summary of their discharge status. Subjective Subjective: Pain is about same .RTD to try for MRI Pain Bilateral Back: Pain Intensity (Out of 10): 8 Overall Improvement % Improvement: 10 Objective Objective/Function: Objective: POSTURE: mild forward posture knee valgus ,pes planus GAIT: mild forward posture slow minna antalgic gait each side NEURO: c/o paresthesia/tingling in feet SYMMTRIES: align LUMBAR ROM: flexion mod loss ,extension severe loss ,side glides mod loss pain MMT: quads/hams 4-/5 ,hip flexion 4-/5 ,hip abduction 3+/5 ,ankle 4/5 Goals Goal 1:: I with Aquatic therapy program Goal Progress: Goal Met Goal 2:: Patient to improve lumbar ROM for function of recovery to put on shoes Goal Progress: Progressing Goal 3:: Patient to demonstrate 40% improvement with less pain and improved function. Goal Progress: Progressing Goal 4:: Patient to improve back oswestry by 5 points to improve function/QOL Goal Progress: Progressing Goal 5:: Patient improve strength by 4/5 to improve gait with less antalgic gait. Goal Progress: Progressing Plan Plan: RTD FOR POSSIBLE D/C Information d/c sentence: If there are questions or concerns regarding this patient's physical therapy, please feel free to call me at [phone]. Thank you for the referral of this patient. Sincerely, Galindo Spears, PT, Cert MDT, OCS Balance/Gait/Functional tests Balance/Special Test Scores Oswestry Low Back Score: 35 05/01/23 1332 CC: Dr. Yann Hawley DO JLA Signed Normal [facility] DIAG [place] BILATERALon 04-16-2023 [facility] Inital Evaluation (1) - PTon 04-01-2023 Inital Evaluation (1) - PT [facility] [address] [place] [address] / REHABILITATION SERVICES INITIAL EVALUATION MR#: [id number] Acct: [id number] Name: JUANA HANDY V Rep #: [id number] : 1965 57 From: Galindo Spears PT, Cert. MD [place], OCS Referring Dr.: Dr. Yann Hawley DO Status: DI S R Insurance: [facility] COMPLETE MEDICAID Patient's Visit Information Visit Information Visit Information: JUANA HANDY is a 57 year old F referred to Physical Therapy by Dr. Yann Hawley DO with a diagnosis of POSTLAMINECTOMY SYNDROME ,SPONDYLOSIS WITHOUT MYELOPATHY OR RADICULOPATHY. Date of Evaluation: 04/01/23 Physical Therapist: Galindo Spears, PT, Cert T, OCS Visit Plan Frequency: 2x /Week Duration: 4 Weeks Plan: PT INTERVETIONS AQUATIC THERAPY FOR LUMBAR ROM ,DLS ,BLE FLEXABILITY/STRENGTHENING AND POSTURAL EX'S Subjective Subjective: This 57 y/o female presents to physical therapy with low back pain. Patient had lumbar surgery 2019 laminectomy and 2020 had revision of lumbar with fusion surgery. Patient had cervical fusion as well. Patient seen Dr Hawley from family DR and wanted try PT before MRI. Patient had x- rays DDD . Dr Hawley wants to try 4weeks. Patient has thoracic and lumbar pain with paresthesia in feet from neuropathy per patient. Aggrieving factors extended walks ,or stand 15 min bending and lifting. Alleviating factors gabapentin for paresthesia in feet and rest. Patient tried pain management which did not help. Coughing/sneezing-. Bowel/bladder-. Pain affects sleeping. No abnormal night pain. Preauction : ALEGIC LATEX . Patient contributing factors contribute to condition. Patient is trying t loss weight but A 1C increased . Patient pain affects QOL and function . Patient goals to decrease pain. SOCIAL: SINGLE VOCATION: disability Pain Bilateral Back: Pain Intensity (Out of 10): 9 Pain Intensity Range: N/A Objective Objective: POSTURE: mild forward posture knee valgus ,pes planus GAIT: mild forward posture slow minna antalgic gait each side NEURO: c/o paresthesia/tingling in feet SYMMTRIES: align LUMBAR ROM: flexion mod loss ,extension severe loss ,side glides mod loss pain MMT: quads/hams 4-/5 ,hip flexion 3+/5 ,hip abduction 3+/5 ,ankle 4/5 Special Tests L/S Slump test left side: Positive L/S Slump test right side: Positive L/S Left Straight Leg Raise: Positive L/S Right Straight Leg Raise: Positive Lumbar Standing: Flexion - Symptoms During Testing: Increases Lumbar Standing: Flexion - Symptoms After Testing: No effect Lumbar Standing: Extension - Mechanical Response: No effect Lumbar Standing: Extension - Symptoms During Testing: Increases Lumbar Standing: Extension - Symptoms After Testing: No effect Lumbar Standing: Right Side Glides - Mechanical Response: No effect Lumbar Standing: Right Side [place] - Symptoms During Testing: No effect Lumbar Standing: Right Side [place] - Symptoms After Testing: No effect Lumbar Standing: Left Side [place] - Mechanical Response: No effect Lumbar Standing: Left Side [place] - Symptoms During Testing: No effect Lumbar Standing: Left Side [place] - Symptoms After Testing: No effect Balance/Special Test Scores Oswestry Low Back Score: 35 Goals Goal 1:: I with Aquatic therapy program Goal Time Frame: 4-6 Weeks Goal 2:: Patient to improve lumbar ROM for function of recovery to put on shoes Goal Time Frame: 4-6 Weeks Goal 3:: Patient to demonstrate 40% improvement with less pain and improved function. Goal Time Frame: 4-6 Weeks Goal 4:: Patient to improve back oswestry by 5 points to improve function/QOL Goal Time Frame: 4-6 Weeks Goal 5:: Patient improve strength by 4/5 to improve gait with less antalgic gait. Goal Time Frame: 4-6 Weeks Rehabilitation Potential Physical Therapy Diagnosis: This patient has mutiple comorbities to influences condition along with increase pain lumbar ,poor lumbar with pain ,weakness in legs ,pain with positioning and motion te sting thus will benefit from skilled PT Rehabilitation Potential: Fair Anticipated Interventions Patient/Client Instruction: Educate patient on: Condition and Plan of Care For the Purpose of:: To decrease pain, To increase ROM, To improve muscle performance and motor function, To improve ability to perform ADL's, To increase tolerance to activity/condition/position, To improve ability of physical actions for home/community/work/leisure, To improve health of tissue, To decrease soft tissue restriction, To increase flexibility/ROM, To improve endurance and To improve balance Therapeutic Exercise to Include: Strength training, Endurance training, Body mechanics, Postural training, Flexibilty training, "In an aquatic setting" and Dynamic Lumbar Stabilization For the Purpose of:: To decrease pain, To increase ROM, To improve muscle (more content not included)... Normal [facility] HEMOGLOBIN A1C (POC)on 03-23 HbA1c (Bld) [Mass fraction] 10.4 % Abnormal 4.2 - 5.6 % [facility] POLYSOMNOGRAM (PSG)on 2022 [facility] FRED SCREENINGon 12-31-2021 [facility] Trigger Point Injection, 1 o r 2Ordered By: Migel Browning on 01-01-2021 Migel Browning PA-C 01/03/2021 7:08 AM Bilateral Trapezial Trigger Point Injection Performed by: Migel Browning PA-C Authorized by: Migel Browning PA-C Consent given by: Patient Time out: Immediately prior to the procedure a time out was called Physician or proceduralist has discussed critical or nonroutine steps, procedure duration and anticipated blood loss: Yes Indications: Pain Location: Bilateral trapezial ridge Prep: patient was prepped and draped in usual sterile fashion Needle size: 22 G Anesthetic used: Bupivacaine 0.5% Anesthetic amount (mL): 5 Patient tolerance: Patient tolerated the procedure well with no immediate complications [facility] CBC WITH AUTO DIFFERENTIALon 11-01-2020 Basophils (Bld) [#/Vol] 0.02 10*3/uL [facility] Basophils/100 WBC (Bld) 0.3 % [facility] Eosinophils (Bld) [#/Vol] 0.02 10*3/uL [facility] Eosinophils/100 WBC (Bld) 0.3 % [facility] Erythrocyte distribution width (RBC) [Entitic vol] 13.0 % 11.6 - 14.8 % [facility] Hematocrit (Bld) [Volume fraction] 40.9 % 36.0 - 46.0 % [facility] Hemoglobin (Bld) [Mass/Vol] 13.5 g/dL 12.0 - 16.0 g/dL [facility] Immature granulocytes (Bld) [#/Vol] 0.02 10*3/uL [facility] Immature granulocytes/100 WBC (Bld) 0.30 % [facility] Comment on above: The IG parameter is the percentage of metamyelocytes, myelocytes and promyelocytes. An immature granulocyte count (IG) of 1% or more suggests the possibility of infection, an IG count of 3% is very likely related to an infection. Lymphocytes (Bld) [#/Vol] 1.29 10*3/uL [facility] Lymphocytes/100 WBC (Bld) 21.6 % [facility] MCH (RBC) [Entitic mass] 27.7 pg 26.0 - 34.0 pg [facility] MCHC (RBC) [Mass/Vol] 33.0 g/dL 31.0 - 37.0 g/dL [facility] MCV (RBC) [Entitic vol] 83.8 fL 80.0 - 100.0 fL [facility] Monocytes (Bld) [#/Vol] 0.46 10*3/uL [facility] Monocytes/100 WBC (Bld) 7.7 % [facility] Neutrophils (Bld) [#/Vol] 4.15 10*3/uL [facility] Neutrophils/100 WBC (Bld) 69.8 % [facility] Nucleated RBC (Bld) [#/Vol] 0.00 10*3/uL [facility] Nucleated RBC/100 WBC (Bld) [Ratio] 0.0 % [facility] Platelet mean volume (Bld) [Entitic vol] 10.6 fL 9.4 - 12.4 fL [facility] Platelets (Bld) [#/Vol] 213 10*3/uL [facility] RBC (Bld) [#/Vol] 4.88 10*6/uL [facility] WBC (Bld) [#/Vol] 5.96 10*3/uL [facility] COVID-19/INFLUENZA A,B MOLEC ARon 11-01-2020 SARS-CoV-2 (COVID-19) Ab IA Ql SARS-COV-2 (KAITLYN): Detected INFLUENZA A ([place]ITLYN): Not Detected INFLUENZA B ([place]): Not Detected Normal Not Detected [facility] Comment on above: Order Comment: This test was performed under the FDA's Emergency Use Authorization (EUA). Testing was performed using the [facility] SARS-CoV-2 RT-PCR AND Influenza A/B Nucleic Acid Test on the Sh[employer] Kaitlyn System. This test has not been approved for use in asymptomatic patients and its performance in this patient population has not been evaluated. Negative results do not rule out the presence of SARS-CoV-2, influenza A, and/or influenza B. Fact sheets for the EUA can be found at the following links: For Healthcare Providers: https://www.fda.gov/media/872325/download For Patients: https://www.fda.gov/media/793398/download Performed By: #### L [id number] #### [facility] [address], [place] [address] Mike Pitts M.D. [id number] COVID-19/Influenza A,B [facility] 11-01-2020 Influenza A Not Detected Not Detected [facility] Influenza B Not Detected Not Detected [facility] Interpretation and review of laboratory results Abnormal [facility] SARS-CoV-2 Detected Abnormal Not Detected [facility] This test was perfor med under the FDA's Emergency Use Authorization (EUA). Testing was performed using the Cecil [facility] SARS-CoV-2 RT-PCR & Influenza A/B Nucleic Acid Test on the [employer] System. This test has not been approved for use in asymptomatic patients and its performance in this patient population has not been evaluated. Negative results do not rule out the presence of SARS-CoV-2, influenza A, and/or influenza B. Fact sheets for the EUA can be found at the following links: For Healthcare Providers: https://www.fda.gov/media/1421 91/download For Patients: https://www.fda.gov/media/1421 92/download [facility] Chem 7on 11-01-2020 Anion gap [Moles/Vol] 9 mmol/L Low 10 - 20 mmol/L [facility] Chloride [Moles/Vol] 100 mmol/L 98 - 108 mmol/L [facility] Creatinine [Mass/Vol] 0.97 mg/dL 0.40 - 1.10 [facility] GFR/1.73 sq M predicted among non-blacks MDRD (S/P/Bld) [Vol rate/Area] The eGFR should be used for monitoring renal function only and not for medication dosing. [facility] GFR/1.73 sq M.predicted CKD-EPI (S/P/Bld) [Vol rate/Area] 66 >=60 mL/min/1.7 3 m2 [facility] Glucose [Mass/Vol] 332 mg/dL High 65 - 99 mg/dL [facility] HCO3 [Moles/Vol] 29 mmol/L 21 - 32 mmol/L [facility] Potassium [Moles/Vol] 3.6 mmol/L 3.5 - 5.1 mmol/L [facility] Sodium [Moles/Vol] 134 mmol/L Low 135 - 145 mmol/L [facility] Urea nitrogen [Mass/Vol] 8 mg/dL 8 - 25 mg/dL [facility] Urea nitrogen/Creatinin e [Mass ratio] 8.2 mg/mg Low [facility] ECG 12-LEADon 11-01-2020 Atrial Rate 89 BPM [facility] P Addison 53 degrees [facility] P-R Interval 148 ms [facility] Q-T Interval 356 ms [facility] QRS Duration 82 ms [facility] QTC Calculation (Bezet) 433 ms [facility] R Addison 8 degrees [facility] T Addison 53 degrees [facility] Ventricular Rate 89 BPM [facility] Normal sinus rhythm Possible Left atrial enlargement Low voltage QRS Borderline ECG ECG Cart Interpretation see physician note for interpretation. Confirmed by Keisha Pond ([id number]) on 11/01/2020 9:52:23 PM [facility] Hepatic Function Panel (LFT) on 11-01-2020 Albumin [Mass/Vol] 3.1 g/dL Low 3.2 - 5.2 g/dL [facility] ALP [Catalytic activity/Vol] 135 U/L 40 - 150 U/L [facility] ALT [Catalytic activity/Vol] 18 U/L 14 - 65 U/L [facility] AST [Catalytic activity/Vol] 21 U/L 0 - 45 U/L [facility] Bilirubin [Mass/Vol] 0.6 mg/dL 0.0 - 1.3 mg/dL [facility] Bilirubin.conjugat ed [Mass/Vol] 0.2 mg/dL 0.0 - 0.4 mg/dL [facility] Protein [Mass/Vol] 8.0 g/dL 6.0 - 8.0 g/dL [facility] NT Pro BNPon 11-01-2020 Interpretation and review of laboratory results Normal [facility] Natriuretic peptide.B prohormone N-Terminal [Mass/Vol] 41 pg/mL 0 - 300 pg/mL [facility] Pride Study Cut-offs Rule In: < /= 50 Years >450 pg/mL 51 Years - 75 Years >900 pg/mL 76 Years - 99 Years >1800 pg/mL Rule Out: All patients <300 pg/mL [facility] Otheron 11-01-2020 Interpretation and review of laboratory results Abnormal [facility] POC Venous Blood Gas Panel-P ulmon 11-01-2020 Base excess Calc (BldV) [Moles/Vol] 5.2 mmol/L High [facility] Breath rate setting Ventilator synchronized intermittent mandatory 0 [facility] CO2 (BldV) [Partial pressure] 51.3 mm[Hg] High [facility] HCO3 (Bld) [Moles/Vol] 31.5 mmol/L High 24.0 - 28.0 mmol/L [facility] Hematocrit (BldA) [Volume fraction] 43.7 % 36.0 - 46.0 % [facility] Hemoglobin (Bld) [Mass/Vol] 14.2 g/dL 12.0 - 16.0 g/dL [facility] Inhaled oxygen concentration 21 % [facility] Interpretation and review of laboratory results Abnormal [facility] Oxygen (BldV) [Partial pressure] 23 mm[Hg] Low [facility] Comment on above: Caution: pO2 referen ce ranges for some specimen types are lower than the measuring range of the instrument. Oxygen saturation in Venous blood 39.3 % Low 40.0 - 70.0 % [facility] pH (BldV) 7.40 [pH] [facility] Tidal volume setting Ventilator 0 [facility] TROPONINon 11-01-2020 Troponin I.cardiac [Mass/Vol] Normal [facility] Troponin I.cardiac [Mass/Vol] ng/mL <=45 ng/L [facility] URINALYSISon 11-01-2020 Bacteria Auto Ql (U) Many Abnormal None Seen /hpf [facility] Bilirubin Ql (U) Negative Negative [facility] th Clarity Refractometry automated (U) Cloudy Abnormal Clear [facility] Color (U) Yellow Colorless, Yellow [facility] Epithelial cells.squamous Auto (Urine sed) [#/Area] 2 [facility] Glucose Auto test strip (U) [Mass/Vol] >=500 Abnormal Negative mg/dL [facility] Hemoglobin Auto test strip Ql (U) Small Abnormal Negative [facility] Interpretation and review of laboratory results Abnormal [facility] Ketones (U) [Mass/Vol] Negative Negative mg/dL [facility] Leukocyte clumps Auto (Urine sed) [#/Area] Rare Abnormal None Seen /hpf [facility] Leukocyte esterase Auto test strip Ql (U) Large Abnormal Negative [facility] Mucus Auto (Urine sed) [#/Area] Rare None Seen, Rare /lpf [facility] Nitrite Auto test strip Ql (U) Negative Negative [facility] pH (U) 6.5 [pH] [facility] Protein (U) [Mass/Vol] Negative Negative mg/dL [facility] RBC Auto (Urine sed) [#/Area] 8 High [facility] Specific gravity (U) [Rel density] 1.034 High [facility] Urobilinogen (U) [Mass/Vol] <2.0 <2.0 mg/dL [facility] WBC Auto (Urine sed) [#/Area] >180 High [facility] Microscopic examinat ion is performed on all urinalysis samples and only positive findings are reported. The test for blood on the chemical analytic portion of urinalysis may also be positive due to hemoglobinuria and myoglobinuria and if red blood cells are present they are quantified by microscopic examination. [facility] XR CHEST PA/APon 11-01-2020 XR CHEST PA/AP EXAMINATION: XR CHEST PA/AP 11/01/2020 9:58 pm HISTORY: ORDERING SYSTEM PROVIDED HISTORY: sob, TECHNOLOGIST PROVIDED HISTORY: Illness/Other Reason for exam: sob/cough/bodyaches/covid+ Cancer History: u Surgery, RadiationHistory: u Encounter Type: Initial Additional signs and symptoms: . ORDERING SYSTEM PROVIDED DIAGNOSIS CODES: COMPARISON: Chest x-ray of 04/27/2020 FINDINGS: The heart size is normal. Small hazy changes are seen in the bilateral lung bases, which may represent atelectatic changes versus small hazy infiltrates. No significant pleural effusion or pneumothorax is seen. IMPRESSION: Small hazy changes are seen in the bilateral lung bases, which may represent atelectatic changes versus small hazy infiltrates. Workstation ID: [id number] Dictated by: CHRIS DAN on ThuNov 01, 2020 10:51:50 PM EST Transcribed by: CHRIS DAN on ThuNov 01, 2020 10:51:50 PM EST Finalized by: CHRIS DAN on ThuNov 01, 2020 10:51:50 PM EST Normal [facility] Comment on above: Order Comment: Injur y/Trauma or Illness?:Illness/Other How long have you had these symptoms (acute/chronic)?:Acute Reason for exam?:sob/cough/bodyaches/covid+ History of cancer?:u Surgeries, chemotherapy, or radiation?:u Type of Exam?:Initial Additional signs and symptoms?:. XR Chest 1 Viewon 11-01-2020 EXAMINATION: XR CHES T PA/AP 11/01/2020 9:58 pm HISTORY: ORDERING SYSTEM PROVIDED HISTORY: sob, TECHNOLOGIST PROVIDED HISTORY: Illness/Other Reason for exam: sob/cough/bodyaches/covid+ Cancer History: u Surgery, RadiationHistory: u Encounter Type: Initial Additional signs and symptoms: . ORDERING SYSTEM PROVIDED DIAGNOSIS CODES: COMPARISON: Chest x-ray of 04/27/2020 FINDINGS: The heart size is normal. Small hazy changes are seen in the bilateral lung bases, which may represent atelectatic changes versus small hazy infiltrates. No significant pleural effusion or pneumothorax is seen. [facility], [place] In ji Speechq - 11/01/2020 10:54 PM EST EXAMINATION: XR CHEST PA/AP 11/01/2020 9:58 pm HISTORY: ORDERING SYSTEM PROVIDED HISTORY: sob, TECHNOLOGIST PROVIDED HISTORY: Illness/Other Reason for exam: sob/cough/bodyaches/covid+ Cancer History: u Surgery, RadiationHistory: u Encounter Type: Initial Additional signs and symptoms: . ORDERING SYSTEM PROVIDED DIAGNOSIS CODES: COMPARISON: Chest x-ray of 04/27/2020 FINDINGS: The heart size is normal. Small hazy changes are seen in the bilateral lung bases, which may represent atelectatic changes versus small hazy infiltrates. No significant pleural effusion or pneumothorax is seen. IMPRESSION: Small hazy changes are seen in the bilateral lung bases, which may represent atelectatic changes versus small hazy infiltrates. Workstation ID: [id number] [facility] Small hazy changes a re seen in the bilateral lung bases, which may represent atelectatic changes versus small hazy infiltrates. Workstation ID: [id number] [facility] XR CERVICAL SPINE WITH FLEXI ON AND EXTENSION 6+ VIEWSon 10-03-2020 XR CERVICAL SPINE WITH FLEXION AND EXTENSION 6+ VIEWS EXAMINATION: XR CERVICAL SPINE WITH FLEXION AND EXTENSION 6+ VIEWS 10/03/2020 12:27 pm HISTORY: ORDERING SYSTEM PROVIDED HISTORY: neck pain status post cervical fusion, TECHNOLOGIST PROVIDED HISTORY: Illness/Other Reason for exam: neck pain status post cervical fusion Cancer History: u Surgery, RadiationHistory: u Encounter Type: Initial Additional signs and symptoms: pain ORDERING SYSTEM PROVIDED DIAGNOSIS CODES: M50.30 Degenerative disc disease, cervical Z98.1 Status post cervical spinal fusion COMPARISON: 03/08/2020 FINDINGS: There is normal cervical lordosis. The atlanto occipital and atlantoaxial articulations are congruent. The vertebral body heights and facet alignments are maintained. There postsurgical changes from C4-C5 and C5-C6 ACDF. The hardware appears intact. No dynamic instability. No radiographic evidence of significant neural foraminal stenosis. The prevertebral soft tissues are unremarkable. The lung apices are clear. IMPRESSION: Postsurgical changes without acute osseous abnormality. Workstation ID: [id number] Dictated by: KAYLEIGH MURRAY on ThuOct 03, 2020 4:19:50 PM EST Transcribed by: KAYLEIGH MURRAY on ThuOct 03, 2020 4:19:50 PM EST Finalized by: KAYLEIGH MURRAY on ThuOct 03, 2020 4:19:50 PM EST Normal [facility] Comment on above: Order Comment: Injur y/Trauma or Illness?:Illness/Other How long have you had these symptoms (acute/chronic)?:Acute Reason for exam?:neck pain status post cervical fusion History of cancer?:u Surgeries, chemotherapy, or radiation?:u Type of Exam?:Initial Additional signs and symptoms?:pain XR Cervical Spine with Flexi on and Extension 6+ Viewson 10-03-2020 Postsurgical changes without acute osseous abnormality. Workstation ID: [id number] [facility] EXAMINATION: XR CERV ICAL SPINE WITH FLEXION AND EXTENSION 6+ VIEWS 10/03/2020 12:27 pm HISTORY: ORDERING SYSTEM PROVIDED HISTORY: neck pain status post cervical fusion, TECHNOLOGIST PROVIDED HISTORY: Illness/Other Reason for exam: neck pain status post cervical fusion Cancer History: u Surgery, RadiationHistory: u Encounter Type: Initial Additional signs and symptoms: pain ORDERING SYSTEM PROVIDED DIAGNOSIS CODES: M50.30 Degenerative disc disease, cervical Z98.1 Status post cervical spinal fusion COMPARISON: 03/08/2020 FINDINGS: There is normal cervical lordosis. The atlanto occipital and atlantoaxial articulations are congruent. The vertebral body heights and facet alignments are maintained. There postsurgical changes from C4-C5 and C5-C6 ACDF. The hardware appears intact. No dynamic instability. No radiographic evidence of significant neural foraminal stenosis. The prevertebral soft tissues are unremarkable. The lung apices are clear. [facility] Interface, Rad In Fu ji Speechq - 10/03/2020 4:22 PM EST EXAMINATION: XR CERVICAL SPINE WITH FLEXION AND EXTENSION 6+ VIEWS 10/03/2020 12:27 pm HISTORY: ORDERING SYSTEM PROVIDED HISTORY: neck pain status post cervical fusion, TECHNOLOGIST PROVIDED HISTORY: Illness/Other Reason for exam: neck pain status post cervical fusion Cancer History: u Surgery, RadiationHistory: u Encounter Type: Initial Additional signs and symptoms: pain ORDERING SYSTEM PROVIDED DIAGNOSIS CODES: M50.30 Degenerative disc disease, cervical Z98.1 Status post cervical spinal fusion COMPARISON: 03/08/2020 FINDINGS: There is normal cervical lordosis. The atlanto occipital and atlantoaxial articulations are congruent. The vertebral body heights and facet alignments are maintained. There postsurgical changes from C4-C5 and C5-C6 ACDF. The hardware appears intact. No dynamic instability. No radiographic evidence of significant neural foraminal stenosis. The prevertebral soft tissues are unremarkable. The lung apices are clear. IMPRESSION: Postsurgical changes without acute osseous abnormality. Workstation ID: [id number] [facility] PET Tumor Imaging With CT Sk ull To Thighon 06-19-2020 1. A pulmonary nodul e in the left upper lobe has minimally increased FDG uptake that favors a benign etiology; however, some malignancies, such as minimally invasive adenocarcinoma, may not be FDG-avid. Consider tissue sampling for definitive diagnosis. 2. Subcentimeter left hilar lymph nodes with increased FDG uptake are indeterminate. 3. Increased FDG uptake in the palatine tonsils, with asymmetric thickening of the left palatine tonsil, is nonspecific, and may be inflammatory, physiologic or neoplastic. Consider direct visualization. 4. Hypermetabolic left submandibular and left upper cervical lymph nodes are likely related to the process in the palatine tonsils. 5. No osseous metastatic disease. SDH/trn Workstation ID: [id number] [facility] EXAMINATION: FDG PET /CT TUMOR IMAGING HISTORY: Dx: Pulmonary nodule, left R91.1 (ICD-10-CM). This study is requested for diagnosis. Initial treatment strategy. TECHNIQUE: The patient's fasting blood glucose level measured by glucometer was 168 mg/dL. After the intravenous administration of 13.95 mCi of F-18 fluorodeoxyglucose (FDG), low-dose, non-contrast CT images were obtained for attenuation correction and for fusion with emission PET images to allow for anatomical localization of PET findings. Emission PET images were then obtained. The area imaged spanned the region from the skull base to the proximal thighs. The time from injection of FDG to the start of imaging was 104 minutes. Additional reconstruction was performed using [employer] technique, which has been reported to increase accuracy of SUV measurements. COMPARISON: CT of the chest dated 05/18/2020. FINDINGS: NECK: A left level IIa cervical lymph node measuring 1 cm in short axis has moderately increased FDG uptake, with a maximum standardized uptake value (SUV) of 3.5 on image 32. A left submandibular lymph node measuring 7 mm in short axis also has moderately increased FDG uptake, SUV 3.5 on image 37. There are few additional subcentimeter bilateral level II and submandibular lymph nodes with mildly increased FDG uptake. There is moderately increased FDG uptake in both palatine tonsils. There is asymmetric thickening of the left palatine tonsil image 30. For reference, the SUV in the left palatine tonsil is 6.2, and the SUV in the right tonsil is 6.3. CHEST: A 9 x 8 mm pulmonary nodule in the left upper lobe has minimally increased FDG uptake, with an SUV of 1.8 on image 66, which is less than background FDG activity in the mediastinal blood pool. There is moderately increased FDG uptake associated with 2 subcentimeter left hilar lymph nodes, SUV 4.6 on image 78. There are no hypermetabolic mediastinal or right hilar lymph nodes. ABDOMEN AND PELVIS: There is no hypermetabolic adrenal nodule. There is no hypermetabolic lymphadenopathy. There is physiologic excretion of FDG in several loops of bowel. MUSCULOSKELETAL: There is a physiologic distribution of FDG uptake in the bone marrow. There is no focal hypermetabolic osseous lesion. INCIDENTAL CT FINDINGS: There is mild atherosclerotic calcification of the abdominal aorta. There is posterior fusion hardware at L4-L5. There is anterior fusion hardware at C4-C5 and C5-C6. There are multilevel degenerative changes in the spine. [facility], Rad In Fu ji Speechq - 06/19/2020 2:56 PM EDT EXAMINATION: FDG PET/CT TUMOR IMAGING HISTORY: Dx: Pulmonary nodule, left R91.1 (ICD-10-CM). This study is requested for diagnosis. Initial treatment strategy. TECHNIQUE: The patient's fasting blood glucose level measured by glucometer was 168 mg/dL. After the intravenous administration of 13.95 mCi of F-18 fluorodeoxyglucose (FDG), low-dose, non-contrast CT images were obtained for attenuation correction and for fusion with emission PET images to allow for anatomical localization of PET findings. Emission PET images were then obtained. The area imaged spanned the region from the skull base to the proximal thighs. The time from injection of FDG to the start of imaging was 104 minutes. Additional reconstruction was performed using [employer] technique, which has been reported to increase accuracy of SUV measurements. COMPARISON: CT of the chest dated 05/18/2020. FINDINGS: NECK: A left level IIa cervical lymph node measuring 1 cm in short axis has moderately increased FDG uptake, with a maximum standardized uptake value (SUV) of 3.5 on image 32. A left submandibular lymph node measuring 7 mm in short axis also has moderately increased FDG uptake, SUV 3.5 on image 37. There are few additional subcentimeter bilateral level II and submandibular lymph nodes with mildly increased FDG uptake. There is moderately increased FDG uptake in both palatine tonsils. There is asymmetric thickening of the left palatine tonsil image 30. For reference, the SUV in the left palatine tonsil is 6.2, and the SUV in the right tonsil is 6.3. CHEST: A 9 x 8 mm pulmonary nodule in the left upper lobe has minimally increased FDG uptake, with an SUV of 1.8 on image 66, which is less than background FDG activity in the mediastinal blood pool. There is moderately increased FDG uptake associated with 2 subcentimeter left hilar lymph nodes, SUV 4.6 on image 78. There are no hypermetabolic mediastinal or right hilar lymph nodes. ABDOMEN AND PELVIS: There is no hypermetabolic adrenal nodule. There is no hypermetabolic lymphadenopathy. There is physiologic excretion of FDG in several loops of bowel. MUSCULOSKELETAL: There is a physiologic distribution of FDG uptake in the bone marrow. There is no focal hypermetabolic osseous lesion. INCIDENTAL CT FINDINGS: There is mild atherosclerotic calcification of the abdominal aorta. There is posterior fusion hardware at L4-L5. There is anterior fusion hardware at C4-C5 and C5-C6. There are multilevel degenerative changes in the spine. IMPRESSION: 1. A pulmonary nodule in the left upper lobe has minimally increased FDG uptake that favors a benign etiology; however, some malignancies, such as minimally invasive adenocarcinoma, may not be FDG-avid. Consider tissue sampling for definitive diagnosis. 2. Subcentimeter left hilar lymph nodes with increased FDG uptake are indeterminate. 3. Increased FDG uptake in the palatine tonsils, with asymmetric thickening of the left palatine tonsil, is nonspecific, and may be inflammatory, physiologic or neoplastic. Consider direct visualization. 4. Hypermetabolic left submandibular and left upper cervical lymph nodes are likely related to the process in the palatine tonsils. 5. No osseous metastatic disease. [facility] Workstation ID: [id number] [facility] POC Glucoseon 06-19-2020 Glucose [Mass/Vol] 168 mg/dL High 65 - 99 mg/dL [facility] Interpretation and review of laboratory results Abnormal [facility] POC Glucoseon 06-11-2020 Glucose [Mass/Vol] 138 mg/dL High 65 - 99 mg/dL [facility] Interpretation and review of laboratory results Abnormal [facility] Glucose [Mass/Vol] 168 mg/dL High 65 - 99 mg/dL [facility] Interpretation and review of laboratory results Abnormal [facility] POC Glucoseon 06-10-2020 Glucose [Mass/Vol] 94 mg/dL 65 - 99 mg/dL [facility] Interpretation and review of laboratory results Normal [facility] Glucose [Mass/Vol] 172 mg/dL High 65 - 99 mg/dL [facility] Interpretation and review of laboratory results Abnormal [facility] Glucose [Mass/Vol] 140 mg/dL High 65 - 99 mg/dL [facility] Interpretation and review of laboratory results Abnormal [facility] Glucose [Mass/Vol] 81 mg/dL 65 - 99 mg/dL [facility] Interpretation and review of laboratory results Normal [facility] Glucose [Mass/Vol] 97 mg/dL 65 - 99 mg/dL [facility] Interpretation and review of laboratory results Normal [facility] POC Glucoseon 06-09-2020 Glucose [Mass/Vol] 187 mg/dL High 65 - 99 mg/dL [facility] Interpretation and review of laboratory results Abnormal [facility] Glucose [Mass/Vol] 170 mg/dL High 65 - 99 mg/dL [facility] Interpretation and review of laboratory results Abnormal [facility] Glucose [Mass/Vol] 68 mg/dL 65 - 99 mg/dL [facility] Interpretation and review of laboratory results Normal [facility] Glucose [Mass/Vol] 117 mg/dL High 65 - 99 mg/dL [facility] Interpretation and review of laboratory results Abnormal [facility] Glucose [Mass/Vol] 126 mg/dL High 65 - 99 mg/dL [facility] Interpretation and review of laboratory results Abnormal [facility] Basic Metabolic Panelon 05-16 Anion gap [Moles/Vol] 9 mmol/L Low 10 - 20 mmol/L [facility] Calcium [Mass/Vol] 8.6 mg/dL 8.4 - 10. 2 mg/dL [facility] Chloride [Moles/Vol] 106 mmol/L 98 - 108 mmol/L [facility] Creatinine [Mass/Vol] 0.73 mg/dL 0.40 - 1.10 [facility] GFR/1.73 sq M predicted among non-blacks MDRD (S/P/Bld) [Vol rate/Area] The eGFR should be used for monitoring renal function only and not for medication dosing. [facility].pred[facility] CKD-EPI (S/P/Bld) [Vol rate/Area] 93 >=60 mL/min/1.7 3 m2 [facility] Glucose [Mass/Vol] 198 mg/dL High 65 - 99 mg/dL [facility] HCO3 [Moles/Vol] 27 mmol/L 21 - 32 mmol/L [facility] Interpretation and review of laboratory results Abnormal [facility] Potassium [Moles/Vol] 4.3 mmol/L 3.5 - 5.1 mmol/L [facility] Sodium [Moles/Vol] 138 mmol/L 135 - 145 mmol/L [facility] Urea nitrogen [Mass/Vol] 11 mg/dL 8 - 25 mg/dL [facility] Urea nitrogen/Creatinin e [Mass ratio] 15.1 mg/mg [facility] CBCon 06-08-2020 Erythrocyte distribution width (RBC) [Entitic vol] 12.7 % 11.6 - 14.8 % [facility] Hematocrit (Bld) [Volume fraction] 36.1 % 36 - 46 % [facility] Hemoglobin (Bld) [Mass/Vol] 11.6 g/dL Low 12 - 16 g/dL [facility] Interpretation and review of laboratory results Abnormal [facility] MCH (RBC) [Entitic mass] 28.1 pg 26 - 34 pg [facility] MCHC (RBC) [Mass/Vol] 32.1 g/dL 31 - 37 g/dL [facility] MCV (RBC) [Entitic vol] 87.4 fL 80 - 100 fL [facility] Nucleated RBC (Bld) [#/Vol] 0.00 10*3/uL [facility] Nucleated RBC/100 WBC (Bld) [Ratio] 0.0 % [facility] Platelet mean volume (Bld) [Entitic vol] 9.9 fL 9.4 - 12.4 fL [facility] Platelets (Bld) [#/Vol] 289 10*3/uL [facility] RBC (Bld) [#/Vol] 4.13 10*6/uL [facility] WBC (Bld) [#/Vol] 13.39 10*3/uL High [facility] POC Glucoseon 06-08-2020 Glucose [Mass/Vol] 274 mg/dL High 65 - 99 mg/dL [facility] Interpretation and review of laboratory results Abnormal [facility] Glucose [Mass/Vol] 213 mg/dL High 65 - 99 mg/dL [facility] Interpretation and review of laboratory results Abnormal [facility] Glucose [Mass/Vol] 268 mg/dL High 65 - 99 mg/dL [facility] Interpretation and review of laboratory results Abnormal [facility] Glucose [Mass/Vol] 185 mg/dL High 65 - 99 mg/dL [facility] Interpretation and review of laboratory results Abnormal [facility] Glucose [Mass/Vol] 218 mg/dL High 65 - 99 mg/dL [facility] Interpretation and review of laboratory results Abnormal [facility] Glucose [Mass/Vol] 193 mg/dL High 65 - 99 mg/dL [facility] Interpretation and review of laboratory results Abnormal [facility] Glucose [Mass/Vol] 225 mg/dL High 65 - 99 mg/dL [facility] Interpretation and review of laboratory results Abnormal [facility] POC Glucoseon 06-07-2020 Glucose [Mass/Vol] 315 mg/dL High 65 - 99 mg/dL [facility] Interpretation and review of laboratory results Abnormal [facility] Glucose [Mass/Vol] 343 mg/dL High 65 - 99 mg/dL [facility] Interpretation and review of laboratory results Abnormal [facility] Glucose [Mass/Vol] 320 mg/dL High 65 - 99 mg/dL [facility] Interpretation and review of laboratory results Abnormal [facility] Glucose [Mass/Vol] 257 mg/dL High 65 - 99 mg/dL [facility] Interpretation and review of laboratory results Abnormal [facility] Glucose [Mass/Vol] 220 mg/dL High 65 - 99 mg/dL [facility] Interpretation and review of laboratory results Abnormal [facility] Glucose [Mass/Vol] 224 mg/dL High 65 - 99 mg/dL [facility] Interpretation and review of laboratory results Abnormal [facility] Glucose [Mass/Vol] 303 mg/dL High 65 - 99 mg/dL [facility] Interpretation and review of laboratory results Abnormal [facility] XR OR C-Spine 2-3 Viewson Interface, Rad In Fu ji Speechq - 06/07/2020 6:08 PM EDT EXAMINATION: XR OR C-SPINE 2-3 VIEWS HISTORY: ORDERING SYSTEM PROVIDED HISTORY: C5-6 DISCECTOMY/ FUSION, TECHNOLOGIST PROVIDED HISTORY: Illness/Other Reason for exam: C 5-6 LAMINECTOMY/FUSION Encounter Type: Initial Additional signs and symptoms: U Fluoro dose in mGy: 1.26 ORDERING SYSTEM PROVIDED DIAGNOSIS CODES: COMPARISON: MRI cervical spine 03/08/2020. TECHNIQUE: Fluoro Dose in Ka,r mGy: 1.26. Four intraoperative fluoroscopic images of the cervical spine in the lateral projection. FINDINGS: Intraoperative images demonstrating C4-C5 and C5-C6 ACDF in progress. IMPRESSION: C4-C5 and C5-C6 ACDF in progress. [facility]/lab Workstation ID: [id number] [facility] EXAMINATION: XR OR C -SPINE 2-3 VIEWS HISTORY: ORDERING SYSTEM PROVIDED HISTORY: C5-6 DISCECTOMY/ FUSION, TECHNOLOGIST PROVIDED HISTORY: Illness/Other Reason for exam: C 5-6 LAMINECTOMY/FUSION Encounter Type: Initial Additional signs and symptoms: U Fluoro dose in mGy: 1.26 ORDERING SYSTEM PROVIDED DIAGNOSIS CODES: COMPARISON: MRI cervical spine 03/08/2020. TECHNIQUE: Fluoro Dose in Ka,r mGy: 1.26. Four intraoperative fluoroscopic images of the cervical spine in the lateral projection. FINDINGS: Intraoperative images demonstrating C4-C5 and C5-C6 ACDF in progress. [facility] C4-C5 and C5-C6 ACDF in progress. [facility]/lab Workstation ID: [id number] [facility] POC Glucoseon 06-06-2020 Glucose [Mass/Vol] 206 mg/dL High 65 - 99 mg/dL [facility] Interpretation and review of laboratory results Abnormal [facility] COVID-19, MOLECULARon 2019 SARS-COV-2 RNA (CECIL) Not Detected Normal Not Detected [facility] Comment on above: Result Comment: This test was performed under the FDA's Emergency Use Authorization (EUA). Testing was performed using the Shayne SARS-CoV-2 assay on the [employer] Shayne 6800 System. This test has not been approved for use in asymptomatic patients and its performance in this patient population has not been evaluated. Negative results do not rule out the presence of SARS-CoV-2/COVID-19. Fact sheets for this EUA can be found at the following links: For Healthcare Providers: https://www.fda.gov/media/549017/download For Patients: https://www.fda.gov/media/460829/download Performed By: #### L [id number] #### [facility] [address] Dominic Sanders M.D. [id number] CT CHEST WITH CONTRASTon Left upper lobe 9 x 8 mm pulmonary nodule,, mildly increased in size compared to 11/18/2017 (7 x 8 mm). Further evaluation could be considered with PET/CT. [employer] Workstation ID: [id number] [facility] EXAMINATION: CT CHES T WITH CONTRAST HISTORY: ORDERING SYSTEM PROVIDED HISTORY: Lung nodule, 6-8mm, follow up exam, TECHNOLOGIST PROVIDED HISTORY: Illness/Other Reason for exam: 8mm IRMA nodule noted on recent cxr Encounter Type: Initial Additional signs and symptoms: HTN, DM, anxiety ORDERING SYSTEM PROVIDED DIAGNOSIS CODES: R91.1 Pulmonary nodule COMPARISON: 04/27/2020, chest radiograph. 11/18/2017, chest CT. TECHNIQUE: CT chest with contrast. Dose reduction techniques were achieved by using automated exposure control and/or adjustment of mA and/or kV according to patient size and/or use of iterative reconstruction technique. CONTRAST: IOPAMIDOL 76 % INTRAVENOUS SOLUTION - 75 mL. FINDINGS: Mediastinum: Trachea and central airways are patent. Thoracic aorta is normal caliber. Heart is normal in size without pericardial effusion. No mediastinal or hilar lymphadenopathy. Pleural Cavity: No pneumothorax. No pleural effusion. Lungs: Left upper lobe apical pulmonary nodule measures 9 x 8 mm in the axial plane (series 3, image 17), previously measured 7 x 8 mm on 11/18/2017. No additional pulmonary nodule is identified. Lungs are otherwise clear. Chest Wall/Axilla: No axillary lymphadenopathy. Visualized Upper Abdomen: No acute findings. Aurf-ry-cdrkebiz discogenic disease of the mid and lower thoracic spine. Osseous Structures: No destructive lesions. [facility] Interface, Rad In Fu ji Speechq - 05/18/2020 6:16 PM EDT EXAMINATION: CT CHEST WITH CONTRAST HISTORY: ORDERING SYSTEM PROVIDED HISTORY: Lung nodule, 6-8mm, follow up exam, TECHNOLOGIST PROVIDED HISTORY: Illness/Other Reason for exam: 8mm IRMA nodule noted on recent cxr Encounter Type: Initial Additional signs and symptoms: HTN, DM, anxiety ORDERING SYSTEM PROVIDED DIAGNOSIS CODES: R91.1 Pulmonary nodule COMPARISON: 04/27/2020, chest radiograph. 11/18/2017, chest CT. TECHNIQUE: CT chest with contrast. Dose reduction techniques were achieved by using automated exposure control and/or adjustment of mA and/or kV according to patient size and/or use of iterative reconstruction technique. CONTRAST: IOPAMIDOL 76 % INTRAVENOUS SOLUTION - 75 mL. FINDINGS: Mediastinum: Trachea and central airways are patent. Thoracic aorta is normal caliber. Heart is normal in size without pericardial effusion. No mediastinal or hilar lymphadenopathy. Pleural Cavity: No pneumothorax. No pleural effusion. Lungs: Left upper lobe apical pulmonary nodule measures 9 x 8 mm in the axial plane (series 3, image 17), previously measured 7 x 8 mm on 11/18/2017. No additional pulmonary nodule is identified. Lungs are otherwise clear. Chest Wall/Axilla: No axillary lymphadenopathy. Visualized Upper Abdomen: No acute findings. Xfub-rw-qivkcpkd discogenic disease of the mid and lower thoracic spine. Osseous Structures: No destructive lesions. IMPRESSION: Left upper lobe 9 x 8 mm pulmonary nodule,, mildly increased in size compared to 11/18/2017 (7 x 8 mm). Further evaluation could be considered with PET/CT. ST/tr Workstation ID: [id number] [facility] CT CHEST WITH CONTRAST EXAMINATION: CT CHEST WITH CONTRAST HISTORY: ORDERING SYSTEM PROVIDED HISTORY: Lung nodule, 6-8mm, follow up exam, TECHNOLOGIST PROVIDED HISTORY: Illness/Other Reason for exam: 8mm IRMA nodule noted on recent cxr Encounter Type: Initial Additional signs and symptoms: HTN, DM, anxiety ORDERING SYSTEM PROVIDED DIAGNOSIS CODES: R91.1 Pulmonary nodule COMPARISON: 04/27/2020, chest radiograph. 11/18/2017, chest CT. TECHNIQUE: CT chest with contrast. Dose reduction techniques were achieved by using automated exposure control and/or adjustment of mA and/or kV according to patient size and/or use of iterative reconstruction technique. CONTRAST: IOPAMIDOL 76 % INTRAVENOUS SOLUTION - 75 mL. FINDINGS: Mediastinum: Trachea and central airways are patent. Thoracic aorta is normal caliber. Heart is normal in size without pericardial effusion. No mediastinal or hilar lymphadenopathy. Pleural Cavity: No pneumothorax. No pleural effusion. Lungs: Left upper lobe apical pulmonary nodule measures 9 x 8 mm in the axial plane (series 3, image 17), previously measured 7 x 8 mm on 11/18/2017. No additional pulmonary nodule is identified. Lungs are otherwise clear. Chest Wall/Axilla: No axillary lymphadenopathy. Visualized Upper Abdomen: No acute findings. Nbxv-pd-lgxekyny discogenic disease of the mid and lower thoracic spine. Osseous Structures: No destructive lesions. IMPRESSION: Left upper lobe 9 x 8 mm pulmonary nodule,, mildly increased in size compared to 11/18/2017 (7 x 8 mm). Further evaluation could be considered with PET/CT. [employer] Workstation ID: [id number] Dictated by: RONALD DURAN on ThuMay 18, 2020 3:14:05 PM EDT Transcribed by: NIESHA SCHROEDER on ThuMay 18, 2020 3:42:41 PM EDT Finalized by: ORNALD DURAN on ThuMay 18, 2020 6:13:56 PM EDT [facility] Comment on above: Order Comment: Injur y/Trauma or Illness?:Illness/Other How long have you had these symptoms (acute/chronic)?:Unknown Reason for exam?:8mm IRMA nodule noted on recent cxr Type of Exam?:Initial Additional signs and symptoms?:HTN, DM, anxiety COVID-19, MOLECULARon 2019 SARS-COV-2 RNA (CECIL) Not Detected Normal Not Detected [facility] Comment on above: Result Comment: This test was performed under the FDA's Emergency Use Authorization (EUA). Testing was performed using the Shayne SARS-CoV-2 assay on the [employer] Shayne 6800 System. This test has not been approved for use in asymptomatic patients and its performance in this patient population has not been evaluated. Negative results do not rule out the presence of SARS-CoV-2/COVID-19. Fact sheets for this EUA can be found at the following links: For Healthcare Providers: https://www.fda.gov/media/882590/download For Patients: https://www.fda.gov/media/806584/download Performed By: #### L [id number] #### [facility] [address] [place] [address] Dominic Sanders M.D. [id number] XR CHEST AP/PA AND LATon 8 mm left upper lobe pulmonary nodule, seen retrospectively on 11/18/2017 and 12/10/2018 CTs. Recommend nonemergent chest CT follow-up. Lungs are otherwise clear. [employer] Workstation ID: [id number] [facility] EXAMINATION: XR CHES T AP/PA AND LAT HISTORY: ORDERING SYSTEM PROVIDED HISTORY: Preoperative testing, TECHNOLOGIST PROVIDED HISTORY: Illness/Other Reason for exam: pre op Cancer History: u Surgery, RadiationHistory: u Encounter Type: Initial Additional signs and symptoms: . ORDERING SYSTEM PROVIDED DIAGNOSIS CODES: Z01.818 Preoperative testing COMPARISON: 11/18/2017. FINDINGS: Two-view chest x-ray. 8 mm nodule projects over the left upper lobe. Lungs are otherwise clear. No pneumothorax. No significant pleural effusions. Heart is normal in size. Bony thorax is unremarkable. [facility] Interface, Rad In Fu ji Speechq - 04/27/2020 11:19 PM EDT EXAMINATION: XR CHEST AP/PA AND LAT HISTORY: ORDERING SYSTEM PROVIDED HISTORY: Preoperative testing, TECHNOLOGIST PROVIDED HISTORY: Illness/Other Reason for exam: pre op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 06-22-2018 History And Physical-Dictated [id number], [place] [address] JUANA HANDY V [facility] [id number] 1965DATEPRE-SURGICAL HISTORY AND PHYSICALCHIEF COMPLAINTThis is a 52-year-old female complaining of lower back pain, difficulty tostand or walk any distance, lower extremity radicular pain in the leftnondermatomal pattern.HISTORY OF PRESENT ILLNESSThis lady returns status post an MRI pelvic view on March 26. She had evidenceof a previous hemilaminectomy and diskectomy at the L4-5 level with enhancingscar tissue. There is now a new 6 x 4 mm right-sided facet synovial cystexpands to the spinal canal with recurrent right paracentral lateral recessforaminal disk extrusion. This results in severe spinal canal stenosis L3-4.There is again moderate stenosis L2-3, grade 1 retrolisthesis of moderatestenosis as well. Her primary problem is the disease noted at the L4-5 level.On physical exam, she has increased pain with lumbar extension, paraspinalspasm. No gross motor or sensory reflux asymmetry is noted in the lowerextremities. Again, discussed with her as a possible laminectomy fusion L4-5with PLIF procedure, excision of right-sided facet cyst. She wishes toproceed at this time.PAST MEDICAL HISTORYIncludes back pain, chronic bronchitis, degeneration lumbar spine,diverticulitis, fibromyalgia, hypertension, hyperlipidemia, nerve disorder,type 2 diabetes.PREVIOUS SURGERYBreast biopsy on the left, cataract extraction bilateral, colonoscopies,dilatation and curettage of the uterus.FAMILY MEDICAL HISTORYIncludes bone cancer, diabetes, heart disease, heart failure, lung cancer,stroke.SOCIAL HISTORYShe does not smoke.ALLERGIESTo latex.MEDICATIONSInclude Actos, Lac-Hydrin, aspirin, Lipitor, Flexeril, Cymbalta, Neurontin,Amaryl, Mobic, Lopressor, Naprosyn, Percocet, Protonix, Basaglar, KwikPeninsulin, lispro insulin, Prinivil.PHYSICAL EXAMGeneral: The patient is alert, oriented.HEENT: Pupils equal, round, reactive. Extraocular muscles are intact.Trachea is midline.Neck: Supple. No palpable masses.Lungs: Clear bilateral.Heart: Normal sinus rhythm. No murmur or gallop. Abdomen: Soft, nontender.Bowel sounds present x4.Spine/extremities: Noted in history of present illness. No clubbing,cyanosis, or edema noted.IMPRESSIONFacet cyst right-sided, previous laminectomy L4-5 with spinal stenosis.PLANFor laminectomy, fusion and PLIF procedure L4-5.Dictated by GEORGINA Mcarthur, RUPESH 05/09/2018 13:53 [id number] 05/09/2018 14:26 DKF/MODLElectronically Signed By Linh Pat M.D. on 12 May 2018 17:25:45 GMT Normal [facility] SPINE LUMBAR 2 OR 3 VIEWSon 06-22-2018 SPINE LUMBAR 2 OR 3 VIEWS Final ReportAccession No: [id number] Performed: Jun 22 2018 11:50AMExamination: SPINE LUMBAR 2 OR 3 VIEWSEXAM: SPINE LUMBAR 2 OR 3 VIEWSREASON FOR EXAM: Post Op.TECHNIQUE: 2 views lumbar spine.COMPARISON: [facility], most recent 05/20/2018.FINDINGS:There are 5 nonrib-bearing lumbar vertebrae. Normal lumbar lordosiswithoutevidence of listhesis. Postsurgical changes from L4-L5 posterior fusionwithpaired bilateral pedicle screws, vertical stabilizing bars andlaminectomy.Vertebral body heights are maintained without evidence of acute displacedfracture. The hardware is intact. Unchanged degenerative disc diseaseinvolvingthe L2-L3 level.Sacroiliac joints are intact with mild degenerative narrowing. Lung basesareclear. Bowel gas pattern is nonobstructive.IMPRESSION:Dege nerative and postoperative changes without acute osseous abnormality.Interpreting Physician: KAYLEIGH MURRAY M.D.Trans: n/a : cc: Normal [facility] SPINE LUMBAR 2 OR 3 VIEWSon 05-20-2018 SPINE LUMBAR 2 OR 3 VIEWS Final ReportAccession No: [id number] Performed: May 20 2018 1:18PMExamination: SPINE LUMBAR 2 OR 3 VIEWSLUMBAR SPINE SERIES.CLINICAL HISTORY: Low back pain 1 week follow up post lumbar fusion.COMPARISON: MRI lumbar spine 03/13/2018.FINDINGS: 2 images are submitted. The patient is post L4-L5 laminectomyandposterior fusion with pedicle screws in place. Bone graft material is seenthreading the pedicle screws and hardware. Postsurgical alignment isnormal.Skin evan overlie the midline. There are five lumbar-type vertebralbodies.Osteophytic spurring anteriorly at L2-L3 with mild disc space narrowing isnoted. Vertebral body height, intervertebral disc space height, and bonemineralization are all otherwise normal. There is no halina orretrolisthesis.The SI joints are symmetric. No suspicious abdominal calcifications arepresent.IMPRESSION:Gross anatomic alignment and no hardware complication post L4-L5 posteriorlaminectomy and fusion.Interpreting Physician: LG GARCIA M.D.Trans: dcarr : cc: Normal [facility] Glucose, POCon 05-13-2018 Glucose mass conc 314 mg/dL High 70-105 [facility] Comment on above: Performed By: #### G LUX ####Unless otherwise noted, all testing performed by [address] [phone]: [id number] Director: Mike Pitts M.D. Glucose mass conc 220 mg/dL High 70-105 [facility] Comment on above: Performed By: #### G LUX ####Unless otherwise noted, all testing performed by [address] [phone]: [id number] Director: Mike Pitts M.D. Hgb and Hcton 05-13-2018 Hematocrit Auto Volume Fraction (Bld) 25.7 % Low 34.4-44.8 [facility] Comment on above: Performed By: #### G LUX ####Unless otherwise noted, all testing performed by [place] [id number]: [id number] Director: Mike Pitts M.D. Hemoglobin mass conc (Bld) 9.0 g/dL Low 11.6-15.4 [facility] Comment on above: Performed By: #### G LUX ####Unless otherwise noted, all testing performed by [place] [id number]: [id number] Director: Mike Pitts M.D. Glucose, POCon 05-12-2018 Glucose mass conc 195 mg/dL High 70-105 [facility] Comment on above: Performed By: #### G LUX ####Unless otherwise noted, all testing performed by [address] [id number]: [id number] Director: Mike Pitts M.D. Glucose mass conc 227 mg/dL High 70-105 [facility] Comment on above: Performed By: #### G LUX ####Unless otherwise noted, all testing performed by [address] [phone]: [id number] Director: Mike Pitts M.D. Glucose mass conc 241 mg/dL High 70-105 [facility] Comment on above: Performed By: #### G LUX ####Unless otherwise noted, all testing performed by [address] [phone]: [id number] Director: Mike Pitts M.D. Glucose mass conc 211 mg/dL High 70-105 [facility] Comment on above: Performed By: #### G LUX ####Unless otherwise noted, all testing performed by [address] [phone]: [id number] Director: Mike Pitts M.D. Hgb and Hcton 05-12-2018 Hematocrit Auto Volume Fraction (Bld) 26.9 % Low 34.4-44.8 [facility] Comment on above: Performed By: #### C HEM8, CBCDIF ####Unless otherwise noted, all testing performed by [address] [id number]: [id number] Director: Mike Pitts M.D. Hemoglobin mass conc (Bld) 9.1 g/dL Low 11.6-15.4 [facility] Comment on above: Performed By: #### C HEM8, CBCDIF ####Unless otherwise noted, all testing performed by [address] [phone]: [id number] Director: Mike Pitts M.D. Glucose, POCon 05-11-2018 Glucose mass conc 231 mg/dL High 70-105 [facility] Comment on above: Performed By: #### C HEM8, CBCDIF ####Unless otherwise noted, all testing performed by [address], [place] [phone]: [id number] Director: Mike Pitts M.D. Glucose mass conc 336 mg/dL High [address] [place] [address] Comment on above: Performed By: #### C HEM8, CBCDIF ####Unless otherwise noted, all testing performed by [address] [phone]: [id number] Director: Mike Pitts M.D. Glucose mass conc 363 mg/dL High [address] [place] [address] Comment on above: Performed By: #### C HEM8, CBCDIF ####Unless otherwise noted, all testing performed by [address]8509CLIA: [id number] Director: Mike Pitts M.D. Glucose mass conc 309 mg/dL [address] Comment on above: Performed By: #### C HEM8, CBCDIF ####Unless otherwise noted, all testing performed by [address] [phone]: [id number] Director: Mike Pitts M.D. Glucose mass conc 322 mg/dL High [address] [place] [address] Comment on above: Performed By: #### C HEM8, CBCDIF ####Unless otherwise noted, all testing performed by [address]8509CLIA: [id number] Director: Mike Pitts M.D. Hgb and Hcton 05-11-2018 Hematocrit Auto Volume Fraction (Bld) 25.5 % Low 34.4-44.8 [facility] Comment on above: Performed By: #### C HEM8, CBCDIF ####Unless otherwise noted, all testing performed by [address] [id number]: [id number] Director: Mike Pitts M.D. Hemoglobin mass conc (Bld) 8.7 g/dL Low 11.6-15.4 [facility] Comment on above: Performed By: #### C HEM8, CBCDIF ####Unless otherwise noted, all testing performed by [place] [phone]: [id number] Director: Mike Pitts M.D. Glucose, POCon 05-10-2018 Glucose mass conc 268 mg/dL High 70-105 [facility] Comment on above: Performed By: #### C HEM8, CBCDIF ####Unless otherwise noted, all testing performed by [place] [phone]: [id number] Director: Mike Pitts M.D. Glucose mass conc 303 mg/dL High [address] [facility] Comment on above: Performed By: #### C HEM8, CBCDIF ####Unless otherwise noted, all testing performed by [address] [phone]: [id number] Director: Mike Pitts M.D. Glucose mass conc 331 mg/dL High 70-105 [facility] Comment on above: Performed By: #### C HEM8, CBCDIF ####Unless otherwise noted, all testing performed by [address] [phone]: [id number] Director: Mike Pitts M.D. Glucose mass conc 354 mg/dL High [address] Comment on above: Performed By: #### G LUX ####Unless otherwise noted, all testing performed by [address]8509CLIA: [id number] Director: Mike Pitts M.D. Glucose mass conc 279 mg/dL High [address] [place] [address] Comment on above: Performed By: #### C HEM8, CBCDIF ####Unless otherwise noted, all testing performed by [address]8509CLIA: [id number] Director: Mike Pitts M.D. Glucose mass conc 269 mg/dL High [address] Comment on above: Performed By: #### C HEM8, CBCDIF ####Unless otherwise noted, all testing performed by [place] [phone]: [id number] Director: Mike Pitts M.D. Glucose mass conc 296 mg/dL High [address] Comment on above: Performed By: #### C HEM8, CBCDIF ####Unless otherwise noted, all testing performed by [address]8509CLIA: [id number] Director: Mike Pitts M.D. Glucose mass conc 335 mg/dL High [address] Comment on above: Performed By: #### C HEM8, CBCDIF ####Unless otherwise noted, all testing performed by [address] [phone]: [id number] Director: Mike Pitts M.D. Hgb and Hcton 05-10-2018 Hematocrit Auto Volume Fraction (Bld) 30.6 % Low 34.4-44.8 [facility] Comment on above: Performed By: #### C HEM8, CBCDIF ####Unless otherwise noted, all testing performed by [address] [phone]: [id number] Director: Mike Pitts M.D. Hemoglobin mass conc (Bld) 10.4 g/dL Low 11.6-15.4 [facility] Comment on above: Performed By: #### C HEM8, CBCDIF ####Unless otherwise noted, all testing performed by [address] [phone]: [id number] Director: Mike Pitts M.D. SPINE LUMBAR 2 OR 3 VIEWSon 05-10-2018 SPINE LUMBAR 2 OR 3 VIEWS Final ReportAccession No: [id number] Performed: May 10 2018 12:05PMExamination: SPINE LUMBAR 2 OR 3 VIEWSEXAM: SPINE LUMBAR 2 OR 3 VIEWSCLINICAL STATEMENT: L4-L5 laminectomy and fusionCOMPARISON: Lumbar spine MRI dated 03/13/2018TECHNIQUE: Intraoperative fluoroscopic frontal and lateral views of thelowlumbar spine were submitted for interpretation. Fluoroscopy time: 43.7seconds.Cumulative dose: 46.74 mGy. Number of images: 2.FINDINGS: Submitted views demonstrate postsurgical changes of L4-I1tdrwqznrsdzqifq fusion using bilateral rods and pedicle screws. There arelaminectomychanges at L4. Alignment is maintained in the visualized lumbar spine. Noevidence for acute fracture, compression deformity, or acute hardwarecomplication. Drainage catheter appears to be present in the posteriorsofttissues.IMPRESSIO N:Intraoperative images of the lumbar spine as detailed above.Interpreting Physician: THADDEUS MARI M.D.Trans: n/a : cc: Normal [facility] Type and Jones 05-10-2018 Type and Cross ABO: ORh: PositiveAn tibody Screen: NegativeLeuko-reduced RBCs: PRBC, Leukopoor [id number] OPOS [id number] Crossmatch data- XM 05/10/2018 06[facility] 05/14/2018 05:42 JKCARROLLLeuko-reduced RBCs: PRBC, Leukopoor [id number] OPOS [id number] Crossmatch data- XM 05/10/2018 06:55 [facility] RE 05/14/2018 05:[facility] Comment on above: Performed By: #### C HEM8, CBCDIF ####Unless otherwise noted, all testing performed by [address] [phone]: [id number] Director: Mike Pitts M.D. Basic Metabolic Panelon 08-0 Calcium mass conc 8.7 mg/dL Normal 8.4-10.2 [facility] Comment on above: Performed By: #### C HEM8, CBCDIF ####Unless otherwise noted, all testing performed by [address] [phone]: [id number] Director: Mike Pitts M.D. Chloride molar conc 105 mmol/L Normal 98-108 [facility] Comment on above: Performed By: #### C HEM8, CBCDIF ####Unless otherwise noted, all testing performed by [facility] [place] [phone]: [id number] Director: Mike Pitts M.D. CO2 molar conc 30 mmol/L Normal 21-32 [facility] Comment on above: Performed By: #### C HEM8, CBCDIF ####Unless otherwise noted, all testing performed by [address] [phone]: [id number] Director: Mike Pitts M.D. Creatinine mass conc 0.78 mg/dL Normal 0.40-1.10 [facility] Comment on above: Performed By: #### C HEM8, CBCDIF ####Unless otherwise noted, all testing performed by [place] [phone]: [id number] Director: Mike Pitts M.D. GFR/1.73 sq M predicted among blacks MDRD vol rate/area (S/P/Bld) mL/min/{1.73_m2} Normal [facility] Comment on above: GFR Calc Result Comment: Afri can [place] GFR Calc Performed By: #### C HEM8, CBCDIF ####Unless otherwise noted, all testing performed by [address] [phone]: [id number] Director: Mike Pitts M.D. GFR/1.73 sq M predicted among non-blacks MDRD vol rate/area (S/P/Bld) mL/min/{1.73_m2} Normal [facility] Comment on above: Non- GFR Calc eGFR is an estimated Glomerular Filtration Rate based on the value of the patient's serum creatinine. In outpatients, eGFR should be used as a helpful tool in screening for CKD. In inpatients or patients with acute renal failure, eGFR represents the GFR at the moment of the draw and should be used with caution. Result Comment: Non- GFR CalceGFR is an estimated Glomerular Filtration Rate based on the valueof the patient's serum creatinine. In outpatients, eGFR should be usedas a helpful tool in screening for CKD. In inpatients or patients withacute renal failure, eGFR represents the GFR at the moment of the drawand should be used with caution. Performed By: #### C HEM8, CBCDIF ####Unless otherwise noted, all testing performed by [address] [phone]: [id number] Director: Mike Pitts M.D. Glucose mass conc 82 mg/dL Normal 70-99 [facility] Comment on above: This test result lena ht be falsely depressed or falsely elevated on samples drawn from patients taking Sulfasalazine and Sulfapyridine. Venipuncture should occur prior to taking either of these drugs. Result Comment: This test result might be falsely depressed or falsely elevated onsamples drawn from patients taking Sulfasalazine and Sulfapyridine.Venipuncture should occur prior to taking either of these drugs. Performed By: #### C HEM8, CBCDIF ####Unless otherwise noted, all testing performed by [address] [phone]: [id number] Director: Mike Pitts M.D. Potassium molar conc 3.5 mmol/L Normal 3.5-5.1 [facility] Comment on above: Performed By: #### C HEM8, CBCDIF ####Unless otherwise noted, all testing performed by [address] [phone]: [id number] Director: Mike Pitts M.D. Sodium molar conc 140 mmol/L Normal 135-145 [facility] Comment on above: Performed By: #### C HEM8, CBCDIF ####Unless otherwise noted, all testing performed by [address] [phone]: [id number] Director: Mike Pitts M.D. Urea nitrogen mass conc 8 mg/dL Normal 8-25 [facility] Comment on above: Performed By: #### C HEM8, CBCDIF ####Unless otherwise noted, all testing performed by [address] [phone]: [id number] Director: Mike Pitts M.D. CBC and Differentialon 04-19 Basophils Auto #/vol (Bld) 0.1 K/mcL Invalid Interpretation Code 0 - 0.2 [facility] Basophils/100 WBC Auto (Bld) 0.6 % Normal [facility] Comment on above: Performed By: #### C HEM8, CBCDIF ####Unless otherwise noted, all testing performed by [address] [phone]: [id number] Director: Mike Pitts M.D. Eosinophils Auto #/vol (Bld) 0.3 K/mcL Invalid Interpretation Code 0 - 0.5 [facility] Eosinophils/100 WBC Auto (Bld) 3.9 % Normal [facility] Comment on above: Performed By: #### C HEM8, CBCDIF ####Unless otherwise noted, all testing performed by [address] [phone]: [id number] Director: Mike Pitts M.D. Erythrocyte distribution width Auto Ratio (RBC) 14.1 % Normal 10.0-14.4 [facility] Comment on above: Performed By: #### C HEM8, CBCDIF ####Unless otherwise noted, all testing performed by [address] [phone]: [id number] Director: Mike Pitts M.D. Hematocrit Auto Volume Fraction (Bld) 34.9 % Normal 34.4-44.8 [facility] Comment on above: Performed By: #### C HEM8, CBCDIF ####Unless otherwise noted, all testing performed by [address] [phone]: [id number] Director: Mike Pitts M.D. Hemoglobin mass conc (Bld) 12.0 g/dL Normal 11.6-15.4 [facility] Comment on above: Performed By: #### C HEM8, CBCDIF ####Unless otherwise noted, all testing performed by [address] [phone]: [id number] Director: Mike Pitts M.D. Lymphocytes Auto #/vol (Bld) 1.7 K/mcL Invalid Interpretation Code 1.0 - 3.7 [facility] Lymphocytes/100 WBC Auto (Bld) 19.8 % Normal [facility] Comment on above: Performed By: #### C HEM8, CBCDIF ####Unless otherwise noted, all testing performed by [address] [phone]: [id number] Director: Mike Pitts M.D. MCH Auto Entitic mass (RBC) 29.2 pg Normal 27.9-33.9 [facility] Comment on above: Performed By: #### C HEM8, CBCDIF ####Unless otherwise noted, all testing performed by [address] [place] [phone]: [id number] Director: Mike Pitts M.D. MCHC Auto mass conc (RBC) 34.5 g/dL Normal 33.1-35.1 [facility] Comment on above: Performed By: #### C HEM8, CBCDIF ####Unless otherwise noted, all testing performed by [address] [phone]: [id number] Director: Mike Pitts M.D. MCV Auto Entitic volume (RBC) 84.7 fL Normal 82.6-98.9 [facility] Comment on above: Performed By: #### C HEM8, CBCDIF ####Unless otherwise noted, all testing performed by [address] [phone]: [id number] Director: Mike Pitts M.D. Monocytes Auto #/vol (Bld) 0.6 K/mcL Invalid Interpretation Code 0.1 - 0.6 [facility] Monocytes/100 WBC Auto (Bld) 7.5 % Normal [facility] Comment on above: Performed By: #### C HEM8, CBCDIF ####Unless otherwise noted, all testing performed by [address] [phone]: [id number] Director: Mike Pitts M.D. Neutrophils Auto #/vol (Bld) 5.8 K/mcL Invalid Interpretation Code 1.2 - 6.9 [facility] Platelet mean volume Auto Entitic volume (Bld) 8.4 fL Normal 7.0-10.6 [facility] Comment on above: Performed By: #### C HEM8, CBCDIF ####Unless otherwise noted, all testing performed by [address], [place] [phone]: [id number] Director: Mike Pitts M.D. Platelets Auto #/vol (Bld) 316 K/mcL Invalid Interpretation Code 162 - 402 [facility] RBC Auto #/vol (Bld) 4.12 M/mcL Invalid Interpretation Code 3.7 - 5.0 [facility] Segmented Neut 68.2 % Invalid Interpretation Code [facility] WBC Auto #/vol (Bld) 8.5 K/mcL Invalid Interpretation Code 3.4 - 10.6 [facility] CBC with Diffon 04-19-2018 Basophils Auto #/vol (Bld) 0.1 K/mcL Normal 0-0.2 [facility] Comment on above: Performed By: #### C HEM8, CBCDIF ####Unless otherwise noted, all testing performed by [address] [phone]: [id number] Director: Mike Pitts M.D. Eosinophils Auto #/vol (Bld) 0.3 K/mcL Normal 0-0.5 [facility] Comment on above: Performed By: #### C HEM8, CBCDIF ####Unless otherwise noted, all testing performed by [address] [phone]: [id number] Director: Mike Pitts M.D. Lymphocytes Auto #/vol (Bld) 1.7 K/mcL Normal 1.0-3.7 [facility] Comment on above: Performed By: #### C HEM8, CBCDIF ####Unless otherwise noted, all testing performed by [address] [phone]: [id number] Director: Mike Pitts M.D. Monocytes Auto #/vol (Bld) 0.6 K/mcL Normal 0.1-0.6 [facility] Comment on above: Performed By: #### C HEM8, CBCDIF ####Unless otherwise noted, all testing performed by [address] [phone]: [id number] Director: Mike Pitts M.D. Neutrophils Auto #/vol (Bld) 5.8 K/mcL Normal 1.2-6.9 [facility] Comment on above: Performed By: #### C HEM8, CBCDIF ####Unless otherwise noted, all testing performed by [address]8509CLIA: [id number] Director: Mike Pitts M.D. Platelets Auto #/vol (Bld) 316 K/mcL Normal 162-402 [facility] Comment on above: Performed By: #### C HEM8, CBCDIF ####Unless otherwise noted, all testing performed by [address]8509CLIA: [id number] Director: Mike Pitts M.D. RBC Auto #/vol (Bld) 4.12 M/mcL Normal 3.7-5.0 [facility] Comment on above: Performed By: #### C HEM8, CBCDIF ####Unless otherwise noted, all testing performed by [address]8[address]CLIA: [id number] Director: Mike Pitts M.D. Segmented Neut % 68.2 % Normal [facility] Comment on above: Performed By: #### C HEM8, CBCDIF ####Unless otherwise noted, all testing performed by [address] [phone]: [id number] Director: Mike Pitts M.D. WBC Auto #/vol (Bld) 8.5 K/mcL Normal 3.4-10.6 [facility] Comment on above: Performed By: #### C HEM8, CBCDIF ####Unless otherwise noted, all testing performed by [address] [phone]: [id number] Director: Mike Pitts M.D. PAT Type and Screenon 2017 ABO group Nom (Bld) O Invalid Interpretation Code [facility] Antibody Screen Negative Invalid Interpretation Code [facility] PAT Type and Screen Negative Normal [facility] Comment on above: Performed By: #### C HEM8, CBCDIF ####Unless otherwise noted, all testing performed by [address] [phone]: [id number] Director: Mike Pitts M.D. Rh Type Positive Invalid Interpretation Code [facility] MRSA Screenon 03-26-2018 Methicillin resistant Staphylococcus aureus (MRSA) DNA [Presence] in Unspecified specimen by LUCAS with probe detection Test Name: MRSA Screen Culture Status: Final MRSA Screen: Negative Normal [facility] Comment on above: Performed By: #### M RSASCR ####Unless otherwise noted, all testing performed by [address] [phone]: [id number] Director: Mike Pitts M.D. Creatinine with eGFRon 03-13 Creatinine 0.7 mg/dL Normal 0.40-1.10 [facility] Comment on above: Performed By: #### C REAT ####Unless otherwise noted, all testing performed by [address] [phone]: [id number] Director: Mike Pitts M.D. eGFR (black) mL/min/{1.73_m2} Normal [facility] Comment on above: Performed By: #### C REAT ####Unless otherwise noted, all testing performed by [address] [phone]: [id number] Director: Mike Pitts M.D. eGFR (non-black) mL/min/{1.73_m2} Normal [facility] Comment on above: eGFR is an estimated Glomerular Filtration Rate based on the value of the patient's serum creatinine. In outpatients, eGFR should be used as a helpful tool in screening for CKD. In inpatients or patients with acute renal failure, eGFR represents the GFR at the moment of the draw and should be used with caution. Result Comment: eGFR is an estimated Glomerular Filtration Rate based on the valueof the patient's serum creatinine. In outpatients, eGFR should be usedas a helpful tool in screening for CKD. In inpatients or patients withacute renal failure, eGFR represents the GFR at the moment of the drawand should be used with caution. Performed By: #### C REAT ####Unless otherwise noted, all testing performed by [address] [phone]: [id number] Director: Mike Pitts M.D. MRI LUMBAR SPINE W/OANDW/ CO NTon 03-13-2018 MRI LUMBAR SPINE W/OANDW/ CONT Final ReportAccession No: [id number] Performed: Mar 13 2018 9:19AMExamination: MRI LUMBAR SPINE W/OANDW/ CONTCLINICAL HISTORY: Low back pain, which radiates into the bilateral hips.Priorlumbar spine surgery in October 2017.MRI LUMBAR SPINE WITH AND WITHOUT CONTRAST:TECHNIQUE: Sagittal STIR, T1, T2, axial T1 and T2-weighted images wereobtainedthrough the lumbar spine. Following the administration of 20 mL of IVDotaremgadolinium contrast, additional sagittal and axial T1-weighted images wereobtained.COMPARISON: MRI of 10/06/2017.FINDINGS: The conus medullaris terminates normally at the L1 level andthevisualized distal spinal cord appears normal. No abnormal enhancement ispresent within the thecal sac on the postcontrast images.The lumbar spine is in anatomic alignment, except for 3 mm of grade 1retrolisthesis of L2 on L3. Mild Modic type II fatty marrow degenerativeendplate changes are noted in the L2-L3 vertebral endplates. A couple ofsubcentimeter benign hemangiomas with hyperintense T1/T2 signal remainunchanged in the right medullary spaces of the L1 and L2 vertebralbodies. Thebone marrow is otherwise normal in signal. No vertebral body compressionfracture. There is disc desiccation and mild loss of disc height at theL2-U0dkwjcwp L4-L5 levels. No abnormal fluid collection is seen. Nonspecificedemais noted in the posterior subcutaneous soft tissues.L5-S1: A minimal annular bulge and mild facet arthrosis remain unchanged,without central spinal canal stenosis or foraminal stenosis.L4-L5: Interval right laminectomy and probable discectomy have beenperformed,with associated postoperative enhancing fibrosis in the laminectomydefect.Severe bilateral facet arthrosis and thickening of ligamenta flava arepresent,with a new 6 mm x 4 mm right facet joint synovial cyst which extends intotheright dorsal aspect of the spinal canal. A recurrent rightparacentral/lateralrecess /foraminal disc extrusion is suspected with mild inferior migrationandpostcontrast enhancement, measuring 5 mm AP x 13 mm craniocaudal,contributingto severe central spinal canal stenosis (4.5 mm AP diameter of the thecalsac),narrowing of the right lateral recess with contact of the right L5 nerveroot,and moderate right and mild left foraminal stenosis.L3-L4: A broad-based disc protrusion, prominence of the dorsal epiduralfat andmild facet arthrosis have progressed, resulting in moderate central spinalcanal stenosis (7 mm AP diameter of the thecal sac). No significantforaminalstenosis.L 2-L3: 3 mm of grade 1 retrolisthesis, a broad-based disc protrusion withsmallendplate osteophytes have progressed, and together with prominence of thedorsal epidural fat this results in moderate central spinal canalstenosis (6.4mm AP diameter of the thecal sac) and mild bilateral foraminal stenosis.Mildfacet arthrosis.T11-T12 through L1-L2 levels: No disc herniation or stenosis.IMPRESSION:1. L4-L5: Interval right laminectomy and probable discectomy. Severe facetarthrosis and thickening of ligamenta flava, with a new 6 mm right facetjointsynovial cyst which extends into the right dorsal spinal canal. Arecurrentright paracentral/lateral recess/foraminal disc extrusion is suspected,contributing to severe central spinal canal stenosis, narrowing of therightlateral recess with contact of the right L5 nerve root, and moderateright andmild left foraminal stenosis.2. Moderate L2-L3 and L3-L4 degenerative disc changes have progressed, andtogether with prominence of the dorsal epidural fat this results inmoderatecentral spinal canal stenosis and L2-L3 mild bilateral foraminal stenosis.Interpreting Physician: GLORIA MCDONOUGH M.D.Trans: bminni : cc: Normal [facility] MAMMOGRAM BILAT DIAGNOS, DIG ITALon 03-12-2018 MAMMOGRAM BILAT DIAGNOS, DIGITAL Final ReportAccession No. [id number] Performed: Mar 12 2018 12:51PMExamination: MAMMOGRAM BILAT DIAGNOS, DIGITALEXAM TYPE: MAMMOGRAM BILAT DIAGNOS, DIGITALEXAM DATE AND TIME: 03/12/2018 12:51 PM.CLINICAL HISTORY: 52-year-old female presenting for screening.COMPARISON: 10/12/2017, 10/07/2017, 03/19/2017, and 03/11/2017.TECHNIQUE: Bilateral CC and MLO views.FINDINGS: The breasts are heterogeneously dense, which may obscure smallmasses. Biopsy clip is demonstrated within the upper outer quadrant oftheleft breast at the posterior depth. No evidence of increased or suspiciousregional microcalcifications. There is redemonstration of a cluster ofroundedmicrocalcifications within the superior left breast at mid depth, onlywellseen on the left ML and MLO projections.No suspicious findings within the right breast.These mammograms were interpreted with the aid of CAD.IMPRESSION:1. Biopsy clip within the upper outer quadrant of the left breast at theposterior depth. No suspicious or increasing regional microcalcifications.2. Cluster of rounded microcalcifications involving the superior leftbreastat mid depth, only well seen on the left ML and MLO projections. Stable insize, quantity and appearance compared to 03/19/2017. The findings areprobablybenign. Recommend 6 month follow-up to ensure stability.BI-RADS 3 - Findings are probably benign. A short interval followup isrecommended in 6 months.OVERALL ASSESSMENT- PROBABLY BENIGNA letter of notification will be sent to the patient regarding theresults.TECHNOLOGIST: Cierra WilloughbysInterpreting Radiologist: RONALD DURAN D.O.Trans: abond : cc: Normal [facility] POC Glycosylated Hemoglobin (Hb A1C)on 02-24-2018 Hemoglobin A1c/Hemoglobin.tot al mass fraction (Bld) 10.3 % Abnormal 4 - 6 % [facility] Interpretation and review of laboratory results Abnormal Invalid Interpretation Code [facility] Ambulatory referral to Neuro logyon 12-30-2017 Ambulatory referral to Neurology emg 12/2017 Invalid Interpretation Code [facility] APTTon 11-18-2017 aPTT 27 s Normal 23.0-34.0 [facility] Comment on above: Result Comment: Yesica clay therapeutic range for PTT is 68-104 sec. Performed By: #### E DCTNI, DDIMR, PT, CBCWOD, CHEM8, PTT ####Unless otherwise noted, all testing performed by [facility] [address] [facility] [place], [place] [phone]: [id number] Director: Mike Pitts M.D. BLDPATHon 11-18-2017 Eosinophils Auto #/vol (Bld) Name: JUANA HANDY Peripheral Blood Diagnosis Absolute eosinophilia. Possible causes include allergic or drug reaction, cutaneous disorders, collagen vascular disease, parasite infection, pulmonary diseases including sarcoidosis, or underlying neoplasm. Suggest clinical correlation. Electronically Signed By Hematology Department , Testing performed at [facility] (Case signed 11/18/2017) Normal [facility] Basic Metabolic Panelon 03-0 Calcium 8.7 mg/dL Normal 8.4-10.2 [facility] Comment on above: Performed By: #### C RPQT, CHEM8, CTNI, MG ####Unless otherwise noted, all testing performed by [place] [phone]: [id number] Director: Mike Pitts M.D. Chloride 103 mmol/L Normal 98-108 [facility] Comment on above: Performed By: #### C RPQT, CHEM8, CTNI, MG ####Unless otherwise noted, all testing performed by [place] [phone]: [id number] Director: Mike Pitts M.D. CO2 25 mmol/L Normal 21-32 [facility] Comment on above: Performed By: #### C RPQT, CHEM8, CTNI, MG ####Unless otherwise noted, all testing performed by [address] [phone]: [id number] Director: Mike Pitts M.D. Creatinine 0.93 mg/dL Normal 0.40-1.10 [facility] Comment on above: Performed By: #### C RPQT, CHEM8, CTNI, MG ####Unless otherwise noted, all testing performed by [address] [phone]: [id number] Director: Mike Pitts M.D. eGFR (black) mL/min/{1.73_m2} Normal [facility] Comment on above: Result Comment: Afri can [place] GFR Calc Performed By: #### C RPQT, CHEM8, CTNI, MG ####Unless otherwise noted, all testing performed by [address] [phone]: [id number] Director: Mike Pitts M.D. eGFR (non-black) mL/min/{1.73_m2} Normal [facility] Comment on above: Result Comment: Non- GFR CalceGFR is an estimated Glomerular Filtration Rate based on the valueof the patient's serum creatinine. In outpatients, eGFR should be usedas a helpful tool in screening for CKD. In inpatients or patients withacute renal failure, eGFR represents the GFR at the moment of the drawand should be used with caution. Performed By: #### C RPQT, CHEM8, CTNI, MG ####Unless otherwise noted, all testing performed by [address] [phone]: [id number] Director: Mike Pitts M.D. Glucose 341 mg/dL High 70 - 99 mg/dL [facility] Glucose mass conc 341 mg/dL High 70-99 [facility] Comment on above: Result Comment: This test result might be falsely depressed or falsely elevated onsamples drawn from patients taking Sulfasalazine and Sulfapyridine.Venipuncture should occur prior to taking either of these drugs. Performed By: #### C RPQT, CHEM8, CTNI, MG ####Unless otherwise noted, all testing performed by [address] [phone]: [id number] Director: Mike Pitts M.D. Potassium 3.9 mmol/L Normal 3.5-5.1 [facility] Comment on above: Performed By: #### C RPQT, CHEM8, CTNI, MG ####Unless otherwise noted, all testing performed by [address] [phone]: [id number] Director: Mike Pitts M.D. Sodium 136 mmol/L Normal 135-145 [facility] Comment on above: Performed By: #### C RPQT, CHEM8, CTNI, MG ####Unless otherwise noted, all testing performed by [place] [phone]: [id number] Director: Mike Pitts M.D. Troponin I No Biomarker evidenc e of myocardial injury within the past 14 hours. Normal [facility] Comment on above: Performed By: #### C RPQT, CHEM8, CTNI, MG ####Unless otherwise noted, all testing performed by [place] [phone]: [id number] Director: Mike Pitts M.D. Urea nitrogen 15 mg/dL Normal 8-25 [facility] Comment on above: Performed By: #### C RPQT, CHEM8, CTNI, MG ####Unless otherwise noted, all testing performed by [place] [phone]: [id number] Director: Mike Pitts M.D. Calcium 9.3 mg/dL Normal 8.4-10.2 [facility] Comment on above: Performed By: #### E DCTNI, DDIMR, PT, CBCWOD, CHEM8, PTT ####Unless otherwise noted, all testing performed by [place] [phone]: [id number] Director: Mike Pitts M.D. Chloride 100 mmol/L Normal 98-108 [facility] Comment on above: Performed By: #### E DCTNI, DDIMR, PT, CBCWOD, CHEM8, PTT ####Unless otherwise noted, all testing performed by [place] [phone]: [id number] Director: Mike Pitts M.D. CO2 27 mmol/L Normal 21-32 [facility] Comment on above: Performed By: #### E DCTNI, DDIMR, PT, CBCWOD, CHEM8, PTT ####Unless otherwise noted, all testing performed by [place] [phone]: [id number] Director: Mike Pitts M.D. Creatinine 1.13 mg/dL High 0.40-1.10 [facility] Comment on above: Performed By: #### E DCTNI, DDIMR, PT, CBCWOD, CHEM8, PTT ####Unless otherwise noted, all testing performed by [place] [phone]: [id number] Director: Mike Pitts M.D. eGFR (black) mL/min/{1.73_m2} Normal [facility] Comment on above: Result Comment: Afri can [place] GFR Calc Performed By: #### E DCTNI, DDIMR, PT, CBCWOD, CHEM8, PTT ####Unless otherwise noted, all testing performed by [place] [phone]: [id number] Director: Mike Hong, M.D. eGFR (non-black) 50 mL/min/{1.73_m2} Low >60 [facility] Comment on above: Result Comment: Non- GFR CalceGFR is an estimated Glomerular Filtration Rate based on the valueof the patient's serum creatinine. In outpatients, eGFR should be usedas a helpful tool in screening for CKD. In inpatients or patients withacute renal failure, eGFR represents the GFR at the moment of the drawand should be used with caution. Performed By: #### E DCTNI, DDIMR, PT, CBCWOD, CHEM8, PTT ####Unless otherwise noted, all testing performed by [address] [phone]: [id number] Director: Mike Pitts M.D. Glucose 422 mg/dL Critically high 70 - 99 mg/dL [facility] Glucose mass conc 422 mg/dL Critically high 70-99 [facility] [place] Comment on above: Result Comment: [id number] CALLED CRITICAL RESULTS ON 11/18/2017 @ 0000 TO AND READ BACK BYPOP ESPOSITO in [id number] CALLED CRITICAL RESULTS ON 11/18/2017 @ 0000TO AND READ BACK BY POP ESPOSITO in Q1IIedx test result might be falsely depressed or falsely elevated onsamples drawn from patients taking Sulfasalazine and Sulfapyridine.Venipuncture should occur prior to taking either of these drugs. Performed By: #### E DCTNI, DDIMR, PT, CBCWOD, CHEM8, PTT ####Unless otherwise noted, all testing performed by [address] [phone]: [id number] Director: Mike Pitts M.D. Interpretation and review of laboratory results Abnormal Invalid Interpretation Code [facility] Potassium 4.5 mmol/L Normal 3.5-5.1 [facility] Comment on above: Performed By: #### E DCTNI, DDIMR, PT, CBCWOD, CHEM8, PTT ####Unless otherwise noted, all testing performed by [address] [phone]: [id number] Director: Mike Pitts M.D. Sodium 135 mmol/L Normal 135-145 [facility] Comment on above: Performed By: #### E DCTNI, DDIMR, PT, CBCWOD, CHEM8, PTT ####Unless otherwise noted, all testing performed by [address] [phone]: [id number] Director: Mike Pitts M.D. Urea nitrogen 16 mg/dL Normal 8-25 [facility] Comment on above: Performed By: #### E DCTNI, DDIMR, PT, CBCWOD, CHEM8, PTT ####Unless otherwise noted, all testing performed by [address] [phone]: [id number] Director: Mike Pitts M.D. Blood Smear Reviewon 018 Blood Smear Review See Pathology Report. Normal [facility] Comment on above: Performed By: #### C BCDIF, BSREV ####Unless otherwise noted, all testing performed by [address] [phone]: [id number] Director: Mike Pitts M.D. CBCon 11-18-2017 Erythrocytes (RBC) 4.52 M/mcL Invalid Interpretation Code 3.7 - 5.0 [facility] Hematocrit (HCT) 38.7 % Normal 34.4-44.8 [facility] Comment on above: Performed By: #### E DCTNI, DDIMR, PT, CBCWOD, CHEM8, PTT ####Unless otherwise noted, all testing performed by [address] [phone]: [id number] Director: Mike Pitts M.D. Hemoglobin (HGB) 12.6 g/dL Normal 11.6-15.4 [facility] Comment on above: Performed By: #### E DCTNI, DDIMR, PT, CBCWOD, CHEM8, PTT ####Unless otherwise noted, all testing performed by [address] [phone]: [id number] Director: Mike Pitts M.D. MCH 28.0 pg Normal 27.9-33.9 [facility] Comment on above: Performed By: #### E DCTNI, DDIMR, PT, CBCWOD, CHEM8, PTT ####Unless otherwise noted, all testing performed by [address] [phone]: [id number] Director: Mike Pitts M.D. MCHC 32.7 g/dL Low 33.1-35.1 [facility] Comment on above: Performed By: #### E DCTNI, DDIMR, PT, CBCWOD, CHEM8, PTT ####Unless otherwise noted, all testing performed by [address] [phone]: [id number] Director: Mike Pitts M.D. MCV 85.7 fL Normal 82.6-98.9 [facility] Comment on above: Performed By: #### E DCTNI, DDIMR, PT, CBCWOD, CHEM8, PTT ####Unless otherwise noted, all testing performed by [address] [phone]: [id number] Director: Mike Pitts M.D. Platelet mean volume (PMV) 8.7 fL Normal 7.0-10.6 [facility] Comment on above: Performed By: #### E DCTNI, DDIMR, PT, CBCWOD, CHEM8, PTT ####Unless otherwise noted, all testing performed by [address] [phone]: [id number] Director: Mike Pitts M.D. Platelets 293 K/mcL Invalid Interpretation Code 162 - 402 [facility] RDW-CA 14.0 % Normal 10.0-14.4 [facility] Comment on above: Performed By: #### E DCTNI, DDIMR, PT, CBCWOD, CHEM8, PTT ####Unless otherwise noted, all testing performed by [address] [phone]: [id number] Director: Mike Pitts M.D. WBC (Leukocytes) 9.1 K/mcL Invalid Interpretation Code 3.4 - 10.6 [facility] CBC and Differentialon 11-18 Basophils 0.7 % Invalid Interpretation Code [facility] Basophils 0.1 K/mcL Invalid Interpretation Code 0 - 0.2 [facility] Eosinophils 1.1 K/mcL High 0 - 0.5 [facility] Erythrocytes (RBC) 4.33 M/mcL Invalid Interpretation Code 3.7 - 5.0 [facility] Hematocrit (HCT) 36.8 % Normal 34.4-44.8 [facility] Comment on above: Performed By: #### C BCDIF, BSREV ####Unless otherwise noted, all testing performed by [address] [phone]: [id number] Director: Mike Pitts M.D. Hemoglobin (HGB) 12.1 g/dL Normal 11.6-15.4 [facility] Comment on above: Performed By: #### C SHIRLEY, BSREV ####Unless otherwise noted, all testing performed by [place] [phone]: [id number] Director: Mike Pitts M.D. Lymphocytes 2.5 K/mcL Invalid Interpretation Code 1.0 - 3.7 [facility] MCH 28.0 pg Normal 27.9-33.9 [facility] Comment on above: Performed By: #### C SHIRLEY, BSREV ####Unless otherwise noted, all testing performed by [address]CLIA: [id number] Director: Mike Pitts M.D. MCHC 33.0 g/dL Low 33.1-35.1 [facility] Comment on above: Performed By: #### C SHIRLEY, BSREV ####Unless otherwise noted, all testing performed by [place] [phone]: [id number] Director: Mike Pitts M.D. MCV 84.8 fL Normal 82.6-98.9 [facility] Comment on above: Performed By: #### C SHIRLEY, BSREV ####Unless otherwise noted, all testing performed by [place] [phone]: [id number] Director: Mike Pitts M.D. Monocytes 0.8 K/mcL High 0.1 - 0.6 [facility] Neutrophils 5.0 K/mcL Invalid Interpretation Code 1.2 - 6.9 [facility] Platelet mean volume (PMV) 8.8 fL Normal 7.0-10.6 [facility] Comment on above: Performed By: #### C SHIRLEY, BSSELVINV ####Unless otherwise noted, all testing performed by [address] [phone]: [id number] Director: Mike Pitts M.D. Platelets 274 K/mcL Invalid Interpretation Code 162 - 402 [facility] RDW-CA 13.7 % Normal 10.0-14.4 [facility] Comment on above: Performed By: #### C SHIRLEY, BS ####Unless otherwise noted, all testing performed by [address] [phone]: [id number] Director: Mike Pitts M.D. Segmented Neut 52.8 % Invalid Interpretation Code [facility] T8 suppressor/100 cells 12.0 10*3/uL Invalid Interpretation Code [facility] T8 suppressor/100 cells 26.3 10*3/uL Invalid Interpretation Code [facility] T8 suppressor/100 cells 8.2 10*3/uL Invalid Interpretation Code [facility] WBC (Leukocytes) 9.5 K/mcL Invalid Interpretation Code 3.4 - 10.6 [facility] Interpretation and review of laboratory results Abnormal Invalid Interpretation Code [facility] CBC w/o Diffon 11-18-2017 Platelets Auto #/vol (Bld) 293 K/mcL Normal 162-402 [facility] Comment on above: Performed By: #### E DCTNI, DDIMR, PT, CBCWOD, CHEM8, PTT ####Unless otherwise noted, all testing performed by [address] [phone]: [id number] Director: Mike Pitts M.D. RBC Auto #/vol (Bld) 4.52 M/mcL Normal 3.7-5.0 [facility] Comment on above: Performed By: #### E DCTNI, DDIMR, PT, CBCWOD, CHEM8, PTT ####Unless otherwise noted, all testing performed by [address] [phone]: [id number] Director: Mike Pitts M.D. WBC Auto #/vol (Bld) 9.1 K/mcL Normal 3.4-10.6 [facility] Comment on above: Performed By: #### E DCTNI, DDIMR, PT, CBCWOD, CHEM8, PTT ####Unless otherwise noted, all testing performed by [place] [phone]: [id number] Director: Mike Pitts M.D. CBC with Diffon 11-18-2017 Basophils Auto #/vol (Bld) 0.1 K/mcL Normal 0-0.2 [facility] Comment on above: Performed By: #### C BCDIF, BSREV ####Unless otherwise noted, all testing performed by [address] [phone]: [id number] Director: Mike Pitts M.D. Basophils/100 WBC Auto (Bld) 0.7 % Normal [facility] Comment on above: Performed By: #### C BCDIF, BSREV ####Unless otherwise noted, all testing performed by [address] [phone]: [id number] Director: Mike Pitts M.D. Eosinophils Auto #/vol (Bld) 1.1 K/mcL High 0-0.5 [facility] Comment on above: Performed By: #### C BCDIF, BSREV ####Unless otherwise noted, all testing performed by [address] [phone]: [id number] Director: Mike Pitts M.D. Eosinophils/100 WBC Auto (Bld) 12.0 % Normal [facility] Comment on above: Performed By: #### C BCDIF, BSREV ####Unless otherwise noted, all testing performed by [address] [phone]: [id number] Director: Mike Pitts M.D. Lymphocytes Auto #/vol (Bld) 2.5 K/mcL Normal 1.0-3.7 [facility] Comment on above: Performed By: #### C BCDIF, BSREV ####Unless otherwise noted, all testing performed by [address] [phone]: [id number] Director: Mike Pitts M.D. Lymphocytes/100 WBC Auto (Bld) 26.3 % Normal [facility] Comment on above: Performed By: #### C BCDIF, BSREV ####Unless otherwise noted, all testing performed by [address] [phone]: [id number] Director: Mike Pitts M.D. Monocytes Auto #/vol (Bld) 0.8 K/mcL High 0.1-0.6 [facility] Comment on above: Performed By: #### C BCDIF, BSREV ####Unless otherwise noted, all testing performed by [address] [phone]: [id number] Director: Mike Pitts M.D. Monocytes/100 WBC Auto (Bld) 8.2 % Normal [facility] Comment on above: Performed By: #### C BCDIF, BSREV ####Unless otherwise noted, all testing performed by [address] [phone]: [id number] Director: Mike Pitts M.D. Neutrophils Auto #/vol (Bld) 5.0 K/mcL Normal 1.2-6.9 [facility] Comment on above: Performed By: #### C BCDIF, BSREV ####Unless otherwise noted, all testing performed by [address] [phone]: [id number] Director: Mike Pitts M.D. Platelets Auto #/vol (Bld) 274 K/mcL Normal 162-402 [facility] Comment on above: Performed By: #### C BCDIF, BSREV ####Unless otherwise noted, all testing performed by [address] [phone]: [id number] Director: Mike Pitts M.D. RBC Auto #/vol (Bld) 4.33 M/mcL Normal 3.7-5.0 [facility] Comment on above: Performed By: #### C BCDIF, BSREV ####Unless otherwise noted, all testing performed by [address] [phone]: [id number] Director: Mike Pitts M.D. Segmented Neut % 52.8 % Normal [facility] Comment on above: Result Comment: Smea r reviewed to verify automated differential> Performed By: #### C SHIRLEY, BSREV ####Unless otherwise noted, all testing performed by [address] [phone]: [id number] Director: Mike Pitts M.D. WBC Auto #/vol (Bld) 9.5 K/mcL Normal 3.4-10.6 [facility] Comment on above: Performed By: #### C SHIRLEY, BSREV ####Unless otherwise noted, all testing performed by [address] [phone]: [id number] Director: Mike Pitts M.D. CHEST (ONE VIEW ONLY)on CHEST (ONE VIEW ONLY) Final ReportAccession No: [id number] Performed: Nov 17 2017 11:50PMExamination: CHEST (ONE VIEW ONLY)SINGLE AP CHESTCLINICAL HISTORY: Sudden onset shortness of breath and chest pain.COMPARISON: Chest x-ray 03/21/2015.FINDINGS: Single AP upright view is submitted. The cardiomediastinalsilhouette, lungs, pulmonary vasculature, and pleural spaces are normal.Noacute osseous lesion is present.IMPRESSION:No acute cardiopulmonary abnormality.Interpreting Physician: LG GARCIA M.D.Trans: jwheel : cc: Normal [facility] CRP, C-Reactive Proteinon CRP - Inflammation 10.7 mg/L High 0 - 10 mg/L [facility] Protein mass conc 10.7 mg/L High 0.0-10.0 [facility] Comment on above: Performed By: #### C RPQT, CHEM8, CTNI, MG ####Unless otherwise noted, all testing performed by [facility], [place] [phone]: [id number] Director: Mike Pitts M.D. CT CHEST PE PROTOCOLon 11-18 Protein mass conc Final Report Accession No: [id number] Performed: Nov 18 2017 12:52AMExamination: CT CHEST PE PROTOCOLCT CHEST POST CONTRAST, CTA PULMONARY ARTERIESCLINICAL HISTORY: MIDSTERNAL CHEST PAIN WITH BACK PAIN, SOB SUDDEN ONSET,ELEVATED D-DIMER.COMPARISON: Chest x-ray 11/17/2017.TECHNIQUE: Following uneventful administration of 75 mL Isovue 370 IVintravenous contrast, helical imaging of the chest was performed using PEprotocol. Multiplanar reformatted images and MIP sequences arereconstructed.Additional 3D post-processing was performed on a separate workstation.Dose reduction techniques were achieved by using automated exposurecontroland/or adjustment of mA and/or kV according to patient size and/or use ofiterative reconstruction technique.FINDINGS: Contrast bolus is adequate. There is no acute or chronicpulmonaryarterial embolism. Thoracic aorta is intact with normal origins of thegreatvessels. The imaged thyroid is normal. Central airways are patent. Theesophagus is intact however, circumferential distal esophageal wallthickeningis seen extending to the GE junction. No underlying mass is identified.Thereis no mediastinal or hilar adenopathy. There is no pericardial effusion.Lungs and pleural spaces are clear. Minimal air trapping is seen in thelungbases. There is no airway occlusion or bronchial wall thickening. Noeffusion,pneumothorax, or airspace disease is seen. No acute osseous lesions arepresent.Imaging through the upper abdomen is unremarkable.IMPRESSION:1. No acute or chronic pulmonary arterial embolism.2. Mild basilar air trapping. No airway occlusion or bronchial wallthickening.3. Distal circumferential soft tissue wall thickening suggestingesophagitis.No obstruction or obvious underlying lesion.4. No adenopathy.Interpreting Physician: LG GARCIA M.D.Trans: mandael : cc: Normal [facility] Cardiac Troponin-Ion 018 Troponin I.cardiac mass conc No Biomarker evidence of myocardial injury within the past 14 hours. Normal [facility] Comment on above: Performed By: #### C TNI ####Unless otherwise noted, all testing performed by [address] [phone]: [id number] Director: Mike Pitts M.D. Troponin I.cardiac mass conc ng/mL Normal < 45.0 [facility] Comment on above: Result Comment: Elev ation of troponin indicates some degree of myocardial necrosis butunless there is a significant rise and/or fall (if elevated) identified,it unlikely that an acute event has taken placeSamples from patients routinely receiving high dose biotin therapy(100-300 mg/day) may show falsely decreased results. Please correlateclinically. Performed By: #### C TNI ####Unless otherwise noted, all testing performed by [address] [phone]: [id number] Director: Mike Pitts M.D. Troponin I ng/mL Normal < 45.0 [facility] Comment on above: Result Comment: Elev ation of troponin indicates some degree of myocardial necrosis butunless there is a significant rise and/or fall (if elevated) identified,it unlikely that an acute event has taken placeSamples from patients routinely receiving high dose biotin therapy(100-300 mg/day) may show falsely decreased results. Please correlateclinically. Performed By: #### C RPQT, CHEM8, CTNI, MG ####Unless otherwise noted, all testing performed by [address] [phone]: [id number] Director: Mike Pitts M.D. D-Dimeron 11-18-2017 D-Dimer 1.90 mcg/ml (FEU) High < .5 [facility] Comment on above: Result Comment: This test is intended for use in conjunction with a clinical pretestprobability (PTP) assessment model to exclude pulmonary embolism (PE) anddeep vein thrombosis (DVT) in outpatients suspected of PE or DVT. Performed By: #### E DCTNI, DDIMR, PT, CBCWOD, CHEM8, PTT ####Unless otherwise noted, all testing performed by [address] [phone]: [id number] Director: Mike Pitts M.D. D-Dimer, Quantitativeon D-Dimer 1.90 mcg/ml (FEU) High <0.5 [facility] Cardiac Troponin-Ion Troponin I ng/mL Normal < 45 [facility] Comment on above: Result Comment: Elev ation of troponin indicates some degree of myocardial necrosis butunless there is a significant rise and/or fall (if elevated) identified,it unlikely that an acute event has taken placeSamples from patients routinely receiving high dose biotin therapy(100-300 mg/day) may show falsely decreased results. Please correlateclinically. Performed By: #### E DCTNI, DDIMR, PT, CBCWOD, CHEM8, PTT ####Unless otherwise noted, all testing performed by [address] [phone]: [id number] Director: Mike Pitts M.D. Glucose, POCon 11-18-2017 Glucose mass conc 270 mg/dL High 70-105 [facility] Comment on above: Performed By: #### G LUX ####Unless otherwise noted, all testing performed by [address] [phone]: [id number] Director: Mike Pitts M.D. Glucose mass conc 387 mg/dL High 70-105 [facility] Comment on above: Performed By: #### G LUX ####Unless otherwise noted, all testing performed by [address] [phone]: [id number] Director: Mike Pitts M.D. Glucose, POC Stripon 018 Glucose 387 mg/dL High 70 - 105 mg/dL [facility] Magnesium Levelon 11-18-2017 Magnesium 1.8 mg/dL Normal 1.6-2.4 [facility] Comment on above: Performed By: #### C RPQT, CHEM8, CTNI, MG ####Unless otherwise noted, all testing performed by [address] [phone]: [id number] Director: Mike Pitts M.D. PT/INRon 11-18-2017 Coagulation factor induced.INR assay in platelet poor plasma 0.97 {INR} Normal [facility] Comment on above: Result Comment: The [place] [employer] recommended therapeutic rangefor Warfarin (Coumadin) therapy goals:PROPHYLAXIS/TREATMENT of:INRVenous Thrombosis, Pulmonary Embolism2.0-3.0Prevention of VTE (Orthopedic Surgery)2.0-3.0Atrial Fibrillation2.0-3.0Myocardial Infarction2.0-3.0Mechanical Prosthetic Heart Valves (Aortic position)2.0-3.0Mechanical Prosthetic Heart Valves (Mitral Position)2.5-3.5American College of [employer] evidence-based clinical practiceguidelines. CHEST. 2012 (9th ed) Performed By: #### E DCTNI, DDIMR, PT, CBCWOD, CHEM8, PTT ####Unless otherwise noted, all testing performed by [address] [phone]: [id number] Director: Mike Pitts M.D. Coagulation tissue factor induced in platelet poor plasma 12.6 s Normal 11.8-14.3 [facility] Comment on above: Performed By: #### E DCTNI, DDIMR, PT, CBCWOD, CHEM8, PTT ####Unless otherwise noted, all testing performed by [address] [phone]: [id number] Director: Mike Pitts M.D. Sed Rateon 11-18-2017 Sed Rate 31 MM/hr. High 0-20 [facility] Comment on above: Performed By: #### S EDR ####Unless otherwise noted, all testing performed by [address] [phone]: [id number] Director: Mike Pitts M.D. CMP FASTINGon 10-29-2017 A:G RATIO 1.1 RATIO Low 1.3-2.2 [facility] Comment on above: Performed By: #### C MPF, LIP2, TSH2 ####[place] [address] Alanine aminotransferase (ALT) 23 U/L Normal 9-52 [facility] Comment on above: Performed By: #### C MPF, LIP2, TSH2 ####[place] [address] Albumin 3.9 G/dl Normal 3.5-5.0 [facility] Comment on above: Performed By: #### C MPF, LIP2, TSH2 ####[place] [address] Alkaline phosphatase (ALP) 129 U/L High 38-126 [facility] Comment on above: Performed By: #### C MPF, LIP2, TSH2 ####[place] [address] Aspartate aminotransferase (AST) 19 U/L Normal 14-36 [facility] Comment on above: Performed By: #### C MPF, LIP2, TSH2 ####[place] [address] Bilirubin (total) 0.9 mg/dL Normal 0.2-1.3 [facility] Comment on above: Performed By: #### C MPF, LIP2, TSH2 ####[place] [address] BUN (urea nitrogen) 11 mg/dL Normal 7-20 [facility] Comment on above: Performed By: #### C MPF, LIP2, TSH2 ####[place] [address] Calcium 9.2 mg/dL Normal 8.4-10.2 [facility] Comment on above: Performed By: #### C MPF, LIP2, TSH2 ####[place] [address] Chloride 100 mmol/L Normal 98-107 [facility] Comment on above: Performed By: #### C MPF, LIP2, TSH2 ####[place] [address] CO2 31 mmol/L High 22-30 [facility] Comment on above: Performed By: #### C MPF, LIP2, TSH2 ####[place] [address] Creatinine 0.7 mg/dL Normal 0.7-1.2 [facility] Comment on above: Performed By: #### C MPF, LIP2, TSH2 ####[place] [address] eGFR (non-black) Average GFR for 50-5 9 years old = 93. Normal [facility] Comment on above: Result Comment: Elephant Tamer saritha Kidney disease, GFR = <60.Kidney failure, GFR = <15.The GFR estimate is not adjusted for extreme body surface area or acute process, nor has it been validated for women or ethnic groups other than and .Testing performed at [place] [address] Performed By: #### C MPF, LIP2, TSH2 ####[place] [address] eGFR (non-black) mL/min/{1.73_m2} Normal [facility] Comment on above: Performed By: #### C MPF, LIP2, TSH2 ####[place] [address] Glucose mass conc 255 mg/dL High 70-100 [facility] Comment on above: Result Comment: NORM AL <100 mg/dLPREDIABETES 101-126 mg/dLDIABETES 126 mg/dL or higher Performed By: #### C MPF, LIP2, TSH2 ####[place] [address] Potassium molar conc 3.9 mmol/L Normal 3.5-5.1 [facility] Comment on above: Performed By: #### C MPF, LIP2, TSH2 ####[place] [address] Protein 7.4 g/dL Normal 6.3-8.2 [facility] Comment on above: Performed By: #### C MPF, LIP2, TSH2 ####[place] [address] Sodium 139 mmol/L Normal 137-145 [facility] Comment on above: Performed By: #### C MPF, LIP2, TSH2 ####[place] [address] FREE T4on 10-29-2017 Thyroxine (T4) free 1.20 ng/dL Normal 0.78-2.19 [facility] Comment on above: Result Comment: Test ing performed at [place] [address] Performed By: #### T 42 ####[place] [address] LIPID PROFILEon 10-29-2017 Cholesterol 142 mg/dL Normal 107-217 [facility] Comment on above: Performed By: #### C MPF, LIP2, TSH2 ####[place] [address] Cholesterol in VLDL mass conc 47 mg/dL High 5.0-25 [facility] Comment on above: Performed By: #### C MPF, LIP2, TSH2 ####[place] [address] Cholesterol to HDL Ratio 3.64 {ratio} Normal [facility] Comment on above: Result Comment: RISK TOTAL/HDL RATIO MEN WOMEN1/2 AVERAGE 3.43 3.27AVERAGE 4.97 4.442X AVERAGE 9.55 7.053X AVERAGE 23.99 11.04Testing performed at [place] [address] Performed By: #### C MPF, LIP2, TSH2 ####[place] [address] HDL Cholesterol 39 mg/dL Normal 33-75 [facility] Comment on above: Performed By: #### C MPF, LIP2, TSH2 ####[place] [address] LDL Cholesterol 56 MG/DL Normal [facility] Comment on above: Performed By: #### C MPF, LIP2, TSH2 ####[place] [address] Triglyceride 237 mg/dL High 0-150 [facility] Comment on above: Performed By: #### C MPF, LIP2, TSH2 ####[place] [address] MALB/CREAT RATIO,URINEon MALB/CREAT RATIO,URINE 7.8 mg MALB/g CREAT Normal 1.3-30.0 [facility] Comment on above: Result Comment: Test ing performed at [place] [address] Performed By: #### M CRAT ####[place] [address] MICROALBUMIN,RANDO M URINE 21.9 mg/L High 0-16.7 [facility] Comment on above: Performed By: #### M CRAT ####[place] [address] URINE CREATININE RANDOM 281.5 MG/DL Normal [facility] Comment on above: Result Comment: NO N ORMAL VALUES ESTABLISHED FOR RANDOM SPECIMENS Performed By: #### M CRAT ####[place] [address] TSHon 10-29-2017 Thyroid stimulating hormone (TSH) 1.660 uIU/ML Normal 0.46-4.68 [facility] Comment on above: Result Comment: Test ing performed at [place] [address] Performed By: #### C MPF, LIP2, TSH2 ####[place] [address] Glucose, POCon 10-20-2017 Glucose mass conc 322 mg/dL High [address] [facility] Comment on above: Performed By: #### G LUX ####Unless otherwise noted, all testing performed by [address] [phone]: [id number] Director: Mike Pitts M.D. Glucose mass conc 363 mg/dL High [address] [facility] Comment on above: Performed By: #### G LUX ####Unless otherwise noted, all testing performed by [address] [phone]: [id number] Director: Mike Pitts M.D. Glucose mass conc 267 mg/dL High [address] [facility] Comment on above: Performed By: #### G LUX ####Unless otherwise noted, all testing performed by [address] [phone]: [id number] Director: Mike Pitts M.D. Hgb and Hcton 10-20-2017 Hematocrit Auto Volume Fraction (Bld) 32.8 % Low 34.4-44.8 [facility] Comment on above: Performed By: #### H H ####Unless otherwise noted, all testing performed by [address] [phone]: [id number] Director: Mike Pitts M.D. Hemoglobin mass conc (Bld) 11.1 g/dL Low 11.6-15.4 [facility] Comment on above: Performed By: #### H H ####Unless otherwise noted, all testing performed by [address] [phone]: [id number] Director: Mike Pitts M.D. Glucose, POCon 10-19-2017 Glucose mass conc 281 mg/dL High 70-105 [facility] Comment on above: Performed By: #### G LUX ####Unless otherwise noted, all testing performed by [address] [phone]: [id number] Director: Mike Pitts M.D. Glucose mass conc 338 mg/dL High 70-105 [facility] Comment on above: Performed By: #### G LUX ####Unless otherwise noted, all testing performed by [address] [phone]: [id number] Director: Mike Pitts M.D. Glucose mass conc 246 mg/dL High 70-105 [facility] Comment on above: Performed By: #### G LUX ####Unless otherwise noted, all testing performed by [address] [phone]: [id number] Director: Mike Pitts M.D. Glucose mass conc 271 mg/dL High 70-105 [facility] Comment on above: Performed By: #### G LUX ####Unless otherwise noted, all testing performed by [address] [phone]: [id number] Director: Mike Pitts M.D. SPINE LUMBAR 2 OR 3 VIEWSon 10-19-2017 SPINE LUMBAR 2 OR 3 VIEWS Final ReportAccession No: [id number] Performed: Oct 19 2017 9:31AMExamination: SPINE LUMBAR 2 OR 3 VIEWSINTRAOPERATIVE LUMBAR SPINE 10/19/2017COMPARISON: Lumbar spine MR dated 10/06/2017.ADDITIONAL HISTORY: L4-L5 laminectomy.TECHNIQUE: Intraoperative fluoroscopy was used to evaluate the lumbarspine.Total fluoroscopic time was 19 seconds with a dose of 18.24 mGy. 2 imageswereacquired.FINDINGS: Intraoperative image shows a surgical instrument overlying theL4-L5disc space.IMPRESSION:Intraoperativ e lumbar spine localization images at the L4-L5 level.Interpreting Physician: AUGUSTO GOMEZ M.D.Trans: mmyers : cc: Normal [facility] Basic Metabolic Panelon -0 Calcium 9.1 mg/dL Normal 8.4-10.2 [facility] Comment on above: Performed By: #### C HEM8, CBCDIF ####Unless otherwise noted, all testing performed by [address] [phone]: [id number] Director: Mike Pitts M.D. Chloride 98 mmol/L Normal 98-108 [facility] Comment on above: Performed By: #### C HEM8, CBCDIF ####Unless otherwise noted, all testing performed by [place] [phone]: [id number] Director: Mike Pitts M.D. CO2 25 mmol/L Normal 21-32 [facility] Comment on above: Performed By: #### C HEM8, CBCDIF ####Unless otherwise noted, all testing performed by [address]CLIA: [id number] Director: Mike Pitts M.D. Creatinine 1.29 mg/dL High 0.40-1.10 [facility] Comment on above: Performed By: #### C HEM8, CBCDIF ####Unless otherwise noted, all testing performed by [place] [phone]: [id number] Director: Mike Pitts M.D. eGFR (black) 52 mL/min/{1.73_m2} Low >60 [facility] Comment on above: Result Comment: Afri can [place] GFR Calc Performed By: #### C HEM8, CBCDIF ####Unless otherwise noted, all testing performed by [place] [phone]: [id number] Director: Mike Pitts M.D. eGFR (non-black) 43 mL/min/{1.73_m2} Low >60 [facility] Comment on above: Result Comment: Non- GFR CalceGFR is an estimated Glomerular Filtration Rate based on the valueof the patient's serum creatinine. In outpatients, eGFR should be usedas a helpful tool in screening for CKD. In inpatients or patients withacute renal failure, eGFR represents the GFR at the moment of the drawand should be used with caution. Performed By: #### C HEM8, CBCDIF ####Unless otherwise noted, all testing performed by [address] [phone]: [id number] Director: Mike Pitts M.D. Glucose 412 mg/dL Critically high 70 - 99 mg/dL [facility] Glucose mass conc 412 mg/dL Critically high 70-99 [facility] [place] Comment on above: Result Comment: [id number] CALLED CRITICAL RESULTS ON 10/15/2017 @ 1154 TO AND READ BACK BYKEESHA CHILDS in PSTThis test result might be falsely depressed or falsely elevated onsamples drawn from patients taking Sulfasalazine and Sulfapyridine.Venipuncture should occur prior to taking either of these drugs. Performed By: #### C HEM8, CBCDIF ####Unless otherwise noted, all testing performed by [address] [phone]: [id number] Director: Mike Pitts M.D. Potassium 4.8 mmol/L Normal 3.5-5.1 [facility] Comment on above: Performed By: #### C HEM8, CBCDIF ####Unless otherwise noted, all testing performed by [address] [phone]: [id number] Director: Mike Pitts M.D. Sodium 133 mmol/L Low 135-145 [facility] Comment on above: Performed By: #### C HEM8, CBCDIF ####Unless otherwise noted, all testing performed by [address] [phone]: [id number] Director: Mike Pitts M.D. Urea nitrogen 22 mg/dL Normal 8-25 [facility] Comment on above: Performed By: #### C HEM8, CBCDIF ####Unless otherwise noted, all testing performed by [address] [phone]: [id number] Director: Mike Pitts M.D. CBC and Differentialon 10-15 Basophils 0.6 % Invalid Interpretation Code [facility] Basophils 0.1 K/mcL Invalid Interpretation Code 0 - 0.2 [facility] Eosinophils 0.2 K/mcL Invalid Interpretation Code 0 - 0.5 [facility] Erythrocytes (RBC) 4.96 M/mcL Invalid Interpretation Code 3.7 - 5.0 [facility] Hematocrit (HCT) 42.4 % Normal 34.4-44.8 [facility] Comment on above: Performed By: #### C HEM8, CBCDIF ####Unless otherwise noted, all testing performed by [address] [phone]: [id number] Director: Mike Pitts M.D. Hemoglobin (HGB) 13.8 g/dL Normal 11.6-15.4 [facility] Comment on above: Performed By: #### C HEM8, CBCDIF ####Unless otherwise noted, all testing performed by [address] [phone]: [id number] Director: Mike Pitts M.D. Interpretation and review of laboratory results Abnormal Invalid Interpretation Code [facility] Lymphocytes 2.5 K/mcL Invalid Interpretation Code 1.0 - 3.7 [facility] MCH 27.8 pg Low 27.9-33.9 [facility] Comment on above: Performed By: #### C HEM8, CBCDIF ####Unless otherwise noted, all testing performed by [address] [phone]: [id number] Director: Mike Pitts M.D. MCHC 32.6 g/dL Low 33.1-35.1 [facility] Comment on above: Performed By: #### C HEM8, CBCDIF ####Unless otherwise noted, all testing performed by [address] [phone]: [id number] Director: Mike Pitts M.D. MCV 85.5 fL Normal 82.6-98.9 [facility] Comment on above: Performed By: #### C HEM8, CBCDIF ####Unless otherwise noted, all testing performed by [address] [phone]: [id number] Director: Mike Pitts M.D. Monocytes 1.0 K/mcL High 0.1 - 0.6 [facility] Neutrophils 9.1 K/mcL High 1.2 - 6.9 [facility] Platelet mean volume (PMV) 8.6 fL Normal 7.0-10.6 [facility] Comment on above: Performed By: #### C HEM8, CBCDIF ####Unless otherwise noted, all testing performed by [address] [phone]: [id number] Director: Mike Pitts M.D. Platelets 365 K/mcL Invalid Interpretation Code 162 - 402 [facility] RDW-CA 13.5 % Normal 10.0-14.4 [facility] Comment on above: Performed By: #### C HEM8, CBCDIF ####Unless otherwise noted, all testing performed by [address] [phone]: [id number] Director: Mike Pitts M.D. Segmented Neut 70.4 % Invalid Interpretation Code [facility] T8 suppressor/100 cells 1.9 10*3/uL Invalid Interpretation Code [facility] T8 suppressor/100 cells 19.7 10*3/uL Invalid Interpretation Code [facility] T8 suppressor/100 cells 7.4 10*3/uL Invalid Interpretation Code [facility] WBC (Leukocytes) 12.9 K/mcL High 3.4 - 10.6 [facility] CBC with Diffon 10-15-2017 Basophils Auto #/vol (Bld) 0.1 K/mcL Normal 0-0.2 [facility] Comment on above: Performed By: #### C HEM8, CBCDIF ####Unless otherwise noted, all testing performed by [address] [phone]: [id number] Director: Mike Pitts M.D. Basophils/100 WBC Auto (Bld) 0.6 % Normal [facility] Comment on above: Performed By: #### C HEM8, CBCDIF ####Unless otherwise noted, all testing performed by [address] [phone]: [id number] Director: Mike Pitts M.D. Eosinophils Auto #/vol (Bld) 0.2 K/mcL Normal 0-0.5 [facility] Comment on above: Performed By: #### C HEM8, CBCDIF ####Unless otherwise noted, all testing performed by [address], [place] [phone]: [id number] Director: Mike Pitts M.D. Eosinophils/100 WBC Auto (Bld) 1.9 % Normal [facility] Comment on above: Performed By: #### C HEM8, CBCDIF ####Unless otherwise noted, all testing performed by [address] [phone]: [id number] Director: Mike Pitts M.D. Lymphocytes Auto #/vol (Bld) 2.5 K/mcL Normal 1.0-3.7 [facility] Comment on above: Performed By: #### C HEM8, CBCDIF ####Unless otherwise noted, all testing performed by [address] [phone]: [id number] Director: Mike Pitts M.D. Lymphocytes/100 WBC Auto (Bld) 19.7 % Normal [facility] Comment on above: Performed By: #### C HEM8, CBCDIF ####Unless otherwise noted, all testing performed by [address] [phone]: [id number] Director: Mike Pitts M.D. Monocytes Auto #/vol (Bld) 1.0 K/mcL High 0.1-0.6 [facility] Comment on above: Performed By: #### C HEM8, CBCDIF ####Unless otherwise noted, all testing performed by [address] [phone]: [id number] Director: Mike Hong, M.D. Monocytes/100 WBC Auto (Bld) 7.4 % Normal [facility] Comment on above: Performed By: #### C HEM8, CBCDIF ####Unless otherwise noted, all testing performed by [address] [phone]: [id number] Director: Mike Pitts M.D. Neutrophils Auto #/vol (Bld) 9.1 K/mcL High 1.2-6.9 [facility] Comment on above: Performed By: #### C HEM8, CBCDIF ####Unless otherwise noted, all testing performed by [place] [phone]: [id number] Director: Mike Pitts M.D. Platelets Auto #/vol (Bld) 365 K/mcL Normal 162-402 [facility] Comment on above: Performed By: #### C HEM8, CBCDIF ####Unless otherwise noted, all testing performed by [place] [phone]: [id number] Director: Mike Pitts M.D. RBC Auto #/vol (Bld) 4.96 M/mcL Normal 3.7-5.0 [facility] Comment on above: Performed By: #### C HEM8, CBCDIF ####Unless otherwise noted, all testing performed by [phone]: [id number] Director: Mike Pitts M.D. Segmented Neut % 70.4 % Normal [facility] Comment on above: Performed By: #### C HEM8, CBCDIF ####Unless otherwise noted, all testing performed by [place] [address] [address], [place] [phone]: [id number] Director: Mike Pitts M.D. WBC Auto #/vol (Bld) 12.9 K/mcL High 3.4-10.6 [facility] Comment on above: Performed By: #### C HEM8, CBCDIF ####Unless otherwise noted, all testing performed by [address], [place] [phone]: [id number] Director: Mike Pitts M.D. BREAST BIOP, STEREO, CLIP, M ASSon 10-12-2017 BREAST BIOP, STEREO, CLIP, MASS A D D E N D U M Final Report Begin Addendum #1 Pathology report:Pathology report from stereotactic biopsy of the left breast performed on10/12/2017.1. Breast tissue with peripheral to fibrocystic changes and associatedmicrocalcifications. 2. Focal pseudoangiomatous stromal hyperplasia.Pathology report is concordantOriginal ReportSTEREOTACTIC GUIDED CORE NEEDLE BIOPSY OF LEFT BREAST CALCIFICATIONSCLINICAL HISTORY: Left breast calcifications.Prior to the procedure, an audible timeout was done to verify patientidentification, site and type of procedure. The left breast was markedpriorto the procedure. 2 architectural technologist's were present.The procedure was explained to the patient including the risks, benefits,andalternatives. Medications were discussed, including any prior use ofbloodthinning medications by the patient. Patient allergies were reviewed.Therisks, including but not limited to infection and bleeding, were reviewedbythe performing physician and the patient agreed to undergo the procedure.A production illustrator view of the left breast localized the calcifications of concernin theupper outer quadrant at posterior depth. A lateral approach was used. Thebreast was prepped and draped in a sterile manner. 1% lidocaine wasinjectedsubcutaneously and then into the deeper tissues. A small incision wasmade. 7passes with a 8 gauge vacuum assisted biopsy needle were then performedwithminimal bleeding. The specimen radiograph demonstrated at least 2 faintgroupsof calcifications in the tissues. A tissue marker was then placed into thebiopsy site. Hemostasis was achieved with manual compression. The patienttolerated the procedure without difficulty.Pathology specimens were labeled with patient identifiers in front of thepatient while the patient was in the procedure room, and then sent to thePathology Department.The postbiopsy mammogram demonstrates satisfactory placement of the clipin theupper outer quadrant at posterior depth.The patient experienced no complications during the procedure.Home-going/follow-up instructions were reviewed with the patient beforesheleft the department.IMPRESSION:Status post stereotactic guided core needle biopsy of left breastcalcifications followed by clip placement. Pathology is pending.TECHNOLOGIST: Cierra Drakec: [facility] SURGon 10-12-2017 SURG Name: JUANA HANDY Breast stereotaxic biopsy, Left Clinical History Left breast calcifications Diagnosis 1. Breast tissue with proliferative fibrocystic changes and associated microcalcifications. 2. Focal pseudoangiomatous stromal hyperplasia. HW Gross Description Received in formalin are multiple vvckg-ncbqqc-zmi cores measuring in aggregate 3.2 x 3.1 x 0.6 cm. ET 3 blocks. Date/Time of fresh tissue collected: 10/12/2017 @ 11:19 a.m. Date/Time tissue placed in formalin: 10/12/2017 @ 11:20 a.m. Date/Time removed from formalin: 10/12/2017 @ 9:50 p.m. CS;lat (SYDNEE/lt) Electronically Signed By Yoshi Gross MD , Pathologist (Case signed 10/13/2017) [facility] MAMMOGRAM UNILAT DIAG, DIGIT Myla 10-07-2017 MAMMOGRAM UNILAT DIAG, DIGITAL Final ReportAccession No. [id number] Performed: Oct 07 2017 1:40PMExamination: LEFT MAMMOGRAM UNILAT DIAG, DIGITALExam: Digital diagnostic mammogram of the left breast.INDICATION: Follow-up suspicious microcatheter calcifications in the leftbreast.Comparison was made with previous mammogram from 03/19/2017.Study was reviewed with the aid of CAD.FINDINGS:Breast Density Category C - The breasts are heterogeneously dense, whichmayobscure small masses.CC, MLO, mediolateral and spot compression CC and MLO views of the leftbreastwere obtained. There is large area of microcalcifications identifiedwithin theupper outer quadrant similar to previous exam with most suspicious groupofheterogeneous medical calcifications measuring approximately 9 mm insize. Nosignificant dural changes are seen when compared to previous exam.IMPRESSION:Suspicious medical calcifications within the left breast. These areamenablefor stereotactic guided biopsy.Category 4b: Suspicious- Findings of intermediate suspicion ofmalignancy.BIOPSY RECOMMENDEDPlease note that mammography does not detect 100% of malignancies.Consequently, correlation with physical examination is extremelyimportant forcomplete evaluation of breast tissue. A lack of mammographic findingsshouldnot preclude further evaluation of any palpable abnormality.TECHNOLOGIST: Jana ZuñigaInterpreting Radiologist: CLAUDIA RODRIGUEZ M.D.Trans: n/a : cc: Normal [facility] MRI LUMBAR SPINE W/O CONTon 10-06-2017 MRI LUMBAR SPINE W/O CONT Final ReportAccession No: [id number] Performed: Oct 06 2017 3:29PMExamination: MRI LUMBAR SPINE W/O CONTEXAMINATION: MRI of the lumbar spine.CLINICAL INFORMATION: Back pain.TECH NOTES: low back pain radiating downrightleg to ankle x 2 weeks, hx of ddd, no known injury, Chronic Low back painsiatica .COMPARISON STUDY: Lumbar radiographs from 09/05/2017.TECHNIQUE: Sagittal and axial T1 and T2-weighted sequences and sagittalgradient images were obtained through the lumbar spine.FINDINGS:Alignment: Gross alignment of the lumbar spine is normal in the sagittalplane.Bone marrow signal: Signal from vertebral bodies and posterior elements iswithin normal limits.Conus: The conus medullaris terminates normally at the L1 level.Paraspinal soft tissues: Normal.Lower thoracic spine: No cord impingement.L1-L2: No evidence for posterior disc bulging. No spinal canal or lateralrecess stenosis. Subcentimeter intermediate T1 and bright T2 structureinvolving the right aspect of L2 vertebra suggestive of atypicalhemangioma,however, incompletely characterized in this exam.L2-L3: Disc space narrowing and disc desiccation. There is 4 mm posteriordiscbulging. No significant spinal canal or lateral recess stenosis.L3-L4: There is a 4 mm broad-based posterior disc bulging. No significantspinal canal or lateral recess stenosis. Mild facet joint shows andhypertrophybilaterally.L4-L 5: There is disc desiccation. There is broad-based posterior discbulging,asymmetrical to the right measuring up to 8 mm. This in combination withfacetjoint sclerosis and hypertrophy and ligamentum flavum hypertrophy causesmoderate stenosis of the spinal canal and mild to moderate stenosis ofbilateral neural foramina. There is impingement upon the exiting nerverootsuspected bilaterally, right greater than left.L5-S1: There is 2 mm broad-based posterior disc bulging but no significantspinal canal or lateral recess stenosis bilaterally. Facet jointsclerosis andhypertrophy bilaterally.IMPRESSION:1. There is a broad-based posterior disc bulging at L4-L5 level measuringup to8 mm, asymmetrical to the right which in combination with facet jointsclerosisand hypertrophy and ligamentum flavum hypertrophy causes moderatestenosis ofthe spinal canal and mild to moderate stenosis of bilateral neuralforamina,right greater than left. There is impingement upon the exiting nerve rootssuspected bilaterally, worse on the right.2. Subcentimeter lesion involving L2 vertebra probably in atypicalhemangioma.Attention in subsequent follow-up studies recommended. If there isclinicalconcern for metastatic bone disease, follow-up with bone scan can beperformedas clinically warranted.3. Additional findings as detailed above.Interpreting Physician: CLAUDIA RODRIGUEZ M.D.Trans: n/a : cc: Normal [facility] D DIMERon 09-29-2017 D DIMER 0.30 mg/L FEU Normal <0.56 [facility] Comment on above: Result Comment: If r esult is greater than the cutoff value of 0.5 mg/L then the potential for PE or DVT exists. Other conditions exist which may cause a falsely elevated level. Please correlate clinically, including radiological findings and other clinical parameters.Testing performed at [place], [place] [address] Performed By: #### D DIMER ####[place] [address] ED NOTEon 09-29-2017 [facility] NOTES Normal [facility] BUN and Creatinineon 017 Creatinine mass conc 0.84 mg/dL 0.4 - 1.1 mg/dL [facility] GFR/1.73 sq M predicted among blacks MDRD vol rate/area (S/P/Bld) mL/min/{1.73_m2} ml/min/1.7 3sq.m [facility] Comment on above: GFR Calc GFR/1.73 sq M predicted among non-blacks MDRD vol rate/area (S/P/Bld) mL/min/{1.73_m2} ml/min/1.7 3sq.m [facility] Comment on above: Non- GFR Calc eGFR is an estimated Glomerular Filtration Rate based on the value of the patient's serum creatinine. In outpatients, eGFR should be used as a helpful tool in screening for CKD. In inpatients or patients with acute renal failure, eGFR represents the GFR at the moment of the draw and should be used with caution. Urea nitrogen mass conc 13 mg/dL 8 - 25 mg/dL [facility] Foot DXon 04-12-2017 Foot DX LefttraumaPatient Na me: Juana HandyPatient : [id number]: [id number] Date: [id number] #: [id number] Class: EPhysician: Chanda Turner Physician: , Study Desc.: Foot DXLeftLEFT FOOT 3 VIEWSCLINICAL HISTORY: Foot was stepped on 2 days ago and has pain on the top of the foot.TECHNIQUE: AP, lateral, and oblique views.FINDINGS: There is no evidence of acute fracture or dislocation. Hallux valgus deformity is noted. Calcaneal spurs are evident. Soft tissues are normal.IMPRESSION: No acute injury.Dictated: Linh Guzman 04/12/2017 09:02Transcribed: Yamila Deras 04/12/2017 09:06Electronically Signed: Linh Guzman 04/12/2017 09:50[facility] [place] [address] [email or web address] [id number] [email or web address] Vital Signs Date Time Vital Sign Value Performing Clinician Facility 04-03-2025 15:04-0400 Body mass index (BMI) [Ratio] 37.32 kg/m2 Irma Valera MD Work Phone: [facility] [place] [facility] 04-03-2025 15:04-0400 Body temperature 98.49 [degF] Irma Valera MD Work Phone: [facility] [place] [facility] 04-03-2025 15:04-0400 Body weight 98.61 kg Irma Valera MD Work Phone: [facility] [place] [facility] 04-03-2025 15:04-0400 Heart rate 78 /min Irma Valera MD Work Phone: [facility] [place] [facility] 04-03-2025 15:04-0400 Respiratory rate 14 /min Irma Valera MD Work Phone: [facility] [place] [facility] 04-03-2025 15:04-0400 SaO2% (BldA) [Mass fraction] 97 % Irma Valera MD Work Phone: [facility] [place] [facility] 02-28-2025 13:49-0400 Body height 162.6 cm Arianna Queden LOCOMOTIVE ENGINEER.CORPORATE CONSULTANT Work Phone: [facility] [place] [facility] 02-28-2025 13:49-0400 Body mass index (BMI) [Ratio] 37.76 kg/m2 Arianna Queden LOCOMOTIVE ENGINEER.CORPORATE CONSULTANT Work Phone: [facility] [place] [facility] 02-28-2025 13:49-0400 Body temperature 98.01 [degF] Arianna Queden LOCOMOTIVE ENGINEER.CORPORATE CONSULTANT Work Phone: [facility] [place] [facility] 02-28-2025 13:49-0400 Body weight 99.79 kg Arianna Queden LOCOMOTIVE ENGINEER.CORPORATE CONSULTANT Work Phone: [facility] [place] [facility] 02-28-2025 13:49-0400 Diastolic blood pressure 72 mm[Hg] Arianna Queden LOCOMOTIVE ENGINEER.CORPORATE CONSULTANT Work Phone: [facility] [place] [facility] 02-28-2025 13:49-0400 Heart rate 80 /min Arianna Queden LOCOMOTIVE ENGINEER.CORPORATE CONSULTANT Work Phone: [facility] [place] [facility] 02-28-2025 13:49-0400 Respiratory rate 18 /min Arianna Queden LOCOMOTIVE ENGINEER.CORPORATE CONSULTANT Work Phone: [facility] [place] [facility] 02-28-2025 13:49-0400 SaO2% (BldA) [Mass fraction] 98 % Arianna Queden LOCOMOTIVE ENGINEER.CORPORATE CONSULTANT Work Phone: [facility] [place] [facility] 02-28-2025 13:49-0400 Systolic blood pressure 128 mm[Hg] Arianna Queden LOCOMOTIVE ENGINEER.[facility] Work Phone: [facility] [place] [facility] 08-30-2024 14:05-0500 Body height 162.6 cm Arianna Queden LOCOMOTIVE ENGINEER.[facility] Work Phone: [facility] [place] [facility] 08-30-2024 14:05-0500 Body mass index (BMI) [Ratio] 38.45 kg/m2 Arianna Queden LOCOMOTIVE ENGINEER.CORPORATE CONSULTANT Work Phone: [facility] [place] [facility] 08-30-2024 14:05-0500 Body temperature 97.3 [degF] Arianna Queden LOCOMOTIVE ENGINEER.CORPORATE CONSULTANT Work Phone: [facility] [place] [facility] 08-30-2024 14:05-0500 Body weight 101.61 kg Arianna Queden LOCOMOTIVE ENGINEER.CORPORATE CONSULTANT Work Phone: [facility] [place] [facility] 08-30-2024 14:05-0500 Diastolic blood pressure 72 mm[Hg] Arianna Queden LOCOMOTIVE ENGINEER.CORPORATE CONSULTANT Work Phone: [facility] [place] [facility] 08-30-2024 14:05-0500 Heart rate 96 /min Arianna Queden LOCOMOTIVE ENGINEER.CORPORATE CONSULTANT Work Phone: [facility] [place] [facility] 08-30-2024 14:05-0500 Respiratory rate 16 /min Arianna Queden LOCOMOTIVE ENGINEER.CORPORATE CONSULTANT Work Phone: [facility] [place] [facility] 08-30-2024 14:05-0500 SaO2% (BldA) [Mass fraction] 100 % Arianna Queden LOCOMOTIVE ENGINEER.CORPORATE CONSULTANT Work Phone: [facility] [place] [facility] 08-30-2024 14:05-0500 Systolic blood pressure 122 mm[Hg] Arianna Queden LOCOMOTIVE ENGINEER.CORPORATE CONSULTANT Work Phone: [facility] [place] [facility] 01-05-2024 13:41-0400 Body height 162.6 cm Arianna Queden LOCOMOTIVE ENGINEER.CORPORATE CONSULTANT Work Phone: [facility] [place] [facility] 01-05-2024 13:41-0400 Body mass index (BMI) [Ratio] 37.93 kg/m2 Arianna Queden LOCOMOTIVE ENGINEER.[facility] Work Phone: [facility] [place] [facility] 01-05-2024 13:41-0400 Body temperature 97.7 [degF] Arianna Queden LOCOMOTIVE ENGINEER.[facility] Work Phone: [facility] [place] [facility] 01-05-2024 13:41-0400 Body weight 100.25 kg Arianna Queden LOCOMOTIVE ENGINEER.CORPORATE CONSULTANT Work Phone: [facility] [place] [facility] 01-05-2024 13:41-0400 Diastolic blood pressure 72 mm[Hg] Arianna Queden LOCOMOTIVE ENGINEER.[facility] Work Phone: [facility] [place] [facility] 01-05-2024 13:41-0400 Heart rate 75 /min Arianna Queden LOCOMOTIVE ENGINEER.CORPORATE CONSULTANT Work Phone: [facility] [place] [facility] 01-05-2024 13:41-0400 Respiratory rate 16 /min Arianna Queden LOCOMOTIVE ENGINEER.CORPORATE CONSULTANT Work Phone: [facility] [place] [facility] 01-05-2024 13:41-0400 SaO2% (BldA) [Mass fraction] 98 % Arianna Queden LOCOMOTIVE ENGINEER.CORPORATE CONSULTANT Work Phone: [facility] [place] [facility] 01-05-2024 13:41-0400 Systolic blood pressure 124 mm[Hg] Arianna Queden LOCOMOTIVE ENGINEER.CORPORATE CONSULTANT Work Phone: [facility] [place] [facility] 06-29-2023 13:55-0400 Body height 162.6 cm Arianna Queden LOCOMOTIVE ENGINEER.CORPORATE CONSULTANT Work Phone: [facility] [place] [facility] 06-29-2023 13:55-0400 Body temperature 97.59 [degF] Arianna Queden LOCOMOTIVE ENGINEER.CORPORATE CONSULTANT Work Phone: [facility] [place] [facility] 06-29-2023 13:55-0400 Body weight 97.52 kg Arianna Queden LOCOMOTIVE ENGINEER.CORPORATE CONSULTANT Work Phone: [facility] [place] [facility] 06-29-2023 13:55-0400 Diastolic blood pressure 76 mm[Hg] Arianna Queden LOCOMOTIVE ENGINEER.CORPORATE CONSULTANT Work Phone: [facility] [place] [facility] 06-29-2023 13:55-0400 Heart rate 56 /min Arianna Queden LOCOMOTIVE ENGINEER.CORPORATE CONSULTANT Work Phone: [facility] [place] [facility] 06-29-2023 13:55-0400 Respiratory rate 18 /min Arianna Queden LOCOMOTIVE ENGINEER.CORPORATE CONSULTANT Work Phone: [facility] [place] [facility] 06-29-2023 13:55-0400 SaO2% (BldA) [Mass fraction] 98 % Arianna Queden LOCOMOTIVE ENGINEER.CORPORATE CONSULTANT Work Phone: [facility] [place] [facility] 06-29-2023 13:55-0400 Systolic blood pressure 124 mm[Hg] Arianna Queden LOCOMOTIVE ENGINEER.CORPORATE CONSULTANT Work Phone: [facility] [place] [facility] 03-23-2023 14:06-0400 Body height 162.6 cm Arianna Queden LOCOMOTIVE ENGINEER.CORPORATE CONSULTANT Work Phone: [facility] [place] [facility] 03-23-2023 14:06-0400 Body temperature 97.81 [degF] Arianna Queden LOCOMOTIVE ENGINEER.CORPORATE CONSULTANT Work Phone: [facility] [place] [facility] 03-23-2023 14:06-0400 Body weight 94.8 kg Arianna Queden LOCOMOTIVE ENGINEER.CORPORATE CONSULTANT Work Phone: [facility] [place] [facility] 03-23-2023 14:06-0400 Diastolic blood pressure 66 mm[Hg] Arianna Queden LOCOMOTIVE ENGINEER.CORPORATE CONSULTANT Work Phone: [facility] [place] [facility] 03-23-2023 14:06-0400 Heart rate 82 /min Arianna Queden LOCOMOTIVE ENGINEER.CORPORATE CONSULTANT Work Phone: [facility] [place] [facility] 03-23-2023 14:06-0400 Respiratory rate 18 /min Arianna Queden LOCOMOTIVE ENGINEER.CORPORATE CONSULTANT Work Phone: [facility] [place] [facility] 03-23-2023 14:06-0400 SaO2% (BldA) [Mass fraction] 97 % Arianna Queden LOCOMOTIVE ENGINEER.CORPORATE CONSULTANT Work Phone: [facility] [place] [facility] 03-23-2023 14:06-0400 Systolic blood pressure 114 mm[Hg] Arianna Queden LOCOMOTIVE ENGINEER.CORPORATE CONSULTANT Work Phone: [facility] [place] [facility] 12-22-2022 17:00-0400 Body height 162.6 cm Arianna Queden LOCOMOTIVE ENGINEER.CORPORATE CONSULTANT Work Phone: [facility] [place] [facility] 12-22-2022 17:00-0400 Body temperature 98.29 [degF] Arianna Queden LOCOMOTIVE ENGINEER.CORPORATE CONSULTANT Work Phone: [facility] [place] [facility] 12-22-2022 17:00-0400 Body weight 100.25 kg Arianna Queden LOCOMOTIVE ENGINEER.CORPORATE CONSULTANT Work Phone: [facility] [place] [facility] 12-22-2022 17:00-0400 Diastolic blood pressure 70 mm[Hg] Arianna Queden LOCOMOTIVE ENGINEER.CORPORATE CONSULTANT Work Phone: [facility] [place] [facility] 12-22-2022 17:00-0400 Heart rate 73 /min Arianna Queden LOCOMOTIVE ENGINEER.CORPORATE CONSULTANT Work Phone: [facility] [place] [facility] 12-22-2022 17:00-0400 Respiratory rate 16 /min Arianna Queden LOCOMOTIVE ENGINEER.CORPORATE CONSULTANT Work Phone: [facility] [place] [facility] 12-22-2022 17:00-0400 SaO2% (BldA) [Mass fraction] 98 % Arianna Queden LOCOMOTIVE ENGINEER.CORPORATE CONSULTANT Work Phone: [facility] [place] [facility] 12-22-2022 17:00-0400 Systolic blood pressure 122 mm[Hg] Arianna Queden LOCOMOTIVE ENGINEER.CORPORATE CONSULTANT Work Phone: [facility] [place] [facility] 09-29-2022 14:08-0500 Body height 162.6 cm Arianna Queden LOCOMOTIVE ENGINEER.CORPORATE CONSULTANT Work Phone: [facility] [place] [facility] 09-29-2022 14:08-0500 Body temperature 97.81 [degF] Arianna Queden LOCOMOTIVE ENGINEER.CORPORATE CONSULTANT Work Phone: [facility] [place] [facility] 09-29-2022 14:08-0500 Body weight 98.43 kg Arianna Queden LOCOMOTIVE ENGINEER.CORPORATE CONSULTANT Work Phone: [facility] [place] [facility] 09-29-2022 14:08-0500 Diastolic blood pressure 70 mm[Hg] Arianna Queden LOCOMOTIVE ENGINEER.CORPORATE CONSULTANT Work Phone: [facility] [place] [facility] 09-29-2022 14:08-0500 Heart rate 80 /min Arianna Queden LOCOMOTIVE ENGINEER.CORPORATE CONSULTANT Work Phone: [facility] [place] [facility] 09-29-2022 14:08-0500 SaO2% (BldA) [Mass fraction] 99 % Arianna Queden LOCOMOTIVE ENGINEER.CORPORATE CONSULTANT Work Phone: [facility] [place] [facility] 09-29-2022 14:08-0500 Systolic blood pressure 126 mm[Hg] Arianna Queden LOCOMOTIVE ENGINEER.CORPORATE CONSULTANT Work Phone: [facility] [place] [facility] 04-21-2022 13:05-0400 Body height 162.6 cm Arianna Queden LOCOMOTIVE ENGINEER.CORPORATE CONSULTANT Work Phone: [facility] [place] [facility] 04-21-2022 13:05-0400 Body temperature 98.1 [degF] Arianna Queden LOCOMOTIVE ENGINEER.CORPORATE CONSULTANT Work Phone: [facility] [place] [facility] 04-21-2022 13:05-0400 Body weight 100.43 kg Arianna Queden LOCOMOTIVE ENGINEER.CORPORATE CONSULTANT Work Phone: [facility] [place] [facility] 04-21-2022 13:05-0400 Diastolic blood pressure 72 mm[Hg] Arianna Queden LOCOMOTIVE ENGINEER.CORPORATE CONSULTANT Work Phone: [facility] [place] [facility] 04-21-2022 13:05-0400 Heart rate 74 /min Arianna Queden LOCOMOTIVE ENGINEER.CORPORATE CONSULTANT Work Phone: [facility] [place] [facility] 04-21-2022 13:05-0400 Respiratory rate 16 /min Arianna Queden LOCOMOTIVE ENGINEER.CORPORATE CONSULTANT Work Phone: [facility] [place] [facility] 04-21-2022 13:05-0400 SaO2% (BldA) [Mass fraction] 97 % Arianna Queden LOCOMOTIVE ENGINEER.CORPORATE CONSULTANT Work Phone: [facility] [place] [facility] 04-21-2022 13:05-0400 Systolic blood pressure 120 mm[Hg] Arianna Queden LOCOMOTIVE ENGINEER.[facility] Work Phone: [facility] [place] [facility] 03-04-2022 14:16-0400 Body height 162.6 cm Arianna Queden LOCOMOTIVE ENGINEER.CORPORATE CONSULTANT Work Phone: [facility] [place] [facility] 03-04-2022 14:16-0400 Body temperature 98.49 [degF] Arianna Queden LOCOMOTIVE ENGINEER.CORPORATE CONSULTANT Work Phone: [facility] [place] [facility] 03-04-2022 14:16-0400 Body weight 101.61 kg Arianna Queden LOCOMOTIVE ENGINEER.CORPORATE CONSULTANT Work Phone: [facility] [place] [facility] 03-04-2022 14:16-0400 Diastolic blood pressure 78 mm[Hg] Arianna Queden LOCOMOTIVE ENGINEER.CORPORATE CONSULTANT Work Phone: [facility] [place] [facility] 03-04-2022 14:16-0400 Heart rate 95 /min Arianna Queden LOCOMOTIVE ENGINEER.CORPORATE CONSULTANT Work Phone: [facility] [place] [facility] 03-04-2022 14:16-0400 Respiratory rate 18 /min Arianna Queden LOCOMOTIVE ENGINEER.[facility] Work Phone: [facility] [place] [facility] 03-04-2022 14:16-0400 SaO2% (BldA) [Mass fraction] 98 % Arianna Queden LOCOMOTIVE ENGINEER.CORPORATE CONSULTANT Work Phone: [facility] [place] [facility] 03-04-2022 14:16-0400 Systolic blood pressure 124 mm[Hg] Arianna Queden LOCOMOTIVE ENGINEER.CORPORATE CONSULTANT Work Phone: [facility] [place] [facility] 12-10-2021 14:25-0400 Diastolic blood pressure 82 mm[Hg] Arianna Queden LOCOMOTIVE ENGINEER.CORPORATE CONSULTANT Work Phone: [facility] [place] [facility] 12-10-2021 14:25-0400 Systolic blood pressure 132 mm[Hg] Arianna Queden LOCOMOTIVE ENGINEER.CORPORATE CONSULTANT Work Phone: [facility] [place] [facility] 12-10-2021 14:08-0400 Body height 162.6 cm Arianna Queden LOCOMOTIVE ENGINEER.CORPORATE CONSULTANT Work Phone: [facility] [place] [facility] 12-10-2021 14:08-0400 Body temperature 98.4 [degF] Arianna Queden LOCOMOTIVE ENGINEER.CORPORATE CONSULTANT Work Phone: [facility] [place] [facility] 12-10-2021 14:08-0400 Body weight 103.87 kg Arianna Queden LOCOMOTIVE ENGINEER.CORPORATE CONSULTANT Work Phone: [facility] [place] [facility] 12-10-2021 14:08-0400 Heart rate 94 /min Arianna Queden LOCOMOTIVE ENGINEER.CORPORATE CONSULTANT Work Phone: [facility] [place] [facility] 12-10-2021 14:08-0400 SaO2% (BldA) [Mass fraction] 98 % Arianna Queden LOCOMOTIVE ENGINEER.CORPORATE CONSULTANT Work Phone: [facility] [place] [facility] 06-03-2021 13:25-0400 Body height 162.6 cm Marianela Fowler CORPORATE CONSULTANT Work Phone: [facility] 06-03-2021 13:25-0400 Body mass index (BMI) [Ratio] 39.05 kg/m2 Marianela Fowler CORPORATE CONSULTANT Work Phone: [facility] 06-03-2021 13:25-0400 Body temperature 98.1 [degF] Marianela Fowler CORPORATE CONSULTANT Work Phone: [facility] 06-03-2021 13:25-0400 Body weight 103.19 kg Marianela Fowler CORPORATE CONSULTANT Work Phone: [facility] 06-03-2021 13:25-0400 Diastolic blood pressure 93 mm[Hg] Marianela Fowler CORPORATE CONSULTANT Work Phone: [facility] 06-03-2021 13:25-0400 Heart rate 91 /min Marianela Fowler CORPORATE CONSULTANT Work Phone: [facility] 06-03-2021 13:25-0400 Respiratory rate 18 /min Marianela Fowler CORPORATE CONSULTANT Work Phone: [facility] 06-03-2021 13:25-0400 SaO2% (BldA) [Mass fraction] 97 % Marianela Fowler CORPORATE CONSULTANT Work Phone: [facility] 06-03-2021 13:25-0400 Systolic blood pressure 143 mm[Hg] Marianela Fowler CORPORATE CONSULTANT Work Phone: [facility] 02-01-2021 10:27-0400 Diastolic blood pressure 84 mm[Hg] Migel Gaminoler PA-C Work Phone: [facility] 02-01-2021 10:27-0400 Heart rate 78 /min Migel Gaminoler PA-C Work Phone: [facility] 02-01-2021 10:27-0400 Respiratory rate 16 /min Migel Browning PA-C Work Phone: [facility] 02-01-2021 10:27-0400 SaO2% (BldA) [Mass fraction] 98 % Migel Browning PA-C Work Phone: [facility] 02-01-2021 10:27-0400 Systolic blood pressure 141 mm[Hg] Migel Browning PA-C Work Phone: [facility] 01-16-2021 16:02-0400 Body height 162.6 cm Farhad Palmer PA-C Work Phone: [facility] 01-16-2021 16:02-0400 Body mass index (BMI) [Ratio] 38.62 kg/m2 Farhad Palmer PA-C Work Phone: [facility] 01-16-2021 16:02-0400 Body weight 102.06 kg Farhad Culvermann PA-C Work Phone: [facility] 01-16-2021 16:02-0400 Diastolic blood pressure 99 mm[Hg] Farhad Culvermann PA-C Work Phone: [facility] 01-16-2021 16:02-0400 Heart rate 66 /min Farhad Culvermann PA-C Work Phone: [facility] 01-16-2021 16:02-0400 Systolic blood pressure 163 mm[Hg] Farhad Culvermann PA-C Work Phone: [facility] 01-01-2021 10:50-0400 Diastolic blood pressure 76 mm[Hg] Migel Gaminoler PA-C Work Phone: [facility] 01-01-2021 10:50-0400 Heart rate 76 /min Migel Gaminoler PA-C Work Phone: [facility] 01-01-2021 10:50-0400 Respiratory rate 16 /min Migel Gaminoler PA-C Work Phone: [facility] 01-01-2021 10:50-0400 SaO2% (BldA) [Mass fraction] 96 % Migel aGminoler PA-C Work Phone: [facility] 01-01-2021 10:50-0400 Systolic blood pressure 118 mm[Hg] Migel Gaminoler PA-C Work Phone: [facility] 11-21-2020 13:59-0500 BMI (Body Mass Index) 38.76 kg/m2 Marianela Fowler [facility] 11-21-2020 13:59-0500 Body Temperature 98.1 [degF] Marianela Fowler [facility] 11-21-2020 13:59-0500 Body weight 102.42 kg Marianelaakua Fowler [facility] 11-21-2020 13:59-0500 BP Diastolic 71 mm[Hg] Marianelaauka Fowler [facility] 11-21-2020 13:59-0500 BP Systolic 118 mm[Hg] Marianela Fowler [facility] 11-21-2020 13:59-0500 Height 162.6 cm Marianelaakua Fowler [facility] 11-21-2020 13:59-0500 Pulse (Heart Rate) 81 /min Marianela Fowler [facility] 11-21-2020 13:59-0500 Pulse Oximetry 97 % Marianela Fowler [facility] 11-21-2020 13:59-0500 Respiratory Rate 16 /min Marianela Fowler [facility] 11-02-2020 00:00-0500 BP Diastolic 75 mm[Hg] Gayle Maravilla [facility] 11-02-2020 00:00-0500 BP Systolic 141 mm[Hg] Gayle Maravilla [facility] 11-02-2020 00:00-0500 Pulse (Heart Rate) 94 /min Gayle Maravilla [facility] 11-02-2020 00:00-0500 Pulse Oximetry 99 % Gayle Maravilla [facility] 11-02-2020 00:00-0500 Respiratory Rate 20 /min Gayle Maravilal [facility] 11-01-2020 21:47-0500 Respiratory rate 0 /min Gayle Maravilla [facility] 11-01-2020 21:14-0500 BMI (Body Mass Index) 39.99 kg/m2 Gayle Maravilla [facility] 11-01-2020 21:14-0500 Body Temperature 98.8 [degF] Gayle Maravilla [facility] 11-01-2020 21:14-0500 Body weight 105.69 kg Gayle Maravilla [facility] 11-01-2020 21:14-0500 Height 162.6 cm Gayle Maravilla [facility] 09-30-2020 05:18-0500 BMI (Body Mass Index) 39.99 kg/m2 [facility] 09-30-2020 05:18-0500 Body Temperature 97.59 [degF] [facility] 09-30-2020 05:18-0500 Body weight 105.69 kg [facility] 09-30-2020 05:18-0500 BP Diastolic 89 mm[Hg] [facility] 09-30-2020 05:18-0500 BP Systolic 172 mm[Hg] [facility] 09-30-2020 05:18-0500 Height 162.6 cm [facility] 09-30-2020 05:18-0500 Pulse (Heart Rate) 75 /min [facility] [facility] 09-30-2020 05:18-0500 Pulse Oximetry 99 % [facility] 09-30-2020 05:18-0500 Respiratory Rate 16 /min [facility] 08-22-2020 14:44-0500 BMI (Body Mass Index) 39.82 kg/m2 Marianela Fowler [facility] 08-22-2020 14:44-0500 Body Temperature 98.1 [degF] Marianela Fowler [facility] 08-22-2020 14:44-0500 Body weight 105.23 kg Marianela Fowler [facility] 08-22-2020 14:44-0500 BP Diastolic 77 mm[Hg] Marianela Fowler [facility] 08-22-2020 14:44-0500 BP Systolic 134 mm[Hg] Marianela Fowler [facility] 08-22-2020 14:44-0500 Pulse (Heart Rate) 75 /min Marianelaakua Fowler [facility] 08-22-2020 14:44-0500 Pulse Oximetry 97 % Marianelaakua Fowler [facility] 08-22-2020 14:44-0500 Respiratory Rate 16 /min Marianelaakua Fowler [facility] 06-26-2020 13:55-0400 BP Diastolic 76 mm[Hg] Migel Browning [facility] 06-26-2020 13:55-0400 BP Systolic 164 mm[Hg] Migel Browning [facility] 06-26-2020 13:55-0400 Pulse (Heart Rate) 82 /min Migel Browning [facility] 06-26-2020 13:55-0400 Pulse Oximetry 97 % Migel Browning [facility] 06-26-2020 13:55-0400 Respiratory Rate 16 /min Migel Browning [facility] 06-26-2020 10:14-0400 Body Temperature 98.6 [degF] [facility] 06-26-2020 10:14-0400 BP Diastolic 86 mm[Hg] [facility] 06-26-2020 10:14-0400 BP Systolic 150 mm[Hg] [facility] 06-26-2020 10:14-0400 Pulse (Heart Rate) 89 /min [facility] 06-26-2020 10:14-0400 Pulse Oximetry 98 % [facility] 06-26-2020 10:14-0400 Respiratory Rate 20 /min [facility] 06-25-2020 11:24-0400 Body Temperature 98.4 [degF] Michelle Niño [facility] 06-25-2020 11:24-0400 BP Diastolic 84 mm[Hg] Michelle Niño [facility] 06-25-2020 11:24-0400 BP Systolic 190 mm[Hg] Michelle Niño [facility] 06-25-2020 11:24-0400 Pulse (Heart Rate) 82 /min Michelle Niño [facility] 06-25-2020 11:24-0400 Pulse Oximetry 98 % Michelle Niño [facility] 06-22-2020 13:11-0400 Body Temperature 97.9 [degF] Jimbo Love [facility] 06-22-2020 13:11-0400 BP Diastolic 105 mm[Hg] Jimbo Love [facility] 06-22-2020 13:11-0400 BP Systolic 167 mm[Hg] [facility] 06-22-2020 13:11-0400 Pulse (Heart Rate) 66 /min [facility] 06-22-2020 13:11-0400 Pulse Oximetry 97 % [facility] 06-22-2020 12:51-0400 BP Diastolic 103 mm[Hg] Marva Combs [facility] 06-22-2020 12:51-0400 BP Systolic 169 mm[Hg] Marva Combs [facility] 06-22-2020 12:29-0400 Body Temperature 97.9 [degF] Marva Combs [facility] 06-22-2020 12:29-0400 Pulse (Heart Rate) 76 /min Marva Combs [facility] 06-22-2020 12:29-0400 Pulse Oximetry 99 % Marva Combs [facility] 06-22-2020 12:29-0400 Respiratory Rate 17 /min Marva Combs [facility] 06-21-2020 11:49-0400 Body Temperature 98.71 [degF] [facility] 11:49-0400 BP Diastolic 90 mm[Hg] [facility] 11:49-0400 BP Systolic 154 mm[Hg] [facility] 06-21-2020 11:49-0400 Pulse (Heart Rate) 91 /min [facility] 06-21-2020 11:49-0400 Pulse Oximetry 97 % [facility] 06-21-2020 11:49-0400 Respiratory Rate 18 /min [facility] 06-19-2020 14:50-0400 Body Temperature 97.7 [degF] Marva Combs [facility] 06-19-2020 14:50-0400 BP Diastolic 90 mm[Hg] Marva Combs [facility] 06-19-2020 14:50-0400 BP Systolic 127 mm[Hg] Marva Combs [facility] 06-19-2020 14:50-0400 Pulse (Heart Rate) 78 /min Marva Combs [facility] 06-19-2020 14:50-0400 Pulse Oximetry 98 % Marva Combs [facility] 06-19-2020 14:50-0400 Respiratory Rate 17 /min Marva Combs [facility] 06-19-2020 14:17-0400 Body Temperature 97.59 [degF] Neena Moreno [facility] 06-19-2020 14:17-0400 BP Diastolic 82 mm[Hg] Neena Moreno [facility] 06-19-2020 14:17-0400 BP Systolic 145 mm[Hg] Neena Moreno [facility] 06-19-2020 14:17-0400 Pulse (Heart Rate) 77 /min Neena Moreno [facility] 06-19-2020 14:17-0400 Pulse Oximetry 95 % Neena Moreno [facility] 06-19-2020 14:17-0400 Respiratory Rate 17 /min Neena Moreno [facility] 06-19-2020 12:38-0400 Body Temperature 98.49 [degF] May [facility] 06-19-2020 12:38-0400 BP Diastolic 80 mm[Hg] [facility] 06-19-2020 12:38-0400 BP Systolic 163 mm[Hg] [facility] 06-19-2020 12:38-0400 Pulse (Heart Rate) 85 /min [facility] 06-19-2020 12:38-0400 Pulse Oximetry 98 % [facility] 06-19-2020 12:38-0400 Respiratory Rate 20 /min [facility] 06-19-2020 07:12-0400 BMI (Body Mass Index) 40.51 kg/m2 Marianela Fowler [facility] 06-19-2020 07:12-0400 Body weight 107.05 kg Marianela Fowler [facility] 06-19-2020 07:12-0400 Height 162.6 cm Marianela Fowler [facility] 06-15-2020 13:32-0400 BP Diastolic 114 mm[Hg] [facility] 06-15-2020 13:32-0400 BP Systolic 157 mm[Hg] [facility] 06-15-2020 13:09-0400 Body Temperature 97.7 [degF] [facility] 06-15-2020 13:09-0400 Pulse (Heart Rate) 74 /min [facility] 06-15-2020 13:09-0400 Pulse Oximetry 96 % [facility] 06-15-2020 11:09-0400 Body Temperature 98.49 [degF] Michelle Niño [facility] 06-15-2020 11:09-0400 BP Diastolic 93 mm[Hg] Michelle Niño [facility] 06-15-2020 11:09-0400 BP Systolic 147 mm[Hg] Michelle Renay [facility] 06-15-2020 11:09-0400 Pulse (Heart Rate) 66 /min Michelle Renay [facility] 06-15-2020 11:09-0400 Pulse Oximetry 97 % Michelle Renay [facility] 06-14-2020 13:20-0400 Body Temperature 98.6 [degF] Garett Livingston [facility] 06-14-2020 13:20-0400 BP Diastolic 80 mm[Hg] Garett Livingston [facility] 06-14-2020 13:20-0400 BP Systolic 150 mm[Hg] Garett Livingston [facility] 06-14-2020 13:20-0400 Pulse (Heart Rate) 91 /min Garett Livingston [facility] 06-14-2020 13:20-0400 Pulse Oximetry 94 % Garett Livingston [facility] 06-14-2020 13:20-0400 Respiratory Rate 18 /min Garett Livingston [facility] 06-12-2020 15:49-0400 Body Temperature 97.81 [degF] Greg Valentine [facility] 06-12-2020 15:49-0400 BP Diastolic 82 mm[Hg] Greg Valentine [facility] 06-12-2020 15:49-0400 BP Systolic 130 mm[Hg] Greg Chavarriaulty [facility] 06-12-2020 15:49-0400 Pulse ([facility] Rate) 72 /[facility] 15:49-0400 Pulse Oximetry 97 % Greg Valentine [facility] 06-12-2020 15:49-0400 Respiratory Rate 16 /min Greg Valentine [facility] 06-11-2020 11:05-0400 Body Temperature 98.01 [degF] Jose Gallagher [facility] 06-11-2020 11:05-0400 BP Diastolic 75 mm[Hg] Jose Alcantars [facility] 06-11-2020 11:05-0400 BP Systolic 129 mm[Hg] Jose Alcantars [facility] 06-11-2020 11:05-0400 Pulse (Heart Rate) 69 /min Jose Gallagher [facility] 06-11-2020 11:05-0400 Pulse Oximetry 98 % Jose Gallagher [facility] 06-11-2020 11:05-0400 Respiratory Rate 14 /min Jose Gallagher [facility] 06-11-2020 06:00-0400 BMI (Body Mass Index) 43.06 kg/m2 Jose Gallagher [facility] 06-11-2020 06:00-0400 Body weight 113.8 kg Jose Gallagher [facility] 06-07-2020 11:47-0400 Height 162.6 cm Jose Gallagher [facility] 05-22-2020 11:09-0400 BMI (Body Mass Index) 40.51 kg/m2 Marianela Fowler [facility] 05-22-2020 11:09-0400 Body Temperature 98.01 [degF] Marianela Fowler [facility] 05-22-2020 11:09-0400 Body weight 107.05 kg Marianela Fowler [facility] 05-22-2020 11:09-0400 BP Diastolic 79 mm[Hg] Marianela Fowler [facility] 05-22-2020 11:09-0400 BP Systolic 136 mm[Hg] Marianela Fowler [facility] 05-22-2020 11:09-0400 Pulse (Heart Rate) 78 /min Marianela Fowler [facility] 05-22-2020 11:09-0400 Pulse Oximetry 97 % Marianela Fowler [facility] 05-22-2020 11:09-0400 Respiratory Rate 18 /min Marianela Fowler [facility] 04-18-2020 13:09-0400 BP Diastolic 68 mm[Hg] Jose Gallagher [facility] 04-18-2020 13:09-0400 BP Systolic 113 mm[Hg] Jose Gallagher [facility] 04-18-2020 13:09-0400 Pulse (Heart Rate) 66 /min Jose Gallagher [facility] 04-18-2020 13:09-0400 Pulse Oximetry 95 % Jose Gallagher [facility] 04-18-2020 13:09-0400 Respiratory Rate 16 /min Jose Gallagher [facility] 03-29-2020 10:16-0400 BMI (Body Mass Index) 40.75 kg/m2 Marianela Fowler [facility] 03-29-2020 10:16-0400 Body Temperature 98.01 [degF] Marianela Fowler [facility] 03-29-2020 10:16-0400 Body weight 107.68 kg Marianela Fowler [facility] 03-29-2020 10:16-0400 BP Diastolic 83 mm[Hg] Marianela Fowler [facility] 03-29-2020 10:16-0400 BP Systolic 127 mm[Hg] Marianela Fowler [facility] 03-29-2020 10:16-0400 Height 162.6 cm Marianela Fowler [facility] 03-29-2020 10:16-0400 Pulse (Heart Rate) 71 /min Marianela Fowler [facility] 03-29-2020 10:16-0400 Pulse Oximetry 97 % Marianela Fowler [facility] 03-29-2020 10:16-0400 Respiratory Rate 16 /min Marianela Fowler [facility] 03-08-2020 15:01-0400 BMI (Body Mass Index) 41.2 kg/m2 Babak Cano [facility] 03-08-2020 15:01-0400 Body weight 108.86 kg Babak Cano [facility] 03-08-2020 15:01-0400 BP Diastolic 86 mm[Hg] Babak Cano [facility] 03-08-2020 15:01-0400 BP Systolic 131 mm[Hg] Babak Cano [facility] 03-08-2020 15:01-0400 Height 162.6 cm Babak Cano [facility] 03-08-2020 15:01-0400 Pulse (Heart Rate) 91 /min Babak Cano [facility] 02-29-2020 09:19-0400 BMI (Body Mass Index) 42.05 kg/m2 Marianelaakua Fowler [facility] 02-29-2020 09:19-0400 Body Temperature 98.01 [degF] Marianela Fowler [facility] 02-29-2020 09:19-0400 Body weight 111.13 kg Marianela Fowler [facility] 02-29-2020 09:19-0400 BP Diastolic 83 mm[Hg] Marianelaakua Fowler [facility] 02-29-2020 09:19-0400 BP Systolic 126 mm[Hg] Marianelaakua Fowler [facility] 02-29-2020 09:19-0400 Pulse (Heart Rate) 80 /min Marianelaakua Fowler [facility] 02-29-2020 09:19-0400 Pulse Oximetry 95 % Marianelaakua Fowler [facility] 02-29-2020 09:19-0400 Respiratory Rate 18 /min Marianelaakua Fowler [facility] 01-12-2020 13:00-0400 BP Diastolic 97 mm[Hg] [facility] 01-12-2020 13:00-0400 BP Systolic 151 mm[Hg] [facility] 01-12-2020 13:00-0400 Pulse (Heart Rate) 102 /min [facility] 01-12-2020 13:00-0400 Pulse Oximetry 95 % [facility] 01-12-2020 12:26-0400 Respiratory Rate 16 /min [facility] 01-12-2020 10:41-0400 BMI (Body Mass Index) 44.63 kg/m2 [facility] 01-12-2020 10:41-0400 Body Temperature 98.2 [degF] [facility] 01-12-2020 10:41-0400 Body weight 117.94 kg [facility] 01-12-2020 10:41-0400 Height 162.6 cm [facility] 11-21-2019 14:29-0400 BP Diastolic 86 mm[Hg] Marianela Fowler [facility] 11-21-2019 14:29-0400 BP Systolic 129 mm[Hg] Marianelaakua Fowler [facility] 11-21-2019 14:10-0400 BMI (Body Mass Index) 44.23 kg/m2 Marianelaakua Fowler [facility] 11-21-2019 14:10-0400 Body Temperature 98.01 [degF] Marianela Fowler [facility] 11-21-2019 14:10-0400 Body weight 116.89 kg Marianela Fowler [facility] 11-21-2019 14:10-0400 Height 162.6 cm Marianela Fowler [facility] 11-21-2019 14:10-0400 Pulse (Heart Rate) 92 /min Marianela Fowler [facility] 11-21-2019 14:10-0400 Pulse Oximetry 95 % Marianela Fowler [facility] 11-21-2019 14:10-0400 Respiratory Rate 16 /min Marianelaakua Fowler [facility] 11-03-2019 13:15-0500 BP Diastolic 92 mm[Hg] Marianela Fowler [facility] 11-03-2019 13:15-0500 BP Systolic 141 mm[Hg] Marianela Fowler [facility] 11-03-2019 13:06-0500 BMI (Body Mass Index) 44.71 kg/m2 Marianelaakua Fowler [facility] 11-03-2019 13:06-0500 Body Temperature 97.81 [degF] Marianela Fowler [facility] 11-03-2019 13:06-0500 Body weight 118.16 kg Marianelaakua Fowler [facility] 11-03-2019 13:06-0500 Height 162.6 cm Marianelaakua Fowler [facility] 11-03-2019 13:06-0500 Pulse (Heart Rate) 76 /min Marianelaakua Fowler [facility] 11-03-2019 13:06-0500 Pulse Oximetry 95 % Marianela Fowler [facility] 11-03-2019 13:06-0500 Respiratory Rate 16 /min Marianelaakua Fowler [facility] 10-10-2019 14:04-0500 BP Diastolic 90 mm[Hg] Migel Browning [facility] 10-10-2019 14:04-0500 BP Systolic 154 mm[Hg] Migel Browning [facility] 10-10-2019 14:04-0500 Pulse (Heart Rate) 61 /min Migel Browning [facility] 10-10-2019 14:04-0500 Pulse Oximetry 97 % Migel Browning [facility] 08-22-2019 15:18-0500 BP Diastolic 83 mm[Hg] Marianela Fowler [facility] 08-22-2019 15:18-0500 BP Systolic 133 mm[Hg] Marianela Fowler [facility] 08-22-2019 14:36-0500 BMI (Body Mass Index) 43.94 kg/m2 Marianela Fowler [facility] 08-22-2019 14:36-0500 Body Temperature 97 [degF] Marianela Fowler [facility] 08-22-2019 14:36-0500 Body weight 116.12 kg Marianelaakua Fowler [facility] 08-22-2019 14:36-0500 Pulse (Heart Rate) 76 /min Marianelaakua Fowler [facility] 08-22-2019 14:36-0500 Pulse Oximetry 97 % Marianela Fowler [facility] 08-22-2019 14:36-0500 Respiratory Rate 16 /min Marianelaakua Fowler [facility] 08-08-2019 13:24-0500 BMI (Body Mass Index) 43.26 kg/m2 [facility] 08-08-2019 13:24-0500 Body Temperature 98.49 [degF] [facility] 08-08-2019 13:24-0500 Body weight 114.31 kg [facility] 08-08-2019 13:24-0500 BP Diastolic 83 mm[Hg] [facility] 08-08-2019 13:24-0500 BP Systolic 180 mm[Hg] [facility] 08-08-2019 13:24-0500 Height 162.6 cm [facility] 08-08-2019 13:24-0500 Pulse (Heart Rate) 83 /min [facility] 08-08-2019 13:24-0500 Pulse Oximetry 99 % [facility] 08-08-2019 13:24-0500 Respiratory Rate 16 /min [facility] 08-05-2019 12:49-0500 BMI (Body Mass Index) 43.26 kg/m2 [facility] 08-05-2019 12:49-0500 Body weight 114.31 kg [facility] 08-05-2019 12:49-0500 BP Diastolic 71 mm[Hg] [facility] 08-05-2019 12:49-0500 BP Systolic 104 mm[Hg] [facility] 08-05-2019 12:49-0500 Height 162.6 cm [facility] 08-05-2019 12:49-0500 Pulse (Heart Rate) 87 /min [facility] 05-16-2019 21:49-0400 Body Temperature 97.9 [degF] Steven Goff [facility] 05-16-2019 21:49-0400 Respiratory Rate 16 /min Steven Goff [facility] 05-11-2019 15:35-0400 BMI (Body Mass Index) 44.11 kg/m2 Karycarmen Lennon [facility] 05-11-2019 15:35-0400 Body weight 116.57 kg [facility] 15:35-0400 BP Diastolic 77 mm[Hg] Karycarmen Lennon [facility] 05-11-2019 15:35-0400 BP Systolic 112 mm[Hg] [facility] 05-11-2019 15:35-0400 Height 162.6 cm Kary [facility] 05-11-2019 15:35-0400 Pulse (Heart Rate) 63 /min Karycarmen Lennon [facility] 05-05-2019 13:56-0400 BP Diastolic 91 mm[Hg] Marianela Fowler [facility] 05-05-2019 13:56-0400 BP Systolic 151 mm[Hg] Marianela Fowler [facility] 05-05-2019 13:34-0400 BMI (Body Mass Index) 44.34 kg/m2 Marianelaakua Fowler [facility] 05-05-2019 13:34-0400 Body Temperature 97.39 [degF] Marianela Fowler [facility] 05-05-2019 13:34-0400 Body weight 117.53 kg Marianelaakua Fowler [facility] 05-05-2019 13:34-0400 Height 162.8 cm Marianelaakua Fowler [facility] 05-05-2019 13:34-0400 Pulse (Heart Rate) 69 /min Marianelaakua Fowler [facility] 05-05-2019 13:34-0400 Pulse Oximetry 97 % Marianelaakua Fowler [facility] 05-05-2019 13:34-0400 Respiratory Rate 16 /min Marianelaakua Fowler [facility] 04-29-2019 14:13-0400 BMI (Body Mass Index) 42.93 kg/m2 Garima Combs [facility] 04-29-2019 14:13-0400 Body weight 117.03 kg Garima Combs [facility] 04-29-2019 14:13-0400 BP Diastolic 84 mm[Hg] Garima Combs [facility] 04-29-2019 14:13-0400 BP Systolic 127 mm[Hg] Garima Combs [facility] 04-29-2019 14:13-0400 Height 165.1 cm Garima Combs [facility] 04-29-2019 14:13-0400 Pulse (Heart Rate) 84 /min Garima Combs [facility] 04-19-2019 04:46-0400 BP Diastolic 59 mm[Hg] Charlesamy Buckley [facility] 04-19-2019 04:46-0400 BP [facility] 127 mm[facility] 04-19-2019 04:46-0400 [facility] 92 [facility] 04-19-2019 04:46-0400 [facility] 04-19-2019 04:46-0400 [facility] 16 /min [facility] 04-19-2019 02:19-0400 Body Temperature 98.01 [degF] [facility] 04-19-2019 01:55-0400 BMI (Body Mass Index) 43.27 kg/m2 [facility] 04-19-2019 01:55-0400 [facility] 04-19-2019 01:55-0400 Height 165.1 cm [facility] 02-27-2019 21:11-0400 BP Diastolic 86 mm[Hg] [facility] 02-27-2019 21:11-0400 BP Systolic 140 mm[Hg] [facility] 02-27-2019 21:11-0400 Pulse (Heart Rate) 74 /min [facility] 02-27-2019 21:11-0400 Respiratory Rate 16 /min [facility] 02-27-2019 19:46-0400 BMI (Body Mass Index) 43.27 kg/m2 [facility] 02-27-2019 19:46-0400 Body Temperature 97.81 [degF] [facility] 02-27-2019 19:46-0400 Height 165.1 cm [facility] 02-27-2019 19:46-0400 Pulse Oximetry 99 % [facility] 02-27-2019 19:46-0400 Weight 117.94 kg [facility] 12-28-2018 11:01-0400 BMI (Body Mass Index) 44.11 kg/m2 Meka Aggarwal [facility] 04-16-2019 11:01-0400 BP Diastolic 73 mm[Hg] Meka Aggarwal [facility] 12-28-2018 11:01-0400 BP Systolic 124 mm[Hg] Meka Aggarwal [facility] 12-28-2018 11:010400 Height 165.1 cm Meka Aggarwal [facility] 12-28-2018 11:01-0400 Pulse (Heart Rate) 83 /min Meka Aggarwal [facility] 12-28-2018 11:01-0400 Weight 120.25 kg Meka Aggarwal [facility] 12-17-2018 11:42-0400 BMI (Body Mass Index) 44.6 kg/m2 Linh Pat [facility] 12-17-2018 11:42-0400 Height 165.1 cm [facility] 12-17-2018 11:42-0400 [facility] 121[facility]56 [facility] 12-14-2018 14:28-0400 BMI (Body Mass Index) 44.6 kg/m2 [facility] 12-14-2018 14:28-0400 Body Temperature 98.49 [degF] [facility] 12-14-2018 14:28-0400 Body weight 121.56 kg [facility] 12-14-2018 14:28-0400 BP Diastolic 90 mm[Hg] [facility] 12-14-2018 14:28-0400 BP Systolic 156 mm[Hg] [facility] 12-14-2018 14:28-0400 Height 165.1 cm [facility] 12-14-2018 14:28-0400 Pulse (Heart Rate) 78 /min [facility] 12-14-2018 14:28-0400 Pulse Oximetry 95 % [facility] 12-10-2018 02:14-0400 Pulse Oximetry 100 % [facility] 12-09-2018 22:16-0400 Body Temperature 98.91 [degF] [facility] 12-09-2018 22:16-0400 BP Diastolic 76 mm[Hg] [facility] 12-09-2018 22:16-0400 BP Systolic 173 mm[Hg] [facility] 12-09-2018 22:16-0400 Pulse (Heart Rate) 76 /min [facility] 12-09-2018 21:02-0400 BMI (Body Mass Index) 42.43 kg/m2 [facility] 12-09-2018 21:020400 Height 165.1 cm [facility] 12-09-2018 21:02-0400 Weight 115.67 kg [facility] 11-04-2018 11:27-0500 BMI (Body Mass Index) 43.43 kg/m2 Marianelaakua Fowler [facility] 11-04-2018 11:27-0500 Body Temperature 98.49 [degF] Marianelaakua Fowler [facility] 11-04-2018 11:27-0500 BP Diastolic 80 mm[Hg] Marianela [facility] 11-04-2018 11:27-0500 BP Systolic 136 mm[Hg] Marianelaakua Fowler [facility] 11-04-2018 11:27-0500 Height 165.1 cm Marianela [facility] 11-04-2018 11:27-0500 Pulse (Heart Rate) 77 /min Marianela [facility] 11-04-2018 11:27-0500 Pulse Oximetry 94 % Marianela [facility] 11-04-2018 11:27-0500 Respiratory Rate 18 /min Marianela [facility] 11-04-2018 11:27-0500 Weight 118.39 kg Marianelaakua Fowler [facility] 08-23-2018 13:10-0500 BMI (Body Mass Index) 44.1 kg/m2 Naomi Reece [facility] 08-23-2018 13:10-0500 BP Diastolic 91 mm[Hg] Naomi Reece [facility] 08-23-2018 13:10-0500 BP Systolic 143 mm[Hg] Naomi Reece [facility] 08-23-2018 13:10-0500 Height 165.1 cm Naomi Reece [facility] 08-23-2018 13:10-0500 Pulse (Heart Rate) 91 /min Naomi Reece [facility] 08-23-2018 13:10-0500 Weight 120.2 kg Naomi Reece [facility] 07-20-2018 11:03-0500 BMI (Body Mass Index) 44.93 kg/m2 Naomi Reece [facility] 07-20-2018 11:03-0500 BP Diastolic 84 mm[Hg] Naomi Reece [facility] 07-20-2018 11:03-0500 BP Systolic 133 mm[Hg] Naomi Reece [facility] 07-20-2018 11:03-0500 Height 165.1 cm Naomi Reece [facility] 07-20-2018 11:03-0500 Pulse (Heart Rate) 73 /min Naomi Reece [facility] 07-20-2018 11:03-0500 Weight 122.47 kg Naomi Reece [facility] 05-20-2018 13:06-0400 BMI (Body Mass Index) 43.27 kg/m2 Linh Pat [facility] 05-20-2018 13:06-0400 BP Diastolic 79 mm[Hg] [facility] 05-20-2018 13:06-0400 BP Systolic 121 mm[Hg] [facility] 05-20-2018 13:06-0400 Height 165.1 cm [facility] 05-20-2018 13:06-0400 Pulse (Heart Rate) 73 /min [facility] 05-20-2018 13:06-0400 Respiratory Rate 18 /min [facility] 05-20-2018 13:06-0400 Weight 117.94 kg [facility] 05-05-2018 11:17-0400 BMI (Body Mass Index) 44.43 kg/m2 Meka Price [facility] 05-05-2018 11:17-0400 Body Temperature 98.01 [degF] Meka Price [facility] 05-05-2018 11:17-0400 BP Diastolic 88 mm[Hg] Meka Price [facility] 05-05-2018 11:17-0400 BP Systolic 162 mm[Hg] Meka Price [facility] 05-05-2018 11:17-0400 Height 165.1 cm Meka Price [facility] 05-05-2018 11:17-0400 Pulse (Heart Rate) 68 /[facility] 11:17-0400 Pulse Oximetry 98 % [facility] 05-05-2018 11:17-0400 Weight 121.11 kg Meka Price [facility] 03-26-2018 11:14-0400 BP Diastolic 90 mm[Hg] Scott Espinosa [facility] 03-26-2018 11:14-0400 BP Systolic 130 mm[Hg] Scott Espinosa [facility] 03-26-2018 10:47-0400 BMI (Body Mass Index) 44.53 kg/m2 [facility] 03-26-2018 10:47-0400 Body Temperature 98.29 [degF] Scott Espinosa [facility] 03-26-2018 10:47-0400 Pulse (Heart Rate) 62 /min Scott Espinosa [facility] 03-26-2018 10:47-0400 Pulse Oximetry 98 % Scott Espinosa [facility] 03-26-2018 10:47-0400 Respiratory Rate 18 /min Scott Espinosa [facility] 03-26-2018 10:47-0400 Weight 121.38 kg Scottfletcher Espinosa [facility] 03-26-2018 08:48-0400 BMI (Body Mass Index) 44.26 kg/m2 [facility] 03-26-2018 08:48-0400 BP Diastolic 95 mm[Hg] [facility] 03-26-2018 08:48-0400 BP Systolic 164 mm[Hg] [facility] 03-26-2018 08:48-0400 Height 165.1 cm [facility] 03-26-2018 08:48-0400 Pulse (Heart Rate) 82 /min [facility] 03-26-2018 08:48-0400 Weight 120.66 kg [facility] 02-24-2018 12:53-0400 BMI (Body Mass Index) 44.9 kg/m2 Scottfletcher Espinosa [facility] 02-24-2018 12:53-0400 Body Temperature 97.81 [degF] Scott Espinosa [facility] 02-24-2018 12:53-0400 BP Diastolic 82 mm[Hg] Scottfletcher Espinosa [facility] 02-24-2018 12:53-0400 BP Systolic 126 mm[Hg] Scottfletcher Espinosa [facility] 02-24-2018 12:53-0400 Pulse (Heart Rate) 76 /min Scottfletcher Espinosa [facility] 02-24-2018 12:53-0400 Pulse Oximetry 98 % Scott Espinosa [facility] 02-24-2018 12:53-0400 Respiratory Rate 18 /min Scott Scott [facility] 02-24-2018 12:53-0400 Weight 118.66 kg Scott Espinosa [facility] 02-02-2018 11:03-0400 BMI (Body Mass Index) 44.8 kg/m2 [facility]-02-2018 11:03-0400 BP Diastolic 83 mm[Hg] [facility] 02-02-2018 11:03-0400 BP Systolic 137 mm[Hg] [facility] 02-02-2018 11:03-0400 Height 162.6 cm [facility] 02-02-2018 11:03-0400 Pulse (Heart Rate) 73 /min [facility] 02-02-2018 11:03-0400 Respiratory Rate 18 /min [facility] 02-02-2018 11:03-0400 Weight 118.39 kg [facility] 01-13-2018 15:11-0400 BMI (Body Mass Index) 44.29 kg/m2 [facility] 01-13-2018 15:11-0400 BP Diastolic 83 mm[Hg] [facility] 01-13-2018 15:11-0400 BP Systolic 131 mm[Hg] [facility] 01-13-2018 15:11-0400 Height 162.6 cm [facility] 01-13-2018 15:11-0400 Pulse (Heart Rate) 87 /min [facility] 01-13-2018 15:11-0400 Respiratory Rate 20 /min [facility] 01-13-2018 15:11-0400 Weight 117.03 kg [facility] 12-02-2017 13:37-0400 BMI (Body Mass Index) 44.11 kg/m2 [facility] 12-02-2017 13:37-0400 BP Diastolic 90 mm[Hg] [facility] 12-02-2017 13:37-0400 BP Systolic 150 mm[Hg] [facility] 12-02-2017 13:37-0400 Height 162.6 cm [facility] 12-02-2017 13:37-0400 Pulse (Heart Rate) 82 /min [facility] 12-02-2017 13:37-0400 Respiratory Rate 20 /min [facility] 12-02-2017 13:37-0400 Weight 116.57 kg [facility] 11-04-2017 14:32-0500 BP Diastolic 82 mm[Hg] [facility] 11-04-2017 14:32-0500 BP Systolic 121 mm[Hg] [facility] 11-04-2017 14:32-0500 Height 162.6 cm [facility] 11-04-2017 14:32-0500 Pulse (Heart Rate) 89 /min Linh Pat [facility] 10-16-2017 10:08-0500 BMI (Body Mass Index) 43.26 kg/m2 Angeli Moran [facility] Work Phone: 10-16-2017 10:08-0500 BP Diastolic 84 mm[Hg] Angeli Moran [facility] Work Phone: 10-16-2017 10:08-0500 BP Systolic 128 mm[Hg] Angeli Moran [facility] Work Phone: 10-16-2017 10:08-0500 Height 162.6 cm Angeli Moran [facility] Work Phone: 10-16-2017 10:08-0500 Pulse (Heart Rate) 91 /min Angeli Moran [facility] Work Phone: 10-16-2017 10:08-0500 Pulse Oximetry 99 % Angeli Moran [facility] Work Phone: 10-16-2017 10:08-0500 Weight 114.31 kg Angeli Moran [facility] Work Phone: 10-15-2017 13:54-0500 BMI (Body Mass Index) 43.31 kg/m2 Nancy Shanks [facility] Work Phone: 10-15-2017 13:54-0500 Body Temperature 97.81 [degF] Nancy Shanks [facility] Work Phone: 10-15-2017 13:54-0500 BP Diastolic 66 mm[Hg] Nancy Shanks [facility] Work Phone: 10-15-2017 13:54-0500 BP Systolic 99 mm[Hg] Nancy Shanks [facility] Work Phone: 10-15-2017 13:54-0500 Pulse (Heart Rate) 89 /min Nancy Shanks [facility] Work Phone: 10-15-2017 13:54-0500 Pulse Oximetry 95 % Nancy Shanks [facility] Work Phone: 10-15-2017 13:54-0500 [facility] 114[facility]44 [facility] 10-09-2017 08:49-0500 BMI (Body Mass Index) 43.77 kg/m2 Nancy Shanks [facility] Work Phone: 10-09-2017 08:49-0500 Body Temperature 97.7 [degF] Nancy Shanks [facility] Work Phone: 10-09-2017 08:49-0500 BP Diastolic 98 mm[Hg] Nancy Shanks [facility] Work Phone: 10-09-2017 08:49-0500 BP Systolic 168 mm[Hg] Nancy Shanks [facility] Work Phone: 10-09-2017 08:49-0500 Height 162.6 cm Nancy Shanks [facility] Work Phone: 10-09-2017 08:49-0500 Pulse (Heart Rate) 70 /min Nancy Shanks [facility] Work Phone: 10-09-2017 08:49-0500 Pulse Oximetry 99 % Nancy Shanks [facility] Work Phone: 10-09-2017 08:49-0500 Respiratory Rate 16 /min Nancy Shanks [facility] Work Phone: 10-09-2017 08:49-0500 Weight 115.67 kg Nancy Shanks [facility] Work Phone: 10-08-2017 15:18-0500 BMI (Body Mass Index) 44.11 kg/m2 Linh Pat [facility] Work Phone: 10-08-2017 15:18-0500 BP Diastolic 96 mm[Hg] Linh Pat [facility] Work Phone: 10-08-2017 15:18-0500 BP Systolic 174 mm[Hg] Linh Pat [facility] Work Phone: 10-08-2017 15:18-0500 Height 162.6 cm [facility] 10-08-2017 15:18-0500 Pulse (Heart Rate) 91 /min [facility] 10-08-2017 15:18-0500 Respiratory Rate 18 /min Linh Pat [facility] Work Phone: 10-08-2017 15:18-0500 Weight 116.57 kg Linh Pat [facility] Work Phone: 09-10-2017 13:11-0500 BMI (Body Mass Index) 44.11 kg/m2 Linh Pat [facility] Work Phone: 09-10-2017 13:11-0500 BP Diastolic 114 mm[Hg] Linh Pat [facility] Work Phone: 09-10-2017 13:11-0500 BP Systolic 179 mm[Hg] Linh Pat [facility] Work Phone: 09-10-2017 13:11-0500 Height 162.6 cm Linh Pat [facility] Work Phone: 09-10-2017 13:11-0500 Pulse (Heart Rate) 86 /min Linh Pat [facility] Work Phone: 09-10-2017 13:11-0500 Respiratory Rate 20 /min Linh Pat [facility] Work Phone: 09-10-2017 13:11-0500 Weight 116.57 kg Linh Pat [facility] Work Phone: 07-02-2017 15:14-0400 BMI (Body Mass Index) 42.74 kg/m2 [facility] Pat [facility] Work Phone: 07-02-2017 15:14-0400 BP Diastolic 84 mm[Hg] Linh Pat [facility] Work Phone: 07-02-2017 15:14-0400 BP Systolic 143 mm[Hg] Linh Pat [facility] Work Phone: 07-02-2017 15:14-0400 Height 162.6 cm Linh Pat [facility] Work Phone: 07-02-2017 15:14-0400 Pulse (Heart Rate) 69 /min [facility] 07-02-2017 15:14-0400 Respiratory Rate 20 /min Linh Pat [facility] Work Phone: 07-02-2017 15:14-0400 Weight 112.95 kg Linh Pat [facility] Work Phone: 04-20-2017 13:19-0400 BMI (Body Mass Index) 41.52 kg/m2 Nancy Shanks [facility] Work Phone: 04-20-2017 13:19-0400 Body Temperature 97.7 [degF] Nancy Shanks [facility] Work Phone: 04-20-2017 13:19-0400 BP Diastolic 90 mm[Hg] Nancy Shanks [facility] Work Phone: 04-20-2017 13:19-0400 BP Systolic 135 mm[Hg] Nancy Shanks [facility] Work Phone: 04-20-2017 13:19-0400 Height 165.1 cm Nancy Shanks [facility] Work Phone: 04-20-2017 13:19-0400 Pulse (Heart Rate) 70 /min Nancy Shanks [facility] Work Phone: 04-20-2017 13:19-0400 Pulse Oximetry 98 % Nancy Shanks [facility] Work Phone: 04-20-2017 13:19-0400 Respiratory Rate 18 /min Nancy Shanks [facility] Work Phone: 04-20-2017 13:19-0400 Weight 113.17 [facility]: Encounters Encounter Date Encounter Type Care Provider Facility Start: 04-03-2025 End: 04-03-2025 Patient encounter procedure Irma Valera MD Work Phone: Endocrinology Comment on above: Type 2 diabetes jenny itus without complication, with long-term current use of insulin (HCC) (Primary Dx) Start: 04-03-2025 End: 04-03-2025 ambulatory IRMA VALERA Facility:[facility] Start: 03-28-2025 End: 03-28-2025 ambulatory Maru Ho RN [facility] Comment on above: Population Health Na vigation Outreach ([facility] Attributed Member - Chart Review ) Start: 03-10-2025 End: 03-10-2025 Telephone encounter Ariannakianna Ryanden LOCOMOTIVE ENGINEER.CORPORATE CONSULTANT Work Phone: [facility] Comment on above: Medication Problem Start: 03-09-2025 End: 03-09-2025 Telephone encounter Arianna Ryanden LOCOMOTIVE ENGINEER.CORPORATE CONSULTANT Work Phone: [facility] Comment on above: Electronic Communica tion; Forms Start: 03-08-2025 End: 03-08-2025 ambulatory Arianna Ryanden LOCOMOTIVE ENGINEER.CORPORATE CONSULTANT Work Phone: [facility] Start: 03-08-2025 End: 03-08-2025 Follow-up encounter Arianna Ryanden LOCOMOTIVE ENGINEER.CORPORATE CONSULTANT Work Phone: [facility] Comment on above: ED Follow-up ([place] [facility] Villator[facility] 03/02/25) Start: 03-07-2025 End: 03-10-2025 Telephone encounter Arianna Thorne Queden LOCOMOTIVE ENGINEER.CORPORATE CONSULTANT Work Phone: [facility] Comment on above: Orders Start: 03-02-2025 End: 03-02-2025 Emergency department patient visit ARIANNA ROSALES Facility:[facility] Start: 02-28-2025 End: 02-28-2025 Patient encounter procedure Arianan A Queden LOCOMOTIVE ENGINEER.CORPORATE CONSULTANT Work Phone: [facility] Comment on above: Type 2 diabetes jenny itus with peripheral neuropathy (HCC) (Primary Dx); terminal gauger (current) use of insulin (HCC); Hypertension, essential; Hyperlipidemia, mixed; Class 2 severe obesity with serious comorbidity and body mass index (BMI) of 37.0 to 37.9 in adult, unspecified obesity type (HCC); Encounter for immunization Start: 02-28-2025 End: 02-28-2025 ambulatory ARIANNA ROSALES Facility:[facility] Start: 02-07-2025 End: 02-09-2025 Refill Arianna A Cheri LOCOMOTIVE ENGINEER.CORPORATE CONSULTANT Work Phone: [facility] Comment on above: Refill Request Start: 01-23-2025 End: 01-23-2025 ambulatory Maru Ho RN [facility] Comment on above: Population Health Na vigation Outreach ([facility] Attributed Member - Chart Review : Medication Adherence ) Start: 01-19-2025 End: 01-19-2025 ambulatory Angeli Chan RN Work Phone: Project Systems Engineer Start: 01-19-2025 End: 01-19-2025 Home visit Angeli Chan RN Work Phone: Project Systems Engineer Comment on above: Primary Care Coordin ator- Other (CDM) Start: 01-04-2025 End: 01-11-2025 Follow-up encounter Arianna Rosales LOCOMOTIVE ENGINEER.CORPORATE CONSULTANT Work Phone: [facility] Comment on above: Results Start: 01-03-2025 ambulatory ARIANNA ROSALES Facili ty:[facility] Start: 01-03-2025 End: 01-03-2025 Subsequent hospital visit by physician Screen Mammo [facility] Comment on above: Encounter for screen ing mammogram for breast cancer [Z12.31] Start: 01-02-2025 End: 01-02-2025 ambulatory Maru Ho RN [facility] Comment on above: Population Health Na vigation Outreach ([facility] Attributed Member - Chart Review ) Start: 10-17-2024 End: 10-17-2024 ambulatory Maru Ho RN [facility] Start: 09-20-2024 End: 09-20-2024 ambulatory Angeli Pena AG Project Systems Engineer Start: 09-20-2024 End: 09-20-2024 Home visit Angeli HOUSE Project Systems Engineer Comment on above: Population Health Na vigation Outreach ([facility] Attributed Member - Chart Review/) Start: 09-19-2024 End: 09-19-2024 Refill Arianna A Queden LOCOMOTIVE ENGINEER.JOVANA Work Phone: [facility] Comment on above: Refill Request Start: 09-12-2024 End: 09-12-2024 Refill Arianna A Queden LOCOMOTIVE ENGINEER.CORPORATE CONSULTANT Work Phone: [facility] Comment on above: Refill Request Start: 08-30-2024 End: 08-30-2024 Patient encounter procedure Arianna A Queden LOCOMOTIVE ENGINEER.CORPORATE CONSULTANT Work Phone: [facility] Comment on above: Hypertension, essent ial (Primary Dx); Hyperlipidemia, mixed; Diabetic polyneuropathy associated with type 2 diabetes mellitus (HCC) Start: 08-30-2024 End: 08-30-2024 ambulatory ARIANNA A QUEDEN Facility:[facility] Start: 08-22-2024 End: 08-22-2024 Refill Arianna A Queden LOCOMOTIVE ENGINEER.CORPORATE CONSULTANT Work Phone: [facility] Comment on above: Refill Request Start: 07-21-2024 End: 07-22-2024 Refill Arianna A Queden LOCOMOTIVE ENGINEER.CORPORATE CONSULTANT Work Phone: [facility] Comment on above: Refill Request Start: 07-04-2024 End: 07-04-2024 ambulatory Maru Ho RN [facility] Start: 06-04-2024 End: 09-11-2024 ambulatory Arianna A Queden LOCOMOTIVE ENGINEER.CORPORATE CONSULTANT Work Phone: [facility] Comment on above: Jt Andres Start: 05-12-2024 End: 05-12-2024 ambulatory Angeli Solizbocker [facility] Comment on above: Population Health Na vigation Outreach ([facility] Attributed Member- Needs 2023 Medicare Wellness Appt Scheduled/) Start: 04-25-[address] [facility] Comment on above: Population Health Na vigation Outreach ([facility] Attributed Member- Needs 2023 Medicare Wellness Appt Scheduled/) Start: 04-18-2024 End: 04-18-2024 Orders Only Marianela Marquez Anil CORPORATE CONSULTANT Work Phone: [facility] Comment on above: Breast cancer screen ing by mammogram Start: 04-11-[address] [facility] Comment on above: Population Health Na vigation Outreach ([facility] Attributed Member- Needs 2023 Medicare Wellness Appt Scheduled/) Start: 04-07-2024 ambulatory Shelby Leslie Facility :[facility] Start: 02-23-2024 ambulatory Arianna Thorne Isis rubio APRN.CORPORATE CONSULTANT Work Phone: [facility] Comment on above: Meds Start: 02-15-2024 Telephone encounter Ada Mooney Work Phone: Podiatry Comment on above: Orders Start: 02-10-2024 ambulatory Tracey Blakely [facility] Start: 02-10-2024 Home visit Tracey Blakely [facility] Comment on above: Weekly phone contact (Recurring) for Transitional Care Management Start: 01-26-2024 ambulatory Tracey Blakely [facility] Start: 01-26-2024 Home visit Tracey Blakely RN [facility] Comment on above: Initial phone contac t for Transitional Care Management Start: 01-22-2024 Admission to [facility] Ada Shin Work Phone: Podiatry Comment on above: Surgery on Toe Toe Surgery Start: 01-22-2024 ambulatory Ada augustin Work Phone: Podiatry Start: 01-20-2024 End: 01-25-2024 Evaluation and management of inpatient DAMARIS CONKLE-LAGROUX Facility:[facility] Start: 01-20-2024 Telephone encounter Karuna roper MD Work Phone: [facility] Comment on above: Hospital To Hospital Start: 01-11-2024 Telephone encounter Arianna Rosales LOCOMOTIVE ENGINEER.CORPORATE CONSULTANT Work Phone: [facility] Comment on above: Results Start: 01-05-2024 End: 01-05-2024 Subsequent hospital visit by physician [facility] Comment on above: Swelling of toe of r ight foot [M79.89] Start: 01-05-2024 End: 01-05-2024 Patient encounter procedure Arianna Rosales LOCOMOTIVE ENGINEER.CORPORATE CONSULTANT Work Phone: [facility] Comment on above: Hypertension, essent ial (Primary Dx); Type 2 diabetes mellitus with peripheral neuropathy (HCC); Hyperlipidemia, mixed; Neuropathy; Swelling of toe of right foot; Cellulitis of toe of right foot Start: 12-30-2023 End: 12-30-2023 [facility] Facility:[facility] Start: 12-24-2023 Telephone encounter Arianna Rosales LOCOMOTIVE ENGINEER.CORPORATE CONSULTANT Work Phone: [facility] Comment on above: Medication Problem Start: 12-22-2023 Telephone encounter Ada Rangel david Work Phone: Podiatry Comment on above: Patient Question; Or ders Start: 08-25-2023 Chart abstracting Arianna yepez LOCOMOTIVE ENGINEER.CORPORATE CONSULTANT Work Phone: [facility] Start: 07-31-2023 ambulatory Arianna Marinelli en LOCOMOTIVE ENGINEER.CORPORATE CONSULTANT Work Phone: [facility] Comment on above: ED OUTREACH Start: 07-28-2023 End: 07-28-2023 Emergency department patient visit Arianna Rosales QUALITY TECHNICIAN Facility:[facility] Start: 07-15-2023 End: 07-15-2023 ambulatory [facility] Facility:[facility] Start: 07-14-2023 ambulatory Arianna Marinelli en LOCOMOTIVE ENGINEER.CORPORATE CONSULTANT Work Phone: [facility] Start: 07-14-2023 Letter encounter Arianna colindres LOCOMOTIVE ENGINEER.CORPORATE CONSULTANT Work Phone: [facility] Comment on above: Letter for Norberto and alejandro dalton Start: 06-29-2023 Telephone encounter Arianna A Queden LOCOMOTIVE ENGINEER.CORPORATE CONSULTANT Work Phone: [facility] Comment on above: Electronic Communica tion; Forms Start: 06-29-2023 End: 06-29-2023 Patient encounter procedure Arianna A Queden LOCOMOTIVE ENGINEER.CORPORATE CONSULTANT Work Phone: [facility] Comment on above: Type 2 diabetes jenny itus with peripheral neuropathy (HCC) (Primary Dx); Hypertension, essential; Hyperlipidemia, mixed; Gastroesophageal reflux disease, unspecified whether esophagitis present; DARLINE (obstructive sleep apnea); Decreased appetite; Dental caries Start: 06-25-2023 End: 06-25-2023 ambulatory [facility] Facility:[facility] Start: 06-08-2023 Refill Arianna A Qued en LOCOMOTIVE ENGINEER.CORPORATE CONSULTANT Work Phone: [facility] Comment on above: Refill Request Cpap Start: 06-03-2023 End: 06-03-2023 ambulatory [facility] Facility:[facility] Start: 05-01-2023 End: 05-01-2023 [facility] Facility:[facility] Start: 04-16-2023 Telephone encounter Arianna A Queden LOCOMOTIVE ENGINEER.CORPORATE CONSULTANT Work Phone: [facility] Comment on above: Results Start: 04-16-2023 End: 04-16-2023 Subsequent hospital visit by physician Mammo/Bone D[facility] Start: 04-15-2023 Refill Arianna A Qued en LOCOMOTIVE ENGINEER.CORPORATE CONSULTANT Work Phone: [facility] Comment on above: Refill Request Start: 04-13-2023 End: 04-13-2023 Patient encounter procedure [facility] [place] Bed [facility] Comment on above: DARLINE (obstructive sle ep apnea) Start: 04-10-2023 ambulatory Arianna A Qued en LOCOMOTIVE ENGINEER.CORPORATE CONSULTANT Work Phone: [facility] Start: 04-10-2023 Patient encounter procedure Arianna A Queden LOCOMOTIVE ENGINEER.CORPORATE CONSULTANT Work Phone: [facility] Comment on above: Referral letter Start: 04-08-2023 Refill Arianna A Qued en LOCOMOTIVE ENGINEER.CORPORATE CONSULTANT Work Phone: [facility] Comment on above: Refill Request Start: 03-28-2023 Refill Arianna A Qued en LOCOMOTIVE ENGINEER.CORPORATE CONSULTANT Work Phone: [facility] Comment on above: Refill Request Start: 03-23-2023 End: 03-23-2023 Patient encounter procedure Arianna A Queden LOCOMOTIVE ENGINEER.CORPORATE CONSULTANT Work Phone: [facility] Comment on above: Type 2 diabetes jenny itus without complication, with long-term current use of insulin (HCC) (Primary Dx); Hypertension, essential; Hyperlipidemia, mixed; DARLINE (obstructive sleep apnea); Neuropathy; Decreased appetite Start: 03-10-2023 Telephone encounter Arianna A Queden LOCOMOTIVE ENGINEER.CORPORATE CONSULTANT Work Phone: [facility] Comment on above: Orders Start: 03-09-2023 End: 03-13-2023 Patient encounter procedure [facility] [place] [facility] [place] Comment on above: DARLINE (obstructive sle ep apnea) Start: 03-06-2023 Refill Arianna A Qued en LOCOMOTIVE ENGINEER.CORPORATE CONSULTANT Work Phone: [facility] Comment on above: Refill Request Start: 01-26-2023 Orders Only Marianela Campbell en CORPORATE CONSULTANT Work Phone: [facility] Comment on above: Breast cancer screen ing by mammogram Start: 01-21-2023 ambulatory Nhung Ballesteros [facility] Start: 01-18-2023 ambulatory Arianna A Qued en LOCOMOTIVE ENGINEER.CORPORATE CONSULTANT Work Phone: [facility] Comment on above: Repertory Infection Start: 01-16-2023 Refill Arianna A Qued en LOCOMOTIVE ENGINEER.CORPORATE CONSULTANT Work Phone: [facility] Comment on above: Refill Request Start: 01-14-2023 Refill Arianna A Qued en LOCOMOTIVE ENGINEER.CORPORATE CONSULTANT Work Phone: [facility] Comment on above: Refill Request Start: 12-29-2022 Telephone encounter Ada Mooney Work Phone: Podiatry Comment on above: Orders Start: 12-23-2022 Telephone encounter Arianna A Queden LOCOMOTIVE ENGINEER.CORPORATE CONSULTANT Work Phone: [facility] Comment on above: Medication Update Start: 12-22-2022 End: 12-22-2022 Patient encounter procedure Arianna A Queden LOCOMOTIVE ENGINEER.CORPORATE CONSULTANT Work Phone: [facility] Comment on above: Type 2 diabetes jenny itus with peripheral neuropathy (HCC) (Primary Dx); DARLINE (obstructive sleep apnea); CPAP (continuous positive airway pressure) dependence; Dermoid cyst of spine; Primary hypertension; Mixed hyperlipidemia; Encounter for immunization; Encounter for screening mammogram for malignant neoplasm of breast; Vaginal yeast infection Start: 12-22-2022 ambulatory Arianna A Qued en LOCOMOTIVE ENGINEER.CORPORATE CONSULTANT Work Phone: [facility] Comment on above: A1c Start: 12-12-2022 ambulatory Arianna A Qued en LOCOMOTIVE ENGINEER.CORPORATE CONSULTANT Work Phone: [facility] Comment on above: BloodTest Donna Neurologist Start: 12-01-2022 ambulatory Arianna A Qued en LOCOMOTIVE ENGINEER.CORPORATE CONSULTANT Work Phone: [facility] Comment on above: Cpap Start: 11-07-2022 Telephone encounter Arianna Mati Queden LOCOMOTIVE ENGINEER.CORPORATE CONSULTANT Work Phone: [facility] Comment on above: Insurance Authorizat ion (Ozempic pen) Start: 10-13-2022 End: 10-13-2022 Patient encounter procedure Ada Shin Work Phone: Podiatry Comment on above: Onychomycosis (Prima ry Dx); Type 2 diabetes mellitus with peripheral neuropathy (HCC) Start: 10-05-2022 Refill Arianna A Qued en LOCOMOTIVE ENGINEER.CORPORATE CONSULTANT Work Phone: [facility] Comment on above: Refill Request Start: 10-03-2022 Telephone encounter Arianna A Queden LOCOMOTIVE ENGINEER.CORPORATE CONSULTANT Work Phone: [facility] Comment on above: Orders Start: 09-29-2022 End: 09-29-2022 Patient encounter procedure Arianna A Queden LOCOMOTIVE ENGINEER.CORPORATE CONSULTANT Work Phone: [facility] Comment on above: Type 2 diabetes jenny itus with peripheral neuropathy (HCC) (Primary Dx); Painful mouth; Dental caries; Lung nodule; Gastroesophageal reflux disease, unspecified whether esophagitis present Start: 09-22-2022 End: 09-22-2022 Subsequent hospital visit by physician [facility] Work Phone: [facility] Comment on above: Lung nodules [R91.8] Start: 08-29-2022 Telephone encounter Arianna A Queden LOCOMOTIVE ENGINEER.CORPORATE CONSULTANT Work Phone: [facility] Comment on above: Results; Orders; Con sult Start: 08-15-2022 Refill Arianna A Qued en LOCOMOTIVE ENGINEER.CORPORATE CONSULTANT Work Phone: [facility] Comment on above: Refill Request Start: 07-29-2022 ambulatory Arianna A Qued en LOCOMOTIVE ENGINEER.CORPORATE CONSULTANT Work Phone: [facility] Start: 07-29-2022 Letter encounter Arianna A Que den LOCOMOTIVE ENGINEER.CORPORATE CONSULTANT Work Phone: [facility] Comment on above: Letter Start: 07-19-2022 Refill Arianna A Qued en LOCOMOTIVE ENGINEER.CORPORATE CONSULTANT Work Phone: [facility] Comment on above: Refill Request Letter for JFS Start: 07-15-2022 ambulatory Arianna A Qued en LOCOMOTIVE ENGINEER.CORPORATE CONSULTANT Work Phone: Project Systems Engineer Start: 05-26-2022 End: 05-26-2022 Subsequent hospital visit by physician Tracey [facility] Demond Francois Work Phone: Radiology Comment on above: Ingrowing toenail wi th infection [L60.0] Start: 05-26-2022 End: 05-26-2022 Patient encounter procedure Ada Shin Work Phone: Podiatry Comment on above: Ingrowing toenail wi th infection (Primary Dx) Start: 05-08-2022 Refill Ashley C Tril l LOCOMOTIVE ENGINEER.CORPORATE CONSULTANT Work Phone: [facility] Comment on above: Refill Request Start: 04-21-2022 End: 04-21-2022 Patient encounter procedure Arianna A Queden LOCOMOTIVE ENGINEER.CORPORATE CONSULTANT Work Phone: [facility] Comment on above: Well woman exam with routine gynecological exam (Primary Dx); Screening for cervical cancer; Type 2 diabetes mellitus with peripheral neuropathy (HCC); Fibromyalgia; Decreased appetite; Dysphagia, unspecified type Start: 04-14-2022 Telephone encounter Ada Mooney Work Phone: Podiatry Comment on above: Appointment Start: 03-25-2022 Refill Arianna A Qued en LOCOMOTIVE ENGINEER.CORPORATE CONSULTANT Work Phone: [facility] Comment on above: Refill Request Start: 03-24-2022 Telephone encounter Arianna Thorne Queden LOCOMOTIVE ENGINEER.CORPORATE CONSULTANT Work Phone: [facility] Comment on above: Results Start: 03-16-2022 Refill Arianna A Qued en LOCOMOTIVE ENGINEER.CORPORATE CONSULTANT Work Phone: [facility] Comment on above: Refill Request Start: 03-10-2022 End: 03-10-2022 Subsequent hospital visit by physician [facility] Work Phone: [facility] Comment on above: Lung nodules [R91.8] Start: 03-04-2022 End: 03-04-2022 Patient encounter procedure Arianna A Queden LOCOMOTIVE ENGINEER.CORPORATE CONSULTANT Work Phone: [facility] Comment on above: Fibromyalgia (Primar y Dx); Breathlessness lying flat Start: 02-24-2022 End: 02-24-2022 Patient encounter procedure Ada Vermaomkar Work Phone: Podiatry Comment on above: Onychomycosis (Prima ry Dx); Pain in toe of left foot; Pain in toe of right foot; Type 2 diabetes mellitus with peripheral neuropathy (HCC); Ingrowing toenail Start: 02-06-2022 Telephone encounter Arianna Rosales LOCOMOTIVE ENGINEER.CORPORATE CONSULTANT Work Phone: [facility] Comment on above: Medication Problem Start: 02-03-2022 Telephone encounter Arianna Rosales LOCOMOTIVE ENGINEER.CORPORATE CONSULTANT Work Phone: [facility] Comment on above: Results; Orders Start: 01-14-2022 ambulatory Ada Vermara augustin Work Phone: Podiatry Comment on above: Shoe script Start: 01-14-2022 Letter encounter Arianna colindres LOCOMOTIVE ENGINEER.CORPORATE CONSULTANT Work Phone: [facility] Comment on above: Letter for Job and f amily Start: 01-14-2022 Telephone encounter Ada Juan Carlos hernandez Work Phone: Podiatry Comment on above: Results Start: 01-06-2022 End: 01-06-2022 Patient encounter procedure Ada Vermaomkar Work Phone: Podiatry Comment on above: Porokeratosis (Prima ry Dx); Type 2 diabetes mellitus with peripheral neuropathy (HCC); Onychomycosis; Pain in toe of left foot; Pain in toe of right foot; Diminished pulses in lower extremity Start: 12-31-2021 End: 12-31-2021 Subsequent hospital visit by physician Mammo/Bone Density [facility] Comment on above: Encounter for screen ing mammogram for malignant neoplasm of breast [Z12.31] Start: 12-31-2021 Documentation procedure Mammog mari Coordinator [facility] Start: 12-31-2021 Letter encounter Mammography Coordinator [place] ANCILLARY AREA NOT LISTED Start: 12-26-2021 Telephone encounter Arianna Rosales LOCOMOTIVE ENGINEER.CORPORATE CONSULTANT Work Phone: [facility] Comment on above: patient reminder Start: 12-17-2021 ambulatory Arianna A Qued en LOCOMOTIVE ENGINEER.CORPORATE CONSULTANT Work Phone: [facility] Comment on above: Renital dilation Start: 12-13-2021 ambulatory Arianna Ryand en LOCOMOTIVE ENGINEER.CORPORATE CONSULTANT Work Phone: [facility] Comment on above: Scripts Start: 12-10-2021 End: 12-10-2021 Patient encounter procedure Arianna Rosales LOCOMOTIVE ENGINEER.CORPORATE CONSULTANT Work Phone: [facility] Comment on above: Well adult exam (Yaneli cooper Dx); Special screening examination for viral disease; Obesity, Class II, BMI 35-39.9 Start: 12-10-2021 End: 12-10-2021 Patient encounter status Arianna Rosales LOCOMOTIVE ENGINEER.CORPORATE CONSULTANT Work Phone: [facility] Start: 11-11-2021 Telephone encounter Mike lester PA-C Work Phone: [facility] Comment on above: Future Appointment ( incoming referral through staff messages) Start: 06-14-2021 Preprocedural examin ation done Marianela Fowler CORPORATE CONSULTANT Work Phone: [facility] Start: 06-03-2021 End: 06-03-2021 ambulatory MARIANELA FOWLER [facility] Ambulatory Start: 06-03-2021 End: 06-03-2021 Office outpatient visit 25 minutes Marianela Fowler CORPORATE CONSULTANT Work Phone: [facility] Comment on above: Gastroesophageal ref lux disease, unspecified whether esophagitis present (Primary Dx); Fibromyalgia; Hypertension, unspecified type; Hyperlipidemia, unspecified hyperlipidemia type; Uncontrolled type 2 diabetes mellitus with hyperglycemia (HCC) Start: 03-06-2021 ambulatory MARIANELA FOWLER [facility] Ambulatory Start: 02-01-2021 End: 02-01-2021 ambulatory JR MAHMOOD [facility] Start: 02-01-2021 End: 02-05-2021 ambulatory MIGEL BROWNING [facility] Start: 02-01-2021 End: 02-01-2021 Office outpatient visit 40 minutes Migel Browning PA-C Work Phone: [facility] Comment on above: Fibromyalgia (Primar y Dx); Trigger point of neck; Degenerative disc disease, cervical; Status post cervical spinal fusion; Sacroiliac joint dysfunction of right side; Neuropathy Start: 01-26-2021 ambulatory NAOMI WILDE REECE [facility] Start: 01-16-2021 End: 01-16-2021 ambulatory FARHAD PALMER [facility] Start: 01-16-2021 End: 01-16-2021 Office outpatient visit 25 minutes Farhad Palmer PA-C Work Phone: [facility] Comment on above: Uncontrolled type 2 diabetes mellitus with hyperglycemia, with long-term current use of insulin (HCC) (Primary Dx) Start: 01-10-2021 End: 01-14-2021 ambulatory MARIANELA FOWLER [facility] Start: 01-03-2021 End: 01-03-2021 ambulatory MEKA CHURCHILL [facility] Start: 01-03-2021 End: 01-03-2021 ambulatory Erendira Kinney RN [facility] Start: 01-03-2021 End: 01-03-2021 Patient encounter procedure Meka Churchill MD Work Phone: [facility] Start: 01-02-2021 End: 01-02-2021 Refill Marianela Fowler CNP Work Phone: [facility] Comment on above: Fibromyalgia Start: 01-01-2021 End: 01-01-2021 ambulatory MIGEL BROWNING [facility] Start: 01-01-2021 End: 01-01-2021 Office outpatient visit 15 minutes Migel Browning PA-C Work Phone: [facility] Comment on above: Trigger point of nec k (Primary Dx); Fibromyalgia Start: 12-24-2020 End: 12-24-2020 Patient encounter procedure Sara Trinidad [facility] Comment on above: High Risk Care Manag ement (health curriculum coach) Start: 11-21-2020 End: 11-21-2020 ambulatory MARIANELA FOWLER [facility] Start: 11-21-2020 End: 11-21-2020 Office outpatient visit 25 minutes Marianela Lea Anil Work Phone: [facility] Comment on above: Chronic dental pain (Primary Dx); Gastroesophageal reflux disease, unspecified whether esophagitis present; Hypertension, unspecified type; Mixed hyperlipidemia; Fibromyalgia Start: 11-19-2020 End: 11-19-2020 Patient encounter procedure Kristie Vera [facility] Start: 11-06-2020 End: 11-10-2020 ambulatory MARIANELA FOWLER [facility] Start: 11-06-2020 End: 11-06-2020 Refill Naomi Reece Work Phone: [facility] Comment on above: Uncontrolled type 2 diabetes mellitus with hyperglycemia, with long-term current use of insulin (HCC) Intractable vomiting with nausea, unspecified vomiting type; Fibromyalgia; Anxiety; Chest pain of uncertain etiology; Hyperlipidemia, unspecified hyperlipidemia type Start: 11-06-2020 End: 11-06-2020 Phys/qhp telephone evaluation 21-30 min Marianela Lea Anil Work Phone: [facility] Comment on above: Pulmonary nodule Start: 11-02-2020 End: 11-02-2020 Patient encounter procedure Kristie Vera [facility] Comment on above: crm coordinator (Init ial outreach) Start: 11-01-2020 End: 11-02-2020 Emergency department patient visit MARIANELA FOWLER [facility] Start: 11-01-2020 End: 11-02-2020 Emergency department patient visit Gayle Maravilla Work Phone: [facility] Emergency Department Comment on above: Pneumonia due to COV ID-19 virus (Primary Dx); Acute UTI; Hyperglycemia Start: 10-09-2020 End: 10-13-2020 ambulatory BABAKED CANO [facility] Start: 10-03-2020 End: 10-04-2020 ambulatory MARIANELA LEA [facility] Start: 10-03-2020 End: 10-03-2020 ambulatory MIGEL BROWNING [facility] Start: 10-03-2020 End: 10-03-2020 Subsequent hospital visit by physician Migel Browning Work Phone: [facility] Comment on above: Degenerative disc di sease, cervical; Status post cervical spinal fusion Start: 09-30-2020 End: 09-30-2020 Emergency department patient visit BRIANDMITRY GARCIA [facility] Start: 09-30-2020 End: 09-30-2020 Emergency department patient visit Brian Whitt [facility] Work Phone: [facility] Emergency Department Comment on above: Odontalgia (Primary Dx) Start: 09-10-2020 [facility] above: Community Resource L inkage (Follow up call from initial encounter 09-03-2020) Start: 09-10-2020 End: 09-10-2020 Patient encounter procedure Nidia Stover [facility] Start: 09-03-2020 End: 09-03-2020 Patient encounter procedure Nidia [facility] Comment on above: Community Resource L inkage (Utility assistance) Start: 08-23-2020 End: 08-23-2020 Documentation procedure Francisco Stokes Work Phone: [facility] Start: 08-22-2020 End: 08-22-2020 ambulatory MARIANELA FOWLER [facility] Start: 08-22-2020 End: 08-22-2020 Office outpatient visit 25 minutes Marianela Fowler Work Phone: [facility] Comment on above: Herniated interverte bral disc of lumbar spine (Primary Dx); Hypertension, unspecified type; Fibromyalgia; S/P cervical spinal fusion Start: 07-24-2020 End: 07-24-2020 ambulatory MIGEL BROWNING [facility] Start: 07-09-2020 End: 07-09-2020 ambulatory GARIMA COMBS [facility] Start: 07-07-2020 End: 07-11-2020 ambulatory MARIANELA FOWLER [facility] Start: 07-03-2020 End: 07-03-2020 Home visit Francisco Augustine [facility] Comment on above: CASE COMMUNICATION Start: 06-26-2020 End: 06-26-2020 ambulatory MIGEL BROWNING [facility] Start: 06-26-2020 End: 06-26-2020 Postop follow up visit related to original px Migel Browning Work Phone: [facility] Comment on above: Acute post-operative pain (Primary Dx); Degenerative disc disease, cervical; Chronic neck pain Start: 06-26-2020 End: 06-26-2020 Home visit [facility] Comment on above: STOCK CONTROL CLERK HH ROUTINE Start: 06-25-2020 End: 06-25-2020 Home visit Michelle Niño [facility] Comment on above: OT NON-OASIS/DISCIPL INE DISCHARGE Start: 06-22-2020 End: 06-22-2020 Home visit Jimbo Love [facility] Comment on above: SALES REPRESENTATIVE UNIFORMS ROUTINE VISIT DEJESUS ROUTINE VISIT Start: 06-21-2020 End: 06-21-2020 Home visit [facility] Comment on above: STOCK CONTROL CLERK HH ROUTINE Start: 06-19-2020 End: 06-19-2020 Home visit [facility] Comment on above: STOCK CONTROL CLERK ROUTINE DEJESUS ROUTINE VISIT SALES REPRESENTATIVE UNIFORMS ROUTINE VISIT Start: 06-19-2020 End: 06-19-2020 Subsequent hospital visit by physician Marianela Fowler Work Phone: [facility] Services PET Comment on above: Arrived Start: 06-15-2020 End: 06-15-2020 Home visit Michelle Niño [facility] Comment on above: OT INITIAL EVALUATIO N PT INITIAL EVALUATIO N Start: 06-14-2020 End: 06-14-2020 Home visit Michelle Niño [facility] Comment on above: CASE COMMUNICATION SN HH ROUTINE VISIT Start: 06-13-2020 End: 06-13-2020 Patient encounter procedure Kristie Vera [facility] Comment on above: Chronic Care Managem ent (PEDRO ) Start: 06-12-2020 End: 06-12-2020 Home visit Greg Valentine [facility] Comment on above: SN HH OASIS START OF CARE Start: 06-12-2020 End: 06-12-2020 Patient encounter procedure Kristie Vera [facility] Comment on above: Chronic Care Managem ent (PEDRO outreach #1) Start: 06-11-2020 End: 07-05-2020 Patient encounter procedure MARIANELA FOWLER [facility] Start: 06-07-2020 End: 06-11-2020 Evaluation and management of inpatient Jose Gallagher Work Phone: [facility] Intermediate Comment on above: S/P cervical spinal fusion (Primary Dx); Degenerative disc disease, cervical; Lumbar degenerative disc disease; Herniated intervertebral disc of lumbar spine; Spinal stenosis of lumbar region without neurogenic claudication; Uncontrolled type 2 diabetes mellitus with hyperglycemia, with long-term current use of insulin (HCC); Neuropathy involving both lower extremities; Type 2 diabetes mellitus without complication, with long-term current use of insulin (HCC); H/O spinal fusion; Essential hypertension; Hyperlipidemia, unspecified hyperlipidemia type; Fibromyalgia; Class 3 severe obesity with serious comorbidity and body mass index (BMI) of 45.0 to 49.9 in adult, unspecified obesity type (HCC); Gastroesophageal reflux disease, esophagitis presence not specified; Chronic neck pain; Chronic thoracic spine pain; Chronic bilateral low back pain, unspecified whether sciatica present; Anxiety and depression; Intractable vomiting with nausea, unspecified vomiting type; Anxiety; Pulmonary nodule, left; Preoperative examination, unspecified Start: 06-06-2020 End: 06-06-2020 Subsequent hospital visit by physician Marianela Fowler Work Phone: [facility] PET Comment on above: Pulmonary nodule, le ft Start: 06-05-2020 ambulatory ROSITA BONILLA [facility] Ambulatory Start: 06-04-2020 End: 06-04-2020 Patient encounter procedure MIGEL BROWNING [facility] Start: 05-30-2020 Preprocedural examin ation done Marianela Fowler [facility] Work Phone: [facility] Work Phone: Start: 05-22-2020 End: 05-22-2020 Office outpatient visit 25 minutes Marianela Fowler Work Phone: [facility] Comment on above: Pulmonary nodule, le ft (Primary Dx); Essential hypertension; Anxiety and depression Start: 05-18-2020 End: 05-19-2020 Patient encounter procedure MARIANELA FOWLER [facility] Start: 05-18-2020 End: 05-18-2020 Subsequent hospital visit by physician Marianela Fowler Work Phone: [facility] Comment on above: Pulmonary nodule Start: 04-27-2020 End: 04-27-2020 Subsequent hospital visit by physician Migel Browning Work Phone: [facility] Diagnostics Comment on above: Arrived Start: 04-27-2020 End: 05-22-2020 Preprocedural examination done Marianela Fowler CNP Work Phone: [facility] Start: 04-27-2020 End: 04-27-2020 Patient encounter procedure MIGEL BROWNING [facility] Start: 04-18-2020 End: 04-18-2020 Office outpatient visit 15 minutes Jose Gallagher Work Phone: [facility] Comment on above: Neck pain (Primary D x) Start: 03-29-2020 End: 03-29-2020 Office outpatient visit 15 minutes Marianela Fowler Work Phone: [facility] Comment on above: Essential hypertensi on (Primary Dx); Depression with anxiety Start: 03-13-2020 End: 03-13-2020 Office outpatient new 30 minutes Kary Lennon Work Phone: [facility] Comment on above: Primary osteoarthrit is of both knees (Primary Dx) Start: 03-08-2020 End: 03-08-2020 Subsequent hospital visit by physician Migel Browning Work Phone: [facility] MRI Comment on above: Chronic neck pain Chronic bilateral lo w back pain, unspecified whether sciatica present Start: 03-08-2020 End: 03-08-2020 Office outpatient visit 25 minutes aBbak Cano Work Phone: [facility] Comment on above: Uncontrolled type 2 diabetes mellitus with hyperglycemia, with long-term current use of insulin (HCC) (Primary Dx); Type 2 diabetes mellitus without complication, with long-term current use of insulin (HCC); Essential hypertension; Hyperlipidemia, unspecified hyperlipidemia type Start: 02-29-2020 End: 02-29-2020 Office outpatient visit 25 minutes Marianela Fowler Work Phone: [facility] Comment on above: Essential hypertensi on (Primary Dx); Anxiety; Yeast infection of the skin Start: 02-01-2020 End: 02-01-2020 Patient encounter procedure Keven Alanis Work Phone: [facility] Comment on above: Diabetic polyneuropa thy associated with type 2 diabetes mellitus (HCC) (Primary Dx); Ulnar neuropathy at elbow, left Start: 01-31-2020 End: 01-31-2020 Patient encounter procedure Keven Alanis Work Phone: [facility] Comment on above: Uncontrolled diabete s mellitus with diabetic neuropathy (HCC) Start: 01-27-2020 End: 01-27-2020 Subsequent hospital visit by physician Nancy Shanks Work Phone: [facility] Mammography Comment on above: History of fibrocyst ic disease of breast; Screening mammogram, encounter for Start: 01-13-2020 Follow-up encounter Willowmati Deutsch [facility] Comment on above: ED Follow-up Start: 01-13-2020 End: 01-13-2020 Patient encounter procedure Willow Deutsch [facility] Start: 01-12-2020 End: 01-12-2020 Emergency department patient visit Carl Perez Work Phone: [facility] Emergency Department Comment on above: Acute UTI (Primary D x); Lightheaded Start: 12-05-2019 End: 12-05-2019 Patient encounter procedure Garima Combs Work Phone: [facility] Comment on above: Uncontrolled type 2 diabetes mellitus with hyperglycemia, with long-term current use of insulin (HCC) (Primary Dx); Hypertension, unspecified type; Hyperlipidemia, unspecified hyperlipidemia type; Neuropathy involving both lower extremities Start: 11-30-2019 End: 11-30-2019 Patient encounter procedure Migel Browning Work Phone: [facility] Comment on above: Chronic thoracic spi ne pain; Chronic bilateral low back pain, unspecified whether sciatica present; Chronic neck pain Start: 11-23-2019 End: 11-23-2019 Patient encounter procedure Migel Browning Work Phone: [facility] Comment on above: Chronic thoracic spi ne pain; Chronic neck pain; Chronic bilateral low back pain, unspecified whether sciatica present Start: 11-21-2019 End: 11-21-2019 Office outpatient visit 15 minutes Marianela Fowler Work Phone: [facility] Comment on above: Hypertension, unspec ified type (Primary Dx); Neuropathy involving both lower extremities Start: 11-14-2019 End: 11-14-2019 Patient encounter procedure Migel Browning Work Phone: [facility] Comment on above: Arrived Start: 11-04-2019 End: 11-04-2019 Patient encounter procedure Migel Browning Work Phone: [facility] Comment on above: Chronic thoracic spi ne pain; Chronic neck pain Start: 11-03-2019 End: 11-03-2019 Office outpatient visit 25 minutes Marianela Fowler Work Phone: [facility] Comment on above: Gastroesophageal ref lux disease, esophagitis presence not specified (Primary Dx); Hypertension, unspecified type; Hyperlipidemia, unspecified hyperlipidemia type; Class 3 severe obesity with serious comorbidity and body mass index (BMI) of 45.0 to 49.9 in adult, unspecified obesity type (HCC); Depression with anxiety Start: 11-02-2019 End: 11-02-2019 Patient encounter procedure Migel Browning Work Phone: [facility] Comment on above: Chronic neck pain; Chronic thoracic spine pain; Chronic bilateral low back pain, unspecified whether sciatica present Start: 10-10-2019 End: 10-10-2019 Office outpatient new 60 minutes Migel Browning Work Phone: [facility] Comment on above: Chronic bilateral lo w back pain, unspecified whether sciatica present (Primary Dx); Chronic neck pain; Chronic thoracic spine pain Start: 10-04-2019 End: 10-04-2019 Patient encounter procedure Patricia Abdi [facility] Comment on above: Nutrition Counseling ([facility] health curriculum coach referral ) Start: 10-03-2019 End: 10-03-2019 Patient encounter procedure Patricia Abdi [facility] Comment on above: Nutrition Counseling ([facility] health curriculum coach referral ) Start: 09-26-2019 End: 09-26-2019 Patient encounter procedure Patricia Abdi [facility] Comment on above: Nutrition Counseling ([facility] health curriculum coach referral ) Start: 08-30-2019 End: 08-30-2019 Patient encounter procedure Patricia Abdi [facility] Comment on above: Nutrition Counseling ([facility] health curriculum coach referral) Start: 08-29-2019 End: 08-29-2019 Patient encounter procedure Patricia Abdi [facility] Comment on above: Nutrition Counseling ([facility] health curriculum coach referral ) Start: 08-22-2019 End: 08-22-2019 Office outpatient visit 25 minutes Marianela Fowler Work Phone: [facility] Comment on above: Chronic neck pain (P rimary Dx); Fibromyalgia; Hypertension, unspecified type; Gastroesophageal reflux disease, esophagitis presence not specified Start: 08-09-2019 End: 08-09-2019 Documentation procedure Carolee Aguirre [facility] Comment on above: ED Follow-up Start: 08-09-2019 End: 08-09-2019 Patient encounter procedure Patricia Abdi [facility] Comment on above: Nutrition Counseling ([facility] health curriculum coach referral) Start: 08-08-2019 End: 08-08-2019 Patient encounter procedure Patricia Abdi [facility] Comment on above: Nutrition Counseling ([facility] health curriculum coach referral ) Start: 08-08-2019 End: 08-08-2019 Emergency department patient visit Misael Hardin Work Phone: [facility] Comment on above: Pain, dental (Primar y Dx); Gum disease Start: 08-05-2019 End: 08-05-2019 Patient encounter procedure Patricia Abdi [facility] Comment on above: Nutrition Counseling ([facility] health curriculum coach referral) Start: 08-05-2019 End: 08-05-2019 Office outpatient visit 15 minutes Farhad Palmer Work Phone: [facility] Comment on above: Uncontrolled type 2 diabetes mellitus with hyperglycemia, with long-term current use of insulin (HCC) (Primary Dx) Start: 08-03-2019 End: 08-03-2019 Coordination of care plan Patricia Abdi [facility] Start: 08-01-2019 End: 08-01-2019 Patient encounter procedure Patricia Abdi [facility] Comment on above: Nutrition Counseling ([facility] curriculum coach referral) Start: 07-21-2019 End: 07-21-2019 Patient encounter procedure Patricia Abdi [facility] Comment on above: Nutrition Counseling ([facility] health curriculum coach referral) Start: 07-18-2019 End: 07-18-2019 Patient encounter procedure Patricia Abdi [facility] Comment on above: Nutrition Counseling ([facility] [place] curriculum coach referral) Start: 07-14-2019 End: 07-14-2019 Patient encounter procedure Kristie Vera [facility] Comment on above: Chronic Care Managem ent (DM) Start: 05-17-2019 Follow-up encounter Caroleeakua Aguirre [facility] Comment on above: ED Follow-up Start: 05-17-2019 End: 05-17-2019 Patient encounter procedure Carolee Aguirre [facility] Start: 05-16-2019 End: 05-16-2019 Emergency department patient visit Steven Hallahsan Work Phone: [facility] Emergency Department Comment on above: Pain in both lower e xtremities (Primary Dx) Start: 05-11-2019 End: 05-11-2019 Office outpatient visit 15 minutes Kary Lennon Work Phone: [facility] Comment on above: Spinal stenosis of l umbar region without neurogenic claudication (Primary Dx) Start: 05-05-2019 End: 05-05-2019 Office outpatient visit 25 minutes Marianela Fowler Work Phone: [facility] Comment on above: Hypertension, unspec ified type (Primary Dx); Hyperlipidemia, unspecified hyperlipidemia type; Class 3 severe obesity with serious comorbidity and body mass index (BMI) of 45.0 to 49.9 in adult, unspecified obesity type (HCC); Gastroesophageal reflux disease, esophagitis presence not specified Start: 04-29-2019 End: 04-29-2019 Office outpatient visit 15 minutes Garima Combs Work Phone: [facility] Comment on above: Uncontrolled type 2 diabetes mellitus with hyperglycemia, with long-term current use of insulin (HCC) (Primary Dx); Hypertension, unspecified type; Hyperlipidemia, unspecified hyperlipidemia type; Neuropathy involving both lower extremities Start: 04-20-2019 End: 04-20-2019 Documentation procedure Carolee Aguirre [facility] Comment on above: ED Follow-up Start: 04-19-2019 End: 04-19-2019 Emergency department patient visit Charles Buckley Work Phone: [facility] Comment on above: Periumbilical abdomi nal pain (Primary Dx); Hypokalemia Start: 04-18-2019 Follow-up encounter Kristie Vera [facility] Comment on above: Diabetes; Follow-up Start: 04-18-2019 End: 04-18-2019 Patient encounter procedure Kristie Vera [facility] Start: 03-23-2019 End: 03-23-2019 Patient encounter procedure Kristie Norwood Chuy [facility] Comment on above: Diabetes; Chronic Ca re Management Start: 02-27-2019 End: 02-27-2019 Emergency department patient visit Daveyjuliette Palmer Elba Work Phone: [facility] Comment on above: Chronic bilateral lo w back pain without sciatica (Primary Dx); Contusion of right foot, initial encounter Start: 02-17-2019 End: 02-17-2019 Patient encounter procedure Kristie Norwood Chuy [facility] Comment on above: Chronic Care Managem ent; Diabetes; Community Resource Linkage Start: 02-14-2019 End: 02-14-2019 Patient encounter procedure Kristie Vera [facility] Comment on above: Chronic Care Managem ent; Diabetes Start: 02-10-2019 End: 02-10-2019 Patient encounter procedure Kristiejanna Vera [facility] Comment on above: Chronic Care Managem ent; Diabetes Start: 01-31-2019 End: 01-31-2019 Patient encounter procedure Sravanthi Bansal [facility] Comment on above: Spinal stenosis of l umbar region without neurogenic claudication (Primary Dx) Start: 01-28-2019 End: 01-28-2019 Documentation procedure Niesha Mullins [facility] Start: 01-26-2019 End: 01-26-2019 Office outpatient visit 10 minutes Kary Lennon Work Phone: [facility] Comment on above: Fibromyalgia (Primar y Dx); Herniated intervertebral disc of lumbar spine; Spinal stenosis of lumbar region without neurogenic claudication; H/O spinal fusion Start: 01-14-2019 End: 01-14-2019 Patient encounter procedure Marianela Fowler Work Phone: [facility] Comment on above: H/O spinal fusion Start: 01-13-2019 End: 01-13-2019 Patient encounter procedure Marianela Fowler Work Phone: [facility] Comment on above: H/O spinal fusion Start: 01-11-2019 End: 01-11-2019 Patient encounter procedure Kary Lennon Work Phone: [facility] Comment on above: H/O spinal fusion Start: 01-05-2019 End: 01-05-2019 Patient encounter procedure Kary Lennon Work Phone: [facility] Comment on above: H/O spinal fusion Start: 01-04-2019 End: 01-04-2019 Patient encounter procedure Kristie Enma Vera [facility] Comment on above: Diabetes; Chronic Ca re Management; Fibromyalgia (Pt. concerns) Start: 12-31-2018 End: 12-31-2018 Patient encounter procedure Kary Lennon Work Phone: [facility] Comment on above: H/O spinal fusion Start: 12-29-2018 End: 12-29-2018 Patient encounter procedure Kary Lennon Work Phone: [facility] Comment on above: H/O spinal fusion Start: 12-28-2018 End: 12-28-2018 Office outpatient visit 25 minutes Meka Aggarwal Work Phone: [facility] Comment on above: Uncontrolled type 2 diabetes mellitus with hyperglycemia, with long-term current use of insulin (HCC) (Primary Dx); Hypertension, unspecified type; Hyperlipidemia, unspecified hyperlipidemia type Start: 12-22-2018 End: 12-22-2018 Patient encounter procedure Kary De Leónalberta Work Phone: [facility] Comment on above: H/O spinal fusion Start: 12-17-2018 End: 12-17-2018 Patient encounter procedure Kary De Leónalberta Work Phone: [facility] Comment on above: H/O spinal fusion Start: 12-17-2018 End: 12-17-2018 Patient encounter procedure Linh Quintanilla Bi Work Phone: [facility] Comment on above: Pain Start: 12-17-2018 End: 12-17-2018 Office outpatient visit 15 minutes Linh Alvaradojudson Work Phone: [facility] Comment on above: Degenerative disc di sease, cervical (Primary Dx) Start: 12-14-2018 End: 12-14-2018 Office outpatient visit 15 minutes Nancy Shanks Work Phone: [facility] Comment on above: History of fibrocyst ic disease of breast (Primary Dx); Screening mammogram, encounter for Start: 12-10-2018 End: 12-10-2018 Patient encounter procedure Marianela Fowler Work Phone: [facility] Comment on above: H/O spinal fusion Start: 12-09-2018 End: 12-10-2018 Emergency department patient visit Tatum Hammer Work Phone: [facility] Comment on above: Back strain, initial encounter (Primary Dx) Start: 12-07-2018 End: 12-07-2018 Patient encounter procedure Marianela Fowler Work Phone: [facility] Comment on above: H/O spinal fusion Start: 12-03-2018 End: 12-03-2018 Patient encounter procedure Marianela Fowler Work Phone: [facility] Comment on above: H/O spinal fusion Start: 11-23-2018 End: 11-23-2018 Patient encounter procedure Kary Lennon Work Phone: [facility] Comment on above: S/P lumbar spinal fu carloz; Lumbar degenerative disc disease Start: 11-10-2018 End: 11-10-2018 Patient encounter procedure Kary Lennon Work Phone: [facility] Start: 11-10-2018 End: 11-10-2018 Office outpatient visit 15 minutes Kary Lennon Work Phone: [facility] Comment on above: Lumbar degenerative disc disease (Primary Dx); Herniated intervertebral disc of lumbar spine; Spinal stenosis of lumbar region without neurogenic claudication Start: 11-04-2018 End: 11-04-2018 Office outpatient visit 25 minutes Marianela Fowler Work Phone: [facility] Comment on above: Encounter for hepati tis C screening test for low risk patient (Primary Dx); Immunization due; Hyperlipidemia, unspecified hyperlipidemia type; Fibromyalgia; Uncontrolled type 2 diabetes mellitus with hyperglycemia, with long-term current use of insulin (HCC); Hypertension, unspecified type; Chest pain of uncertain etiology Start: 09-13-2018 Patient encounter procedure Nancy Shanks Facility:[place] Start: 08-23-2018 End: 08-23-2018 Office outpatient visit 25 minutes Naomi Reece Work Phone: [facility] Comment on above: Type 2 diabetes jenny itus with diabetic polyneuropathy, with long-term current use of insulin (HCC) (Primary Dx); Hypercholesterolemia; Essential hypertension Start: 08-23-2018 Patient encounter procedure Naomi Reece Facility:[place] Start: 08-04-2018 Patient encounter procedure Kary Lennon Facility:[place] Start: 08-04-2018 End: 08-04-2018 Postop follow up visit related to original px Kary Lennon Work Phone: [facility] Comment on above: S/P lumbar spinal fu carloz (Primary Dx) Start: 08-03-2018 Patient encounter procedure Naomi Reece Facility:[place] Start: 07-22-2018 End: 07-22-2018 Patient encounter Kristie Vera [facility] Comment on above: Chronic Care Managem ent (follow up) Start: 07-20-2018 End: 07-20-2018 Office outpatient new 45 minutes Naomi Reece Work Phone: [facility] Comment on above: Type 2 diabetes jenny itus with diabetic polyneuropathy, with long-term current use of insulin (HCC) (Primary Dx); Hypercholesterolemia; Essential hypertension; Neuropathy involving both lower extremities; Uncontrolled type 2 diabetes mellitus with hyperglycemia, with long-term current use of insulin (HCC) Start: 06-22-2018 Patient encounter procedure Kary Lennon Facility:[place] Start: 06-22-2018 End: 06-22-2018 Patient encounter Kary Lennon Work Phone: [facility] Start: 06-22-2018 End: 06-22-2018 Postop follow up visit related to original px Kary Lennon Work Phone: [facility] Comment on above: Lumbar degenerative disc disease (Primary Dx); H/O spinal fusion Start: 06-21-2018 End: 06-22-2018 Patient encounter procedure Jasper Stahl Facility:[place] Start: 06-03-2018 End: 06-04-2018 Patient encounter procedure Jasper Stahl Facility:[place] Start: 05-26-2018 End: 05-26-2018 Postop follow up visit related to original px Kary Lennon Work Phone: [facility] Comment on above: H/O spinal fusion (P rimary Dx) Start: 05-20-2018 Patient encounter procedure Linh Pat Facility:[place] Start: 05-20-2018 End: 05-20-2018 Patient encounter Linh Pat Work Phone: [facility] Start: 05-20-2018 End: 05-20-2018 Postop follow up visit related to original px Linh Pat Work Phone: [facility] Comment on above: S/P spinal fusion (P rimary Dx) Start: 05-19-2018 End: 05-20-2018 Emergency department patient visit Davey Palmer [place] Facility:[place] Start: 05-10-2018 End: 05-13-2018 Evaluation and management of inpatient Linh Pat Facility:[place] Start: 05-05-2018 Patient encounter procedure Scott Espinosa Facility:[place] Start: 05-05-2018 End: 05-05-2018 Office outpatient visit 15 minutes Meka Price Work Phone: [facility] Start: 04-19-2018 Patient encounter procedure Linh Pat Facility:[place] Start: 04-19-2018 End: 04-19-2018 Patient encounter Linh Pat Work Phone: [facility] Start: 03-26-2018 Patient encounter procedure Linh Pat Facility:[place] Start: 03-26-2018 End: 03-26-2018 Office outpatient visit 15 minutes Linh Pat Work Phone: [facility] Start: 03-13-2018 Patient encounter procedure Linh Pat Facility:[place] Start: 03-13-2018 End: 03-13-2018 Ambulatory Linh Pat Work Phone: [facility] Start: 03-12-2018 Patient encounter procedure Nancy Shanks Facility:[place] Start: 03-12-2018 End: 03-12-2018 Ambulatory Nancy Shanks Work Phone: [facility] Start: 03-02-2018 Ambulatory Era Joyner [facility] Start: 02-24-2018 End: 02-24-2018 Office outpatient visit 25 minutes Scott Espinosa Work Phone: [facility] Start: 02-09-2018 Boris Crowleya Adrian joanne WHALEY Work Phone: [facility] Start: 02-05-2018 Patient encounter procedure Linh Pat Facility:[place] Start: 02-02-2018 Ambulatory Era Joyner [facility] Start: 02-02-2018 End: 02-02-2018 Office/outpatient visit, est, level 3 Linh Pat Work Phone: [facility] Start: 01-18-2018 Ambulatory Kristie Vera [facility] Start: 01-14-2018 Ambulatory Kristie Vera [facility] Start: 01-13-2018 End: 01-13-2018 Office/outpatient visit, est, level 3 Linh Alvaradojudson Work Phone: [facility] Start: 01-01-2018 End: 01-01-2018 Ambulatory Linh Pat Work Phone: [facility] Start: 12-30-2017 End: 12-30-2017 Ambulatory Keven Gonzalez Jason Work Phone: [facility] Start: 12-21-2017 Follow-up encounter Kristie Vera [facility] Start: 12-16-2017 Follow-up encounter Kristie Vera [facility] Start: 12-15-2017 Follow-up encounter Kristie Vera [facility] Start: 12-13-2017 End: 12-14-2017 Patient encounter procedure Jasper Stahl Facility:[place] Start: 12-09-2017 Patient encounter procedure Scott Espinosa Facility:[place] Start: 12-07-2017 Ambulatory Kristie Vera [facility] Start: 12-06-2017 End: 12-07-2017 Patient encounter procedure Jasper Stahl Facility:[place] Start: 12-04-2017 Patient encounter Kristie Vera [facility] Start: 12-02-2017 Ambulatory Kristie Vera [facility] Start: 12-02-2017 Postop follow-up visit Linh Pat Work Phone: [facility] Start: 12-01-2017 Ambulatory Kristie Vera [facility] Start: 11-25-2017 Patient encounter procedure Natalie Payne Facility:[place] Start: 11-20-2017 Ambulatory Kristie Vera [facility] Start: 11-18-2017 End: 11-18-2017 Patient encounter procedure Alexwilli Quijano Facility:[place] Start: 11-17-2017 End: 11-17-2017 Ambulatory Ada Gil Work Phone: [facility] Start: 11-04-2017 Postop follow-up visit Linh Pat Work Phone: [facility] Start: 10-29-2017 Ambulatory SCOTT A [facility] Start: 10-19-2017 End: 10-20-2017 Patient encounter procedure Linh Pat Facility:[place] Start: 10-16-2017 Office consultation Linh Pat Work Phone: [facility] Start: 10-15-2017 Office/outpatient vi sit, est, level 2 Nancy Shanks Work Phone: [facility] Start: 10-15-2017 Patient encounter procedure Linh Pat Facility:[place] Start: 10-15-2017 End: 10-15-2017 Ambulatory Linh Pat Work Phone: [facility] Start: 10-12-2017 Patient encounter procedure Nancy Shanks Facility:[place] Start: 10-12-2017 End: 10-12-2017 Ambulatory Nancy Shanks Work Phone: [facility] Start: 10-09-2017 Office/outpatient vi sit, new, level 4 Nancy Shanks Work Phone: [facility] Start: 10-08-2017 Office/outpatient vi sit, est, level 3 Linh Pat Work Phone: [facility] Start: 10-07-2017 Patient encounter procedure Scott Espinosa Facility:[place] Start: 10-07-2017 End: 10-07-2017 Ambulatory Scott Espinosa Work Phone: [facility] Start: 10-06-2017 Patient encounter procedure Linh Pat Facility:[place] Start: 10-06-2017 End: 10-06-2017 Ambulatory Linh Pat Work Phone: [facility] Start: 10-01-2017 Patient encounter procedure Marianela Fowler Facility:[place] Start: 10-01-2017 End: 10-01-2017 Ambulatory Marianela Fowler Work Phone: [facility] Start: 09-29-2017 End: 09-29-2017 Emergency department patient visit SC[facility] FRANCISCA [facility] Start: 09-10-2017 Office/outpatient vi sit, est, level 3 Linh Pat Work Phone: [facility] Start: 09-10-2017 End: 09-10-2017 Ambulatory Scott Espinosa Work Phone: [facility] Start: 07-02-2017 End: 07-02-2017 Office outpatient new 30 minutes Scott Espinosa Work Phone: [facility] Comment on above: Lumbar degenerative disc disease (Primary Dx);Thoracic back pain, unspecified back pain laterality, unspecified chronicity Start: 06-18-2017 End: 06-18-2017 Patient encounter procedure Scott Espinosa Work Phone: [facility] Start: 05-28-2017 End: 05-28-2017 Ambulatory Scott Espinosa Work Phone: [facility] Start: 05-01-2017 End: 05-01-2017 Patient encounter procedure Scott Espinosa Work Phone: [facility] Start: 04-28-2017 End: 04-28-2017 Patient encounter procedure Scott Espinosa Work Phone: [facility] Start: 04-28-2017 End: 04-28-2017 Patient encounter procedure Scott Espinosa Work Phone: [facility] Start: 04-20-2017 Office/outpatient vi sit, new, level 4 Scott Espinosa Work Phone: [facility] Start: 04-12-2017 End: 04-12-2017 Emergency department patient visit [facility] Procedures Date Procedure Procedure Detail Performing Clinician Start: 02-28-2025 Hemoglobin A1c/Hemoglobin.total in Blood Arianna Rosales LOCOMOTIVE ENGINEER.CORPORATE CONSULTANT Work Phone: Start: 01-03-2025 Screening digital breast tomosynthesis bi Arianna Rosales LOCOMOTIVE ENGINEER.CORPORATE CONSULTANT Work Phone: Start: 12-30-2023 Hemoglobin A1c/Hemoglobin.total in Blood [facility] Provider Start: 07-15-2023 Hemoglobin A1c/Hemoglobin.total in Blood [facility] Provider Start: 06-13-2023 Hemoglobin A1c/Hemoglobin.total in Blood [facility] Provider Start: 04-16-2023 End: 04-16-2023 Mammography Scott Yepez DO Work Phone: Start: 03-23-2023 Hemoglobin A1c/Hemoglobin.total in Blood Arianna Rosales LOCOMOTIVE ENGINEER.CORPORATE CONSULTANT Work Phone: Start: 03-09-2023 Polysomnogram Arianna Rosales APRN.CORPORATE CONSULTANT Work Phone: Start: 12-22-2022 [employer] COVID-19 BIVALENT BOOSTER VACCINE, AGE 12+ YR Arianna Rosales LOCOMOTIVE ENGINEER.CORPORATE CONSULTANT Work Phone: Start: 03-10-2022 Ct thorax w/o contrast material Arianna Rosales LOCOMOTIVE ENGINEER.CORPORATE CONSULTANT Work Phone: Start: 12-31-2021 End: 12-31-2021 Screening mammography bi 2-view breast inc cad Arianna Rosales LOCOMOTIVE ENGINEER.CORPORATE CONSULTANT Work Phone: Start: 11-11-2021 Adult depression screening assessment Mike Pierson PA-C Work Phone: Start: 05-05-2021 3 comp foot exam completed Farhad wilde PA-C Work Phone: Start: 01-01-2021 Injection 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/loader helper 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 point 1/2 muscles Migel Browning PA-C Work Phone: Start: 11-01-2020 Urinalysis Gayle Maravilla Work Phone: Start: 11-01-2020 Radiologic exam chest single view Gayle Maravilla Work Phone: Start: 11-01-2020 Blood count hemoglobin Gayle Andrea Cochran son Work Phone: Start: 11-01-2020 Basic metabolic 1998 panel - Serum or Plasma Gayle Maravilla Work Phone: Start: 11-01-2020 Complete blood count with white cell differential, automated Gayle Maravilla Work Phone: Start: 11-01-2020 Complete blood count with white cell differential, manual Gayle Maravilla Work Phone: Start: 11-01-2020 Hepatic function 2000 panel - Serum or Plasma Gayle Maravilla Work Phone: Start: 11-01-2020 Natriuretic peptide.B prohormone N-Terminal [Mass/volume] in Serum or Plasma Gayle Maravilla Work Phone: Start: 11-01-2020 OBTAIN VENOUS BLOOD GASES AND PERFORM Gayle Maravilla Work Phone: Start: 11-01-2020 Troponin measurement Gayle Mcguire n Work Phone: Start: 11-01-2020 12 lead ECG Gayle Maravilla Work Phone: Start: 11-01-2020 COVID-19/INFLUENZA A,B MOLECULAR Gayle Maravilla Work Phone: Start: 10-09-2020 3 comp foot exam completed Gayle Maravilla Start: 10-03-2020 Radex spine cervical 6 or more views Migel Browning Work Phone: Start: 07-09-2020 3 comp foot exam completed Francisco Augustine Start: 07-07-2020 Microalbumin [Mass/volume] in Urine by Test strip Francisco Augustine Start: 06-19-[address] attenuation skull base mid-thigh Marianela Fowler Work Phone: Start: 06-19-2020 Glucose [Mass/volume] in Blood Marianela Fowler Work Phone: Start: 06-11-2020 Glucose [Mass/volume] in Blood Dioshruthios Klironomos Work Phone: Start: 06-11-2020 Glucose [Mass/volume] in Blood Dionysios Klironomos Work Phone: Start: 06-10-2020 Glucose [Mass/volume] in Blood Dionysios Klironomos Work Phone: Start: 06-10-2020 Glucose [Mass/volume] in Blood Dionysios Klironomos Work Phone: Start: 06-10-2020 Glucose [Mass/volume] in Blood Dionysios Klironomos Work Phone: Start: 06-10-2020 Glucose [Mass/volume] in Blood Dionysios Klironomos Work Phone: Start: 06-10-2020 Glucose [Mass/volume] in Blood Dionysios Klironomos Work Phone: Start: 06-09-2020 Glucose [Mass/volume] in Blood Dionysios Klironomos Work Phone: Start: 06-09-2020 Glucose [Mass/volume] in Blood Dionysios Klironomos Work Phone: Start: 06-09-2020 Glucose [Mass/volume] in Blood Dionysios Klironomos Work Phone: Start: 06-09-2020 Glucose [Mass/volume] in Blood Dionysios Klironomos Work Phone: Start: 06-09-2020 Glucose [Mass/volume] in Blood Dionysios Klironomos Work Phone: Start: 06-08-2020 Glucose [Mass/volume] in Blood Jose Alcantars Work Phone: Start: 06-08-2020 Glucose [Mass/volume] in Blood Jose Alcantars Work Phone: Start: 06-08-2020 End: 06-08-2020 Glucose [Mass/volume] in Blood Jose Alcantars Work Phone: Start: 06-08-2020 Glucose [Mass/volume] in Blood Jose Alcantars Work Phone: Start: 06-08-2020 Glucose [Mass/volume] in Blood Jose Alcantars Work Phone: Start: 06-08-2020 Basic metabolic 2000 panel - Serum or Plasma Jose Gallagher Work Phone: Start: 06-08-2020 Complete blood count (hemogram) panel - Blood by Automated count Jose Gallagher Work Phone: Start: 06-08-2020 Glucose [Mass/volume] in Blood Jose Alcantars Work Phone: Start: 06-07-2020 Glucose [Mass/volume] in Blood Jose Alcantars Work Phone: Start: 06-07-2020 Glucose [Mass/volume] in Blood Jose Alcantars Work Phone: Start: 06-07-2020 Glucose [Mass/volume] in Blood Jose Alcantars Work Phone: Start: 06-07-2020 Glucose [Mass/volume] in Blood Jose Cantrellmos Work Phone: Start: 06-07-2020 Radex spine cervical 2 or 3 views Jose Salmeronnomos Work Phone: Start: 06-07-2020 Glucose [Mass/volume] in Blood Jose Gallagher Work Phone: Start: 06-07-2020 Glucose [Mass/volume] in Blood Jose Alcantars Work Phone: Start: 06-07-2020 End: 06-07-2020 DISCECTOMY ANTERIOR CERVICAL WITH FUSION 2-3 LEVELS Jose Gallagher Work Phone: Start: 06-07-2020 Glucose [Mass/volume] in Blood Jose Gallagher Work Phone: Start: 06-06-2020 Glucose [Mass/volume] in Blood Marianela Fowler Work Phone: Start: 05-18-2020 CT of chest Marianela Fowler Work Phone: Start: 04-27-2020 Standard chest X-ray Migel Browning Work Phone: Start: 03-13-2020 End: 03-13-2020 Arthrocentesis Kary Gatesakua Lennon Work Phone: Start: 03-08-2020 MRI of lumbar spine without contrast Migel Bryson Abel Work Phone: Start: 03-08-2020 3 comp foot exam completed Babak walden Start: 03-02-2020 Microalbumin [Mass/volume] in Urine by Test strip Marianela Fowler Start: 01-27-2020 Mammography Marianela Fowler Start: 01-12-2020 Urinalysis Carl Perez Work Phone: Start: 01-12-2020 COVID-19, PCR PANEL (AMB) Carl Perez Work Phone: Start: 01-12-2020 Basic metabolic 1998 panel - Serum or Plasma Carl Perez Work Phone: Start: 01-12-2020 Complete blood count with white cell differential, automated Carl Perez Work Phone: Start: 01-12-2020 Complete blood count with white cell differential, manual Carl Perez Work Phone: Start: 01-12-2020 Hepatic function 2000 panel - Serum or Plasma Carl Perez Work Phone: Start: 01-12-2020 Lipase [Enzymatic activity/volume] in Serum or Plasma Carl Perez Work Phone: Start: 01-12-2020 Troponin measurement Carl Perez Work Phone: Start: 01-12-2020 12 lead ECG Carl Perez Work Phone: Start: 08-10-2019 Glucose [Mass/volume] in Blood Farhad Palmer Work Phone: Start: 08-05-2019 Hemoglobin A1c/Hemoglobin.total in Blood Farhad Palmer Work Phone: Start: 08-05-2019 3 comp foot exam completed Misaelstephenie Butt jeff Start: 05-17-2019 Basic metabolic 2000 panel - Serum or Plasma Steven Chris Egal Work Phone: Start: 05-17-2019 LAVENDER TOP Steven Chris Egal Work Phone: Start: 05-17-2019 LIGHT BLUE TOP Steven Chris Egal Work Phone: Start: 05-17-2019 LIGHT GREEN TOP Steven Chris Egal Work Phone: Start: 05-17-2019 Magnesium [Mass/volume] in Serum or Plasma Steven Chris Egal Work Phone: Start: 05-17-2019 MINT GREEN TOP Steven Chris Egal Work Phone: Start: 05-17-2019 RAINBOW DRAW Steven Chris Egal Work Phone: Start: 05-05-2019 Adult depression screening assessment Kristie Vera Start: 04-29-2019 3 comp foot exam completed Marianela Fowler Start: 04-19-2019 Ct abdomen & pelvis w/contrast material Charles Buckley Work Phone: Start: 04-19-2019 Choriogonadotropin.beta subunit ( test) [Presence] in Serum or Plasma Charles Buckley Work Phone: Start: 04-19-2019 Complete blood count with white cell differential, automated Charles Buckley Work Phone: Start: 04-19-2019 Complete blood count with white cell differential, manual Charles Buckley Work Phone: Start: 04-19-2019 Comprehensive metabolic 2000 panel - Serum or Plasma Charles Buckley Work Phone: Start: 04-19-2019 Lipase [Enzymatic activity/volume] in Serum or Plasma Charles Buckley Work Phone: Start: 04-19-2019 Troponin measurement Charles Buckley Work Phone: Start: 04-19-2019 12 lead ECG Charles Buckley Work Phone: Start: 02-28-2019 X-ray of right foot Margarito Jacobo Work Phone: Start: 02-28-2019 Radex spine lumbosacral 2/3 views Margarito Jacobo Work Phone: Start: 12-29-2018 Hemoglobin A1c/Hemoglobin.total in Blood Meka Aggarwal Work Phone: Start: 12-28-2018 3 comp foot exam completed Brando Hurley Start: 12-17-2018 Radiologic examination of cervical spine, anteroposterior and lateral Linh Quintanilla Jennyjudson Work Phone: Start: 12-10-2018 CT of thoracic spine Anamika Quintana [facility] Work Phone: Start: 12-10-2018 CT of lumbar spine without contrast Anamika Cano Work Phone: Start: 12-10-2018 Choriogonadotropin ( test) [Presence] in Urine Anamika Cano Work Phone: Start: 12-10-2018 Urinalysis Anamika avalos Work Phone: Start: 12-09-2018 Mammography Tatum Young Start: 08-23-2018 3 comp foot exam completed Kary Lennon Start: 08-23-2018 Microalbumin [Mass/volume] in Urine by Test strip Naomi Reece Start: 07-20-2018 End: 07-20-2018 Hemoglobin A1c/Hemoglobin.total in Blood Naomi Wilde Reece Work Phone: Start: 07-20-2018 3 comp foot exam completed Naomi fatima Start: 03-12-2018 Mammography Renee Perez Start: 10-29-2017 Lipid 1996 panel - Serum or Plasma Sravanthi Dean Start: 05-07-2017 Colonoscopy Kristie Everson Start: 04-28-2017 Microscopic observation [Identifier] in Cervix by Cyto stain Scott Espinosa Start: 04-21-2017 Colonoscopy Arianna Rosales APRN.CORPORATE CONSULTANT Work Phone: Plan of Treatment Date Care Activity Detail Author Start: 07-28-2033 Urine microalbumin profile DTaP,Tdap,Td Vaccine (4 - Td or Tdap) [facility] Start: 05-07-2027 Colonoscopy COLONOSCOPY [facility] Start: 05-07-2027 Protein mass conc COLONOSCOPY [facility] Start: 05-07-2027 Screening colonoscopy COLONOSCOPY [facility] Start: 05-07-2027 Screening for malignant neoplasm of colon [facility] Start: 04-22-2027 COLORECTAL CANCER SCREENING COLORECTAL CANCER SCREENING [facility] Comment on above: Postponed from 2010 (Postponed To Appropriate Date) Start: 04-22-2027 Screening for malignant neoplasm of colon Colorectal Cancer Screening [facility] Comment on above: Postponed from 2010 (Postponed To Appropriate Date) Start: 04-21-2027 HPV TESTING HPV TESTING [facility] Start: 04-21-2027 PAP TESTING PAP TESTING [facility] Start: 04-21-2027 Screening for malignant neoplasm of cervix [facility] Start: 02-28-2026 Annual PCP Team Chronic Disease Visit Annual PCP Team Chronic Disease Visit [facility] Start: 02-28-2026 Covid-19 Vaccine ( season) Covid-19 Vaccine ( season) [facility] Comment on above: Postponed from 05/15/2024 (Declined at t his time) Start: 02-28-2026 Shingrix Vaccine (1 of 2) Shingrix Vaccine (1 of 2) [facility] Comment on above: Postponed from 2015 (Declined at t his time) Start: 01-03-2026 Screening for malignant neoplasm of breast Mammogram Screening [facility] Start: 09-19-2025 Glaucoma screening Dilated Retinal Exam [facility] Start: 08-31-2025 End: 08-31-2025 Patient encounter procedure 08/31/2025 2:00 PM EST Office Visit [facility] [address], [place] [id number] Arianna Rosales APRN.CORPORATE CONSULTANT [address], [place] [id number] 6 MTH F/U HTN and Hyperlipidemia [facility] Comment on above: 6 MTH F/U HTN and Hyperlipidemia Start: 08-30-2025 Annual PCP Team Chronic Disease Visit Annual PCP Team Chronic Disease Visit [facility] Start: 08-30-2025 BP Controlled (<130/80) BP Controlled (<130/80) [facility] Start: 08-30-2025 HIV screening HIV Screening [facility] Comment on above: Postponed from 1983 (Declined at t his time) Start: 08-15-2025 End: 08-15-2025 Patient encounter procedure 08/15/2025 2:20 PM EST Office Visit [facility] [address] [place] [address] Arianna Rosales APRN.CORPORATE CONSULTANT [address], [place] [phone] medicare wellness [facility] Comment on above: medicare wellness Start: 06-05-2025 End: 06-05-2025 Patient encounter procedure 06/05/2025 2:20 PM EDT Office Visit Endocrinology [address] [place] [address] Irma Valera MD [address] [place] [address] 2MO OV Endocrinology Comment on above: 2MO OV Start: 05-31-2025 Hemoglobin A1c measurement HbA1C [facility] Start: 05-15-2025 Influenza vaccination [facility] Start: 04-03-2025 End: 04-03-2025 Patient encounter procedure 04/03/2025 3:00 PM EDT Office Visit Endocrinology [address] [place] [address] Irma Valera MD [address] [place] [phone] diabetes Endocrinology Comment on above: diabetes Start: 02-28-2025 End: 05-30-2025 CBC W Auto Differential panel - Blood COMPLETE BLOOD COUNT AND DIFFERENTIAL Lab Routine Hypertension, essential Expected: 02/28/2025, Expires: 05/30/2025 [facility] Comment on above: Expected: 02/28/2025, Expires: Start: 02-28-2025 End: 05-30-2025 Comprehensive metabolic 2000 panel - Serum or Plasma COMPREHENSIVE METABOLIC PANEL Lab Routine Type 2 diabetes mellitus with peripheral neuropathy (HCC) Hypertension, essential Expected: 02/28/2025, Expires: 05/30/2025 [facility] Comment on above: Expected: 02/28/2025, Expires: Start: 02-28-2025 End: 05-30-2025 Lipid 1996 panel - Serum or Plasma LIPID PANEL, FASTING Lab Routine Hyperlipidemia, mixed Expected: 02/28/2025, Expires: 05/30/2025 [facility] Comment on above: Expected: 02/28/2025, Expires: Start: 02-28-2025 End: 02-28-2025 Patient encounter procedure 02/28/2025 1:40 PM EDT Office Visit [facility] [address], [place] [phone] Arianna Rosales, LOCOMOTIVE ENGINEER.[facility] [address], [place] [phone] 6 MTH F/U DM, HTN and Hyperlipidemia [facility] Comment on above: 6 MTH F/U DM, HTN and Hyperlipidemia Start: 02-08-2025 End: 02-08-2025 Patient encounter procedure 02/08/2025 11:00 AM EDT Office Visit Endocrinology [address] [place] [address] Kerry Benítez, LOCOMOTIVE ENGINEER.CORPORATE CONSULTANT [address] [place] [address] diabetes Endocrinology Comment on above: diabetes Start: 01-04-2025 Annual PCP Team Chronic Disease Visit Annual PCP Team Chronic Disease Visit [facility] Start: 01-04-2025 BP Controlled (<130/80) BP Controlled (<130/80) [facility] Start: 10-08-2024 Annual PCP Team Chronic Disease Visit Annual PCP Team Chronic Disease Visit [facility] Start: 10-08-2024 BP Controlled (<130/80) BP Controlled (<130/80) [facility] Start: 09-14-2024 Medicare Advantage Annual Wellness Visit Medicare Advantage Annual Wellness Visit [facility] Start: 09-13-2024 End: 09-13-2024 Patient encounter procedure 09/13/2024 1:50 PM EST Appointment Mammogram [address] [place] [address] FRED SCREENING W ALFREDO Mammogram Comment on above: FRED SCREENING W ALFREDO Start: 09-05-2024 End: 09-05-2024 Patient encounter procedure 09/05/2024 12:50 PM EST Appointment Mammogram [address] [place] [address] Mammogram Start: 08-30-2024 End: 11-29-2024 CBC W Auto Differential panel - Blood COMPLETE BLOOD COUNT AND DIFFERENTIAL Lab Routine Hypertension, essential Expected: 08/30/2024, Expires: 11/29/2024 [facility] Comment on above: Expected: 08/30/2024, Expires: Start: 08-30-2024 End: 11-29-2024 Comprehensive metabolic 2000 panel - Serum or Plasma COMPREHENSIVE METABOLIC PANEL Lab Routine Hypertension, essential Expected: 08/30/2024, Expires: 11/29/2024 [facility] Comment on above: Expected: 08/30/2024, Expires: Start: 08-30-2024 End: 11-29-2024 Hemoglobin A1c in Blood HEMOGLOBIN A1C Lab Routine Diabetic polyneuropathy associated with type 2 diabetes mellitus (HCC) Expected: 08/30/2024, Expires: 11/29/2024 [facility] Comment on above: Expected: 08/30/2024, Expires: Start: 08-30-2024 End: 11-29-2024 Lipid 1996 panel - Serum or Plasma LIPID PANEL BASIC Lab Routine Hyperlipidemia, mixed Expected: 08/30/2024, Expires: 11/29/2024 [facility] Work Phone: Comment on above: Expected: 08/30/2024, Expires: Start: 08-30-2024 End: 11-29-2024 Microalbumin/Creatinin e [Mass Ratio] in Urine ALBUMIN/CREATININE RATIO, URINE Lab Routine Diabetic polyneuropathy associated with type 2 diabetes mellitus (HCC) Expected: 08/30/2024, Expires: 11/29/2024 [facility] Comment on above: Expected: 08/30/2024, Expires: Start: 08-30-2024 End: 08-30-2024 Patient encounter procedure 08/30/2024 2:00 PM EST Office Visit [facility] [address] [place] [address] Arianna Rosales, LOCOMOTIVE ENGINEER.CORPORATE CONSULTANT [address] [place] [address] 6 MTH F/U HTN and Hyperlipidemia, Care Gap- Mamm, Colon, A1C, Urine Albumin, GFR, Pls schedule AMW as future appt. [facility] Comment on above: 6 MTH F/U HTN and Hyperlipidemia, Care G ap- Mamm, Colon, A1C, Urine Albumin, GFR, Pls schedule AMW as future appt. Start: 08-04-2024 End: 08-04-2024 Patient encounter procedure 08/04/2024 1:20 PM EST Office Visit [facility] [address] [place] [address] Arianna Rosales APRN.CORPORATE CONSULTANT [address] [place] [address] 6 MTH F/U HTN and Hyperlipidemia, Care Gap- Mamm, Colon, A1C, Urine Albumin, GFR, Pls schedule AMW as future appt [facility] Comment on above: 6 MTH F/U HTN and Hyperlipidemia, Care G ap- Mamm, Colon, A1C, Urine Albumin, GFR, Pls schedule AMW as future appt Start: 07-11-2024 End: 07-11-2024 Patient encounter procedure [facility] Comment on above: 6 MTH F/U HTN and Hyperlipidemia 6 MTH F/U HTN and Hy perlipidemia, Care Gap- Colon, A1C, Urine Albumin, GFR, Pls schedule AMW as future appt 6 MTH F/U HTN and Hy perlipidemia, Care Gap- Mamm, Colon, A1C, Urine Albumin, GFR, Pls schedule AMW as future appt Start: 06-29-2024 Annual PCP Team Chronic Disease Visit Annual PCP Team Chronic Disease Visit [facility] Start: 06-29-2024 BP Controlled (<130/80) BP Controlled (<130/80) [facility] Start: 06-29-2024 HIV Screening HIV Screening [facility] Comment on above: Postponed from 1983 (Declined at t his time) Start: 06-29-2024 HIV screening HIV Screening [facility] Comment on above: Postponed from 1983 (Declined at t his time) Start: 06-13-2024 End: 06-13-2024 Patient encounter procedure 06/13/2024 1:00 PM EDT Office Visit Podiatry [address] [place], [place] [phone] Ada Shin [address] [place], [place] [phone] 1 YEAR FOLLOW UP DIABETIC FOOT CARE Podiatry Comment on above: 1 YEAR FOLLOW UP DIABETIC FOOT CARE Start: 05-15-2024 Covid-19 Vaccine (4 - 2024-25 season) Covid-19 Vaccine () [facility] Start: 05-15-2024 Influenza vaccination [facility] Start: 04-16-2024 Mammography [facility] Start: 04-16-2024 Screening for malignant neoplasm of breast Mammogram Screening [facility] Start: 03-30-2024 Hemoglobin A1c measurement HbA1C [facility] Start: 03-23-2024 3 comp foot exam completed DIABETIC FOOT EXAM [facility] Start: 03-23-2024 ANNUAL PCP TEAM CHRONIC DISEASE VISIT ANNUAL PCP TEAM CHRONIC DISEASE VISIT [facility] Start: 03-23-2024 BP CONTROLLED (<130/80) BP CONTROLLED (<130/80) [facility] Start: 03-23-2024 Diabetic foot examination Diabetic Foot Exam [facility] Start: 02-09-2024 End: 02-09-2024 Patient encounter procedure 02/09/2024 3:20 PM EDT Office Visit [facility] [address] [place] [address] Arianna Rosales, LOCOMOTIVE ENGINEER.[facility] [address] [place] [address] Hospital Follow Up - Amputation of right third toe due to osteomyelitis [facility] Comment on above: Hospital Follow Up - Amputation of right third toe due to osteomyelitis Start: 01-17-2024 End: 04-17-2024 Lipid 1996 panel - Serum or Plasma LIPID PANEL BASIC Lab Routine Hyperlipidemia, mixed Expected: 01/17/2024, Expires: 04/17/2024 [facility] Work Phone: Comment on above: Expected: 01/17/2024, Expires: Start: 01-17-2024 End: 04-17-2024 Microalbumin/Creatinin e [Mass Ratio] in Urine ALBUMIN/CREATININE RATIO, URINE Lab Routine Type 2 diabetes mellitus with peripheral neuropathy (HCC) Expected: 01/17/2024, Expires: 04/17/2024 [facility] Comment on above: Expected: 01/17/2024, Expires: Start: 12-23-2023 ANNUAL PCP TEAM CHRONIC DISEASE VISIT ANNUAL PCP TEAM CHRONIC DISEASE VISIT [facility] Start: 12-23-2023 BP CONTROLLED (<130/80) BP CONTROLLED (<130/80) [facility] Start: 12-23-2023 Hepatitis B surface antibody level LDL CHOLESTEROL [facility] Start: 12-23-2023 PNEUMOCOCCAL (1 - PCV) PNEUMOCOCCAL (1 - PCV) [facility] ic Comment on above: Postponed from 1971 (Declined at t his time) Start: 12-23-2023 Pneumococcal vaccination Pneumococcal Vaccine (1 - PCV) [facility] Comment on above: Postponed from 1971 (Declined at t his time) Start: 12-23-2023 SHINGRIX VACCINE (1 of 2) SHINGRIX VACCINE (1 of 2) [facility] Comment on above: Postponed from 2015 (Declined at t his time) Start: 12-23-2023 Urine microalbumin profile [facility] Comment on above: Postponed from 07/11/2021 (Declined at t his time) Start: 12-02-2023 Glaucoma screening Dilated Retinal Exam [facility] Start: 12-02-2023 Hepatitis C antibody, confirmatory test DILATED RETINAL EXAM [facility] Start: 10-15-2023 Hemoglobin A1c measurement HbA1C [facility] Start: 09-29-2023 ANNUAL PCP TEAM CHRONIC DISEASE VISIT ANNUAL PCP TEAM CHRONIC DISEASE VISIT [facility] Start: 09-29-2023 BP CONTROLLED (<130/80) BP CONTROLLED (<130/80) [facility] Start: 09-12-2023 Hemoglobin A1c/Hemoglobin.total in Blood HbA1C [facility] Start: 08-28-2023 Hepatitis B screening URINE ALBUMIN:CREATININE RATIO [facility] Start: 06-23-2023 Hemoglobin A1c/Hemoglobin.total in Blood HBA1C [facility] Start: 06-08-2023 DIABETES SCREEN DIABETES SCREEN [facility] Start: 05-15-2023 COVID-19 Vaccine ( season) COVID-19 Vaccine () [facility] Start: 05-15-2023 Covid-19 Vaccine ( season) Covid-19 Vaccine ( season) [facility] Start: 05-15-2023 Influenza vaccination [facility] Start: 04-21-2023 ANNUAL PCP TEAM CHRONIC DISEASE VISIT ANNUAL PCP TEAM CHRONIC DISEASE VISIT [facility] Start: 04-21-2023 BP CONTROLLED (<130/80) BP CONTROLLED (<130/80) [facility] Start: 04-16-2023 Mammography MAMMOGRAM [facility] Comment on above: Postponed from 12/31/2022 (Currently Luis eduled) Start: 03-23-2023 Hemoglobin A1c/Hemoglobin.total in Blood [facility] Comment on above: Ordered: 03/23/2023 Start: 03-04-2023 ANNUAL PCP TEAM CHRONIC DISEASE VISIT ANNUAL PCP TEAM CHRONIC DISEASE VISIT [facility] Start: 03-04-2023 BP CONTROLLED (<130/80) BP CONTROLLED (<130/80) [facility] Start: 01-20-2023 Hepatitis B surface antibody level LDL CHOLESTEROL [facility] Start: 01-06-2023 3 comp foot exam completed DIABETIC FOOT EXAM [facility] Start: 12-31-2022 Mammography MAMMOGRAM [facility] Start: 12-17-2022 End: 02-16-2023 Comprehensive metabolic 2000 panel - Serum or Plasma COMP METABOLIC PANEL Lab Routine Hyperlipidemia, mixed Type 2 diabetes mellitus with peripheral neuropathy (HCC) Expected: 12/17/2022, Expires: 02/16/2023 [facility] Work Phone: Comment on above: Expected: 12/17/2022, Expires: 3 Start: 12-17-2022 End: 02-16-2023 Hemoglobin A1c in Blood HGB A1C Lab Routine Type 2 diabetes mellitus with peripheral neuropathy (HCC) Expected: 12/17/2022, Expires: 02/16/2023 [facility] Work Phone: Comment on above: Expected: 12/17/2022, Expires: 3 Start: 12-17-2022 End: 02-16-2023 Lipid 1996 panel - Serum or Plasma LIPID PANEL BASIC Lab Routine Hyperlipidemia, mixed Expected: 12/17/2022, Expires: 02/16/2023 [facility] Work Phone: Comment on above: Expected: 12/17/2022, Expires: 3 Start: 12-10-2022 ANNUAL PCP TEAM CHRONIC DISEASE VISIT ANNUAL PCP TEAM CHRONIC DISEASE VISIT [facility] Start: 12-10-2022 COVID-19 VACCINE (3 - Booster for Pfizer series) COVID-19 VACCINE (3 - Booster for Pfizer series) [facility] Comment on above: Postponed from 07/04/2021 (Declined at t his time) Postponed from 03/29 (Declined at this time) Start: 12-10-2022 HIV SCREENING HIV SCREENING [facility] Comment on above: Postponed from 1983 (Declined at t his time) Start: 11-26-2022 Hemoglobin A1c/Hemoglobin.total in Blood HBA1C [facility] Start: 11-26-2022 Hepatitis C antibody, confirmatory test DILATED RETINAL EXAM [facility] Start: 11-11-2022 Adult depression screening assessment DEPRESSION SCREENING [facility] Start: 10-29-2022 Fasting lipid profile LIPID SCREENING [facility] Start: 07-15-2022 End: 09-14-2022 ALBUMIN/CREAT RATIO RND UR ALBUMIN/CREAT RATIO RND UR Lab Routine Type 2 diabetes mellitus without complication, with long-term current use of insulin ([facility]) Expected: 07/15/2022, Expires: 09/14/2022 [facility] Work Phone: Comment on above: Expected: 07/15/2022, Expires: 3 Start: 07-15-2022 End: 09-14-2022 Hemoglobin A1c in Blood HGB A1C Lab Routine Type 2 diabetes mellitus without complication, with long-term current use of insulin ([facility]) Expected: 07/15/2022, Expires: 09/14/2022 [facility] Work Phone: Comment on above: Expected: 07/15/2022, Expires: 3 Start: 07-15-2022 End: 09-14-2022 SCHEDULE LAB TESTING SCHEDULE LAB TESTING Lab Routine Expected: 07/15/2022, Expires: 09/14/2022 [facility] Work Phone: Comment on above: Expected: 07/15/2022, Expires: 3 Start: 05-15-2022 Influenza vaccination [facility] Start: 04-30-2022 HPV TESTING HPV TESTING [facility] Start: 04-22-2022 Hemoglobin A1c/Hemoglobin.total in Blood HBA1C [facility] Start: 04-21-2022 End: 06-21-2022 ALBUMIN/CREAT RATIO RND UR ALBUMIN/CREAT RATIO RND UR Lab Routine Type 2 diabetes mellitus with peripheral neuropathy (HCC) Expected: 04/21/2022, Expires: 06/21/2022 [facility] Work Phone: Comment on above: Expected: 04/21/2022, Expires: 2 Start: 04-21-2022 End: 06-21-2022 Hemoglobin A1c in Blood HGB A1C Lab Routine Type 2 diabetes mellitus with peripheral neuropathy (HCC) Expected: 04/21/2022, Expires: 06/21/2022 [facility] Work Phone: Comment on above: Expected: 04/21/2022, Expires: 2 Start: 03-13-2022 Influenza vaccination INFLUENZA (#1) [facility] Comment on above: Postponed from 05/15/2021 (Declined at t his time) Start: 01-16-2022 Diabetic foot examination [facility] Start: 12-29-2021 PAP TESTING PAP TESTING [facility] Start: 12-10-2021 End: 02-09-2022 Hepatitis C virus Ab [Presence] in Serum HEP C AB IA W/CONF SCRN Lab Routine Special screening examination for viral disease Expected: 12/10/2021, Expires: 02/09/2022 [facility] Work Phone: Comment on above: Expected: 12/10/2021, Expires: 2 Start: 10-09-2021 Diabetic foot examination Foot Exam [facility] Start: 09-02-2021 End: 09-02-2021 Patient encounter procedure 09/02/2021 Office Visit Primary Care Marianela Fowler, CORPORATE CONSULTANT [facility] [address] [place], [place] [id number] [facility] Start: 07-12-2021 Hemoglobin A1c measurement A1C [facility] Start: 07-11-2021 Tetanus vaccination [facility] Start: 07-11-2021 Urine microalbumin profile DTAP,TDAP,TD (3 - Td or Tdap) [facility] Start: 07-09-2021 Diabetic foot examination Foot Exam [facility] Start: 07-07-2021 Albumin DL <= 20 mg/L (U) [Mass/Vol] Urine Microalbumin [facility] Start: 07-07-2021 Microalbumin measurement, urine, quantitative Urine Microalbumin [facility] Start: 07-07-2021 Urine screening for protein Urine Microalbumin [facility] Start: 07-04-2021 COVID-19 VACCINE (3 - Booster for Pfizer series) COVID-19 VACCINE (3 - Booster for Pfizer series) [facility] Start: 05-22-2021 Depression screening using PHQ-9 (Patient Health Questionnaire 9) score Depression Screening/Follow-Up (PHQ-2/9) [facility] Start: 05-15-2021 Influenza vaccination Sequential Influenza Vaccine (#1) [facility] Start: 04-11-2021 Hemoglobin A1c measurement A1C [facility] Start: 04-08-2021 HbA1c (Bld) [Mass fraction] A1C [facility] Start: 04-08-2021 Hemoglobin A1c measurement A1C [facility] Start: 03-29-2021 COVID-19 Vaccine (3 - Booster for Pfizer series) COVID-19 Vaccine (3 - Booster for Pfizer series) [facility] Start: 03-11-2021 End: 03-11-2021 Patient encounter procedure 03/11/2021 Appointment Radiology Nancy Shanks MD [address] [place] [address] [phone] [facility] Start: 03-08-2021 Diabetic foot examination Foot Exam [facility] Start: 03-02-2021 Albumin DL <= 20 mg/L (U) [Mass/Vol] Urine Microalbumin [facility] Start: 02-25-2021 End: 02-25-2021 Office Visit 02/25/2021 Office Visit Primary Care Marianela Fowler, JOVANA [address] [place] [address] [phone] [facility] Start: 02-18-2021 End: 02-18-2021 Patient encounter procedure 02/18/2021 Office Visit Endocrinology Garima Combs, CORPORATE CONSULTANT [address] [place] [address] [phone] [facility] Start: 02-01-2021 End: 02-01-2021 Patient encounter procedure 02/01/2021 Office Visit Neurosurgery Migel Browning PA-C [address] [place] [address] [phone] [facility] Start: 01-28-2021 End: 01-28-2021 Appointment 01/28/2021 Appointment Radiology Nancy Shanks MD [address] [place] [address] [phone] [facility] Mammography Start: 01-26-2021 Screening for malignant neoplasm of breast Mammogram [facility] Start: 01-26-2021 Screening mammography Mammogram [facility] Start: 01-25-2021 End: 01-25-2021 ambulatory 01/25/2021 Immunization Primary Care Jr Mahmood MD [address] [place] [address] [phone] [facility], [facility]ated [facility] Start: 01-24-2021 COVID-19 Vaccine (2 - Pfizer 2-dose series) COVID-19 Vaccine (2 - Pfizer 2-dose series) [facility] Start: 01-07-2021 End: 01-07-2021 Office Visit 01/07/2021 Office Visit Endocrinology Garima Combs, JOVANA [address] [facility] [place] [address] [phone] [facility] Start: 01-05-2021 HbA1c (Bld) [Mass fraction] A1C [facility] Start: 01-03-2021 End: 01-03-2021 ambulatory 01/03/2021 Immunization Primary Care [facility] Start: 01-01-2021 End: 01-01-2021 Procedure visit 01/01/2021 Procedure visit Neurosurgery Migel Browning PA-C [address] [place] [address] [phone] [facility] Start: 12-06-2020 End: 12-06-2020 Appointment 12/06/2020 Appointment Radiology [facility] Mammography Start: 11-21-2020 End: 11-21-2020 Office Visit 11/21/2020 Office Visit Primary Care Marianela Fowler, CORPORATE CONSULTANT [address] [place] [address] [phone] [facility] Start: 11-06-2020 End: 11-06-2020 Telemedicine 11/06/2020 Telemedicine Pulmonology Marianela Fowler, CORPORATE CONSULTANT [address] [place] [address] [phone] Francisco Stokes MD [address] [address] [phone] [facility] Start: 10-22-2020 End: 10-22-2020 Telemedicine 10/22/2020 Telemedicine Pulmonology Marianela Fowler, CORPORATE CONSULTANT [address] [place] [address] [phone] Francisco Stokes MD [address] [address] [phone] [facility] Start: 10-09-2020 End: 10-09-2020 Office Visit [facility] Start: 09-27-2020 End: 09-27-2020 Office Visit 09/27/2020 Office Visit Neurosurgery Migel Browning PA-C [address] [place] [address] [phone] [facility] Start: 09-01-2020 HbA1c (Bld) [Mass fraction] A1C [facility] Start: 08-23-2020 End: 08-23-2020 Initial consult 08/23/2020 Initial consult Pulmonology Francisco Stokes MD [address] [place] [address] [phone] [facility] Start: 08-22-2020 End: 08-22-2020 Office Visit 08/22/2020 Office Visit Primary Care Marianela Fowler, CORPORATE CONSULTANT [address] [place] [address] [phone] [facility] Start: 08-05-2020 Diabetic foot examination FOOT EXAM [facility] Start: 07-24-2020 End: 07-24-2020 Follow-Up 07/24/2020 Follow-Up Neurosurgery Migel Browning PA-C [address] [place] [address] [phone] [facility] Start: 07-10-2020 End: 07-10-2020 Appointment 07/10/2020 Appointment Home Health Services Garett Livingston RN [facility] Start: 07-09-2020 End: 07-09-2020 Office Visit 07/09/2020 Office Visit Endocrinology Garima Combs, CORPORATE CONSULTANT [address] [place] [address] [phone] [facility] Start: 07-05-2020 End: 07-05-2020 Appointment 07/05/2020 Appointment Home Health Services Garett Livingston RN [facility] Start: 07-04-2020 End: 07-04-2020 Home Care Visit 07/04/2020 Home Care Visit Home Health Services Mago Olmos, JOSUE [facility] Start: 07-03-2020 End: 07-03-2020 Home Care Visit 07/03/2020 Home Care Visit Home Health Services Garett Livingston RN [facility] Start: 07-02-2020 End: 07-02-2020 Home Care Visit 07/02/2020 Home Care Visit Home Health Services Neena Moreno PTA [facility] Start: 06-29-2020 End: 06-29-2020 Home Care Visit 06/29/2020 Home Care Visit Home Health Services Neena Moreno PTA [facility] Start: 06-28-2020 End: 06-28-2020 Home Care Visit 06/28/2020 Home Care Visit Home Health Services Neena Moreno PTA [facility] Start: 06-26-2020 End: 06-26-2020 Follow-Up 06/26/2020 Follow-Up Neurosurgery Migel Browning, KEVIN [address] [address] [phone] [facility] Start: 06-26-2020 End: 06-26-2020 Home Care Visit 06/26/2020 Home Care Visit Home Health Services Neena Moreno PTA [facility] Start: 06-26-2020 End: 06-26-2020 Home Care Visit [facility] Start: 06-25-2020 End: 06-25-2020 Home Care Visit [facility] Start: 06-22-2020 End: 06-22-2020 Follow-Up [facility] Start: 06-21-2020 End: 06-21-2020 Home Care Visit 06/21/2020 Home Care Visit Home Health Services Marva Combs OTA [facility] Start: 06-21-2020 End: 06-21-2020 Home Care Visit 06/21/2020 Home Care Visit Home Health Services Neena Moreno PTA [facility] Start: 06-20-2020 End: 06-21-2020 Follow-Up [facility] Start: 06-19-2020 End: 06-19-2020 Appointment 06/19/2020 Appointment Radiology Marianela Fowler, CORPORATE CONSULTANT [address] [place] [address] [phone] [facility] Imaging Services PET Start: 06-19-2020 End: 06-19-2020 Home Care Visit 06/19/2020 Home Care Visit Home Health Services Garett Livingsotn RN [facility] Start: 06-15-2020 End: 03-09-2021 Complete blood count with white cell differential, manual CBC and Differential Lab Routine Uncontrolled type 2 diabetes mellitus with hyperglycemia, with long-term current use of insulin (HCC) Expected: 06/15/2020, Expires: 03/09/2021 [facility] Comment on above: Expected: 06/15/2020, Expires: Start: 06-15-2020 End: 03-09-2021 Comprehensive metabolic 2000 panel Comprehensive Metabolic Panel Lab Routine Uncontrolled type 2 diabetes mellitus with hyperglycemia, with long-term current use of insulin (HCC) Expected: 06/15/2020, Expires: 03/09/2021 [facility] Comment on above: Expected: 06/15/2020, Expires: Start: 06-15-2020 End: 03-09-2021 Free T4 [Mass/Vol] T4, Free Lab Routine Uncontrolled type 2 diabetes mellitus with hyperglycemia, with long-term current use of insulin (HCC) Expected: 06/15/2020, Expires: 03/09/2021 [facility] Comment on above: Expected: 06/15/2020, Expires: Start: 06-15-2020 End: 03-09-2021 HbA1c (Bld) [Mass fraction] Hemoglobin A1c Lab Routine Uncontrolled type 2 diabetes mellitus with hyperglycemia, with long-term current use of insulin (HCC) Expected: 06/15/2020, Expires: 03/09/2021 [facility] Comment on above: Expected: 06/15/2020, Expires: Start: 06-15-2020 End: 03-09-2021 Lipid 1996 panel Lipid Panel Lab Routine Uncontrolled type 2 diabetes mellitus with hyperglycemia, with long-term current use of insulin (HCC) Expected: 06/15/2020, Expires: 03/09/2021 [facility] Comment on above: Expected: 06/15/2020, Expires: Start: 06-15-2020 End: 03-08-2021 Microalbumin measurement, urine, quantitative Microalbumin/Creatinine Ratio, UR Random Lab Routine Uncontrolled type 2 diabetes mellitus with hyperglycemia, with long-term current use of insulin (HCC) Expected: 06/15/2020, Expires: 03/08/2021 [facility] Comment on above: Expected: 06/15/2020, Expires: Start: 06-15-2020 End: 03-09-2021 TSH Qn TSH Lab Routine Uncontrolled type 2 diabetes mellitus with hyperglycemia, with long-term current use of insulin (HCC) Expected: 06/15/2020, Expires: 03/09/2021 [facility] Comment on above: Expected: 06/15/2020, Expires: Start: 06-15-2020 End: 06-15-2020 Home Care Visit [facility] Start: 06-15-2020 End: 06-15-2020 Home Care Visit 06/15/2020 Home Care Visit Home Health Services Mago Olmos, JOSUE [facility] Start: 06-14-2020 End: 06-14-2020 Home Care Visit 06/14/2020 Home Care Visit Home Health Services Garett Livingston, JEREMY [facility] Start: 06-14-2020 End: 06-14-2020 Home Care Visit 06/14/2020 Home Care Visit Home Health Services Michelle Niño OT [facility] Start: 06-13-2020 End: 06-13-2020 Home Care Visit 06/13/2020 Home Care Visit Home Health Services Francisco Augustine PT [facility] Start: 06-12-2020 End: 06-12-2020 Appointment 06/12/2020 Appointment Home Health Services Greg Valentine RN [facility] Start: 06-07-2020 End: 06-07-2020 Hospital Encounter [facility] Periop Comment on above: Anterior Cervical Discectomy and Fusion, C4-5 and C5-6 Start: 05-28-2020 End: 05-28-2020 Office Visit 05/28/2020 Office Visit Pre-Admission Testing [facility] Preadmission Testing Start: 05-22-2020 End: 05-22-2020 Office Visit 05/22/2020 Office Visit Primary Care Marianela Fowler, CORPORATE CONSULTANT [address] [place] [address] [phone] [facility] Start: 05-15-2020 Influenza vaccination given Sequential Influenza Vaccine (#1) [facility] Start: 05-05-2020 Depression screening using PHQ-9 (Patient Health Questionnaire 9) score DEPRESSION SCREENING (PHQ9) [facility] Start: 04-30-2020 End: 04-30-2020 Hospital Encounter [facility] Periop Comment on above: Anterior Cervical Discectomy and Fusion, C4-5 and C5-6 Start: 04-29-2020 Diabetic foot examination FOOT EXAM [facility] Start: 04-28-2020 Screening for malignant neoplasm of cervix [facility] Start: 04-27-2020 End: 04-27-2020 Office Visit 04/27/2020 Office Visit Pre-Admission Testing [facility] Preadmission Testing Start: 04-26-2020 End: 04-26-2020 Office Visit 04/26/2020 Office Visit Lab Migel Browning PA-C [address] [place] [address] [phone] [facility] Start: 04-18-2020 End: 04-18-2020 Office Visit 04/18/2020 Office Visit Jose Moss MD [address] [address] [phone] [facility] Start: 03-29-2020 End: 03-29-2020 Office Visit 03/29/2020 Office Visit Primary Care Marianela Fowler, JOVANA [address] [place] [address] [phone] [facility] Start: 03-23-2020 End: 03-23-2020 Office Visit 03/23/2020 Office Visit Jose Moss MD [address] [address] [phone] [facility] Start: 03-13-2020 End: 03-13-2020 Office Visit 03/13/2020 Office Visit Sports Medicine Kary Lennon, JOVANA [address] [facility] [place] [address] [phone] [facility] Start: 03-08-2020 End: 03-08-2020 Office Visit [facility] Start: 02-20-2020 End: 02-20-2020 Office Visit 02/20/2020 Office Visit Primary Care Marianela Fowler, CORPORATE CONSULTANT [address] [place] [address] [phone] [facility] Start: 02-03-2020 HbA1c (Bld) [Mass fraction] A1C [facility] Start: 02-01-2020 End: 02-01-2020 Procedure visit 02/01/2020 Procedure visit Neurology Keven Alanis MD [address] [place] [address] [phone] [facility] Start: 01-31-2020 End: 01-31-2020 Procedure visit 01/31/2020 Procedure visit Neurology Keven Alanis MD [address] [place] [address] [phone] [facility] Start: 12-29-2019 Diabetic foot examination FOOT EXAM [facility] Start: 12-16-2019 End: 12-16-2019 Treatment 12/16/2019 Treatment Migel Duron PA-C [address] [place] [address] [phone] Meagan El, SALES REPRESENTATIVE [employer] [facility] Start: 12-15-2019 End: 06-15-2020 MG Breast - bilateral screening Mammography Screening Bilateral Routine History of fibrocystic disease of breast Screening mammogram, encounter for Expected: 12/15/2019, Expires: 06/15/2020 [facility] Comment on above: Expected: 12/15/2019, Expires: 0 Start: 12-14-2019 End: 12-14-2019 Office Visit [facility] Start: 12-10-2019 Protein mass conc Mammogram [facility] Start: 12-10-2019 Screening mammography Mammogram [facility] Start: 12-08-2019 End: 12-08-2019 Treatment 12/08/2019 Treatment Migel Duron PA-C [address] [place] [address] [phone] Yaneli Diane, PT [facility] Start: 12-07-2019 End: 12-07-2019 Appointment 12/07/2019 Appointment Radiology [facility] Mammography Start: 12-06-2019 End: 12-06-2019 Treatment 12/06/2019 Treatment Migel Duron PA-C [address] [place] [address] [phone] Meagan El, SALES REPRESENTATIVE [employer] [facility] Start: 12-05-2019 End: 12-05-2019 Office Visit 12/05/2019 Office Visit Endocrinology Garima Combs, CORPORATE CONSULTANT [address] [place] [address] [phone] [facility] Start: 12-02-2019 End: 12-02-2019 Treatment 12/02/2019 Treatment Rehabilitation Migel Browning PA-C [address] [place] [address] [phone] Yaneli Diane, PT [facility] Start: 11-30-2019 End: 11-30-2019 Treatment 11/30/2019 Treatment Migel Duron PA-C [address] [place] [phone] Yaneli Diane, PT [facility] Start: 11-25-2019 End: 11-25-2019 Treatment [facility] Start: 11-23-2019 End: 11-23-2019 Treatment 11/23/2019 Treatment Migel Duron PA-C [address] [place] [address] Cachorro Brown SALES REPRESENTATIVE [employer] [facility] Start: 11-21-2019 End: 11-21-2019 Office Visit 11/21/2019 Office Visit Primary Care Marianela Fowler, CORPORATE CONSULTANT [address] [place] [address] [phone] [facility] Start: 11-16-2019 End: 11-16-2019 Treatment 11/16/2019 Treatment Rehabilitation Migel Browning PA-C [address] [place] [address] [phone] Cachorro Brown PTA [facility] Start: 11-14-2019 End: 11-14-2019 Treatment 11/14/2019 Treatment Rehabilitation Migel Browning PA-C [address] [place] [address] [phone] Cachorro Brown, SALES REPRESENTATIVE [employer] [facility] Start: 11-11-2019 End: 11-11-2019 Treatment 11/11/2019 Treatment Migel Duron PA-C [address] [place], [place] [address] [phone] Paulo Goodman, PT [facility] Start: 11-09-2019 End: 11-09-2019 Treatment 11/09/2019 Treatment Migel Duron PA-C [address] [place] [address] [phone] Meagan El, [facility] Start: 11-04-2019 End: 11-04-2019 Treatment 11/04/2019 Treatment Migel Duron PA-C [address] [place] [address] [phone] Meka Earl, SALES REPRESENTATIVE [employer] [facility] Start: 11-03-2019 End: 11-03-2019 Office Visit 11/03/2019 Office Visit Primary Care Marianela Fowler, CORPORATE CONSULTANT [address] [place] [address] [phone] [facility] Start: 10-29-2019 HbA1c (Bld) [Mass fraction] A1C [facility] Start: 10-10-2019 End: 10-10-2019 Office Visit 10/10/2019 Office Visit Neurosurgery Migel Browning PA-C [address] [place] [address] [phone] [facility] Start: 08-23-2019 Albumin DL <= 20 mg/L mass conc (U) URINE MICROALBUMIN [facility] Start: 08-23-2019 Diabetic foot examination FOOT EXAM [facility] Start: 08-22-2019 End: 08-22-2019 Office Visit 08/22/2019 Office Visit Primary Care Marianela Fowler CNP [address] [place] [address] [phone] [facility] Start: 08-05-2019 End: 08-05-2019 Office Visit [facility] Start: 07-20-2019 Diabetic foot examination FOOT EXAM [facility] Start: 07-07-2019 End: 07-07-2019 Office Visit 07/07/2019 Office Visit Primary Care Marianela Fowler, JOVANA [address] [place] [address] [phone] [facility] Start: 06-30-2019 Hemoglobin A1c/Hemoglobin.total mass fraction (Bld) A1C [facility] Start: 05-15-2019 Influenza vaccination given SEQUENTIAL INFLUENZA VACCINE (#1) [facility] [facility] Start: 05-11-2019 End: 05-11-2019 Office Visit 05/11/2019 Office Visit Orthopedic Surgery Kary Lennon, CORPORATE CONSULTANT [address] [facility] [place] [place] [address] [phone] [facility] Start: 05-05-2019 End: 05-05-2019 Office Visit 05/05/2019 Office Visit Primary Care Marianela Fowler CNP [address] [place] [address] [phone] [facility] Start: 04-29-2019 End: 04-29-2019 Office Visit 04/29/2019 Office Visit Endocrinology Garima Combs, CORPORATE CONSULTANT [address] [address] [phone] [facility] Start: 04-29-2019 End: 04-29-2019 Office Visit 04/29/2019 Office Visit Endocrinology Naomi Reece MD [address] [address] [phone] [facility] Start: 04-01-2019 End: 04-01-2019 Office Visit 04/01/2019 Office Visit Anesthesiology Pain Mgt Jannet Fuentes APRN-CORPORATE CONSULTANT [address] [facility] [place] [address] [phone] [facility] Start: 03-12-2019 Protein mass conc Mammogram [facility] Start: 01-27-2019 End: 01-27-2019 Treatment 01/27/2019 Treatment Rehabilitation Kary Lennon, JOVANA [address] [facility] [address] [phone] Renee Perez, PT [facility] Start: 01-19-2019 End: 01-19-2019 Office Visit 01/19/2019 Office Visit Orthopedic Surgery Kary Lennon CNP [address] [place] [address] [phone] [facility] Start: 01-17-2019 Hemoglobin A1c/Hemoglobin.total mass fraction (Bld) [facility] Start: 01-14-2019 End: 01-14-2019 Treatment 01/14/2019 Treatment Marianela Morales, JOVANA [address] [place] [address] [phone] Renee Perez, PT [facility] Start: 01-12-2019 End: 01-12-2019 Treatment [facility] Start: 01-07-2019 End: 01-07-2019 Treatment 01/07/2019 Treatment Kary Mccann CNP [address] [facility] [place] [address] [phone] Lupe Hernandez PTA [facility] Start: 01-05-2019 End: 01-05-2019 Treatment 01/05/2019 Treatment Kary Mccann CNP [address] [facility] [place] [address] [phone] Brando Hurley [facility] Start: 12-31-2018 End: 12-31-2018 Treatment [facility] Start: 12-29-2018 End: 12-29-2018 Treatment 12/29/2018 Treatment Kary Mccann CNP [address] [place] [address] [phone] Brando Hurley [facility] Start: 12-28-2018 End: 12-28-2018 Treatment 12/28/2018 Treatment Kary Mccann CNP [address] [place] [address] [phone] Meagan El [facility] Start: 12-28-2018 End: 12-28-2018 Ambulatory 12/28/2018 Office Visit Endocrinology Meka Aggarwal PA-C [address] [address] [phone] [facility] Start: 12-21-2018 End: 12-21-2018 Treatment 12/21/2018 Treatment Kary Mccann CNP [address] [place] [address] [phone] Areli Huffman [facility] Start: 12-17-2018 End: 12-17-2018 Treatment [facility] Comment on above: Arrived Start: 12-17-2018 End: 12-17-2018 Office Visit 12/17/2018 Office Visit Orthopedic Surgery Linh Pat MD [address] [place] [address] [phone] [facility] Start: 12-15-2018 End: 12-15-2018 Treatment 12/15/2018 Treatment Rehabilitation Kary Lennon CNP [address] [facility] [place] [address] [phone] Jahaira Devine, SALES REPRESENTATIVE [employer] [facility] Start: 12-14-2018 End: 12-14-2018 Office Visit 12/14/2018 Office Visit General Surgery Nancy Shanks MD [address] [place] [address] [phone] [facility] Start: 12-13-2018 End: 12-13-2018 Office Visit 12/13/2018 Office Visit General Surgery Nancy Shanks MD [address] [place] [address] [phone] [facility] Start: 12-10-2018 End: 12-10-2018 Treatment 12/10/2018 Treatment Rehabilitation Marianela Fowler, CORPORATE CONSULTANT [address] [place] [address] [phone] Renee Perez, PT [facility] Start: 12-09-2018 End: 12-09-2018 Appointment 12/09/2018 Appointment Radiology Nancy Shanks MD [address] [place] [address] [phone] [facility] Mammography Start: 12-07-2018 End: 12-07-2018 Treatment [facility] Start: 12-03-2018 End: 12-03-2018 Treatment 12/03/2018 Treatment Rehabilitation Marianela Fowler, CORPORATE CONSULTANT [address] [place] [address] [phone] Renee Perez, PT [facility] Start: 11-30-2018 End: 11-30-2018 Treatment 11/30/2018 Treatment Rehabilitation Marianela Fowler, CORPORATE CONSULTANT [address] [place] [address] [phone] Lupe Hernandez PTA [facility] Start: 11-26-2018 End: 11-26-2018 Treatment 11/26/2018 Treatment Rehabilitation Marianela Fowler, CORPORATE CONSULTANT [address] [place] [address] [phone] Jahaira Devine [facility] Start: 11-24-2018 End: 11-24-2018 Ambulatory 11/24/2018 Office Visit General Surgery Nancy Shanks MD [address] [address] [phone] [facility] Start: 11-10-2018 End: 11-10-2018 Ambulatory 11/10/2018 Office Visit Orthopedic Surgery Kary Lennon CNP [address] [place] [address] [phone] [facility] Start: 10-06-2018 End: 10-06-2018 Ambulatory 10/06/2018 Office Visit Primary Care Marianela Fowler, CORPORATE CONSULTANT [address] [place] [address] [phone] [facility] Start: 09-13-2018 Ambulatory [facility] Start: 08-26-2018 Hemoglobin A1c/Hemoglobin.total mass fraction (Bld) HEMOGLOBIN A1C [facility] Start: 08-23-2018 End: 08-23-2018 Ambulatory 08/23/2018 Office Visit Endocrinology Naomi Reece MD [address] [address] [phone] [facility] Start: 08-17-2018 End: 08-17-2018 Ambulatory 08/17/2018 Office Visit Primary Care Meka Price, [address] [place] [address] [phone] [facility] Start: 08-05-2018 End: 05-05-2019 Comprehensive metabolic 2000 panel Comprehensive Metabolic Panel Routine Type 2 diabetes mellitus without complication, with long-term current use of insulin (HCC) Expected: 08/05/2018, Expires: 05/05/2019 [facility] Start: 08-05-2018 End: 05-05-2019 Hemoglobin A1c/Hemoglobin.total mass fraction (Bld) Hemoglobin A1c Routine Type 2 diabetes mellitus without complication, with long-term current use of insulin (HCC) Expected: 08/05/2018, Expires: 05/05/2019 [facility] Start: 08-05-2018 End: 11-04-2018 Lipid panel Lipid Panel Routine Type 2 diabetes mellitus without complication, with long-term current use of insulin (HCC) Expected: 08/05/2018 (Approximate), Expires: 11/04/2018 [facility] Start: 08-05-2018 End: 05-05-2019 Microalbumin, Urine, Random Microalbumin, Urine, Random Routine Type 2 diabetes mellitus without complication, with long-term current use of insulin (HCC) Expected: 08/05/2018, Expires: 05/05/2019 [facility] Start: 08-04-2018 End: 08-04-2018 Ambulatory 08/04/2018 Office Visit Orthopedic Surgery Kary Lennon, CORPORATE CONSULTANT [address] [place] [address] [phone] [facility] Start: 07-28-2018 Ambulatory 07/28/2018 Hospital Encounter Naomi Reece MD [address] [place] [address] [phone] [facility] Start: 07-20-2018 End: 07-20-2018 Ambulatory 07/20/2018 Office Visit Endocrinology Naomi Reece MD [address] [facility] [address] [place] [address] [phone] [facility] Start: 07-14-2018 End: 07-14-2018 Ambulatory 07/14/2018 Office Visit Primary Care Meka Price, DO [address] [place] [address] [phone] [facility] Start: 06-23-2018 End: 06-23-2018 Ambulatory 06/23/2018 Office Visit Orthopedic Surgery Kary Lennon, CORPORATE CONSULTANT [address] [place] [address] [phone] [facility] Start: 2018 HbA1c HEMOGLOBIN A1C [facility] Start: 05-26-2018 End: 05-26-2018 Ambulatory 05/26/2018 Office Visit Orthopedic Surgery Kary Lennon CNP [address] [place] [address] [phone] [facility] Start: 05-15-2018 Influenza vaccination [facility] Start: 05-12-2018 End: 05-12-2018 Ambulatory 05/12/2018 Office Visit Orthopedic Surgery Kary Lennon CNP [address] [place] [address] [phone] [facility] Start: 05-10-2018 End: 05-10-2018 Ambulatory 05/10/2018 Scanned Document Orthopedic Surgery Linh Pat MD [address] [place] [address] [phone] [facility] Start: 05-05-2018 End: 05-05-2018 Ambulatory [facility] Primary [facility] Start: 05-05-2018 End: 05-05-2018 Ambulatory 05/05/2018 Office Visit Primary Care Meka Price, [address] [place] [address] [phone] [facility] Start: 04-26-2018 End: 04-26-2018 Ambulatory [facility] Start: 04-21-2018 Colonoscopy COLONOSCOPY [facility] Start: 04-21-2018 Screening for malignant neoplasm of colon Colonoscopy [facility] Start: 03-26-2018 End: 03-26-2018 Ambulatory 03/26/2018 Office Visit Primary Care Scott Espinosa, CORPORATE CONSULTANT [address] [place] [address] [phone] [facility] Start: 03-18-2018 End: 03-18-2018 Ambulatory [facility] Start: 03-13-2018 Ambulatory 03/13/2018 Hospital Encounter Linh Pat MD [address] [place] [address] [phone] [facility] Start: 03-12-2018 Ambulatory 03/12/2018 Hospital Encounter Nancy Shanks MD [address] [place] [address] [phone] [facility] Start: 02-26-2018 End: 02-26-2018 Ambulatory 02/26/2018 Office Visit Primary Care Scott Espinosa, CORPORATE CONSULTANT [address] [place] [address] [phone] [facility] Primary [facility] Start: 01-13-2018 End: 01-13-2018 Ambulatory 01/13/2018 Office Visit Orthopedic Surgery Linh Pat MD [address] [place] [address] [phone] [facility] Start: 12-30-2017 Ambulatory 12/30/2017 Procedure visit Neurology Keven Alanis MD [address] [place] [address] [phone] [facility] Start: 12-23-2017 Ambulatory 12/23/2017 Hospital Encounter Linh Pat MD [address] [place] [address] [phone] [facility] Start: 12-09-2017 [facility] Start: 12-06-2017 Ambulatory 12/06/2017 Hospital Encounter Jasper Stahl MD [address] [place] [address] [phone] [facility] Start: 12-02-2017 Ambulatory 12/02/2017 Office Visit Orthopedic Surgery Linh Pat MD [address] [place] [address] [phone] [facility] Start: 11-26-2017 Ambulatory 11/26/2017 Office Visit Primary Care Scott Espinosa CORPORATE CONSULTANT [address] [place] [address] [phone] [facility] Primary [facility] Start: 11-25-2017 End: 11-25-2017 Ambulatory 11/25/2017 Appointment Cardiology Natalie Payne, CORPORATE CONSULTANT [address] [place] [address] [facility] Start: 11-04-2017 Ambulatory 11/04/2017 Office Visit Orthopedic Surgery Linh Pat MD [address] [place] [address] [phone] [facility] Start: 10-19-2017 Ambulatory [facility] Start: 10-16-2017 Ambulatory 10/16/2017 Office Visit Cardiology Linh Pat MD [address] [place] [address] [phone] Angeli Moran MD [address] [place] [address] [phone] [facility] Start: 10-15-2017 [facility] Start: 10-12-2017 Ambulatory 10/12/2017 Hospital Encounter Nancy Shanks MD [address] [place] [address] [phone] [facility] Start: 10-09-2017 Ambulatory 10/09/2017 Office Visit General Surgery Nancy Shanks MD [address] [place] [address] [phone] [facility] Start: 10-08-2017 Ambulatory 10/08/2017 Office Visit Orthopedic Surgery Linh Pat MD [address] [place] [address] [phone] [facility] Start: 09-02-2017 Ambulatory 09/02/2017 Hospital Encounter Scott Espinosa, CORPORATE CONSULTANT [address] [place] [address] [phone] [facility] Start: 07-02-2017 Ambulatory 07/02/2017 Office Visit Orthopedic Surgery Scott Espinosa, CORPORATE CONSULTANT [address] [place] [address] [phone] Linh Pat MD [address] [place] [address] [phone] [facility] Start: 06-03-2017 Ambulatory 06/03/2017 Hospital Encounter Scott Espinosa, CORPORATE CONSULTANT [address] [place] [address] [phone] [facility] Start: 05-15-2017 Influenza vaccination SEQUENTIAL INFLUENZA VACCINE (#1) [facility] Work Phone: Start: 05-15-2017 SEQUENTIAL INFLUENZA VACCINE (#1) SEQUENTIAL INFLUENZA VACCINE (#1) [facility] Work Phone: Start: 05-07-2017 End: 05-07-2017 Ambulatory [facility] Start: 05-01-2017 Ambulatory 05/01/2017 Hospital Encounter Scott Espinosa, CORPORATE CONSULTANT [address] [place] [address] [phone] [facility] Start: 04-28-2017 Ambulatory 04/28/2017 Hospital Encounter Scott Espinosa CNP [address] [place] [address] [phone] [facility] Start: 2015 Administration of herpes zoster vaccine Zoster Vaccines (1 of 2) [facility] Start: 2015 Protein mass conc COLON CANCER SCREENING DISCUSSION [facility] Start: 2015 Screening for malignant neoplasm of colon [facility] Start: 2015 SHINGRIX VACCINE (1 of 2) SHINGRIX VACCINE (1 of 2) [facility] Start: 2015 Zoster vaccine hzv live for subcutaneous use ZOSTER (SHINGLES) VACCINE (1 of 2) [facility] Start: 2010 COLOGUARD (FIT-DNA) COLOGUARD (FIT-DNA) [facility] Start: 2010 Colonoscopy COLONOSCOPY [facility] Start: 2010 COLORECTAL CANCER SCREENING COLORECTAL CANCER SCREENING [facility] Start: [address] COLONOGRAPHY [facility] Start: 2010 FECAL OCCULT BLOOD FECAL OCCULT BLOOD [facility] Start: 2010 LIPID SCREEN LIPID SCREEN [facility] Start: 2010 Screening for malignant neoplasm of colon [facility] Start: 2010 SIGMOIDOSCOPY SIGMOIDOSCOPY [facility] Start: 2005 Mammography MAMMOGRAM [facility] Start: 2005 Protein mass conc MAMMOGRAM SCREENING DISCUSSION [facility] Start: 1995 HPV TESTING HPV TESTING [facility] Start: 1995 Screening for malignant neoplasm of cervix HPV/Cotest [facility] Start: 1986 PAP TESTING PAP TESTING [facility] Start: 1986 Screening for malignant neoplasm of cervix PAP SMEAR DISCUSSION [facility] Start: 1984 HEPATITIS B (1 of 3 - Risk 3-dose series) HEPATITIS B (1 of 3 - Risk 3-dose series) [facility] Start: 1984 Hepatitis B Vaccine (1 of 3 - 19+ 3-dose series) Hepatitis B Vaccine (1 of 3 - 19+ 3-dose series) [facility] Start: 1984 Pneumococcal Vaccine: 50+ (1 of 2 - PCV) Pneumococcal Vaccine: 50+ (1 of 2 - PCV) [facility] Start: 1984 Third diphtheria, tetanus and acellular pertussis (DTaP) vaccination TDAP (ADULT) [facility] Start: 1984 Urine microalbumin profile DTAP,TDAP,TD (1 - Tdap) [facility] Start: 1983 BP CONTROLLED (<130/80) BP CONTROLLED (<130/80) [facility] Start: 1983 Hepatitis B surface antibody level LDL CHOLESTEROL [facility] Start: 1983 Hepatitis C antibody, confirmatory test Hepatitis C Screening [facility] Start: 1983 Hepatitis C screening Hepatitis C Screening [facility] Start: 1983 HEPATITIS C SCREENING HEPATITIS C SCREENING [facility] Start: 1983 HIV SCREENING HIV SCREENING [facility] Start: 1983 HIV screening HIV Screening [facility] Start: 1983 Tetanus vaccination TETANUS [facility] Start: 1981 COVID-19 Vaccine (1 of 2) COVID-19 Vaccine (1 of 2) [facility] Start: 1981 COVID-19 Vaccine (1) COVID-19 Vaccine (1) [facility] Start: 1981 ONE PNEUMOVAX PRIOR TO AGE 65 ONE PNEUMOVAX PRIOR TO AGE 65 [facility] Start: 1980 HIV screening HIV Screening [facility] Start: 1978 HIV screening HIV SCREENING DISCUSSION [facility] Start: 1975 3 comp foot exam completed DIABETIC FOOT EXAM [facility] Start: 1975 Diabetic foot examination (regime/therapy) FOOT EXAM [facility] Start: 1975 Glaucoma screening [facility] Start: 1975 Hepatitis B screening URINE ALBUMIN:CREATININE RATIO [facility] Start: 1975 Hepatitis C antibody, confirmatory test DILATED RETINAL EXAM [facility] Start: 1975 Ophthalmic examination and evaluation OPHTHALMOLOGY EXAM [facility] Start: 1975 Urine, microalbumin URINE MICROALBUMIN [facility] Start: 1971 PNEUMOCOCCAL (1 - PCV) PNEUMOCOCCAL (1 - PCV) [facility] Start: 1971 Pneumococcal vaccination Pneumococcal Vaccine (1 of 2 - PCV) [facility] Start: 1971 Pneumococcal Vaccine: Ped or At-Risk (1 - PCV) Pneumococcal Vaccine: Ped or At-Risk (1 - PCV) [facility] Start: 1971 Pneumococcal Vaccine: Ped or At-Risk (1 of 2 - PCV) Pneumococcal Vaccine: Ped or At-Risk (1 of 2 - PCV) [facility] Start: 1971 Pneumococcal Vaccine: Ped or At-Risk (1 of 2 - PPSV23) Pneumococcal Vaccine: Ped or At-Risk (1 of 2 - PPSV23) [facility] Start: 1970 Hemoglobin A1c/Hemoglobin.total in Blood HBA1C [facility] Start: 1968 History and physical examination, annual for health maintenance Wellness Visit [facility] Start: 1968 Medicare Wellness Visit Medicare Wellness Visit [facility] Start: 1965 Colonoscopy COLONOSCOPY [facility] Work Phone: Start: 1965 Colonoscopy COLONOSCOPY [facility] Work Phone: Start: 1965 Cytopathology procedure, preparation of smear, genital source PAP SMEAR [facility] Work Phone: Start: 1965 HEPATITIS B (1 of 3 - 3-dose series) HEPATITIS B (1 of 3 - 3-dose series) [facility] Start: 1965 Hepatitis B Vaccine (1 of 3 - 3-dose series) Hepatitis B Vaccine (1 of 3 - 3-dose series) [facility] Start: 1965 Hepatitis C antibody, confirmatory test [facility] Start: 1965 HEPATITIS C SCREENING HEPATITIS C SCREENING [facility] Work Phone: Start: 1965 Microscopic observation Cyto stain Nom (Cvx) PAP SMEAR [facility] Work Phone: Start: 1965 Protein mass conc Mammogram [facility] Start: 1965 Screening colonoscopy COLONOSCOPY [facility] Work Phone: Start: 1965 Screening for malignant neoplasm of colon [facility] Start: 1965 Screening mammography Mammogram [facility] Start: 1965 TETANUS EVERY 10 YR TETANUS EVERY 10 YR [facility] Work Phone: Start: 1965 Tetanus vaccination TETANUS EVERY 10 YR [facility] Work Phone: End: 11-01-2020 Bacteria identified Aer cx Nom (Unsp spec) Urine Aerobic Culture Microbiology Routine Once for 1 Occurrences starting 11/01/2020 until 11/01/2020 [facility] Comment on above: Once for 1 Occurrences starting 11/01/19 21 until 11/01/2020 Bacteria identified Aer cx Nom (Unsp spec) Urine Aerobic Culture Microbiology Routine 11/01/2020 10:58 PM EST [facility] Bacteria identified in Wound by Culture WOUND CULTURE AND GRAM STAIN Microbiology Routine Ingrowing toenail with infection 05/26/2022 3:10 PM EDT [facility] Work Phone: End: 07-21-2019 Complete blood count with white cell differential, manual CBC and Differential Routine Type 2 diabetes mellitus with diabetic polyneuropathy, with long-term current use of insulin (HCC) 1 Occurrences starting 07/20/2018 until 07/21/2019 [facility] Comment on above: 1 Occurrences starting 07/20/2018 until 07/21/2019 End: 06-03-2022 Complete blood count with white cell differential, manual CBC and Differential Lab Routine Hypertension, unspecified type 1 Occurrences starting 06/03/2021 until 06/03/2022 [facility] Comment on above: 1 Occurrences starting 06/03/2021 until 06/03/2022 End: 07-21-2019 Comprehensive metabolic 2000 panel Comprehensive Metabolic Panel Routine Type 2 diabetes mellitus with diabetic polyneuropathy, with long-term current use of insulin (HCC) 1 Occurrences starting 07/20/2018 until 07/21/2019 [facility] Comment on above: 1 Occurrences starting 07/20/2018 until 07/21/2019 End: 12-29-2019 Comprehensive metabolic 2000 panel Comprehensive Metabolic Panel Routine Uncontrolled type 2 diabetes mellitus with hyperglycemia, with long-term current use of insulin (HCC) Hyperlipidemia, unspecified hyperlipidemia type 1 Occurrences starting 12/28/2018 until 12/29/2019 [facility] Comment on above: 1 Occurrences starting 12/28/2018 until 12/29/2019 End: 04-29-2020 Comprehensive metabolic 2000 panel Comprehensive Metabolic Panel Lab Routine Uncontrolled type 2 diabetes mellitus with hyperglycemia, with long-term current use of insulin (HCC) 1 Occurrences starting 04/29/2019 until 04/29/2020 [facility] Comment on above: 1 Occurrences starting 04/29/2019 until 04/29/2020 End: 08-05-2020 Comprehensive metabolic 2000 panel Comprehensive Metabolic Panel Lab Routine Uncontrolled type 2 diabetes mellitus with hyperglycemia, with long-term current use of insulin (HCC) 1 Occurrences starting 08/05/2019 until 08/05/2020 [facility] Comment on above: 1 Occurrences starting 08/05/2019 until 08/05/2020 End: 06-03-2022 Comprehensive metabolic 2000 panel - Serum or Plasma Comprehensive Metabolic Panel Lab Routine Hypertension, unspecified type 1 Occurrences starting 06/03/2021 until 06/03/2022 [facility] Work Phone: Comment on above: 1 Occurrences starting 06/03/2021 until 06/03/2022 Ct thorax w/o contra st material CT CHEST WO IVCON Radiology Routine Lung nodules 03/10/2022 1:19 PM EDT [facility] Work Phone: End: 08-28-2023 Ct thorax w/o contrast material CT CHEST WO IVCON Radiology Routine Lung nodules 1 Occurrences starting 07/29/2022 until 08/28/2023 [facility] Work Phone: Comment on above: 1 Occurrences starting 07/29/2022 until 08/28/2023 Ct thorax w/o contra st material CT CHEST WO IVCON Radiology Routine Lung nodules 09/22/2022 12:01 AM EST [facility] Work Phone: End: 07-21-2019 External Lab Microalbumin/Creatinin e External Lab Microalbumin/Creatinine Routine Type 2 diabetes mellitus with diabetic polyneuropathy, with long-term current use of insulin (HCC) 1 Occurrences starting 07/20/2018 until 07/21/2019 [facility] Comment on above: 1 Occurrences starting 07/20/2018 until 07/21/2019 End: 04-29-2020 External Lab Microalbumin/Creatinin e External Lab Microalbumin/Creatinine Lab Routine Uncontrolled type 2 diabetes mellitus with hyperglycemia, with long-term current use of insulin ([facility]) 1 Occurrences starting 04/29/2019 until 04/29/2020 [facility] Comment on above: 1 Occurrences starting 04/29/2019 until 04/29/2020 End: 08-05-2020 External Lab Microalbumin/Creatinin e External Lab Microalbumin/Creatinine Lab Routine Uncontrolled type 2 diabetes mellitus with hyperglycemia, with long-term current use of insulin (HCC) 1 Occurrences starting 08/05/2019 until 08/05/2020 [facility] Comment on above: 1 Occurrences starting 08/05/2019 until 08/05/2020 End: 04-29-2020 Free T4 [Mass/Vol] T4, Free Lab Routine Uncontrolled type 2 diabetes mellitus with hyperglycemia, with long-term current use of insulin (HCC) 1 Occurrences starting 04/29/2019 until 04/29/2020 [facility] Comment on above: 1 Occurrences starting 04/29/2019 until 04/29/2020 End: 08-05-2020 Free T4 [Mass/Vol] T4, Free Lab Routine Uncontrolled type 2 diabetes mellitus with hyperglycemia, with long-term current use of insulin (HCC) 1 Occurrences starting 08/05/2019 until 08/05/2020 [facility] Comment on above: 1 Occurrences starting 08/05/2019 until 08/05/2020 End: 04-29-2020 HbA1c (Bld) [Mass fraction] Hemoglobin A1c Lab Routine Uncontrolled type 2 diabetes mellitus with hyperglycemia, with long-term current use of insulin (HCC) 1 Occurrences starting 04/29/2019 until 04/29/2020 [facility] Comment on above: 1 Occurrences starting 04/29/2019 until 04/29/2020 End: 08-05-2020 HbA1c (Bld) [Mass fraction] Hemoglobin A1c Lab Routine Uncontrolled type 2 diabetes mellitus with hyperglycemia, with long-term current use of insulin (HCC) 1 Occurrences starting 08/05/2019 until 08/05/2020 [facility] Comment on above: 1 Occurrences starting 08/05/2019 until 08/05/2020 End: 06-03-2022 Hemoglobin A1c/Hemoglobin.total in Blood Hemoglobin A1c Lab Routine Uncontrolled type 2 diabetes mellitus with hyperglycemia (HCC) 1 Occurrences starting 06/03/2021 until 06/03/2022 [facility] Comment on above: 1 Occurrences starting 06/03/2021 until 06/03/2022 End: 12-29-2019 Hemoglobin A1c/Hemoglobin.total mass fraction (Bld) Hemoglobin A1c Routine Uncontrolled type 2 diabetes mellitus with hyperglycemia, with long-term current use of insulin (HCC) 1 Occurrences starting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 SENSOR devi1 device as directed.Disp: 3 eachRfl: 0 Prescriptions as of 01/26/2025 - OZEMPIC 1 mg/dose (4 mg/3 mL) pen Inject 1 mg subcutaneously one time a week. - dapagliflozin propanediol (FARXIGA) 10 mg tablet Take 1 tablet by mouth daily with breakfast. - insulin lispro (HUMALOG KWIKPEN INSULIN) 100 unit/mL Inject 35 Units subcutaneously three times a day before meals. If BS over 200 take 30 units. If BS is under 200 but greater than 150 take 25 units. - DEXCOM G7 SENSOR chris 1 device as directed. - atorvastatin (LIPITOR) 40 mg tablet Take 1 tablet by mouth every afternoon. - albuterol HFA (PROVENTIL HFA, VENTOLIN HFA) 90 mcg/actuation inhaler INHALE 2 PUFFS EVERY 4 HOURS NEEDED FOR WHEEZING or SHORTNESS OF BREATH - LANTUS SOLOSTAR U-100 INSULIN 100 unit/mL (3 mL) INJECT 50 UNITS SUBCUTANEOUSLY AT BEDTIME - metoprolol tartrate, short acting, (LOPRESSOR) 25 mg tablet Take 1 tablet by mouth two times a day. - gabapentin (NEURONTIN) 600 mg tablet Take 1 tablet by mouth daily at bedtime for 90 days. - lisinopril (ZESTRIL) 20 mg tablet TAKE 1 TABLET BY MOUTH ONCE DAILY - pantoprazole DR (PROTONIX) 40 mg tablet Take 1 tablet by mouth once daily. - Lancets (ACCU-CHEK FASTCLIX LANCET DRUM) lancets USE 1 LANCET TO CHECK BLOOD SUGAR THREE TIMES DAILY - CPAP/BIPAP/OTHER Type .CPAPSettings into a note to see current settings/supplies/DME information. - blood sugar diagnostic test strip Accu chek guide me test strips patient checks sugars 3 times daily Dx E11.42 - MULTI-VITAMIN ORAL Take 1 tablet by mouth once daily. - Blood-Glucose Meter (ACCU-CHEK GUIDE ME GLUCOSE MTR) patient checks sugars 3 times daily Dx E11.42 - aspirin 81 mg chewable tablet Take 81 mg by mouth. Problem List As Of Date 01/23/2025 Noted Resolved Obesity, Class II, BMI 35-39.9 [E66.812] 12/11/2021 Lung nodule [R91.1] 05/22/2020 Pain in both lower extremities [M79.604, M79.60*12/11/2021 Pneumonia due to severe acute respiratory syndr*12/11/2021 Anxiety [F41.9] 02/29/2020 Chest pain [R07.9] 12/11/2021 Chronic bilateral low back pain [M54.50, G89.29]11/02/2019 Chronic thoracic spine pain [M54.6, G89.29] 11/02/2019 Class 3 severe obesity with serious comorbidity*10/06/2018 03/23/2023 Dental caries [K02.9] 12/15/2020 Fibromyalgia [M79.7] 05/15/2017 Gastroesophageal reflux disease [K21.9] 05/10/2019 Hyperglycemia [R73.9] 12/11/2021 Hyperlipidemia, mixed [E78.2] 08/18/2018 Hypertension, essential [I10] 08/18/2018 Hypokalemia [E87.6] 12/11/2021 Lightheadedness [R42] 12/11/2021 Degenerative disc disease, cervical [M50.30] 12/17/2018 Mix (more content not included)... [facility] 01-19-2025 Note HNO ID: [id number] Author: ANGELI CHAN RN Service: ? Author Type: Registered Nurse Type: Progress Notes Filed: 01/19/2025 16:00 Note Text: [facility] CDM Enrollment Patient referred by: [facility] Winter Contact made with patient: Yes - Patient identified by name and . Discussed care with patient Mariam this is Angeli Chan, JEREMY and I am calling from Arianna Rosales APRN.CNP office at the [facility]. I am a RN Template Clerk with our [facility] Chronic Disease Management program. Arianna Rosales APRN.CNP wanted me to reach out to help you manage your health at home. Our goal is to keep you well at home. We want to help you manage your chronic disease by providing a safety net of resources around you, getting you the care you need in a timely manner, and hopefully keep you out of the ED and hospital. I will send you a few questions once a week through your [employer] account. It will automatically show up for you to complete. There are simple questions that will help us identify if you have any concerns or symptoms and I will call you to help get what you need. We will be able to connect you, review your symptoms, do an on demand visit, or communicate with Arianna Rosales APRN.CNP if needed. I am going to sign you up for the program now. Closing: PATIENT DECLINES - Thank you for your time today. I understand you are not interested participating in our program at this time. I will be sure to let your primary care doctor know we discussed your option to enroll in the program and that, for now, you have chosen to opt-out. If you decide at any time that you would like to be involved in the program, please let your primary care doctor know, and he/she can refer you back to our program. Angeli Chan, JEREMY [facility] 01-19-2025 History of Present illness Narrative [facility] CD[facility] Enrollment Patient referred by: [facility] Winter Contact made with patient: Yes - Patient identified by name and . Discussed care with patient Mariam this is Angeli Chan RN and I am calling from Arianna Rosales APRN.CNP office at the [facility]. I am a RN Template Clerk with our [facility] Chronic Disease Management program. Arianna Rosales APRN.CNP wanted me to reach out to help you manage your health at home. Our goal is to keep you well at home. We want to help you manage your chronic disease by providing a safety net of resources around you, getting you the care you need in a timely manner, and hopefully keep you out of the ED and hospital. I will send you a few questions once a week through your [employer] account. It will automatically show up for you to complete. There are simple questions that will help us identify if you have any concerns or symptoms and I will call you to help get what you need. We will be able to connect you, review your symptoms, do an on demand visit, or communicate with Arianna Rosales APRN.CNP if needed. I am going to sign you up for the program now. Closing: PATIENT DECLINES - Thank you for your time today. I understand you are not interested participating in our program at this time. I will be sure to let your primary care doctor know we discussed your option to enroll in the program and that, for now, you have chosen to opt-out. If you decide at any time that you would like to be involved in the program, please let your primary care doctor know, and he/she can refer you back to our program. Angeli Chan RN documented in this encounter [facility] 01-19-2025 Note Patient Outreach (AG ACM) JUANA HANDY V ([id number]) 1965 F Date Time Provider Department 01/19/25 ANGELI CHNA [facility] During your visit today, we recorded the following information about you: Angeli Chan RN 01/19/2025 4:00 PM Signed [facility] CDM Enrollment Patient referred by: [facility] Winter Contact made with patient: Yes - Patient identified by name and . Discussed care with patient Mariam this is Angeli Chan RN and I am calling from Arianna Rosales APRN.CNP office at the [facility]. I am a RN Template Clerk with our [facility] Chronic Disease Management program. Arianna Rosales APRN.CNP wanted me to reach out to help you manage your health at home. Our goal is to keep you well at home. We want to help you manage your chronic disease by providing a safety net of resources around you, getting you the care you need in a timely manner, and hopefully keep you out of the ED and hospital. I will send you a few questions once a week through your [employer] account. It will automatically show up for you to complete. There are simple questions that will help us identify if you have any concerns or symptoms and I will call you to help get what you need. We will be able to connect you, review your symptoms, do an on demand visit, or communicate with Arianna Rosales APRN.CNP if needed. I am going to sign you up for the program now. Closing: PATIENT DECLINES - Thank you for your time today. I understand you are not interested participating in our program at this time. I will be sure to let your primary care doctor know we discussed your option to enroll in the program and that, for now, you have chosen to opt-out. If you decide at any time that you would like to be involved in the program, please let your primary care doctor know, and he/she can refer you back to our program. 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 - LANTUS SOLOSTAR U-100 INSULIN 100 unit/mL (3 mL) INJECT 50 UNITS SUBCUTANEOUSLY AT BEDTIME - metoprolol tartrate, short acting, (LOPRESSOR) 25 mg tablet Take 1 tablet by mouth two times a day. - gabapentin (NEURONTIN) 600 mg tablet Take 1 tablet by mouth daily at bedtime for 90 days. - lisinopril (ZESTRIL) 20 mg tablet TAKE 1 TABLET BY MOUTH ONCE DAILY - insulin lispro (HUMALOG KWIKPEN INSULIN) 100 unit/mL Inject 35 Units subcutaneously three times a day before meals. If BS over 200 take 30 units. If BS is under 200 but greater than 150 take 25 units. - OZEMPIC 1 mg/dose (4 mg/3 mL) pen INJECT THE CONTENTS OF 1 PEN UNDER THE SKIN ONCE WEEKLY - pantoprazole DR (PROTONIX) 40 mg tablet Take 1 tablet by mouth once daily. - Lancets (ACCU-CHEK FASTCLIX LANCET DRUM) lancets USE 1 LANCET TO CHECK BLOOD SUGAR THREE TIMES DAILY - CPAP/BIPAP/OTHER Type .CPAPSettings into a note to see current settings/supplies/DME information. - dapagliflozin propanediol (FARXIGA) 10 mg tablet Take 1 tablet by mouth daily with breakfast. - blood sugar diagnostic test strip Accu chek guide me test strips patient checks sugars 3 times daily Dx E11.42 - MULTI-VITAMIN ORAL Take 1 tablet by mouth once daily. - Blood-Glucose Meter (ACCU-CHEK GUIDE ME GLUCOSE MTR) patient checks sugars 3 times daily Dx E11.42 - aspirin 81 mg chewable tablet Take 81 mg by mouth. Problem List As Of Date 01/19/2025 Noted Resolved Obesity, Class II, BMI 35-39.9 [E66.812] 12/11/2021 Lung nodule [R91.1] 05/22/2020 Pain in both lower extremities [M79.604, M79.60*12/11/2021 Pneumonia due to severe acute respiratory syndr*12/11/2021 Anxiety [F41.9] 02/29/2020 Chest pain [R07.9] 12/11/2021 Chronic bilateral low back pain [M54.50, G89.29]11/02/2019 Chronic thoracic spine pain [M54.6, G89.29] 11/02/2019 Class 3 severe obesity with serious comorbidity*10/06/2018 03/23/2023 Dental caries [K02.9] 12/15/2020 Fibromyalgia [M79.7] 05/15/2017 Gastroesophageal reflux disease [K21.9] 05/10/2019 Hyperglycemia [R73.9] 12/11/2021 Hyperlipidemia, mixed [E78.2] 08/18/2018 Hypertension, essential [I10] 08/18/2018 Hypokalemia [E87.6] 12/11/2021 Lightheadedness [R42] 12/11/2021 Degenerative disc disease, cervical [M50.30] 12/17/2018 Mixed anxiety depressive disorder [F41.8] 11/22/2019 Neuropathy [G62.9] 12/11 (more content not included)... [facility] 01-11-2025 Telephone encounter Note [place] full. Kristin Donaldson MA [facility] 01-11-2025 Miscellaneous Notes [place] full. Kristin Donaldson MA Mail box is full. Kristin Donaldson MA ----- Message from Arianna Rosales APRN.CORPORATE CONSULTANT sent at 01/04/2025 5:15 PM EDT ----- Please let the patient know that her mammogram was negative. Recheck in 1 year. ----- Message from Arianna Rosales APRN.CNP sent at 01/04/2025 5:15 PM EDT ----- Please let the patient know that her mammogram was negative. Recheck in 1 year. documented in this encounter [facility] 01-06-2025 Telephone encounter Note Mail box is full. Kristin Donaldson MA [facility] 01-06-2025 Telephone encounter Note ----- Message from Arianna Rosales APRN.CORPORATE CONSULTANT sent at 01/04/2025 5:15 PM EDT ----- Please let the patient know that her mammogram was negative. Recheck in 1 year. [facility] 01-04-2025 Telephone encounter Note ----- Message from Arianna Rosales APRN.CNP sent at 01/04/2025 5:15 PM EDT ----- Please let the patient know that her mammogram was negative. Recheck in 1 year. [facility] 01-03-2025 History of Present illness Narrative Radiology Service Progress Note PATIENT NAME: Juana Handy DATE OF SERVICE: January 03, 2025 TIME: 3:37 PM PATIENT IDENTITY VERIFICATION COMPLETED USING TWO (2) IDENTIFIERS: Name and Date of confirmed by patient verbally. FALL SCREENING: Has the patient had 2 falls in the last year or 1 fall with injury or currently using an Ambulatory Assistive Device (Walker, Cane, Wheelchair, Crutches, etc.)? No PATIENT GENDER DATA: Assigned female at . status: : No status: NO. PATIENT RELEVANT IMPLANT DATA REVIEWED: Not Applicable PATIENT PRESENTS WITH AN IMPLANTABLE OR ATTACHED DIRECTOR OF PUPIL PERSONNEL PROGRAM: No RADIOLOGY DEPARTMENT: Mammography PERIPHERAL IV DATA: Not applicable SIGNED BY: Tomás Fitzgerald January 03, 2025 3:37 PM documented in this encounter [facility] 01-03-2025 Note HNO ID: [id number] Author: ZEV MONACO Mammo Tech Service: ? Author Type: Technologist Type: Progress Notes Filed: 01/03/2025 15:37 Note Text: Radiology Service Progress Note PATIENT NAME: Juana Handy DATE OF SERVICE: January 03, 2025 TIME: 3:37 PM PATIENT IDENTITY VERIFICATION COMPLETED USING TWO (2) IDENTIFIERS: Name and Date of confirmed by patient verbally. FALL SCREENING: Has the patient had 2 falls in the last year or 1 fall with injury or currently using an Ambulatory Assistive Device (Walker, Cane, Wheelchair, Crutches, etc.)? No PATIENT GENDER DATA: Assigned female at . status: : No status: NO. PATIENT RELEVANT IMPLANT DATA REVIEWED: Not Applicable PATIENT PRESENTS WITH AN IMPLANTABLE OR ATTACHED DIRECTOR OF PUPIL PERSONNEL PROGRAM: No RADIOLOGY DEPARTMENT: Mammography PERIPHERAL IV DATA: Not applicable SIGNED BY: Tomás Fitzgerald January 03, 2025 3:37 PM [facility] 01-02-2025 Note HNO ID: [id number] Author: MARU HO RN Service: ? Author Type: Registered Nurse Type: Progress Notes Filed: 01/02/2025 13:54 Note Text: [facility] POPULATION HEALTH NAVIGATION OUTREACH Action/FYI Patient Identified by Name and : Yes, via phone Reason for Outreach Care Gap or Scheduling Wellness Visits HCC or suspected conditions Care Gap Reviewed:: Annual Wellness visit Outreach Outcome/Action Unable to reach patient: Phone number not valid / voicemail full MyChart message sent Population Health Navigation Workflow Chart Review Payer: [facility] Navigation Signature: Maru Ho RN January 02, 2025 1:48 PM [facility] 01-02-2025 History of Present illness Narrative [facility] POPULATION HEALTH NAVIGATION OUTREACH Action/FYI Patient Identified by Name and : Yes, via phone Reason for Outreach Care Gap or Scheduling Wellness Visits HCC or suspected conditions Care Gap Reviewed:: Annual Wellness visit Outreach Outcome/Action Unable to reach patient: Phone number not valid / voicemail full MyChart message sent Population Health Navigation Workflow Chart Review Payer: [facility] Navigation Signature: Maru Ho RN January 02, 2025 1:48 PM documented in this encounter [facility] 01-02-2025 Note Patient Outreach (AG FAMPLE) JUANA HANDY V ([id number]) 1965 F Date Time Provider Department 01/02/25 MARU HO During your visit today, we recorded the following information about you: Maru Ho RN 01/02/2025 1:54 PM Signed [facility] POPULATION HEALTH NAVIGATION OUTREACH Action/FYI Patient Identified by Name and : Yes, via phone Reason for Outreach Care Gap or Scheduling Wellness Visits HCC or suspected conditions Care Gap Reviewed:: Annual Wellness visit Outreach Outcome/Action Unable to reach patient: Phone number not valid / voicemail full Cater to u message sent Population Health Navigation Workflow Chart Review Payer: [facility] Navigation Signature: Maru Ho RN January 02, 2025 1:48 PM Allergies As of Date: 01/02/2025 Noted Allergy Reaction LAVENDER (LAVANDULA ANGUSTIFOLIA) 01/06/2022 2 - Rash METFORMIN 01/06/2022 8 - GI Upset LATEX 09/29/2017 2 - Rash Date Reviewed: 08/30/2024 Reviewed by: Arianna Rosales APRN.CORPORATE CONSULTANT - Fully Assessed Reason for Visit: Population Health Navigation Outreach [3910] Cmt: [facility] Attributed Member - Chart Review Prescriptions as of 01/02/2025 - albuterol HFA (PROVENTIL HFA, VENTOLIN HFA) 90 mcg/actuation inhaler INHALE 2 PUFFS EVERY 4 HOURS NEEDED FOR WHEEZING or SHORTNESS OF BREATH - atorvastatin (LIPITOR) 40 mg tablet TAKE 1 TABLET BY MOUTH ONCE DAILY - DEXCOM G7 SENSOR chris as directed. - LANTUS SOLOSTAR U-100 INSULIN 100 unit/mL (3 mL) INJECT 50 UNITS SUBCUTANEOUSLY AT BEDTIME - metoprolol tartrate, short acting, (LOPRESSOR) 25 mg tablet Take 1 tablet by mouth two times a day. - gabapentin (NEURONTIN) 600 mg tablet Take 1 tablet by mouth daily at bedtime for 90 days. - lisinopril (ZESTRIL) 20 mg tablet TAKE 1 TABLET BY MOUTH ONCE DAILY - insulin lispro (HUMALOG KWIKPEN INSULIN) 100 unit/mL Inject 35 Units subcutaneously three times a day before meals. If BS over 200 take 30 units. If BS is under 200 but greater than 150 take 25 units. - OZEMPIC 1 mg/dose (4 mg/3 mL) pen INJECT THE CONTENTS OF 1 PEN UNDER THE SKIN ONCE WEEKLY - pantoprazole DR (PROTONIX) 40 mg tablet Take 1 tablet by mouth once daily. - Lancets (ACCU-CHEK FASTCLIX LANCET DRUM) lancets USE 1 LANCET TO CHECK BLOOD SUGAR THREE TIMES DAILY - CPAP/BIPAP/OTHER Type .CPAPSettings into a note to see current settings/supplies/DME information. - dapagliflozin propanediol (FARXIGA) 10 mg tablet Take 1 tablet by mouth daily with breakfast. - blood sugar diagnostic test strip Accu chek guide me test strips patient checks sugars 3 times daily Dx E11.42 - MULTI-VITAMIN ORAL Take 1 tablet by mouth once daily. - Blood-Glucose Meter (ACCU-CHEK GUIDE ME GLUCOSE MTR) patient checks sugars 3 times daily Dx E11.42 - aspirin 81 mg chewable tablet Take 81 mg by mouth. Problem List As Of Date 01/02/2025 Noted Resolved Obesity, Class II, BMI 35-39.9 [E66.812] 12/11/2021 Lung nodule [R91.1] 05/22/2020 Pain in both lower extremities [M79.604, M79.60*12/11/2021 Pneumonia due to severe acute respiratory syndr*12/11/2021 Anxiety [F41.9] 02/29/2020 Chest pain [R07.9] 12/11/2021 Chronic bilateral low back pain [M54.50, G89.29]11/02/2019 Chronic thoracic spine pain [M54.6, G89.29] 11/02/2019 Class 3 severe obesity with serious comorbidity*10/06/2018 03/23/2023 Dental caries [K02.9] 12/15/2020 Fibromyalgia [M79.7] 05/15/2017 Gastroesophageal reflux disease [K21.9] 05/10/2019 Hyperglycemia [R73.9] 12/11/2021 Hyperlipidemia, mixed [E78.2] 08/18/2018 Hypertension, essential [I10] 08/18/2018 Hypokalemia [E87.6] 12/11/2021 Lightheadedness [R42] 12/11/2021 Degenerative disc disease, cervical [M50.30] 12/17/2018 Mixed anxiety depressive disorder [F41.8] 11/22/2019 Neuropathy [G62.9] 12/11/2021 Neuropathy involving both lower extremities [G5*11/26/2017 Neuropathy of lower extremity [G57.90] 11/26/2017 Pain [R52] 12/11/2021 Painful mouth [K13.79] 12/15/2020 Primary osteoarthritis of both knees [M17.0] 12/11/2021 Pulmonary nodule, left [R91.1] 05/22/2020 History of cervical spinal arthrodesis [Z98.1] 05/26/2018 History of lumbar fusion [Z98.1] 12/11/2021 Spinal stenosis of lumbar region without neurog*11/04/2017 Type 2 diabetes mellitus without complication, *05/05/2018 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] 12/11/2021 Uncontrolled type 2 diabetes mellitus [[id number]] 11/26/2017 Swelling of toe of right foot [M79.89] 01/17/2024 Cellulitis of third toe of right foot [L03.031] 01/17/2024 Osteomyelitis of right foot (HCC) [M86.9] 01/20/2024 Paroxysmal nocturnal dyspnea [R06.00] 01/21/2024 Diabetic polyneuropathy associated with type 2 *01/21/2024 Full code status [Z78.9] 01/21/2024 Encounter Status:Closed by MARU HO on 01/02/25 [facility] 10-17-2024 Note HNO ID: [id number] Author: MARU HO RN Service: ? Author Type: Registered Nurse Type: Progress Notes Filed: 10/17/2024 15:22 Note Text: [facility] POPULATION HEALTH NAVIGATION OUTREACH Action/2016 Colonoscopy uploaded to [facility] for 2024 2024 DM Eye uploaded to [facility] for 2024 Medicare Wellness Exam needs scheduled Patient Identified by Name and : Yes, via phone Reason for Outreach Care Gap or Scheduling Wellness Visits HCC or suspected conditions Med Adherence SUPD Care Gap Reviewed:: Annual Wellness visit Breast Cancer screening Colorectal Cancer Screening Diabetic Eye Exam HBA1C/GMI KED (UACR/eGFR) Outreach Outcome/Action Unable to reach patient: Left message MyChart message sent Population Health Navigation Workflow Chart Review Cute PDF and Portal Submission Pre-Visit Planning Payer: [facility] Navigation Signature: Maru Ho RN October 17, 2024 3:01 PM [facility] 10-17-2024 History of Present illness Narrative [facility] POPULATION HEALTH NAVIGATION OUTREACH Action/2016 Colonoscopy uploaded to [facility] for 2024 2024 DM Eye uploaded to [facility] for 2024 Medicare Wellness Exam needs scheduled Patient Identified by Name and : Yes, via phone Reason for Outreach Care Gap or Scheduling Wellness Visits HCC or suspected conditions Med Adherence SUPD Care Gap Reviewed:: Annual Wellness visit Breast Cancer screening Colorectal Cancer Screening Diabetic Eye Exam HBA1C/GMI KED (UACR/eGFR) Outreach Outcome/Action Unable to reach patient: Left message MyChart message sent Population Health Navigation Workflow Chart Review Cute PDF and Portal Submission Pre-Visit Planning Payer: [facility] Navigation Signature: Maru Ho RN October 17, 2024 3:01 PM documented in this encounter [facility] 10-17-2024 Note Patient Outreach (AG FAMPLE) JUANA HANDY V ([id number]) 1965 F Date Time Provider Department 10/17/24 MARU HO During your visit today, we recorded the following information about you: Maru Ho RN 10/17/2024 3:22 PM Signed [facility] POPULATION HEALTH NAVIGATION OUTREACH Action/2016 Colonoscopy uploaded to [facility] for 2024 2024 DM Eye uploaded to [facility] for 2024 Medicare Wellness Exam needs scheduled Patient Identified by Name and : Yes, via phone Reason for Outreach Care Gap or Scheduling Wellness Visits HCC or suspected conditions Med Adherence SUPD Care Gap Reviewed:: Annual Wellness visit Breast Cancer screening Colorectal Cancer Screening Diabetic Eye Exam HBA1C/GMI KED (UACR/eGFR) Outreach Outcome/Action Unable to reach patient: Left message [employer] message sent Population Health Navigation Workflow Chart Review Cute PDF and Portal Submission Pre-Visit Planning Payer: [facility] Navigation Signature: Maru Ho RN October 17, 2024 3:01 PM Allergies As of Date: 10/17/2024 Noted Allergy Reaction LAVENDER (LAVANDULA ANGUSTIFOLIA) 01/06/2022 2 - Rash METFORMIN 01/06/2022 8 - GI Upset LATEX 09/29/2017 2 - Rash Date Reviewed: 08/30/2024 Reviewed by: Arianna Rosales APRN.CORPORATE CONSULTANT - Fully Assessed Prescriptions as of 10/17/2024 - albuterol HFA (PROVENTIL HFA, VENTOLIN HFA) 90 mcg/actuation inhaler INHALE 2 PUFFS EVERY 4 HOURS NEEDED FOR WHEEZING or SHORTNESS OF BREATH - atorvastatin (LIPITOR) 40 mg tablet TAKE 1 TABLET BY MOUTH ONCE DAILY - DEXCOM G7 SENSOR chris as directed. - LANTUS SOLOSTAR U-100 INSULIN 100 unit/mL (3 mL) INJECT 50 UNITS SUBCUTANEOUSLY AT BEDTIME - metoprolol tartrate, short acting, (LOPRESSOR) 25 mg tablet Take 1 tablet by mouth two times a day. - gabapentin (NEURONTIN) 600 mg tablet Take 1 tablet by mouth daily at bedtime for 90 days. - lisinopril (ZESTRIL) 20 mg tablet TAKE 1 TABLET BY MOUTH ONCE DAILY - insulin lispro (HUMALOG KWIKPEN INSULIN) 100 unit/mL Inject 35 Units subcutaneously three times a day before meals. If BS over 200 take 30 units. If BS is under 200 but greater than 150 take 25 units. - OZEMPIC 1 mg/dose (4 mg/3 mL) pen INJECT THE CONTENTS OF 1 PEN UNDER THE SKIN ONCE WEEKLY - pantoprazole DR (PROTONIX) 40 mg tablet Take 1 tablet by mouth once daily. - Lancets (ACCU-CHEK FASTCLIX LANCET DRUM) lancets USE 1 LANCET TO CHECK BLOOD SUGAR THREE TIMES DAILY - CPAP/BIPAP/OTHER Type .CPAPSettings into a note to see current settings/supplies/DME information. - dapagliflozin propanediol (FARXIGA) 10 mg tablet Take 1 tablet by mouth daily with breakfast. - blood sugar diagnostic test strip Accu chek guide me test strips patient checks sugars 3 times daily Dx E11.42 - MULTI-VITAMIN ORAL Take 1 tablet by mouth once daily. - Blood-Glucose Meter (ACCU-CHEK GUIDE ME GLUCOSE MTR) patient checks sugars 3 times daily Dx E11.42 - aspirin 81 mg chewable tablet Take 81 mg by mouth. Problem List As Of Date 10/17/2024 Noted Resolved Obesity, Class II, BMI 35-39.9 [E66.812] 12/11/2021 Lung nodule [R91.1] 05/22/2020 Pain in both lower extremities [M79.604, M79.60*12/11/2021 Pneumonia due to severe acute respiratory syndr*12/11/2021 Anxiety [F41.9] 02/29/2020 Chest pain [R07.9] 12/11/2021 Chronic bilateral low back pain [M54.50, G89.29]11/02/2019 Chronic thoracic spine pain [M54.6, G89.29] 11/02/2019 Class 3 severe obesity with serious comorbidity*10/06/2018 03/23/2023 Dental caries [K02.9] 12/15/2020 Fibromyalgia [M79.7] 05/15/2017 Gastroesophageal reflux disease [K21.9] 05/10/2019 Hyperglycemia [R73.9] 12/11/2021 Hyperlipidemia, mixed [E78.2] 08/18/2018 Hypertension, essential [I10] 08/18/2018 Hypokalemia [E87.6] 12/11/2021 Lightheadedness [R42] 12/11/2021 Degenerative disc disease, cervical [M50.30] 12/17/2018 Mixed anxiety depressive disorder [F41.8] 11/22/2019 Neuropathy [G62.9] 12/11/2021 Neuropathy involving both lower extremities [G5*11/26/2017 Neuropathy of lower extremity [G57.90] 11/26/2017 Pain [R52] 12/11/2021 Painful mouth [K13.79] 12/15/2020 Primary osteoarthritis of both knees [M17.0] 12/11/2021 Pulmonary nodule, left [R91.1] 05/22/2020 History of cervical spinal arthrodesis [Z98.1] 05/26/2018 History of lumbar fusion [Z98.1] 12/11/2021 Spinal stenosis of lumbar region without neurog*11/04/2017 Type 2 diabetes mellitus without complication, *05/05/2018 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] 12/11/2021 Uncontrolled type 2 diabetes mellitus [[id number]] 11/26/2017 Swelling of toe of right foot [M79.89] 01/17/2024 Cellulitis of third toe of right foot [L03.031] 01/17/2024 Osteomyelitis of right foot (HCC) [M86.9] 01/20/2024 Paroxysmal nocturnal dyspnea [R06.00] 01/21/2024 Diabetic polyneuropathy associated with type 2 *01/21/2024 Full code status [Z78.9] 01/21/2024 Enc (more content not included)... [facility] 09-20-2024 Note HNO ID: [id number] Author: ANGELI PENA, ? Service: ? Author Type: ? Type: Progress Notes Filed: 09/23/2024 11:20 Note Text: [facility] POPULATION HEALTH NAVIGATION OUTREACH Action/FYI I called Dr Nancy Shanks, Tel [phone], to see when patient last had colonoscopy completed 2016. Facility unable to fax record. Uploaded what we have. DM Eye 2023 and 2024 uploaded, in same document I called [facility] in [place], , to see if patient completed DM eye exam. Exams done 09-19-2024 AND 11-18-2023. Requested office to fax record to [facility] Population Health Navigation, fax [phone], to be added to [facility] chart. Once records are received, they will be faxed to [facility] Medical Records to be scanned into [facility] and faxed to PCP for review. Patient Identified by Name and : Yes, via EPIC - no outreach needed Reason for Outreach Care Gap or Scheduling Wellness Visits Care Gap Reviewed:: Colorectal Cancer Screening Outreach Outcome/Action Population Health Navigation Workflow Cute PDF and Portal Submission Request Records Payer: [facility] Navigation Signature: Angeli Pena September 20, 2024 10:40 AM [facility] 09-20-2024 History of Present illness Narrative [facility] POPULATION HEALTH NAVIGATION OUTREACH Action/I I called Dr Nancy Shanks, Tel [phone], to see when patient last had colonoscopy completed 2016. Facility unable to fax record. Uploaded what we have. Patient Identified by Name and : Yes, via EPIC - no outreach needed Reason for Outreach Care Gap or Scheduling Wellness Visits Care Gap Reviewed:: Colorectal Cancer Screening Outreach Outcome/Action Population Health Navigation Workflow Cute PDF and Portal Submission Payer: [facility] Navigation Signature: Angeli Pena September 20, 2024 10:40 AM documented in this encounter [facility] 09-20-2024 Note Patient Outreach (AG ACM) JUANA HANDY V ([id number]) 1965 F Date Time Provider Department 09/20/24 ANGELI PENA [facility] During your visit today, we recorded the following information about you: Angeli Pena 09/23/2024 11:20 AM Addendum [facility] POPULATION HEALTH NAVIGATION OUTREACH Action/FYI I called Dr Nancy Shanks, Tel [phone], to see when patient last had colonoscopy completed 2016. Facility unable to fax record. Uploaded what we have. DM Eye 2023 and 2024 uploaded, in same document I called [facility] in [place], , to see if patient completed DM eye exam. Exams done 09-19-2024 AND 11-18-2023. Requested office to fax record to [facility] Population Health Navigation, fax [phone], to be added to [facility] chart. Once records are received, they will be faxed to [facility] Medical Records to be scanned into [facility] and faxed to PCP for review. Patient Identified by Name and : Yes, via EPIC - no outreach needed Reason for Outreach Care Gap or Scheduling Wellness Visits Care Gap Reviewed:: Colorectal Cancer Screening Outreach Outcome/Action Population Health Navigation Workflow Cute PDF and Portal Submission Request Records Payer: [facility] Navigation Signature: Angeli Pena September 20, 2024 10:40 AM Allergies As of Date: 09/20/2024 Noted Allergy Reaction LAVENDER (LAVANDULA ANGUSTIFOLIA) 01/06/2022 2 - Rash METFORMIN 01/06/2022 8 - GI Upset LATEX 09/29/2017 2 - Rash Date Reviewed: 08/30/2024 Reviewed by: Arianna Rosales APRN.CORPORATE CONSULTANT - Fully Assessed Reason for Visit: Population Health Navigation Outreach [[id number]] Cmt: [facility] Attributed Member - Chart Review Prescriptions as of 09/23/2024 - albuterol HFA (PROVENTIL HFA, VENTOLIN HFA) 90 mcg/actuation inhaler INHALE 2 PUFFS EVERY 4 HOURS NEEDED FOR WHEEZING or SHORTNESS OF BREATH - atorvastatin (LIPITOR) 40 mg tablet TAKE 1 TABLET BY MOUTH ONCE DAILY - DEXCOM G7 SENSOR chris as directed. - LANTUS SOLOSTAR U-100 INSULIN 100 unit/mL (3 mL) INJECT 50 UNITS SUBCUTANEOUSLY AT BEDTIME - metoprolol tartrate, short acting, (LOPRESSOR) 25 mg tablet Take 1 tablet by mouth two times a day. - gabapentin (NEURONTIN) 600 mg tablet Take 1 tablet by mouth daily at bedtime for 90 days. - lisinopril (ZESTRIL) 20 mg tablet TAKE 1 TABLET BY MOUTH ONCE DAILY - insulin lispro (HUMALOG KWIKPEN INSULIN) 100 unit/mL Inject 35 Units subcutaneously three times a day before meals. If BS over 200 take 30 units. If BS is under 200 but greater than 150 take 25 units. - OZEMPIC 1 mg/dose (4 mg/3 mL) pen INJECT THE CONTENTS OF 1 PEN UNDER THE SKIN ONCE WEEKLY - pantoprazole DR (PROTONIX) 40 mg tablet Take 1 tablet by mouth once daily. - Lancets (ACCU-CHEK FASTCLIX LANCET DRUM) lancets USE 1 LANCET TO CHECK BLOOD SUGAR THREE TIMES DAILY - CPAP/BIPAP/OTHER Type .CPAPSettings into a note to see current settings/supplies/DME information. - dapagliflozin propanediol (FARXIGA) 10 mg tablet Take 1 tablet by mouth daily with breakfast. - blood sugar diagnostic test strip Accu chek guide me test strips patient checks sugars 3 times daily Dx E11.42 - MULTI-VITAMIN ORAL Take 1 tablet by mouth once daily. - Blood-Glucose Meter (ACCU-CHEK GUIDE ME GLUCOSE MTR) patient checks sugars 3 times daily Dx E11.42 - aspirin 81 mg chewable tablet Take 81 mg by mouth. Problem List As Of Date 09/20/2024 Noted Resolved Obesity, Class II, BMI 35-39.9 [E66.812] 12/11/2021 Lung nodule [R91.1] 05/22/2020 Pain in both lower extremities [M79.604, M79.60*12/11/2021 Pneumonia due to severe acute respiratory syndr*12/11/2021 Anxiety [F41.9] 02/29/2020 Chest pain [R07.9] 12/11/2021 Chronic bilateral low back pain [M54.50, G89.29]11/02/2019 Chronic thoracic spine pain [M54.6, G89.29] 11/02/2019 Class 3 severe obesity with serious comorbidity*10/06/2018 03/23/2023 Dental caries [K02.9] 12/15/2020 Fibromyalgia [M79.7] 05/15/2017 Gastroesophageal reflux disease [K21.9] 05/10/2019 Hyperglycemia [R73.9] 12/11/2021 Hyperlipidemia, mixed [E78.2] 08/18/2018 Hypertension, essential [I10] 08/18/2018 Hypokalemia [E87.6] 12/11/2021 Lightheadedness [R42] 12/11/2021 Degenerative disc disease, cervical [M50.30] 12/17/2018 Mixed anxiety depressive disorder [F41.8] 11/22/2019 Neuropathy [G62.9] 12/11/2021 Neuropathy involving both lower extremities [G5*11/26/2017 Neuropathy of lower extremity [G57.90] 11/26/2017 Pain [R52] 12/11/2021 Painful mouth [K13.79] 12/15/2020 Primary osteoarthritis of both knees [M17.0] 12/11/2021 Pulmonary nodule, left [R91.1] 05/22/2020 History of cervical spinal arthrodesis [Z98.1] 05/26/2018 History of lumbar fusion [Z98.1] 12/11/2021 Spinal stenosis of lumbar region without neurog*11/04/2017 Type 2 diabetes mellitus without complication, *05/05/2018 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] 12/11/2021 Count Includes [facility] (more content not included)... [facility] 09-19-2024 Telephone encounter Note pharm requesting refills: Last office visit 08/30/2024. Last refill 10/08/2023. Requested Prescriptions Pending Prescriptions Disp Refills albuterol HFA (PROVENTIL HFA, VENTOLIN HFA) 90 mcg/actuation inhaler [Pharmacy Med Name: albuterol sulfate HFA 90 mcg/actuation aerosol inhaler] 8.5 g 1 Sig: INHALE 2 PUFFS EVERY 4 HOURS NEEDED FOR WHEEZING or SHORTNESS OF BREATH Please review and advise. Kristin Donaldson MA [facility] 09-19-2024 Miscellaneous Notes pharm requesting refills: Last office visit 08/30/2024. Last refill 10/08/2023. Requested Prescriptions Pending Prescriptions Disp Refills albuterol HFA (PROVENTIL HFA, VENTOLIN HFA) 90 mcg/actuation inhaler [Pharmacy Med Name: albuterol sulfate HFA 90 mcg/actuation aerosol inhaler] 8.5 g 1 Sig: INHALE 2 PUFFS EVERY 4 HOURS NEEDED FOR WHEEZING or SHORTNESS OF BREATH Please review and advise. Kristin Donaldson MA documented in this encounter [facility] 09-12-2024 Telephone encounter Note pharm requesting refills: Last office visit 08/30/2024. Last refill 10/08/2023 . Requested Prescriptions Pending Prescriptions Disp Refills atorvastatin (LIPITOR) 40 mg tablet [Pharmacy Med Name: atorvastatin 40 mg tablet] 90 tablet 1 Sig: TAKE 1 TABLET BY MOUTH ONCE DAILY Please review and advise. Kristin Donaldson MA [facility] 09-12-2024 Miscellaneous Notes pharm requesting refills: Last office visit 08/30/2024. Last refill 10/08/2023 . Requested Prescriptions Pending Prescriptions Disp Refills atorvastatin (LIPITOR) 40 mg tablet [Pharmacy Med Name: atorvastatin 40 mg tablet] 90 tablet 1 Sig: TAKE 1 TABLET BY MOUTH ONCE DAILY Please review and advise. Kristin Donaldson MA documented in this encounter [facility] 08-30-2024 Note HNO ID: [id number] Author: ARIANNA ROSALES APRN.CORPORATE CONSULTANT Service: ? Author Type: Nurse Practitioner Type: Progress Notes Filed: 09/11/2024 19:30 Note Text: CHIEF COMPLAINT: Juana Handy is a 59 year old female who presents for 6 month follow up for HTN. I reviewed past medical, surgical, social, and family histories today and updated chart. Allergies, chronic medications, and supplements were also reviewed. She does not check her BP at home. Denies any CP, SOB, dizziness, palpitations. Since her last OV in December, she had her third right toe removed due to osteomyelitis most likely secondary to uncontrolled DM and neuropathy She is still following with podiatry She hasn't seen Dr. Valadez in awhile for her DM BS 178 currently Hasn't eaten today BS 278 this morning fasting but still gave herself her meal time insulin BS dropped within 5-10 minutes to 250 She is taking 50 units every time when she eats BS has dropped to 56 before, about 30 minutes after she took her insulin BS dropped from 150 to 123 while in office Last shot was at 10:30 this morning but hasn't eaten anything OV 01/05/24: Juana Handy is a 58 year old female who presents for F/U HTN 3 Month. I reviewed past medical, surgical, social, and family histories today and updated chart. Allergies, chronic medications, and supplements were also reviewed. Right middle toe still sore on the tip of her toe. It is no longer open but it is still red and swollen. Completed course of Keflex in September but hasn't follow up since there. Painful. No fevers. Diabetic shoes ordered from podiatry. Order faxed to [facility] to [place]. She does not check her BP regularly at home. Denies any CP, SOB, dizziness, palpitations. She follows with Endo for her diabetes (Dr. Abraham Valadez in [place]) but she is confused about her insulin directions. She has different directions on her paperwork from what is on the medication from the pharmacy. PAST MEDICAL HISTORY Diagnosis Date Diabetes mellitus (HCC) Essential hypertension Fibromyalgia High cholesterol PAST SURGICAL HISTORY Procedure Laterality Date BACK SURGERY HX Social History Tobacco Use Smoking status: Never Smokeless tobacco: Never Vaping Use Vaping status: Never Used Substance Use Topics Alcohol use: Never Drug use: Never ALLERGIES Allergen Reactions Lavender (Lavandula* Rash Metformin GI Upset Latex Rash Family History Problem Relation Age of Onset Diabetes Brother Current Outpatient Medications Medication Sig Dispense Refill DEXCOM G7 SENSOR chris as directed. LANTUS SOLOSTAR U-100 INSULIN 100 unit/mL (3 mL) INJECT 50 UNITS SUBCUTANEOUSLY AT BEDTIME gabapentin (NEURONTIN) 600 mg tablet Take 1 tablet by mouth daily at bedtime for 90 days. 30 tablet 2 lisinopril (ZESTRIL) 20 mg tablet TAKE 1 TABLET BY MOUTH ONCE DAILY 90 tablet 1 insulin lispro (HUMALOG KWIKPEN INSULIN) 100 unit/mL Inject 35 Units subcutaneously three times a day before meals. If BS over 200 take 30 units. If BS is under 200 but greater than 150 take 25 units. OZEMPIC 1 mg/dose (4 mg/3 mL) pen INJECT THE CONTENTS OF 1 PEN UNDER THE SKIN ONCE WEEKLY atorvastatin (LIPITOR) 40 mg tablet Take 1 tablet by mouth once daily. [address] (PROTONIX) 40 mg tablet Take 1 tablet by mouth once daily. 90 tablet 1 Lancets (ACCU-CHEK FASTCLIX LANCET DRUM) lancets USE 1 LANCET TO CHECK BLOOD SUGAR THREE TIMES DAILY 120 Each 2 albuterol HFA (PROAIR HFA) 90 mcg/actuation inhaler Inhale 2 Puffs as instructed every 4 hours as needed for wheezing/shortness of breath. 1 Each 2 CPAP/BIPAP/OTHER Type .CPAPSettings into a note to see current settings/supplies/DME information. 1 Each 0 dapagliflozin propanediol (FARXIGA) 10 mg tablet Take 1 tablet by mouth daily with breakfast. 30 tablet 2 blood sugar diagnostic test strip Accu chek guide me test strips patient checks sugars 3 times daily Dx E11.42 100 Each 1 MULTI-VITAMIN ORAL Take 1 tablet by mouth once daily. Blood-Glucose Meter (ACCU-CHEK GUIDE ME GLUCOSE MTR) patient checks sugars 3 times daily Dx E11.42 1 Each 0 aspirin 81 mg chewable tablet Take 81 mg by mouth. metoprolol tartrate, short acting, (LOPRESSOR) 25 mg tablet Take 1 tablet by mouth two times a day. 180 tablet 1 No current facility-administered medications for this visit. Review of Systems Constitutional: Negative for chills, diaphoresis, fatigue, fever and unexpected weight change. HENT: Negative. Eyes: Negative. Respiratory: Positive for apnea. Negative for cough, chest tightness, shortness of breath and wheezing. Cardiovascular: Negative for chest pain, palpitations and leg swelling. Gastrointestinal: Negative for abdominal pain, constipation, diarrhea, nausea and vomiting. Endocrine: Negative. Genitourinary: Negative. Musculoskeletal: Positive for arthralgias, back pain and myalgias. Negative for gait problem, joint swelling, (more content not included)... [facility] 08-30-2024 History of Present illness Narrative Images from the original note were not included. CHIEF COMPLAINT: Juana Handy is a 59 year old female who presents for 6 month follow up for HTN. I reviewed past medical, surgical, social, and family histories today and updated chart. Allergies, chronic medications, and supplements were also reviewed. She does not check her BP at home. Denies any CP, SOB, dizziness, palpitations. Since her last OV in December, she had her third right toe removed due to osteomyelitis most likely secondary to uncontrolled DM and neuropathy She is still following with podiatry She hasn't seen Dr. Valadez in [facility] for her DM BS 178 currently Hasn't eaten today BS 278 this morning fasting but still gave herself her meal time insulin BS dropped within 5-10 minutes to 250 She is taking 50 units every time when she eats BS has dropped to 56 before, about 30 minutes after she took her insulin BS dropped from 150 to 123 while in office Last shot was at 10:30 this morning but hasn't eaten anything OV 01/05/24: Juana Handy is a 58 year old female who presents for F/U HTN 3 Month. I reviewed past medical, surgical, social, and family histories today and updated chart. Allergies, chronic medications, and supplements were also reviewed. Right middle toe still sore on the tip of her toe. It is no longer open but it is still red and swollen. Completed course of Keflex in September but hasn't follow up since there. Painful. No fevers. Diabetic shoes ordered from podiatry. Order faxed to [facility] to [place]. She does not check her BP regularly at home. Denies any CP, SOB, dizziness, palpitations. She follows with Endo for her diabetes (Dr. Abraham Valadez in [place]) but she is confused about her insulin directions. She has different directions on her paperwork from what is on the medication from the pharmacy. PAST MEDICAL HISTORY Diagnosis Date Diabetes mellitus (HCC) Essential hypertension Fibromyalgia High cholesterol PAST SURGICAL HISTORY Procedure Laterality Date BACK SURGERY HX Social History Tobacco Use Smoking status: Never Smokeless tobacco: Never Vaping Use Vaping status: Never Used Substance Use Topics Alcohol use: Never Drug use: Never ALLERGIES Allergen Reactions Lavender (Lavandula* Rash Metformin GI Upset Latex Rash Family History Problem Relation Age of Onset Diabetes Brother Current Outpatient Medications Medication Sig Dispense Refill DEXCOM G7 SENSOR chris as directed. LANTUS SOLOSTAR U-100 INSULIN 100 unit/mL (3 mL) INJECT 50 UNITS SUBCUTANEOUSLY AT BEDTIME gabapentin (NEURONTIN) 600 mg tablet Take 1 tablet by mouth daily at bedtime for 90 days. 30 tablet 2 lisinopril (ZESTRIL) 20 mg tablet TAKE 1 TABLET BY MOUTH ONCE DAILY 90 tablet 1 insulin lispro (HUMALOG KWIKPEN INSULIN) 100 unit/mL Inject 35 Units subcutaneously three times a day before meals. If BS over 200 take 30 units. If BS is under 200 but greater than 150 take 25 units. OZEMPIC 1 mg/dose (4 mg/3 mL) pen INJECT THE CONTENTS OF 1 PEN UNDER THE SKIN ONCE WEEKLY atorvastatin (LIPITOR) 40 mg tablet Take 1 tablet by mouth once daily. [address] (PROTONIX) 40 mg tablet Take 1 tablet by mouth once daily. 90 tablet 1 Lancets (ACCU-CHEK FASTCLIX LANCET DRUM) lancets USE 1 LANCET TO CHECK BLOOD SUGAR THREE TIMES DAILY 120 Each 2 albuterol HFA (PROAIR HFA) 90 mcg/actuation inhaler Inhale 2 Puffs as instructed every 4 hours as needed for wheezing/shortness of breath. 1 Each 2 CPAP/BIPAP/OTHER Type .CPAPSettings into a note to see current settings/supplies/DME information. 1 Each 0 dapagliflozin propanediol (FARXIGA) 10 mg tablet Take 1 tablet by mouth daily with breakfast. 30 tablet 2 blood sugar diagnostic test strip Accu chek guide me test strips patient checks sugars 3 times daily Dx E11.42 100 Each 1 MULTI-VITAMIN ORAL Take 1 tablet by mouth once daily. Blood-Glucose Meter (ACCU-CHEK GUIDE ME GLUCOSE MTR) patient checks sugars 3 times daily Dx E11.42 1 Each 0 aspirin 81 mg chewable tablet Take 81 mg by mouth. metoprolol tartrate, short acting, (LOPRESSOR) 25 mg tablet Take 1 tablet by mouth two times a day. 180 tablet 1 No current facility-administered medications for this visit. Review of Systems Constitutional: Negative for chills, diaphoresis, fatigue, fever and unexpected weight change. HENT: Negative. Eyes: Negative. Respiratory: Positive for apnea. Negative for cough, chest tightness, shortness of breath and wheezing. Cardiovascular: Negative for chest pain, palpitations and leg swelling. Gastrointestinal: Negative for abdominal pain, constipation, diarrhea, nausea and vomiting. Endocrine: Negative. Genitourinary: Negative. Musculoskeletal: Positive for arthralgias, back pain and myalgias. Negative for gait problem, joint swelling, neck pain and neck stiffness. Skin: Negative. Allergic/Immunologic: Negative. Neurological: Positive for numbness. Negative for dizziness, light-headedness and headaches. Hematological: Negative. Psychiatric/Behavioral: Positive for dysphoric mood and sleep disturbance. The patient is nervous/anxious. BP 122/72 Pulse 96 Temp 97.3 Resp 16 Ht 5' 4" (1.63m) Wt 224 lb (101.6kg) SpO2 100% BMI 38.43 kg/(m^2). Physical Exam Vitals and nursing note reviewed. Constitutional: General: She is not in acute distress. Appearance: She is obese. HENT: Mouth/Throat: Mouth: Mucous membranes are moist. Cardiovascular: Rate and Rhythm: Normal rate and regular rhythm. Heart sounds: Normal heart sounds. Pulmonary: Effort: Pulmonary effort is normal. Breath sounds: Normal breath sounds. Musculoskeletal: Cervical back: Neck supple. Feet: Skin: General: Skin is warm and dry. Neurological: Mental Status: She is alert and oriented to person, place, and time. Psychiatric: Mood and Affect: Affect is tearful. No visits with results within 1 Day(s) from this visit. Latest known visit with results is: Patient Outreach on 07/04/2024 Component Date Value Ref Range Status HGBA1C 12/30/2023 10.1 (A) 4.0 - 6.0 % Final ASSESSMENT/PLAN: 1. Hypertension, essential - ICD9: 401.9, ICD10: I10 (primary diagnosis) - Controlled - Continue current medications - Recommend home blood pressure monitoring, to bring results to next visit - Encouraged sodium restriction, DASH or Mediterranean diet - Discussed need for and benefit of weight loss. BMI 38.45 kg/(m^2) - COMPLETE BLOOD COUNT AND DIFFERENTIAL - COMPREHENSIVE METABOLIC PANEL - METOPROLOL TARTRATE 25 MG TABLET 2. Hyperlipidemia, mixed - ICD9: 272.2, ICD10: E78.2 - Control undetermined, due for labs - Continue current medications - Counseled on healthy diet and regular exercise - LIPID PANEL BASIC 3. Diabetic polyneuropathy associated with type 2 diabetes mellitus (HCC) - ICD9: 250.60, 357.2, ICD10: E11.42 - Control undetermined, due for labs. Advised patient that she needs to make an appointment with Ayana barbosa. - Barriers to control: diet adherence, lack of exercise, food insecurity, and unstable living situation - Continue current medications - Statin prescribed - This patient does not have an active medication from one of the medication groupers. - Blood glucose monitoring on a continuous glucose monitoring schedule - Counseled on healthy diet and regular exercise - Discussed need for and benefit of weight loss. BMI 38.45 kg/(m^2) - Follow up in 3 months, sooner should any other issues arise. - ALBUMIN/CREATININE RATIO, URINE - HEMOGLOBIN A1C New medication(s) prescribed today: None. Counseling completed in adopting health behaviors such as avoiding excessive alcohol use, avoid tobacco use, improve nutrition, and engage in physical activities. Copy of written care plan, clinical summary, treatment plan, new medications, goals, and self management requirements were given to patient. Arianna Rosales APRN.JOVANA documented in this encounter [facility] 08-22-2024 Telephone encounter Note pharm requesting refills: Last office visit 01/05/2024. Last refill 02/23/2024. Requested Prescriptions Pending Prescriptions Disp Refills gabapentin (NEURONTIN) 600 mg tablet [Pharmacy Med Name: gabapentin 600 mg tablet] 30 tablet 2 Sig: Take 1 tablet by mouth daily at bedtime. Please review and advise. Kristin Donaldson MA [facility] 08-22-2024 Miscellaneous Notes pharm requesting refills: Last office visit 01/05/2024. Last refill 02/23/2024. Requested Prescriptions Pending Prescriptions Disp Refills gabapentin (NEURONTIN) 600 mg tablet [Pharmacy Med Name: gabapentin 600 mg tablet] 30 tablet 2 Sig: Take 1 tablet by mouth daily at bedtime. Please review and advise. Kristin Donaldson MA documented in this encounter [facility] 07-29-2024 Note HNO ID: [id number] Author: MARU HO RN Service: ? Author Type: Registered Nurse Type: Progress Notes Filed: 07/29/2024 09:11 Note Text: [facility] POPULATION HEALTH NAVIGATION OUTREACH Action/FYI Patient Identified by Name and : Yes, via phone Reason for Outreach Care Gap or Scheduling Wellness Visits Care Gap Reviewed:: Annual Wellness visit Colorectal Cancer Screening HBA1C/GMI Outreach Outcome/Action Unable to reach patient: Left message Population Health Navigation Workflow Chart Review Payer: [facility] Navigation Signature: Maru Ho RN July 29, 2024 9:10 AM [facility] 07-21-2024 Telephone encounter Note pharmacy electronically requesting refills as follows: Last seen 01/05/24 . Last refill 10/08/23 . Requested Prescriptions Pending Prescriptions Disp Refills lisinopril (ZESTRIL) 20 mg tablet [Pharmacy Med Name: lisinopril 20 mg tablet] 90 tablet 1 Sig: TAKE 1 TABLET BY MOUTH ONCE DAILY Please review and advise. Valentin Champagne MA [facility] 07-21-2024 Miscellaneous Notes pharmacy electronically requesting refills as follows: Last seen 01/05/24 . Last refill 10/08/23 . Requested Prescriptions Pending Prescriptions Disp Refills lisinopril (ZESTRIL) 20 mg tablet [Pharmacy Med Name: lisinopril 20 mg tablet] 90 tablet 1 Sig: TAKE 1 TABLET BY MOUTH ONCE DAILY Please review and advise. Valentin Champagne MA documented in this encounter [facility] 07-04-2024 Note HNO ID: [id number] Author: MARU HO RN Service: ? Author Type: Registered Nurse Type: Progress Notes Filed: 07/04/2024 11:21 Note Text: [facility] POPULATION HEALTH NAVIGATION OUTREACH Action/FYI Patient follows with Dr. Abraham Valadez MD for diabetes. Last A1c was 10.1 on 12/30/2023. Due for redraw on 03/30/2024. Patient has been sent multiple [employer] messages regarding care gaps and future lab orders. Those [employer] message have been read. Patient Identified by Name and : Yes, via EPIC - no outreach needed Reason for Outreach Care Gap or Scheduling Wellness Visits Care Gap Reviewed:: Annual Wellness visit Diabetic Eye Exam HBA1C/GMI Outreach Outcome/Action Routed to PCP Population Health Navigation Workflow Chart Review Payer: [facility] Navigation Signature: Maru Ho RN July 04, 2024 11:10 AM [facility] 07-04-2024 History of Present illness Narrative [facility] POPULATION HEALTH NAVIGATION OUTREACH Action/FYI Patient follows with Dr. Abraham Valadez MD for diabetes. Last A1c was 10.1 on 12/30/2023. Due for redraw on 03/30/2024. Patient has been sent multiple mychart messages regarding care gaps and future lab orders. Those mychart message have been read. Patient Identified by Name and : Yes, via EPIC - no outreach needed Reason for Outreach Care Gap or Scheduling Wellness Visits Care Gap Reviewed:: Annual Wellness visit Diabetic Eye Exam HBA1C/GMI Outreach Outcome/Action Routed to PCP Population Health Navigation Workflow Chart Review Payer: [facility] Navigation Signature: Maru Ho RN July 04, 2024 11:10 AM documented in this encounter [facility] 07-04-2024 Note Patient Outreach (AG FAMPLE) JUANA HANDY V ([id number]) 1965 F Date Time Provider Department 07/04/24 MARU HO During your visit today, we recorded the following information about you: Maru Ho RN 07/04/2024 11:21 AM Signed [facility] POPULATION HEALTH NAVIGATION OUTREACH Action/FYI Patient follows with Dr. Abraham Valadez MD for diabetes. Last A1c was 10.1 on 12/30/2023. Due for redraw on 03/30/2024. Patient has been sent multiple mychart messages regarding care gaps and future lab orders. Those mychart message have been read. Patient Identified by Name and : Yes, via EPIC - no outreach needed Reason for Outreach Care Gap or Scheduling Wellness Visits Care Gap Reviewed:: Annual Wellness visit Diabetic Eye Exam HBA1C/GMI Outreach Outcome/Action Routed to PCP Population Health Navigation Workflow Chart Review Payer: [facility] Navigation Signature: Maru Ho RN July 04, 2024 11:10 AM Maru Ho RN 07/29/2024 9:11 AM Signed [facility] NAVIGATION OUTREACH Action/FYI Patient Identified by Name and : Yes, via phone Reason for Outreach Care Gap or Scheduling Wellness Visits Care Gap Reviewed:: Annual Wellness visit Colorectal Cancer Screening HBA1C/GMI Outreach Outcome/Action Unable to reach patient: Left message Population Health Navigation Workflow Chart Review Payer: [facility] Navigation Signature: Maru Ho RN July 29, 2024 9:10 AM Allergies As of Date: 07/04/2024 Noted Allergy Reaction LAVENDER (LAVANDULA ANGUSTIFOLIA) 01/06/2022 2 - Rash METFORMIN 01/06/2022 8 - GI Upset LATEX 09/29/2017 2 - Rash Date Reviewed: 01/25/2024 Reviewed by: Abby Lorenzo RN - Fully Assessed Reason for Visit: Population Health Navigation Outreach [3910] Cmt: [facility] Attributed Member - Chart Review Order(s):HEMOGLOBIN A1C [[id number]] Order #: [id number] Prescriptions as of 08/29/2024 - gabapentin (NEURONTIN) 600 mg tablet Take 1 tablet by mouth daily at bedtime for 90 days. - lisinopril (ZESTRIL) 20 mg tablet TAKE 1 TABLET BY MOUTH ONCE DAILY - insulin glargine U-300 conc (TOUJEO MAX) 300 unit/mL (3 mL) inpn Inject 55 Units subcutaneously daily at bedtime. - insulin lispro (HUMALOG KWIKPEN INSULIN) 100 unit/mL Inject 35 Units subcutaneously three times a day before meals. If BS over 200 take 30 units. If BS is under 200 but greater than 150 take 25 units. - OZEMPIC 1 mg/dose (4 mg/3 mL) pen INJECT THE CONTENTS OF 1 PEN UNDER THE SKIN ONCE WEEKLY - atorvastatin (LIPITOR) 40 mg tablet Take 1 tablet by mouth once daily. - pantoprazole DR (PROTONIX) 40 mg tablet Take 1 tablet by mouth once daily. - metoprolol tartrate, short acting, (LOPRESSOR) 25 mg tablet Take 1 tablet by mouth two times a day. - Lancets (ACCU-CHEK FASTCLIX LANCET DRUM) lancets USE 1 LANCET TO CHECK BLOOD SUGAR THREE TIMES DAILY - albuterol HFA (PROAIR HFA) 90 mcg/actuation inhaler Inhale 2 Puffs as instructed every 4 hours as needed for wheezing/shortness of breath. - CPAP/BIPAP/OTHER Type .CPAPSettings into a note to see current settings/supplies/DME information. - dapagliflozin propanediol (FARXIGA) 10 mg tablet Take 1 tablet by mouth daily with breakfast. - blood sugar diagnostic test strip Accu chek guide me test strips patient checks sugars 3 times daily Dx E11.42 - MULTI-VITAMIN ORAL Take 1 tablet by mouth once daily. - Blood-Glucose Meter (ACCU-CHEK GUIDE ME GLUCOSE MTR) patient checks sugars 3 times daily Dx E11.42 - aspirin 81 mg chewable tablet Take 81 mg by mouth. Problem List As Of Date 07/04/2024 Noted Resolved Obesity, Class II, BMI 35-39.9 [E66.812] 12/11/2021 Lung nodule [R91.1] 05/22/2020 Pain in both lower extremities [M79.604, M79.60*12/11/2021 Pneumonia due to severe acute respiratory syndr*12/11/2021 Anxiety [F41.9] 02/29/2020 Chest pain [R07.9] 12/11/2021 Chronic bilateral low back pain [M54.50, G89.29]11/02/2019 Chronic thoracic spine pain [M54.6, G89.29] 11/02/2019 Class 3 severe obesity with serious comorbidity*10/06/2018 03/23/2023 Dental caries [K02.9] 12/15/2020 Fibromyalgia [M79.7] 05/15/2017 Gastroesophageal reflux disease [K21.9] 05/10/2019 Hyperglycemia [R73.9] 12/11/2021 Hyperlipidemia, mixed [E78.2] 08/18/2018 Hypertension, essential [I10] 08/18/2018 Hypokalemia [E87.6] 12/11/2021 Lightheadedness [R42] 12/11/2021 Degenerative disc disease, cervical [M50.30] 12/17/2018 Mixed anxiety depressive disorder [F41.8] 11/22/2019 Neuropathy [G62.9] 12/11/2021 Neuropathy involving both lower extremities [G5*11/26/2017 Neuropathy of lower extremity [G57.90] 11/26/2017 Pain [R52] 12/11/2021 Painful mouth [K13.79] 12/15/2020 Primary osteoarthritis of both knees [M17.0] 12/11/2021 Pulmonary nodule, left [R91.1] 05/22/2020 History of cervical spinal arthrodesis [Z98.1] 05/26/2018 Histor (more content not included)... [facility] 05-12-2024 Note HNO ID: [id number] Author: ANGELI PENA, ? Service: ? Author Type: ? Type: Progress Notes Filed: 05/12/2024 14:08 Note Text: [facility] POPULATION HEALTH NAVIGATION OUTREACH Action/FYI Patient needs informed of labs ordered by PCP. Needs asked about scheduling AMW. Already has FU sched. Patient Identified by Name and : Yes, via phone and via [employer] Reason for Outreach Care Gap or Scheduling Wellness Visits Care Gap Reviewed:: Annual Wellness visit Breast Cancer screening Diabetic Eye Exam HBA1C/GMI KED (UACR/eGFR) Outreach Outcome/Action Unable to reach patient: Left message [employer] message sent Population Health Navigation Workflow Chart Review Pre-Visit Planning Payer: [facility] Navigation Signature: Angeli Pena May 12, 2024 2:02 PM [facility] 05-12-2024 History of Present illness Narrative [facility] POP[facility]ATION HEALTH NAVIGATION OUTREACH Action/FYI Patient needs informed of labs ordered by PCP. Needs asked about scheduling AMW. Already has FU sched. Patient Identified by Name and : Yes, via phone and via [employer] Reason for Outreach Care Gap or Scheduling Wellness Visits Care Gap Reviewed:: Annual Wellness visit Breast Cancer screening Diabetic Eye Exam HBA1C/GMI KED (UACR/eGFR) Outreach Outcome/Action Unable to reach patient: Left message MyChart message sent Population Health Navigation Workflow Chart Review Pre-Visit Planning Payer: [facility] Navigation Signature: Angeli Pena May 12, 2024 2:02 PM documented in this encounter [facility] 05-12-2024 Note Patient Outreach (AG FAMPLE) JUANA HANDY V ([id number]) 1965 F Date Time Provider Department 05/12/24 ANGELI PENA During your visit today, we recorded the following information about you: Angeli Pena 05/12/2024 2:08 PM Signed [facility] POPULATION HEALTH NAVIGATION OUTREACH Action/ Patient needs informed of labs ordered by PCP. Needs asked about scheduling AMW. Already has FU sched. Patient Identified by Name and : Yes, via phone and via [employer] Reason for Outreach Care Gap or Scheduling Wellness Visits Care Gap Reviewed:: Annual Wellness visit Breast Cancer screening Diabetic Eye Exam HBA1C/GMI KED (UACR/eGFR) Outreach Outcome/Action Unable to reach patient: Left message [employer] message sent Population Health Navigation Workflow Chart Review Pre-Visit Planning Payer: [facility] Navigation Signature: Angeli Pena May 12, 2024 2:02 PM Allergies As of Date: 05/12/2024 Noted Allergy Reaction LAVENDER (LAVANDULA ANGUSTIFOLIA) 01/06/2022 2 - Rash METFORMIN 01/06/2022 8 - GI Upset LATEX 09/29/2017 2 - Rash Date Reviewed: 01/25/2024 Reviewed by: Abby Lorenzo, JEREMY - Fully Assessed Reason for Visit: Population Health Navigation Outreach [3910] Cmt: [facility] Attributed Member- Needs 2023 Medicare Wellness Appt Scheduled Prescriptions as of 05/12/2024 - gabapentin (NEURONTIN) 600 mg tablet Take 1 tablet by mouth daily at bedtime for 90 days. - insulin glargine U-300 conc (TOUJEO MAX) 300 unit/mL (3 mL) inpn Inject 55 Units subcutaneously daily at bedtime. - insulin lispro (HUMALOG KWIKPEN INSULIN) 100 unit/mL Inject 35 Units subcutaneously three times a day before meals. If BS over 200 take 30 units. If BS is under 200 but greater than 150 take 25 units. - OZEMPIC 1 mg/dose (4 mg/3 mL) pen INJECT THE CONTENTS OF 1 PEN UNDER THE SKIN ONCE WEEKLY - atorvastatin (LIPITOR) 40 mg tablet Take 1 tablet by mouth once daily. - lisinopril (ZESTRIL) 20 mg tablet Take 1 tablet by mouth once daily. - pantoprazole DR (PROTONIX) 40 mg tablet Take 1 tablet by mouth once daily. - metoprolol tartrate, short acting, (LOPRESSOR) 25 mg tablet Take 1 tablet by mouth two times a day. - Lancets (ACCU-CHEK FASTCLIX LANCET DRUM) lancets USE 1 LANCET TO CHECK BLOOD SUGAR THREE TIMES DAILY - albuterol HFA (PROAIR HFA) 90 mcg/actuation inhaler Inhale 2 Puffs as instructed every 4 hours as needed for wheezing/shortness of breath. - CPAP/BIPAP/OTHER Type .CPAPSettings into a note to see current settings/supplies/DME information. - dapagliflozin propanediol (FARXIGA) 10 mg tablet Take 1 tablet by mouth daily with breakfast. - blood sugar diagnostic test strip Accu chek guide me test strips patient checks sugars 3 times daily Dx E11.42 - MULTI-VITAMIN ORAL Take 1 tablet by mouth once daily. - Blood-Glucose Meter (ACCU-CHEK GUIDE ME GLUCOSE MTR) patient checks sugars 3 times daily Dx E11.42 - aspirin 81 mg chewable tablet Take 81 mg by mouth. Problem List As Of Date 05/12/2024 Noted Resolved Obesity, Class II, BMI 35-39.9 [E66.9] 12/11/2021 Lung nodule [R91.1] 05/22/2020 Pain in both lower extremities [M79.604, M79.60*12/11/2021 Pneumonia due to severe acute respiratory syndr*12/11/2021 Anxiety [F41.9] 02/29/2020 Chest pain [R07.9] 12/11/2021 Chronic bilateral low back pain [M54.50, G89.29]11/02/2019 Chronic thoracic spine pain [M54.6, G89.29] 11/02/2019 Class 3 severe obesity with serious comorbidity*10/06/2018 03/23/2023 Dental caries [K02.9] 12/15/2020 Fibromyalgia [M79.7] 05/15/2017 Gastroesophageal reflux disease [K21.9] 05/10/2019 Hyperglycemia [R73.9] 12/11/2021 Hyperlipidemia, mixed [E78.2] 08/18/2018 Hypertension, essential [I10] 08/18/2018 Hypokalemia [E87.6] 12/11/2021 Lightheadedness [R42] 12/11/2021 Degenerative disc disease, cervical [M50.30] 12/17/2018 Mixed anxiety depressive disorder [F41.8] 11/22/2019 Neuropathy [G62.9] 12/11/2021 Neuropathy involving both lower extremities [G5*11/26/2017 Neuropathy of lower extremity [G57.90] 11/26/2017 Pain [R52] 12/11/2021 Painful mouth [K13.79] 12/15/2020 Primary osteoarthritis of both knees [M17.0] 12/11/2021 Pulmonary nodule, left [R91.1] 05/22/2020 History of cervical spinal arthrodesis [Z98.1] 05/26/2018 History of lumbar fusion [Z98.1] 12/11/2021 Spinal stenosis of lumbar region without neurog*11/04/2017 Type 2 diabetes mellitus without complication, *05/05/2018 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] 12/11/2021 Uncontrolled type 2 diabetes mellitus [ONZ1162] 11/26/2017 Swelling of toe of right foot [M79.89] 01/17/2024 Cellulitis of third toe of right foot [L03.031] 01/17/2024 Osteomyelitis of right foot (HCC) [M86.9] 01/20/2024 Paroxysmal nocturnal dyspnea [R06.00] 01/21/2024 Diabetic polyneuropathy associated with type 2 *01/21/2024 Full code status [Z78 (more content not included)... [facility] 05-05-2024 Note HNO ID: [id number] Author: ANGELI PENA, ? Service: ? Author Type: ? Type: Progress Notes Filed: 05/05/2024 08:32 Note Text: [facility] POPULATION HEALTH NAVIGATION OUTREACH Action/FYI Orders placed. Patient needs informed and asked about scheduling AMW. Patient Identified by Name and : Yes, via phone and via [employer] Reason for Outreach Care Gap or Scheduling Wellness Visits Care Gap Reviewed:: Annual Wellness visit Breast Cancer screening Diabetic Eye Exam HBA1C/GMI KED (UACR/eGFR) Outreach Outcome/Action Unable to reach patient: Left message [employer] message sent Population Health Navigation Workflow Chart Review Pre-Visit Planning Payer: [facility] Navigation Signature: Angeli Pena May 05, 2024 8:27 AM [facility] 05-05-2024 Note HNO ID: [id number] Author: ARIANNA ROSALES APRN.CORPORATE CONSULTANT Service: ? Author Type: Nurse Practitioner Type: Progress Notes Filed: 05/05/2024 08:19 Note Text: Orders placed. She follows with Endocrinology for her diabetes. Dr. Rory Valadez in [place]. [facility] 04-25-2024 Note HNO ID: [id number] Author: ANGELI PENA, ? Service: ? Author Type: ? Type: Progress Notes Filed: 04/25/2024 15:40 Note Text: [facility] POPULATION HEALTH NAVIGATION OUTREACH Action/FYI Patient has care gap for Urine Albumin, GFR, A1C, Mamm. Could you please review chart and pend needed orders? I will continue outreach efforts to notify patient and assist with scheduling. Patient Identified by Name and : Yes, via phone and via [employer] Reason for Outreach Care Gap or Scheduling Wellness Visits Care Gap Reviewed:: Annual Wellness visit Breast Cancer screening Colorectal Cancer Screening Diabetic Eye Exam HBA1C/GMI KED (UACR/eGFR) Outreach Outcome/Action Unable to reach patient: Left message [employer] message sent Population Health Navigation Workflow Chart Review Pre-Visit Planning Payer: [facility] Navigation Signature: Angeli Pena April 25, 2024 3:34 PM [facility] 04-25-2024 History of Present illness Narrative [facility] POPULATION HEALTH NAVIGATION OUTREACH Action/FYI Patient has care gap for Urine Albumin, GFR, A1C, Mamm. Could you please review chart and pend needed orders? I will continue outreach efforts to notify patient and assist with scheduling. Patient Identified by Name and : Yes, via phone and via [employer] Reason for Outreach Care Gap or Scheduling Wellness Visits Care Gap Reviewed:: Annual Wellness visit Breast Cancer screening Colorectal Cancer Screening Diabetic Eye Exam HBA1C/GMI KED (UACR/eGFR) Outreach Outcome/Action Unable to reach patient: Left message MyChart message sent Population Health Navigation Workflow Chart Review Pre-Visit Planning Payer: [facility] Navigation Signature: Angeli Pena April 25, 2024 3:34 PM documented in this encounter [facility] 04-25-2024 Note Patient Outreach (AG FAMPLE) JUANA HANDY V ([id number]) 1965 F Date Time Provider Department 04/25/24 ANGELI PENA During your visit today, we recorded the following information about you: Angeli Pena 04/25/2024 3:40 PM Signed [facility] POPULATION HEALTH NAVIGATION OUTREACH Action/ Patient has care gap for Urine Albumin, GFR, A1C, Mamm. Could you please review chart and pend needed orders? I will continue outreach efforts to notify patient and assist with scheduling. Patient Identified by Name and : Yes, via phone and via [employer] Reason for Outreach Care Gap or Scheduling Wellness Visits Care Gap Reviewed:: Annual Wellness visit Breast Cancer screening Colorectal Cancer Screening Diabetic Eye Exam HBA1C/GMI KED (UACR/eGFR) Outreach Outcome/Action Unable to reach patient: Left message MyChart message sent Population Health Navigation Workflow Chart Review Pre-Visit Planning Payer: [facility] Navigation Signature: Angeli Pena April 25, 2024 3:34 PM Arianna Rosales APRN.CORPORATE CONSULTANT 05/05/2024 8:18 AM Signed Addended by: ARIANNA ROSALES on: 05/05/2024 08:18 AM Modules accepted: Orders Arianna Rosales, CHANDNI.JOVANA 05/05/2024 8:19 AM Signed Orders placed. She follows with Endocrinology for her diabetes. Dr. Rory Valadez in [place]. Angeli Pena 05/05/2024 8:32 AM Signed [facility] POPULATION HEALTH NAVIGATION OUTREACH Action/FYI Orders placed. Patient needs informed and asked about scheduling AMW. Patient Identified by Name and : Yes, via phone and via [employer] Reason for Outreach Care Gap or Scheduling Wellness Visits Care Gap Reviewed:: Annual Wellness visit Breast Cancer screening Diabetic Eye Exam HBA1C/GMI KED (UACR/eGFR) Outreach Outcome/Action Unable to reach patient: Left message [employer] message sent Population Health Navigation Workflow Chart Review Pre-Visit Planning Payer: [facility] Navigation Signature: Angeli Pena May 05, 2024 8:27 AM Allergies As of Date: 04/25/2024 Noted Allergy Reaction LAVENDER (LAVANDULA ANGUSTIFOLIA) 01/06/2022 2 - Rash METFORMIN 01/06/2022 8 - GI Upset LATEX 09/29/2017 2 - Rash Date Reviewed: 01/25/2024 Reviewed by: Abby Lorenzo RN - Fully Assessed Reason for Visit: Population Health Navigation Outreach [3910] Cmt: [facility] Attributed Member- Needs 2023 Medicare Wellness Appt Scheduled Visit Diagnoses:Diabetic polyneuropathy associated with type 2 diabetes mellitus (HCC) [E11.42] Encounter for screening mammogram for breast cancer [Z12.31] Order(s):ALBUMIN/CREATININE RATIO, URINE [SQUACR] Order #: [id number] FUTURE FRED SCREENING W ALFREDO [2618364] Order #: [id number] FUTURE LIPID PANEL BASIC [SQLIPB] Order #: [id number] FUTURE COMPREHENSIVE METABOLIC PANEL [SQCMP] Order #: [id number] FUTURE Prescriptions as of 05/05/2024 - gabapentin (NEURONTIN) 600 mg tablet Take 1 tablet by mouth daily at bedtime for 90 days. - insulin glargine U-300 conc (TOUJEO MAX) 300 unit/mL (3 mL) inpn Inject 55 Units subcutaneously daily at bedtime. - insulin lispro (HUMALOG KWIKPEN INSULIN) 100 unit/mL Inject 35 Units subcutaneously three times a day before meals. If BS over 200 take 30 units. If BS is under 200 but greater than 150 take 25 units. - OZEMPIC 1 mg/dose (4 mg/3 mL) pen INJECT THE CONTENTS OF 1 PEN UNDER THE SKIN ONCE WEEKLY - atorvastatin (LIPITOR) 40 mg tablet Take 1 tablet by mouth once daily. - lisinopril (ZESTRIL) 20 mg tablet Take 1 tablet by mouth once daily. - pantoprazole DR (PROTONIX) 40 mg tablet Take 1 tablet by mouth once daily. - metoprolol tartrate, short acting, (LOPRESSOR) 25 mg tablet Take 1 tablet by mouth two times a day. - Lancets (ACCU-CHEK FASTCLIX LANCET DRUM) lancets USE 1 LANCET TO CHECK BLOOD SUGAR THREE TIMES DAILY - albuterol HFA (PROAIR HFA) 90 mcg/actuation inhaler Inhale 2 Puffs as instructed every 4 hours as needed for wheezing/shortness of breath. - CPAP/BIPAP/OTHER Type .CPAPSettings into a note to see current settings/supplies/DME information. - dapagliflozin propanediol (FARXIGA) 10 mg tablet Take 1 tablet by mouth daily with breakfast. - blood sugar diagnostic test strip Accu chek guide me test strips patient checks sugars 3 times daily Dx E11.42 - MULTI-VITAMIN ORAL Take 1 tablet by mouth once daily. - Blood-Glucose Meter (ACCU-CHEK GUIDE ME GLUCOSE MTR) patient checks sugars 3 times daily Dx E11.42 - aspirin 81 mg chewable tablet Take 81 mg by mouth. Problem List As Of Date 04/25/2024 Noted Resolved Obesity, Class II, BMI 35-39.9 [E66.9] 12/11/2021 Lung nodule [R91.1] 05/22/2020 Pain in both lower extremities [M79.604, M79.60*12/11/2021 Pneumonia due to severe acute respiratory syndr*12/11/2021 Anxiety [F41.9] 02/29/2020 Chest pain [R07.9] 12/11/2021 Chronic bilateral low back pain [ (more content not included)... [facility] 04-13-2024 Note HNO ID: [id number] Author: ANGELI PENA, ? Service: ? Author Type: ? Type: Progress Notes Filed: 04/13/2024 15:49 Note Text: [facility] POPULATION HEALTH NAVIGATION OUTREACH Action/FYI Patient was unsure when she had last DM eye. Patient was driving and requested to return my call to discuss care gaps. Patient Identified by Name and : Yes, via phone Reason for Outreach Care Gap or Scheduling Wellness Visits Care Gap Reviewed:: Annual Wellness visit Colorectal Cancer Screening HBA1C/GMI KED (UACR/eGFR) Outreach Outcome/Action Spoke to patient / parent / legal guardian: Patient will return the call or ask for return call Population Health Navigation Workflow Pre-Visit Planning Payer: [facility] Navigation Signature: Angeli Pean April 13, 2024 3:45 PM [facility] 04-11-2024 Note HNO ID: [id number] Author: ANGELI PENA, ? Service: ? Author Type: ? Type: Progress Notes Filed: 04/11/2024 12:31 Note Text: [facility] POPULATION HEALTH NAVIGATION OUTREACH Action/FYI [facility] 01-25-2024 UPLOADED 01-25-2024 [facility] DC START STOP NOTED Patient Identified by Name and : Yes, via MyChart Reason for Outreach Care Gap or Scheduling Wellness Visits Care Gap Reviewed:: Annual Wellness visit Colorectal Cancer Screening Diabetic Eye Exam HBA1C/GMI KED (UACR/eGFR) [facility] Outreach Outcome/Action MyChart message sent Population Health Navigation Workflow Cute PDF and Portal Submission Pre-Visit Planning Payer: [facility] Navigation Signature: Angeli Pena April 11, 2024 12:25 PM [facility] 04-11-2024 History of Present illness Narrative [facility] POPULATION HEALTH NAVIGATION OUTREACH Action/FYI [facility] 01-25-2024 UPLOADED 01-25-2024 [facility] START STOP NOTED Patient Identified by Name and : Yes, via MyChart Reason for Outreach Care Gap or Scheduling Wellness Visits Care Gap Reviewed:: Annual Wellness visit Colorectal Cancer Screening Diabetic Eye Exam HBA1C/GMI KED (UACR/eGFR) [facility] Outreach Outcome/Action MyChart message sent Population Health Navigation Workflow Cute PDF and Portal Submission Pre-Visit Planning Payer: [facility] Navigation Signature: Angeli Pena April 11, 2024 12:25 PM documented in this encounter [facility] 04-11-2024 Note Patient Outreach (AG FAMPLE) JUANA HANDY V ([id number]) 1965 F Date Time Provider Department 04/11/24 ANGELI PENA During your visit today, we recorded the following information about you: Angeli Pena 04/11/2024 12:31 PM Signed [facility] POPULATION HEALTH NAVIGATION OUTREACH Action/FYI [facility] 01-25-2024 UPLOADED 01-25-2024 [facility] START STOP NOTED Patient Identified by Name and : Yes, via [employer] Reason for Outreach Care Gap or Scheduling Wellness Visits Care Gap Reviewed:: Annual Wellness visit Colorectal Cancer Screening Diabetic Eye Exam HBA1C/GMI KED (UACR/eGFR) [facility] Outreach Outcome/Action Cater to u message sent Population Health Navigation Workflow Cute PDF and Portal Submission Pre-Visit Planning Payer: [facility] Navigation Signature: Angeli Pena April 11, 2024 12:25 PM Angeli Pena 04/13/2024 3:49 PM Signed [facility] POPULATION HEALTH NAVIGATION OUTREACH Action/FYI Patient was unsure when she had last DM eye. Patient was driving and requested to return my call to discuss care gaps. Patient Identified by Name and : Yes, via phone Reason for Outreach Care Gap or Scheduling Wellness Visits Care Gap Reviewed:: Annual Wellness visit Colorectal Cancer Screening HBA1C/GMI KED (UACR/eGFR) Outreach Outcome/Action Spoke to patient / parent / legal guardian: Patient will return the call or ask for return call Population Health Navigation Workflow Pre-Visit Planning Payer: [facility] Navigation Signature: Angeli Pena April 13, 2024 3:45 PM Allergies As of Date: 04/11/2024 Noted Allergy Reaction LAVENDER (LAVANDULA ANGUSTIFOLIA) 01/06/2022 2 - Rash METFORMIN 01/06/2022 8 - GI Upset LATEX 09/29/2017 2 - Rash Date Reviewed: 01/25/2024 Reviewed by: Abby Lorenzo RN - Fully Assessed Reason for Visit: Population Health Navigation Outreach [3910] Cmt: [facility] Attributed Member- Needs 2023 Medicare Wellness Appt Scheduled Prescriptions as of 04/13/2024 - gabapentin (NEURONTIN) 600 mg tablet Take 1 tablet by mouth daily at bedtime for 90 days. - insulin glargine U-300 conc (TOUJEO MAX) 300 unit/mL (3 mL) inpn Inject 55 Units subcutaneously daily at bedtime. - insulin lispro (HUMALOG KWIKPEN INSULIN) 100 unit/mL Inject 35 Units subcutaneously three times a day before meals. If BS over 200 take 30 units. If BS is under 200 but greater than 150 take 25 units. - OZEMPIC 1 mg/dose (4 mg/3 mL) pen INJECT THE CONTENTS OF 1 PEN UNDER THE SKIN ONCE WEEKLY - atorvastatin (LIPITOR) 40 mg tablet Take 1 tablet by mouth once daily. - lisinopril (ZESTRIL) 20 mg tablet Take 1 tablet by mouth once daily. - pantoprazole DR (PROTONIX) 40 mg tablet Take 1 tablet by mouth once daily. - metoprolol tartrate, short acting, (LOPRESSOR) 25 mg tablet Take 1 tablet by mouth two times a day. - Lancets (ACCU-CHEK FASTCLIX LANCET DRUM) lancets USE 1 LANCET TO CHECK BLOOD SUGAR THREE TIMES DAILY - albuterol HFA (PROAIR HFA) 90 mcg/actuation inhaler Inhale 2 Puffs as instructed every 4 hours as needed for wheezing/shortness of breath. - CPAP/BIPAP/OTHER Type .CPAPSettings into a note to see current settings/supplies/DME information. - dapagliflozin propanediol (FARXIGA) 10 mg tablet Take 1 tablet by mouth daily with breakfast. - blood sugar diagnostic test strip Accu chek guide me test strips patient checks sugars 3 times daily Dx E11.42 - MULTI-VITAMIN ORAL Take 1 tablet by mouth once daily. - Blood-Glucose Meter (ACCU-CHEK GUIDE ME GLUCOSE MTR) patient checks sugars 3 times daily Dx E11.42 - aspirin 81 mg chewable tablet Take 81 mg by mouth. Problem List As Of Date 04/11/2024 Noted Resolved Obesity, Class II, BMI 35-39.9 [E66.9] 12/11/2021 Lung nodule [R91.1] 05/22/2020 Pain in both lower extremities [M79.604, M79.60*12/11/2021 Pneumonia due to severe acute respiratory syndr*12/11/2021 Anxiety [F41.9] 02/29/2020 Chest pain [R07.9] 12/11/2021 Chronic bilateral low back pain [M54.50, G89.29]11/02/2019 Chronic thoracic spine pain [M54.6, G89.29] 11/02/2019 Class 3 severe obesity with serious comorbidity*10/06/2018 03/23/2023 Dental caries [K02.9] 12/15/2020 Fibromyalgia [M79.7] 05/15/2017 Gastroesophageal reflux disease [K21.9] 05/10/2019 Hyperglycemia [R73.9] 12/11/2021 Hyperlipidemia, mixed [E78.2] 08/18/2018 Hypertension, essential [I10] 08/18/2018 Hypokalemia [E87.6] 12/11/2021 Lightheadedness [R42] 12/11/2021 Degenerative disc disease, cervical [M50.30] 12/17/2018 Mixed anxiety depressive disorder [F41.8] 11/22/2019 Neuropathy [G62.9] 12/11/2021 Neuropathy involving both lower extremities [G5*11/26/2017 Neuropathy of lower extremity [G57.90] 11/26/2017 Pain [R52] 12/11/2021 Painful mouth [K13.79] 12/15/2020 Primary osteoarthritis of both knees [M17.0] 12/11/2021 Pulmonary no (more content not included)... [facility] 02-16-2024 Telephone encounter Note Spoke with patient confirmed [facility] is where patient would like faxed. Explained rational of why endocrinology has submit note. Patient verbalized understanding and order re faxed. Catrina Fisher LPN [facility] Work Phone: 02-16-2024 Miscellaneous Notes Spoke with patient confirmed [facility] is where patient would like faxed. Explained rational of why endocrinology has submit note. Patient verbalized understanding and order re faxed. Catrina Fisher LPN Patient calling and states that [facility] did not receive her order for diabetic shoes in December. Asking if this can be resubmitted? Please advise. Patricia Olivares LPN documented in this encounter [facility] 02-15-2024 Telephone encounter Note Patient calling and states that [facility] did not receive her order for diabetic shoes in December. Asking if this can be resubmitted? Please advise. Patricia Olivares LPN [facility] 02-10-2024 History of Present illness Narrative [facility] TRANSITIONAL CARE MANAGEMENT (TCM) FOLLOW-UP NOTE Provider Action/FYI: Patient identified by name and date of : YES Spoke to: patient Diagnosis: N/A Summary: Patient reports she is doing "well". Patient stated she has a follow up appointment scheduled with surgery to have sutures removed. Patient reports she will contact PCP office to reschedule TCM next week. Patient stated no refills needed. Patient reports no current needs/ concerns. Health leads screening tool questions performed? N/A N/A Template Clerk plan for next outreach: No further follow-up needed at this time. Signature: Tracey Blakely RN February 10, 2024 documented in this encounter [facility] 01-26-2024 History of Present illness Narrative TRANSITIONAL CARE MANAGEMENT (TCM) COMMUNITY MONITORING PROGRAM - [facility] Provider Action/FYI: SUMMARY: Pt discharged from [facility] on 01/25/24. Admitted for: Osteomyelitis of right foot Patient seen Inpatient PEDRO Visit? No. Patient seen ICARE Program? No. Contact made with patient: Yes Hi my name is Tracey Blakely RN and I am calling from the [facility] General on behalf of your PCP, Arianna Rosales APRN.CORPORATE CONSULTANT I understand you were recently in the hospital so I am calling to check in with you to ensure you are feeling well now that you re home. Do you mind if I ask you a few questions related to your hospital stay and well-being Yes Contact with patient post discharge, spoke to patient. Patient identified by name and . Do you feel your health is BETTER, WORSE, or the SAME since leaving the hospital? Same ACTION TAKEN: Patient indicated symptoms are better or same, no action required. Continue outreach. N/A MEDICATIONS: Many patients have questions or concerns about their medications once they are home. Do you have any questions about taking your medications or which medication you should be on? No Do you need any medication refills at this time, including any of the medications you might take only when needed? No ACTION TAKEN: No action required For RNs or Pharmacy completing outreach ONLY, was a medication review completed? Yes Current/Discharged Medications reviewed: Yes Medication List Medication Directions Comments Action/Plan albuterol HFA (PROAIR HFA) 90 mcg/actuation inhaler Inhale 2 Puffs as instructed every 4 hours as needed for wheezing/shortness of breath. aspirin 81 mg chewable tablet Take 81 mg by mouth. atorvastatin (LIPITOR) 40 mg tablet Take 1 tablet by mouth once daily. blood sugar diagnostic test strip Accu chek guide me test strips patient checks sugars 3 times daily Dx E11.42 Blood-Glucose Meter (ACCU-CHEK GUIDE ME GLUCOSE MTR) patient checks sugars 3 times daily Dx E11.42 CPAP/BIPAP/OTHER Type .CPAPSettings into a note to see current settings/supplies/DME information. dapagliflozin propanediol (FARXIGA) 10 mg tablet Take 1 tablet by mouth daily with breakfast. Discontinued: 01/25/2024 3:24 PM gabapentin (NEURONTIN) 600 mg tablet Take 1 tablet by mouth daily at bedtime for 90 days. Discontinued: 01/25/2024 3:24 PM insulin glargine U-300 conc (TOUJEO MAX) 300 unit/mL (3 mL) inpn Inject 55 Units subcutaneously daily at bedtime. Discontinued: 01/25/2024 3:24 PM insulin lispro (HUMALOG KWIKPEN INSULIN) 100 unit/mL Inject 35 Units subcutaneously three times a day before meals. If BS over 200 take 30 units. If BS is under 200 but greater than 150 take 25 units. Lancets (ACCU-CHEK FASTCLIX LANCET DRUM) lancets USE 1 LANCET TO CHECK BLOOD SUGAR THREE TIMES DAILY lisinopril (ZESTRIL) 20 mg tablet Take 1 tablet by mouth once daily. metoprolol tartrate, short acting, (LOPRESSOR) 25 mg tablet Take 1 tablet by mouth two times a day. MULTI-VITAMIN ORAL Take 1 tablet by mouth once daily. oxyCODONE IR (ROXICODONE) 5 mg immediate release tablet Take 1 tablet by mouth every 6 hours as needed for pain for up to 3 days. OZEMPIC 1 mg/dose (4 mg/3 mL) pen INJECT THE CONTENTS OF 1 PEN UNDER THE SKIN ONCE WEEKLY pantoprazole DR (PROTONIX) 40 mg tablet Take 1 tablet by mouth once daily. SOCIAL: We would like to make sure you have what you need so that your basics needs are met - including your personal safety. HEALTH LEADS SCREENING TOOL QUESTIONS: Do you often feel you lack companionship? No Do you ever need help reading or understanding hospital materials? No In the last 12 months, have you changed how you take medications to save money? No In the past 12 months, has lack of transportation kept you from medical appointments, work or getting things you need like food, or supplies? No In the last 12 months, did you ever eat less than you felt you should because there wasn't enough money for food? No During the winter, do you anticipate having a problem paying your heating bill? No In the next 2 months, are you worried you might not have stable housing? No Would you like to speak with a social work pilot steam yacht to help give you support for any of these needs? No It can be normal to feel anxious or down during a time like this. Would you like to talk to a mental health professional about how you have been feeling? No ACTION TAKEN: No action taken DISCHARGE INTRUCTIONS: Your discharge instructions / After Visit Summary (AVS) are important in guiding you through the recovery process. Do you have any questions related to your discharge instructions? No Do you have all the necessary equipment and supplies at home? Yes ACTION TAKEN: No action required WRAP AROUND SERVICES: N/A Patient educated on importance of primary care provider follow up visit as well as specialty provider follow up visits as indicated. Inform the patient that if they have any questions or concerns prior to that appointment, to call their Primary Care Provider 's office right away. Primary care provider first education provided. I would like to help you schedule a hospital follow-up virtual or telephone visit with your PCP. ACTION TAKEN: [facility] Primary Care Provider Visit Scheduled: Yes - Appt date: 02/09/24 with PCP Your doctor would like us to remind you of the recommendations regarding the coronavirus (Covid19) outbreak: Avoid public places as much as possible. Avoid close contact (within 6 feet) with others you don't live with, especially if they are sick. Stay home if you are sick. Wash your hands regularly for at least 20 seconds with soap and water. Wear a cloth mask in public places to help reduce community spread. Do not go to your Doctor's office unless instructed to do so. For any non-emergency symptoms, call your Doctor's office to get instructions on how to manage (we might recommend a telephone or virtual visit). For emergency symptoms, proceed to Emergency Department as usual but inform them of cough and fever symptoms KATHLEEN if present (or call on the way if possible). documented in this encounter [facility] 01-24-2024 Note HNO ID: [id number] Author: CASH HURT MD Service: Hospital Medicine Author Type: Physician Type: Progress Notes Filed: 01/24/2024 14:57 Note Text: DEPARTMENT OF HOSPITAL MEDICINE PROGRESS NOTE SERVICE DATE: 01/24/2024 SERVICE TIME: 2:34 PM Hospital Medicine/Primary Attending: Cash Hurt MD NIGHT AND WEEKEND COVERAGE: [place] COVERAGE: Nights: [phone], please page [facility] Hospitalist Night coverage pager [phone]. Reason for Admission: Cellulitis surrounding osteomyelitis to the of the distal tip of the distal phalanx of the right middle toe and a diabetic with moderate glucose control and diabetic neuropathy INTERVAL HPI: Patient feeling much better there is no drainage she is able to walk on her heel and is waiting cultures to come back with hopes to go home soon on oral antibiotics CHECK LIST Goal for glucose 100-180 At goal Cultures negative thus far other than those noted:None Vital signs: Reviewed labs Problem list reviewed Medication list reviewed Reviewed new notes Probable discharge- ASSESSMENT/PLAN Increased bedtime insulin to 48 units Lantus and prandial insulin to 16 units lispro continuing sliding scale 3 Was negative thus far continuing vancomycin IV with IV ceftriaxone Principal Problem: Osteomyelitis (HCC) Active Problems: Paroxysmal nocturnal dyspnea Diabetic polyneuropathy associated with type 2 diabetes mellitus (HCC) Type 2 diabetes mellitus without complication, with long-term current use of insulin (HCC) Overview: Last Assessment AND Plan: Patient states her blood sugars have been running high (200's). She was instructed to take her full dose of long acting insulin the night before surgery and to hold short acting insulin and oral diabetic medication day of surgery. Undiagnosed cardiac murmurs Overview: Most likely aortic stenosis or aortic sclerosis-she does have paradoxically split S2 but normal EKG Hypertension, essential Overview: Last Assessment AND Plan: Per primary care provider. As discussed within your appointment, your blood pressure is 143/93. I would like you to continue to take medications as ordered, and increase activity as tolerated (goal is 150 minutes of cardiovascular activity weekly), I would also like you to reduce salt intake as this can cause fluid retention, and eat a heart healthy diet. Continue to monitor blood pressure at home in the morning upon awakening and in the evening prior to going to bed. Bring blood pressure log and cuff to your next visit. Your goal blood pressure is to be between 90/60 - 140/90. Obesity, Class II, BMI 35-39.9 Spinal stenosis of lumbar region without neurogenic claudication Full code status Resolved Problems: * No resolved hospital problems. * Consultants: Dr. Gomez for podiatry Dr. Mercado for infectious disease PROCEDURES: 01/21 R 3rd toe amputation at MTPJ IANDD R foot deep multiple areas level of bone sharp excisional nonselective debridement into level of bone (post debridement [id number] ) Disposition: To be determined EK01/21/2024 sinus rhythm normal EKG no prior Echocardiogram: 01/21/2024 - The left ventricle is normal in size. Left ventricular systolic function is normal. EF = 68 ? 5% (2D biplane) Normal left ventricular diastolic function. - The right ventricle is normal in size. Right ventricular systolic function is normal. - There are no significant valvular abnormalities Beta natruretic peptide 56 (low) Recent Labs 01/21/24 0531 01/20/24 1118 CK 61 -- MCV 85.6 86.9 MCH 28.0 28.7 MPV 10.0 10.0 Recent Labs 01/21/24 0531 01/20/24 1118 WBC 9.26 7.36 RBC 4.25 4.35 HB 11.9 12.5 HCT 36.4 37.8 PLT 302 284 MCV 85.6 86.9 MCH 28.0 28.7 MPV 10.0 10.0 ABSNEUT 6.10 4.60 NEUTP 65.9 62.5 LYMPHP 21.0 26.0 MONOP 8.4 7.7 EODINP 3.9 3.1 Recent Labs 01/24/24 0732 01/23/24 0710 01/22/24 1324 01/21/24 0531 01/20/24 1118 GLUC 211* 209* 154* < > 288* NA 138 137 140 < > 136 K 3.9 4.1 3.8 < > 4.4 CHLOR 105 101 103 < > 101 CO2 24 26 29 < > 24 CREAT 0.69 0.77 0.77 < > 0.59 BUN 16 17 18 < > 14 ANION 9 10 8* < > 11 CA 8.6 8.6 8.4* < > 9.3 TPROT -- -- -- -- 7.9 ALB 3.3* 3.6* 3.5* < > 4.0 TBILI -- -- -- -- 0.5 ALKPHOS -- -- -- -- 99 AST -- -- -- -- 13 ALT -- -- -- -- 11 < > = values in this interval not displayed. Recent Labs 01/21/24 0531 01/20/24 1847 APTT 29.3 -- INR -- <0.9* Recent Labs 01/20/24 1118 CRP 0.7 Recent Labs 01/24/24 1145 01/24/24 0744 01/24/24 0732 01/23/24 1941 01/23/24 1127 01/23/24 0710 01/22/24 1656 01/22/24 1324 GLUC -- -- 211* -- -- 209* -- 154* PCGLUCOSE 92 206* -- 172* < > -- < > -- < > = values in this interval not displayed. Recent Labs 01/20/24 1118 LACT 1.9 Recent Labs 01/24/24 0732 01/23/24 0710 01/22/24 1324 BUN 16 17 18 CREAT 0.69 (more content not included)... [facility] 01-23-2024 Note HNO ID: [id number] Author: CASH HURT MD Service: Hospital Medicine Author Type: Physician Type: Progress Notes Filed: 01/23/2024 16:28 Note Text: DEPARTMENT OF HOSPITAL MEDICINE PROGRESS NOTE SERVICE DATE: 01/23/2024 SERVICE TIME: 4:13 PM Hospital Medicine/Primary Attending: Cash Hurt MD NIGHT AND WEEKEND COVERAGE: [place] COVERAGE: Nights: [phone], please page [facility] Night coverage pager [phone]. Reason for Admission: Cellulitis surrounding osteomyelitis to the of the distal tip of the distal phalanx of the right middle toe and a diabetic with moderate glucose control and diabetic neuropathy INTERVAL HPI: Patient doing well. Cultures negative thus far. Somewhat groggy requiring pain medication after the anesthetic wore off on her foot. CHECK LIST Goal for glucose 100-180 At goal Cultures negative thus far other than those noted:None Vital signs: Reviewed labs Problem list reviewed Medication list reviewed Reviewed new notes Probable discharge- ASSESSMENT/PLAN Glucose at goal today had a bump in her glucose to 194 last night after surgery Echo is normal paroxysmal nocturnal dyspnea difficult to say what the etiology is. Principal Problem: Osteomyelitis (HCC) Active Problems: Paroxysmal nocturnal dyspnea Diabetic polyneuropathy associated with type 2 diabetes mellitus (HCC) Type 2 diabetes mellitus without complication, with long-term current use of insulin (HCC) Overview: Last Assessment AND Plan: Patient states her blood sugars have been running high (200's). She was instructed to take her full dose of long acting insulin the night before surgery and to hold short acting insulin and oral diabetic medication day of surgery. Undiagnosed cardiac murmurs Overview: Most likely aortic stenosis or aortic sclerosis-she does have paradoxically split S2 but normal EKG Hypertension, essential Overview: Last Assessment AND Plan: Per primary care provider. As discussed within your appointment, your blood pressure is 143/93. I would like you to continue to take medications as ordered, and increase activity as tolerated (goal is 150 minutes of cardiovascular activity weekly), I would also like you to reduce salt intake as this can cause fluid retention, and eat a heart healthy diet. Continue to monitor blood pressure at home in the morning upon awakening and in the evening prior to going to bed. Bring blood pressure log and cuff to your next visit. Your goal blood pressure is to be between 90/60 - 140/90. Obesity, Class II, BMI 35-39.9 Spinal stenosis of lumbar region without neurogenic claudication Full code status Resolved Problems: * No resolved hospital problems. * Consultants: Dr. Gomez for podiatry Dr. Mercado for infectious disease PROCEDURES: 01/21 R 3rd toe amputation at MTPJ IANDD R foot deep multiple areas level of bone sharp excisional nonselective debridement into level of bone (post debridement [id number] ) Disposition: To be determined EK01/21/2024 sinus rhythm normal EKG no prior Echocardiogram: 01/21/2024 - The left ventricle is normal in size. Left ventricular systolic function is normal. EF = 68 ? 5% (2D biplane) Normal left ventricular diastolic function. - The right ventricle is normal in size. Right ventricular systolic function is normal. - There are no significant valvular abnormalities Beta natruretic peptide 56 (low) Recent Labs 01/21/24 0531 01/20/24 1118 CK 61 -- MCV 85.6 86.9 MCH 28.0 28.7 MPV 10.0 10.0 Recent Labs 01/21/24 0531 01/20/24 1118 WBC 9.26 7.36 RBC 4.25 4.35 HB 11.9 12.5 HCT 36.4 37.8 PLT 302 284 MCV 85.6 86.9 MCH 28.0 28.7 MPV 10.0 10.0 ABSNEUT 6.10 4.60 NEUTP 65.9 62.5 LYMPHP 21.0 26.0 MONOP 8.4 7.7 EODINP 3.9 3.1 Recent Labs 01/23/24 0710 01/22/24 1324 01/21/24 0531 01/20/24 1118 GLUC 209* 154* 176* 288* NA 137 140 136 136 K 4.1 3.8 4.1 4.4 CHLOR 101 103 101 101 CO2 26 29 28 24 CREAT 0.77 0.77 0.70 0.59 BUN 17 18 16 14 ANION 10 8* 7* 11 CA 8.6 8.4* 8.8 9.3 TPROT -- -- -- 7.9 ALB 3.6* 3.5* 3.6* 4.0 TBILI -- -- -- 0.5 ALKPHOS -- -- -- 99 AST -- -- -- 13 ALT -- -- -- 11 Recent Labs 01/21/24 0531 01/20/24 1847 APTT 29.3 -- INR -- <0.9* Recent Labs 01/20/24 1118 CRP 0.7 Recent Labs 01/23/24 1127 01/23/24 0710 01/23/24 0706 01/22/24 2256 01/22/24 1656 01/22/24 1324 01/21/24 0742 01/21/24 0531 GLUC -- 209* -- -- -- 154* -- 176* PCGLUCOSE 120* -- 194* 112* < > -- < > -- < > = values in this interval not displayed. Recent Labs 01/20/24 1118 LACT 1.9 Recent Labs 01/23/24 0710 01/22/24 1324 01/21/24 0531 BUN 17 18 16 CREAT 0.77 0.77 0.70 CA 8.6 8.4* 8.8 P 3.7 4.4 3.7 MG 1.9 2.0 2.0 Most recent labs 01/13/22 PVR bilateral ankles full report under chart review-cardiac Pressures Br (more content not included)... [facility] 01-22-2024 Note HNO ID: [id number] Author: CASH HURT MD Service: Hospital Medicine Author Type: Physician Type: Progress Notes Filed: 01/22/2024 18:26 Note Text: DEPARTMENT OF HOSPITAL MEDICINE PROGRESS NOTE SERVICE DATE: 01/22/2024 SERVICE TIME: 6:12 PM Hospital Medicine/Primary Attending: Cash Hurt MD NIGHT AND WEEKEND COVERAGE: [place] COVERAGE: Nights: [phone], please page [facility] Night coverage pager [phone]. Reason for Admission: Cellulitis surrounding osteomyelitis to the of the distal tip of the distal phalanx of the right middle toe and a diabetic with moderate glucose control and diabetic neuropathy INTERVAL HPI: Chest x-ray pending as is visit by podiatry to schedule surgery-cellulitis improved on toe rubber cutting machine tender at the tip CHECK LIST Goal for glucose 100-180 At goal Cultures negative thus far other than those noted:None Vital signs: Reviewed labs Problem list reviewed Medication list reviewed Reviewed new notes Probable discharge- ASSESSMENT/PLAN Glucose at goal Patient with occasional nocturnal dyspnea waking up short of breath for exam it looks like it is probably postnasal drip as she has what appears to be an allergic sinusitis with uvular edema. However she does have an aortic stenosis murmur paradoxically split S2. Her EKG is normal getting echocardiogram as important though this is left likely to require much anesthesia with her diabetic neuropathy. PA lateral chest [id number] left lingula Patient in good spirits postoperatively Principal Problem: Osteomyelitis (HCC) Active Problems: Paroxysmal nocturnal dyspnea Diabetic polyneuropathy associated with type 2 diabetes mellitus (HCC) Type 2 diabetes mellitus without complication, with long-term current use of insulin (HCC) Overview: Last Assessment AND Plan: Patient states her blood sugars have been running high (200's). She was instructed to take her full dose of long acting insulin the night before surgery and to hold short acting insulin and oral diabetic medication day of surgery. Undiagnosed cardiac murmurs Overview: Most likely aortic stenosis or aortic sclerosis-she does have paradoxically split S2 but normal EKG Hypertension, essential Overview: Last Assessment AND Plan: Per primary care provider. As discussed within your appointment, your blood pressure is 143/93. I would like you to continue to take medications as ordered, and increase activity as tolerated (goal is 150 minutes of cardiovascular activity weekly), I would also like you to reduce salt intake as this can cause fluid retention, and eat a heart healthy diet. Continue to monitor blood pressure at home in the morning upon awakening and in the evening prior to going to bed. Bring blood pressure log and cuff to your next visit. Your goal blood pressure is to be between 90/60 - 140/90. Obesity, Class II, BMI 35-39.9 Spinal stenosis of lumbar region without neurogenic claudication Full code status Resolved Problems: * No resolved hospital problems. * Consultants: Dr. Gomez for podiatry Dr. Mercado for infectious disease PROCEDURES: 01/21 R 3rd toe amputation at MTPJ IANDD R foot deep multiple areas level of bone sharp excisional nonselective debridement into level of bone (post debridement [id number] ) Disposition: To be determined EK01/21/2024 sinus rhythm normal EKG no prior Echocardiogram: None Beta natruretic peptide 56 (low) Recent Labs 01/21/24 0531 01/20/24 1118 CK 61 -- MCV 85.6 86.9 MCH 28.0 28.7 MPV 10.0 10.0 Recent Labs 01/21/24 0531 01/20/24 1118 WBC 9.26 7.36 RBC 4.25 4.35 HB 11.9 12.5 HCT 36.4 37.8 PLT 302 284 MCV 85.6 86.9 MCH 28.0 28.7 MPV 10.0 10.0 ABSNEUT 6.10 4.60 NEUTP 65.9 62.5 LYMPHP 21.0 26.0 MONOP 8.4 7.7 EODINP 3.9 3.1 Recent Labs 01/22/24 1324 01/21/24 0531 01/20/24 1118 GLUC 154* 176* 288* NA 140 136 136 K 3.8 4.1 4.4 CHLOR 103 101 101 CO2 29 24 CREAT 0.77 0.70 0.59 BUN 18 16 14 ANION 8* 7* 11 CA 8.4* 8.8 9.3 TPROT -- -- 7.9 ALB 3.5* 3.6* 4.0 TBILI -- -- 0.5 ALKPHOS -- -- 99 AST -- -- 13 ALT -- -- 11 Recent Labs 01/21/24 0531 01/20/24 1847 APTT 29.3 -- INR -- <0.9* Recent Labs 01/20/24 1118 CRP 0.7 Recent Labs 01/22/24 1656 01/22/24 1324 01/22/24 1247 01/22/24 0737 01/21/24 0742 01/21/24 0531 01/20/24 1501 01/20/24 1118 GLUC -- 154* -- -- -- 176* -- 288* PCGLUCOSE 110* -- 143* 152* < > -- < > -- < > = values in this interval not displayed. Recent Labs 01/20/24 1118 LACT 1.9 Recent Labs 01/22/24 1324 01/21/24 0531 01/20/24 1118 BUN 18 16 14 CREAT 0.77 0.70 0.59 CA 8.4* 8.8 9.3 P 4.4 3.7 -- MG 2.0 2.0 -- Most recent labs 01/13/22 PVR bilateral ankles full report under chart review-cardiac Pressures Brachial: 150 mmHg Ankle dorsalis pedis: 161 (more content not included)... [facility] 01-22-2024 Note HNO ID: [id number] Author: YANELI NGO RN Service: Care Management Author Type: Registered Nurse Type: Marielena Mgt Progress Note Filed: 01/22/2024 07:56 Note Text: CARE MANAGEMENT PROGRESS NOTE SERVICE DATE: 01/22/2024 SERVICE TIME: 7:54 AM LOS: 2 days Needs Prior to Discharge: Facility or Agency Choices;Home Care Order;IV Antibiotics;OT/PT Evaluation;Other: See Comment;Wound Care;To Be Determined (Medical Clearance) EMR reviewed. Patient is scheduled for OR for right third toe amputation today. PT and OT evals may be needed post-op to assist with discharge planning needs. Patient is requesting Rx for a cane. Discharge antibiotic needs to be determined. CM assigned will continue to follow. SIGNATURE: Yaneli Ngo RN PATIENT NAME: Juana Handy DATE: January 22, 2024 TIME: 7:54 AM PAGER/CONTACT #: [phone] [facility] 01-21-2024 Note HNO ID: [id number] Author: YANELI NGO RN Service: Care Management Author Type: Registered Nurse Type: Care Mgt Initial Assessment Filed: 01/21/2024 12:10 Note Text: CARE MANAGEMENT: ASSESSMENT AND DISCHARGE PLAN SERVICE DATE: January 21, 2024 SERVICE TIME: 12:07 PM PCP: Arianna Rosales APRN.CNP Primary Contact: Extended Emergency Contact Information Primary Emergency Contact: Donna Fisher Address: [address] [place] [address] [facility] Mobile Relation: Daughter Secondary Emergency Contact: Kal Segal Address: [address] [place] [address] [facility] Mobile Relation: Ex Spouse Admission Status: Inpatient Insurance Provider: [facility] DUAL COMPLETE HMO POS SNP Discharge Planning requested by: Per Department Practice Potential Transition Plans Home;Home Care;Home Care Pharmacy;Home OT/PT;To Be Determined Advance Directives Current Advance Directive: None Stripping Shovel Oiler Attempted to Assist with AD Completion: Yes Action: Patient Unwilling Current Living Arrangements and Support Lives with: Children, Family members Type of Residence: Private Residence (House) Does the patient have to climb stairs at home?: stairs outside the home Support: Children, Family members How do you manage to accomplish the following: Independent: Ambulation;Bathe/Shower;Dress;Jacquelyn ls/Meal Prep;Going to the bathroom;Medication Management;Transportation to appointments/community Current Services/Equipment Current Post-Acute Service(s): None Discharge Planning Patient Goal(s): Be able to go home, General wellness [place] of Choice Explained: [place] of Choice Given: No Reason Not Given: No placements necessary Are you interested in bedside delivery of your medications? No , preferred community Pharmacy is [facility]. Discharge Planning Participant(s): Patient Caregiver Assessment: Caregiver is ready, willing and able to meet the patient's needs as recommended by the inter-professional team: Other: See Comment (TBD) Transport at Discharge: Transportation Arrangements: To Be Determined Needs Prior to Discharge: Needs Prior to Discharge: To Be Determined;Accepting Facility;Facility or Agency Choices;Home Care Order;OT/PT Evaluation;Other: See Comment;IV Antibiotics (Medical Clearance) Post-Acute Discharge Plan: EMR reviewed and CM assessment complete. 58 year old patient admitted for right third toe Osteomyelitis. JEREMY TONY met with the patient at bedside to discuss discharge planning needs. She reportedly lives with multiple family members in a single level modular home with three steps to enter and was [employer]. Plan OR tomorrow for toe amputation. Discharge needs to be determined. CM assigned will continue to follow. SIGNATURE: Yaneli Ngo RN PATIENT NAME: Juana Handy DATE: January 21, 2024 TIME: 12:07 PM CONTACT #: [phone] [facility] 01-21-2024 Note HNO ID: [id number] Author: CASH HURT MD Service: Hospital Medicine Author Type: Physician Type: Progress Notes Filed: 01/21/2024 08:33 Note Text: DEPARTMENT OF HOSPITAL MEDICINE PROGRESS NOTE SERVICE DATE: 01/21/2024 SERVICE TIME: 7:25 AM Hospital Medicine/Primary Attending: Cash Hurt MD NIGHT AND WEEKEND COVERAGE: [place] COVERAGE: Nights: [phone], please page [facility] Night coverage pager [phone]. Reason for Admission: Cellulitis surrounding osteomyelitis to the of the distal tip of the distal phalanx of the right middle toe and a diabetic with moderate glucose control and diabetic neuropathy INTERVAL HPI: Chest x-ray pending as is visit by podiatry to schedule surgery-cellulitis improved on toe rubber cutting machine tender at the tip CHECK LIST Goal for glucose 100-180 At goal Cultures negative thus far other than those noted:None Vital signs: Reviewed labs Problem list reviewed Medication list reviewed Reviewed new notes Probable discharge- ASSESSMENT/PLAN Morning sugar 174 will follow sugars and try to have her at goal for surgery Patient with occasional nocturnal dyspnea waking up short of breath for exam it looks like it is probably postnasal drip as she has what appears to be an allergic sinusitis with uvular edema. However she does have an aortic stenosis murmur paradoxically split S2. Her EKG is normal getting echocardiogram as important though this is left likely to require much anesthesia with her diabetic neuropathy. PA lateral chest x-ray pending Medically stabilized for urgent foot surgery Principal Problem: Osteomyelitis (HCC) Active Problems: Obesity, Class II, BMI 35-39.9 Hypertension, essential Overview: Last Assessment AND Plan: As discussed within your appointment, your blood pressure is 143/93. I would like you to continue to take medications as ordered, and increase activity as tolerated (goal is 150 minutes of cardiovascular activity weekly), I would also like you to reduce salt intake as this can cause fluid retention, and eat a heart healthy diet. Continue to monitor blood pressure at home in the morning upon awakening and in the evening prior to going to bed. Bring blood pressure log and cuff to your next visit. Your goal blood pressure is to be between 90/60 - 140/90. Spinal stenosis of lumbar region without neurogenic claudication Type 2 diabetes mellitus without complication, with long-term current use of insulin (HCC) Overview: Last Assessment AND Plan: Patient states her blood sugars have been running high (200's). She was instructed to take her full dose of long acting insulin the night before surgery and to hold short acting insulin and oral diabetic medication day of surgery. Undiagnosed cardiac murmurs Resolved Problems: * No resolved hospital problems. * Consultants: Dr. Gomez for podiatry Dr. Mercado for infectious disease PROCEDURES: NONE Disposition: To be determined EK01/21/2024 sinus rhythm normal EKG no prior Echocardiogram: None Beta natruretic peptide 56 (low) Recent Labs 01/21/24 0501/20/24 1118 CK 61 -- MCV 85.6 86.9 MCH 28.0 28.7 MPV 10.0 10.0 Recent Labs 01/21/24 0531 01/20/24 1118 WBC 9.26 7.36 RBC 4.25 4.35 HB 11.9 12.5 HCT 36.4 37.8 PLT 302 284 MCV 85.6 86.9 MCH 28.0 28.7 MPV 10.0 10.0 ABSNEUT 6.10 4.60 NEUTP 65.9 62.5 LYMPHP 21.0 26.0 MONOP 8.4 7.7 EODINP 3.9 3.1 Recent Labs 01/21/24 0531 01/20/24 1118 GLUC 176* 288* NA 136 136 K 4.1 4.4 CHLOR 101 101 CO2 28 24 CREAT 0.70 0.59 BUN 16 14 ANION 7* 11 CA 8.8 9.3 TPROT -- 7.9 ALB 3.6* 4.0 TBILI -- 0.5 ALKPHOS -- 99 AST -- 13 ALT -- 11 Recent Labs 01/21/24 0531 01/20/24 1847 APTT 29.3 -- INR -- <0.9* Recent Labs 01/20/24 1118 CRP 0.7 Recent Labs 01/21/24 0742 01/21/24 0531 01/20/24 2000 01/20/24 1725 01/20/24 1501 01/20/24 1118 GLUC -- 176* -- -- -- 288* PCGLUCOSE 159* -- 238* 249* < > -- < > = values in this interval not displayed. Recent Labs 01/20/24 1118 LACT 1.9 Recent Labs 01/21/24 0531 01/20/24 1118 BUN 16 14 CREAT 0.70 0.59 CA 8.8 9.3 P 3.7 -- MG 2.0 -- Most recent labs 01/13/22 PVR bilateral ankles full report under chart review-cardiac Pressures Brachial: 150 mmHg Ankle dorsalis pedis: 161 mmHg SUSHILA: 1.01 Ankle posterior tibial: 175 mmHg SUSHILA: 1.09 Digit: 175 mmHg HOSPITAL COURSE: Juana Handy is a 58 year old female presented with past medical history of primary hypertension, high cholesterol, poorly controlled diabetes, family manager noted heart murmur that I hear was not sure that there was a murmur or not but family doctor did not hear it no evaluation done, presenting with persistent pain in the distal tip of the right third toe no sy (more content not included)... [facility] 01-20-2024 Telephone encounter Note Transfer request from [place] [facility]: Reason for transfer: Rt third toe osteomyelitis. 58 year old F with hx of T1DM on insulin who presented to [place] [facility] with right third toe wound for few weeks. Pt was recently finished course of oral antibiotics. Vitals stable. Labs unremarkable. Xray right foot showed Rt third toe osteomyelitis. Pt is started on vanco and ceftriaxone in the ED. Transfer center cannot reach Dr. Holbrook at this point and left . Pt is accepted to [facility]. Karuna Vance MD [facility] Work Phone: 01-20-2024 Miscellaneous Notes Transfer request from [place] [facility]: Reason for transfer: Rt third toe osteomyelitis. 58 year old F with hx of T1DM on insulin who presented to [place] [facility] with right third toe wound for few weeks. Pt was recently finished course of oral antibiotics. Vitals stable. Labs unremarkable. Xray right foot showed Rt third toe osteomyelitis. Pt is started on vanco and ceftriaxone in the ED. Transfer center cannot reach Dr. Holbrook at this point and left VM. Pt is accepted to [facility]. Karuna Vance MD documented in this encounter [facility] 01-11-2024 Telephone encounter Note Patient is informed Michelle Hogn MA [facility] 01-11-2024 Miscellaneous Notes Patient is informed Michelle Hong MA Left message on patients vm with all information. Also sent my chart. Kristin Donaldson MA ----- Message from Arianna Rosales APRN.CORPORATE CONSULTANT sent at 01/10/2024 11:53 AM EDT ----- Patient has osteomyelitis of her right middle toe. She needs to go to the ER for evaluation, IV antibiotics, and will probably need admission. documented in this encounter [facility] 01-11-2024 Telephone encounter Note Left message on patients vm with all information. Also sent my chart. Kristin Donaldson MA [facility] 01-11-2024 Telephone encounter Note ----- Message from Arianna Rosales APRN.CNP sent at 01/10/2024 11:53 AM EDT ----- Patient has osteomyelitis of her right middle toe. She needs to go to the ER for evaluation, IV antibiotics, and will probably need admission. [facility] 01-05-2024 History of Present illness Narrative Radiology Service Progress Note PATIENT NAME: Juana Handy DATE OF SERVICE: January 05, 2024 TIME: 5:12 PM PATIENT IDENTITY VERIFICATION COMPLETED USING TWO (2) IDENTIFIERS: Name and Date of confirmed by patient verbally. FALL SCREENING: Has the patient had 2 falls in the last year or 1 fall with injury or currently using an Ambulatory Assistive Device (Walker, Cane, Wheelchair, Crutches, etc.)? No PATIENT GENDER DATA: Female. status: : No status: NO. PATIENT RELEVANT IMPLANT DATA REVIEWED: Not Applicable PATIENT PRESENTS WITH AN IMPLANTABLE OR ATTACHED DIRECTOR OF PUPIL PERSONNEL PROGRAM: No RADIOLOGY DEPARTMENT: General X-ray: Exam(s) Completed: Lower Extremity X-Ray(s): Toes, Right PERIPHERAL IV DATA: Not applicable SIGNED BY: RT aMdhav(R) January 05, 2024 5:12 PM documented in this encounter [facility] 01-05-2024 History of Present illness Narrative Images from the original note were not included. CHIEF COMPLAINT: Juana Handy is a 58 year old female who presents for F/U HTN 3 Month. I reviewed past medical, surgical, social, and family histories today and updated chart. Allergies, chronic medications, and supplements were also reviewed. Right middle toe still sore on the tip of her toe. It is no longer open but it is still red and swollen. Completed course of Keflex in September but hasn't follow up since there. Painful. No fevers. Diabetic shoes ordered from podiatry. Order faxed to [facility] to [facility]. She does not check her BP regularly at home. Denies any CP, SOB, dizziness, palpitations. She follows with [facility] for her diabetes (Dr. Abraham Valadez in [place]) but she is confused about her insulin directions. She has different directions on her paperwork from what is on the medication from the pharmacy. The history is provided by the patient. PAST MEDICAL HISTORY Diagnosis Date Diabetes mellitus (HCC) Essential hypertension Fibromyalgia High cholesterol PAST SURGICAL HISTORY Procedure Laterality Date BACK SURGERY HX Social History Tobacco Use Smoking status: Never Smokeless tobacco: Never Vaping Use Vaping Use: Never used Substance Use Topics Alcohol use: Never Drug use: Never ALLERGIES Allergen Reactions Lavender (Lavandula* Rash Metformin GI Upset Latex Rash Family History Problem Relation Age of Onset Diabetes Brother Current Outpatient Medications Medication Sig Dispense Refill OZEMPIC 1 mg/dose (4 mg/3 mL) pen INJECT THE CONTENTS OF 1 PEN UNDER THE SKIN ONCE WEEKLY insulin glargine U-300 conc (TOUJEO MAX) 300 unit/mL (3 mL) inpn Inject 30 Units subcutaneously daily at bedtime. (Patient taking differently: Inject 55 Units subcutaneously daily at bedtime.) 15 mL 2 atorvastatin (LIPITOR) 40 mg tablet Take 1 tablet by mouth once daily. 90 tablet 1 lisinopril (ZESTRIL) 20 mg tablet Take 1 tablet by mouth once daily. [address] (PROTONIX) 40 mg tablet Take 1 tablet by mouth once daily. 90 tablet 1 metoprolol tartrate, short acting, (LOPRESSOR) 25 mg tablet Take 1 tablet by mouth two times a day. 90 tablet 1 Lancets (ACCU-CHEK FASTCLIX LANCET DRUM) lancets USE 1 LANCET TO CHECK BLOOD SUGAR THREE TIMES DAILY 120 Each 2 albuterol HFA (PROAIR HFA) 90 mcg/actuation inhaler Inhale 2 Puffs as instructed every 4 hours as needed for wheezing/shortness of breath. 1 Each 2 insulin lispro (HUMALOG KWIKPEN INSULIN) 100 unit/mL Inject 25-30 Units subcutaneously three times a day before meals. If BS over 200 take 30 units. If BS is under 200 but greater than 150 take 25 units. (Patient taking differently: Inject 35 Units subcutaneously three times a day before meals. If BS over 200 take 30 units. If BS is under 200 but greater than 150 take 25 units.) 9 Each 0 gabapentin (NEURONTIN) 600 mg tablet Take 1 tablet by mouth two times a day for 90 days. 60 tablet 2 CPAP/BIPAP/OTHER Type .CPAPSettings into a note to see current settings/supplies/DME information. 1 Each 0 dapagliflozin propanediol (FARXIGA) 10 mg tablet Take 1 tablet by mouth daily with breakfast. 30 tablet 2 blood sugar diagnostic test strip Accu chek guide me test strips patient checks sugars 3 times daily Dx E11.42 100 Each 1 MULTI-VITAMIN ORAL Take 1 tablet by mouth once daily. Blood-Glucose Meter (ACCU-CHEK GUIDE ME GLUCOSE MTR) patient checks sugars 3 times daily Dx E11.42 1 Each 0 aspirin 81 mg chewable tablet Take 81 mg by mouth. No current facility-administered medications for this visit. Review of Systems Constitutional: Negative for chills, diaphoresis, fatigue, fever and unexpected weight change. HENT: Negative. Eyes: Negative. Respiratory: Positive for apnea. Negative for cough, chest tightness, shortness of breath and wheezing. Cardiovascular: Negative for chest pain, palpitations and leg swelling. Gastrointestinal: Negative for abdominal pain, constipation, diarrhea, nausea and vomiting. Endocrine: Negative. Genitourinary: Negative. Musculoskeletal: Positive for arthralgias, back pain and myalgias. Negative for gait problem, joint swelling, neck pain and neck stiffness. Skin: Negative. Allergic/Immunologic: Negative. Neurological: Positive for numbness. Negative for dizziness, light-headedness and headaches. Hematological: Negative. Psychiatric/Behavioral: Positive for dysphoric mood and sleep disturbance. The patient is nervous/anxious. BP 124/72 Pulse 75 Temp 97.7 Resp 16 Ht 5' 4" (1.63m) Wt 221 lb (100.2kg) SpO2 98% BMI 37.92 kg/(m^2). Physical Exam Vitals and nursing note reviewed. Constitutional: Appearance: She is obese. HENT: Head: Normocephalic. Mouth/Throat: Mouth: Mucous membranes are moist. Dentition: Abnormal dentition. Dental caries present. Eyes: Pupils: Pupils are equal, round, and reactive to light. Cardiovascular: Rate and Rhythm: Normal rate and regular rhythm. Heart sounds: Normal heart sounds. No murmur heard. Pulmonary: Effort: Pulmonary effort is normal. Breath sounds: Normal breath sounds. Abdominal: General: Bowel sounds are normal. Palpations: Abdomen is soft. Musculoskeletal: Right lower leg: No edema. Left lower leg: No edema. Feet: Feet: Right foot: Skin integrity: Erythema, warmth and dry skin present. No skin breakdown. Toenail Condition: Right toenails are abnormally thick, long and ingrown. Comments: Right middle toe with erythema, edema, tenderness. Skin: General: Skin is warm and dry. Neurological: Mental Status: She is alert and oriented to person, place, and time. Coordination: Coordination is intact. Gait: Gait is intact. Psychiatric: Mood and Affect: Mood normal. Affect is tearful. Speech: Speech normal. Behavior: Behavior is cooperative. Cognition and Memory: Cognition normal. No visits with results within 1 Day(s) from this visit. Latest known visit with results is: Abstract on 08/25/2023 Component Date Value Ref Range Status Hemoglobin A1C 07/15/2023 8.4 (A) 4 - 6 % Final ASSESSMENT/PLAN: 1. Hypertension, essential - ICD9: 401.9, ICD10: I10 (primary diagnosis) - Controlled - Continue current medications - Recommend home blood pressure monitoring, to bring results to next visit - Encouraged sodium restriction, DASH or Mediterranean diet - Recommend regular aerobic exercise - Discussed need for and benefit of weight loss. BMI 37.93 kg/(m^2) - Follow up in 3 months or sooner if needed for hypertension visit 2. Type 2 diabetes mellitus with peripheral neuropathy (HCC) - ICD9: 250.60, 357.2, ICD10: E11.42 - Uncontrolled. Following with Endocrinology. She is unsure of the current dosage she should be taking of her meal time insulin. Will need to clarify. - Barriers to control: diet adherence, lack of exercise, food insecurity, and unstable living situation - Counseled on healthy diet and regular exercise - Discussed need for and benefit of weight loss. BMI 37.93 kg/(m^2) - LIPID PANEL BASIC - ALBUMIN/CREATININE RATIO, URINE 3. Hyperlipidemia, mixed - ICD9: 272.2, ICD10: E78.2 - Control undetermined, due for labs - Continue current medications - Counseled on healthy diet and regular exercise 4. Neuropathy - ICD9: 355.9, ICD10: G62.9 - Currently on Gabapentin 600 mg BID 5. Swelling of toe of right foot - ICD9: 729.81, ICD10: M79.89 - Concern for osteomyelitis since it is not healing and uncontrolled diabetic - XR today, may need further antibiotics - XR TOE AP/LAT/OBL RIGHT 6. Cellulitis of toe of right foot - ICD9: 681.10, ICD10: L03.031 - Completed course of Keflex in September New medication(s) prescribed today: None. Counseling completed in adopting health behaviors such as avoiding excessive alcohol use, avoid tobacco use, improve nutrition, and engage in physical activities. Copy of written care plan, clinical summary, treatment plan, new medications, goals, and self management requirements were given to patient. Arianna Rosales APRN.JOVANA documented in this encounter [facility] 12-25-2023 Miscellaneous Notes Order for diabetic shoe made Ada Shin DPM Patient called in asking for a script for diabetic shoes. They are asking to have them sent to [place] [facility]. Tori Saleem, JEREMY documented in this encounter [facility] 12-24-2023 Miscellaneous Notes Fax received from [employer] that insulin isn't covered and it needs changed to Insulin Glargine Ori Hong MA documented in this encounter [facility] 08-25-2023 History of Present illness Narrative A1c results noted in [facility] documentation on 07/15/2023. Uploaded into [employer] documented in this encounter [facility] 07-31-2023 History of Present illness Narrative ED Follow Up: Patient discharged from [facility] ED on 07/28/23. 1. How are you feeling since your ED visit? Better Have your symptoms improved or resolved? Yes 2. Were you prescribed any medications while in the ED or advised to stop any medication? Yes - If yes, were you able to fill your prescriptions? Yes -if stopped medication, what was the medication? N/A 3. Were you advised to schedule a follow up appointment with your provider? No - If no, Do you feel like you need an appointment scheduled? No - If yes, Do you need this scheduled now or has this already been scheduled? No 4. Were you able to contact the office or auto phone installer provider prior to your ED visit? No 5. Is there anything else I can do for you today? No Michelle Hong MA documented in this encounter [facility] 06-29-2023 Miscellaneous Notes Form received from [facility] placed on signing tray Michelle Hong MA documented in this encounter [facility] 06-29-2023 History of Present illness Narrative CHIEF COMPLAINT: Juana Handy is a 58 year old female who presents for 3 month diabetes. I reviewed past medical, surgical, social, and family histories today and updated chart. Allergies, chronic medications, and supplements were also reviewed. Will be seeing Dr. Valadez on July 15 Started Farxiga in March and stopped Glimepiride On Ozempic 0.5 mg SQ weekly Did PT- 8 weeks of water aerobics in [place]. Recently had MRI of her thoracic and lumbar back States her pain has been worse since then Following with Dr. Yann Hawley with ortho spine surgery in [place] Needs surgery but needs A1C at 7 Still hasn't receiving her CPAP machine and supplies Faxed to [facility] The history is provided by the patient. No english as a second language instructor was used. PAST MEDICAL HISTORY Diagnosis Date Diabetes mellitus (HCC) Essential hypertension Fibromyalgia High cholesterol PAST SURGICAL HISTORY Procedure Laterality Date BACK SURGERY HX Social History Tobacco Use Smoking status: Never Smokeless tobacco: Never Vaping Use Vaping Use: Never used Substance Use Topics Alcohol use: Never Drug use: Never ALLERGIES Allergen Reactions Lavender (Lavandula* Rash Metformin GI Upset Latex Rash Family History Problem Relation Age of Onset Diabetes Brother Current Outpatient Medications Medication Sig Dispense Refill CPAP/BIPAP/OTHER Type .CPAPSettings into a note to see current settings/supplies/DME information. 1 Each 0 gabapentin (NEURONTIN) 600 mg tablet Take 1 tablet by mouth twice daily for 90 days. 60 tablet 2 insulin lispro (HUMALOG KWIKPEN INSULIN) 100 unit/mL Inject 25-30 Units subcutaneously three times daily before meals. If BS over 200 take 30 units. If BS is under 200 but greater than 150 take 25 units. 9 Each 2 Lancets (ACCU-CHEK FASTCLIX LANCET DRUM) lancets USE 1 LANCET TO CHECK BLOOD SUGAR THREE TIMES DAILY 120 Each 2 insulin glargine (LANTUS SOLOSTAR U-100 INSULIN) 100 unit/mL (3 mL) Inject 50 Units subcutaneously daily at bedtime. 18 Each 1 dapagliflozin propanediol (FARXIGA) 10 mg tablet Take 1 tablet by mouth daily with breakfast. 30 tablet 2 metoprolol tartrate, short acting, (LOPRESSOR) 25 mg tablet Take 1 tablet by mouth twice daily. [address] (PROTONIX) 40 mg tablet Take 1 tablet by mouth once daily. 30 tablet 5 lisinopril (ZESTRIL) 20 mg tablet Take 1 tablet by mouth once daily. 90 tablet 1 atorvastatin (LIPITOR) 40 mg tablet Take 1 tablet by mouth once daily. 90 tablet 1 OZEMPIC 0.25 mg or 0.5 mg (2 mg/3 mL) pen INJECT 0.5 MG. SUBCUTANEOUSLY ONCE A WEEK 9 mL 1 insulin needles, DISPOSABLE, (PEN NEEDLE) 31 gauge x 5/16" 1 Each four times daily. 120 Each 5 blood sugar diagnostic test strip Accu chek guide me test strips patient checks sugars 3 times daily Dx E11.42 100 Each 1 albuterol HFA (PROAIR HFA) 90 mcg/actuation inhaler Inhale 2 Puffs as instructed every 4 hours as needed for wheezing/shortness of breath. 1 Each 2 MULTI-VITAMIN ORAL Take 1 tablet by mouth once daily. Blood-Glucose Meter (ACCU-CHEK GUIDE ME GLUCOSE MTR) patient checks sugars 3 times daily Dx E11.42 1 Each 0 aspirin 81 mg chewable tablet Take 81 mg by mouth. No current facility-administered medications for this visit. Review of Systems Constitutional: Negative for chills, diaphoresis, fatigue, fever and unexpected weight change. HENT: Negative. Eyes: Negative. Respiratory: Positive for apnea. Negative for cough, chest tightness, shortness of breath and wheezing. Cardiovascular: Negative for chest pain, palpitations and leg swelling. Gastrointestinal: Negative for abdominal pain, constipation, diarrhea, nausea and vomiting. Endocrine: Negative. Genitourinary: Negative. Musculoskeletal: Positive for arthralgias, back pain and myalgias. Negative for gait problem, joint swelling, neck pain and neck stiffness. Skin: Negative. Allergic/Immunologic: Negative. Neurological: Positive for numbness. Negative for dizziness, light-headedness and headaches. Hematological: Negative. Psychiatric/Behavioral: Positive for dysphoric mood and sleep disturbance. The patient is nervous/anxious. BP 124/76 Pulse 56 Temp 97.6 Resp 18 Ht 5' 4" (1.63m) Wt 215 lb (97.5kg) SpO2 98% BMI 36.89 kg/(m^2). Physical Exam Vitals and nursing note reviewed. Constitutional: Appearance: She is obese. HENT: Head: Normocephalic. Mouth/Throat: Mouth: Mucous membranes are moist. Dentition: Abnormal dentition. Dental caries present. Eyes: Pupils: Pupils are equal, round, and reactive to light. Cardiovascular: Rate and Rhythm: Normal rate and regular rhythm. Heart sounds: Normal heart sounds. No murmur heard. Pulmonary: Effort: Pulmonary effort is normal. Breath sounds: No wheezing, rhonchi or rales. Abdominal: General: Bowel sounds are normal. There is no distension. Palpations: Abdomen is soft. Tenderness: There is no abdominal tenderness. Musculoskeletal: Right lower leg: No edema. Left lower leg: No edema. Skin: General: Skin is warm and dry. Neurological: Mental Status: She is alert and oriented to person, place, and time. Coordination: Coordination is intact. Gait: Gait is intact. Psychiatric: Mood and Affect: Mood normal. Affect is tearful. Speech: Speech normal. Behavior: Behavior is cooperative. Cognition and Memory: Cognition normal. No visits with results within 1 Day(s) from this visit. Latest known visit with results is: Office Visit on 03/23/2023 Component Date Value Ref Range Status Hemoglobin A1C (POCT) 03/23/2023 10.4 (A) 4.2 - 5.6 % Final Comment: Location:[facility], [address] [place] [address], [id number] Point of care (POC) Hemoglobin A1c (HGBA1C) testing is intended to assess glucose control and provide a management tool for patients known to have diabetes and their healthcare providers. Target HGBA1C levels may depend on specific clinical circumstances. POC HGBA1C is not intended for use as a diagnostic or screening test; laboratory-based testing should be used for diagnostic purposes. The following information is supplemental and may not be applicable to specific diabetes management situations: The POC device ordnance engineer provides a normal range of 4.2% to 6.5% for the HGBA1C POC test. However, the [place] [employer] guidelines indicate that patients with HGBA1C in the range of 5.7% to 6.4% are at increased risk for development of diabetes and that intervention by lifestyle modification may be beneficial. A HGBA1C level greater than or equal to 6.5% is considered diagnostic of diabetes, pending confirmatory testing. Use of HGBA1C testing to evaluate glucose control may not be appropriate for patients with hemoglobin variants or other conditions (e.g. anemia) that alter red blood cell lifespan. Component Latest Ref Rng & Units 08/28/2022 12/22/2022 03/23/2023 06/13/2023 Protein, Total 6.3 - 8.0 g/dL 7.6 Albumin 3.9 - 4.9 g/dL 4.1 Calcium 8.5 - 10.2 mg/dL 9.3 Bilirubin, Total 0.2 - 1.3 mg/dL 0.5 Alkaline Phosphatase 34 - 123 U/L 110 AST 13 - 35 U/L 13 ALT 7 - 38 U/L 11 Glucose 74 - 99 mg/dL 161 (H) BUN 7 - 21 mg/dL 9 Creatinine 0.58 - 0.96 mg/dL 0.72 Sodium 136 - 144 mmol/L 141 Potassium 3.7 - 5.1 mmol/L 3.7 Chloride 97 - 105 mmol/L 102 CO2 22 - 30 mmol/L 31 (H) Anion Gap 9 - 18 mmol/L 8 (L) eGFR >=60 mL/min/1.73m 98 Cholesterol, Total <200 mg/dL 187 Triglyceride <150 mg/dL 233 (H) HDL Cholesterol >39 mg/dL 43 Non HDL Cholesterol <130 mg/dL 144 (H) Fasting Time hrs 12 VLDL Cholesterol <30 mg/dL 47 (H) TC:HDL Ratio <5.10 4.35 LDL Cholesterol <100 mg/dL 97 LDL:HDL Ratio <2.54 2.26 Hemoglobin A1C 4 - 6 % 11.6 (H) 9.5 (H) 9.03 (A) Estimated Average Glucose mg/dL 286 226 Hemoglobin A1C (POCT) 4.2 - 5.6 % 10.4 (A) ASSESSMENT/PLAN: 1. Type 2 diabetes mellitus with peripheral neuropathy (HCC) - ICD9: 250.60, 357.2, ICD10: E11.42 (primary diagnosis) - Uncontrolled at 9, has decreased from 10.4 from March - Continue current medications- Farxiga 10 mg daily, Lantus 50 units at bedtime, Humalog 25-30 units with each meal - Statin prescribed - atorvastatin - Blood glucose monitoring on a four times daily, before meals, and before bedtime schedule - Counseled on healthy diet and regular exercise - Discussed need for and benefit of weight loss. BMI 36.90 kg/(m^2) - Follow up in 3 months, sooner should any other issues arise. 2. Hypertension, essential - ICD9: 401.9, ICD10: I10 - Controlled - Continue current medications - Recommend home blood pressure monitoring, to bring results to next visit - Encouraged sodium restriction, DASH or Mediterranean diet - Recommend regular aerobic exercise - Discussed need for and benefit of weight loss. BMI 36.90 kg/(m^2) - Follow up in 3 months for hypertension visit 3. Hyperlipidemia, mixed - ICD9: 272.2, ICD10: E78.2 - Controlled - Continue current medications - Counseled on healthy diet and regular exercise - Discussed need for and benefit of weight loss. BMI 36.90 kg/(m^2) - Follow up in 3 months, sooner should any other issues arise. 4. Gastroesophageal reflux disease, unspecified whether esophagitis present - ICD9: 530.81, ICD10: K21.9 - Discussed lifestyle modifications including losing weight, limiting caffeine, no meals three hours before sleep, and head of bed elevation - Continue treatment with Protonix 40 mg daily 5. DARLINE (obstructive sleep apnea) - ICD9: 327.23, ICD10: G47.33 - Auto-CPAP and supplies were ordered back at the end of May. Will refax to [facility] in [place]. 6. Decreased appetite - ICD9: 783.0, ICD10: R63.0 7. Dental caries - ICD9: 521.00, ICD10: K02.9 - States she can't have any dental work done until her A1C is closer to 7 New medication(s) prescribed today: None. Counseling completed in adopting health behaviors such as avoiding excessive alcohol use, avoid tobacco use, improve nutrition, and engage in physical activities. Copy of written care plan, clinical summary, treatment plan, new medications, goals, and self management requirements were given to patient. Arianna Rosales APRN.JOVANA documented in this encounter [facility] 06-11-2023 Miscellaneous Notes Orders faxed. Michelle Hong MA Orders placed for an Auto-Pap machine and supplies. Please fax to [facility]. It looks like her CPAP was never ordered Michelle Hong MA documented in this encounter [facility] 06-08-2023 Miscellaneous Notes patient electronically requesting refills as follows: Last seen 03/23/23 . Last refill gabapentin, humalog 01/16/23, lantus, farxiga 03/23/23, metoprolol, pantoprazole 04/08/23, lisinopril, atorvastatin 04/15/23. Requested Prescriptions Pending Prescriptions Disp Refills gabapentin (NEURONTIN) 600 mg tablet 60 tablet 2 Sig: Take 1 tablet by mouth twice daily for 90 days. insulin lispro (HUMALOG KWIKPEN INSULIN) 100 unit/mL 9 Each 2 Sig: Inject 25-30 Units subcutaneously three times daily before meals. If BS over 200 take 30 units. If BS is under 200 but greater than 150 take 25 units. Lancets (ACCU-CHEK FASTCLIX LANCET DRUM) lancets 120 Each 2 Sig: USE 1 LANCET TO CHECK BLOOD SUGAR THREE TIMES DAILY insulin glargine (LANTUS SOLOSTAR U-100 INSULIN) 100 unit/mL (3 mL) 18 Each 1 Sig: Inject 50 Units subcutaneously daily at bedtime. dapagliflozin propanediol (FARXIGA) 10 mg tablet 30 tablet 2 Sig: Take 1 tablet by mouth daily with breakfast. metoprolol tartrate, short acting, (LOPRESSOR) 25 mg tablet 60 tablet 5 Sig: Take 1 tablet by mouth twice daily. pantoprazole DR (PROTONIX) 40 mg tablet 30 tablet 5 Sig: Take 1 tablet by mouth once daily. lisinopril (ZESTRIL) 20 mg tablet 90 tablet 1 Sig: Take 1 tablet by mouth once daily. atorvastatin (LIPITOR) 40 mg tablet 90 tablet 1 Sig: Take 1 tablet by mouth once daily. Please review and advise. Valentin Champagne MA documented in this encounter [facility] 04-16-2023 Miscellaneous Notes Left message informing patient, phone number to reach the office was left for any questions or concerns. Michelle Hong MA ----- Message from Arianna Rosales APRN.CNP sent at 04/16/2023 4:38 PM EDT ----- Please let the patient know that her US was negative. Recheck mammogram in 1 year. documented in this encounter [facility] 04-16-2023 History of Present illness Narrative Radiology Service Progress Note PATIENT NAME: Juana Handy DATE OF SERVICE: April 16, 2023 TIME: 2:37 PM PATIENT IDENTITY VERIFICATION COMPLETED USING TWO (2) IDENTIFIERS: Name and Date of confirmed by patient verbally. FALL SCREENING: Has the patient had 2 falls in the last year or 1 fall with injury or currently using an Ambulatory Assistive Device (Walker, Cane, Wheelchair, Crutches, etc.)? No PATIENT GENDER DATA: Female. status: : No status: N/A PATIENT RELEVANT IMPLANT DATA REVIEWED: Not Applicable RADIOLOGY DEPARTMENT: Mammography PERIPHERAL IV DATA: Not applicable SIGNED BY: RT Eli(R) April 16, 2023 2:37 PM documented in this encounter [facility] 04-15-2023 Miscellaneous Notes pharmacy electronically requesting refills as follows: Last seen 03/23/23 . Last refill both 01/14/23 . Requested Prescriptions Pending Prescriptions Disp Refills lisinopril (ZESTRIL) 20 mg tablet [Pharmacy Med Name: Lisinopril 20 MG Oral Tablet] 90 tablet 0 Sig: Take 1 tablet by mouth once daily atorvastatin (LIPITOR) 40 mg tablet [Pharmacy Med Name: Atorvastatin Calcium 40 MG Oral Tablet] 90 tablet 0 Sig: Take 1 tablet by mouth once daily Please review and advise. Valentin Champagne MA documented in this encounter [facility] 04-10-2023 Miscellaneous Notes Referral faxed Michelle Hong MA Please fax referral to Dr. Abraham Valadez documented in this encounter [facility] 04-08-2023 Miscellaneous Notes pharmacy electronically requesting refills as follows: Last seen 03/23/23 . Last refill all 01/16/23 . Requested Prescriptions Pending Prescriptions Disp Refills metoprolol tartrate, short acting, (LOPRESSOR) 25 mg tablet [Pharmacy Med Name: Metoprolol Tartrate 25 MG Oral Tablet] 60 tablet 0 Sig: Take 1 tablet by mouth twice daily pantoprazole DR (PROTONIX) 40 mg tablet [Pharmacy Med Name: Pantoprazole Sodium 40 MG Oral Tablet Delayed Release] 30 tablet 0 Sig: Take 1 tablet by mouth once daily glimepiride (AMARYL) 4 mg tablet [Pharmacy Med Name: Glimepiride 4 MG Oral Tablet] 60 tablet 0 Sig: TAKE 2 TABLETS BY MOUTH ONCE DAILY WITH BREAKFAST Please review and advise. Valentin Champagne MA documented in this encounter [facility] 03-30-2023 Miscellaneous Notes Pharmacy requesting refills: Last office visit 03/23/2023. Last refill 01/16/2023 nov 06/29/2023 Requested Prescriptions Pending Prescriptions Disp Refills OZEMPIC 0.25 mg or 0.5 mg (2 mg/3 mL) pen [Pharmacy Med Name: Ozempic (0.25 or 0.5 MG/DOSE) 2 MG/3ML Subcutaneous Solution Pen-injector] 3 mL 0 Sig: INJECT 0.5 MG. SUBCUTANEOUSLY ONCE A WEEK Please review and advise. Kristin Donaldson MA documented in this encounter [facility] 03-23-2023 History of Present illness Narrative Images from the original note were not included. [facility] Arianna Rosales APRN-CORPORATE CONSULTANT. [address] [place] [address] Dept Dept. Visit Date: March 23, 2023 Chief Complaint: Patient presents with: F/U Diabetes 3 Month History of Present Illness Juana Handy is a 57 year old female here today for diabetes follow-up visit. Patient has type 2 diabetes. Feeling well today, no concerns. Denies dizziness, chest pain, shortness of breath, changes in vision. Denies polydipsia, polyphagia, polyuria. Home Blood Sugars: High 100's-low 200's Medication Compliance: Yes Low Blood Sugars: None Diet: Decreased appetite, only eats about 1 meal a day. Counts carbs. Exercise: None Eye Exam: UTD Podiatry: Yes, follows with Dr. Shin Tobacco use - None Alcohol use - None Completed PSG test Seeing Dr. Yann Hawley with ortho spine surgery in [place] Needs surgery but needs A1C at 7. Was referred to Endo in [place]. PT consultation next week PAST MEDICAL HISTORY Diagnosis Date Diabetes mellitus (HCC) Essential hypertension Fibromyalgia High cholesterol Social History Tobacco Use Smoking status: Never Smokeless tobacco: Never Vaping Use Vaping Use: Never used Substance Use Topics Alcohol use: Never Drug use: Never Social History Social History Narrative Not on file ALLERGIES Allergen Reactions Lavender (Lavandula* Rash Metformin GI Upset Latex Rash Current Outpatient Medications Medication Sig Lancets (ACCU-CHEK FASTCLIX LANCET DRUM) lancets USE 1 LANCET TO CHECK BLOOD SUGAR THREE TIMES DAILY insulin needles, DISPOSABLE, (PEN NEEDLE) 31 gauge x 5/16" 1 Each four times daily. semaglutide (OZEMPIC) 0.25 mg or 0.5 mg(2 mg/1.5 mL) pen Inject 0.5 mg subcutaneously one time a week. metoprolol tartrate, short acting, (LOPRESSOR) 25 mg tablet Take 1 tablet by mouth twice daily. pantoprazole DR (PROTONIX) 40 mg tablet Take 1 tablet by mouth once daily. gabapentin (NEURONTIN) 600 mg tablet Take 1 tablet by mouth twice daily for 90 days. glimepiride (AMARYL) 4 mg tablet Take 2 tablets by mouth daily with breakfast. blood sugar diagnostic test strip Accu chek guide me test strips patient checks sugars 3 times daily Dx E11.42 insulin lispro (HUMALOG KWIKPEN INSULIN) 100 unit/mL Inject 25-30 Units subcutaneously three times daily before meals. If BS over 200 take 30 units. If BS is under 200 but greater than 150 take 25 units. lisinopril (ZESTRIL) 20 mg tablet Take 1 tablet by mouth once daily atorvastatin (LIPITOR) 40 mg tablet Take 1 tablet by mouth once daily albuterol HFA (PROAIR HFA) 90 mcg/actuation inhaler Inhale 2 Puffs as instructed every 4 hours as needed for wheezing/shortness of breath. MULTI-VITAMIN ORAL Take 1 tablet by mouth once daily. Blood-Glucose Meter (ACCU-CHEK GUIDE ME GLUCOSE MTR) patient checks sugars 3 times daily Dx E11.42 aspirin 81 mg chewable tablet Take 81 mg by mouth. insulin glargine (LANTUS SOLOSTAR U-100 INSULIN) 100 unit/mL (3 mL) Inject 50 Units subcutaneously daily at bedtime. dapagliflozin propanediol (FARXIGA) 10 mg tablet Take 1 tablet by mouth daily with breakfast. No current facility-administered medications for this visit. Review of Systems Review of Systems Constitutional: Positive for fatigue and unexpected weight change (down 10-11 pounds). Negative for activity change, appetite change, chills, diaphoresis and fever. Decreased appetite Eyes: Negative for visual disturbance. Respiratory: Positive for apnea (history of DARLINE). Negative for chest tightness, shortness of breath and wheezing. Cardiovascular: Negative. Gastrointestinal: Positive for abdominal pain and nausea. Negative for blood in stool, constipation, diarrhea, rectal pain and vomiting. Genitourinary: Negative for dysuria, frequency and urgency. Musculoskeletal: Positive for arthralgias, back pain and gait problem. Negative for joint swelling. Skin: Negative. Neurological: Positive for weakness, numbness and headaches. Negative for dizziness, syncope and light-headedness. Psychiatric/Behavioral: Positive for sleep disturbance. Negative for dysphoric mood. The patient is not nervous/anxious. Physical Exam BP 114/66 Pulse 82 Temp 97.8 Resp 18 Ht 5' 4" (1.63m) Wt 209 lb (94.8kg) SpO2 97% BMI 35.86 kg/(m^2). Last 3 Encounter BP Readings: Date: BP: 01/19/2023 145/74 12/22/2022 122/70 09/29/2022 126/70 Physical Exam Vitals and nursing note reviewed. Constitutional: Appearance: She is obese. HENT: Head: Normocephalic. Mouth/Throat: Mouth: Mucous membranes are moist. Dentition: Abnormal dentition. Dental caries present. Eyes: Pupils: Pupils are equal, round, and reactive to light. Cardiovascular: Rate and Rhythm: Normal rate and regular rhythm. Pulses: Dorsalis pedis pulses are 2+ on the right side and 2+ on the left side. Posterior tibial pulses are 2+ on the right side and 2+ on the left side. Heart sounds: Normal heart sounds. No murmur heard. Pulmonary: Effort: Pulmonary effort is normal. Breath sounds: No wheezing, rhonchi or rales. Abdominal: General: Bowel sounds are normal. There is no distension. Palpations: Abdomen is soft. Tenderness: There is no abdominal tenderness. Musculoskeletal: Right lower leg: No edema. Left lower leg: No edema. Feet: Right foot: Protective Sensation: 6 sites tested. 1 site sensed. Skin integrity: Skin integrity normal. Toenail Condition: Right toenails are long. Left foot: Protective Sensation: 6 sites tested. 1 site sensed. Skin integrity: Skin integrity normal. Toenail Condition: Left toenails are long. Skin: General: Skin is warm and dry. Neurological: Mental Status: She is alert and oriented to person, place, and time. Sensory: Sensory deficit present. Coordination: Coordination is intact. Gait: Gait is intact. Psychiatric: Mood and Affect: Mood normal. Affect is tearful. Speech: Speech normal. Behavior: Behavior is cooperative. Cognition and Memory: Cognition normal. Lab Results Component Value Date Hemoglobin A1C 9.5 (H) 12/22/2022 Hemoglobin A1C 11.6 (H) 08/28/2022 Hemoglobin A1C (POCT) 10.4 (A) 03/23/2023 Lab Results Component Value Date Cholesterol, Total 187 12/22/2022 Cholesterol, Total 200 (H) 01/20/2022 Lab Results Component Value Date LDL Cholesterol 97 12/22/2022 LDL Cholesterol 99 01/20/2022 Lab Results Component Value Date HDL Cholesterol 43 12/22/2022 HDL Cholesterol 46 01/20/2022 Lab Results Component Value Date Creatinine 0.72 12/22/2022 Creatinine 0.68 01/20/2022 Assessment and Plan Encounter Diagnosis ICD-10-CM 1. Type 2 diabetes mellitus without complication, with long-term current use of insulin ([facility]) E11.9 insulin glargine (LANTUS SOLOSTAR U-100 INSULIN) 100 unit/mL (3 mL) Z79.4 dapagliflozin propanediol (FARXIGA) 10 mg tablet 2. Hypertension, essential I10 3. Hyperlipidemia, mixed E78.2 4. DARLINE (obstructive sleep apnea) G47.33 PAP TITRATION PSG (CPAP, BIPAP, ASV) 5. Neuropathy G62.9 6. Decreased appetite R63.0 ASSESSMENT/PLAN: 1. Type 2 diabetes mellitus without complication, with long-term current use of insulin ([facility]) - ICD9: 250.00, V58.67, ICD10: E11.9, Z79.4 (primary diagnosis) - Uncontrolled - Worsening control- A1C up to 10.4 - Start dapagliflozin (Farxiga) - Continue meal time insulin at 25-30 units at each meal. 50 units Lantus at beditme. - Ozempic 0.5 mg weekly - Statin prescribed - atorvastatin - Blood glucose monitoring on a four times daily, before meals, and before bedtime schedule - Counseled on healthy diet and regular exercise - Discussed need for and benefit of weight loss. BMI 35.87 kg/(m^2) - Feet:Shoes and socks removed, No deformities, ulcers, calluses, normal distal pulses, not sensitive to monofilament bilaterally, vibratory perception decreased bilaterally, and nails notable for Deformed or Hypertrophic - Follow up in 3 months, sooner should any other issues arise. - INSULIN GLARGINE (U-100) 100 UNIT/ML (3 ML) SUBCUTANEOUS PEN - DAPAGLIFLOZIN PROPANEDIOL 10 MG TABLET 2. Hypertension, essential - ICD9: 401.9, ICD10: I10 - Controlled - Continue current medications - Recommend home blood pressure monitoring, to bring results to next visit - Encouraged sodium restriction, DASH or Mediterranean diet - Recommend regular aerobic exercise - Discussed need for and benefit of weight loss. BMI 35.87 kg/(m^2) - Follow up in 3 months for hypertension visit 3. Hyperlipidemia, mixed - ICD9: 272.2, ICD10: E78.2 - Controlled - Continue current medications - Counseled on healthy diet and regular exercise - Discussed need for and benefit of weight loss. BMI 35.87 kg/(m^2) - Follow up in 3 months, sooner should any other issues arise. 4. DARLINE (obstructive sleep apnea) - ICD9: 327.23, ICD10: G47.33 - Patient would prefer to complete titration study rather than an auto-pap machine - PAP TITRATION PSG (CPAP, BIPAP, ASV) 5. Neuropathy - ICD9: 355.9, ICD10: G62.9 - Chronic, on Gabapentin 6. Decreased appetite - ICD9: 783.0, ICD10: R63.0 - Encouraged to eat 5-6 small meals daily, focusing on lean protein sources. - Medication side effect? Discussed above plan with patient. Pt agreeable with above plan. Return in about 3 months (around 06/23/2023) for DM follow-up. Arianna Rosales APRN.CNP, signed on March 23, 2023 2:06 PM documented in this encounter [facility] 03-10-2023 Miscellaneous Notes Received call from Cynthia in radiology that patient needs an US of right breast ordered. She already has a diagnostic mammogram ordered. documented in this encounter [facility] 03-06-2023 Miscellaneous Notes pharmacy electronically requesting refills as follows: Last seen 12/22/22 . Last refill 01/16/23 . Requested Prescriptions Pending Prescriptions Disp Refills Lancets (ACCU-CHEK FASTCLIX LANCET DRUM) lancets [Pharmacy Med Name: FASTCLIX LANCETS MIS] 102 Each 0 Sig: USE 1 LANCET TO CHECK BLOOD SUGAR THREE TIMES DAILY Please review and advise. Valentin Champagne MA documented in this encounter [facility] 01-21-2023 History of Present illness Narrative ED Follow Up: Patient discharged from [facility] ED on 01/19/23. 1. How are you feeling since your ED visit? Called pt left for her to call the office with any questions or concerns Have your symptoms improved or resolved? Called pt left VM for her to call the office with any questions or concerns 2. Were you prescribed any medications while in the ED or advised to stop any medication? Called pt left for her to call the office with any questions or concerns - If yes, were you able to fill your prescriptions? Called pt left VM for her to call the office with any questions or concerns -if stopped medication, what was the medication? Called pt left VM for her to call the office with any questions or concerns 3. Were you advised to schedule a follow up appointment with your provider? Called pt left for her to call the office with any questions or concerns - If no, Do you feel like you need an appointment scheduled? Called pt left for her to call the office with any questions or concerns - If yes, Do you need this scheduled now or has this already been scheduled? Called pt left for her to call the office with any questions or concerns 4. Were you able to contact the office or auto phone installer provider prior to your ED visit? Called pt left for her to call the office with any questions or concerns 5. Is there anything else I can do for you today? Called pt [facility] for her to call the office with any questions or concerns documented in this encounter [facility] 01-16-2023 Miscellaneous Notes Pharmacy requesting refills as follows: Last Office Visit 12/22/22. Last Refill 10/06/22. Requested Prescriptions Pending Prescriptions Disp Refills semaglutide (OZEMPIC) 0.25 mg or 0.5 mg(2 mg/1.5 mL) pen 1 Each 2 Sig: Inject 0.5 mg subcutaneously one time a week. Lancets (ACCU-CHEK FASTCLIX LANCET DRUM) lancets 100 Each 1 Sig: Lancets and lancing device. patient checks sugars 3 times daily Dx E11.42 metoprolol tartrate, short acting, (LOPRESSOR) 25 mg tablet 60 tablet 2 Sig: Take 1 tablet by mouth twice daily. pantoprazole DR (PROTONIX) 40 mg tablet 30 tablet 2 Sig: Take 1 tablet by mouth once daily. gabapentin (NEURONTIN) 600 mg tablet 60 tablet 2 Sig: Take 1 tablet by mouth twice daily for 90 days. glimepiride (AMARYL) 4 mg tablet 60 tablet 2 Sig: Take 2 tablets by mouth daily with breakfast. blood sugar diagnostic test strip 100 Each 1 Sig: Accu chek guide me test strips patient checks sugars 3 times daily Dx E11.42 insulin glargine (LANTUS SOLOSTAR U-100 INSULIN) 100 unit/mL (3 mL) 5 Each 2 Sig: Inject 50 Units subcutaneously daily at bedtime. insulin lispro (HUMALOG KWIKPEN INSULIN) 100 unit/mL 9 Each 2 Sig: Inject 25-30 Units subcutaneously three times daily before meals. If BS over 200 take 30 units. If BS is under 200 but greater than 150 take 25 units. Please review and advise. Michelle Hong MA documented in this encounter [facility] 01-14-2023 Miscellaneous Notes pharmacy electronically requesting refills as follows: Last seen 12/22/22 . Last refill both 10/06/22 . Requested Prescriptions Pending Prescriptions Disp Refills lisinopril (ZESTRIL) 20 mg tablet [Pharmacy Med Name: Lisinopril 20 MG Oral Tablet] 90 tablet 0 Sig: Take 1 tablet by mouth once daily atorvastatin (LIPITOR) 40 mg tablet [Pharmacy Med Name: Atorvastatin Calcium 40 MG Oral Tablet] 90 tablet 0 Sig: Take 1 tablet by mouth once daily Please review and advise. Valentin Champagne MA documented in this encounter [facility] 01-07-2023 Miscellaneous Notes Called and updated patient that order was faxed. Informed her that January 12 [facility] will no longer accept medicare and that if they don't accept her order we can fax it to [facility]. Patient agreeable. Images from the original note were not included. Ada Shin [facility] Podiatry Pool 34 minutes ago (7:50 AM) Order signed for diabetic shoe Patient requesting order for diabetic shoes. Once filed please fax to [facility] in [place] and notify patient. documented in this encounter [facility] 12-23-2022 Miscellaneous Notes Patient's A1C came down to 9.5. Will decrease her Lantus to 50 units at bedtime and 25-30 units with her mealtime insulin. If it over 200 take the 30 units but if it is under 200 but still greater than 150 please take the 25 units. F/U in 3 months or sooner. documented in this encounter [facility] 12-22-2022 Instructions Arianna Rosales APRN.CNP - 12/22/2022 5:[address] Jay Zazueta PRACTICE: [facility] ADDRESS: [address] [place] [address], [address] [place] [address] PHONE NUMBER: documented in this encounter [facility] 12-22-2022 History of Present illness Narrative Images from the original note were not included. [facility] Arianna Rosales APRN-CORPORATE CONSULTANT. [address] [place] [address] Dept Dept. Visit Date: December 22, 2022 Chief Complaint: Patient presents with: Diabetes History of Present Illness Juana Handy is a 57 year old female here today for diabetes follow-up visit. Patient has type 2 diabetes. Feeling well today. Denies dizziness, chest pain, shortness of breath, changes in vision. Denies polydipsia, polyphagia, polyuria. Home Blood Sugars: Fasting BS 150-low 200's Medication Compliance: Yes Low Blood Sugars: None Diet: States she has to eat "cheap" food because that is all she can afford Exercise: No routine, can't do much due to her ankle and foot pain Eye Exam: Due Podiatry: Follows with Dr. Shin Tobacco use - None Alcohol use - None Insurance wants her back on Lantus She is doing well on her Ozempic without side effects Hx of DARLINE, hasn't been able to use her CPAP Had a sleep study years ago with [facility]. We have been unsuccessful with getting records. Has a lot of fatigue, particularly in the daytime Not sleeping well +HTN +BMI >35 +snoring and apnea Reports having a yeast skin infection in her groin- red, itchy, burning. Tried an OTC ointment, now having some flaking of her skin. She has a history of a cyst on her spine. She would like to see a neurosurgeon regarding this. Hx of laminectomy x 2. MRI from 03/13/18 showed: IMPRESSION: 1. L4-L5: Interval right laminectomy and probable discectomy. Severe facet arthrosis and thickening of ligamenta flava, with a new 6 mm right facet joint synovial cyst which extends into the right dorsal spinal canal. A recurrent right paracentral/lateral recess/foraminal disc extrusion is suspected, contributing to severe central spinal canal stenosis, narrowing of the right lateral recess with contact of the right L5 nerve root, and moderate right and mild left foraminal stenosis. 2. Moderate L2-L3 and L3-L4 degenerative disc changes have progressed, and together with prominence of the dorsal epidural fat this results in moderate central spinal canal stenosis and L2-L3 mild bilateral foraminal stenosis. PAST MEDICAL HISTORY Diagnosis Date Diabetes mellitus (HCC) Essential hypertension Fibromyalgia High cholesterol Social History Tobacco Use Smoking status: Never Smokeless tobacco: Never Vaping Use Vaping Use: Never used Substance Use Topics Alcohol use: Never Drug use: Never Social History Social History Narrative Not on file ALLERGIES Allergen Reactions Lavender (Lavandula* Rash Metformin GI Upset Latex Rash Current Outpatient Medications Medication Sig atorvastatin (LIPITOR) 40 mg tablet Take 1 tablet by mouth once daily. lisinopril (ZESTRIL, PRINIVIL) 20 mg tablet Take 1 tablet by mouth once daily. Lancets (ACCU-CHEK FASTCLIX LANCET DRUM) lancets Lancets and lancing device. patient checks sugars 3 times daily Dx E11.42 metoprolol tartrate, short acting, (LOPRESSOR) 25 mg tablet Take 1 tablet by mouth twice daily. pantoprazole DR (PROTONIX) 40 mg tablet Take 1 tablet by mouth once daily. gabapentin (NEURONTIN) 600 mg tablet Take 1 tablet by mouth twice daily for 90 days. albuterol HFA (PROAIR HFA) 90 mcg/actuation inhaler Inhale 2 Puffs as instructed every 4 hours as needed for wheezing/shortness of breath. glimepiride (AMARYL) 4 mg tablet Take 2 tablets by mouth daily with breakfast. blood sugar diagnostic test strip Accu chek guide me test strips patient checks sugars 3 times daily Dx E11.42 semaglutide (OZEMPIC) 0.25 mg or 0.5 mg(2 mg/1.5 mL) pen Inject 0.5 mg subcutaneously one time a week. MULTI-VITAMIN ORAL Take 1 tablet by mouth once daily. Blood-Glucose Meter (ACCU-CHEK GUIDE ME GLUCOSE MTR) patient checks sugars 3 times daily Dx E11.42 aspirin 81 mg chewable tablet Take 81 mg by mouth. insulin glargine (LANTUS SOLOSTAR U-100 INSULIN) 100 unit/mL (3 mL) Inject 50 Units subcutaneously daily at bedtime. insulin lispro (HUMALOG KWIKPEN INSULIN) 100 unit/mL Inject 25-30 Units subcutaneously three times daily before meals. If BS over 200 take 30 units. If BS is under 200 but greater than 150 take 25 units. fluconazole (DIFLUCAN) 150 mg tablet Take one by mouth at the first sign of a yeast infection, repeat with another tablet in 3 days nystatin (MYCOSTATIN) cream Apply to affected area twice daily. No current facility-administered medications for this visit. Review of Systems Review of Systems Constitutional: Positive for fatigue. Negative for activity change, appetite change, chills, diaphoresis, fever and unexpected weight change. Respiratory: Positive for apnea (history of DARLINE). Negative for chest tightness, shortness of breath and wheezing. Cardiovascular: Negative. Gastrointestinal: Positive for abdominal pain and nausea. Negative for blood in stool, constipation, diarrhea, rectal pain and vomiting. Musculoskeletal: Positive for arthralgias and back pain. Neurological: Positive for headaches. Negative for dizziness and light-headedness. Psychiatric/Behavioral: Positive for sleep disturbance. Negative for dysphoric mood. The patient is not nervous/anxious. Physical Exam BP 122/70 Pulse 73 Temp 98.3 Resp 16 Ht 5' 4" (1.63m) Wt 221 lb (100.2kg) SpO2 98% BMI 37.92 kg/(m^2). Last 3 Encounter BP Readings: Date: BP: 12/22/2022 122/70 09/29/2022 126/70 04/21/2022 120/72 Physical Exam Vitals and nursing note reviewed. Constitutional: Appearance: She is obese. HENT: Head: Normocephalic. Mouth/Throat: Mouth: Mucous membranes are moist. Dentition: Abnormal dentition. Dental caries present. Eyes: Pupils: Pupils are equal, round, and reactive to light. Cardiovascular: Rate and Rhythm: Normal rate and regular rhythm. Heart sounds: Normal heart sounds. No murmur heard. Pulmonary: Effort: Pulmonary effort is normal. Breath sounds: No wheezing, rhonchi or rales. Abdominal: General: Bowel sounds are normal. There is no distension. Palpations: Abdomen is soft. Tenderness: There is no abdominal tenderness. Skin: General: Skin is warm and dry. Findings: Erythema present. Neurological: Mental Status: She is alert and oriented to person, place, and time. Psychiatric: Mood and Affect: Mood normal. Behavior: Behavior is cooperative. Cognition and Memory: Cognition normal. Lab Results Component Value Date Hemoglobin A1C 9.5 (H) 12/22/2022 Hemoglobin A1C 11.6 (H) 08/28/2022 Hemoglobin A1C 12.6 (H) 01/20/2022 Lab Results Component Value Date Cholesterol, Total 187 12/22/2022 Cholesterol, Total 200 (H) 01/20/2022 Lab Results Component Value Date LDL Cholesterol 97 12/22/2022 LDL Cholesterol 99 01/20/2022 Lab Results Component Value Date HDL Cholesterol 43 12/22/2022 HDL Cholesterol 46 01/20/2022 Lab Results Component Value Date Creatinine 0.72 12/22/2022 Creatinine 0.68 01/20/2022 Assessment and Plan Encounter Diagnosis ICD-10-CM 1. Type 2 diabetes mellitus with peripheral neuropathy (HCC) E11.42 DISCONTINUED: insulin glargine (LANTUS SOLOSTAR U-100 INSULIN) 100 unit/mL (3 mL) 2. DARLINE (obstructive sleep apnea) G47.33 POLYSOMNOGRAM (PSG) 3. CPAP (continuous positive airway pressure) dependence Z99.89 4. Dermoid cyst of spine D16.6 CONSULT TO ORTHOPAEDIC SURGERY 5. Primary hypertension I10 6. Mixed hyperlipidemia E78.2 7. Encounter for immunization Z23 Nu-Med Plus COVID-19 BIVALENT BOOSTER VACCINE, AGE 12+ YR 8. Encounter for screening mammogram for malignant neoplasm of breast Z12.31 FRED SCREENING 9. Vaginal yeast infection B37.31 nystatin (MYCOSTATIN) cream ASSESSMENT/PLAN: 1. Type 2 diabetes mellitus with peripheral neuropathy (HCC) - ICD9: 250.60, 357.2, ICD10: E11.42 (primary diagnosis) - Barriers to control: cost of medication and food insecurity - A1C pending from the lab - Continue current medications- Ozempic 0.5 mg once a week, Amaryl 4 mg daily, Lantus 60 units at bedtime (may be adjusted based on A1C), meal time insulin 35 units with meals (may be adjusted). - Counseled on healthy diet and regular exercise - Discussed need for and benefit of weight loss. BMI 37.93 kg/(m^2) - Follow up in 3 months, sooner should any other issues arise. - INSULIN GLARGINE (U-100) 100 UNIT/ML (3 ML) SUBCUTANEOUS PEN 2. DARLINE (obstructive sleep apnea) - ICD9: 327.23, ICD10: G47.33 - Recommend updated sleep study, have requested previous sleep study records and have been unsuccessful. Last sleep study was > 5 years ago. - POLYSOMNOGRAM (PSG) 3. CPAP (continuous positive airway pressure) dependence - ICD9: V46.8, ICD10: Z99.89 4. Dermoid cyst of spine - ICD9: 213.2, ICD10: D16.6 - Reviewed MRI from 2018 in Care Everywhere, results in note above - CONSULT TO ORTHOPAEDIC SURGERY 5. Primary hypertension - ICD9: 401.9, ICD10: I10 - good control - Continue current medication(s) - Encouraged dietary sodium restriction/DASH diet - Recommended regular aerobic exercise. - Recommend home blood pressure monitoring, to bring results in on next visit - Discussed need and benefit for weight loss. - Goal of BP <130/80 - Recommended no refined sugar, low refined starch, healthy oil intake (olive oil), healthy protein (fish) along the lines of the Mediterranean diet. 6. Mixed hyperlipidemia - ICD9: 272.2, ICD10: E78.2 - good control - Continue current medication. - Encouraged following a low fat, low cholesterol diet. - Discussed the benefits of regular aerobic exercise and weight loss. - Encouraged following a low carbohydrate, healthy oil intake diet. 7. Encounter for immunization - ICD9: V03.89, ICD10: Z23 - PFIZER-BIONTECH COVID-19 BIVALENT BOOSTER VACCINE, AGE 12+ YR 8. Encounter for screening mammogram for malignant neoplasm of breast - ICD9: V76.12, ICD10: Z12.31 - Set up for mammogram, yearly mammogram recommended - Encouraged monthly BSE - FRED SCREENING 9. Vaginal yeast infection - ICD9: 112.1, ICD10: B37.31 - NYSTATIN 100,000 UNIT/GRAM TOPICAL CREAM Discussed above plan with patient. Pt agreeable with above plan. Return in about 3 months (around 03/23/2023) for DM follow-up, Hyperlipidemia. Arianna Rosales APRN.JOVANA, signed on December 22, 2022 5:16 PM documented in this encounter [facility] 12-01-2022 Miscellaneous Notes Please assist with scheduling appointment . Thanks. Kristin Donaldson MA She is due for an appointment for her diabetes and we can discuss her DARLINE at that appointment too. Please advise if patient needs appointment. documented in this encounter [facility] 11-07-2022 Miscellaneous Notes Prior auth started for patient's ozempic Tran: [id number] Michelle Hong MA documented in this encounter [facility] 10-13-2022 Instructions Ada Shin - 10/13/2022 3:56 PM EST Diabetes Foot Care Instructions When you have diabetes, proper foot care is very important. Poor foot care may lead to amputation of a foot or leg. As a person with diabetes, you are more vulnerable to foot problems, because diabetes can damage your nerves and reduce blood flow to your feet. Here are some diabetes foot care tips to follow: Wash and Dry Your Feet Daily Use mild soaps Use warm water Pat your skin dry; do not rub. Thoroughly dry your feet. After washing, use lotion on your feet to prevent cracking. Do not put lotion between your toes. Examine Your Feet Each Day Check the tops and bottoms of your feet. Have someone else look at your feet if you cannot see them. Check for dry, cracked skin. Look for blisters, cuts, scratches, or other sores. Check for redness, increased warmth, or tenderness when touching any area of your feet. Check for ingrown toenails, corns, and calluses. If you get a blister or sore from your shoes, do not "pop" it. Apply a bandage and wear a different pair of shoes. Take Care of Your Toenails Cut toenails after bathing, when they are soft. Cut toenails straight across and smooth with a nail file. Avoid cutting into the corners of toes. Do not cut cuticles. If you have neuropathy (or decreased sensation in your feet) a toy assembly supervisor should always cut your toenails. Be Careful When Exercising Walk and exercise in comfortable shoes. Do not exercise when you have open sores on your feet. Protect Your Feet With Shoes and Socks Never go barefoot. Always protect your feet by wearing shoes or hard-soled slippers or footwear. Avoid shoes with high heels and pointed toes. Avoid shoes that expose your toes or heels (such as open-toed shoes or sandals). These types of shoes increase your risk for injury and potential infections. Try on new footwear with the type of socks you usually wear. Do not wear new shoes for more than an hour at a time. Change your socks daily. Look and feel inside your shoes before putting them on to make sure there are no foreign objects or rough areas. Avoid tight socks. Wear natural-fiber socks (cotton, wool, or a cotton-wool blend). Wear special shoes if your health care provider recommends them. Wear shoes/boots that will protect your feet from various weather conditions (cold, moisture, etc.). Make sure your shoes fit properly. If you have neuropathy (nerve damage), you may not notice that your shoes are too tight. Perform the "footwear test" described below. Footwear Test Use this simple test to see if your shoes fit correctly: Stand on a piece of paper. (Make sure you are standing and not sitting, because your foot changes shape when you stand.) Trace the outline of your foot. Trace the outline of your shoe. Compare the tracings: Is the shoe too narrow? Is your foot crammed into the shoe? The shoe should be at least 1/2 inch longer than your longest toe and as wide as your foot. Proper Shoe Choices The following types of shoes are best for people with diabetes Closed toes and heels Leather uppers without a seam inside At least 1/2 inch extra space at the end of your longest toe Inside of shoe should be soft with no rough areas Outer sole should be made of stiff material Shoes should be at least as wide as your feet Tips for Foot Care in Diabetes Don't wait to treat a minor foot problem if you have diabetes. Follow your health care provider's guidelines and first aid guidelines. Report foot injuries and infections to your health care provider immediately. Check water temperature with your elbow, not your foot. Do not use a heating pad on your feet. Do not cross your legs. Do not self-treat your corns, calluses, or other foot problems. Go to your health care provider or toy assembly supervisor to treat these conditions. documented in this encounter [facility] 10-13-2022 History of Present illness Narrative FOLLOW UP PODIATRIC OFFICE VISIT Chief Complaint: This 57 year old who presents for follow up: toenail removal of right hallux Patient presents to clinic for follow-up right hallux s/p removal She had an avulsion of right hallux toenail back in May. The toenail has returned. It does not cause her any issues other than she doesn't feel it looks right. She feels the nail looks yellow and disturbed. She has relative cutting the nail. PAIN EVALUATION No data found in the last 1 encounters. Hemoglobin A1C Date Value Ref Range Status 08/28/2022 11.6 (H) 4.3 - 5.6 % Final Comment: [place] [employer] guidelines indicate that patients with HgbA1c in the range 5.7-6.4% are at increased risk for development of diabetes, and intervention by lifestyle modification may be beneficial. HgbA1c greater or equal to 6.5% is considered diagnostic of diabetes. PCP: Arianna Rosales APRN.CORPORATE CONSULTANT PAST MEDICAL HISTORY Diagnosis Date Diabetes mellitus (HCC) Essential hypertension Fibromyalgia High cholesterol Current Outpatient Medications Medication Sig atorvastatin (LIPITOR) 40 mg tablet Take 1 tablet by mouth once daily. lisinopril (ZESTRIL, PRINIVIL) 20 mg tablet Take 1 tablet by mouth once daily. insulin lispro (HUMALOG KWIKPEN INSULIN) 100 unit/mL Inject 35 Units subcutaneously three times daily before meals. insulin glargine (LANTUS SOLOSTAR U-100 INSULIN) 100 unit/mL (3 mL) Inject 60 Units subcutaneously daily at bedtime. Lancets (ACCU-CHEK FASTCLIX LANCET DRUM) lancets Lancets and lancing device. patient checks sugars 3 times daily Dx E11.42 metoprolol tartrate, short acting, (LOPRESSOR) 25 mg tablet Take 1 tablet by mouth twice daily. pantoprazole DR (PROTONIX) 40 mg tablet Take 1 tablet by mouth once daily. gabapentin (NEURONTIN) 600 mg tablet Take 1 tablet by mouth twice daily for 90 days. albuterol HFA (PROAIR HFA) 90 mcg/actuation inhaler Inhale 2 Puffs as instructed every 4 hours as needed for wheezing/shortness of breath. glimepiride (AMARYL) 4 mg tablet Take 2 tablets by mouth daily with breakfast. blood sugar diagnostic test strip Accu chek guide me test strips patient checks sugars 3 times daily Dx E11.42 semaglutide (OZEMPIC) 0.25 mg or 0.5 mg(2 mg/1.5 mL) pen Inject 0.5 mg subcutaneously one time a week. MULTI-VITAMIN ORAL Take 1 tablet by mouth once daily. Blood-Glucose Meter (ACCU-CHEK GUIDE ME GLUCOSE MTR) patient checks sugars 3 times daily Dx E11.42 aspirin 81 mg chewable tablet Take 81 mg by mouth. No current facility-administered medications for this visit. ALLERGIES Allergen Reactions Lavender (Lavandula* Rash Metformin GI Upset Latex Rash PAST SURGICAL HISTORY Procedure Laterality Date BACK SURGERY HX Physical Exam: OBJECTIVE: Constitutional: Pt is a well developed 57 year old female who is alert, oriented, cooperative and in no apparent distress. Eyes: Following during examination. No redness or drainage. Respiratory: RR normal and nonlabored. Even breathing. No evidence of distress. Psychology: Patient is engaged during conversation. Normal affect and mood. Does not appear depressed or anxious. NVSI unchanged from previous visit. Dermatological: Nails 1-5 b/l are normal length. Slight thickening noted. No signs of infection. Webspaces clean and dry 1-4 b/l. Skin appears well hydrated and supple. good color, texture, turgor. No open lesions present. No callosities present. Musculoskeletal/Orthopaedic: Patient has no pain to palpation of b/l feet ASSESSMENT: (B35.1) Onychomycosis (primary encounter diagnosis) (E11.42) Type 2 diabetes mellitus with peripheral neuropathy (HCC) PLAN: Patient is s/p total toenail avulsion. It has returned. No signs of infection. The nails do show increased thickening. Discussed possible fungal etiology. Discussed topical medication vs oral medication vs removal. Would not recommend any elective removal until patient's diabetes is better controlled. Patient relative is cutting the toenails without issue. She can continue with this. Ada Shin DPM Patient presents with: Right Foot - Established Patient, Follow Up, Ingrown Toenail, Diabetic Foot Care Left Foot - Diabetic Foot Care Catrina Fisher LPN documented in this encounter [facility] 10-06-2022 Miscellaneous Notes patient electronically requesting refills as follows: Last seen 09/29/22 . Last refill all 07/21/22 . Requested Prescriptions Pending Prescriptions Disp Refills atorvastatin (LIPITOR) 40 mg tablet 90 tablet 0 Sig: Take 1 tablet by mouth once daily. lisinopril (ZESTRIL, PRINIVIL) 20 mg tablet 90 tablet 0 Sig: Take 1 tablet by mouth once daily. insulin lispro (HUMALOG KWIKPEN INSULIN) 100 unit/mL 9 Each 2 Sig: Inject 35 Units subcutaneously three times daily before meals. insulin glargine (LANTUS SOLOSTAR U-100 INSULIN) 100 unit/mL (3 mL) 5 Each 2 Sig: Inject 60 Units subcutaneously daily at bedtime. Lancets (ACCU-CHEK FASTCLIX LANCET DRUM) lancets 100 Each 1 Sig: Lancets and lancing device. patient checks sugars 3 times daily Dx E11.42 metoprolol tartrate, short acting, (LOPRESSOR) 25 mg tablet 60 tablet 2 Sig: Take 1 tablet by mouth twice daily. pantoprazole DR (PROTONIX) 40 mg tablet 30 tablet 2 Sig: Take 1 tablet by mouth once daily. gabapentin (NEURONTIN) 600 mg tablet 60 tablet 2 Sig: Take 1 tablet by mouth twice daily for 90 days. albuterol HFA (PROAIR HFA) 90 mcg/actuation inhaler 1 Each 2 Sig: Inhale 2 Puffs as instructed every 4 hours as needed for wheezing/shortness of breath. glimepiride (AMARYL) 4 mg tablet 60 tablet 2 Sig: Take 2 tablets by mouth daily with breakfast. blood sugar diagnostic test strip 100 Each 1 Sig: Accu chek guide me test strips patient checks sugars 3 times daily Dx E11.42 Please review and advise. Valentin Champagne MA documented in this encounter [facility] 10-03-2022 Miscellaneous Notes Patient here with her son in law and is requesting an order for a parking placard. documented in this encounter [facility] 09-29-2022 History of Present illness Narrative Images from the original note were not included. [facility] Arianna Rosales APRN-CORPORATE CONSULTANT. [address] [place] [address] Dept Dept. Visit Date: September 29, 2022 Chief Complaint: Patient presents with: Diabetes History of Present Illness Juana Handy is a 57 year old female here today for diabetes follow-up visit. Patient has type 2 diabetes. Feeling well today, no concerns. Denies dizziness, chest pain, shortness of breath, changes in vision, fatigue. Denies polydipsia, polyphagia, polyuria. Has chronic neuropathy in her feet. She needs to have her teeth pulled but they will not due it until her A1C is around 8. Having difficulty with eating. Home Blood Sugars: 250-300, one reading was 329 Medication Compliance: Taking her insulin before she eats and it is making her nauseous Low Blood Sugars: None Diet: Counts carbs, no more than 45 grams a meal Exercise: none Eye Exam: Due in November Podiatry: Follows with Dr. Shin Tobacco use - No Alcohol use - No Stopped taking Cymbalta due to side effects. Still taking her Gabapentin. PAST MEDICAL HISTORY Diagnosis Date Diabetes mellitus (HCC) Essential hypertension Fibromyalgia High cholesterol Social History Tobacco Use Smoking status: Never Smokeless tobacco: Never Vaping Use Vaping Use: Never used Substance Use Topics Alcohol use: Never Drug use: Never Social History Social History Narrative Not on file ALLERGIES Allergen Reactions Lavender (Lavandula* Rash Metformin GI Upset Latex Rash Current Outpatient Medications Medication Sig glimepiride (AMARYL) 4 mg tablet Take 2 tablets by mouth daily with breakfast. atorvastatin (LIPITOR) 40 mg tablet Take 1 tablet by mouth once daily. lisinopril (ZESTRIL, PRINIVIL) 20 mg tablet Take 1 tablet by mouth once daily. insulin lispro (HUMALOG KWIKPEN INSULIN) 100 unit/mL Inject 35 Units subcutaneously three times daily before meals. insulin glargine (LANTUS SOLOSTAR U-100 INSULIN) 100 unit/mL (3 mL) Inject 60 Units subcutaneously daily at bedtime. Lancets (ACCU-CHEK FASTCLIX LANCET DRUM) lancets Lancets and lancing device. patient checks sugars 3 times daily Dx E11.42 metoprolol tartrate, short acting, (LOPRESSOR) 25 mg tablet Take 1 tablet by mouth twice daily. pantoprazole DR (PROTONIX) 40 mg tablet Take 1 tablet by mouth once daily. gabapentin (NEURONTIN) 600 mg tablet Take 1 tablet by mouth twice daily for 90 days. albuterol HFA (PROAIR HFA) 90 mcg/actuation inhaler Inhale 2 Puffs as instructed every 4 hours as needed for wheezing/shortness of breath. MULTI-VITAMIN ORAL Take 1 tablet by mouth once daily. Blood-Glucose Meter (ACCU-CHEK GUIDE ME GLUCOSE MTR) patient checks sugars 3 times daily Dx E11.42 aspirin 81 mg chewable tablet Take 81 mg by mouth. semaglutide (OZEMPIC) 0.25 mg or 0.5 mg(2 mg/1.5 mL) pen Inject 0.5 mg subcutaneously one time a week. blood sugar diagnostic test strip Accu chek guide me test strips patient checks sugars 3 times daily Dx E11.42 No current facility-administered medications for this visit. Review of Systems Review of Systems Constitutional: Negative for appetite change, chills, diaphoresis and fever. Respiratory: Negative for chest tightness and shortness of breath. Cardiovascular: Negative for chest pain and palpitations. Gastrointestinal: Positive for abdominal pain and nausea. Negative for diarrhea and vomiting. Neurological: Negative for dizziness, light-headedness and headaches. Physical Exam BP 126/70 Pulse 80 Temp 97.8 Ht 5' 4" (1.63m) Wt 217 lb (98.4kg) SpO2 99% BMI 37.23 kg/(m^2). Last 3 Encounter BP Readings: Date: BP: 09/29/2022 126/70 04/21/2022 120/72 03/04/2022 124/78 Physical Exam Vitals and nursing note reviewed. Constitutional: Appearance: She is obese. HENT: Head: Normocephalic. Nose: Nose normal. Mouth/Throat: Mouth: Mucous membranes are moist. Dentition: Abnormal dentition. Gingival swelling and dental caries present. Pharynx: Oropharynx is clear. Eyes: Pupils: Pupils are equal, round, and reactive to light. Cardiovascular: Rate and Rhythm: Normal rate and regular rhythm. Heart sounds: Normal heart sounds. No murmur heard. Pulmonary: Effort: Pulmonary effort is normal. Breath sounds: No wheezing, rhonchi or rales. Abdominal: General: Bowel sounds are normal. There is no distension. Palpations: Abdomen is soft. Tenderness: There is no abdominal tenderness. Skin: General: Skin is warm and dry. Neurological: Mental Status: She is alert and oriented to person, place, and time. Psychiatric: Mood and Affect: Mood normal. Behavior: Behavior is cooperative. Cognition and Memory: Cognition normal. Lab Results Component Value Date Hemoglobin A1C 11.6 (H) 08/28/2022 Hemoglobin A1C 12.6 (H) 01/20/2022 Lab Results Component Value Date Cholesterol, Total 200 (H) 01/20/2022 Lab Results Component Value Date LDL Cholesterol 99 01/20/2022 Lab Results Component Value Date HDL Cholesterol 46 01/20/2022 Lab Results Component Value Date Creatinine 0.68 01/20/2022 Assessment and Plan Encounter Diagnosis ICD-10-CM 1. Type 2 diabetes mellitus with peripheral neuropathy (HCC) E11.42 semaglutide (OZEMPIC) 0.25 mg or 0.5 mg(2 mg/1.5 mL) pen blood sugar diagnostic test strip 2. Painful mouth K13.79 3. Dental caries K02.9 4. Lung nodule R91.1 5. Gastroesophageal reflux disease, unspecified whether esophagitis present K21.9 ASSESSMENT/PLAN: 1. Type 2 diabetes mellitus with peripheral neuropathy (HCC) - ICD9: 250.60, 357.2, ICD10: E11.42 (primary diagnosis) Uncontrolled- A1C in August was 11.6 which is improved from 12.6 - Patient requesting to change Victoza to Ozempic due to side effects of GI upset. Advised this medication could cause the same side effects but she would like to switch. Start on 0.5 mg weekly and may increase based on tolerance to 1 mg weekly. - Continue Amaryl, Humalog 35 units with meals, and Lantus 60 units at bedtime. - Discontinue Victoza - Blood glucose monitoring on a four times a day and before meals schedule - Encouraged regular aerobic exercise and weight loss - Follow up in 2 months, sooner should any other issues arise. - BP goal of <130/80 - LDL goal of <100 - OZEMPIC 0.25 MG OR 0.5 MG (2 MG/1.5 ML) SUBCUTANEOUS PEN INJECTOR - BLOOD SUGAR DIAGNOSTIC STRIPS 2. Painful mouth - ICD9: 528.9, ICD10: K13.79 3. Dental caries - ICD9: 521.00, ICD10: K02.9 4. Lung nodule - ICD9: 793.11, ICD10: R91.1 - Recent CT chest showed stability of lung nodules 5. Gastroesophageal reflux disease, unspecified whether esophagitis present - ICD9: 530.81, ICD10: K21.9 - Discussed lifestyle modifications including losing weight, limiting caffeine, no meals three hours before sleep, and head of bed elevation - Continue treatment with Protonix 40 mg daily Return in about 2 months (around 11/27/2022) for DM follow-up. Discussed above plan with patient and/or caregiver. Patient and/or caregiver agreeable with above plan. Arianna Rosales APRN.CNP, signed on September 29, 2022 2:11 PM documented in this encounter [facility] 08-29-2022 Miscellaneous Notes Patient aware. Kristin Donaldson MA Requesting my chart to be sent. He rA1C is still uncontrolled. It only came down to 11.6. Is she taking her insulin as prescribed? She really needs to see Endo to get this more controlled. I placed a new referral. Endocrinology: Dr. Shanell Maciel MD [address] [place] [address] In the meantime, I am going to increase her Amaryl to 8 mg daily and her Victoza to 1.8 mg SQ once daily. documented in this encounter [facility] 07-21-2022 Miscellaneous Notes Patient requesting refills as follows: Last Office Visit 04/21/22. Last Refill 02/03/22 for humalog, lantus, and amaryl. 02/06/22 for metoprolol, lancets, and pantoprazole. 02/06/22 for test strips, and pantoprazole, 03/18/22 for victoza. 04/21/22 for albuterol inhaler and gabapentin Requested Prescriptions Pending Prescriptions Disp Refills insulin lispro (HUMALOG KWIKPEN INSULIN) 100 unit/mL 9 Each 2 Sig: Inject 35 Units subcutaneously three times daily before meals. insulin glargine (LANTUS SOLOSTAR U-100 INSULIN) 100 unit/mL (3 mL) 5 Each 2 Sig: Inject 60 Units subcutaneously daily at bedtime. glimepiride (AMARYL) 2 mg tablet 90 tablet 2 Sig: Take 3 tablets by mouth daily with breakfast. blood sugar diagnostic test strip 100 Each 1 Sig: Accu chek guide me test strips patient checks sugars 3 times daily Dx E11.42 Lancets (ACCU-CHEK FASTCLIX LANCET DRUM) lancets 100 Each 1 Sig: Lancets and lancing device. patient checks sugars 3 times daily Dx E11.42 metoprolol tartrate, short acting, (LOPRESSOR) 25 mg tablet 60 tablet 2 Sig: Take 1 tablet by mouth twice daily. pantoprazole DR (PROTONIX) 40 mg tablet 30 tablet 2 Sig: Take 1 tablet by mouth once daily. liraglutide (VICTOZA 2-PUMA) 0.6 mg/0.1 mL (18 mg/3 mL) 2 Each 2 Sig: Inject 1.2 mg subcutaneously once daily. gabapentin (NEURONTIN) 600 mg tablet 60 tablet 2 Sig: Take 1 tablet by mouth twice daily for 90 days. albuterol HFA (PROAIR HFA) 90 mcg/actuation inhaler Sig: Inhale 2 Puffs as instructed every 4 hours as needed for wheezing/shortness of breath. Please review and advise. Michelle Hong MA documented in this encounter [facility] 07-21-2022 Miscellaneous Notes Patient requesting refills as follows: Last Office Visit 04/21/22. Last Refill 8/25/22. Requested Prescriptions Pending Prescriptions Disp Refills atorvastatin (LIPITOR) 40 mg tablet 90 tablet 0 Sig: Take 1 tablet by mouth once daily. lisinopril (ZESTRIL, PRINIVIL) 20 mg tablet 90 tablet 0 Sig: Take 1 tablet by mouth once daily. Please review and advise. Michelle Hong MA documented in this encounter [facility] 05-26-2022 History of Present illness Narrative UNIVERSAL PROTOCOL / SAFETY CHECKLIST Procedure to be Performed: Total nail avulsion, R hallux Sign In: A Moment of CARE was completed. Personnel directly involved with the procedure wore the appropriate PPE (Personal Protective Equipment). No special equipment needed. Patient/Surrogate Stated/Verified: PATIENT VERIFIED(optional for EMERGENT procedures): Patient name, Date of , Relevant allergies, and The intended procedure Time Out Communication: Intended patient and procedure match the source documents. Consent documented and matches the intended procedure. No relevant labs, photos, and/or imaging studies were applicable for review. Correct side/site marked and visible. No medications required for procedure. No fire risk assessment and interventions applicable. No implant(s) inserted. Sign Out: SIGN OUT (optional for EMERGENT procedures): All specimen containers correctly labeled. All instruments, equipment, possible retained foreign bodies accounted for. Post-procedure follow-up management communicated and Plan of Care Visit completed when applicable. Kristy Parsons RN Images from the original note were not included. FOLLOW UP PODIATRIC OFFICE VISIT Chief Complaint: This 56 year old who presents for ingrowing toenail of right great toe Patient presents to clinic for evaluation of right great toe Patient states that approximately 2 weeks ago, her 65 lb dog sat on her foot and since then, her right great toe has been red, swollen and the nail appears to be lifting from the nail bed. Patient reports slight drainage . She is here to have the toe evaluated. She does have some redness also to right 2nd toe. PAIN EVALUATION 05/26/2022 1410 Pain Level: 6 Pain Location: Toe Right great toe Description: Aching;Stabbing;Throbbing Duration Amount of Time: 2 Duration Units: Weeks Frequency: Continuous Intervention/Comfort measure: Reposition;Relaxation;Distraction s Hemoglobin A1C Date Value Ref Range Status 01/20/2022 12.6 (H) 4.3 - 5.6 % Final Comment: [place] [employer] guidelines indicate that patients with HgbA1c in the range 5.7-6.4% are at increased risk for development of diabetes, and intervention by lifestyle modification may be beneficial. HgbA1c greater or equal to 6.5% is considered diagnostic of diabetes. PCP: Arianna Rosales APRN.CORPORATE CONSULTANT PAST MEDICAL HISTORY Diagnosis Date Diabetes mellitus (HCC) Essential hypertension Fibromyalgia High cholesterol Current Outpatient Medications Medication Sig MULTI-VITAMIN ORAL Take 1 tablet by mouth once daily. atorvastatin (LIPITOR) 40 mg tablet Take 1 tablet by mouth once daily lisinopril (ZESTRIL, PRINIVIL) 20 mg tablet Take 1 tablet by mouth once daily gabapentin (NEURONTIN) 600 mg tablet Take 1 tablet by mouth twice daily for 90 days. albuterol HFA (PROAIR HFA) 90 mcg/actuation inhaler Inhale 2 Puffs as instructed every 4 hours as needed for wheezing/shortness of breath. alcohol swabs Apply 1 application to affected area four times daily. liraglutide (VICTOZA) 0.6 mg/ 0.1 ml subcutaneous pen injector Inject 1.2 mg subcutaneously once daily. DULoxetine (CYMBALTA) 30 mg capsule Take 1 capsule by mouth once daily. Blood-Glucose Meter (ACCU-CHEK GUIDE ME GLUCOSE MTR) patient checks sugars 3 times daily Dx E11.42 blood sugar diagnostic test strip Accu chek guide me test strips patient checks sugars 3 times daily Dx E11.42 Lancets (ACCU-CHEK FASTCLIX LANCET DRUM) lancets Lancets and lancing device. patient checks sugars 3 times daily Dx E11.42 metoprolol tartrate, short acting, (LOPRESSOR) 25 mg tablet Take 1 tablet by mouth twice daily. pantoprazole DR (PROTONIX) 40 mg tablet Take 1 tablet by mouth once daily. insulin lispro (HUMALOG KWIKPEN INSULIN) 100 unit/mL Inject 35 Units subcutaneously three times daily before meals. insulin glargine (LANTUS SOLOSTAR U-100 INSULIN) 100 unit/mL (3 mL) Inject 60 Units subcutaneously daily at bedtime. glimepiride (AMARYL) 2 mg tablet Take 3 tablets by mouth daily with breakfast. insulin needles, DISPOSABLE, (PEN NEEDLE) 31 gauge x 5/16" 1 Each four times daily. aspirin 81 mg chewable tablet Take 81 mg by mouth. No current facility-administered medications for this visit. ALLERGIES Allergen Reactions Lavender (Lavandula* Rash Metformin GI Upset Latex Rash PAST SURGICAL HISTORY Procedure Laterality Date BACK SURGERY HX Physical Exam: OBJECTIVE: Constitutional: Pt is a well developed 56 year old female who is alert, oriented, cooperative and in no apparent distress. Eyes: Following during examination. No redness or drainage. Respiratory: RR normal and nonlabored. Even breathing. No evidence of distress. Psychology: Patient is engaged during conversation. Normal affect and mood. Does not appear depressed or anxious. NVSI unchanged from previous visit. Non-Invasive Vascular Laboratory [facility] Lower Extremity Arterial Physiology Study Bilateral/Complete Date of service/time: 01/13/2022 3:48:35 PM Name: JUANA HANDY Date of : 1965 Age: 56 years Gender: F Medical History Diabetes: Yes Clinical Indication Abnormal pulses and Foot pain. TECHNIQUE -------- An arterial physiological examination was performed, including measurement of blood pressures using continuous wave Doppler and recording of plethysmographic with or without Doppler waveforms at the below-mentioned limb segments. FINDINGS -------- RIGHT SIDE AT REST Right Doppler Waveforms Dorsalis pedis: Triphasic. Post tibial: Biphasic. Right Pressures Brachial: 150 mmHg Ankle dorsalis pedis: 161 mmHg SUSHILA: 1.01 Ankle posterior tibial: 175 mmHg SUSHILA: 1.09 Digit: 175 mmHg Right PVR Waveforms Ankle: Normal. Digit: Normal. LEFT SIDE AT REST Left Doppler Waveforms Dorsalis pedis: Triphasic. Post tibial: Biphasic. Left Pressures Brachial: 160 mmHg Ankle dorsalis pedis: 162 mmHg SUSHILA: 1.01 Ankle posterior tibial: 164 mmHg SUSHILA: 1.02 Digit: 158 mmHg Left PVR Waveforms Ankle: Normal. Digit: Normal. IMPRESSION RIGHT SIDE Resting right ankle brachial index: 1.09 Right toe brachial index: 1.09 Normal ankle brachial index at rest in the right leg. Normal toe brachial index at rest in the right leg. Right ankle: Normal at rest. LEFT SIDE Resting left ankle brachial index: 1.02 Left toe brachial index: 0.99 Normal ankle brachial index at rest in the left leg. Normal toe brachial index at rest in the left leg. Left ankle: Normal at rest. Technologist: Carmen Orozco T, RDMS Ordering physician: ADA SHIN Interpreting physician: Duke Fisher MD Dermatological: Right great toenail is lifting proximally with serous drainage and significant erythema Right 2nd toenail is discolored but no lifting. Slight redness noted. Musculoskeletal/Orthopaedic: Patient has pain to palpation of right great toenail ASSESSMENT: (L60.0) Ingrowing toenail with infection (primary encounter diagnosis) PLAN: Discussed ingrowing toenail of right great toe. There is infection. I do not feel antibiotic alone will resolve this infection. I do think removal is necessary. Certainly removal does carry risk most notably the risk of nonhealing in a diabetic patient that has a1c >12. Discussed risks of not removing the nail. This patient has freely elected to remove the toenail via avulsion. I ifnromed patient that a matrixectomy is not being performed due to infection and that the nail will return. If it returns deformed in future, could consider matrixectomy once a1c resolved Discussed risks of toenail procedure not limited to infection, pain, swelling, bleeding, painful scarring, recurrence, need for revised procedure. Patient consented to proceed. Patient was properly identified by name and procedure. The right hallux was then injected with 3 cc of 1% lidocaine plain. The toe was then prepped and draped in the usual aseptic technique. A digital tournicot was applied to the toe. The entire nail was then freed and removed. Careful inspection was performed to assure no remaining spicule present. Avulsion was performed. Wound cultulre performed. Sterile dressing was then applied consisting of amerigel, guaze, seferino and coban. Tournicot was removed and hyperemic response was noted. Patient tolerated well. Patient will f/u in 2 weeks. Offered removal of 2nd toenail. She would quentin to see if antibiotics help. If antibiotics do not help, would remove. Offered removal today. She declined. AMB ROOMING INTAKE FLOWSHEET DATA Risk Screening Do you have concerns about personal safety or safety in the home?: No Pain Pain Level: 6 Pain Location: Toe (Right great toe) Description: Aching, Stabbing, Throbbing Duration Amount of Time: 2 Duration Units: Weeks Frequency: Continuous Intervention/Comfort measure: Reposition, Relaxation, Distractions Patient presents with: Right Great Toe - Established Patient, Pain, Wound Infection Patient presents for Right great toe and 2nd toe infection as well as ingrown toenail to Right greater toe. Tracey Bundy RN documented in this encounter [facility] 05-26-2022 Instructions Ada Shin - 05/26/2022 2:24 PM EDT Diabetes Foot Care Instructions When you have diabetes, proper foot care is very important. Poor foot care may lead to amputation of a foot or leg. As a person with diabetes, you are more vulnerable to foot problems, because diabetes can damage your nerves and reduce blood flow to your feet. Here are some diabetes foot care tips to follow: Wash and Dry Your Feet Daily Use mild soaps Use warm water Pat your skin dry; do not rub. Thoroughly dry your feet. After washing, use lotion on your feet to prevent cracking. Do not put lotion between your toes. Examine Your Feet Each Day Check the tops and bottoms of your feet. Have someone else look at your feet if you cannot see them. Check for dry, cracked skin. Look for blisters, cuts, scratches, or other sores. Check for redness, increased warmth, or tenderness when touching any area of your feet. Check for ingrown toenails, corns, and calluses. If you get a blister or sore from your shoes, do not "pop" it. Apply a bandage and wear a different pair of shoes. Take Care of Your Toenails Cut toenails after bathing, when they are soft. Cut toenails straight across and smooth with a nail file. Avoid cutting into the corners of toes. Do not cut cuticles. If you have neuropathy (or decreased sensation in your feet) a toy assembly supervisor should always cut your toenails. Be Careful When Exercising Walk and exercise in comfortable shoes. Do not exercise when you have open sores on your feet. Protect Your Feet With Shoes and Socks Never go barefoot. Always protect your feet by wearing shoes or hard-soled slippers or footwear. Avoid shoes with high heels and pointed toes. Avoid shoes that expose your toes or heels (such as open-toed shoes or sandals). These types of shoes increase your risk for injury and potential infections. Try on new footwear with the type of socks you usually wear. Do not wear new shoes for more than an hour at a time. Change your socks daily. Look and feel inside your shoes before putting them on to make sure there are no foreign objects or rough areas. Avoid tight socks. Wear natural-fiber socks (cotton, wool, or a cotton-wool blend). Wear special shoes if your health care provider recommends them. Wear shoes/boots that will protect your feet from various weather conditions (cold, moisture, etc.). Make sure your shoes fit properly. If you have neuropathy (nerve damage), you may not notice that your shoes are too tight. Perform the "footwear test" described below. Footwear Test Use this simple test to see if your shoes fit correctly: Stand on a piece of paper. (Make sure you are standing and not sitting, because your foot changes shape when you stand.) Trace the outline of your foot. Trace the outline of your shoe. Compare the tracings: Is the shoe too narrow? Is your foot crammed into the shoe? The shoe should be at least 1/2 inch longer than your longest toe and as wide as your foot. Proper Shoe Choices The following types of shoes are best for people with diabetes Closed toes and heels Leather uppers without a seam inside At least 1/2 inch extra space at the end of your longest toe Inside of shoe should be soft with no rough areas Outer sole should be made of stiff material Shoes should be at least as wide as your feet Tips for Foot Care in Diabetes Don't wait to treat a minor foot problem if you have diabetes. Follow your health care provider's guidelines and first aid guidelines. Report foot injuries and infections to your health care provider immediately. Check water temperature with your elbow, not your foot. Do not use a heating pad on your feet. Do not cross your legs. Do not self-treat your corns, calluses, or other foot problems. Go to your health care provider or toy assembly supervisor to treat these conditions. Post-Op Nail Instructions Minimize activity until the anesthesia wears off (about 2-8 hours). Increase activity to tolerance Remove bandage tomorrow Soak affected toe/foot in epsom salts for 15-20 minutes twice daily After soaking, apply antibiotic ointment (OTC Neosporin) to affected toe and re bandage OTC Ibuprofen if having pain, provided you have no allergies or intolerance to NSAIDS Mild drainage, redness, and blood is expected, but if you expeirence severe pain, increase in drainage, swelling, or red streaking please contact our office immediately Feel free to contact office as well if you have any questions/concerns [phone], ask for Podiatry Nurse documented in this encounter [facility] 05-08-2022 Miscellaneous Notes pharmacy electronically requesting refills as follows: Last seen 04/21/22 . Last refill both 03/18/22 . Requested Prescriptions Pending Prescriptions Disp Refills atorvastatin (LIPITOR) 40 mg tablet [Pharmacy Med Name: Atorvastatin Calcium 40 MG Oral Tablet] 90 tablet 0 Sig: Take 1 tablet by mouth once daily lisinopril (ZESTRIL, PRINIVIL) 20 mg tablet [Pharmacy Med Name: Lisinopril 20 MG Oral Tablet] 90 tablet 0 Sig: Take 1 tablet by mouth once daily Please review and advise. Valentin Champagne MA documented in this encounter [facility] 04-21-2022 Instructions Arianna Rosales APRN.CORPORATE CONSULTANT - 04/21/2022 2:22 PM EDT [facility] [address] [place] [address] Appointment: [phone] Desk: [phone] documented in this encounter [facility] 04-21-2022 History of Present illness Narrative Images from the [place] [address] Date of Evaluation: 04/21/2022 Patient Name: Juana Handy : 1965 Chief Complaint: Patient presents with: pap test Subjective Ms. Handy is a 56 year old female who presents for an annual gynecologic exam without complaints. I reviewed past medical, surgical, social, and family histories today and updated chart. Allergies, chronic medications, and supplements were also reviewed. Postmenopausal: Yes since age early 40's HRT use: No. HPV vaccine: N/A Last Pap: normal HPV: negative History of abnormal pap: No Last mammogram: 2021normal Sexually active: No Hot flashes: No Night sweats: No Vaginal dryness: No Mood swings: No Insomnia: No Review of Systems Constitutional: Positive for appetite change (decreased). Negative for chills, diaphoresis, fatigue and fever. HENT: Positive for trouble swallowing. Respiratory: Positive for cough and shortness of breath. Negative for wheezing. Cardiovascular: Positive for leg swelling. Negative for chest pain and palpitations. Gastrointestinal: Positive for nausea. Negative for abdominal pain, constipation, diarrhea and vomiting. Genitourinary: Negative for dysuria, frequency, hematuria, urgency, vaginal bleeding, vaginal discharge and vaginal pain. Musculoskeletal: Positive for arthralgias, back pain and myalgias. Skin: Negative for color change, rash and wound. Obstetric History No data available No past medical history on file. PAST SURGICAL HISTORY Procedure Laterality Date BACK SURGERY HX FAMILY HISTORY Problem Relation Age of Onset Diabetes Brother Social History Tobacco Use Smoking status: Never Smokeless tobacco: Never Substance Use Topics Alcohol use: Never Drug use: Never Current Meds atorvastatin (LIPITOR) 40 mg tablet Take 1 tablet by mouth once daily. lisinopril (ZESTRIL, PRINIVIL) 20 mg tablet Take 1 tablet by mouth once daily. alcohol swabs Apply 1 application to affected area four times daily. liraglutide (VICTOZA) 0.6 mg/ 0.1 ml subcutaneous pen injector Inject 1.2 mg subcutaneously once daily. DULoxetine (CYMBALTA) 30 mg capsule Take 1 capsule by mouth once daily. Blood-Glucose Meter (ACCU-CHEK GUIDE ME GLUCOSE MTR) patient checks sugars 3 times daily Dx E11.42 blood sugar diagnostic test strip Accu chek guide me test strips patient checks sugars 3 times daily Dx E11.42 Lancets (ACCU-CHEK FASTCLIX LANCET DRUM) lancets Lancets and lancing device. patient checks sugars 3 times daily Dx E11.42 metoprolol tartrate, short acting, (LOPRESSOR) 25 mg tablet Take 1 tablet by mouth twice daily. pantoprazole DR (PROTONIX) 40 mg tablet Take 1 tablet by mouth once daily. insulin lispro (HUMALOG KWIKPEN INSULIN) 100 unit/mL Inject 35 Units subcutaneously three times daily before meals. insulin glargine (LANTUS SOLOSTAR U-100 INSULIN) 100 unit/mL (3 mL) Inject 60 Units subcutaneously daily at bedtime. glimepiride (AMARYL) 2 mg tablet Take 3 tablets by mouth daily with breakfast. insulin needles, DISPOSABLE, (PEN NEEDLE) 31 gauge x 5/16" 1 Each four times daily. aspirin 81 mg chewable tablet Take 81 mg by mouth. gabapentin (NEURONTIN) 600 mg tablet Take 1 tablet by mouth twice daily for 90 days. albuterol HFA (PROAIR HFA) 90 mcg/actuation inhaler Inhale 2 Puffs as instructed every 4 hours as needed for wheezing/shortness of breath. I have confirmed and edited as necessary the chief complaint, medications, past medical, family and social histories. Objective BP 120/72 (BP Site: Right Arm, BP Position: Sitting, BP Cuff Size: Large Adult) Pulse 74 Temp 36.7 C (98.1 F) Resp 16 Ht 162.6 cm (5' 4") Wt 100.4 kg (221 lb 6.4 oz) SpO2 97% BMI 38.00 kg/m Physical Exam Vitals and nursing note reviewed. Constitutional: Appearance: She is obese. HENT: Mouth/Throat: Mouth: Mucous membranes are moist. Pharynx: Oropharynx is clear. Eyes: Pupils: Pupils are equal, round, and reactive to light. Cardiovascular: Rate and Rhythm: Normal rate and regular rhythm. Heart sounds: Normal heart sounds, S1 normal and S2 normal. Pulmonary: Effort: Pulmonary effort is normal. Breath sounds: Normal breath sounds and air entry. Abdominal: General: Bowel sounds are normal. There is no distension. Palpations: Abdomen is soft. There is no hepatomegaly or splenomegaly. Tenderness: There is no abdominal tenderness. Genitourinary: Exam position: Supine. George stage (genital): 5. Labia: Right: No rash, tenderness or lesion. Left: No rash, tenderness or lesion. Vagina: Vaginal discharge present. No erythema, tenderness, bleeding or lesions. Cervix: No cervical motion tenderness, discharge, friability, lesion, erythema, cervical bleeding or eversion. Comments: Plate Maker offered Daughter present in room during exam Cervix is tilted anteriorly, cervical os slit Cytology obtained AMANDA uterus position or adnexa due to body habitus Musculoskeletal: Cervical back: Neck supple. Right lower le+ Edema present. Left lower le+ Edema present. Skin: General: Skin is warm and dry. Findings: Lesion (multiple scabbed over areas to arms and upper back where she has picked and scratched it) present. Neurological: Mental Status: She is alert and oriented to person, place, and time. Psychiatric: Mood and Affect: Affect normal. Speech: Speech normal. Behavior: Behavior is cooperative. Cognition and Memory: Cognition normal. Data Reviewed: No new labs ASSESSMENT/PLAN: 1. Well woman exam with routine gynecological exam - ICD9: V72.31, ICD10: Z01.419 (primary diagnosis) Annual Gynecologic Examination - Completed pap exam - check HPV - Encouraged monthly BSE - Follow up for annual exam in one year. 2. Screening for cervical cancer - ICD9: V76.2, ICD10: Z12.4 - Completed pap exam - check HPV - PAP FLUID CERVICAL SCREENING 3. Type 2 diabetes mellitus with peripheral neuropathy (HCC) - ICD9: 250.60, 357.2, ICD10: E11.42 - To be determined based on labs - HGB A1C - GABAPENTIN 600 MG TABLET - ALBUMIN/CREAT RATIO RND UR 4. Fibromyalgia - ICD9: 729.1, ICD10: M79.7 - GABAPENTIN 600 MG TABLET 5. Decreased appetite - ICD9: 783.0, ICD10: R63.0 - CONSULT TO GASTROENTEROLOGY 6. Dysphagia, unspecified type - ICD9: 787.20, ICD10: R13.10 - Denies any choking/aspiration issues - CONSULT TO GASTROENTEROLOGY Return in about 3 months (around 07/22/2022) for DM follow-up. Discussed the above with the patient using shared decision making. The patient is in agreement with the diagnostic and treatment plans. Arianna Rosales APRN.JOVANA documented in this encounter [facility] 04-14-2022 Miscellaneous Notes Patient called in to cancel appointment today 04/14/2022 at 1:45. Called patient back to discuss rescheduling. Patient was rescheduled for May 05 at 3;15 documented in this encounter [facility] 03-25-2022 Miscellaneous Notes Patient is completley out needs today requesting refills: Last office visit 03/04/2022. Last refill 02/06/2022 nov 04/21/2022 Pending Prescriptions Disp Refills GABAPENTIN 600 MG TABLET 60 tablet 0 Sig: Take 1 tablet by mouth twice daily for 30 days. ARA: No Please review and advise. Kristin Donaldson MA documented in this encounter [facility] 03-24-2022 Miscellaneous Notes MyChart message sent to patient with results. Valentin Champagne MA Left message for patient to call back and reminder has been placed. Michelle Hong MA ----- Message from Arianna Rosales APRN.CORPORATE CONSULTANT sent at 03/23/2022 3:15 PM EDT ----- CT chest showed multiple pulmonary nodules with the largest being 8 mm. Recommendation is to repeat in 6 months- please place reminder. There was also mild esophageal wall thickening. I would recommend she sees GI for further eval. I can place the referral if she needs one. documented in this encounter [facility] 03-18-2022 Miscellaneous Notes Pharmacy requesting refills: Last office visit 03/04/2022 Last refill atorvastatin last filled 11/28/2021 lisinopril last filled 11/28/2021 04/21/2022 Pending Prescriptions Disp Refills ATORVASTATIN 40 MG TABLET 90 tablet 0 Sig: Take 1 tablet by mouth once daily. ARA: No LISINOPRIL 20 MG TABLET 90 tablet 0 Sig: Take 1 tablet by mouth once daily. ARA: No ALCOHOL SWABS 120 Each 5 Sig: Apply 1 application to affected area four times daily. ARA: No Please review and advise. Kristin Donaldson MA documented in this encounter [facility] 03-18-2022 Miscellaneous Notes Patient requesting refills: Last office visit 03/04/22. Last refill 11/11/2021 jul Pending Prescriptions Disp Refills LIRAGLUTIDE 0.6 MG/0.1 ML (18 MG/3 ML) SUBCUTANEOUS PEN INJECTOR 2 Pen 2 Sig: Inject 1.2 mg subcutaneously once daily. ARA: No Please review and advise. Kristin Donaldson MA documented in this encounter [facility] 03-04-2022 Instructions Arianna Rosales APRN.JOVANA - 03/04/2022 2:[address] [facility] ADDRESS: [address] [place] [address] PHONE NUMBER: documented in this encounter [facility] 03-04-2022 History of Present illness Narrative CHIEF COMPLAINT: Juana Handy is a 56 year old female who presents today originially for a Pap but she arrived 9 minutes into her scheduled appointment. She would just like to discuss lowering her dose of Cymbalta because it is making her feel sick and "tears up her stomach" and gives her diarrhea. She has been on the medication for years but it has always done this. She was originally prescribed it for pain for her fibromyalgia. She takes in the late morning around lunch time. She also reports she has had more trouble with her breathing when she is laying flat. She has had a sleep study in the past but cannot recall when it was. It was [facility] with [facility]. She does not currently wear a CPAP for her DARLINE because her machine was stolen. She denies any worsening SOB with normal activity. Denies CP, dizziness, palpitations. She notes that her BS had overall been coming down into the 150-200's. She hasn't seen a BS > 300. She states she tried calling the Endo but hasn't heard back from the office to schedule. She is also in the process of finding a back specialist closer to [place]. The history is provided by the patient. No english as a second language instructor was used. History reviewed. No pertinent past medical history. PAST SURGICAL HISTORY Procedure Laterality Date BACK SURGERY HX Social History Tobacco Use Smoking status: Never Smoker Smokeless tobacco: Never Used Substance Use Topics Alcohol use: Never Drug use: Never ALLERGIES Allergen Reactions Lavender (Lavandula* Rash Metformin GI Upset Latex Rash Family History Problem Relation Age of Onset Diabetes Brother Current Outpatient Medications Medication Sig Dispense Refill DULoxetine (CYMBALTA) 30 mg capsule Take 1 capsule by mouth once daily. 30 capsule 1 Blood-Glucose Meter (ACCU-CHEK GUIDE ME GLUCOSE MTR) patient checks sugars 3 times daily Dx E11.42 1 Each 0 gabapentin (NEURONTIN) 600 mg tablet Take 1 tablet by mouth twice daily for 30 days. 60 tablet 0 blood sugar diagnostic test strip Accu chek guide me test strips patient checks sugars 3 times daily Dx E11.42 100 Each 1 Lancets (ACCU-CHEK FASTCLIX LANCET DRUM) lancets Lancets and lancing device. patient checks sugars 3 times daily Dx E11.42 100 Each 1 metoprolol tartrate, short acting, (LOPRESSOR) 25 mg tablet Take 1 tablet by mouth twice daily. [address] (PROTONIX) 40 mg tablet Take 1 tablet by mouth once daily. 30 tablet 2 insulin lispro (HUMALOG KWIKPEN INSULIN) 100 unit/mL Inject 35 Units subcutaneously three times daily before meals. 9 Pen 2 insulin glargine (LANTUS SOLOSTAR U-100 INSULIN) 100 unit/mL (3 mL) Inject 60 Units subcutaneously daily at bedtime. 5 Pen 2 glimepiride (AMARYL) 2 mg tablet Take 3 tablets by mouth daily with breakfast. 90 tablet 2 insulin needles, DISPOSABLE, (PEN NEEDLE) 31 gauge x 5/16" 1 Each four times daily. 120 Each 5 alcohol swabs Apply 1 application to affected area four times daily. 120 Each 5 atorvastatin (LIPITOR) 40 mg tablet Take 1 tablet by mouth once daily. 90 tablet 0 lisinopril (ZESTRIL, PRINIVIL) 20 mg tablet Take 1 tablet by mouth once daily. 90 tablet 0 aspirin 81 mg chewable tablet Take 81 mg by mouth. liraglutide (VICTOZA) 0.6 mg/ 0.1 ml subcutaneous pen injector Inject 1.2 mg subcutaneously once daily. 2 Pen 2 albuterol HFA (PROAIR HFA) 90 mcg/actuation inhaler Inhale 2 Puffs as instructed every 4 hours as needed for wheezing/shortness of breath. 1 Inhaler 1 No current facility-administered medications for this visit. Review of Systems Constitutional: Negative for appetite change, chills, diaphoresis, fatigue and fever. HENT: Negative for trouble swallowing. Eyes: Negative for visual disturbance. Respiratory: Positive for cough and shortness of breath (with laying flat). Negative for wheezing. Cardiovascular: Negative for chest pain, palpitations and leg swelling. Gastrointestinal: Positive for abdominal pain (after Cymbalta), diarrhea (after taking Cymbalta) and nausea (after taking Cymbalta). Negative for abdominal distention, anal bleeding, blood in stool, constipation and vomiting. Endocrine: Negative for polydipsia, polyphagia and polyuria. Genitourinary: Negative for dysuria, frequency, hematuria and urgency. Musculoskeletal: Positive for arthralgias, back pain and myalgias. Skin: Negative for rash. Neurological: Negative for dizziness, syncope, light-headedness and headaches. BP 124/78 Pulse 95 Temp 98.5 Resp 18 Ht 5' 4.02" (1.63m) Wt 224 lb (101.6kg) SpO2 98% BMI 38.43 kg/(m^2). Physical Exam Vitals and nursing note reviewed. Constitutional: Appearance: She is obese. HENT: Head: Normocephalic. Nose: Nose normal. Mouth/Throat: Mouth: Mucous membranes are moist. Pharynx: Oropharynx is clear. Eyes: Pupils: Pupils are equal, round, and reactive to light. Cardiovascular: Rate and Rhythm: Normal rate and regular rhythm. Heart sounds: Normal heart sounds. No murmur heard. Pulmonary: Effort: Pulmonary effort is normal. Breath sounds: No wheezing, rhonchi or rales. Abdominal: General: Bowel sounds are normal. There is no distension. Palpations: Abdomen is soft. Tenderness: There is no abdominal tenderness. Skin: General: Skin is warm and dry. Neurological: Mental Status: She is alert and oriented to person, place, and time. Psychiatric: Mood and Affect: Mood normal. Behavior: Behavior is cooperative. Cognition and Memory: Cognition normal. No visits with results within 1 Day(s) from this visit. Latest known visit with results is: Appointment on 01/20/2022 Component Date Value Ref Range Status Cholesterol, Total 01/20/2022 200 (A) <200 mg/dL Final <200 mg/dL, Desirable 200-239 mg/dL, Borderline high >239 mg/dL, High Triglyceride 01/20/2022 275 (A) <150 mg/dL Final <150 mg/dL, Normal 150-199 mg/dL, Borderline high 200-499 mg/dL, High >499 mg/dL, Very high HDL Cholesterol 01/20/2022 46 >39 mg/dL Final 40-59 mg/dL, Acceptable >59 mg/dL, High: Negative risk factor for coronary heart disease <40 mg/dL, Low: Positive risk factor for coronary heart disease Non HDL Cholesterol 01/20/2022 154 (A) <130 mg/dL Final <130 mg/dL, Optimal 130-159 mg/dL, Near optimal/above optimal 160-189 mg/dL, Borderline high 190-219 mg/dL, High >219 mg/dL, Very high Secondary prevention optimal non HDL Cholesterol levels are recommended to be <100 mg/dL Fasting Time 01/20/2022 12 hrs Final VLDL Cholesterol 01/20/2022 55 (A) <30 mg/dL Final TC:HDL Ratio 01/20/2022 4.35 <5.10 Final LDL Cholesterol 01/20/2022 99 <100 mg/dL Final <100 mg/dL, Optimal 100-129 mg/dL, Near optimal/above optimal 130-159 mg/dL, Borderline high 160-189 mg/dL, High >189 mg/dL, Very high Secondary prevention optimal LDL Cholesterol levels are recommended to be < 70 mg/dL LDL:HDL Ratio 01/20/2022 2.15 <2.54 Final Reference: 1. National Cholesterol Education Program ATP III Guideline At-A-Glance Quick Desk Reference: National Heart, Lung, and Blood [place]. National Institutes of Health. 2001: NIH Publication No. 01-3305. 2. An International Atherosclerosis Society position paper: global recommendations for the management of dyslipidemia: executive summary, Atherosclerosis. 2014: 232(2):410-413. WBC 01/20/2022 7.69 3.70 - 11.00 k/uL Final RBC 01/20/2022 4.69 3.90 - 5.20 m/uL Final Hemoglobin 01/20/2022 13.6 11.5 - 15.5 g/dL Final Hematocrit 01/20/2022 39.9 36.0 - 46.0 % Final MCV 01/20/2022 85.1 80.0 - 100.0 fL Final MCH 01/20/2022 29.0 26.0 - 34.0 pg Final MCHC 01/20/2022 34.1 30.5 - 36.0 g/dL Final RDW-CV 01/20/2022 12.8 11.5 - 15.0 % Final Platelet Count 01/20/2022 306 150 - 400 k/uL Final MPV 01/20/2022 10.5 9.0 - 12.7 fL Final Neut% 01/20/2022 68.5 % Final Abs Neut 01/20/2022 5.27 1.45 - 7.50 k/uL Final Lymph% 01/20/2022 24.7 % Final Abs Lymph 01/20/2022 1.90 1.00 - 4.00 k/uL Final [place]% 01/20/2022 4.7 % Final Abs [place] 01/20/2022 0.36 <0.87 k/uL Final Eosin% 01/20/2022 1.8 % Final Abs Eosin 01/20/2022 0.14 <0.46 k/uL Final Baso% 01/20/2022 0.3 % Final Abs Baso 01/20/2022 <0.03 <0.11 k/uL Final Diff Type 01/20/2022 Auto Final Protein, Total 01/20/2022 7.9 6.3 - 8.0 g/dL Final Albumin 01/20/2022 4.2 3.9 - 4.9 g/dL Final Calcium, Total 01/20/2022 9.4 8.5 - 10.2 mg/dL Final Bilirubin, Total 01/20/2022 0.7 0.2 - 1.3 mg/dL Final Alkaline Phosphatase 01/20/2022 117 34 - 123 U/L Final AST 01/20/2022 16 13 - 35 U/L Final ALT 01/20/2022 15 7 - 38 U/L Final Glucose 01/20/2022 333 (A) 74 - 99 mg/dL Final The [place] Diabetes [employer] (ADA) provides guidance for cutoff values for fasting glucose and random glucose. The ADA defines fasting as no caloric intake for at least 8 hours. Fasting plasma glucose results between 100 to 125 mg/dL indicate increased risk for diabetes (prediabetes). Fasting plasma glucose results greater than or equal to 126 mg/dL meet the criteria for diagnosis of diabetes. In the absence of unequivocal hyperglycemia, results should be confirmed by repeat testing. In a patient with classic symptoms of hyperglycemia or hyperglycemic crisis, random plasma glucose results greater than or equal to 200 mg/dL meet the criteria for diagnosis of diabetes. Reference: Standards of Medical Care in Diabetes 2016, [place] [employer]. Diabetes Care. 2016.39(Suppl 1). BUN 01/20/2022 15 7 - 21 mg/dL Final Creatinine 01/20/2022 0.68 0.58 - 0.96 mg/dL Final Sodium 01/20/2022 135 (A) 136 - 144 mmol/L Final Potassium 01/20/2022 3.7 3.7 - 5.1 mmol/L Final Chloride 01/20/2022 98 97 - 105 mmol/L Final CO2 01/20/2022 25 22 - 30 mmol/L Final Anion Gap 01/20/2022 12 9 - 18 mmol/L Final Estimated Glomerular Filtration Ra* 01/20/2022 102 >=60 mL/min/1.73m Final Estimated Glomerular Filtration Rate (eGFR) is calculated using the 2020 CKD-EPI creatinine equation. This equation utilizes serum creatinine, sex, and age as parameters. The creatinine assay has traceable calibration to isotope dilution-mass spectrometry. Refer to KDIGO guidelines for clinical interpretation. In patients with unstable renal function, e.g. those with acute kidney injury, the eGFR may not accurately reflect actual GFR. Hemoglobin A1C 01/20/2022 12.6 (A) 4.3 - 5.6 % Final [place] [employer] guidelines indicate that patients with HgbA1c in the range 5.7-6.4% are at increased risk for development of diabetes, and intervention by lifestyle modification may be beneficial. HgbA1c greater or equal to 6.5% is considered diagnostic of diabetes. Estimated Average Glucose 01/20/2022 315 mg/dL Final eAG: (Estimated average glucose) is a calculated value from HgbA1c and is loan servicing representative of the average blood glucose level in the last 2-3 month period. Hep C Antibody IA 01/20/2022 Negative Negative Final ASSESSMENT/PLAN: 1. Fibromyalgia - ICD9: 729.1, ICD10: M79.7 (primary diagnosis) - We discussed lowering her dose to 30 mg daily to see if this improves her symptoms, if not may need further workup for the abdominal pain, nausea, and diarrhea. - DULOXETINE 30 MG CAPSULE,DELAYED RELEASE 2. Breathlessness lying flat - ICD9: 786.02, ICD10: R06.01 - I was unable to locate a previous sleep study in her Care Everywhere with [facility]. Patient states she will call [facility] to have her results faxed over to the office. May need repeat study if > 5 years. She hasn't been wearing her CPAP for over a year now. New medication(s) prescribed today: None. Counseling completed in adopting health behaviors such as avoiding excessive alcohol use, avoid tobacco use, improve nutrition, and engage in physical activities. Copy of written care plan, clinical summary, treatment plan, new medications, goals, and self management requirements were given to patient. Patient needs a DM appt in April. Arianna Rosales APRN.CNP documented in this encounter [facility] 02-24-2022 History of Present illness Narrative Images from the original note were not included. Last saw Arianna Rosales: 12/10/21 FOLLOW UP PODIATRIC OFFICE VISIT Chief Complaint: This 56 year old who presents for follow up:ingrowing toenail of right great toe. Patient presents to clinic for evaluation of right foot. She complains of painful ingrowing toenail of right great toe. She denies any drainage or redness. She would like to proceed with matrixectomy of right great toe. Patient has pvr to review. Of note, she has recent a1c drawn. PAIN EVALUATION 02/24/2022 1329 Pain Level: 4 Pain Location: Toe Description: Stabbing/Not Incision;Numbness;Shooting Duration Amount of Time: years Duration Units: Years Frequency: Intermittent Intervention/Comfort measure: Medication;Reposition;Relaxation Hemoglobin A1C Date Value Ref Range Status 01/20/2022 12.6 (H) 4.3 - 5.6 % Final Comment: [place] [employer] guidelines indicate that patients with HgbA1c in the range 5.7-6.4% are at increased risk for development of diabetes, and intervention by lifestyle modification may be beneficial. HgbA1c greater or equal to 6.5% is considered diagnostic of diabetes. PCP: Arianna Rosales APRN.CNP No past medical history on file. Current Outpatient Medications Medication Sig Blood-Glucose Meter (ACCU-CHEK GUIDE ME GLUCOSE MTR) patient checks sugars 3 times daily Dx E11.42 gabapentin (NEURONTIN) 600 mg tablet Take 1 tablet by mouth twice daily for 30 days. blood sugar diagnostic test strip Accu chek guide me test strips patient checks sugars 3 times daily Dx E11.42 Lancets (ACCU-CHEK FASTCLIX LANCET DRUM) lancets Lancets and lancing device. patient checks sugars 3 times daily Dx E11.42 metoprolol tartrate, short acting, (LOPRESSOR) 25 mg tablet Take 1 tablet by mouth twice daily. pantoprazole DR (PROTONIX) 40 mg tablet Take 1 tablet by mouth once daily. DULoxetine (CYMBALTA) 60 mg capsule Take 1 capsule by mouth once daily. insulin lispro (HUMALOG KWIKPEN INSULIN) 100 unit/mL Inject 35 Units subcutaneously three times daily before meals. insulin glargine (LANTUS SOLOSTAR U-100 INSULIN) 100 unit/mL (3 mL) Inject 60 Units subcutaneously daily at bedtime. glimepiride (AMARYL) 2 mg tablet Take 3 tablets by mouth daily with breakfast. insulin needles, DISPOSABLE, (PEN NEEDLE) 31 gauge x 5/16" 1 Each four times daily. alcohol swabs Apply 1 application to affected area four times daily. atorvastatin (LIPITOR) 40 mg tablet Take 1 tablet by mouth once daily. lisinopril (ZESTRIL, PRINIVIL) 20 mg tablet Take 1 tablet by mouth once daily. aspirin 81 mg chewable tablet Take 81 mg by mouth. liraglutide (VICTOZA) 0.6 mg/ 0.1 ml subcutaneous pen injector Inject 1.2 mg subcutaneously once daily. albuterol HFA (PROAIR HFA) 90 mcg/actuation inhaler Inhale 2 Puffs as instructed every 4 hours as needed for wheezing/shortness of breath. meloxicam (MOBIC) 15 mg tablet Take 15 mg by mouth. (Patient not taking: Reported on 02/24/2022 ) No current facility-administered medications for this visit. ALLERGIES Allergen Reactions Lavender (Lavandula* Rash Metformin GI Upset Latex Rash PAST SURGICAL HISTORY Procedure Laterality Date BACK SURGERY HX Physical Exam: OBJECTIVE: Constitutional: Pt is a well developed 56 year old female who is alert, oriented, cooperative and in no apparent distress. Eyes: Following during examination. No redness or drainage. Respiratory: RR normal and nonlabored. Even breathing. No evidence of distress. Psychology: Patient is engaged during conversation. Normal affect and mood. Does not appear depressed or anxious. Vascular: DP and PT pulses are palpable to b/l feet. CFT is less than 5 seconds. Skin temperature is warm to warm. Non-Invasive Vascular Laboratory [facility] Lower Extremity Arterial Physiology Study Bilateral/Complete Date of service/time: 01/13/2022 3:48:35 PM Name: JUANA HANDY Date of : 1965 Age: 56 years Gender: F Medical History Diabetes: Yes Clinical Indication Abnormal pulses and Foot pain. TECHNIQUE -------- An arterial physiological examination was performed, including measurement of blood pressures using continuous wave Doppler and recording of plethysmographic with or without Doppler waveforms at the below-mentioned limb segments. FINDINGS -------- RIGHT SIDE AT REST Right Doppler Waveforms Dorsalis pedis: Triphasic. Post tibial: Biphasic. Right Pressures Brachial: 150 mmHg Ankle dorsalis pedis: 161 mmHg SUSHILA: 1.01 Ankle posterior tibial: 175 mmHg SUSHILA: 1.09 Digit: 175 mmHg Right PVR Waveforms Ankle: Normal. Digit: Normal. LEFT SIDE AT REST Left Doppler Waveforms Dorsalis pedis: Triphasic. Post tibial: Biphasic. Left Pressures Brachial: 160 mmHg Ankle dorsalis pedis: 162 mmHg SUSHILA: 1.01 Ankle posterior tibial: 164 mmHg SUSHILA: 1.02 Digit: 158 mmHg Left PVR Waveforms Ankle: Normal. Digit: Normal. IMPRESSION RIGHT SIDE Resting right ankle brachial index: 1.09 Right toe brachial index: 1.09 Normal ankle brachial index at rest in the right leg. Normal toe brachial index at rest in the right leg. Right ankle: Normal at rest. LEFT SIDE Resting left ankle brachial index: 1.02 Left toe brachial index: 0.99 Normal ankle brachial index at rest in the left leg. Normal toe brachial index at rest in the left leg. Left ankle: Normal at rest. Technologist: Carmen Orozco T, RDMS Ordering physician: ADA SHIN Interpreting physician: Duke Fisher MD Dermatological: Nails 1-5 b/l are thick, incuvated, painful, elongated. Webspaces clean and dry 1-4 b/l. Skin appears well hydrated and supple. good color, texture, turgor. No open lesions present. No callosities present. Musculoskeletal/Orthopaedic: Patient has pain to palpation of right great toenail. ASSESSMENT: Onychomycosis (primary encounter diagnosis) Pain in toe of left foot Pain in toe of right foot Type 2 diabetes mellitus with peripheral neuropathy (hcc) Ingrowing toenail PLAN: Patient was examined today and found to have painful ingrowing toenail, primarily of the right great toe. No signs of infection. Reviewed pvr. Patient has adequate perfusion to heal a toenail procedure. Of note, she recently had her a1c drawn and her a1c was 12.3. Given the poor control of her sugars, I do not feel elecive removal of a toenail at this time would not be idea; as removal of ingrown toenail absent for infection in a patient with poorly controlled diabetes can result in poor healing. Today, debridement of toenails 1-5 b/l was performed. Will hold on removal until her a1c is controlled. Small bleed present to right 4th toe. Band aid applied. Call if any issues arise. Ada Shin DPM AMB ROOMING INTAKE FLOWSHEET DATA Risk Screening Do you have concerns about personal safety or safety in the home?: No Pain Pain Level: 4 Pain Location: Toe Description: Stabbing/Not Incision, Numbness, Shooting Duration Amount of Time: (years) Duration Units: Years Frequency: Intermittent Intervention/Comfort measure: Medication, Reposition, Relaxation Patient presents with: Right Great Toe - Established Patient, Ingrown Toenail, Pain documented in this encounter [facility] 02-24-2022 Instructions Ada Shin - 02/24/2022 2:21 PM EDT Would plan for removal of ingrowing toenail once a1c below 8.0 Now if you develop infection, then would proceed with removal. documented in this encounter [facility] 02-06-2022 Miscellaneous Notes New order signed. [place] pharmacist at [facility] states they received meter script and fastclix is not a type of meter just a lancing device. Spoke with patient and she checked her test strips and they are actually accu chek guide me test strips and she states she needs a refill of those also and lancets and her gabapentin. Scripts set up. Valentin Champagne MA Order placed. Patient left message stating she went to check her sugar this morning and her glucometer is missing and she cannot find it anywhere. States someone abruptly moved out last night, snuck out of a window, and she thinks he took it because he is diabetic. Patient would like to know if she can have a new accu chek fastclix meter. Please advise. Valentin Champagne MA documented in this encounter [facility] 02-05-2022 Miscellaneous Notes Patient notified of all information and voiced understanding. Reminder placed. Kristin Donaldson MA Called left another message for patient to contact the office. Kristin Donaldson MA Called left message for patient to contact the office. Kristin Donaldson MA Called left message for patient to contact the office. Kristin Donaldson MA Please let the patient know that her Hep C was negative. CBC was normal. Lipid panel is still above goal with her triglycerides. She needs to start following a low fat diet and decrease her sweets and sugar intake. Continue current dose of Lipitor. A1C is up to 12.6. I want to increase her Amaryl dose to 6 mg (3 tablets) once daily with breakfast. She will also increase her Lantus to 60 units SQ at bedtime. Increase her meal time insulin to 35 units with meals. Recheck A1C and lipid panel in 3 months. documented in this encounter [facility] 01-14-2022 Miscellaneous Notes Patient notified of results and provider's instructions. Patient verbalizes understanding. Scheduled for appointment on 02/03 per patient request for procedure. Kristy Parsons RN ----- Message from Ada Shin sent at 01/14/2022 12:53 PM EDT ----- Please call patient to inform her that her circulation is normal. If she desires removal of toenail, she can schedule procedure Ada Shin DPM ----- Message from Ada Shin sent at 01/14/2022 12:53 PM EDT ----- Please call patient to inform her that her circulation is normal. If she desires removal of toenail, she can schedule procedure Ada Testrake, DPM documented in this encounter [facility] 01-14-2022 Miscellaneous Notes Order faxed as requested. Patient aware. documented in this encounter [facility] 01-06-2022 Instructions Ada Rogelio - 01/06/2022 11:36 AM EDT Diabetes Foot Care Instructions When you have diabetes, proper foot care is very important. Poor foot care may lead to amputation of a foot or leg. As a person with diabetes, you are more vulnerable to foot problems, because diabetes can damage your nerves and reduce blood flow to your feet. Here are some diabetes foot care tips to follow: Wash and Dry Your Feet Daily Use mild soaps Use warm water Pat your skin dry; do not rub. Thoroughly dry your feet. After washing, use lotion on your feet to prevent cracking. Do not put lotion between your toes. Examine Your Feet Each Day Check the tops and bottoms of your feet. Have someone else look at your feet if you cannot see them. Check for dry, cracked skin. Look for blisters, cuts, scratches, or other sores. Check for redness, increased warmth, or tenderness when touching any area of your feet. Check for ingrown toenails, corns, and calluses. If you get a blister or sore from your shoes, do not "pop" it. Apply a bandage and wear a different pair of shoes. Take Care of Your Toenails Cut toenails after bathing, when they are soft. Cut toenails straight across and smooth with a nail file. Avoid cutting into the corners of toes. Do not cut cuticles. If you have neuropathy (or decreased sensation in your feet) a toy assembly supervisor should always cut your toenails. Be Careful When Exercising Walk and exercise in comfortable shoes. Do not exercise when you have open sores on your feet. Protect Your Feet With Shoes and Socks Never go barefoot. Always protect your feet by wearing shoes or hard-soled slippers or footwear. Avoid shoes with high heels and pointed toes. Avoid shoes that expose your toes or heels (such as open-toed shoes or sandals). These types of shoes increase your risk for injury and potential infections. Try on new footwear with the type of socks you usually wear. Do not wear new shoes for more than an hour at a time. Change your socks daily. Look and feel inside your shoes before putting them on to make sure there are no foreign objects or rough areas. Avoid tight socks. Wear natural-fiber socks (cotton, wool, or a cotton-wool blend). Wear special shoes if your health care provider recommends them. Wear shoes/boots that will protect your feet from various weather conditions (cold, moisture, etc.). Make sure your shoes fit properly. If you have neuropathy (nerve damage), you may not notice that your shoes are too tight. Perform the "footwear test" described below. Footwear Test Use this simple test to see if your shoes fit correctly: Stand on a piece of paper. (Make sure you are standing and not sitting, because your foot changes shape when you stand.) Trace the outline of your foot. Trace the outline of your shoe. Compare the tracings: Is the shoe too narrow? Is your foot crammed into the shoe? The shoe should be at least 1/2 inch longer than your longest toe and as wide as your foot. Proper Shoe Choices The following types of shoes are best for people with diabetes Closed toes and heels Leather uppers without a seam inside At least 1/2 inch extra space at the end of your longest toe Inside of shoe should be soft with no rough areas Outer sole should be made of stiff material Shoes should be at least as wide as your feet Tips for Foot Care in Diabetes Don't wait to treat a minor foot problem if you have diabetes. Follow your health care provider's guidelines and first aid guidelines. Report foot injuries and infections to your health care provider immediately. Check water temperature with your elbow, not your foot. Do not use a heating pad on your feet. Do not cross your legs. Do not self-treat your corns, calluses, or other foot problems. Go to your health care provider or toy assembly supervisor to treat these conditions. Trichloroacetic acid (TCA) has been applied to the plantar warts. Rinse off in 12 hours and keep clean and dry. May bathe and shower normally starting the day after treatment The area is expected to burn and blister in about 1-3 days, if painful soak in plain, cool water. If blistered, you may drain the blister with a clean, STERILIZED needle and apply OTC antibiotic ointment and band aid to area. Repeat 2-3 times daily as needed. Tylenol or Aleve as needed for pain, provided you have no allergies to either of these. Keep scheduled follow up appointment to have wart(s) re-evaluated and/or additional treatments. documented in this encounter [facility] 01-06-2022 History of Present illness Narrative Images from the original note were not included. Consultation requested by Dr. Rosales for an opinion regarding diabetic foot exam. My final recommendations will be communicated back to the requesting physician by way of shared Medical record or letter to requesting physician via US mail. Initial Office Visit Subjective: This 56 year old female presents to clinic for diabetic foot check. Patient has the following complaints: neuropathy. Patient presents to clinic complaining of burning and tinging in her feet. She states that she has good days and bad days. She is on neurontin and that is helping. Patient admits to being diabetic for 4-5 years now. Patient +B/T/N in feet at this time. Patient +pain in legs when walking. No other pedal complaints at this time. No change in medications or medical history since last visit. Patient does complain of pain in her toenails, most notably to right great toe PAIN EVALUATION 01/06/2022 1058 Pain Level: 8 Pain Location: Foot-Left bilateral Description: Stabbing;Burning;Stabbing/Not Incision Duration Amount of Time: 5 Duration Units: Years Frequency: Intermittent Intervention/Comfort measure: Medication Comments: gabapentin No results found for: HBA1C PCP: Arianna Rosales APRN.CORPORATE CONSULTANT No past medical history on file. Current Outpatient Medications Medication Sig gabapentin (NEURONTIN) 600 mg tablet Take 1 tablet by mouth twice daily for 30 days. insulin needles, DISPOSABLE, (PEN NEEDLE) 31 gauge x 5/16" 1 Each four times daily. alcohol swabs Apply 1 application to affected area four times daily. atorvastatin (LIPITOR) 40 mg tablet Take 1 tablet by mouth once daily. lisinopril (ZESTRIL, PRINIVIL) 20 mg tablet Take 1 tablet by mouth once daily. insulin lispro (HUMALOG KWIKPEN INSULIN) 100 unit/mL Inject 30 Units subcutaneously three times daily before meals. blood sugar diagnostic test strip 1 Strip three times daily with meals. Use as instructed Lancets (ACCU-CHEK FASTCLIX LANCET DRUM) lancets 1 Each three times daily with meals. Use as instructed aspirin 81 mg chewable tablet Take 81 mg by mouth. meloxicam (MOBIC) 15 mg tablet Take 15 mg by mouth. DULoxetine (CYMBALTA) 60 mg capsule Take 1 capsule by mouth once daily. glimepiride (AMARYL) 2 mg tablet Take 1 tablet by mouth twice daily with meals. insulin glargine (LANTUS SOLOSTAR U-100 INSULIN) 100 unit/mL (3 mL) Inject 55 Units subcutaneously daily at bedtime. liraglutide (VICTOZA) 0.6 mg/ 0.1 ml subcutaneous pen injector Inject 1.2 mg subcutaneously once daily. metoprolol tartrate, short acting, (LOPRESSOR) 25 mg tablet Take 1 tablet by mouth twice daily. pantoprazole DR (PROTONIX) 40 mg tablet Take 1 tablet by mouth once daily. albuterol HFA (PROAIR HFA) 90 mcg/actuation inhaler Inhale 2 Puffs as instructed every 4 hours as needed for wheezing/shortness of breath. No current facility-administered medications for this visit. ALLERGIES Allergen Reactions Lavender (Lavandula* Rash Metformin GI Upset Latex Rash PAST SURGICAL HISTORY Procedure Laterality Date BACK SURGERY HX FAMILY HISTORY Problem Relation Age of Onset Diabetes Brother Social History Tobacco Use Smoking status: Never Smoker Smokeless tobacco: Never Used Substance Use Topics Alcohol use: Never Drug use: Never REVIEW OF SYSTEMS GENERAL: Negative for Malaise, significant weight loss, fever RESPIRATORY: Negative for cough, wheezing and shortness of breath CARDIOVASCULAR: Negative for chest pain, leg swelling and palpitations GI: Negative for abdominal discomfort, blood in stools or black stools and change in bowel habits : Negative for dysuria, frequency and incontinence MUSCULOSKELETAL: Negative for joint pain or swelling, back pain, and muscle pain. SKIN: Negative for lesions, rash, and itching. HEMATOLOGY/LYMPHOLOGY Negative for prolonged bleeding, bruising easily, and swollen nodes. ENDOCRINE: Negative for cold or heat intolerance, polyuria, polydipsia and goiter. NEURO: negative The remainder of the review of systems is noncontributory. Objective: Patient presents to clinic ambulating in [facility] Constitutional: Pt is a well developed 56 year old female who is alert, oriented, cooperative and in no apparent distress. Eyes: Following during examination. No redness or drainage. Respiratory: RR normal and nonlabored. Even breathing. No evidence of distress. Psychology: Patient is engaged during conversation. Normal affect and mood. Does not appear depressed or anxious. Vasc: DP and PT pulses are very faintly palpable bilateral. CFT is less than 5 seconds bilateral. Skin temperature is warm to warm proximal to distal bilateral. There is + edema or varicosities noted. Hair growth absent. Neuro: Protective sensation is absent to the foot and toes when tested with the 5.07 SWM bilateral. Vibratory sensation is absent at the palpable bilateral. +Significant neurological defecits. Derm: Inspection and palpation performed. Nails 1-5 b/l are painful, discolored-yellow, thick, crumbly, dystrophic and with subungal debris. Skin is thin, dry, ruborous and hair growth is absent b/l. Hyperkeratosis noted to left midfoot. NO ulcerations, scars, verruca or other lesions noted. Ortho: Ankle joint DF is full with the knee extended and full with knee flexed. No pain or crepitus noted. STJ, MTJ ROM are full and free of pain or crepitus. Muscle strength is 5/5 for dorsiflexors, plantarflexors, inverters, everters. Digital deformities include none. Assessment: (Q82.8) Porokeratosis (primary encounter diagnosis) (E11.42) Type 2 diabetes mellitus with peripheral neuropathy (HCC) (B35.1) Onychomycosis (M79.675) Pain in toe of left foot (M79.674) Pain in toe of right foot (R09.89) Diminished pulses in lower extremity Plan: 1. Patient was seen and evaluated. 2. Patient was instructed on the continued importance of diabetic foot care along with proper diet and keeping their blood sugar under control to prevent complications. Instructions given both oral and written. 3. Porokeratosis to left foot sharply debrided with 15 blade. tca applied under occlusion. Diabetic shoes ordered 4. Toenails 1-5 b/l debrided in length and thickness. Discussed ingrown of right hallux. No signs of infection. Consider matrixectomy pending pvr 5. Recommend lotion to feet. Ada Shin DPM AMB ROOMING INTAKE FLOWSHEET DATA Risk Screening Do you have concerns about personal safety or safety in the home?: No Pain Pain Level: 8 Pain Location: Foot-Left (bilateral) Description: Stabbing, Burning, Stabbing/Not Incision Duration Amount of Time: 5 Duration Units: Years Frequency: Intermittent Intervention/Comfort measure: Medication Comments: gabapentin Patient presents with: Left Foot - New: Nail care Right Foot - New: Nail care Pt states neuropathy in bilateral feet. Pt states gabapentin helps with pain relief. documented in this encounter [facility] 12-31-2021 Miscellaneous Notes [address] [address] December 31, 2021 PID: [id number] Juana Handy [address] [place] [address] Dear Ms. Handy, We are pleased to inform you that the results of your recent breast imaging exam on 12/31/2021 are normal. Early detection of cancer is very important. We also understand recommendations regarding breast cancer screening are controversial. Please discuss with your primary care provider which strategy is best for you and whether a mammogram is right for you. Your imaging studies and report will be kept on file at [facility] as part of your permanent medical record and are available for your continuing care. Thank you for allowing us to help in meeting your health care needs. Sincerely, Dr. Curry Interpreting Radiologist Count Includes [facility] (Normal over 40) documented in this encounter [facility] 12-31-2021 History of Present illness Narrative Radiology Service Progress Note PATIENT NAME: Juana Handy DATE OF SERVICE: December 31, 2021 TIME: 4:55 PM PATIENT IDENTITY VERIFICATION COMPLETED USING TWO (2) IDENTIFIERS: Name and Date of confirmed by patient verbally. FALL SCREENING: Has the patient had 2 falls in the last year or 1 fall with injury or currently using an Ambulatory Assistive Device (Walker, Cane, Wheelchair, Crutches, etc.)? No PATIENT GENDER DATA: Female. status: : No status: N/A PATIENT RELEVANT IMPLANT DATA REVIEWED: Not Applicable RADIOLOGY DEPARTMENT: Mammography PERIPHERAL IV DATA: Not applicable SIGNED BY: RT Eli(R) December 31, 2021 4:55 PM documented in this encounter [facility] 12-26-2021 Miscellaneous Notes Request sent to [facility] [phone] for records. Valentin Champagne MA documented in this encounter [facility] 12-26-2021 Miscellaneous Notes Called and reminded patient to complete fasting lab orders from October, she states she will do them on Thursday. Valentin Champagne MA documented in this encounter [facility] 12-13-2021 Miscellaneous Notes PDMP website checked and validated. All prescriptions have been APPROPRIATELY filled. No suspicious activity was identified. 12/13/2021 by Arianna Rosales APRN.CNP patient electronically requesting refills as follows: Last seen 12/10/21 . Last refill 11/11/21 . Pending Prescriptions Disp Refills GABAPENTIN 600 MG TABLET 60 tablet 0 Sig: Take 1 tablet by mouth twice daily for 30 days. ARA: No Please review and advise. Valentin Champagne MA documented in this encounter [facility] 12-10-2021 Instructions Arianna Rosales APRN.CNP - 12/10/2021 2:57 PM EDT [facility] [phone] Call [employer] about Shingrix and Tdap vaccines Complete labs and imaging documented in this encounter [facility] 12-10-2021 History of Present illness Narrative Images from the [place] [address] Date of Evaluation: 12/10/2021 Patient Name: Juana Handy : 1965 Juana Handy is a 56 year old female who presents for Well Adult. I reviewed past medical, surgical, social, and family histories today and updated chart. Allergies, chronic medications, and supplements were also reviewed. The history is provided by the patient. No english as a second language instructor was used. Toes are turning more purple/red Painful with shoes Severe neuropathy Making appt with podiatry Pap due in 2021 Normal Postmenopausal Exercise: Patient does not have an exercise routine. Patient does not exercise 30 minutes a day. Weight Trend: Last 2 Encounter Wt Readings: Date: Wt: 12/10/2021 103.9 kg (229 lb) 11/11/2021 107 kg (236 lb) Eating Habits: Patient does not maintain healthy eating habits. Types of food excess junk food, excess sweets and excess fats Tobacco Use: Tobacco Use: Never Active Problem List/Chronic Problems There are no active hospital problems to display for this patient. Health Maintenance HEPATITIS C SCREENING Never done HIV SCREENING Never done DTAP,TDAP,TD(1 - Tdap) Never done PAP TESTING Never done HPV TESTING Never done MAMMOGRAM Never done LIPID SCREEN Never done COLORECTAL CANCER SCREENING Never done SHINGRIX VACCINE(1 of 2) Never done HEALTH MAINTENANCE REVIEW: Colonoscopy, Mammogram, Tdap and Zostavax Review of Systems Constitutional: Negative for appetite change, chills, diaphoresis, fatigue, fever and unexpected weight change. HENT: Positive for trouble swallowing (choked on a piece of chicken today at lunch). Negative for congestion, dental problem, ear pain, hearing loss, mouth sores, sinus pressure, sinus pain and tinnitus. Eyes: Negative for photophobia and visual disturbance. Respiratory: Negative for cough, chest tightness, shortness of breath and wheezing. Cardiovascular: Positive for leg swelling. Negative for chest pain and palpitations. Gastrointestinal: Positive for vomiting (after choking today). Negative for abdominal pain, blood in stool, constipation, diarrhea and nausea. Heartburn Endocrine: Negative for polydipsia, polyphagia and polyuria. Genitourinary: Negative for difficulty urinating, dysuria, flank pain, frequency, hematuria, menstrual problem, pelvic pain, urgency and vaginal discharge. Musculoskeletal: Positive for arthralgias, back pain, myalgias and neck pain. Skin: Positive for color change (feet). Negative for rash. Neurological: Negative for dizziness, syncope, weakness, light-headedness and headaches. Hematological: Negative for adenopathy. Does not bruise/bleed easily. Psychiatric/Behavioral: Positive for dysphoric mood. Negative for confusion, decreased concentration and sleep disturbance. The patient is nervous/anxious. PAIN: HISTORY OF CHRONIC PAIN OR CURRENTLY BEING TREATED FOR A CHRONIC PAIN CONDITION: Yes, CONDITION: Spinal stenosis, neuropathy TREATMENT INCLUDES(D) CONTROLLED SUBSTANCES/SCHEDULED MEDICATIONS: No PAIN PANEL/TOXICOLOGY AVAILABLE: No OARRS: Yes, reviewed ALLERGIES Allergen Reactions Latex Rash insulin needles, DISPOSABLE, (PEN NEEDLE) 31 gauge x 5/16" 1 Each four times daily. alcohol swabs Apply 1 application to affected area four times daily. atorvastatin (LIPITOR) 40 mg tablet Take 1 tablet by mouth once daily. lisinopril (ZESTRIL, PRINIVIL) 20 mg tablet Take 1 tablet by mouth once daily. insulin lispro (HUMALOG KWIKPEN INSULIN) 100 unit/mL Inject 30 Units subcutaneously three times daily before meals. blood sugar diagnostic test strip 1 Strip three times daily with meals. Use as instructed Lancets (ACCU-CHEK FASTCLIX LANCET DRUM) lancets 1 Each three times daily with meals. Use as instructed aspirin 81 mg chewable tablet Take 81 mg by mouth. meloxicam (MOBIC) 15 mg tablet Take 15 mg by mouth. gabapentin (NEURONTIN) 600 mg tablet Take 1 tablet by mouth twice daily for 30 days. DULoxetine (CYMBALTA) 60 mg capsule Take 1 capsule by mouth once daily. glimepiride (AMARYL) 2 mg tablet Take 1 tablet by mouth twice daily with meals. insulin glargine (LANTUS SOLOSTAR U-100 INSULIN) 100 unit/mL (3 mL) Inject 55 Units subcutaneously daily at bedtime. liraglutide (VICTOZA) 0.6 mg/ 0.1 ml subcutaneous pen injector Inject 1.2 mg subcutaneously once daily. metoprolol tartrate, short acting, (LOPRESSOR) 25 mg tablet Take 1 tablet by mouth twice daily. pantoprazole DR (PROTONIX) 40 mg tablet Take 1 tablet by mouth once daily. albuterol HFA (PROAIR HFA) 90 mcg/actuation inhaler Inhale 2 Puffs as instructed every 4 hours as needed for wheezing/shortness of breath. History reviewed. No pertinent past medical history. PAST SURGICAL HISTORY Procedure Laterality Date BACK SURGERY HX FAMILY HISTORY Problem Relation Age of Onset Diabetes Brother Last 3 Encounter BP Readings: Date: BP: 12/10/2021 146/84 11/11/2021 160/80 BP 132/82 Pulse 94 Temp (Src) 98.4 (Oral) Ht 5' 4.016" (1.63m) Wt 229 lb (103.9kg) SpO2 98% BMI 39.29 kg/(m^2). Physical Exam Vitals and nursing note reviewed. Constitutional: Appearance: She is obese. HENT: Head: Normocephalic. Right Ear: Tympanic membrane, ear canal and external ear normal. Left Ear: Tympanic membrane, ear canal and external ear normal. Nose: Nose normal. Mouth/Throat: Lips: [place]. Mouth: Mucous membranes are moist. No oral lesions. Dentition: Abnormal dentition. Pharynx: Oropharynx is clear. Eyes: General: Vision grossly intact. Conjunctiva/sclera: Conjunctivae normal. Pupils: Pupils are equal, round, and reactive to light. Neck: Thyroid: No thyroid mass or thyromegaly. Cardiovascular: Rate and Rhythm: Normal rate and regular rhythm. Pulses: Dorsalis pedis pulses are 1+ on the right side and 1+ on the left side. Posterior tibial pulses are 1+ on the right side and 1+ on the left side. Heart sounds: Normal heart sounds, S1 normal and S2 normal. No murmur heard. Pulmonary: Effort: Pulmonary effort is normal. No respiratory distress. Breath sounds: Normal breath sounds and air entry. Abdominal: General: Bowel sounds are normal. Palpations: Abdomen is soft. There is no hepatomegaly or splenomegaly. Tenderness: There is no abdominal tenderness. Musculoskeletal: Cervical back: Normal range of motion and neck supple. Right lower le+ Edema present. Left lower le+ Edema present. Right foot: Bunion present. Left foot: Bunion present. Feet: Right foot: Skin integrity: Callus and dry skin present. No skin breakdown or erythema. Toenail Condition: Right toenails are abnormally thick. Left foot: Skin integrity: Callus and dry skin present. No skin breakdown or erythema. Toenail Condition: Left toenails are abnormally thick. Comments: Bilateral feet are reddish-purple, cap refill < 3 secs Skin: General: Skin is warm and dry. Neurological: General: No focal deficit present. Mental Status: She is alert and oriented to person, place, and time. Cranial Nerves: Cranial nerves are intact. Motor: Motor function is intact. Psychiatric: Mood and Affect: Mood normal. Speech: Speech is tangential. Behavior: Behavior normal. Behavior is cooperative. Thought Content: Thought content normal. Cognition and Memory: Cognition normal. Judgment: Judgment normal. Visit Diagnoses (Z00.00) Well adult exam (primary encounter diagnosis) (Z11.59) Special screening examination for viral disease (E66.9) Obesity, Class II, BMI 35-39.9 ASSESSMENT/PLAN: 1. Well adult exam - ICD9: V70.0, ICD10: Z00.00 (primary diagnosis) - Needs to complete labs that were placed at last visit in Oct - Counseled on healthy diet and regular exercise - Calcium intake with supplements or by diet of 1000 mg/day for under 50, 0985-3575 mg/day for 50+ - Discussed need and benefit for weight loss. BMI 39.29 kg/(m^2) - Not due for colonoscopy until 2026 - Mammogram ordered - exam recommended once yearly. Order placed at last visit but she needs to schedule an appointment. - Depression screening tool completed and reviewed with patient. Based on score and interview, patient is not at risk for depression and recommended no further intervention at this time. - Follow up for annual exam in one year 2. Special screening examination for viral disease - ICD9: V73.99, ICD10: Z11.59 - HEP C AB IA W/CONF SCRN 3. Obesity, Class II, BMI 35-39.9 - ICD9: 278.00, ICD10: E66.9 Stable - Behavioral intervention Discussed health maintenance, including regular aerobic exercise, low fat diet, and periodic exams. Return for Needs Pap in February. Arianna Rosales APRN.JOVANA documented in this encounter [facility] 11-11-2021 Miscellaneous Notes Called Ms Ole Arias to schedule for a consultation . Unable to leave voice mail due to the fact that it is not set up. Greta Gonzalez documented in this encounter [facility] 06-17-2021 Miscellaneous Notes Associated Problem(s): Fibromyalgia I discussed the side potential side effects of gabapentin to include mental slowing, confusion, sedation, fatigue, among others. I suggested that you do not make important decisions while taking this medicine or operate a motor vehicle or heavy machinery. The medicine can worsen the effects of alcohol, therefore alcohol should be avoided. This medicine is potentially addicting and habit-forming and should be taken only as directed, under the supervision of your primary care provider. Associated Problem(s): Hyperlipidemia You are doing well on Lipitor, please continue to take medication as ordered. Please contact the office if you develop any muscle or joint pain, as you currently deny all side effects related to statin medications. Associated Problem(s): Hypertension As discussed within your appointment, your blood pressure is 143/93. I would like you to continue to take medications as ordered, and increase activity as tolerated (goal is 150 minutes of cardiovascular activity weekly), I would also like you to reduce salt intake as this can cause fluid retention, and eat a heart healthy diet. Continue to monitor blood pressure at home in the morning upon awakening and in the evening prior to going to bed. Bring blood pressure log and cuff to your next visit. Your goal blood pressure is to be between 90/60 - 140/90. Associated Problem(s): Uncontrolled type 2 diabetes mellitus (HCC) Please contact endocrinology to re-establish care. I have ordered blood work for you to have completed. Please have this completed at your earliest convenience. This blood work will need to be completed while fasting. This means nothing to eat or drink for 10-12 hours prior to having it drawn. You can however, drink water and take medications as ordered during this time. We will contact you with the results when they return to the office. Associated Problem(s): Gastroesophageal reflux disease As discussed within your appointment today, you are doing well on Protonix. I would like you to continue to take your medication(s) as ordered. If medication refills are needed, they have been sent to your pharmacy. documented in this encounter [facility] 06-03-2021 Instructions Marianela Fowler CNP - 06/03/2021 1:34 PM EDT Images from the original note were not included. Learning About High Cholesterol What is high cholesterol? High cholesterol means that you have too much cholesterol in your blood. Cholesterol is a type of fat. It's needed for many body functions, such as making new cells. Cholesterol is made by your body. It also comes from food you eat. Having high cholesterol can lead to the buildup of plaque in artery simms. This can increase your risk of heart attack and stroke. When your doctor talks about high cholesterol levels, your doctor is talking about your total cholesterol and LDL cholesterol (the "bad" cholesterol) levels. Your doctor may also speak about HDL (the "good" cholesterol) levels. High HDL is linked with a lower risk for coronary artery disease, heart attack, and stroke. Your cholesterol levels help your doctor find out your risk for having a heart attack or stroke. How can you help prevent high cholesterol? A heart-healthy lifestyle can help you prevent high cholesterol and lower your risk for a heart attack and stroke. Eat heart-healthy foods. ? Eat fruits, vegetables, whole grains, beans, and other high-fiber foods. ? Eat lean proteins, such as seafood, lean meats, beans, nuts, and soy products. ? Eat healthy fats, such as canola and olive oil. ? Choose foods that are low in saturated fat. ? Limit sodium and alcohol. ? Limit drinks and foods with added sugar. Be active. Try to do moderate activity at least 2 hours a week. Or try vigorous activity at least 1 hours a week. You may want to walk or try other activities, such as running, swimming, cycling, or playing tennis or team sports. Stay at a healthy weight. Lose weight if you need to. Don't smoke. If you need help quitting, talk to your doctor about stop-smoking programs and medicines. These can increase your chances of quitting for good. How is high cholesterol treated? The goal of treatment is to reduce your chances of having a heart attack or stroke. The goal is not to lower your cholesterol numbers only. Have a heart-healthy lifestyle. This includes eating healthy foods, not smoking, losing weight, and being more active. You may choose to take medicine. Follow-up care is a tran part of your treatment and safety. Be sure to make and go to all appointments, and call your doctor if you are having problems. It's also a good idea to know your test results and keep a list of the medicines you take. Where can you learn more? Log into your personal health record on [email or web address] and enter Q621 in the "Education" box to learn more about "Learning About High Cholesterol." Current as of: January 10, 2021 Content Version: 13.0 [employer]. Care instructions adapted under license by your healthcare professional. If you have questions about a medical condition or this instruction, always ask your healthcare professional. [employer] disclaims any warranty or liability for your use of this information. High Blood Pressure: Care Instructions Overview It's normal for blood pressure to go up and down throughout the day. But if it stays up, you have high blood pressure. Another name for high blood pressure is hypertension. Despite what a lot of people think, high blood pressure usually doesn't cause headaches or make you feel dizzy or lightheaded. It usually has no symptoms. But it does increase your risk of stroke, heart attack, and other problems. You and your doctor will talk about your risks of these problems based on your blood pressure. Your doctor will give you a goal for your blood pressure. Your goal will be based on your health and your age. Lifestyle changes, such as eating healthy and being active, are always important to help lower blood pressure. You might also take medicine to reach your blood pressure goal. Follow-up care is a tran part of your treatment and safety. Be sure to make and go to all appointments, and call your doctor if you are having problems. It's also a good idea to know your test results and keep a list of the medicines you take. How can you care for yourself at home? Medical treatment If you stop taking your medicine, your blood pressure will go back up. You may take one or more types of medicine to lower your blood pressure. Be safe with medicines. Take your medicine exactly as prescribed. Call your doctor if you think you are having a problem with your medicine. Talk to your doctor before you start taking aspirin every day. Aspirin can help certain people lower their risk of a heart attack or stroke. But taking aspirin isn't right for everyone, because it can cause serious bleeding. See your doctor regularly. You may need to see the doctor more often at first or until your blood pressure comes down. If you are taking blood pressure medicine, talk to your doctor before you take decongestants or anti-inflammatory medicine, such as ibuprofen. Some of these medicines can raise blood pressure. Learn how to check your blood pressure at home. Lifestyle changes Stay at a healthy weight. This is especially important if you put on weight around the waist. Losing even 10 pounds can help you lower your blood pressure. If your doctor recommends it, get more exercise. Walking is a good choice. Bit by bit, increase the amount you walk every day. Try for at least 30 minutes on most days of the week. You also may want to swim, bike, or do other activities. Avoid or limit alcohol. Talk to your doctor about whether you can drink any alcohol. Try to limit how much sodium you eat to less than 2,300 milligrams (mg) a day. Your doctor may ask you to try to eat less than 1,500 mg a day. Eat plenty of fruits (such as bananas and oranges), vegetables, legumes, whole grains, and low-fat dairy products. Lower the amount of saturated fat in your diet. Saturated fat is found in animal products such as milk, cheese, and meat. Limiting these foods may help you lose weight and also lower your risk for heart disease. Do not smoke. Smoking increases your risk for heart attack and stroke. If you need help quitting, talk to your doctor about stop-smoking programs and medicines. These can increase your chances of quitting for good. When should you call for help? Call 911 anytime you think you may need emergency care. This may mean having symptoms that suggest that your blood pressure is causing a serious heart or blood vessel problem. Your blood pressure may be over 180/120. For example, call 911 if: You have symptoms of a heart attack. These may include: ? Chest pain or pressure, or a strange feeling in the chest. ? Sweating. ? Shortness of breath. ? Nausea or vomiting. ? Pain, pressure, or a strange feeling in the back, neck, jaw, or upper belly or in one or both shoulders or arms. ? Lightheadedness or sudden weakness. ? A fast or irregular heartbeat. You have symptoms of a stroke. These may include: ? Sudden numbness, tingling, weakness, or loss of movement in your face, arm, or leg, especially on only one side of your body. ? Sudden vision changes. ? Sudden trouble speaking. ? Sudden confusion or trouble understanding simple statements. ? Sudden problems with walking or balance. ? A sudden, severe headache that is different from past headaches. You have severe back or belly pain. Do not wait until your blood pressure comes down on its own. Get help right away. Call your doctor now or seek immediate care if: Your blood pressure is much higher than normal (such as 180/120 or higher), but you don't have symptoms. You think high blood pressure is causing symptoms, such as: ? Severe headache. ? Blurry vision. Watch closely for changes in your health, and be sure to contact your doctor if: Your blood pressure measures higher than your doctor recommends at least 2 times. That means the top number is higher or the bottom number is higher, or both. You think you may be having side effects from your blood pressure medicine. Where can you learn more? Log into your personal health record on [email or web address] and enter X567 in the "Education" box to learn more about "High Blood Pressure: Care Instructions." Current as of: January 10, 2021 Content Version: 13.0 [employer]. Care instructions adapted under license by your healthcare professional. If you have questions about a medical condition or this instruction, always ask your healthcare professional. [employer] disclaims any warranty or liability for your use of this information. documented in this encounter [facility] 06-03-2021 History of Present illness Narrative OFFICE VISIT PROGRESS NOTE Juana Handy is a 56 y.o. female with a past medical history of Patient Active Problem List Diagnosis Lumbar degenerative disc disease Herniated intervertebral disc of lumbar spine Spinal stenosis of lumbar region without neurogenic claudication Uncontrolled type 2 diabetes mellitus (HCC) Neuropathy involving both lower extremities Type 2 diabetes mellitus without complication, with long-term current use of insulin ([facility]) H/O spinal fusion Hypertension Hyperlipidemia Fibromyalgia Class 3 severe obesity with serious comorbidity and body mass index (BMI) of 45.0 to 49.9 in adult (HCC) Degenerative disc disease, cervical Gastroesophageal reflux disease Fibromyalgia Chronic thoracic spine pain Chronic bilateral low back pain Mixed anxiety depressive disorder Intractable vomiting Anxiety Pulmonary nodule, left Preoperative examination, unspecified S/P cervical spinal fusion Painful mouth who presents to the office today for a follow up on chronic conditions. Patient is doing well and denies complaints at this time. Hypertension This is a chronic problem. The current episode started more than 1 year ago. The problem has been waxing and waning since onset. The problem is controlled. Associated symptoms include anxiety and neck pain (chornic ). Pertinent negatives include no chest pain, headaches, malaise/fatigue, palpitations, peripheral edema, PND, shortness of breath or sweats. There are no associated agents to hypertension. Risk factors for coronary artery disease include family history, dyslipidemia, obesity, post-menopausal state, stress, sedentary lifestyle, smoking/tobacco exposure and diabetes mellitus. The current treatment provides significant improvement. Compliance problems include psychosocial issues, exercise and diet. There is no history of chronic renal disease. Hyperlipidemia This is a chronic problem. The current episode started more than 1 year ago. Recent lipid tests were reviewed and are variable. Exacerbating diseases include diabetes and obesity. She has no history of chronic renal disease, hypothyroidism, liver disease or nephrotic syndrome. Pertinent negatives include no chest pain, focal sensory loss, focal weakness, leg pain, myalgias or shortness of breath. Current antihyperlipidemic treatment includes statins. The current treatment provides significant improvement of lipids. Gastroesophageal Reflux She reports no chest pain, no coughing, no early satiety, no heartburn, no sore throat or no tooth decay. This is a chronic problem. The current episode started more than 1 year ago. The problem occurs rarely. The problem has been waxing and waning. The symptoms are aggravated by certain foods, stress and bending. Pertinent negatives include no anemia, fatigue, melena, muscle weakness, orthopnea or weight loss. Risk factors include obesity. She has tried a PPI for the symptoms. The treatment provided significant relief. Fibromyalgia: Chronic problem, moderately controlled with gabapentin. Patient does have chronic pain due to multiple cervical and lumbar surgical procedures. Patient denies use of narcotics or illegal drugs while using this medication. Patient states that this medication does not make her drowsy. Chronic dental pain: ongoing worsening problem, patient cannot afford to have teeth pulled at this time. States that she has several broke and infected teeth Patient has been asked to re-establish with Endocrinology since moving back to [place]. Patient verbalized understanding. Health Maintenance Topic Date Due Wellness Visit Never done Pneumococcal Vaccine: Ped or At-Risk (1 of 2 - PPSV23) Never done Ophthalmology Exam Never done Zoster Vaccines (1 of 2) Never done Pap Smear 04/28/2020 Mammogram 01/26/2021 Sequential Influenza Vaccine (1) 05/15/2021 Urine Microalbumin 07/07/2021 Tetanus: Every 10yrs 07/11/2021 A1C 07/12/2021 Foot Exam 01/16/2022 Colorectal Cancer Screening 05/07/2027 COVID-19 Vaccine Completed Hepatitis C Screening Discontinued HIV Screening Discontinued The following portions of the patient's history were reviewed and updated as appropriate: allergies, current medications and problem list. Family History Problem Relation Age of Onset Lung cancer Father Heart failure Father Heart disease Father Diabetes Brother Heart disease Brother Bone cancer Maternal Grandmother Heart failure Maternal Grandmother Stroke Maternal Grandmother Cancer Half-Sister unknown cancer (mother in common) Heart disease Sister Diabetes Sister Mental illness Daughter Cancer Paternal Grandmother Social History Socioeconomic History Marital status: Spouse name: Not on file Number of children: Not on file Years of education: Not on file Highest education level: Not on file Occupational History Not on file Tobacco Use Smoking status: Never Smoker Smokeless tobacco: Never Used Vaping Use Vaping Use: Never used Substance and Sexual Activity Alcohol use: No Drug use: No Sexual activity: Not Currently Other Topics Concern Not on file Social History Narrative Not on file Social Determinants of Health Financial Resource Strain: Medium Risk Difficulty of Paying Living Expenses: Somewhat hard Food Insecurity: Food Insecurity Present Worried About Running Out of Food in the Last Year: Sometimes true Ran Out of Food in the Last Year: Sometimes true Transportation Needs: Unmet Transportation Needs Lack of Transportation (Medical): No Lack of Transportation (Non-Medical): Yes Physical Activity: Days of Exercise per Week: Not on file Minutes of Exercise per Session: Not on file Stress: Feeling of Stress : Not on file Social Connections: Unknown Frequency of Communication with Friends and Family: Three times a week Frequency of Social Gatherings with Friends and Family: Once a week Attends Zoroastrian Services: Not on file Active Member of Clubs or Organizations: Not on file Attends Club or Organization Meetings: Not on file Marital Status: Not on file Housing Stability: Unable to Pay for Housing in the Last Year: Not on file Number of Places Lived in the Last Year: Not on file Unstable Housing in the Last Year: Not on file Past Surgical History: Procedure Laterality Date BONE MARROW BIOPSY W/ ASPIRATION 06/04/2018 ........Dr. Pat BREAST BIOPSY Left 10/12/2017 Stereo-proliferative fibrocystic changes and associated microcalcifications, focal pseudoangiomatous stromal hyperplasia CATARACT EXTRACTION, BILATERAL COLONOSCOPY 37 years old..Diverticulitis COLONOSCOPY 05/07/2017 diverticulosis, signle polyp in sigmoid, internal hermorrhoids...Dimitris DILATION AND CURETTAGE OF UTERUS for utreine bleeding LAMINECTOMY DISC ANTERIOR CERVICAL W/ FUSION MULTI LEVEL Bilateral 06/07/2020 Procedure: Anterior Cervical Discectomy and Fusion, C4-5 and C5-6; Surgeon: Jose Gallagher MD; Location: Main OR; Service: Neurological LUMBAR FUSION 10/19/2017 Allergies Allergen Reactions Latex Rash Patient's Medications New Prescriptions No medications on file Previous Medications ACCU-CHEK GUIDE ME GLUCOSE MTR MISC USE DIRECTED ALBUTEROL (VENTOLIN HFA) 90 MCG/ACTUATION INHALER Inhale 2 (two) puffs every 6 (six) hours as needed for wheezing . ALCOHOL PREP PADS PADM Use as directed 4x daily. DX code E11.65 . ASPIRIN 81 MG EC TABLET Take 81 mg by mouth daily. BLOOD PRESSURE MONITOR (BLOOD PRESSURE KIT) KIT To monitor blood pressure twice daily . BLOOD SUGAR DIAGNOSTIC (GLUCOSE BLOOD) STRIPS To check blood sugar four times daily E11.65 . GLIMEPIRIDE (AMARYL) 2 MG TABLET Take 1 tablet PO BID . INSULIN ASPART U-100 (NOVOLOG FLEXPEN U-100 INSULIN) 100 UNIT/ML (3 ML) INPN Inject 30 (thirty) Units under the skin 3 (three) times a day before meals . INSULIN GLARGINE (LANTUS SOLOSTAR U-100 INSULIN) 100 UNIT/ML (3 ML) INPN Take 55units every evening at bedtime . INSULIN SYRINGE-NEEDLE U-100 (SURE COMFORT INSULIN SYRINGE) 0.3 ML 31 GAUGE X 5/16" SYRG Use as directed 4 times daily, Dx E11.65 . LANCETS (ACCU-CHEK FASTCLIX LANCET DRUM) [facility] D[facility] code E11.65 Use as directed 4 times daily . PEN NEEDLE, DIABETIC 31 GAUGE X 5/16" NDLE Use as directed for insulin adm. Insulin and Victoza . VICTOZA 2-PUMA 0.6 MG/0.1 ML (18 MG/3 ML) PEN INJECT 1.2 MG SUBCUTANEOUSLY DAILY Modified Medications Modified Medication Previous Medication ATORVASTATIN (LIPITOR) 40 MG TABLET atorvastatin (LIPITOR) 40 MG tablet Take 1 (one) tablet (40 mg total) by mouth nightly . TAKE ONE TABLET BY MOUTH AT BEDTIME DULOXETINE (CYMBALTA) 60 MG CAPSULE DULoxetine (CYMBALTA) 60 MG capsule Take 1 (one) capsule (60 mg total) by mouth daily . Take 1 (one) capsule (60 mg total) by mouth daily . GABAPENTIN (NEURONTIN) 600 MG TABLET gabapentin (NEURONTIN) 600 MG tablet Take 1 (one) tablet (600 mg total) by mouth 3 (three) times a day . Take 1 (one) tablet (600 mg total) by mouth 3 (three) times a day . LISINOPRIL (PRINIVIL,ZESTRIL) 20 MG TABLET lisinopriL (PRINIVIL,ZESTRIL) 20 MG tablet Take 1 (one) tablet (20 mg total) by mouth daily . Take 1 (one) tablet (20 mg total) by mouth daily . MELOXICAM (MOBIC) 15 MG TABLET meloxicam (MOBIC) 15 MG tablet Take 1 (one) tablet (15 mg total) by mouth daily . TAKE ONE TABLET BY MOUTH ONCE DAILY METOPROLOL TARTRATE (LOPRESSOR) 25 MG TABLET metoprolol tartrate (LOPRESSOR) 25 MG tablet Take 1 (one) tablet (25 mg total) by mouth 2 (two) times a day . Take 1 (one) tablet (25 mg total) by mouth 2 (two) times a day . PANTOPRAZOLE (PROTONIX) 40 MG TABLET pantoprazole (PROTONIX) 40 MG tablet Take 1 (one) tablet (40 mg total) by mouth daily . TAKE ONE TABLET BY MOUTH ONCE DAILY Discontinued Medications LIDOCAINE (LIDOCAINE) 2 % SOLN Applied on teeth were swish and spit every few hours may use cotton ball also for pain . Review of Systems Review of Systems Constitutional: Negative for activity change, appetite change, fatigue, malaise/fatigue and weight loss. HENT: Negative for sore throat. Respiratory: Negative for cough and shortness of breath. Cardiovascular: Negative for chest pain, palpitations and PND. Gastrointestinal: Negative for heartburn and melena. Musculoskeletal: Positive for neck pain (chornic ). Negative for myalgias and muscle weakness. Neurological: Negative for dizziness, focal weakness, facial asymmetry, light-headedness and headaches. Psychiatric/Behavioral: Negative for agitation. The patient is not nervous/anxious. Vitals: 06/03/21 1325 BP: (!) 143/93 BP Location: Right arm Patient Position: Sitting BP Cuff Size: X-large Adult Pulse: 91 Resp: 18 Temp: 98.1 F (36.7 C) TempSrc: Temporal SpO2: 97% Weight: 103.2 kg (227 lb 8 oz) Height: 5' 4" Body mass index is 39.05 kg/m . Physical Exam Physical Exam Vitals reviewed. Constitutional: Appearance: Normal appearance. She is well-developed. HENT: Head: Normocephalic. Right Ear: External ear normal. Left Ear: External ear normal. Nose: Nose normal. Eyes: General: Lids are normal. Cardiovascular: Rate and Rhythm: Normal rate and regular rhythm. Heart sounds: Normal heart sounds. Pulmonary: Effort: Pulmonary effort is normal. Breath sounds: Normal breath sounds. Musculoskeletal: General: Normal range of motion. Comments: Ambulates with assistance of a cane. Skin: General: Skin is warm and dry. Neurological: General: No focal deficit present. Mental Status: She is alert and oriented to person, place, and time. Coordination: Coordination is intact. Gait: Gait is intact. Psychiatric: Attention and Perception: Attention normal. Mood and Affect: Mood normal. Speech: Speech normal. Behavior: Behavior normal. Behavior is cooperative. Thought Content: Thought content normal. Cognition and Memory: Cognition normal. Judgment: Judgment normal. OARRS/NARxCHECK Report Received and Assessed: 06/03/2021 Date controlled substance agreement signed: 08/22/2019 Date of last drug screen: 08/22/2019 Functional Assessment: Last narcotic script filled 06/11/2020 The 10-year ASCVD risk score (Tlaatjudy SOSA Jr., et al., 2013) is: 8.5% Values used to calculate the score: Age: 56 years Sex: Female Is Non- : No Diabetic: Yes Tobacco smoker: No Systolic Blood Pressure: 143 mmHg Is BP treated: Yes HDL Cholesterol: 46 mg/dL Total Cholesterol: 208 mg/dL Assessment/Plan Problem List Items Addressed This Visit Digestive Gastroesophageal reflux disease - Primary As discussed within your appointment today, you are doing well on Protonix. I would like you to continue to take your medication(s) as ordered. If medication refills are needed, they have been sent to your pharmacy. Relevant Medications pantoprazole (PROTONIX) 40 MG tablet Endocrine Uncontrolled type 2 diabetes mellitus (HCC) Please contact endocrinology to re-establish care. I have ordered blood work for you to have completed. Please have this completed at your earliest convenience. This blood work will need to be completed while fasting. This means nothing to eat or drink for 10-12 hours prior to having it drawn. You can however, drink water and take medications as ordered during this time. We will contact you with the results when they return to the office. Relevant Orders Microalbumin, Urine, Random Hemoglobin A1c Cardiovascular and Mediastinum Hypertension As discussed within your appointment, your blood pressure is 143/93. I would like you to continue to take medications as ordered, and increase activity as tolerated (goal is 150 minutes of cardiovascular activity weekly), I would also like you to reduce salt intake as this can cause fluid retention, and eat a heart healthy diet. Continue to monitor blood pressure at home in the morning upon awakening and in the evening prior to going to bed. Bring blood pressure log and cuff to your next visit. Your goal blood pressure is to be between 90/60 - 140/90. Relevant Medications metoprolol tartrate (LOPRESSOR) 25 MG tablet lisinopriL (PRINIVIL,ZESTRIL) 20 MG tablet Other Relevant Orders Comprehensive Metabolic Panel CBC and Differential Lipid Panel TSH T4, Free Other Hyperlipidemia You are doing well on Lipitor, please continue to take medication as ordered. Please contact the office if you develop any muscle or joint pain, as you currently deny all side effects related to statin medications. Relevant Medications atorvastatin (LIPITOR) 40 MG tablet Other Relevant Orders TSH T4, Free Fibromyalgia I discussed the side potential side effects of gabapentin to include mental slowing, confusion, sedation, fatigue, among others. I suggested that you do not make important decisions while taking this medicine or operate a motor vehicle or heavy machinery. The medicine can worsen the effects of alcohol, therefore alcohol should be avoided. This medicine is potentially addicting and habit-forming and should be taken only as directed, under the supervision of your primary care provider. Relevant Medications gabapentin (NEURONTIN) 600 MG tablet DULoxetine (CYMBALTA) 60 MG capsule meloxicam (MOBIC) 15 MG tablet Goals None For any new medications prescribed today, patient was educated about indications for the medication, how to take the medication and potential side effects of the medications. Please note: Portions of this chart may have been created with [employer] voice recognition software. Occasional wrong-word or "sound-like" substitutions may have occurred due to inherent limitations of the voice recognition software. Please read the chart carefully and recognize, using context, where the substitutions have occurred. documented in this encounter [facility] 02-01-2021 History of Present illness Narrative [facility] Progress Note Patient Name: Juana Handy Date of Service: : 1965 Impression: Juana Handy is a 55 y.o. year old female with: 1. Cervical degenerative disc disease causing central and foraminal stenosis at C4-5 and C5-6 2. Status post C4-5 and C5-6 ACDF 3. Fibromyalgia 4. Bilateral trigger points 5. Right SI joint dysfuction 6. Chronic bilateral low back pain without radiculopathy 7. Diabetic neuropathy 8. New onset of dorsiflexion weakness Plan: - Discussed the option of trigger point injections - will hold off at this time as the patient has not had correction relief with previous injections Patient may call if she would like to attempt again in the future - Recommended MRI lumbar spine for the recent onset of dorsiflexion weakness Patient would like to hold off on this at this time Advised the patient that if the weakness is related to nerve compression, delay in care could cause permanent damage Patient verbalized understanding, again repeating that she would like to hold off at this time Advised to present to the ED with any acute changes in her strength, bowel function, bladder function, or saddle anesthesia - patient verbalized understanding - Will plan for follow-up as needed - Nursing notes reviewed Time statement: A total of 42 minutes were spent on this encounter, which includes the time reviewing the patient's diagnostic tests, seeing the patient, speaking with nursing staff, and documenting in the record. Migel Browning, MS, MPAP, PA-C [facility] Office: Chief Complaint: Back Pain (Patient states she has a lot of tightness in her neck. She is also having pain and tightness in the shoulder blade area. ) HPI: Juana Handy is a 55 y.o. year old female with cervical degenerative disc disease causing central and foraminal stenosis at C4-5 and C5-6 who is now status post C4-5 and C5-6 ACDF, who presents for follow-up evaluation. History is obtained from the patient and chart review. The patient reports that she has had recurrence of her bilateral trapezial trigger points. She notes that again, she received a few days of relief of her pain (approximately 30% relief), but does note continued relief of her trapezial "pressure" (approximately 25-30%). Unfortunately, due to her brittle diabetes, she cannot receive steroids. She notes that during her recent consult with Dr. Duffy, china painter, this comment was echoed, stating that she cannot undergo any facet or epidural steroid injections until her diabetes was better controlled (shooting for A1c <9, currently 11.2). She states that she continues to have significant neuropathy to her bilateral feet, which is worse on the right than on the left. She also notes increased back pain with ambulation, which is overall unchanged. She does note that she has some degree of ankle weakness, especially with any distance, stating that she foot can drag. She states that this has been present over the last month or so and is not associated with any increase in her back pain or new radicular symptoms. No other complaints at this time. Review of Systems: Review of Systems Constitutional: Positive for appetite change. Negative for chills, fatigue and fever. HENT: Positive for dental problem and facial swelling. Negative for congestion, hearing loss, rhinorrhea and sore throat. Eyes: Negative for pain and visual disturbance. Respiratory: Positive for apnea. Negative for cough and shortness of breath. Cardiovascular: Positive for leg swelling. Negative for chest pain. Gastrointestinal: Negative for abdominal pain, constipation, diarrhea, nausea and vomiting. Endocrine: Negative. Genitourinary: Negative for decreased urine volume, dysuria, hematuria and urgency. Musculoskeletal: Positive for arthralgias, back pain, joint swelling, neck pain and neck stiffness. Negative for gait problem. Skin: Negative for rash and wound. Allergic/Immunologic: Negative. Neurological: Positive for numbness. Negative for dizziness, weakness and headaches. Hematological: Negative for adenopathy. Does not bruise/bleed easily. Psychiatric/Behavioral: Negative for dysphoric mood. The patient is not nervous/anxious. Physical Examination: PACU Vitals 02/01/21 1027 BP: (!) 141/84 Pulse: 78 Resp: 16 SpO2: 98% PainSc: 9 PainLoc: Back General: Healthy, well-appearing 55 y.o. female, in NAD HENT: Nares patent with no drainage, hearing grossly intact to voice Neuro: Awake, alert; face symmetric, speech fluent Neck: Supple, full lateral rotation; negative for posterior midline cervical spine tenderness; positive for bilateral trapezius trigger points Chest: Chest rise symmetric, respirations non-labored Skin: Warm and dry; anterior cervical incision well healed; small scabs over the arms and torso MSK: - Positive for right SI joint tenderness; no left SI joint tenderness Muscle Group Right Left Biceps 5 5 Triceps 5 5 Deltoid 5 5 Publication Specialist 5 5 Hip Flexion 5 5 Knee Flexion 5 5 Knee Extension 5 5 Dorsiflexion 4 5 Plantar Flexion 5 5 Sensation intact to light touch to bilateral upper and lower extremities with diminished sensation inferior to the mid herring and distal to the bilateral elbows Ambulates without difficulty. documented in this encounter [facility] 01-18-2021 History of Present illness Narrative Patient ID: Juana Handy is a 55 y.o. female 1965 Subjective: Juana Handy presents for follow-up of Type 2 diabetes Patient has had diabetes for 4 years. Diagnosed in 2015 Patient has taken Insulin for 2 year. Complications from her diabetes includes peripheral neuropathy. Patient last seen in 09/2020 at which time her hemoglobin A1c was 10.1%. She again fails to bring readings to her appointment today. She states her blood sugars are highly variable, but mostly >200. She notes a very stressful home situation as one of her household members suffers from significant mental illness. Her hemoglobin A1c has increased to 11.5%. Currently Taking: Novolog 0-26//26u with meals (Typically skips breakfast) Lantus 50-60 units QHS. Victoza 1.2 mg daily Glimepiride 2 mg twice a day Outpatient Medications Marked as Taking for the 01/16/21 encounter (Office Visit) with Farhad Palmer PA-C: Accu-Chek Guide Me Glucose Mtr [facility], USE DIRECTED aspirin 81 MG EC tablet, Take 81 mg by mouth daily. atorvastatin (LIPITOR) 40 MG tablet, TAKE ONE TABLET BY MOUTH AT BEDTIME blood pressure monitor (Blood Pressure Kit) Kit, To monitor blood pressure twice daily . blood sugar diagnostic (glucose blood) strips, To check blood sugar four times daily E11.65 . DULoxetine (CYMBALTA) 60 MG capsule, Take 1 (one) capsule (60 mg total) by mouth daily . gabapentin (NEURONTIN) 600 MG tablet, Take 1 (one) tablet (600 mg total) by mouth 3 (three) times a day . glimepiride (AMARYL) 2 MG tablet, Take 1 tablet PO BID . insulin aspart U-100 (NovoLOG Flexpen U-100 Insulin) 100 unit/mL (3 mL) InPn, Inject 30 (thirty) Units under the skin 3 (three) times a day before meals . insulin glargine (Lantus Solostar U-100 Insulin) 100 unit/mL (3 mL) InPn, Take 55units every evening at bedtime . insulin syringe-needle U-100 (Sure Comfort Insulin Syringe) 0.3 mL 31 gauge x 5/16" Syrg, Use as directed 4 times daily, Dx E11.65 . lancets (Accu-Chek Fastclix Lancet Drum) [facility] [facility] [place], Dg code E11.65 Use as directed 4 times daily . lidocaine (lidocaine) 2 % Soln, Applied on teeth were swish and spit every few hours may use cotton ball also for pain . lisinopriL (PRINIVIL,ZESTRIL) 20 MG tablet, Take 1 (one) tablet (20 mg total) by mouth daily . meloxicam (MOBIC) 15 MG tablet, TAKE ONE TABLET BY MOUTH ONCE DAILY metoprolol tartrate (LOPRESSOR) 25 MG tablet, Take 1 (one) tablet (25 mg total) by mouth 2 (two) times a day . nystatin (MYCOSTATIN) ointment, Apply topically 2 (two) times a day . pantoprazole (PROTONIX) 40 MG tablet, TAKE ONE TABLET BY MOUTH ONCE DAILY pen needle, diabetic 31 gauge x 5/16" Ndle, Use as directed for insulin adm. Insulin and Victoza . Victoza 2-Puma 0.6 mg/0.1 mL (18 mg/3 mL) Pen, INJECT 1.2 MG SUBCUTANEOUSLY DAILY Review of Systems: Review of Systems Constitutional: Positive for appetite change ("I dont' eat as much as I used to"). Negative for fatigue. Eyes: Negative for visual disturbance. Respiratory: Negative for shortness of breath. Cardiovascular: Positive for leg swelling. Negative for chest pain. Gastrointestinal: Negative for abdominal pain, constipation, diarrhea, nausea and vomiting. Endocrine: Negative for polydipsia, polyphagia and polyuria. Musculoskeletal: Positive for back pain (chronic, s/p recent cervical spine surgery [facility]) and gait problem. Negative for arthralgias and myalgias. Skin: Negative for wound. Neurological: Positive for weakness and numbness ("always in feet"). Negative for headaches. Psychiatric/Behavioral: The patient is nervous/anxious. Stressful home situation currently The following portions of the patient's history were reviewed and updated as appropriate: allergies, current medications, past family history, past medical history, past social history, past surgical history and problem list. Objective: BP (!) 163/99 Pulse 66 Ht 5' 4" Wt 102.1 kg (225 lb) BMI 38.62 kg/m Wt Readings from Last 3 Encounters: 01/16/21 102.1 kg (225 lb) 11/21/20 102.4 kg (225 lb 12.8 oz) 11/01/20 105.7 kg (233 lb) Physical Exam: General: alert, appears stated age and cooperative Eyes: conjunctivae/corneas clear. PERRL, EOM's intact. Neck: no adenopathy, supple, symmetrical, trachea midline. Thyroid: No thyromegaly appreciated Lung: clear to auscultation bilaterally Heart: regular rate and rhythm, S1, S2 normal, no murmur, click, rub or gallop Extremities: extremities normal, atraumatic, no cyanosis or edema, uses cane to get around. Feet: Dry skin, Right Foot: warm, good capillary refill, normal DP, reduced sensation at diffuse and superficial bruise proximal to toes Left Foot: warm, good capillary refill, DP reduced left and reduced sensation at throughout. Monofilament exam abnormal, bilateral lower extremities. Neuro: normal without focal findings, mental status, speech normal, alert and oriented x3 and AYO Lab Review Lab Results Component Value Date HGBA1C 11.5 (H) 01/10/2021 Glucose (mg/dL) Date Value 01/10/2021 239 (H) Creatinine (mg/dL) Date Value 01/10/2021 0.82 08/23/2018 0.87 Lab Results Component Value Date CHOL 208 (H) 01/10/2021 TRIG 256 (H) 01/10/2021 HDL 46 01/10/2021 LDLCALC 111 01/10/2021 Lab Results Component Value Date TSH 1.16 01/10/2021 Lab Results Component Value Date WBC 7.87 01/10/2021 HGB 12.7 01/10/2021 HCT 38.2 01/10/2021 MCV 83.4 01/10/2021 PLT 298 01/10/2021 01/10/2021 Hemoglobin A1c 11.5% Creatinine 0.82, estimated GFR 81, K3.6 AST 19, ALT 28 T cholesterol 208, TG 256, HDL 46, LDL 111 TSH 1.16, free T4: 1.1 07/07/2020 Hemoglobin A1c 10.1% Creatinine 0.94 GFR 69 AST 21 ALT 30 TSH 1.51 free T4 1.1 Microalbumin creatinine ratio 10 Cholesterol 190 triglycerides 233 HDL 45 LDL 98 WBC 8.5 hemoglobin 12.5 hematocrit 39.3 platelets 311 03/02/20 Hgb A1c: 13.2% Creat: 0.89; eGFR: 74 AST: 42; ALT: 49 K: 3.9 Tchol: 189; Tri ; HDL: 37 ; LDL: 83 TSH: 1.40 ; FreeT4: 1.2 Microalbumin/creatinine Ratio: 39 01/12/20 Creat: 0.98; eGFR: 66 AST: 47; ALT: 43 K: 4.1 04/28/19 Hemoglobin A1C 9.4% Creatinine 1.00 GFR > 60 Cholesterol 138 Triglycerides 183 HDL 40 LDL 61 12/28/18 HgbA1C 8.1% Date: 08/23/18 Creatinine 0.87, sodium 138, potassium 4.1, estimated GFR greater than 60 AST 22, ALT 29 Total cholesterol 140, triglycerides 200, HDL 41, LDL 59 WBC 9.7, hemoglobin 12.3, hematocrit 37.0, platelet count 332,000 TSH 2.83, FT4--1.0 Microalbumin/creatinine ratio 13 07/20/18 HgbA1c 9.9% 02/24/18 HgbA1c 10.3% Assessment/Plan: Dx: No diagnosis found. Type 2 diabetes, under poor control Patient is currently managed with: Currently taking: Novolog u with meals Lantus 50 units QHS. Victoza 1.2 mg daily Glimepiride 2 mg twice a day Current Hemoglobin A1C= Lab Results Component Value Date HGBA1C 11.5 (H) 01/10/2021 HGBA1C 11.0 (H) 10/09/2020 HGBA1C 10.1 (H) 07/07/2020 Weight trend: is stable Current diet: not following diabetic diet, Current exercise: no regular exercise Current monitoring regimen: home blood tests - 4 times daily None to review Home blood sugar records: Any episodes of hypoglycemia? 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 Will be getting an updated exam done soon Other Ophthalmologic Conditions:S/P Right cataract extraction with IOLI and S/P Left cataract extraction with IOLI Nephropathy: Negative Creatinine 0.94 GFR > 60 07/07/2020 Lab Results Component Value Date CREATININE 0.82 01/10/2021 EXTEGFR >=60 08/23/2018 EXTEGFRAFAME >=60 08/23/2018 Microlbumin/creat ratio: 13 on 08/23/18 Lab Results Component Value Date EXTMICROALBC 13 08/23/2018 Is patient on ROZ inhibitor or angiotensin II receptor dale? yes Lisinopril Peripheral Neuropathy: Positive Reports bilateral numbness and tingling in feet; has numbness in right foot from back.Taking Gabapentin 600mg oral TID, that are filled by her PCP office Autonomic Neuropathy: Negative Hypoglycemia unawareness. Senses low BG at 90 mg/dl. Other: Hyperlipidemia: Negative Currently taking: atorvastatin (Lipitor). 01/02: T cholesterol 208, TG 256, HDL 46, LDL 111 Plan: Dietary modifications were encouraged in addition to taking Statin everyday as prescribed. Patient reports it is hard to get healthy food as she is on a budget with food stamps and household members eat poorly. Lab Results Component Value Date AST 19 01/10/2021 ALT 28 01/10/2021 Lab Results Component Value Date EXTCHOL 140 08/23/2018 EXTTRIG 200 (H) 08/23/2018 EXTHDL 41 08/23/2018 Hypertension: Positive. Currently taking: lisinopril (Prinivil) and metoprolol (Lopressor, Toprol) BP: (!) 163/99 Cardiac: Negative Experiencing chest pain no . Experiencing shortness of breath no History of No history of CAD and ETT normal 03/31 Vascular: Negative edema Feet: Negative ; sores or lesions at this time. Sees Dr. Zuñiga for foot care. Thyroid: Negative Other: Chronic back pain, s/p 2 back surgeries 10/19/17, 05/10/18. L4-L5 fusions. Awaiting to see Pain Specialist at [facility] for steroid back injections. Patient recently underwent surgery through [facility] Neuro[facility] Dr Gallagher , status post C4-5 and C5-6 ACDF, May 2020. Plan: 1. Rx changes: adjust insulin: Novolog insulin: 30 units at breakfast; 30 units at lunch; 30 units at supper Lantus insulin: 60 units at bedtime Glimepiride 2 mg twice daily Increase Victoza 1.8 mg daily Start novolog pen due to ease of use and improved compliance. Patient's insulin was increased as above. Patient warned regarding risks associated with DM out of control including but not limited to: Renal failure Coronary Artery disease Blindness Stroke or CVA I again reiterated that the patient needs to be checking her blood sugars 4 times daily and providing readings to the office so that we may more accurately titrate her insulin doses. 2. Education: Reviewed ABCs of diabetes management (respective goals in parentheses): A1C (7.0-8.0), blood pressure (<130/80), and cholesterol (LDL <100). 3. Compliance at present is estimated to be fair. Efforts to improve compliance (if necessary) will be directed at dietary modifications: carb controlled, no concentrated sugars and regular blood sugar monitorin times daily. 4. Follow up: 1 months 5. Record blood sugar readings as instructed. Call if BG consistently <70 or >250. [phone] Continue to check blood sugar 4 times daily. She has been checking blood glucoses because she is on 4 times daily insulin and assesses her blood glucose before giving insulin dose. She has had some episodes of hypoglycemia. Her insulin doses will be adjusted based on her blood glucoses at her office appointments, when she brings her glucose readings to the office. Prognosis: Good Duration of need: Permanent 6. Bring blood sugar meter to follow up appointment. No orders of the defined types were placed in this encounter. Electronically signed by: Farhad Palmer PA-C, [facility] 01/18/21 7:51 AM documented in this encounter [facility] 01-02-2021 Miscellaneous Notes ----- Message from Ambar Dejesus sent at 01/02/2021 11:50 AM EDT ----- Regarding: rx refill needed as soon as possible thank you Contact: self MEDICATION REFILL REQUEST: PCP: Marianela Fowler, CORPORATE CONSULTANT Patient called 01/02/21 and is requesting a medication refill for gabapentin (NEURONTIN) 600 MG tablet This was confirmed from the current medication list found in the patients chart. Supply Requested: # of days: 90 days Method of receiving: Send to pharmacy Last set of flowsheet rows for OARRS report: OARRS/NARxCHECK Report Received and Assessed: 09/30/2020 Date controlled substance agreement signed: 08/22/2019 Date of last drug screen: 08/22/2019 Functional Assessment: Last narcotic script filled 06/11/2020 Will this refill be sent to the preferred pharmacy listed below? Yes Preferred pharmacies: [place] [id number] [facility] [id number] Pt Call Back Number Patient call back message sent to the primary care clinical pool. Ambar Dejesus ----- Message from Ambar Dejesus sent at 01/02/2021 11:51 AM EDT ----- Regarding: rx update at pharamcy needed Contact: self Pt stated today that she in no longer taking busPIRone (BUSPAR) 10 MG tablet metoprolol succinate (TOPROL-XL) 25 MG 24 hr Pharmacy continues to fill these RX and delivers them to her documented in this encounter [facility] 01-01-2021 History of Present illness Narrative Associated Order(s): Trigger Point Injection, 1 or 2 Post-Procedure Diagnose(s): Trigger point of neck Bilateral Trapezial Trigger Point Injection Performed by: Migel Browning PA-C Authorized by: Migel Browning PA-C Consent given by: Patient Time out: Immediately prior to the procedure a time out was called Physician or proceduralist has discussed critical or nonroutine steps, procedure duration and anticipated blood loss: Yes Indications: Pain Location: Bilateral trapezial ridge Prep: patient was prepped and draped in usual sterile fashion Needle size: 22 G Anesthetic used: Bupivacaine 0.5% Anesthetic amount (mL): 5 Patient tolerance: Patient tolerated the procedure well with no immediate complications Trigger Point Injection: Patient evaluated in room 8. Trigger point(s) to bilateral trapezial ridges palpated with significant pain and marked with marking pen. Risks (bleeding, infection, reaction to medication, ineffectiveness of the medications, and injury to underlying organs) and benefits of the procedure were discussed with the patient prior to the procedure, and informed consent was obtained. The area was cleaned with chloraprep and allowed to dry. Using sterile technique, 5cc of the 0.5% bupivacaine and 6mg of Celestone were combined in a syringe. A 22g spinal needle was inserted into the trigger point, and the syringe was attached. The medication was injected slowly, with occasional repositioning of the needle to disperse the medication adequately over the area. This was repeated at the second site, splitting the medication approximately equally between the two sites. During initial placement and each repositioning, drawback revealed no blood or air. The needle was removed and disposed in the proper location, and the area of injection was massaged. The patient was encouraged to continue activity and apply heat PRN to the area. Following the procedure, the patient was monitored for 10 minutes. She noted some mild immediate improvement. Migel Browning MS, MICK, KEVIN [facility] Office: [facility] Progress Note Patient Name: Juana Handy Date of Service: : 1965 Impression: Juana Handy is a 55 y.o. year old female with cervical degenerative disc disease causing central and foraminal stenosis at C4-5 and C5-6 who is now status post C4-5 and C5-6 ACDF with fibromyalgia and bilateral trigger points. Plan: - Recommend trigger point injections - see separate documentation No steroid was used during the injection due to the patient's uncontrolled diabetes - Patient to call with update regarding trigger points in 2-3 days - Recommend referral to pain management as the patient is only obtaining short term relief of her related symptoms - Will plan for follow-up in 1 month for repeat injections - Nursing notes reviewed Migel Browning, MS, MPAKim, KEVIN [facility] Office: Chief Complaint: Follow-up (Trigger point injection) HPI: Juana Handy is a 55 y.o. year old female with cervical degenerative disc disease causing central and foraminal stenosis at C4-5 and C5-6 who is now status post C4-5 and C5-6 ACDF, who presents for follow-up evaluation. History is obtained from the patient and chart review. Since her last visit, the patient reports that she has had recurrence of her bilateral trapezial trigger points. She states that her previous injection provided 30% relief for a few days, and then, it waned in its effects. The patient states that the pain seems to be worse when completing any kitchen task including cooking, chopping, and doing the dishes. Pain radiates into the shoulders, but does not radiate down the arms bilaterally. She states that there is no numbness or tingling to the bilateral lower extremities. Additionally, she denies weakness to the bilateral lower extremities. Massage does seem to help. Despite the short-term relief, the patient is requesting another trigger point today. Review of Systems: Review of Systems Constitutional: Positive for appetite change. Negative for chills, fatigue and fever. HENT: Positive for dental problem and facial swelling. Negative for congestion, hearing loss, rhinorrhea and sore throat. Eyes: Negative for pain and visual disturbance. Respiratory: Positive for apnea. Negative for cough and shortness of breath. Cardiovascular: Positive for leg swelling. Negative for chest pain. Gastrointestinal: Negative for abdominal pain, constipation, diarrhea, nausea and vomiting. Endocrine: Negative. Genitourinary: Negative for decreased urine volume, dysuria, hematuria and urgency. Musculoskeletal: Positive for arthralgias, back pain, joint swelling, neck pain and neck stiffness. Negative for gait problem. Skin: Negative for rash and wound. Allergic/Immunologic: Negative. Neurological: Positive for numbness. Negative for dizziness, weakness and headaches. Hematological: Negative for adenopathy. Does not bruise/bleed easily. Psychiatric/Behavioral: Negative for dysphoric mood. The patient is not nervous/anxious. Physical Examination: PACU Vitals 01/01/21 1050 BP: 118/76 Pulse: 76 Resp: 16 SpO2: 96% PainSc: 10-Worst pain ever PainLoc: Generalized General: Healthy, well-appearing 55 y.o. female, in NAD HENT: Nares patent with no drainage, hearing grossly intact to voice Neuro: Awake, alert; face symmetric, speech fluent Neck: Supple, full lateral rotation; negative for posterior midline cervical spine tenderness; positive for bilateral trapezius trigger points Chest: Chest rise symmetric, respirations non-labored Skin: Warm and dry; anterior cervical incision well healed; small scabs over the arms MSK: Muscle Group Right Left Biceps 5 5 Triceps 5 5 Deltoid 5 5 Publication Specialist 5 5 Sensation intact to light touch to bilateral upper extremities. Ambulates without difficulty. documented in this encounter [facility] 10-06-2018 History of Past i llness Narrative Problem Noted Date Diagnosed Date Resolved Date Class 3 severe obesity with serious comorbidity and body mass index (BMI) of 45.0 to 49.9 in adult 10/06/2018 03/23/2023 documented as of this encounter (statuses as of 03/24/2023) [facility]01[facility]2019 History of Past illness Narrative* Problem Noted Date Diagnosed Date Resolved Date Class 3 severe obesity with serious comorbidity and body mass index (BMI) of 45.0 to 49.9 in adult 10/06/2018 03/23/2023 documented as of this encounter (statuses as of 03/30/2023) [address]-2019 History of Past illness Narrative* Problem Noted Date Diagnosed Date Resolved Date Class 3 severe obesity with serious comorbidity and body mass index (BMI) of 45.0 to 49.9 in adult 10/06/2018 03/23/2023 documented as of this encounter (statuses as of 04/09/2023) [address]2019 History of Past illness Narrative* Problem Noted Date Diagnosed Date Resolved Date Class 3 severe obesity with serious comorbidity and body mass index (BMI) of 45.0 to 49.9 in adult 10/06/2018 03/23/2023 documented as of this encounter (statuses as of 04/10/2023) [address]2019 History of Past illness Narrative* Problem Noted Date Diagnosed Date Resolved Date Class 3 severe obesity with serious comorbidity and body mass index (BMI) of 45.0 to 49.9 in adult 10/06/2018 03/23/2023 documented as of this encounter (statuses as of 04/16/2023) [address]2019 History of Past illness Narrative* Problem Noted Date Diagnosed Date Resolved Date Class 3 severe obesity with serious comorbidity and body mass index (BMI) of 45.0 to 49.9 in adult 10/06/2018 03/23/2023 documented as of this encounter (statuses as of 04/17/2023) [address]2019 History of Past illness Narrative* Problem Noted Date Diagnosed Date Resolved Date Class 3 severe obesity with serious comorbidity and body mass index (BMI) of 45.0 to 49.9 in adult 10/06/2018 03/23/2023 documented as of this encounter (statuses as of 04/17/2023) [address] History of Past illness Narrative* Problem Noted Date Diagnosed Date Resolved Date Class 3 severe obesity with serious comorbidity and body mass index (BMI) of 45.0 to 49.9 in adult 10/06/2018 03/23/2023 documented as of this encounter (statuses as of 05/13/2023) [address]2019 History of Past illness Narrative* Problem Noted Date Diagnosed Date Resolved Date Class 3 severe obesity with serious comorbidity and body mass index (BMI) of 45.0 to 49.9 in adult 10/06/2018 03/23/2023 documented as of this encounter (statuses as of 06/08/2023) [address]2019 History of Past illness Narrative* Problem Noted Date Diagnosed Date Resolved Date Class 3 severe obesity with serious comorbidity and body mass index (BMI) of 45.0 to 49.9 in adult 10/06/2018 03/23/2023 documented as of this encounter (statuses as of 06/12/2023) [address]2019 History of Past illness Narrative* Problem Noted Date Diagnosed Date Resolved Date Class 3 severe obesity with serious comorbidity and body mass index (BMI) of 45.0 to 49.9 in adult 10/06/2018 03/23/2023 documented as of this encounter (statuses as of 06/30/2023) [address]2019 History of Past illness Narrative* Problem Noted Date Diagnosed Date Resolved Date Class 3 severe obesity with serious comorbidity and body mass index (BMI) of 45.0 to 49.9 in adult 10/06/2018 03/23/2023 documented as of this encounter (statuses as of 07/04/2023) [address]2019 History of Past illness Narrative* Problem Noted Date Diagnosed Date Resolved Date Class 3 severe obesity with serious comorbidity and body mass index (BMI) of 45.0 to 49.9 in adult 10/06/2018 03/23/2023 documented as of this encounter (statuses as of 07/23/2023) [address]2019 History of Past illness Narrative* Problem Noted Date Diagnosed Date Resolved Date Class 3 severe obesity with serious comorbidity and body mass index (BMI) of 45.0 to 49.9 in adult 10/06/2018 03/23/2023 documented as of this encounter (statuses as of 07/31/2023) [address]2019 History of Past illness Narrative* Problem Noted Date Diagnosed Date Resolved Date Class 3 severe obesity with serious comorbidity and body mass index (BMI) of 45.0 to 49.9 in adult 10/06/2018 03/23/2023 documented as of this encounter (statuses as of 08/25/2023) [address]2019 History of Past illness Narrative* Problem Noted Date Diagnosed Date Resolved Date Class 3 severe obesity with serious comorbidity and body mass index (BMI) of 45.0 to 49.9 in adult 10/06/2018 03/23/2023 documented as of this encounter (statuses as of 12/24/2023) [facility] History of Past illness Narrative* Problem Noted Date Diagnosed Date Resolved Date Class 3 severe obesity with serious comorbidity and body mass index (BMI) of 45.0 to 49.9 in adult 10/06/2018 03/23/2023 documented as of this encounter (statuses as of 12/29/2023) [facility] note* Diagnosis Fibromyalgia Unspecified myalgia and myositis [facility] Diagnosis Trigger point of neck- Primary Fibromyalgia Unspecified myalgia and myositis [facility] Diagnosis Uncontrolled type 2 diabetes mellitus with hyperglycemia, with long-term current use of insulin (HCC)- Primary [facility]* Diagnosis Fibromyalgia- Primary Unspecified myalgia and myositis Trigger point of neck Degenerative disc disease, cervical Status post cervical spinal fusion Arthrodesis status Sacroiliac joint dysfunction of right side Neuropathy Mononeuritis of unspecified site [facility] Diagnosis Gastroesophageal reflux disease, unspecified whether esophagitis present- Primary Fibromyalgia Unspecified myalgia and myositis Hypertension, unspecified type Hyperlipidemia, unspecified hyperlipidemia type Uncontrolled type 2 diabetes mellitus with hyperglycemia (HCC) [facility] Diagnosis Well adult exam- Primary Routine general medical examination at a health care facility Special screening examination for viral disease Special screening examination for unspecified viral disease Obesity, Class II, BMI 35-39.9 Obesity, unspecified [facility] Diagnosis Type 2 diabetes mellitus with peripheral neuropathy (HCC) Fibromyalgia Mylagia and myositis, unspecified [facility] Diagnosis Encounter for screening mammogram for malignant neoplasm of breast Other screening mammogram [facility] Diagnosis Porokeratosis- Primary Other specified congenital anomaly of skin Type 2 diabetes mellitus with peripheral neuropathy (HCC) Onychomycosis Dermatophytosis of nail Pain in toe of left foot Pain in limb Pain in toe of right foot Pain in limb Diminished pulses in lower extremity Other symptoms involving cardiovascular system [facility] Diagnosis Type 2 diabetes mellitus with peripheral neuropathy (HCC) [facility] Diagnosis Type 2 diabetes mellitus without complication, with long-term current use of insulin (HCC)- Primary Type 2 diabetes mellitus with peripheral neuropathy (HCC) Fibromyalgia Mylagia and myositis, unspecified [facility] Onychomycosis- Primary Dermatophytosis of nail Pain in toe of left foot Pain in limb Pain in toe of right foot Pain in limb Type 2 diabetes mellitus with peripheral neuropathy (HCC) Ingrowing toenail Ingrowing nail [facility] Diagnosis Fibromyalgia- Primary Mylagia and myositis, unspecified Breathlessness lying flat Orthopnea [facility] Diagnosis Lung nodules Other nonspecific abnormal finding of lung field [facility] Diagnosis Type 2 diabetes mellitus with peripheral neuropathy (HCC) [facility] Diagnosis Hyperlipidemia, mixed Mixed hyperlipidemia Hypertension, essential Unspecified essential hypertension Type 2 diabetes mellitus with peripheral neuropathy (HCC) [facility] Diagnosis Type 2 diabetes mellitus with peripheral neuropathy (HCC) Fibromyalgia Mylagia and myositis, unspecified [facility]* Diagnosis Well woman exam with routine gynecological exam- Primary Routine gynecological examination Screening for cervical cancer Screening for malignant neoplasm of the cervix Type 2 diabetes mellitus with peripheral neuropathy (HCC) Fibromyalgia Mylagia and myositis, unspecified Decreased appetite Anorexia Dysphagia, unspecified type [facility] Diagnosis Hyperlipidemia, mixed Mixed hyperlipidemia Hypertension, essential Unspecified essential hypertension [facility]* Diagnosis Ingrowing toenail with infection- Primary Ingrowing nail [facility]* Diagnosis Ingrowing toenail with infection Ingrowing nail [facility]* Diagnosis Type 2 diabetes mellitus without complication, with long-term current use of insulin (HCC) [facility]* Diagnosis Type 2 diabetes mellitus with peripheral neuropathy (HCC) Hypertension, essential Unspecified essential hypertension Gastroesophageal reflux disease, unspecified whether esophagitis present Fibromyalgia Mylagia and myositis, unspecified [facility] Diagnosis Hyperlipidemia, mixed Mixed hyperlipidemia Hypertension, essential Unspecified essential hypertension [facility] Diagnosis Lung nodules- Primary Other nonspecific abnormal finding of lung field [facility] Diagnosis Type 2 diabetes mellitus with peripheral neuropathy (HCC) Hypertension, essential Unspecified essential hypertension Gastroesophageal reflux disease, unspecified whether esophagitis present Fibromyalgia Mylagia and myositis, unspecified [facility] Diagnosis Type 2 diabetes mellitus with peripheral neuropathy (HCC) [facility] Diagnosis Type 2 diabetes mellitus with peripheral neuropathy (HCC)- Primary Painful mouth Other and unspecified diseases of the oral soft tissues Dental caries Unspecified dental caries Lung nodule Solitary pulmonary nodule Gastroesophageal reflux disease, unspecified whether esophagitis present [facility] Diagnosis Hyperlipidemia, mixed Mixed hyperlipidemia Hypertension, essential Unspecified essential hypertension Type 2 diabetes mellitus with peripheral neuropathy (HCC) Gastroesophageal reflux disease, unspecified whether esophagitis present Fibromyalgia Mylagia and myositis, unspecified [facility] Diagnosis Onychomycosis- Primary Dermatophytosis of nail Type 2 diabetes mellitus with peripheral neuropathy (HCC) [facility] Diagnosis Hyperlipidemia, mixed- Primary Mixed hyperlipidemia Type 2 diabetes mellitus with peripheral neuropathy (HCC) [facility] Diagnosis Type 2 diabetes mellitus with peripheral neuropathy (HCC) [facility] Diagnosis Type 2 diabetes mellitus with peripheral neuropathy (HCC)- Primary DARLINE (obstructive sleep apnea) Obstructive sleep apnea (adult) (pediatric) CPAP (continuous positive airway pressure) dependence Dependence on other enabling machine Dermoid cyst of spine Benign neoplasm of spinal cord Primary hypertension Unspecified essential hypertension Mixed hyperlipidemia Encounter for immunization Need for other specified prophylactic vaccination against single bacterial disease Encounter for screening mammogram for malignant neoplasm of breast Other screening mammogram Vaginal yeast infection Candidiasis of vulva and vagina [facility] Diagnosis Type 2 diabetes mellitus with peripheral neuropathy (HCC)- Primary Hammer toe of right foot Porokeratosis Other specified congenital anomaly of skin Diminished pulses in lower extremity Other symptoms involving cardiovascular system [facility] Diagnosis Hypertension, essential Unspecified essential hypertension Hyperlipidemia, mixed Mixed hyperlipidemia documented in this encounter [facility]* Diagnosis Type 2 diabetes mellitus with peripheral neuropathy (HCC) Hypertension, essential Unspecified essential hypertension Gastroesophageal reflux disease, unspecified whether esophagitis present Fibromyalgia Mylagia and myositis, unspecified documented in this encounter [facility]* Diagnosis Acute cough- Primary Rhinorrhea Other diseases of nasal cavity and sinuses documented in this encounter [facility]* Diagnosis Breast cancer screening by mammogram documented in this encounter [facility]* Diagnosis Type 2 diabetes mellitus with peripheral neuropathy (HCC) documented in this encounter [facility]* Diagnosis Breast pain, right- Primary Mastodynia documented in this encounter [facility]* Diagnosis DARLINE (obstructive sleep apnea) Obstructive sleep apnea (adult) (pediatric) documented in this encounter [facility]* Diagnosis Type 2 diabetes mellitus without complication, with long-term current use of insulin (HCC)- Primary Hypertension, essential Unspecified essential hypertension Hyperlipidemia, mixed Mixed hyperlipidemia DARLINE (obstructive sleep apnea) Obstructive sleep apnea (adult) (pediatric) Neuropathy Mononeuritis of unspecified site Decreased appetite Anorexia documented in this encounter [facility]* Diagnosis Type 2 diabetes mellitus with peripheral neuropathy (HCC) documented in this encounter [facility]* Diagnosis Hypertension, essential Unspecified essential hypertension Gastroesophageal reflux disease, unspecified whether esophagitis present Type 2 diabetes mellitus with peripheral neuropathy (HCC) documented in this encounter [facility]* Diagnosis Uncontrolled type 2 diabetes mellitus with hyperglycemia (HCC)- Primary documented in this encounter [facility]* Diagnosis Hypertension, essential Unspecified essential hypertension Hyperlipidemia, mixed Mixed hyperlipidemia documented in this encounter [facility]* Diagnosis Breast pain, right Mastodynia documented in this encounter [facility] note* Diagnosis DARLINE (obstructive sleep apnea) Obstructive sleep apnea (adult) (pediatric) documented in this encounter [facility]* Diagnosis Type 2 diabetes mellitus with peripheral neuropathy (HCC) Fibromyalgia Mylagia and myositis, unspecified Type 2 diabetes mellitus without complication, with long-term current use of insulin (HCC) Hypertension, essential Unspecified essential hypertension Gastroesophageal reflux disease, unspecified whether esophagitis present Hyperlipidemia, mixed Mixed hyperlipidemia documented in this encounter [facility]* Diagnosis Severe obstructive sleep apnea- Primary Obstructive sleep apnea (adult) (pediatric) documented in this encounter [facility]* Diagnosis Type 2 diabetes mellitus with peripheral neuropathy (HCC)- Primary Hypertension, essential Unspecified essential hypertension Hyperlipidemia, mixed Mixed hyperlipidemia Gastroesophageal reflux disease, unspecified whether esophagitis present DARLINE (obstructive sleep apnea) Obstructive sleep apnea (adult) (pediatric) Decreased appetite Anorexia Dental caries Unspecified dental caries documented in this encounter [facility]* Diagnosis Type 2 diabetes mellitus with peripheral neuropathy (HCC)- Primary Callus of foot Corns and callosities Hammer toe of right foot documented in this encounter [facility]* Diagnosis Swelling of toe of right foot documented in this encounter [facility]* Diagnosis Hypertension, essential- Primary Unspecified essential hypertension Type 2 diabetes mellitus with peripheral neuropathy (HCC) Hyperlipidemia, mixed Mixed hyperlipidemia Neuropathy Mononeuritis of unspecified site Swelling of toe of right foot Cellulitis of toe of right foot Cellulitis and abscess of toe, unspecified Swelling of toe of right foot documented in this encounter [facility]* Diagnosis Type 2 diabetes mellitus with peripheral neuropathy (HCC) Fibromyalgia Mylagia and myositis, unspecified documented in this encounter [facility]* Diagnosis Breast cancer screening by mammogram documented in this encounter [facility]* Diagnosis Hypertension, essential Unspecified essential hypertension documented in this encounter [facility]* Diagnosis Type 2 diabetes mellitus with peripheral neuropathy (HCC) Fibromyalgia Mylagia and myositis, unspecified documented in this encounter [facility]* Diagnosis Hypertension, essential- Primary Unspecified essential hypertension Hyperlipidemia, mixed Mixed hyperlipidemia Diabetic polyneuropathy associated with type 2 diabetes mellitus (HCC) documented in this encounter [facility]* Diagnosis Hyperlipidemia, mixed Mixed hyperlipidemia documented in this encounter [facility]* Diagnosis Encounter for screening mammogram for breast cancer documented in this encounter [facility]* Diagnosis Hyperlipidemia, mixed Mixed hyperlipidemia documented in this encounter [facility]* Diagnosis Hypertension, essential Unspecified essential hypertension documented in this encounter [facility]* Diagnosis Type 2 diabetes mellitus with peripheral neuropathy (HCC)- Primary skilled nursing (current) use of insulin (HCC) Hypertension, essential Unspecified essential hypertension Hyperlipidemia, mixed Mixed hyperlipidemia Class 2 severe obesity with serious comorbidity and body mass index (BMI) of 37.0 to 37.9 in adult, unspecified obesity type (HCC) Encounter for immunization Need for other specified prophylactic vaccination against single bacterial disease [facility] Diagnosis Type 2 diabetes mellitus with peripheral neuropathy (HCC) Hypertension, essential Unspecified essential hypertension Hyperlipidemia, mixed Mixed hyperlipidemia Fibromyalgia Mylagia and myositis, unspecified Gastroesophageal reflux disease, unspecified whether esophagitis present Severe obstructive sleep apnea Obstructive sleep apnea (adult) (pediatric) [facility]* Diagnosis Type 2 diabetes mellitus with peripheral neuropathy (HCC) [facility] Diagnosis Type 2 diabetes mellitus without complication, with long-term current use of insulin (HCC)- Primary documented in this encounter [facility] for referral (narrative)* Diagnostic Procedure Only (Routine) - Closed Specialty Diagnoses / Procedures Referred By Jeevan amezquita Referred To Contact [facility] Diagnoses Encounter for screening mammogram for malignant neoplasm of breast Procedures FRED SCREENING SCREENING MAMMOGRAPHY BI 2-VIEW BREAST INC CAD Arianna Rosales APRN.CNP [address] [place] [id number] [facility] [address] [place] [id number] Referral ID Status Reason Start Date Expiration Date V isits Requested Visits Authorized [id number] Closed Auto-Generate d Referral 11/11/2021 12/11/2022 1 1 [facility] for referral (narrative)* Outpatient Procedure (Routine) - Authorized Specialty Diagnoses / Procedures Referred By Jeevan amezquita [facility] Diagnoses Type 2 diabetes mellitus with peripheral neuropathy (HCC) Onychomycosis Diminished pulses in lower extremity Procedures PVR ANK PRESS [facility] VAS [facility] NON-INVAS PHYSIOLOGIC STD EXTREMITY ART [address] [place] [address] [facility] [place] [address] [place] [address] Referral ID Status Reason Start Date Expiration Date Visits Requested Visits Authorized [id number] Authorized Auto-Generat ed Referral 01/06/2022 01/06/2023 1 1 [facility] for referral (narrative)* Diagnostic Procedure Only (Routine) - Closed Specialty Diagnoses / Procedures Referred By Contac t Referred To Contact [facility] Diagnoses Ingrowing toenail with infection Procedures XR FOOT GENERAL 3V AP/LAT/OBL RIGHT RADEX FOOT COMPLETE MINIMUM 3 VIEWS Ada Shin [address] [place] [address] [facility] Referral ID Status Reason Start Date Expiration Date V isits Requested Visits Authorized [id number] Closed Auto-Generate d Referral 05/26/2022 06/25/2023 1 1 [facility] for referral (narrative)* Diagnostic Procedure Only (Routine) - Closed Specialty Diagnoses / Procedures Referred By Contac t Referred To Contact [facility] Diagnoses Ingrowing toenail with infection Procedures XR FOOT GENERAL 3V AP/LAT/OBL RIGHT RADEX FOOT COMPLETE MINIMUM 3 VIEWS Ada Shin [address] [place] [address] [facility] Referral ID Status Reason Start Date Expiration Date V isits Requested Visits Authorized [id number] Closed Auto-Generate d Referral 05/26/2022 06/25/2023 1 1 T [facility] for referral (narrative)* Diagnostic Procedure Only (Routine) - Pending Review Specialty Diagnoses / Procedures Referred By Contac t Referred To Contact [facility] Diagnoses Breast pain, right Procedures US BREAST COMPLETE RIGHT US BREAST UNI REAL TIME WITH IMAGE COMPLETE Arianna Rosales, LOCOMOTIVE ENGINEER.CORPORATE CONSULTANT [address] [place] [address] [facility] [address] [place] [address] Referral ID Status Reason Start Date Expiration Date Visits Requested Visits Authorized [id number] Pending Review Auto-Generat ed Referral 03/10/2023 04/08/2024 1 1 [facility] for referral (narrative)* Diagnostic Procedure Only (Routine) - Closed Specialty Diagnoses / Procedures Referred By Jeevan t Referred To Contact [facility] Diagnoses Swelling of toe of right foot Procedures XR TOE AP/LAT/OBL RIGHT RADEX TOE MINIMUM 2 VIEWS Arianna Rosales APRN.CORPORATE CONSULTANT [address] [place] [address] [place] [address] Referral ID Status Reason Start Date Expiration Date V isits Requested Visits Authorized [id number] Closed Auto-Generate d Referral 01/05/2024 02/03/2025 1 1 [facility] for visit Narrative* Diagnostic Procedure Only (Routine) - Closed Specialty Diagnoses / Procedures Referred By Jeevan amezquita Referred To Contact [facility] Diagnoses Encounter for screening mammogram for malignant neoplasm of breast Procedures FRED SCREENING SCREENING MAMMOGRAPHY BI 2-VIEW BREAST INC CAD Arianna Rosales APRN.CORPORATE CONSULTANT [address] [place] [address] [facility] [address] [place] [address] Referral ID Status Reason Start Date Expiration Date V isits Requested Visits Authorized [id number] Closed Auto-Generate d Referral 11/11/2021 12/11/2022 1 1 [facility] for visit Narrative* Diagnostic Procedure Only (Routine) - Closed Specialty Diagnoses / Procedures Referred By Jeevan t Referred To Contact [facility] Diagnoses Ingrowing toenail with infection Procedures XR FOOT GENERAL 3V AP/LAT/OBL RIGHT RADEX FOOT COMPLETE MINIMUM 3 VIEWS [address] [place] [address] [facility] Referral ID Status Reason Start Date Expiration Date V isits Requested Visits Authorized [id number] Closed Auto-Generate d Referral 05/26/2022 06/25/2023 1 1 [facility] for visit Narrative* Diagnostic Procedure Only (Routine) - Closed Specialty Diagnoses / Procedures Referred By Contac t Referred To Contact [facility] Diagnoses Breast pain, right Procedures FRED DIAGNOSTIC BILATERAL DIAGNOSTIC MAMMOGRAPHY COMPUTER-AIDED DETCJ BI Scott Yepez DO [address] [place] [address] [facility] [address] [place] [address] Referral ID Status Reason Start Date Expiration Date V isits Requested Visits Authorized [id number] Closed Auto-Generate d Referral 02/24/2023 03/25/2024 1 1 [facility] for visit Narrative* Diagnostic Procedure Only (Routine) - Closed Specialty Diagnoses / Procedures Referred By Contac t Referred To Contact [facility] Diagnoses Swelling of toe of right foot Procedures XR TOE AP/LAT/OBL RIGHT RADEX TOE MINIMUM 2 VIEWS Arianna Rosales, LOCOMOTIVE ENGINEER.CORPORATE CONSULTANT [address] [place] [address] [place] [address] Referral ID Status Reason Start Date Expiration Date V isits Requested Visits Authorized [id number] Closed Auto-Generate d Referral 01/05/2024 02/03/2025 1 1 [facility] for visit Narrative* Diagnostic Procedure Only (Routine) - Closed Specialty Diagnoses / Procedures Referred By Contac t Referred To Contact [facility] Diagnoses Encounter for screening mammogram for breast cancer Procedures FRED SCREENING W ALFREDO SCREENING DIGITAL BREAST TOMOSYNTHESIS BI SCREENING MAMMOGRAPHY BI 2-VIEW BREAST INC CAD Arianna Rosales, LOCOMOTIVE ENGINEER.CORPORATE CONSULTANT [address] [place] [address] Phone: tel: fax: [facility] [address] [place] [address] Referral ID Status Reason Start Date Expiration Date V isits Requested Visits Authorized [id number] Closed Auto-Generate d Referral 05/05/2024 06/04/2025 1 1 [facility] Assessments Diagnosis Lumbar degenerative disc dis ease - Primary Spinal stenosis of lumbar re gion without neurogenic claudication Diagnosis Type 2 diabetes mellitus wit h complication, without long-term current use of insulin (HCC) - Primary Diagnosis Lumbar degenerative disc dis ease - Primary Diagnosis Neuropathy involving both lo wer extremities Numbness Disturbance of skin sensation Diagnosis Type 2 diabetes mellitus wit h hyperglycemia, unspecified terminal block assembler insulin use status (HCC) - Primary Diagnosis Type 2 diabetes mellitus wit h hyperglycemia, unspecified correction insulin use status ([facility]) - Primary Diagnosis Lumbar degenerative disc dis ease - Primary Diagnosis Herniated intervertebral dis c of lumbar spine - Primary Spinal stenosis of lumbar re gion without neurogenic claudication Diagnosis Benign essential HTN - Prima ry Preop cardiovascular exam Pre-operative cardiovascular examination Other hyperlipidemia Diagnosis Microcalcification of left b reast on mammogram - Primary Fibrocystic breast disease ( FCBD), unspecified laterality Diagnosis Microcalcification of left b reast on mammogram - Primary Diagnosis Special screening for malign ant neoplasms, colon Diagnosis Herniated intervertebral dis c of lumbar spine - Primary Lumbar degenerative disc dis ease Diagnosis Lumbar degenerative disc dis ease - Primary Diagnosis Type 2 diabetes mellitus wit h hyperglycemia, with long-term current use of insulin ([facility]) - Primary Dental caries Unspecified dental caries Preoperative clearance Unspecified pre-operative examination Diagnosis Lumbar degenerative disc dis ease - Primary Spinal stenosis of lumbar re gion without neurogenic claudication Diagnosis Uncontrolled type 2 diabetes mellitus with hyperglycemia, with long-term current use of insulin ([facility]) - Primary Hypertension, unspecified ty pe Diagnosis Type 2 diabetes mellitus wit hout complication, with long-term current use of insulin ([facility]) - Primary Uncontrolled type 2 diabetes mellitus with hyperglycemia, with long-term current use of insulin ([facility]) Diagnosis S/P spinal fusion - Primary Arthrodesis status Diagnosis H/O spinal fusion - Primary Diagnosis Lumbar degenerative disc dis ease - Primary H/O spinal fusion Diagnosis S/P lumbar spinal fusion - P rimary Arthrodesis status Diagnosis Lumbar degenerative disc dis ease - Primary Thoracic back pain, unspecif ied back pain laterality, unspecified chronicity Diagnosis Type 2 diabetes mellitus wit h diabetic polyneuropathy, with long-term current use of insulin ([facility]) - Primary Hypercholesterolemia Pure hypercholesterolemia Essential hypertension Unspecified essential hypertension Neuropathy involving both lo wer extremities Uncontrolled type 2 diabetes mellitus with hyperglycemia, with long-term current use of insulin ([facility]) Diagnosis Type 2 diabetes mellitus with diabetic polyneuropathy, with long-term current use of insulin ([facility])- Primary Hypercholesterolemia Pure hypercholesterolemia Essential hypertension Unspecified essential hypertension Diagnosis Encounter for hepatitis C screening test for low risk patient- Primary Immunization due Hyperlipidemia, unspecified hyperlipidemia type Fibromyalgia Unspecified myalgia and myositis Uncontrolled type 2 diabetes mellitus with hyperglycemia, with long-term current use of insulin (HCC) Hypertension, unspecified type Chest pain of uncertain etiology Diagnosis S/P lumbar spinal fusion Arthrodesis status Lumbar degenerative disc disease Diagnosis H/O spinal fusion Diagnosis H/O spinal fusion Diagnosis Back strain, initial encounter- Primary Diagnosis H/O spinal fusion Diagnosis Degenerative disc disease, cervical- Primary Diagnosis Pain Generalized pain Diagnosis H/O spinal fusion Diagnosis H/O spinal fusion Diagnosis H/O spinal fusion Diagnosis Uncontrolled type 2 diabetes mellitus with hyperglycemia, with long-term current use of insulin (HCC)- Primary Hypertension, unspecified type Hyperlipidemia, unspecified hyperlipidemia type Diagnosis H/O spinal fusion Diagnosis H/O spinal fusion Diagnosis Spinal stenosis of lumbar region without neurogenic claudication- Primary Spinal stenosis, lumbar region, without neurogenic claudication Diagnosis Chronic bilateral low back pain without sciatica- Primary Contusion of right foot, initial encounter Diagnosis Uncontrolled type 2 diabetes mellitus with hyperglycemia, with long-term current use of insulin (HCC)- Primary Diagnosis Periumbilical abdominal pain- Primary Abdominal pain, periumbilic Hypokalemia Hypopotassemia Diagnosis Uncontrolled type 2 diabetes mellitus with hyperglycemia, with long-term current use of insulin ([facility])- Primary Hypertension, unspecified type Hyperlipidemia, unspecified hyperlipidemia type Neuropathy involving both lower extremities Diagnosis Hypertension, unspecified type- Primary Hyperlipidemia, unspecified hyperlipidemia type Class 3 severe obesity with serious comorbidity and body mass index (BMI) of 45.0 to 49.9 in adult, unspecified obesity type (HCC) Gastroesophageal reflux disease, esophagitis presence not specified Diagnosis Spinal stenosis of lumbar region without neurogenic claudication- Primary Diagnosis Pain in both lower extremities- Primary Diagnosis Uncontrolled type 2 diabetes mellitus with hyperglycemia, with long-term current use of insulin ([facility])- Primary Hypertension, unspecified type Diagnosis Pain, dental Gum disease Unspecified gingival and periodontal disease Diagnosis Chronic neck pain Cervicalgia Chronic thoracic spine pain Chronic bilateral low back pain, unspecified whether sciatica present Diagnosis Chronic thoracic spine pain Chronic neck pain Cervicalgia Diagnosis Acute UTI Urinary tract infection, site not specified Lightheaded Dizziness and giddiness Diagnosis History of fibrocystic disease of breast Screening mammogram, encounter for Diagnosis Gastroesophageal reflux disease, esophagitis presence not specified Hypertension, unspecified type Hyperlipidemia, unspecified hyperlipidemia type Class 3 severe obesity with serious comorbidity and body mass index (BMI) of 45.0 to 49.9 in adult, unspecified obesity type (HCC) Depression with anxiety Dysthymic disorder Diagnosis Chronic thoracic spine pain Chronic neck pain Cervicalgia Chronic bilateral low back pain, unspecified whether sciatica present Diagnosis Hypertension, unspecified type Neuropathy involving both lower extremities Diagnosis Chronic thoracic spine pain Chronic bilateral low back pain, unspecified whether sciatica present Chronic neck pain Cervicalgia Diagnosis Uncontrolled type 2 diabetes mellitus with hyperglycemia, with long-term current use of insulin ([facility]) Hypertension, unspecified type Hyperlipidemia, unspecified hyperlipidemia type Neuropathy involving both lower extremities Diagnosis Uncontrolled diabetes mellitus with diabetic neuropathy ([facility]) Diagnosis Diabetic polyneuropathy associated with type 2 diabetes mellitus ([facility]) Ulnar neuropathy at elbow, left Diagnosis Essential hypertension Unspecified essential hypertension Anxiety Anxiety state, unspecified Yeast infection of the skin Candidiasis of skin and nails Diagnosis Chronic neck pain Cervicalgia Diagnosis Chronic bilateral low back pain, unspecified whether sciatica present Diagnosis Uncontrolled type 2 diabetes mellitus with hyperglycemia, with long-term current use of insulin ([facility]) Type 2 diabetes mellitus without complication, with long-term current use of insulin ([facility]) Essential hypertension Unspecified essential hypertension Hyperlipidemia, unspecified hyperlipidemia type Diagnosis Primary osteoarthritis of both knees Diagnosis Essential hypertension Unspecified essential hypertension Depression with anxiety Dysthymic disorder Diagnosis Degenerative disc disease, cervical Diagnosis Degenerative disc disease, cervical Diagnosis Neck pain Cervicalgia Diagnosis Degenerative disc disease, cervical- Primary Pulmonary nodule Other diseases of lung, not elsewhere classified Diagnosis Pulmonary nodule, left Other diseases of lung, not elsewhere classified Diagnosis Degenerative disc disease, cervical- Primary S/P cervical spinal fusion Arthrodesis status Lumbar degenerative disc disease Herniated intervertebral disc of lumbar spine Spinal stenosis of lumbar region without neurogenic claudication Uncontrolled type 2 diabetes mellitus with hyperglycemia, with long-term current use of insulin ([facility]) Neuropathy involving both lower extremities Type 2 diabetes mellitus without complication, with long-term current use of insulin ([facility]) H/O spinal fusion Essential hypertension Unspecified essential hypertension Hyperlipidemia, unspecified hyperlipidemia type Fibromyalgia Unspecified myalgia and myositis Class 3 severe obesity with serious comorbidity and body mass index (BMI) of 45.0 to 49.9 in adult, unspecified obesity type ([facility]) Gastroesophageal reflux disease, esophagitis presence not specified Chronic neck pain Cervicalgia Chronic thoracic spine pain Chronic bilateral low back pain, unspecified whether sciatica present Anxiety and depression Intractable vomiting with nausea, unspecified vomiting type Anxiety Anxiety state, unspecified Pulmonary nodule, left Other diseases of lung, not elsewhere classified Preoperative examination, unspecified Diagnosis Herniated intervertebral disc of lumbar spine- Primary Hypertension, unspecified type Fibromyalgia Unspecified myalgia and myositis S/P cervical spinal fusion Arthrodesis status Diagnosis Degenerative disc disease, cervical Status post cervical spinal fusion Arthrodesis status Diagnosis Odontalgia- Primary Unspecified disorder of the teeth and supporting structures Diagnosis Pneumonia due to COVID-19 virus- Primary Acute UTI Urinary tract infection, site not specified Hyperglycemia Other abnormal glucose Diagnosis Pulmonary nodule Other diseases of lung, not elsewhere classified Diagnosis Uncontrolled type 2 diabetes mellitus with hyperglycemia, with long-term current use of insulin (HCC) Diagnosis Intractable vomiting with nausea, unspecified vomiting type Fibromyalgia Unspecified myalgia and myositis Anxiety Anxiety state, unspecified Chest pain of uncertain etiology Hyperlipidemia, unspecified hyperlipidemia type Diagnosis Fibromyalgia- Primary Unspecified myalgia and myositis Herniated intervertebral disc of lumbar spine Spinal stenosis of lumbar region without neurogenic claudication H/O spinal fusion Diagnosis Degenerative disc disease, cervical- Primary Pulmonary nodule, left- Primary Other diseases of lung, not elsewhere classified Essential hypertension Unspecified essential hypertension Anxiety and depression Degenerative disc disease, cervical Diagnosis Chronic neck pain Cervicalgia Chronic thoracic spine pain Chronic bilateral low back pain, unspecified whether sciatica present Diagnosis Lumbar degenerative disc disease- Primary Herniated intervertebral disc of lumbar spine Spinal stenosis of lumbar region without neurogenic claudication Diagnosis H/O spinal fusion Diagnosis Acute post-operative pain- Primary Degenerative disc disease, cervical Chronic neck pain Cervicalgia Diagnosis Fibromyalgia Unspecified myalgia and myositis Hypertension, unspecified type Chronic neck pain Cervicalgia Gastroesophageal reflux disease, esophagitis presence not specified Diagnosis History of fibrocystic disease of breast- Primary Screening mammogram, encounter for Diagnosis Chronic dental pain- Primary Gastroesophageal reflux disease, unspecified whether esophagitis present Hypertension, unspecified type Mixed hyperlipidemia Fibromyalgia Unspecified myalgia and myositis Instructions * Patient Instructions - Scott Espinosa CNP - 02/24/2018 2:15 PM EDT Learning About Meal Planning for Diabetes Why plan your meals? Meal planning can be a tran part of managing diabetes. Planning meals and snacks with the right balance of carbohydrate, protein, and fat can help you keep your blood sugar at the target level you setwith your doctor. You don't have to eat special foods. You can eat what your family eats, including sweets once in a while. But you do have to pay attention to how often you eat and how much you eat of certain foods. You may want to work with a dietitian or a certified prosthetist vice president. He or she can give you tipsand meal ideas and can answer your questions about meal planning. This health professional can alsohelp you reach a healthy weight if that is one of your goals. What plan is right for you? Your dietitian or electrical tester battery may suggest that you start with the plate format or carbohydrate counting. The plate format The plate format is a simple way to help you manage how you eat. You plan meals by learning how much space each food should take on a plate. Using the plate format helps you spread carbohydrate throughout the day. It can make it easier to keep your blood sugar level within your target range. It also helps you see if you're eating healthy portion sizes. To use the plate format, you put non-starchy vegetables on half your plate. Add meat or meat substitutes on one-quarter of the plate. Put a grain or starchy vegetable (such as brown rice or a potato)on the final quarter of the plate. You can add a small piece of fruit and some low-fat or fat-free milk or yogurt, depending on your carbohydrate goal for each meal. Here are some tips for using the plate format: Make sure that you are not using an oversized plate. A 9-inch plate is best. Many restaurants use larger plates. Get used to using the plate format at home. Then you can use it when you eat out. Write down your questions about using the plate format. Talk to your doctor, a dietitian, or a electrical tester battery about your concerns. Carbohydrate counting With carbohydrate counting, you plan meals based on the amount of carbohydrate in each food. Carbohydrate raises blood sugar higher and more quickly than any other nutrient. It is found in desserts, breads and cereals, and fruit. It's also found in starchy vegetables such as potatoes and corn, grains such as rice and pasta, and milk and yogurt. Spreading carbohydrate throughout the day helps keepyour blood sugar levels within your target range. Your daily amount depends on several things, including your weight, how active you are, which diabetes medicines you take, and what your goals are for your blood sugar levels. A registered dietitian or electrical tester battery can help you plan how much carbohydrate to include in each meal and snack. A guideline for your daily amount of carbohydrate is: 45 to 60 grams at each meal. That's about the same as 3 to 4 carbohydrate servings. 15 to 20 grams at each snack. That's about the same as 1 carbohydrate serving. The Nutrition Facts label on packaged foods tells you how much carbohydrate is in a serving of the food. First, look at the serving size on the food label. Is that the amount you eat in a serving? All of the nutrition information on a food label is based on that serving size. So if you eat more or less than that, you'll need to adjust the other numbers. Total carbohydrate is the next thing you need to look for on the label. If you count carbohydrate servings, one serving of carbohydrate is 15 grams. For foods that don't come with labels, such as fresh fruits and vegetables, you'll need a guide that lists carbohydrate in these foods. Ask your doctor, dietitian, or electrical tester battery about books orother nutrition guides you can use. If you take insulin, you need to know how many grams of carbohydrate are in a meal. This lets you know how much rapid-acting insulin to take before you eat. If you use an insulin pump, you get a constant rate of insulin during the day. So the pump must be programmed at meals to give you extra insulin to cover the rise in blood sugar after meals. When you know how much carbohydrate you will eat, you can take the right amount of insulin. Or, if you always use the same amount of insulin, you need to make sure that you eat the same amount of carbohydrate at meals. If you need more help to understand carbohydrate counting and food labels, ask your doctor, dietitian, or electrical tester battery. How do you get started with meal planning? Here are some tips to get started: Plan your meals a week at a time. Don't forget to include snacks too. Use cookbooks or online recipes to plan several main meals. Plan some quick meals for busy nights. You also can double some recipes that freeze well. Then you can save half for other busy nights whenyou don't have time to cook. Make sure you have the ingredients you need for your recipes. If you're running low on basic items,put these items on your shopping list too. List foods that you use to make breakfasts, lunches, and snacks. List plenty of fruits and vegetables. Post this list on the refrigerator. Add to it as you think of more things you need. Take the list to the store to do your weekly shopping. Follow-up care is a tran part of your treatment and safety. Be sure to make and go to all appointments, and call your doctor if you are having problems. It's also a good idea to know your test resultsand keep a list of the medicines you take. Where can you learn more? Log into your personal health record on [email or web address] and enter X936 in the "Education" box to learn more about "Learning About Meal Planning for Diabetes." Current as of: August 20, 2017 Content Version: .[id number] [employer]. Care instructions adapted under license by your healthcare professional. If you have questions about a medical condition or this instruction, always ask your healthcare professional. [employer] disclaims any warranty or liability for your use of this information. Learning About Diabetes Food Guidelines Your Care Instructions Meal planning is important to manage diabetes. It helps keep your blood sugar at a target level (which you set with your doctor). You don't have to eat special foods. You can eat what your family eats, including sweets once in a while. But you do have to pay attention to how often you eat and how much you eat of certain foods. You may want to work with a dietitian or a certified prosthetist vice president (CDE) to help you plan mealsand snacks. A dietitian or CDE can also help you lose weight if that is one of your goals. What should you know about eating carbs? Managing the amount of carbohydrate (carbs) you eat is an important part of healthy meals when you have diabetes. Carbohydrate is found in many foods. Learn which foods have carbs. And learn the amounts of carbs in different foods. Bread, cereal, pasta, and rice have about 15 grams of carbs in a serving. A serving is 1 slice of bread (1 ounce), cup of cooked cereal, or 1/3 cup of cooked pasta or rice. Fruits have 15 grams of carbs in a serving. A serving is 1 small fresh fruit, such as an apple or orange; of a banana; cup of cooked or canned fruit; cup of fruit juice; 1 cup of melon or raspberries; or 2 tablespoons of dried fruit. Milk and tw-hwsoo-qyarx yogurt have 15 grams of carbs in a serving. A serving is 1 cup of milk or 2/[address] of dr-noars-ofeyb yogurt. Starchy vegetables have 15 grams of carbs in a serving. A serving is cup of mashed potatoes or sweet potato; 1 cup winter squash; of a small baked potato; cup of cooked beans; or cup cooked corn or green peas. Learn how much carbs to eat each day and at each meal. A dietitian or CDE can teach you how to keeptrack of the amount of carbs you eat. This is called carbohydrate counting. If you are not sure how to count carbohydrate grams, use the Plate Method to plan meals. It is a good, quick way to make sure that you have a balanced meal. It also helps you spread carbs throughout the day. Divide your plate by types of foods. Put non-starchy vegetables on half the plate, meat or other protein food on one-quarter of the plate, and a grain or starchy vegetable in the final quarter of theplate. To this you can add a small piece of fruit and 1 cup of milk or yogurt, depending on how many carbs you are supposed to eat at a meal. Try to eat about the same amount of carbs at each meal. Do not "save up" your daily allowance of carbs to eat at one meal. Proteins have very little or no carbs per serving. Examples of proteins are beef, chicken, turkey, fish, eggs, tofu, cheese, cottage cheese, and peanut butter. A serving size of meat is 3 ounces, which is about the size of a deck of cards. Examples of meat substitute serving sizes (equal to 1 ounceof meat) are 1/4 cup of cottage cheese, 1 egg, 1 tablespoon of peanut butter, and cup of tofu. How can you eat out and still eat healthy? Learn to estimate the serving sizes of foods that have carbohydrate. If you measure food at home, it will be easier to estimate the amount in a serving of restaurant food. If the meal you order has too much carbohydrate (such as potatoes, corn, or baked beans), ask to have a low-carbohydrate food instead. Ask for a salad or green vegetables. If you use insulin, check your blood sugar before and after eating out to help you plan how much toeat in the future. If you eat more carbohydrate at a meal than you had planned, take a walk or do other exercise. Thiswill help lower your blood sugar. What else should you know? Limit saturated fat, such as the fat from meat and dairy products. This is a healthy choice becausepeople who have diabetes are at higher risk of heart disease. So choose lean cuts of meat and nonfat or low-fat dairy products. Use olive or canola oil instead of butter or shortening when cooking. Don't skip meals. Your blood sugar may drop too low if you skip meals and take insulin or certain medicines for diabetes. Check with your doctor before you drink alcohol. Alcohol can cause your blood sugar to drop too low. Alcohol can also cause a bad reaction if you take certain diabetes medicines. Follow-up care is a tran part of your treatment and safety. Be sure to make and go to all appointments, and call your doctor if you are having problems. It's also a good idea to know your test resultsand keep a list of the medicines you take. Where can you learn more? Log into your personal health record on [email or web address] and enter I147 in the "Education" box to learn more about "Learning About Diabetes Food Guidelines." Current as of: August 20, 2017 Content Version: .[id number] [employer]. Care instructions adapted under license by your healthcare professional. If you have questions about a medical condition or this instruction, always ask your healthcare professional. [employer] disclaims any warranty or liability for your use of this information. in this encounter* Patient Instructions - Sctot Espinosa, CORPORATE CONSULTANT - 03/26/2018 11:16 AM EDT Formatting of this note may be different from the original. Type 2 Diabetes: Care Instructions Your Care Instructions Type 2 diabetes is a disease that develops when the body's tissues cannot use insulin properly. Over time, the pancreas cannot make enough insulin. Insulin is a hormone that helps the body's cells use sugar (glucose) for energy. It also helps the body store extra sugar in muscle, fat, and liver cells. Without insulin, the sugar cannot get into the cells to do its work. It stays in the blood instead.This can cause high blood sugar levels. A person has diabetes when the blood sugar stays too high too much of the time. Over time, diabetes can lead to diseases of the heart, blood vessels, nerves, kidneys, and eyes. You may be able to control your blood sugar by losing weight, eating a healthy diet, and getting daily exercise. You may also have to take insulin or other diabetes medicine. Follow-up care is a tran part of your treatment and safety. Be sure to make and go to all appointments. Call your doctor if you are having problems. It's also a good idea to know your test results andkeep a list of the medicines you take. How can you care for yourself at home? Keep your blood sugar at a target level (which you set with your doctor). Eat a good diet that spreads carbohydrate throughout the day. Carbohydrate-the body's main source of fuel-affects blood sugar more than any other nutrient. Carbohydrate is in fruits, vegetables, milk, and yogurt. It also is in breads, cereals, vegetables such as potatoes and corn, and sugary foods such as candy and cakes. Aim for 30 minutes of exercise on most, preferably all, days of the week. Walking is a good choice.You also may want to do other activities, such as running, swimming, cycling, or playing tennis or team sports. If your doctor says it's okay, do muscle-strengthening exercises at least 2 times a week. Take your medicines exactly as prescribed. Call your doctor if you think you are having a problem with your medicine. You will get more details on the specific medicines your doctor prescribes. Check your blood sugar as often as your doctor recommends. It is important to keep track of any symptoms you have, such as low blood sugar. Also tell your doctor if you have any changes in your activities, diet, or insulin use. Talk to your doctor before you start taking aspirin every day. Aspirin can help certain people lower their risk of a heart attack or stroke. But taking aspirin isn't right for everyone, because it can cause serious bleeding. Do not smoke. If you need help quitting, talk to your doctor about stop-smoking programs and medicines. These can increase your chances of quitting for good. Keep your cholesterol and blood pressure at normal levels. You may need to take one or more medicines to reach your goals. Take them exactly as directed. Do not stop or change a medicine without talking to your doctor first. When should you call for help? Call 911 anytime you think you may need emergency care. For example, call if: ? You passed out (lost consciousness), or you suddenly become very sleepy or confused. (You may have very low blood sugar.) ?Call your doctor now or seek immediate medical care if: ? Your blood sugar is 300 mg/dL or is higher than the level your doctor has set for you. ? You have symptoms of low blood sugar, such as: Sweating. Feeling nervous, shaky, and weak. Extreme hunger and slight nausea. Dizziness and headache. Blurred vision. Confusion. ?Watch closely for changes in your health, and be sure to contact your doctor if: ? You often have problems controlling your blood sugar. ? You have symptoms of long-term diabetes problems, such as: New vision changes. New pain, numbness, or tingling in your hands or feet. Skin problems. Where can you learn more? Log into your personal health record on [email or web address] and enter C553 in the "Education" box to learn more about "Type 2 Diabetes: Care Instructions." Current as of: August 20, 2017 Content Version: .[id number] [employer]. Care instructions adapted under license by your healthcare professional. If you have questions about a medical condition or this instruction, always ask your healthcare professional. [employer] disclaims any warranty or liability for your use of this information. Learning About ROZ Inhibitors and ARBs for Diabetes Introduction ROZ inhibitors and ARBs are medicines used to control blood pressure. They allow blood vessels to relax and open up. This lowers your blood pressure. When you have diabetes, taking an ROZ inhibitor or ARB can help to: Treat high blood pressure. Your risk of problems from diabetes goes up when you have high blood pressure. Prevent or slow kidney damage. Diabetes can damage the blood vessels in the kidneys. High blood pressure can damage the kidneys, too. Lower the risks of stroke and heart attack. Your risks go up when you have high blood pressure, heart disease, or both. An ROZ inhibitor or ARB is a good choice for people with diabetes. Unlike some medicines, these don't affect blood sugar levels. Examples ROZ inhibitors include: Benazepril. Lisinopril. Ramipril. ARBs include: Irbesartan. Losartan. Telmisartan. Possible side effects All medicines can cause side effects. Some side effects of ROZ inhibitors include: Low blood pressure. You may feel dizzy and weak. A cough. High potassium levels. An allergic reaction of the skin. Symptoms may range from mild swelling to painful welts. Some side effects of ARBs include: Diarrhea. High potassium levels. Sinus problems. Stomach problems. You may have other side effects or reactions not listed here. Check the information that comes withyour medicine. What to know about taking this medicine Be safe with medicines. Take your medicines exactly as prescribed. Call your doctor if you think you are having a problem with your medicine. Before starting an ROZ inhibitor or ARB, tell your doctor if you: Use a salt substitute. Take diuretics or potassium tablets. These medicines are not safe for . If you are or planning to be, talk to your doctor about a safe blood pressure medicine. ROZ inhibitors can cause a dry cough. If the cough is bad, talk to your doctor. Switching to an ARBis likely to help. Taking some medicines together can cause problems. Tell your doctor or pharmacist all the medicinesyou take. This includes irqe-ksr-qfngvoi medicines, vitamins, herbal products, and supplements. You may need regular blood and urine tests. Where can you learn more? Log into your personal health record on [email or web address] and enter M316 in the "Education" box to learn more about "Learning About ROZ Inhibitors and ARBs for Diabetes." Current as of: August 20, 2017 Content Version: 11.6 9050-5148 [employer]. Care instructions adapted under license by your healthcare professional. If you have questions about a medical condition or this instruction, always ask your healthcare professional. [employer] disclaims any warranty or liability for your use of this information. in this encounter* Patient Instructions - Meka Price DO - 05/05/2018 11:42 AM EDT Uncontrolled type 2 diabetes mellitus with hyperglycemia, with long-term current use of insulin (HCC) I will see you in 4 months, please get your fasting blood work in 3 months and schedule a female exam when you are able to I have sent rx for her insulin, pt is undergoing sugery Thursday with Dr Pat in this encounter* Patient Instructions - Naomi Reece MD - 07/20/2018 12:18 PM EST Stop alogliptin. Start Victoza 0.6 mg in AM for one week, then 1.2 mg daily . Call if Nausea/ vomiting/ abdominal pain. Report blood glucose readings to our office at [phone] in 2 weeks. in this encounter* Patient Instructions* Marianela Fowler CNP - 11/14/2018 2:18 PM EST Continue to take medications as ordered. in this encounter* Patient Instructions* Meka Aggarwal PA-C - 12/28/2018 11:25 AM EDT Increase Basaglar insulin: 43 units at bedtime Continue: Admelog 15 units TID ac Glimepiride 2 mg twice daily Victoza 1.2 mg daily Check blood sugars before meals and bedtime Call to report if blood sugars are elevated for further adjustment between apt Continue to work on diet and lifestyle documented in this encounter* Patient Instructions* Garima Combs CNP - 04/29/2019 2:40 PM EDT Increase Lantus to 43units at bedtime Humalog 15units breakfast, 15units Lunch, 18units Dinner. Check blood sugar four times daily, and report readings to our office. documented in this encounter* Patient Instructions* Marianela Fowler CNP - 05/05/2019 1:57 PM EDT Please continue take all medications as ordered. documented in this encounter* Patient Instructions* Marianela Fowler CNP - 11/22/2019 2:06 PM EDT Please continue take all medications as ordered. documented in this encounter* Patient Instructions* Marianela Fowler CNP - 11/28/2019 5:49 PM EDT Please continue take all medications as ordered. Learning About High Blood Pressure What is high blood pressure? Blood pressure is a measure of how hard the blood pushes against the simms of your arteries. It's normal for blood pressure to go up and down throughout the day, but if it stays up, you have high blood pressure. Another name for high blood pressure is hypertension. Two numbers tell you your blood pressure. The first number is the systolic pressure. It shows how hard the blood pushes when your heart is pumping. The second number is the diastolic pressure. It shows how hard the blood pushes between heartbeats, when your heart is relaxed and filling with blood. Your doctor will give you a goal for your blood pressure. Your goal will be based on your health and your age. High blood pressure (hypertension) means that the top number stays high, or the bottom number stays high, or both. High blood pressure increases the risk of stroke, heart attack, and other problems. You and your doctor will talk about your risks of these problems based on your blood pressure. What happens when you have high blood pressure? Blood flows through your arteries with too much force. Over time, this damages the simms of your arteries. But you can't feel it. High blood pressure usually doesn't cause symptoms. Fat and calcium start to build up in your arteries. This buildup is called plaque. Plaque makes your arteries narrower and stiffer. Blood can't flow through them as easily. This lack of good blood flow starts to damage some of the organs in your body. This can lead to problems such as coronary artery disease and heart attack, heart failure, stroke, kidney failure, and eye damage. How can you prevent high blood pressure? Stay at a healthy weight. Try to limit how much sodium you eat to less than 2,300 milligrams (mg) a day. If you limit your sodium to 1,500 mg a day, you can lower your blood pressure even more. ? Buy foods that are labeled "unsalted," "sodium-free," or "low-sodium." Foods labeled "reduced-sodium" and "light sodium" may still have too much sodium. ? Flavor your food with garlic, lemon juice, onion, vinegar, herbs, and spices instead of salt. Do not use soy sauce, steak sauce, onion salt, garlic salt, mustard, or ketchup on your food. ? Use less salt (or none) when recipes call for it. You can often use half the salt a recipe calls for without losing flavor. Be physically active. Get at least 30 minutes of exercise on most days of the week. Walking is a good choice. You also may want to do other activities, such as running, swimming, cycling, or playing tennis or team sports. Limit alcohol to 2 drinks a day for men and 1 drink a day for women. Eat plenty of fruits, vegetables, and low-fat dairy products. Eat less saturated and total fats. How is high blood pressure treated? Your doctor will suggest making lifestyle changes to help your heart. For example, your doctor may ask you to eat healthy foods, quit smoking, lose extra weight, and be more active. If lifestyle changes don't help enough, your doctor may recommend that you take medicine. When blood pressure is very high, medicines are needed to lower it. Follow-up care is a tran part of your treatment and safety. Be sure to make and go to all appointments, and call your doctor if you are having problems. It's also a good idea to know your test resultsand keep a list of the medicines you take. Where can you learn more? Log into your personal health record on [email or web address] and enter P501 in the "Education" box to learn more about "Learning About High Blood Pressure." Current as of: December 21, 2018 Content Version: 12.3 6811-3755 [employer]. Care instructions adapted under license by your healthcare professional. If you have questions about a medical condition or this instruction, always ask your healthcare professional. [employer] disclaims any warranty or liability for your use of this information. DASH Diet: Care Instructions Your Care Instructions The DASH diet is an eating plan that can help lower your blood pressure. DASH stands for Dietary Approaches to Stop Hypertension. Hypertension is high blood pressure. The DASH diet focuses on eating foods that are high in calcium, potassium, and magnesium. These nutrients can lower blood pressure. The foods that are highest in these nutrients are fruits, vegetables, low-fat dairy products, nuts, seeds, and legumes. But taking calcium, potassium, and magnesium supplements instead of eating foods that are high in those nutrients does not have the same effect. The DASH diet also includes whole grains, fish, and poultry. The DASH diet is one of several lifestyle changes your doctor may recommend to lower your high blood pressure. Your doctor may also want you to decrease the amount of sodium in your diet. Lowering sodium while following the DASH diet can lower blood pressure even further than just the DASH diet alone. Follow-up care is a tran part of your treatment and safety. Be sure to make and go to all appointments, and call your doctor if you are having problems. It's also a good idea to know your test resultsand keep a list of the medicines you take. How can you care for yourself at home? Following the DASH diet Eat 4 to 5 servings of fruit each day. A serving is 1 medium-sized piece of fruit, cup chopped or canned fruit, 1/4 cup dried fruit, or 4 ounces ( cup) of fruit juice. Choose fruit more often than fruit juice. Eat 4 to 5 servings of vegetables each day. A serving is 1 cup of lettuce or raw leafy vegetables, cup of chopped or cooked vegetables, or 4 ounces ( cup) of vegetable juice. Choose vegetables more often than vegetable juice. Get 2 to 3 servings of low-fat and fat-free dairy each day. A serving is 8 ounces of milk, 1 cup ofyogurt, or 1 ounces of cheese. Eat 6 to 8 servings of grains each day. A serving is 1 slice of bread, 1 ounce of dry cereal, or cup of cooked rice, pasta, or cooked cereal. Try to choose whole-grain products as much as possible. Limit lean meat, poultry, and fish to 2 servings each day. A serving is 3 ounces, about the size ofa deck of cards. Eat 4 to 5 servings of nuts, seeds, and legumes (cooked dried beans, lentils, and split peas) each week. A serving is 1/3 cup of nuts, 2 tablespoons of seeds, or cup of cooked beans or peas. Limit fats and oils to 2 to 3 servings each day. A serving is 1 teaspoon of vegetable oil or 2 tablespoons of salad dressing. Limit sweets and added sugars to 5 servings or less a week. A serving is 1 tablespoon jelly or jam,cup sorbet, or 1 cup of lemonade. Eat less than 2,300 milligrams (mg) of sodium a day. If you limit your sodium to 1,500 mg a day, you can lower your blood pressure even more. Tips for success Start small. Do not try to make dramatic changes to your diet all at once. You might feel that you are missing out on your favorite foods and then be more likely to not follow the plan. Make small changes, and stick with them. Once those changes become habit, add a few more changes. Try some of the following: ? Make it a goal to eat a fruit or vegetable at every meal and at snacks. This will make it easy toget the recommended amount of fruits and vegetables each day. ? Try yogurt topped with fruit and nuts for a snack or healthy dessert. ? Add lettuce, tomato, cucumber, and onion to sandwiches. ? Combine a ready-made pizza crust with low-fat mozzarella cheese and lots of vegetable toppings. Try using tomatoes, squash, spinach, broccoli, carrots, cauliflower, and onions. ? Have a variety of cut-up vegetables with a low-fat dip as an appetizer instead of chips and dip. ? Sprinkle sunflower seeds or chopped almonds over salads. Or try adding chopped walnuts or almondsto cooked vegetables. ? Try some vegetarian meals using beans and peas. Add garbanzo or kidney beans to salads. Make burritos and tacos with mashed buckley beans or black beans. Where can you learn more? Log into your personal health record on [email or web address] and enter H967 in the "Education" box to learn more about "DASH Diet: Care Instructions." Current as of: December 21, 2018 Content Version: 12.3 0172-5440 [employer]. Care instructions adapted under license by your healthcare professional. If you have questions about a medical condition or this instruction, always ask your healthcare professional. [employer] disclaims any warranty or liability for your use of this information. documented in this encounter* Patient Instructions* Marianela Fowler CNP - 03/06/2020 2:25 PM EDT Anxiety Disorder: Care Instructions Your Care Instructions Anxiety is a normal reaction to stress. Difficult situations can cause you to have symptoms such assweaty palms and a nervous feeling. In an anxiety disorder, the symptoms are far more severe. Constant worry, muscle tension, trouble sleeping, nausea and diarrhea, and other symptoms can make normal daily activities difficult or impossible. These symptoms may occur for no reason, and they can affect your work, school, or social life. Medicines, counseling, and self-care can all help. Follow-up care is a tran part of your treatment and safety. Be sure to make and go to all appointments, and call your doctor if you are having problems. It's also a good idea to know your test resultsand keep a list of the medicines you take. How can you care for yourself at home? Take medicines exactly as directed. Call your doctor if you think you are having a problem with your medicine. Go to your counseling sessions and follow-up appointments. Recognize and accept your anxiety. Then, when you are in a situation that makes you anxious, say neil, "This is not an emergency. I feel uncomfortable, but I am not in danger. I can keep goingeven if I feel anxious." Be kind to your body: ? Relieve tension with exercise or a massage. ? Get enough rest. ? Avoid alcohol, caffeine, nicotine, and illegal drugs. They can increase your anxiety level and cause sleep problems. ? Learn and do relaxation techniques. See below for more about these techniques. Engage your mind. Get out and do something you enjoy. Go to a fun[employer]lectica movie, or take a walk or hike. Plan your day. Having too much or too little to do can make you anxious. Keep a record of your symptoms. Discuss your fears with a good friend or family member, or join a support group for people with similar problems. Talking to others sometimes relieves stress. Get involved in social groups, or volunteer to help others. Being alone sometimes makes things seemworse than they are. Get at least 30 minutes of exercise on most days of the week to relieve stress. Walking is a good choice. You also may want to do other activities, such as running, swimming, cycling, or playing tennis or team sports. Relaxation techniques Do relaxation exercises 10 to 20 minutes a day. You can play soothing, relaxing music while you do them, if you wish. Tell others in your house that you are going to do your relaxation exercises. Ask them not to disturb you. Find a comfortable place, away from all distractions and noise. Lie down on your back, or sit with your back straight. Focus on your breathing. Make it slow and steady. Breathe in through your nose. Breathe out through either your nose or mouth. Breathe deeply, filling up the area between your navel and your rib cage. Breathe so that your belly goes up and down. Do not hold your breath. Breathe like this for 5 to 10 minutes. Notice the feeling of calmness throughout your whole body. As you continue to breathe slowly and deeply, relax by doing the following for another 5 to 10 minutes: Tighten and relax each muscle group in your body. You can begin at your toes and work your way up to your head. Imagine your muscle groups relaxing and becoming heavy. Empty your mind of all thoughts. Let yourself relax more and more deeply. Become aware of the state of calmness that surrounds you. When your relaxation time is over, you can bring yourself back to alertness by moving your fingers and toes and then your hands and feet and then stretching and moving your entire body. Sometimes people fall asleep during relaxation, but they usually wake up shortly afterward. Always give yourself time to return to full alertness before you drive a car or do anything that might cause an accident if you are not fully alert. Never play a relaxation tape while you drive a car. When should you call for help? Call 911 anytime you think you may need emergency care. For example, call if: You feel you cannot stop from hurting yourself or someone else. Keep the numbers for these national suicide hotlines: 8-420-160-TALK ( ) and 4-866-ABQWYRJ ( ). If you or someone you know talks about suicide or feeling hopeless, get help right away. Watch closely for changes in your health, and be sure to contact your doctor if: You have anxiety or fear that affects your life. You have symptoms of anxiety that are new or different from those you had before. Where can you learn more? Log into your personal health record on [email or web address] [email or web address] and enter P754 in the "Education" box to learn more about "Anxiety Disorder: Care Instructions." Current as of: February 08, 2019 Content Version: 12. [employer]. Care instructions adapted under license by your healthcare professional. If you have questions about a medical condition or this instruction, always ask your healthcare professional. [employer] disclaims any warranty or liability for your use of this information. High Blood Pressure: Care Instructions Overview It's normal for blood pressure to go up and down throughout the day. But if it stays up, you have high blood pressure. Another name for high blood pressure is hypertension. Despite what a lot of people think, high blood pressure usually doesn't cause headaches or make youfeel dizzy or lightheaded. It usually has no symptoms. But it does increase your risk of stroke, heart attack, and other problems. You and your doctor will talk about your risks of these problems based on your blood pressure. Your doctor will give you a goal for your blood pressure. Your goal will be based on your health and your age. Lifestyle changes, such as eating healthy and being active, are always important to help lower blood pressure. You might also take medicine to reach your blood pressure goal. Follow-up care is a tran part of your treatment and safety. Be sure to make and go to all appointments, and call your doctor if you are having problems. It's also a good idea to know your test resultsand keep a list of the medicines you take. How can you care for yourself at home? Medical treatment If you stop taking your medicine, your blood pressure will go back up. You may take one or more types of medicine to lower your blood pressure. Be safe with medicines. Take your medicine exactly as prescribed. Call your doctor if you think you are having a problem with your medicine. Talk to your doctor before you start taking aspirin every day. Aspirin can help certain people lower their risk of a heart attack or stroke. But taking aspirin isn't right for everyone, because it can cause serious bleeding. See your doctor regularly. You may need to see the doctor more often at first or until your blood pressure comes down. If you are taking blood pressure medicine, talk to your doctor before you take decongestants or anti-inflammatory medicine, such as ibuprofen. Some of these medicines can raise blood pressure. Learn how to check your blood pressure at home. Lifestyle changes Stay at a healthy weight. This is especially important if you put on weight around the waist. Losing even 10 pounds can help you lower your blood pressure. If your doctor recommends it, get more exercise. Walking is a good choice. Bit by bit, increase theamount you walk every day. Try for at least 30 minutes on most days of the week. You also may want to swim, bike, or do other activities. Avoid or limit alcohol. Talk to your doctor about whether you can drink any alcohol. Try to limit how much sodium you eat to less than 2,300 milligrams (mg) a day. Your doctor may ask you to try to eat less than 1,500 mg a day. Eat plenty of fruits (such as bananas and oranges), vegetables, legumes, whole grains, and low-fat dairy products. Lower the amount of saturated fat in your diet. Saturated fat is found in animal products such as milk, cheese, and meat. Limiting these foods may help you lose weight and also lower your risk for heart disease. Do not smoke. Smoking increases your risk for heart attack and stroke. If you need help quitting, talk to your doctor about stop-smoking programs and medicines. These can increase your chances of quitting for good. When should you call for help? Call 911 anytime you think you may need emergency care. This may mean having symptoms that suggest that your blood pressure is causing a serious heart or blood vessel problem. Your blood pressure maybe over 180/120. For example, call 911 if: You have symptoms of a heart attack. These may include: ? Chest pain or pressure, or a strange feeling in the chest. ? Sweating. ? Shortness of breath. ? Nausea or vomiting. ? Pain, pressure, or a strange feeling in the back, neck, jaw, or upper belly or in one or both shoulders or arms. ? Lightheadedness or sudden weakness. ? A fast or irregular heartbeat. You have symptoms of a stroke. These may include: ? Sudden numbness, tingling, weakness, or loss of movement in your face, arm, or leg, especially ononly one side of your body. ? Sudden vision changes. ? Sudden trouble speaking. ? Sudden confusion or trouble understanding simple statements. ? Sudden problems with walking or balance. ? A sudden, severe headache that is different from past headaches. You have severe back or belly pain. Do not wait until your blood pressure comes down on its own. Get help right away. Call your doctor now or seek immediate care if: Your blood pressure is much higher than normal (such as 180/120 or higher), but you don't have symptoms. You think high blood pressure is causing symptoms, such as: ? Severe headache. ? Blurry vision. Watch closely for changes in your health, and be sure to contact your doctor if: Your blood pressure measures higher than your doctor recommends at least 2 times. That means the top number is higher or the bottom number is higher, or both. You think you may be having side effects from your blood pressure medicine. Where can you learn more? Log into your personal health record on [email or web address] and enter X567 in the "Education" box to learn more about "High Blood Pressure: Care Instructions." Current as of: December 21, 2018 Content Version: 12.3 3135-1427 [employer]. Care instructions adapted under license by your healthcare professional. If you have questions about a medical condition or this instruction, always ask your healthcare professional. [employer] disclaims any warranty or liability for your use of this information. documented in this encounter* Patient Instructions* Marianela Fowler CNP - 03/29/2020 10:34 AM EDT High Blood Pressure: Care Instructions Overview It's normal for blood pressure to go up and down throughout the day. But if it stays up, you have high blood pressure. Another name for high blood pressure is hypertension. Despite what a lot of people think, high blood pressure usually doesn't cause headaches or make youfeel dizzy or lightheaded. It usually has no symptoms. But it does increase your risk of stroke, heart attack, and other problems. You and your doctor will talk about your risks of these problems based on your blood pressure. Your doctor will give you a goal for your blood pressure. Your goal will be based on your health and your age. Lifestyle changes, such as eating healthy and being active, are always important to help lower blood pressure. You might also take medicine to reach your blood pressure goal. Follow-up care is a tran part of your treatment and safety. Be sure to make and go to all appointments, and call your doctor if you are having problems. It's also a good idea to know your test resultsand keep a list of the medicines you take. How can you care for yourself at home? Medical treatment If you stop taking your medicine, your blood pressure will go back up. You may take one or more types of medicine to lower your blood pressure. Be safe with medicines. Take your medicine exactly as prescribed. Call your doctor if you think you are having a problem with your medicine. Talk to your doctor before you start taking aspirin every day. Aspirin can help certain people lower their risk of a heart attack or stroke. But taking aspirin isn't right for everyone, because it can cause serious bleeding. See your doctor regularly. You may need to see the doctor more often at first or until your blood pressure comes down. If you are taking blood pressure medicine, talk to your doctor before you take decongestants or anti-inflammatory medicine, such as ibuprofen. Some of these medicines can raise blood pressure. Learn how to check your blood pressure at home. Lifestyle changes Stay at a healthy weight. This is especially important if you put on weight around the waist. Losing even 10 pounds can help you lower your blood pressure. If your doctor recommends it, get more exercise. Walking is a good choice. Bit by bit, increase theamount you walk every day. Try for at least 30 minutes on most days of the week. You also may want to swim, bike, or do other activities. Avoid or limit alcohol. Talk to your doctor about whether you can drink any alcohol. Try to limit how much sodium you eat to less than 2,300 milligrams (mg) a day. Your doctor may ask you to try to eat less than 1,500 mg a day. Eat plenty of fruits (such as bananas and oranges), vegetables, legumes, whole grains, and low-fat dairy products. Lower the amount of saturated fat in your diet. Saturated fat is found in animal products such as milk, cheese, and meat. Limiting these foods may help you lose weight and also lower your risk for heart disease. Do not smoke. Smoking increases your risk for heart attack and stroke. If you need help quitting, talk to your doctor about stop-smoking programs and medicines. These can increase your chances of quitting for good. When should you call for help? Call 911 anytime you think you may need emergency care. This may mean having symptoms that suggest that your blood pressure is causing a serious heart or blood vessel problem. Your blood pressure maybe over 180/120. For example, call 911 if: You have symptoms of a heart attack. These may include: ? Chest pain or pressure, or a strange feeling in the chest. ? Sweating. ? Shortness of breath. ? Nausea or vomiting. ? Pain, pressure, or a strange feeling in the back, neck, jaw, or upper belly or in one or both shoulders or arms. ? Lightheadedness or sudden weakness. ? A fast or irregular heartbeat. You have symptoms of a stroke. These may include: ? Sudden numbness, tingling, weakness, or loss of movement in your face, arm, or leg, especially ononly one side of your body. ? Sudden vision changes. ? Sudden trouble speaking. ? Sudden confusion or trouble understanding simple statements. ? Sudden problems with walking or balance. ? A sudden, severe headache that is different from past headaches. You have severe back or belly pain. Do not wait until your blood pressure comes down on its own. Get help right away. Call your doctor now or seek immediate care if: Your blood pressure is much higher than normal (such as 180/120 or higher), but you don't have symptoms. You think high blood pressure is causing symptoms, such as: ? Severe headache. ? Blurry vision. Watch closely for changes in your health, and be sure to contact your doctor if: Your blood pressure measures higher than your doctor recommends at least 2 times. That means the top number is higher or the bottom number is higher, or both. You think you may be having side effects from your blood pressure medicine. Where can you learn more? Log into your personal health record on [email or web address] and enter X567 in the "Education" box to learn more about "High Blood Pressure: Care Instructions." Current as of: August 29, 2019 Content Version: 12.5 8671-3814 [employer]. Care instructions adapted under license by your healthcare professional. If you have questions about a medical condition or this instruction, always ask your healthcare professional. [employer] disclaims any warranty or liability for your use of this information. Anxiety Disorder: Care Instructions Your Care Instructions Anxiety is a normal reaction to stress. Difficult situations can cause you to have symptoms such assweaty palms and a nervous feeling. In an anxiety disorder, the symptoms are far more severe. Constant worry, muscle tension, trouble sleeping, nausea and diarrhea, and other symptoms can make normal daily activities difficult or impossible. These symptoms may occur for no reason, and they can affect your work, school, or social life. Medicines, counseling, and self-care can all help. Follow-up care is a tran part of your treatment and safety. Be sure to make and go to all appointments, and call your doctor if you are having problems. It's also a good idea to know your test resultsand keep a list of the medicines you take. How can you care for yourself at home? Take medicines exactly as directed. Call your doctor if you think you are having a problem with your medicine. Go to your counseling sessions and follow-up appointments. Recognize and accept your anxiety. Then, when you are in a situation that makes you anxious, say neil, "This is not an emergency. I feel uncomfortable, but I am not in danger. I can keep goingeven if I feel anxious." Be kind to your body: ? Relieve tension with exercise or a massage. ? Get enough rest. ? Avoid alcohol, caffeine, nicotine, and illegal drugs. They can increase your anxiety level and cause sleep problems. ? Learn and do relaxation techniques. See below for more about these techniques. Engage your mind. Get out and do something you enjoy. Go to a fun[employer]lectica movie, or take a walk or hike. Plan your day. Having too much or too little to do can make you anxious. Keep a record of your symptoms. Discuss your fears with a good friend or family member, or join a support group for people with similar problems. Talking to others sometimes relieves stress. Get involved in social groups, or volunteer to help others. Being alone sometimes makes things seemworse than they are. Get at least 30 minutes of exercise on most days of the week to relieve stress. Walking is a good choice. You also may want to do other activities, such as running, swimming, cycling, or playing tennis or team sports. Relaxation techniques Do relaxation exercises 10 to 20 minutes a day. You can play soothing, relaxing music while you do them, if you wish. Tell others in your house that you are going to do your relaxation exercises. Ask them not to disturb you. Find a comfortable place, away from all distractions and noise. Lie down on your back, or sit with your back straight. Focus on your breathing. Make it slow and steady. Breathe in through your nose. Breathe out through either your nose or mouth. Breathe deeply, filling up the area between your navel and your rib cage. Breathe so that your belly goes up and down. Do not hold your breath. Breathe like this for 5 to 10 minutes. Notice the feeling of calmness throughout your whole body. As you continue to breathe slowly and deeply, relax by doing the following for another 5 to 10 minutes: Tighten and relax each muscle group in your body. You can begin at your toes and work your way up to your head. Imagine your muscle groups relaxing and becoming heavy. Empty your mind of all thoughts. Let yourself relax more and more deeply. Become aware of the state of calmness that surrounds you. When your relaxation time is over, you can bring yourself back to alertness by moving your fingers and toes and then your hands and feet and then stretching and moving your entire body. Sometimes people fall asleep during relaxation, but they usually wake up shortly afterward. Always give yourself time to return to full alertness before you drive a car or do anything that might cause an accident if you are not fully alert. Never play a relaxation tape while you drive a car. When should you call for help? [id number] anytime you think you may need emergency care. For example, call if: You feel you cannot stop from hurting yourself or someone else. Keep the numbers for these national suicide hotlines: 8-793-533-TALK ( ) and 3-775-PUKOLDQ ( ). If you or someone you know talks about suicide or feeling hopeless, get help right away. Watch closely for changes in your health, and be sure to contact your doctor if: You have anxiety or fear that affects your life. You have symptoms of anxiety that are new or different from those you had before. Where can you learn more? Log into your personal health record on [email or web address] and enter P754 in the "Education" box to learn more about "Anxiety Disorder: Care Instructions." Current as of: October 14, 2019 Content Version: 12.5 [employer]. Care instructions adapted under license by your healthcare professional. If you have questions about a medical condition or this instruction, always ask your healthcare professional. [employer] disclaims any warranty or liability for your use of this information. Depression Treatment: Care Instructions Your Care Instructions Depression is a condition that affects the way you feel, think, and act. It causes symptoms such aslow energy, loss of interest in daily activities, and sadness or grouchiness that goes on for a long time. Depression is very common and affects men and women of all ages. Depression is a medical illness caused by changes in the natural chemicals in your brain. It is nota character flaw, and it does not mean that you are a bad or weak person. It does not mean that youare going crazy. It is important to know that depression can be treated. Medicines, counseling, and self-care can all help. Many people do not get help because they are embarrassed or think that they will get over the depression on their own. But some people do not get better without treatment. Follow-up care is a tran part of your treatment and safety. Be sure to make and go to all appointments, and call your doctor if you are having problems. It's also a good idea to know your test resultsand keep a list of the medicines you take. How can you care for yourself at home? Learn about antidepressant medicines Antidepressant medicines can improve or end the symptoms of depression. You may need to take the medicine for at least 6 months, and often longer. Keep taking your medicine even if you feel better. If you stop taking it too soon, your symptoms may come back or get worse. You may start to feel better within 1 to 3 weeks of taking antidepressant medicine. But it can takeas many as 6 to 8 weeks to see more improvement. Talk to your doctor if you have problems with yourmedicine or if you do not notice any improvement after 3 weeks. Antidepressants can make you feel tired, dizzy, or nervous. Some people have dry mouth, constipation, headaches, sexual problems, an upset stomach, or diarrhea. Many of these side effects are mild and go away on their own after you take the medicine for a few weeks. Some may last longer. Talk to your doctor if side effects bother you too much. You might be able to try a different medicine. If youare or , talk to your doctor about what medicines you can take. Learn about counseling In many cases, counseling can work as well as medicines to treat mild to moderate depression. Counseling is done by licensed mental health providers, such as psychologists, social workers, and some types of nurses. It can be done in one-on-one sessions or in a group setting. Many people find group sessions helpful. Cognitive-behavioral therapy is a type of counseling. In this treatment therapy, you learn how to see and change unhelpful thinking styles that may be adding to your depression. Counseling and medicines often work well when used together. To manage depression Be physically active. Getting 30 minutes of exercise each day is good for your body and your mind. Begin slowly if it is hard for you to get started. If you already exercise, keep it up. Plan something pleasant for yourself every day. Include activities that you have enjoyed in the past. Get enough sleep. Talk to your doctor if you have problems sleeping. Eat a balanced diet. If you do not feel hungry, eat small snacks rather than large meals. Do not drink alcohol, use illegal drugs, or take medicines that your doctor has not prescribed for you. They may interfere with your treatment. Spend time with family and friends. It may help to speak openly about your depression with people you trust. Take your medicines exactly as prescribed. Call your doctor if you think you are having a problem with your medicine. Do not make major life decisions while you are depressed. Depression may change the way you think. You will be able to make better decisions after you feel better. Think positively. Challenge negative thoughts with statements such as "I am hopeful"; "Things will get better"; and "I can ask for the help I need." Write down these statements and read them often, even if you don't believe them yet. Be patient with yourself. It took time for your depression to develop, and it will take time for your symptoms to improve. Do not take on too much or be too hard on yourself. Learn all you can about depression from written and online materials. Check out behavioral health classes to learn more about dealing with depression. Keep the numbers for these national suicide hotlines: 6-813-928-TALK ( ) and 2-545-KNOQLPG ( ). If you or someone you know talks about suicide or feeling hopeless, get help right away. When should you call for help? [id number] anytime you think you may need emergency care. For example, call if: You feel you cannot stop from hurting yourself or someone else. Call your doctor now or seek immediate medical care if: You hear voices. You feel much more depressed. Watch closely for changes in your health, and be sure to contact your doctor if: You are having problems with your depression medicine. You are not getting better as expected. Where can you learn more? Log into your personal health record on [email or web address] and enter G693 in the "Education" box to learn more about "Depression Treatment: Care Instructions." Current as of: October 14, 2019 Content Version: 12.5 [employer]. Care instructions adapted under license by your healthcare professional. If you have questions about a medical condition or this instruction, always ask your healthcare professional. [employer] disclaims any warranty or liability for your use of this information. documented in this encounter* Patient Instructions* Marianela Fowler CNP - 09/17/2020 1:31 PM EST High Blood Pressure: Care Instructions Overview It's normal for blood pressure to go up and down throughout the day. But if it stays up, you have high blood pressure. Another name for high blood pressure is hypertension. Despite what a lot of people think, high blood pressure usually doesn't cause headaches or make youfeel dizzy or lightheaded. It usually has no symptoms. But it does increase your risk of stroke, heart attack, and other problems. You and your doctor will talk about your risks of these problems based on your blood pressure. Your doctor will give you a goal for your blood pressure. Your goal will be based on your health and your age. Lifestyle changes, such as eating healthy and being active, are always important to help lower blood pressure. You might also take medicine to reach your blood pressure goal. Follow-up care is a tran part of your treatment and safety. Be sure to make and go to all appointments, and call your doctor if you are having problems. It's also a good idea to know your test resultsand keep a list of the medicines you take. How can you care for yourself at home? Medical treatment If you stop taking your medicine, your blood pressure will go back up. You may take one or more types of medicine to lower your blood pressure. Be safe with medicines. Take your medicine exactly as prescribed. Call your doctor if you think you are having a problem with your medicine. Talk to your doctor before you start taking aspirin every day. Aspirin can help certain people lower their risk of a heart attack or stroke. But taking aspirin isn't right for everyone, because it can cause serious bleeding. See your doctor regularly. You may need to see the doctor more often at first or until your blood pressure comes down. If you are taking blood pressure medicine, talk to your doctor before you take decongestants or anti-inflammatory medicine, such as ibuprofen. Some of these medicines can raise blood pressure. Learn how to check your blood pressure at home. Lifestyle changes Stay at a healthy weight. This is especially important if you put on weight around the waist. Losing even 10 pounds can help you lower your blood pressure. If your doctor recommends it, get more exercise. Walking is a good choice. Bit by bit, increase theamount you walk every day. Try for at least 30 minutes on most days of the week. You also may want to swim, bike, or do other activities. Avoid or limit alcohol. Talk to your doctor about whether you can drink any alcohol. Try to limit how much sodium you eat to less than 2,300 milligrams (mg) a day. Your doctor may ask you to try to eat less than 1,500 mg a day. Eat plenty of fruits (such as bananas and oranges), vegetables, legumes, whole grains, and low-fat dairy products. Lower the amount of saturated fat in your diet. Saturated fat is found in animal products such as milk, cheese, and meat. Limiting these foods may help you lose weight and also lower your risk for heart disease. Do not smoke. Smoking increases your risk for heart attack and stroke. If you need help quitting, talk to your doctor about stop-smoking programs and medicines. These can increase your chances of quitting for good. When should you call for help? Call 911 anytime you think you may need emergency care. This may mean having symptoms that suggest that your blood pressure is causing a serious heart or blood vessel problem. Your blood pressure maybe over 180/120. For example, call 911 if: You have symptoms of a heart attack. These may include: ? Chest pain or pressure, or a strange feeling in the chest. ? Sweating. ? Shortness of breath. ? Nausea or vomiting. ? Pain, pressure, or a strange feeling in the back, neck, jaw, or upper belly or in one or both shoulders or arms. ? Lightheadedness or sudden weakness. ? A fast or irregular heartbeat. You have symptoms of a stroke. These may include: ? Sudden numbness, tingling, weakness, or loss of movement in your face, arm, or leg, especially ononly one side of your body. ? Sudden vision changes. ? Sudden trouble speaking. ? Sudden confusion or trouble understanding simple statements. ? Sudden problems with walking or balance. ? A sudden, severe headache that is different from past headaches. You have severe back or belly pain. Do not wait until your blood pressure comes down on its own. Get help right away. Call your doctor now or seek immediate care if: Your blood pressure is much higher than normal (such as 180/120 or higher), but you don't have symptoms. You think high blood pressure is causing symptoms, such as: ? Severe headache. ? Blurry vision. Watch closely for changes in your health, and be sure to contact your doctor if: Your blood pressure measures higher than your doctor recommends at least 2 times. That means the top number is higher or the bottom number is higher, or both. You think you may be having side effects from your blood pressure medicine. Where can you learn more? Log into your personal health record on [email or web address] and enter X567 in the "Education" box to learn more about "High Blood Pressure: Care Instructions." Current as of: May 14, 2020 Content Version: 12.7 [employer]. Care instructions adapted under license by your healthcare professional. If you have questions about a medical condition or this instruction, always ask your healthcare professional. [employer] disclaims any warranty or liability for your use of this information. Fibromyalgia: Care Instructions Overview Fibromyalgia is a painful condition that is not completely understood by medical experts. The causeof fibromyalgia is not known. It can make you feel tired and ache all over. It causes tender spots at specific points of the body that hurt only when you press on them. You may have trouble sleeping,as well as other symptoms. These problems can upset your work and home life. Symptoms tend to come and go, although they may never go away completely. Fibromyalgia does not harm your muscles, joints, or organs. Follow-up care is a tran part of your treatment and safety. Be sure to make and go to all appointments, and call your doctor if you are having problems. It's also a good idea to know your test resultsand keep a list of the medicines you take. How can you care for yourself at home? Exercise often. Walk, swim, or bike to help with pain and sleep problems and to make you feel better. Try to get a good night's sleep. Go to bed and get up at the same time each day, whether you feel rested or not. Make sure you have a good mattress and pillow. Reduce stress. Avoid things that cause you stress, if you can. If not, work at making them less stressful. Learn to use biofeedback, guided imagery, meditation, or other methods to relax. Make healthy changes. Eat a balanced diet, quit smoking, and limit alcohol and caffeine. Use a heating pad set on low or take warm baths or showers for pain. Using cold packs for up to 20 minutes at a time can also relieve pain. Put a thin cloth between the cold pack and your skin. A gentle massage might help too. Be safe with medicines. Take your medicines exactly as prescribed. Call your doctor if you think you are having a problem with your medicine. Your doctor may talk to you about taking antidepressant medicines. These medicines may improve sleep, relieve pain, and in some cases treat depression. Learn about fibromyalgia. This makes coping easier. Then, take an active role in your treatment. Think about joining a support group with others who have fibromyalgia to learn more and get support. When should you call for help? Watch closely for changes in your health, and be sure to contact your doctor if: You feel sad, helpless, or hopeless; lose interest in things you used to enjoy; or have other symptoms of depression. Your fibromyalgia symptoms get worse. Where can you learn more? Log into your personal health record on [email or web address] and enter V003 in the "Education" box to learn more about "Fibromyalgia: Care Instructions." Current as of: April 17, 2020 Content Version: 12.7 [employer]. Care instructions adapted under license by your healthcare professional. If you have questions about a medical condition or this instruction, always ask your healthcare professional. [employer] disclaims any warranty or liability for your use of this information. documented in this encounter* Patient Instructions* Marianela Fowler CNP - 05/22/2020 12:27 PM EDT High Blood Pressure: Care Instructions Overview It's normal for blood pressure to go up and down throughout the day. But if it stays up, you have high blood pressure. Another name for high blood pressure is hypertension. Despite what a lot of people think, high blood pressure usually doesn't cause headaches or make youfeel dizzy or lightheaded. It usually has no symptoms. But it does increase your risk of stroke, heart attack, and other problems. You and your doctor will talk about your risks of these problems based on your blood pressure. Your doctor will give you a goal for your blood pressure. Your goal will be based on your health and your age. Lifestyle changes, such as eating healthy and being active, are always important to help lower blood pressure. You might also take medicine to reach your blood pressure goal. Follow-up care is a tran part of your treatment and safety. Be sure to make and go to all appointments, and call your doctor if you are having problems. It's also a good idea to know your test resultsand keep a list of the medicines you take. How can you care for yourself at home? Medical treatment If you stop taking your medicine, your blood pressure will go back up. You may take one or more types of medicine to lower your blood pressure. Be safe with medicines. Take your medicine exactly as prescribed. Call your doctor if you think you are having a problem with your medicine. Talk to your doctor before you start taking aspirin every day. Aspirin can help certain people lower their risk of a heart attack or stroke. But taking aspirin isn't right for everyone, because it can cause serious bleeding. See your doctor regularly. You may need to see the doctor more often at first or until your blood pressure comes down. If you are taking blood pressure medicine, talk to your doctor before you take decongestants or anti-inflammatory medicine, such as ibuprofen. Some of these medicines can raise blood pressure. Learn how to check your blood pressure at home. Lifestyle changes Stay at a healthy weight. This is especially important if you put on weight around the waist. Losing even 10 pounds can help you lower your blood pressure. If your doctor recommends it, get more exercise. Walking is a good choice. Bit by bit, increase theamount you walk every day. Try for at least 30 minutes on most days of the week. You also may want to swim, bike, or do other activities. Avoid or limit alcohol. Talk to your doctor about whether you can drink any alcohol. Try to limit how much sodium you eat to less than 2,300 milligrams (mg) a day. Your doctor may ask you to try to eat less than 1,500 mg a day. Eat plenty of fruits (such as bananas and oranges), vegetables, legumes, whole grains, and low-fat dairy products. Lower the amount of saturated fat in your diet. Saturated fat is found in animal products such as milk, cheese, and meat. Limiting these foods may help you lose weight and also lower your risk for heart disease. Do not smoke. Smoking increases your risk for heart attack and stroke. If you need help quitting, talk to your doctor about stop-smoking programs and medicines. These can increase your chances of quitting for good. When should you call for help? Call 911 anytime you think you may need emergency care. This may mean having symptoms that suggest that your blood pressure is causing a serious heart or blood vessel problem. Your blood pressure maybe over 180/120. For example, call 911 if: You have symptoms of a heart attack. These may include: ? Chest pain or pressure, or a strange feeling in the chest. ? Sweating. ? Shortness of breath. ? Nausea or vomiting. ? Pain, pressure, or a strange feeling in the back, neck, jaw, or upper belly or in one or both shoulders or arms. ? Lightheadedness or sudden weakness. ? A fast or irregular heartbeat. You have symptoms of a stroke. These may include: ? Sudden numbness, tingling, weakness, or loss of movement in your face, arm, or leg, especially ononly one side of your body. ? Sudden vision changes. ? Sudden trouble speaking. ? Sudden confusion or trouble understanding simple statements. ? Sudden problems with walking or balance. ? A sudden, severe headache that is different from past headaches. You have severe back or belly pain. Do not wait until your blood pressure comes down on its own. Get help right away. Call your doctor now or seek immediate care if: Your blood pressure is much higher than normal (such as 180/120 or higher), but you don't have symptoms. You think high blood pressure is causing symptoms, such as: ? Severe headache. ? Blurry vision. Watch closely for changes in your health, and be sure to contact your doctor if: Your blood pressure measures higher than your doctor recommends at least 2 times. That means the top number is higher or the bottom number is higher, or both. You think you may be having side effects from your blood pressure medicine. Where can you learn more? Log into your personal health record on [email or web address] and enter X567 in the "Education" box to learn more about "High Blood Pressure: Care Instructions." Current as of: August 29, 2019 Content Version: 12.5 [employer]. Care instructions adapted under license by your healthcare professional. If you have questions about a medical condition or this instruction, always ask your healthcare professional. [employer] disclaims any warranty or liability for your use of this information. Anxiety Disorder: Care Instructions Your Care Instructions Anxiety is a normal reaction to stress. Difficult situations can cause you to have symptoms such assweaty palms and a nervous feeling. In an anxiety disorder, the symptoms are far more severe. Constant worry, muscle tension, trouble sleeping, nausea and diarrhea, and other symptoms can make normal daily activities difficult or impossible. These symptoms may occur for no reason, and they can affect your work, school, or social life. Medicines, counseling, and self-care can all help. Follow-up care is a tran part of your treatment and safety. Be sure to make and go to all appointments, and call your doctor if you are having problems. It's also a good idea to know your test resultsand keep a list of the medicines you take. How can you care for yourself at home? Take medicines exactly as directed. Call your doctor if you think you are having a problem with your medicine. Go to your counseling sessions and follow-up appointments. Recognize and accept your anxiety. Then, when you are in a situation that makes you anxious, say neil, "This is not an emergency. I feel uncomfortable, but I am not in danger. I can keep goingeven if I feel anxious." Be kind to your body: ? Relieve tension with exercise or a massage. ? Get enough rest. ? Avoid alcohol, caffeine, nicotine, and illegal drugs. They can increase your anxiety level and cause sleep problems. ? Learn and do relaxation techniques. See below for more about these techniques. Engage your mind. Get out and do something you enjoy. Go to a funColectica movie, or take a walk or hike. Plan your day. Having too much or too little to do can make you anxious. Keep a record of your symptoms. Discuss your fears with a good friend or family member, or join a support group for people with similar problems. Talking to others sometimes relieves stress. Get involved in social groups, or volunteer to help others. Being alone sometimes makes things seemworse than they are. Get at least 30 minutes of exercise on most days of the week to relieve stress. Walking is a good choice. You also may want to do other activities, such as running, swimming, cycling, or playing tennis or team sports. Relaxation techniques Do relaxation exercises 10 to 20 minutes a day. You can play soothing, relaxing music while you do them, if you wish. Tell others in your house that you are going to do your relaxation exercises. Ask them not to disturb you. Find a comfortable place, away from all distractions and noise. Lie down on your back, or sit with your back straight. Focus on your breathing. Make it slow and steady. Breathe in through your nose. Breathe out through either your nose or mouth. Breathe deeply, filling up the area between your navel and your rib cage. Breathe so that your belly goes up and down. Do not hold your breath. Breathe like this for 5 to 10 minutes. Notice the feeling of calmness throughout your whole body. As you continue to breathe slowly and deeply, relax by doing the following for another 5 to 10 minutes: Tighten and relax each muscle group in your body. You can begin at your toes and work your way up to your head. Imagine your muscle groups relaxing and becoming heavy. Empty your mind of all thoughts. Let yourself relax more and more deeply. Become aware of the state of calmness that surrounds you. When your relaxation time is over, you can bring yourself back to alertness by moving your fingers and toes and then your hands and feet and then stretching and moving your entire body. Sometimes people fall asleep during relaxation, but they usually wake up shortly afterward. Always give yourself time to return to full alertness before you drive a car or do anything that might cause an accident if you are not fully alert. Never play a relaxation tape while you drive a car. When should you call for help? [id number] anytime you think you may need emergency care. For example, call if: You feel you cannot stop from hurting yourself or someone else. Keep the numbers for these national suicide hotlines: 3-775-253-TALK ( ) and 7-291-IKVAXDC ( ). If you or someone you know talks about suicide or feeling hopeless, get help right away. Watch closely for changes in your health, and be sure to contact your doctor if: You have anxiety or fear that affects your life. You have symptoms of anxiety that are new or different from those you had before. Where can you learn more? Log into your personal health record on [email or web address] and enter P754 in the "Education" box to learn more about "Anxiety Disorder: Care Instructions." Current as of: October 14, 2019 Content Version: 12.5 [employer]. Care instructions adapted under license by your healthcare professional. If you have questions about a medical condition or this instruction, always ask your healthcare professional. [employer] disclaims any warranty or liability for your use of this information. Depression Treatment: Care Instructions Your Care Instructions Depression is a condition that affects the way you feel, think, and act. It causes symptoms such aslow energy, loss of interest in daily activities, and sadness or grouchiness that goes on for a long time. Depression is very common and affects men and women of all ages. Depression is a medical illness caused by changes in the natural chemicals in your brain. It is nota character flaw, and it does not mean that you are a bad or weak person. It does not mean that youare going crazy. It is important to know that depression can be treated. Medicines, counseling, and self-care can all help. Many people do not get help because they are embarrassed or think that they will get over the depression on their own. But some people do not get better without treatment. Follow-up care is a tran part of your treatment and safety. Be sure to make and go to all appointments, and call your doctor if you are having problems. It's also a good idea to know your test resultsand keep a list of the medicines you take. How can you care for yourself at home? Learn about antidepressant medicines Antidepressant medicines can improve or end the symptoms of depression. You may need to take the medicine for at least 6 months, and often longer. Keep taking your medicine even if you feel better. If you stop taking it too soon, your symptoms may come back or get worse. You may start to feel better within 1 to 3 weeks of taking antidepressant medicine. But it can takeas many as 6 to 8 weeks to see more improvement. Talk to your doctor if you have problems with yourmedicine or if you do not notice any improvement after 3 weeks. Antidepressants can make you feel tired, dizzy, or nervous. Some people have dry mouth, constipation, headaches, sexual problems, an upset stomach, or diarrhea. Many of these side effects are mild and go away on their own after you take the medicine for a few weeks. Some may last longer. Talk to your doctor if side effects bother you too much. You might be able to try a different medicine. If youare or , talk to your doctor about what medicines you can take. Learn about counseling In many cases, counseling can work as well as medicines to treat mild to moderate depression. Counseling is done by licensed mental health providers, such as psychologists, social workers, and some types of nurses. It can be done in one-on-one sessions or in a group setting. Many people find group sessions helpful. Cognitive-behavioral therapy is a type of counseling. In this treatment therapy, you learn how to see and change unhelpful thinking styles that may be adding to your depression. Counseling and medicines often work well when used together. To manage depression Be physically active. Getting 30 minutes of exercise each day is good for your body and your mind. Begin slowly if it is hard for you to get started. If you already exercise, keep it up. Plan something pleasant for yourself every day. Include activities that you have enjoyed in the past. Get enough sleep. Talk to your doctor if you have problems sleeping. Eat a balanced diet. If you do not feel hungry, eat small snacks rather than large meals. Do not drink alcohol, use illegal drugs, or take medicines that your doctor has not prescribed for you. They may interfere with your treatment. Spend time with family and friends. It may help to speak openly about your depression with people you trust. Take your medicines exactly as prescribed. Call your doctor if you think you are having a problem with your medicine. Do not make major life decisions while you are depressed. Depression may change the way you think. You will be able to make better decisions after you feel better. Think positively. Challenge negative thoughts with statements such as "I am hopeful"; "Things will get better"; and "I can ask for the help I need." Write down these statements and read them often, even if you don't believe them yet. Be patient with yourself. It took time for your depression to develop, and it will take time for your symptoms to improve. Do not take on too much or be too hard on yourself. Learn all you can about depression from written and online materials. Check out behavioral health classes to learn more about dealing with depression. Keep the numbers for these national suicide hotlines: 8-760-441-TALK ( ) and 1-173-CXTCCHI ( ). If you or someone you know talks about suicide or feeling hopeless, get help right away. When should you call for help? [id number] anytime you think you may need emergency care. For example, call if: You feel you cannot stop from hurting yourself or someone else. Call your doctor now or seek immediate medical care if: You hear voices. You feel much more depressed. Watch closely for changes in your health, and be sure to contact your doctor if: You are having problems with your depression medicine. You are not getting better as expected. Where can you learn more? Log into your personal health record on [email or web address] and enter G693 in the "Education" box to learn more about "Depression Treatment: Care Instructions." Current as of: October 14, 2019 Content Version: 12.5 [employer]. Care instructions adapted under license by your healthcare professional. If you have questions about a medical condition or this instruction, always ask your healthcare professional. [employer] disclaims any warranty or liability for your use of this information. PET Scan: About This Test What is it? A PET scan is a test that uses a special type of camera and a radioactive substance called a "tracer" to look at organs in the body. PET stands for positron emission tomography. During the test, the tracer liquid is put into a vein in your arm. It moves through your body and collects in the specific organ or tissue, where it gives off tiny positively charged particles (positrons). The camera records the positrons and turns the recording into pictures on a computer. A computed tomography (CT) scan is often done at the same time as a PET scan. Why is this test done? A PET scan is often used to look for cancer and find heart and brain disorders. How do you prepare for the test? Tell your doctor ALL the medicines, vitamins, supplements, and herbal remedies you take. Some may increase the risk of problems during your test. Your doctor will tell you if you should stop taking any of them before the test and how soon to do it. Don't drink caffeine for 24 hours before a PET scan of your heart. Don't do any exercise or other strenuous activity for at least 48 hours before this test. Don't eat or drink (except water) for at least 6 hours before this test. If you are , you may want to pump enough breast milk before the test to get through 1 to 2 days of feeding. The radioactive tracer used in this test can get into your breast milk and is not good for the baby. Tell your doctor if you get nervous in tight spaces. You may get a medicine to help you relax. If you think you'll get this medicine, be sure you have someone to take you home. How is the test done? A radioactive tracer will be given in a vein (IV). You may need to wait 30 to 60 minutes for the tracer to move through your body. During this time, you will need to avoid moving and talking. You will lie on a table that is attached to a PET scanner. The table will pass slowly through the PET scanner, which is shaped like a doughnut. The scanner picks up signals from the tracer in your body. It is very important to lie still while each scan is being done. How long does the test take? The test will take 1 to 3 hours. How does having a PET scan feel? You will not feel pain during the test. The table you lie on may be hard and the room may be cool. It may be difficult to lie still during the test. You may feel a quick sting or pinch when the IV is put in your arm. The tracer is unlikely to causeany side effects. If you don't feel well during or after the test, tell the person who is doing thetest. You may feel nervous inside the PET scanner. What are the risks of a PET scan? Allergic reactions to the tracer are very rare. In rare cases, some soreness or swelling may develop at the IV site where the radioactive tracer was put in. Apply a moist, warm compress to your arm. Anytime you're exposed to radiation, there's a small chance of damage to cells or tissue. That's the case even with the low-level radioactive tracer used for this test. But the chance of damage is very low compared with the benefits of the test. What happens after the test? You will probably be able to go home right away. You can go back to your usual activities right away. In rare cases, some soreness or swelling may develop at the IV site where the radioactive tracer was put in. Apply a moist, warm compress to your arm. The radioactive tracer used in this test can get into your breast milk. Do not breastfeed your babyfor 1 or 2 days after this test. During this time, you can give your baby breast milk you stored before the test, or you can give formula. Discard the breast milk you pump in the 1 or 2 days after the test. Most of the tracer will leave your body through your urine or stool within a day. So be sure to flush the toilet right after you use it, and wash your hands well with soap and water. The amount of radiation in the tracer is very small. This means it isn't a risk for people to be around you after the test. After the test, drink lots of fluids for the next 24 hours to help flush the tracer out of your body. Follow-up care is a tran part of your treatment and safety. Be sure to make and go to all appointments, and call your doctor if you are having problems. It's also a good idea to keep a list of the medicines you take. Ask your doctor when you can expect to have your test results. Where can you learn more? Log into your personal health record on [email or web address] and enter Y672 in the "Education" box to learn more about "PET Scan: About This Test." Current as of: August 22, 2019 Content Version: 12.5 [employer]. Care instructions adapted under license by your healthcare professional. If you have questions about a medical condition or this instruction, always ask your healthcare professional. [employer] disclaims any warranty or liability for your use of this information. documented in this encounter* Patient Instructions* Marianela Fowler CNP - 08/25/2019 11:58 AM EST Today I replaced referral to specialty for evaluation/treatment. Their office will contact you to schedule an appointment. If you do not hear from their office in 5-7 business days please contact theoffice. Please continue take all medications as ordered. I discussed the side potential side effects of gabapentin to include mental slowing, confusion, sedation, fatigue, among others. I suggested that she not make important decisions while taking this medicine or operate a motor vehicle or heavy machinery while taking this medication. The medicine can potentiate the effects of alcohol, therefore alcohol should be avoided. This medicine is potentiallyaddicting and habit-forming and should be taken only as directed. documented in this encounter* Patient Instructions* Marianela Fowler CNP - 12/15/2020 10:37 PM EDT High Blood Pressure: Care Instructions Overview It's normal for blood pressure to go up and down throughout the day. But if it stays up, you have high blood pressure. Another name for high blood pressure is hypertension. Despite what a lot of people think, high blood pressure usually doesn't cause headaches or make youfeel dizzy or lightheaded. It usually has no symptoms. But it does increase your risk of stroke, heart attack, and other problems. You and your doctor will talk about your risks of these problems based on your blood pressure. Your doctor will give you a goal for your blood pressure. Your goal will be based on your health and your age. Lifestyle changes, such as eating healthy and being active, are always important to help lower blood pressure. You might also take medicine to reach your blood pressure goal. Follow-up care is a tran part of your treatment and safety. Be sure to make and go to all appointments, and call your doctor if you are having problems. It's also a good idea to know your test resultsand keep a list of the medicines you take. How can you care for yourself at home? Medical treatment If you stop taking your medicine, your blood pressure will go back up. You may take one or more types of medicine to lower your blood pressure. Be safe with medicines. Take your medicine exactly as prescribed. Call your doctor if you think you are having a problem with your medicine. Talk to your doctor before you start taking aspirin every day. Aspirin can help certain people lower their risk of a heart attack or stroke. But taking aspirin isn't right for everyone, because it can cause serious bleeding. See your doctor regularly. You may need to see the doctor more often at first or until your blood pressure comes down. If you are taking blood pressure medicine, talk to your doctor before you take decongestants or anti-inflammatory medicine, such as ibuprofen. Some of these medicines can raise blood pressure. Learn how to check your blood pressure at home. Lifestyle changes Stay at a healthy weight. This is especially important if you put on weight around the waist. Losing even 10 pounds can help you lower your blood pressure. If your doctor recommends it, get more exercise. Walking is a good choice. Bit by bit, increase theamount you walk every day. Try for at least 30 minutes on most days of the week. You also may want to swim, bike, or do other activities. Avoid or limit alcohol. Talk to your doctor about whether you can drink any alcohol. Try to limit how much sodium you eat to less than 2,300 milligrams (mg) a day. Your doctor may ask you to try to eat less than 1,500 mg a day. Eat plenty of fruits (such as bananas and oranges), vegetables, legumes, whole grains, and low-fat dairy products. Lower the amount of saturated fat in your diet. Saturated fat is found in animal products such as milk, cheese, and meat. Limiting these foods may help you lose weight and also lower your risk for heart disease. Do not smoke. Smoking increases your risk for heart attack and stroke. If you need help quitting, talk to your doctor about stop-smoking programs and medicines. These can increase your chances of quitting for good. When should you call for help? Call 911 anytime you think you may need emergency care. This may mean having symptoms that suggest that your blood pressure is causing a serious heart or blood vessel problem. Your blood pressure maybe over 180/120. For example, call 911 if: You have symptoms of a heart attack. These may include: ? Chest pain or pressure, or a strange feeling in the chest. ? Sweating. ? Shortness of breath. ? Nausea or vomiting. ? Pain, pressure, or a strange feeling in the back, neck, jaw, or upper belly or in one or both shoulders or arms. ? Lightheadedness or sudden weakness. ? A fast or irregular heartbeat. You have symptoms of a stroke. These may include: ? Sudden numbness, tingling, weakness, or loss of movement in your face, arm, or leg, especially ononly one side of your body. ? Sudden vision changes. ? Sudden trouble speaking. ? Sudden confusion or trouble understanding simple statements. ? Sudden problems with walking or balance. ? A sudden, severe headache that is different from past headaches. You have severe back or belly pain. Do not wait until your blood pressure comes down on its own. Get help right away. Call your doctor now or seek immediate care if: Your blood pressure is much higher than normal (such as 180/120 or higher), but you don't have symptoms. You think high blood pressure is causing symptoms, such as: ? Severe headache. ? Blurry vision. Watch closely for changes in your health, and be sure to contact your doctor if: Your blood pressure measures higher than your doctor recommends at least 2 times. That means the top number is higher or the bottom number is higher, or both. You think you may be having side effects from your blood pressure medicine. Where can you learn more? Log into your personal health record on [email or web address] and enter X567 in the "Education" box to learn more about "High Blood Pressure: Care Instructions." Current as of: May 14, 2020 Content Version: 12.8 [id number] [employer]. Care instructions adapted under license by your healthcare professional. If you have questions about a medical condition or this instruction, always ask your healthcare professional. [employer] disclaims any warranty or liability for your use of this information. Gastroesophageal Reflux Disease (GERD): Care Instructions Overview Gastroesophageal reflux disease (GERD) is the backward flow of stomach acid into the esophagus. Theesophagus is the tube that leads from your throat to your stomach. A one-way valve prevents the stomach acid from backing up into this tube. But when you have GERD, this valve does not close tightly enough. This can also cause pain and swelling in your esophagus. (This is called esophagitis.) If you have mild GERD symptoms including heartburn, you may be able to control the problem with antacids or bhad-ryk-hvmoqab medicine. You can also make lifestyle changes to help reduce your symptoms. These include changing your diet and eating habits, such as not eating late at night and losing weight. Follow-up care is a tran part of your treatment and safety. Be sure to make and go to all appointments, and call your doctor if you are having problems. It's also a good idea to know your test resultsand keep a list of the medicines you take. How can you care for yourself at home? Take your medicines exactly as prescribed. Call your doctor if you think you are having a problem with your medicine. Your doctor may recommend rgty-qhf-cithcfq medicine. For mild or occasional indigestion, antacids, such as Tums, Gaviscon, Mylanta, or Maalox, may help. Your doctor also may recommend dziy-wyi-xwhnvxs acid reducers, such as famotidine (Pepcid AC), cimetidine (Tagamet HB), or omeprazole (Prilosec). Read and follow all instructions on the label. If you use these medicines often, talk with your doctor. Change your eating habits. ? It's best to eat several small meals instead of two or three large meals. ? After you eat, wait 2 to 3 hours before you lie down. ? Chocolate, mint, and alcohol can make GERD worse. ? Spicy foods, foods that have a lot of acid (like tomatoes and oranges), and coffee can make GERD symptoms worse in some people. If your symptoms are worse after you eat a certain food, you may wantto stop eating that food to see if your symptoms get better. Do not smoke or chew tobacco. Smoking can make GERD worse. If you need help quitting, talk to your doctor about stop-smoking programs and medicines. These can increase your chances of quitting for good. If you have GERD symptoms at night, raise the head of your bed 6 to 8 inches by putting the frame on blocks or placing a foam wedge under the head of your mattress. (Adding extra pillows does not work.) Do not wear tight clothing around your middle. Lose weight if you need to. Losing just 5 to 10 pounds can help. When should you call for help? Call your doctor now or seek immediate medical care if: You have new or different belly pain. Your stools are black and tarlike or have streaks of blood. Watch closely for changes in your health, and be sure to contact your doctor if: Your symptoms have not improved after 2 days. Food seems to catch in your throat or chest. Where can you learn more? Log into your personal health record on [email or web address] and enter T927 in the "Education" box to learn more about "Gastroesophageal Reflux Disease (GERD): Care Instructions." Current as of: December 28, 2019 Content Version: 12.8 [employer]. Care instructions adapted under license by your healthcare professional. If you have questions about a medical condition or this instruction, always ask your healthcare professional. [employer] disclaims any warranty or liability for your use of this information. Fibromyalgia: Care Instructions Overview Fibromyalgia is a painful condition that is not completely understood by medical experts. The causeof fibromyalgia is not known. It can make you feel tired and ache all over. It causes tender spots at specific points of the body that hurt only when you press on them. You may have trouble sleeping,as well as other symptoms. These problems can upset your work and home life. Symptoms tend to come and go, although they may never go away completely. Fibromyalgia does not harm your muscles, joints, or organs. Follow-up care is a tran part of your treatment and safety. Be sure to make and go to all appointments, and call your doctor if you are having problems. It's also a good idea to know your test resultsand keep a list of the medicines you take. How can you care for yourself at home? Exercise often. Walk, swim, or bike to help with pain and sleep problems and to make you feel better. Try to get a good night's sleep. Go to bed and get up at the same time each day, whether you feel rested or not. Make sure you have a good mattress and pillow. Reduce stress. Avoid things that cause you stress, if you can. If not, work at making them less stressful. Learn to use biofeedback, guided imagery, meditation, or other methods to relax. Make healthy changes. Eat a balanced diet, quit smoking, and limit alcohol and caffeine. Use a heating pad set on low or take warm baths or showers for pain. Using cold packs for up to 20 minutes at a time can also relieve pain. Put a thin cloth between the cold pack and your skin. A gentle massage might help too. Be safe with medicines. Take your medicines exactly as prescribed. Call your doctor if you think you are having a problem with your medicine. Your doctor may talk to you about taking antidepressant medicines. These medicines may improve sleep, relieve pain, and in some cases treat depression. Learn about fibromyalgia. This makes coping easier. Then, take an active role in your treatment. Think about joining a support group with others who have fibromyalgia to learn more and get support. When should you call for help? Watch closely for changes in your health, and be sure to contact your doctor if: You feel sad, helpless, or hopeless; lose interest in things you used to enjoy; or have other symptoms of depression. Your fibromyalgia symptoms get worse. Where can you learn more? Log into your personal health record on [email or web address] and enter V003 in the "Education" box to learn more about "Fibromyalgia: Care Instructions." Current as of: April 17, 2020 Content Version: 12.8 [employer]. Care instructions adapted under license by your healthcare professional. If you have questions about a medical condition or this instruction, always ask your healthcare professional. [employer] disclaims any warranty or liability for your use of this information. documented in this encounter Summary Purpose Family History No Family History Records FoundNo Family History Records FoundNo Family History Records FoundNo Family History Records FoundNo Family History Records FoundNo Family History Records FoundNo Family History Records FoundNo Family History Records FoundNo Family History Records FoundNo Family History Records FoundNo Family History Records FoundNo Family History Records FoundNo Family History Records FoundNo Family History Records Found Advance Directives No Advanced Directives Records FoundDocuments on File Type Date Recorded Patient Group Underwriter Expl anation Advance Directives and Livin g Will 12/17/2018 11:42 AM Documents on File Type Date Recorded Patient Group Underwriter Expl anation Advance Directives and Livin g Will 02/27/2019 8:19 PM Documents on File Type Date Recorded Patient Group Underwriter Expl anation Advance Directives and Livin g Will 04/19/2019 2:30 AM Documents on File Type Date Recorded Patient Group Underwriter Expl anation Advance Directives and Livin g Will 05/11/2019 3:36 PM Documents on File Type Date Recorded Patient Group Underwriter Expl anation Advance Directives and Livin g Will 05/11/2019 3:36 PM Documents on File Type Date Recorded Patient Group Underwriter Expl anation Advance Directives and Livin g Will 08/08/2019 3:36 PM Documents on File Type Date Recorded Patient Group Underwriter Expl anation Advance Directives and Livin g Will 08/08/2019 3:36 PM Documents on File Type Date Recorded Patient Group Underwriter Expl anation Advance Directives and Livin g Will 01/12/2020 10:55 AM Documents on File Type Date Recorded Patient Group Underwriter Expl anation Advance Directives and Livin g Will 01/25/2020 11:32 AM Documents on File Type Date Recorded Patient Group Underwriter Expl anation Advance Directives and Livin g Will 01/25/2020 11:32 AM Documents on File Type Date Recorded Patient Group Underwriter Expl anation Advance Directives and Livin g Will 03/08/2020 5:35 PM Documents on File Type Date Recorded Patient Group Underwriter Expl anation Advance Directives and Livin g Will 03/08/2020 5:35 PM Documents on File Type Date Recorded Patient Group Underwriter Expl anation Advance Directives and Livin g Will 04/27/2020 12:00 AM Documents on File Type Date Recorded Patient Group Underwriter Expl anation Advance Directives and Livin g Will 05/18/2020 10:38 AM Documents on File Type Date Recorded Patient Group Underwriter Expl anation Advance Directives and Livin g Will 05/30/2020 10:38 AM Documents on File Type Date Recorded Patient Group Underwriter Expl anation Advance Directives and Livin g Will 06/07/2020 10:38 AM Latest Code Status on File Code Status Date Activated Date Inactivated Comments Full Code 06/07/2020 11:47 AM 06/11/2020 4:33 PM Documents on File Type Date Recorded Patient Group Underwriter Expl anation Advance Directives and Livin g Will 06/07/2020 10:38 AM Latest Code Status on File Code Status Date Activated Date Inactivated Comments Full Code 06/07/2020 11:47 AM 06/11/2020 4:33 PM Documents on File Type Date Recorded Patient Group Underwriter Expl anation Advance Directives and Livin g Will 10/03/2020 12:00 AM Documents on File Type Date Recorded Patient Group Underwriter Expl anation Advance Directives and Livin g Will 09/30/2020 5:27 AM Documents on File Type Date Recorded Patient Group Underwriter Expl anation Advance Directives and Livin g Will 11/01/2020 10:09 PM Documents on File Type Date Recorded Patient Group Underwriter Expl anation Advance Directives and Livin g Will 11/01/2020 10:09 PM Latest Code Status on File Code Status Date Activated Date Inactivated Comments Full Code 06/07/2020 11:47 AM 06/11/2020 4:33 PM Latest Code Status on File Code Status Date Activated Date Inactivated Comments Full Code 06/07/2020 11:47 AM 06/11/2020 4:33 PM Date Activated Date Inactivated Comments 01/21/2024 10:24 AM 01/25/2024 10:39 PM Question Answer Comments Full Code Order Discussed With: Patient Date Activated Date Inactivated Comments 06/07/2020 11:47 AM 06/11/2020 4:33 PM Date Activated Date Inactivated Comments 01/21/2024 10:24 AM 01/25/2024 10:39 PM Question Answer Comments Full Code Order Discussed With: Patient History of Present Illness * Kristie Vera RN - 07/22/2018 3:39 PM EST Formatting of this note may be different from the original. Chronic Care follow up DM focus. No answer, LM Goals Reducing Risks Patient SPECIFICALLY identifies the Self Care Behavior Goal of Reducing Risks. Patient will MEASURE progress by: monitoring glucose, engagement in self care foot exam;; A1C <7; BS monitoring; Nutrition, Acitivity) Patient's goal will be ACHIEVED by implementing Resources provided: Handouts, electronic references). Barriers will be: Pt. Engagement, insurance barriers addressed by outreach and education Goal is REALISTIC as evidenced by Confidence level of: unsure 1 month to initiate TIMEFRAME for the goal is: 3 months in this encounter* Kary Lennon CNP - 08/02/2018 2:26 PM EST POST OP NOTE [facility] [address] ([address]) [facility] [address] [facility] [phone] Procedure date:05/10/2018 Juana Handy is a 53 y.o. female seen in the office today for follow up 12 weeks post op following L4-5 lumbar fusion with hardware. Incision:healing well, no significant drainage, no dehiscence, no significant erythemastaplesremoved. Pain:mild No signs of obvious infection. Neurovascular exam is grossly normal distally. Capillary refill <3 sec. No skin breakdown. Range of motion and strength satisfactory and 4/5. . Imaging: X-Rays: Office films, 2 Views lumbar hardware in acceptable position at L4 and L5 level. Restrictions;full duty, begin PT. Plan @No Follow-up on file. Kary Lennon CNP 08/02/2018 in this encounter* Linh Pat MD - 07/02/2017 3:36 PM EDT Formatting of this note may be different from the original. [facility] [address] ([address]) [facility] [address] [facility] [phone] Juana Handy is a 52 y.o. female being seen today, 07/02/17, Chief Complaint Patient presents with Lower Back - Pain [chief complaint] back pain HPI Dictation: [hpi] patient reportedly 6 months of chronic lower back pain of the buttocks but no radicular component. Early she did have thoracic pain as well but is not complaining about that on this visit. She has had previous x-rays and CT which does show evidence of degenerative disc disease and on plain film more pronounced at 5 1 and 2 3 as far as treatment is concerned she is only had 2 therapy sessions she also has a history of fibromyalgia reports that she is on Cymbalta gabapentin and meloxicam. Tt most activities of daily living seem to be aggravating Physical Exam Dictation: [PE] bar flexion extension restricted with more pain with lumbar extension she can rise up on heelsand toes equally negative straight leg raising bilaterally patellar and Achilles reflexes are symmetrically diminished Assessment and Plan Dictation: [AP] medic lumbar degenerative disc disease no evidence of radiculopathy plan I will see her back when she finishes her physical therapy typically 18 sessions required prior to MRI be authorized through insurance if not improved at the end of that time will consider MRI I have reviewed all relevant histories, medications, allergies, and problem list items with Juana Handy during this visit. Review of Systems Constitutional: Negative for appetite change, fatigue and fever. HENT: Negative for sore throat and trouble swallowing. Respiratory: Negative for chest tightness and shortness of breath. Cardiovascular: Negative. Negative for chest pain and palpitations. Gastrointestinal: Negative for nausea and vomiting. Endocrine: Negative. Genitourinary: Negative. Skin: Negative. Allergic/Immunologic: Negative. Neurological: Negative. Negative for light-headedness and headaches. Hematological: Negative. Psychiatric/Behavioral: Negative for agitation and confusion. BP (!) 143/84 Pulse 69 Resp (!) 20 Ht 5' 4" Wt 112.9 kg (249 lb) BMI 42.74 kg/m2 Imaging: No results found. SNOMED CT(R) 1. Lumbar degenerative disc disease DEGENERATION OF LUMBAR INTERVERTEBRAL DISC 2. Thoracic back pain, unspecified back pain laterality, unspecified chronicity THORACIC BACK PAIN Ambulatory referral to Orthopedics Return in about 6 weeks (around 08/13/2017). Linh Pat MD in this encounter* Naomi Reece MD - 07/20/2018 11:34 AM EST Formatting of this note may be different from the original. Patient ID: Juana Handy is a 53 y.o. female Subjective: Juana Handy presents for follow-up of Type 2 diabetes Patient has had diabetes for 2 years. Diagnosed in: 2016 Patient has taken Insulin for 3 months. She was started on metformin and had GI symptoms, so was discontinued and started on glimepiride. Insulin was added when glimepiride was not controlling BG. She recently had lumbar back surgery with L 4-5 fusion with hardware. Currently taking: Glimepiride 2 mg twice daily Humalog insulin: 15 units at breakfast; 15 units at lunch; 15 units at supper Basaglar insulin: 40 units at bedtime Using Admaolog vials Current Outpatient Prescriptions Medication Sig Dispense Refill ALCOHOL PREP PADS PadM ammonium lactate (LAC-HYDRIN) 12 % lotion aspirin 81 MG EC tablet Take 81 mg by mouth daily. atorvastatin (LIPITOR) 40 MG tablet Take 1 (one) tablet (40 mg total) by mouth at bedtime. 30 tablet 5 blood sugar diagnostic strips Test up to 4 time per day. 200 each 5 blood-glucose meter Misc Check blood glucose 4 times daily. 1 each 0 cyclobenzaprine (FLEXERIL) 10 MG tablet Take 10 mg by mouth 3 (three) times a day as needed. DULoxetine (CYMBALTA) 60 MG capsule Take 1 (one) capsule (60 mg total) by mouth daily. 30 capsule 6 gabapentin (NEURONTIN) 600 MG tablet Take 1 (one) tablet (600 mg total) by mouth 3 (three) times a day. 90 tablet 5 glimepiride (AMARYL) 2 MG tablet Take 1 tablet PO BID. 60 tablet 5 insulin glargine (BASAGLAR KWIKPEN U-100 INSULIN) 100 unit/mL (3 mL) InPn Inject 40 (forty) Units under the skin nightly. 5 pen 5 insulin lispro (HumaLOG KwikPen Insulin) 100 unit/mL InPn Inject 15 (fifteen) Units under the skin 3 (three) times a day. (Patient taking differently: Inject 15 Units under the skin 3 (three) times aday Pt uses vials not pen.) 15 mL 5 insulin lispro (HumaLOG) 100 unit/mL injection Inject under the skin 3 (three) times a day before meals. lancets 23 gauge Misc Check blood glucose 4 times daily. 200 each 5 lisinopril (PRINIVIL,ZESTRIL) 20 MG tablet Take 1 (one) tablet (20 mg total) by mouth daily. 30 tablet 3 meloxicam (MOBIC) 15 MG tablet Take 1 (one) tablet (15 mg total) by mouth daily. 30 tablet 5 metoprolol tartrate (LOPRESSOR) 25 MG tablet Take 1/2 tablet by mouth twice a day. 30 tablet 11 pantoprazole (PROTONIX) 40 MG tablet Take 1 (one) tablet (40 mg total) by mouth daily. 30 tablet 11 pen needle, diabetic 31 gauge x 5/16" Ndle Use BID. 100 each 6 SURE COMFORT INSULIN SYRINGE 0.3 mL 31 gauge x 5/16 Syrg TRUE METRIX GLUCOSE TEST STRIP strips To test three to four times a day. 200 each 11 TRUEPLUS LANCETS 33 gauge Misc BD INSULIN SYRINGE HALF UNIT 0.3 mL 31 gauge x 5/16" Syrg liraglutide (VICTOZA 2-PUMA) 0.6 mg/0.1 mL (18 mg/3 mL) Pen Inject 1.2 mg under the skin daily. 6 mL5 No current facility-administered medications for this visit. Current Hemoglobin A1C= 9.9% today in office 07/20/18; BG 303 Lab Results Component Value Date HGBA1C 9.9 (A) 07/20/2018 Known diabetic complications: peripheral neuropathy Eye exam current (within one year): yes Weight trend: gained 20 lbs over past 6 months. Prior visit with flight security specialist: no Current diet: diabetic Current exercise: no regular exercise Current monitoring regimen: home blood tests - 3-4 times daily Home blood sugar records: fasting range: Any episodes of hypoglycemia? no Home blood sugar records:she did not bring to office Is patient on ROZ inhibitor or angiotensin II receptor dale? yes ROZ = Lisinopril Review of Systems: Review of Systems Constitutional: Negative for appetite change and fatigue. Eyes: Negative for visual disturbance. Respiratory: Negative for cough, chest tightness, shortness of breath and wheezing. Cardiovascular: Negative for chest pain, palpitations and leg swelling. Gastrointestinal: Negative for abdominal pain, constipation, diarrhea, nausea and vomiting. Endocrine: Negative for polydipsia, polyphagia and polyuria. Genitourinary: Negative for dysuria and frequency. Musculoskeletal: Negative for arthralgias, gait problem and myalgias. Neurological: Negative for weakness, numbness and headaches. The following portions of the patient's history were reviewed and updated as appropriate: allergies, current medications, past family history, past medical history, past social history, past surgicalhistory and problem list. Current Outpatient Prescriptions Medication Sig Dispense Refill ALCOHOL PREP PADS PadM ammonium lactate (LAC-HYDRIN) 12 % lotion aspirin 81 MG EC tablet Take 81 mg by mouth daily. atorvastatin (LIPITOR) 40 MG tablet Take 1 (one) tablet (40 mg total) by mouth at bedtime. 30 tablet 5 blood sugar diagnostic strips Test up to 4 time per day. 200 each 5 blood-glucose meter Misc Check blood glucose 4 times daily. 1 each 0 cyclobenzaprine (FLEXERIL) 10 MG tablet Take 10 mg by mouth 3 (three) times a day as needed. DULoxetine (CYMBALTA) 60 MG capsule Take 1 (one) capsule (60 mg total) by mouth daily. 30 capsule 6 gabapentin (NEURONTIN) 600 MG tablet Take 1 (one) tablet (600 mg total) by mouth 3 (three) times a day. 90 tablet 5 glimepiride (AMARYL) 2 MG tablet Take 1 tablet PO BID. 60 tablet 5 insulin glargine (BASAGLAR KWIKPEN U-100 INSULIN) 100 unit/mL (3 mL) InPn Inject 40 (forty) Units under the skin nightly. 5 pen 5 insulin lispro (HumaLOG KwikPen Insulin) 100 unit/mL InPn Inject 15 (fifteen) Units under the skin 3 (three) times a day. (Patient taking differently: Inject 15 Units under the skin 3 (three) times aday Pt uses vials not pen.) 15 mL 5 insulin lispro (HumaLOG) 100 unit/mL injection Inject under the skin 3 (three) times a day before meals. lancets 23 gauge Misc Check blood glucose 4 times daily. 200 each 5 lisinopril (PRINIVIL,ZESTRIL) 20 MG tablet Take 1 (one) tablet (20 mg total) by mouth daily. 30 tablet 3 meloxicam (MOBIC) 15 MG tablet Take 1 (one) tablet (15 mg total) by mouth daily. 30 tablet 5 metoprolol tartrate (LOPRESSOR) 25 MG tablet Take 1/2 tablet by mouth twice a day. 30 tablet 11 pantoprazole (PROTONIX) 40 MG tablet Take 1 (one) tablet (40 mg total) by mouth daily. 30 tablet 11 pen needle, diabetic 31 gauge x 5/16" Ndle Use BID. 100 each 6 SURE COMFORT INSULIN SYRINGE 0.3 mL 31 gauge x 5/16 Syrg TRUE METRIX GLUCOSE TEST STRIP strips To test three to four times a day. 200 each 11 TRUEPLUS LANCETS 33 gauge Misc BD INSULIN SYRINGE HALF UNIT 0.3 mL 31 gauge x 5/16" Syrg liraglutide (VICTOZA 2-PUMA) 0.6 mg/0.1 mL (18 mg/3 mL) Pen Inject 1.2 mg under the skin daily. 6 mL5 No current facility-administered medications for this visit. Past Medical History: Diagnosis Date Back pain L2,3,4,5 Chronic bronchitis (HCC) DDD (degenerative disc disease), lumbar Diabetes mellitus, type 2 (HCC) Diverticulitis 2001 Fibromyalgia, primary Hemorrhage 1991 surgery Herniated lumbar intervertebral disc L4-5 Hyperlipidemia Hypertension Neuropathy 10/17/91 Sciatica Past Surgical History: Procedure Laterality Date BREAST BIOPSY Left 10/12/2017 Stereo-proliferative fibrocystic changes and associated microcalcifications, focal pseudoangiomatous stromal hyperplasia CATARACT EXTRACTION, BILATERAL COLONOSCOPY 37 years old..Diverticulitis COLONOSCOPY 05/07/2017 diverticulosis, signle polyp in sigmoid, internal hermorrhoids...Dimitris DILATION AND CURETTAGE OF UTERUS for utreine bleeding Family History Problem Relation Age of Onset Lung cancer Father Heart failure Father Heart disease Father Diabetes Brother Heart disease Brother Bone cancer Maternal Grandmother Heart failure Maternal Grandmother Stroke Maternal Grandmother Cancer Half-Sister unknown cancer (mother in common) Heart disease Sister Diabetes Sister Mental illness Daughter Cancer Paternal Grandmother Social History Social History Marital status: Spouse name: N/A Number of children: N/A Years of education: N/A Occupational History Not on file. Social History Main Topics Smoking status: Never Smoker Smokeless tobacco: Never Used Alcohol use No Drug use: No Sexual activity: Not on file Other Topics Concern Not on file Social History Narrative No narrative on file Objective: BP 133/84 Pulse 73 Ht 5' 5" Wt 122.5 kg (270 lb) BMI 44.93 kg/m Wt Readings from Last 3 Encounters: 07/20/18 122.5 kg (270 lb) 07/09/18 120.7 kg (266 lb) 05/20/18 117.9 kg (260 lb) Physical Exam: Physical Exam General: alert, appears stated age and cooperative Eyes: conjunctivae/corneas clear. PERRL, EOM's intact. Neck: no adenopathy, supple, symmetrical, trachea midline and thyroid not enlarged, symmetric, no tenderness/mass/nodules Thyroid: no palpable nodule Lung: clear to auscultation bilaterally Heart: regular rate and rhythm, S1, S2 normal, no murmur, click, rub or gallop Abdomen: soft, non-tender; bowel sounds normal; no masses, no organomegaly Extremities: extremities normal, atraumatic, no cyanosis , + edema, plantar wart Skin: warm and dry, no hyperpigmentation, vitiligo, or suspicious lesions Right Foot: warm, good capillary refill Left Foot: warm, good capillary refill. Monofilament exam abnormal, bilateral lower extremities. Pulses: Dorsalis pulses 2+ and symmetric Neuro: normal without focal findings, mental status, speech normal, alert and oriented x3 and A[facility] Lab Review Creatinine (mg/dL) Date Value 04/19/2018 0.78 No results found for: CHOL, TRIG, HDL, LDLCALC No results found for: TSH Lab Results Component Value Date WBC 8.5 04/19/2018 HGB 9.0 (L) 05/13/2018 HCT 25.7 (L) 05/13/2018 PLT 316 04/19/2018 Date: 07/20/18 HgbA1c 9.9% in office today 02/24/18 HgbA1c 10.3% Assessment: Dx: SNOMED CT(R) 1. Type 2 diabetes mellitus with diabetic polyneuropathy, with long-term current use of insulin (HCC) TYPE 2 DIABETES MELLITUS POC Hemoglobin A1C Lipid Panel CBC and Differential Comprehensive Metabolic Panel External Lab Microalbumin/Creatinine T4, Free TSH Ambulatory referral to Diabetic Education Ambulatory referral to Nutrition Services 2. Hypercholesterolemia HYPERCHOLESTEROLEMIA Lipid Panel 3. Essential hypertension ESSENTIAL HYPERTENSION 4. Neuropathy involving both lower extremities NEUROPATHY OF LOWER LIMB Ambulatory referral to Podiatry 5. Uncontrolled type 2 diabetes mellitus with hyperglycemia, with long-term current use of insulin (HCC) TYPE II DIABETES MELLITUS UNCONTROLLED pen needle, diabetic 31 gauge x 5/16" Ndle Type 2 diabetes, under poor control Juana Handy presents for follow-up of Type 2 diabetes Patient is currently managed with: No oral hypoglycemic medications; Humalog insulin: 15 units at breakfast; 15 units at lunch; 15 units at supper Basaglar insulin: 40 units at bedtime Since starting insulin, her hemoglobin A1c has improved slightly. She has no blood glucose readingstoday. Plan at this time will be to refer for diabetic education basic instruction on dietary changes was given. We will continue current insulin doses and add Victoza 0.6 mg daily; increase to 1.2 mg daily after 1 week if tolerated. She is to check her blood sugars 4 times a day and report readings to the office for adjustment of her insulin doses. Hopefully as she recovers from her back surgeryshe will be able to resume more exercise. Retinopathy: Negative Exam within last 12 months: yes Date: spring 2017 Nephropathy: Negative Mialb/creat ratio: Will order Lab Results Component Value Date CREATININE 0.78 04/19/2018 Peripheral Neuropathy: Positive Left foot numb/tingling; right foot/leg weak, pain from hip to toesright leg; has had back surgery x 2 2017. Patient is on gabapentin 600 mg 3 times daily. Autonomic Neuropathy: Negative Aware of low BG Hyperlipidemia: Negative Currently taking: atorvastatin (Lipitor). LFT's WNL will check lipid panel Hypertension: Positive. Currently taking: lisinopril (Prinivil) and metoprolol (Lopressor, Toprol) BP: 133/84 Cardiac: Negative Denies Chest pain or SOB at this time. Had episode of chest pain in March 2018, admitted overnight; ETT normal one week later. Follows routinely with: Vascular: Positive edema; neg CVA Feet: Negative sores or lesions at this time. Last foot exam: 08/23/18. Sees Dr. Zuñiga for plantarwart right foot. No history of ulceration. Requests referral to podiatry due to persistent difficulty. Thyroid: Negative No results found for: TSH, [id number], [id number], THYROIDAB Plan: 1. Rx changes: Add Victoza No oral hypoglycemic medications Humalog insulin: 15 units at breakfast; 15 units at lunch; 15 units at supper Basaglar insulin: 40 units at bedtime Victoza 0.6 mg daily times 1 week, then increase to 1.2 mg daily. Sample pen given to patient 2. Education: Reviewed ABCs of diabetes management (respective goals in parentheses): A1C (7.0-8.0), blood pressure (<130/80), and cholesterol (LDL <100). 3. Compliance at present is estimated to be good. Efforts to improve compliance (if necessary) willbe directed at dietary modifications: Carb controlled diet and regular blood sugar monitorin times daily. 4. Follow up: 6 weeks 5. Record blood sugar readings as instructed. Call if BG consistently <70 or >250. [phone] 6. Bring blood sugar meter to follow up appointment. Orders Placed This Encounter Procedures Lipid Panel CBC and Differential Comprehensive Metabolic Panel External Lab Microalbumin/Creatinine T4, Free TSH Ambulatory referral to Diabetic Education Ambulatory referral to Nutrition Services POC Hemoglobin A1C EDUCATION: Greater than 50% of this initial visit was spent in general counseling regarding obesity, diet, exercise, importance of adherence to insulin regime, recognition and treatment of hypo and hyperglycemia, glucose logging, proper diabetes management, diabetic complications with poor management and the importance of glycemic control in order to avoid the complications of diabetes. Risks and potential complications of diabetes were reviewed with the patient. Diabetes health maintenance plan and follow-up were discussed and understood by the patient. We reviewed the importance of medication compliance and regular follow-up. Aggressive lifestyle modification was encouraged. in this encounter* Naomi Reece MD - 08/23/2018 1:26 PM EST Formatting of this note may be different from the original. Patient ID: Juana Handy is a 53 y.o. female 1965 Subjective: Juana Handy presents for follow-up of Type 2 diabetes Patient has had diabetes for 2 years. Diagnosed in 2016 Patient has taken Insulin for 4 months. Current Outpatient Prescriptions Medication Sig Dispense Refill ALCOHOL PREP PADS PadM ammonium lactate (LAC-HYDRIN) 12 % lotion aspirin 81 MG EC tablet Take 81 mg by mouth daily. atorvastatin (LIPITOR) 40 MG tablet Take 1 (one) tablet (40 mg total) by mouth at bedtime. 30 tablet 5 BD INSULIN SYRINGE HALF UNIT 0.3 mL 31 gauge x 5/16" Syrg blood sugar diagnostic strips Test up to 4 time per day. 200 each 5 blood-glucose meter [facility] Check blood glucose 4 times daily. 1 each 0 cyclobenzaprine (FLEXERIL) 10 MG tablet Take 10 mg by mouth 3 (three) times a day as needed. DULoxetine (CYMBALTA) 60 MG capsule Take 1 (one) capsule (60 mg total) by mouth daily. 30 capsule 6 gabapentin (NEURONTIN) 600 MG tablet Take 1 (one) tablet (600 mg total) by mouth 3 (three) times a day. 90 tablet 5 glimepiride (AMARYL) 2 MG tablet Take 1 tablet PO BID. 60 tablet 5 insulin glargine (BASAGLAR KWIKPEN U-100 INSULIN) 100 unit/mL (3 mL) InPn Inject 40 (forty) Units under the skin nightly. 5 pen 5 insulin lispro (HumaLOG KwikPen Insulin) 100 unit/mL InPn Inject 15 (fifteen) Units under the skin 3 (three) times a day. (Patient taking differently: Inject 15 Units under the skin 3 (three) times aday Pt uses vials not pen.) 15 mL 5 insulin lispro (HumaLOG) 100 unit/mL injection Inject under the skin 3 (three) times a day before meals. lancets 23 gauge Misc Check blood glucose 4 times daily. 200 each 5 liraglutide (VICTOZA 2-PUMA) 0.6 mg/0.1 mL (18 mg/3 mL) Pen Inject 1.2 mg under the skin daily. 6 mL5 lisinopril (PRINIVIL,ZESTRIL) 20 MG tablet Take 1 (one) tablet (20 mg total) by mouth daily. 30 tablet 3 meloxicam (MOBIC) 15 MG tablet Take 1 (one) tablet (15 mg total) by mouth daily. 30 tablet 5 metoprolol tartrate (LOPRESSOR) 25 MG tablet Take 1/2 tablet by mouth twice a day. 30 tablet 11 pantoprazole (PROTONIX) 40 MG tablet Take 1 (one) tablet (40 mg total) by mouth daily. 30 tablet 11 pen needle, diabetic 31 gauge x 5/16" Ndle Use BID. 100 each 6 SURE COMFORT INSULIN SYRINGE 0.3 mL 31 gauge x 5/16 Syrg TRUE METRIX GLUCOSE TEST STRIP strips To test three to four times a day. 200 each 11 TRUEPLUS LANCETS 33 gauge Misc No current facility-administered medications for this visit. Review of Systems: Review of Systems Constitutional: Negative for appetite change and fatigue. Eyes: Negative for visual disturbance. Respiratory: Negative for cough, chest tightness, shortness of breath and wheezing. Cardiovascular: Negative for chest pain, palpitations and leg swelling. Gastrointestinal: Negative for abdominal pain, constipation, diarrhea, nausea and vomiting. Endocrine: Negative for polydipsia, polyphagia and polyuria. Genitourinary: Negative for dysuria and frequency. Musculoskeletal: Positive for back pain and gait problem. Negative for arthralgias and myalgias. Neurological: Negative for weakness, numbness and headaches. The following portions of the patient's history were reviewed and updated as appropriate: allergies, current medications, past family history, past medical history, past social history, past surgicalhistory and problem list. Objective: BP (!) 143/91 Pulse 91 Ht 5' 5" Wt 120.2 kg (265 lb) BMI 44.10 kg/m Wt Readings from Last 3 Encounters: 08/23/18 120.2 kg (265 lb) 07/20/18 122.5 kg (270 lb) 07/09/18 120.7 kg (266 lb) Physical Exam: Physical Exam General: alert, appears stated age and cooperative Eyes: conjunctivae/corneas clear. PERRL, EOM's intact. Neck: no adenopathy, supple, symmetrical, trachea midline. Thyroid: No thyromegaly appreciated Lung: clear to auscultation bilaterally Heart: regular rate and rhythm, S1, S2 normal, no murmur, click, rub or gallop Extremities: extremities normal, atraumatic, no cyanosis or edema Feet: Dry skin, Bilateral Feet: normal DP. Monofilament exam abnormal, bilateral lower extremities. Neuro: normal without focal findings, mental status, speech normal, alert and oriented x3 and AYO Lab Review Lab Results Component Value Date HGBA1C 9.9 (A) 07/20/2018 Creatinine (mg/dL) Date Value 08/23/2018 0.87 No results found for: CHOL, TRIG, HDL, LDLCALC Lab Results Component Value Date TSH 2.83 08/23/2018 Lab Results Component Value Date WBC 9.7 08/23/2018 HGB 12.3 08/23/2018 HCT 37.0 08/23/2018 PLT 332 08/23/2018 Date: 08/23/18 Creatinine 0.87, sodium 138, potassium 4.1, estimated GFR greater than 60 AST 22, ALT 29 Total cholesterol 140, triglycerides 200, HDL 41, LDL 59 WBC 9.7, hemoglobin 12.3, hematocrit 37.0, platelet count 332,000 TSH 2.83, FT4--1.0 Microalbumin/creatinine ratio 13 07/20/18 HgbA1c 9.9% 02/24/18 HgbA1c 10.3% Assessment/Plan: Dx: No diagnosis found. Type 2 diabetes, under improving control Patient is currently managed with: Currently taking: Glimepiride 2 mg twice daily Humalog insulin: 15 units at breakfast; 15 units at lunch; 15 units at supper Basaglar insulin: 40 units at bedtime Victoza 1.2 mg daily Current Hemoglobin A1C= 9.9% in 07/20/18 Lab Results Component Value Date HGBA1C 9.9 (A) 07/20/2018 HGBA1C 10.3 (A) 02/24/2018 HGBA1C 10.2 (A) 11/26/2017 Weight trend: has decreased 5 lbs. Current diet: carb controlled, cut out regular sodas Current exercise: no regular exercise; going to start PT soon Current monitoring regimen: home blood tests - 4 times daily She forgot BG readings; Will send in; BG 181 today before lunch Home blood sugar records: Fasting BG Pre-lunch BG: Pre-supper BG: Bedtime BG: Any episodes of hypoglycemia? yes - had one episode of low BG with 102 after missing lunch NOTES: She has been doing better. She has made significant dietary changes, and has stopped drinking regular pop. She has been checking her blood sugars 4 times per day. She believes that the Victozahas helped her significantly. 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 yes Lisinopril Peripheral Neuropathy: Positive Reports bilateral numbness and tingling in feet; has numbness in right foot from back. Autonomic Neuropathy: Negative Hypoglycemia unawareness. Senses low BG at 100 mg/dl. Other: Hyperlipidemia: Negative Currently taking: atorvastatin (Lipitor). LFT's WNL 08/23/18 AST 22, ALT 29; Total cholesterol 140, triglycerides 200, HDL 41, LDL 59 Lab Results Component Value Date AST 22 08/23/2018 ALT 29 08/23/2018 Lab Results Component Value Date EXTCHOL 140 08/23/2018 EXTTRIG 200 (H) 08/23/2018 EXTHDL 41 08/23/2018 Hypertension: Positive. Currently taking: lisinopril (Prinivil) and metoprolol (Lopressor, Toprol) BP: (!) 143/91 Cardiac: Negative Experiencing chest pain no . Experiencing shortness of breath no History of No history of CAD and ETT normal 03/31 Follows routinely with: Vascular: Negative edema Feet: Positive; she has plantar wart left foot; sores or lesions at this time. Last foot exam: 08/23/18. Sees Dr. Zuñiga for foot care Thyroid: Negative 08/23/18 TSH 2.83, FT4--1.0 Other: Plan: 1. Rx changes: none Basaglar insulin: 40 units at bedtime Admelog 15 units TID ac Glimepiride 2 mg twice daily Victoza 1.2 mg daily 2. Education: Reviewed ABCs of diabetes management (respective goals in parentheses): A1C (7.0-8.0), blood pressure (<130/80), and cholesterol (LDL <100). 3. Compliance at present is estimated to be good. Efforts to improve compliance (if necessary) willbe directed at dietary modifications: carb controlled, no concentrated sugars and regular blood sugar monitorin times daily. 4. Follow up: 3 months 5. Record blood sugar readings as instructed. Call if BG consistently <70 or >250. [phone] Continue to check blood sugar 4 times daily. She has been checking blood glucoses because she is on 4 times daily insulin and assesses her bloodglucose before giving insulin dose. She has had some episodes of hypoglycemia. Her insulin doses will be adjusted based on her blood glucoses at her office appointments, when she brings her glucose readings to the office. Prognosis: Good Duration of need: Permanent 6. Bring blood sugar meter to follow up appointment. No orders of the defined types were placed in this encounter. Can check hemoglobin A1c in office at follow-up appointment Follow up 4 months. Electronically signed by Naomi Reece MD 08/29/18 4:10 PM in this encounter* Marianela Fowler, CORPORATE CONSULTANT - 11/14/2018 2:10 PM EST Subjective Patient ID: Juana Hadny is a 53 y.o. female. Patient presents the office today for follow-up of chronic conditions. Patient is doing well and has no complaints at this time. Patient does however complain of psychosocial issues which have caused[facility] [place] and she is not happy with this. Hypertension This is a chronic problem. The current episode started more than 1 year ago. The problem has been waxing and waning since onset. The problem is controlled. Associated symptoms include anxiety. Pertinent negatives include no blurred vision, chest pain, headaches, malaise/fatigue, neck pain, orthopnea, palpitations, peripheral edema, PND, shortness of breath or sweats. There are no associated agents to hypertension. Risk factors for coronary artery disease include family history, dyslipidemia, diabetes mellitus, obesity, post- menopausal state, sedentary lifestyle and stress. The current treatment provides significant improvement. Compliance problems include psychosocial issues. There is no history of chronic renal disease. Hyperlipidemia This is a chronic problem. The current episode started more than 1 year ago. The problem is controlled. Recent lipid tests were reviewed and are variable. She has no history of chronic renal disease,diabetes, liver disease or nephrotic syndrome. Pertinent negatives include no chest pain, focal sensory loss, focal weakness, leg pain, myalgias or shortness of breath. Current antihyperlipidemic treatment includes statins. The current treatment provides significant improvement of lipids. Compliance problems include adherence to exercise, adherence to diet and psychosocial issues. Gastroesophageal Reflux She reports no abdominal pain, no belching, no chest pain, no choking, no coughing, no dysphagia, no early satiety, no globus sensation, no heartburn, no hoarse voice, no nausea, no sore throat, no stridor, no tooth decay, no water brash or no wheezing. This is a chronic problem. The current episode started more than 1 year ago. The problem occurs rarely. The problem has been waxing and waning. Pertinent negatives include no anemia, fatigue, melena, muscle weakness, orthopnea or weight loss. She has tried a PPI for the symptoms. The treatment provided significant relief. Review of Systems Constitutional: Negative for activity change, appetite change, fatigue, malaise/fatigue and weight loss. HENT: Negative for hoarse voice and sore throat. Eyes: Negative for blurred vision. Respiratory: Negative for cough, choking, shortness of breath and wheezing. Cardiovascular: Negative for chest pain, palpitations, orthopnea and PND. Gastrointestinal: Negative for abdominal pain, dysphagia, heartburn, melena and nausea. Musculoskeletal: Negative for myalgias, muscle weakness and neck pain. Neurological: Negative for dizziness, focal weakness, facial asymmetry, light- headedness and headaches. Psychiatric/Behavioral: Negative for agitation. The patient is not nervous/anxious. Objective Physical Exam Constitutional: She is oriented to person, place, and time. Vital signs are normal. She appears well-developed and well-nourished. HENT: Head: Normocephalic. Right Ear: External ear normal. Left Ear: External ear normal. Cardiovascular: Normal rate, regular rhythm and normal heart sounds. Pulmonary/Chest: Effort normal and breath sounds normal. Musculoskeletal: Normal range of motion. Neurological: She is alert and oriented to person, place, and time. Skin: Skin is warm and dry. Psychiatric: She has a normal mood and affect. Her speech is normal and behavior is normal. Judgment and thought content normal. Cognition and memory are normal. Vitals reviewed. Assessment/Plan: Diagnoses and all orders for this visit: Encounter for hepatitis C screening test for low risk patient - Hepatitis C Antibody; Future Immunization due - Influenza IIV4 3yo or >,Fluzone Quad Hyperlipidemia, unspecified hyperlipidemia type - atorvastatin (LIPITOR) 40 MG tablet; Take 1 (one) tablet (40 mg total) by mouth at bedtime . Fibromyalgia - DULoxetine (CYMBALTA) 60 MG capsule; Take 1 (one) capsule (60 mg total) by mouth daily . - gabapentin (NEURONTIN) 600 MG tablet; Take 1 (one) tablet (600 mg total) by mouth 3 (three) timesa day . - meloxicam (MOBIC) 15 MG tablet; Take 1 (one) tablet (15 mg total) by mouth daily . Uncontrolled type 2 diabetes mellitus with hyperglycemia, with long-term current use of insulin (HCC) Hypertension, unspecified type - lisinopril (PRINIVIL,ZESTRIL) 20 MG tablet; Take 1 (one) tablet (20 mg total) by mouth daily . - metoprolol tartrate (LOPRESSOR) 25 MG tablet; Take 1 (one) tablet (25 mg total) by mouth 2 (two) times a day . Chest pain of uncertain etiology - pantoprazole (PROTONIX) 40 MG tablet; Take 1 (one) tablet (40 mg total) by mouth daily . Other orders - ammonium lactate (LAC-HYDRIN) 12 % lotion; Apply topically 2 (two) times a day as needed for dry skin . in this encounter* Renee Perez, PT - 11/23/2018 5:30 PM EDT [facility] Evaluation Today's Date 11/23/2018 Patient Name: Juana Handy Date of : 1965 Case Name: s/p lumbar spinal stenosis Functional Diagnosis: SNOMED CT(R) 1. S/P lumbar spinal fusion HISTORY OF LUMBAR FUSION 2. Lumbar degenerative disc disease DEGENERATION OF LUMBAR INTERVERTEBRAL DISC Clinical Information: Subjective Referring Diagnosis: S/P spinal stenosis History of Present Illness Surgery Date: 05/10/2018 Days Post-Op: 197 Chief Complaint/ Mechanism of Injury: The patient states she has cyst in tail bone. She went for the cyst removal and spinal fusion on 05/10/2018. She feels no change after surgery. She states she hasback pain and radiating to rt side and does not change with any change position. The patient has 3 steps to enter home. She is using single point cane. Pain Scale: Average Pain: 8/10 Pain at highest: 10/10 Aggravating factors: laundry, stand more than 10 mins, walking more than 10 mins, no stairs Easing factors: nothing helps Barriers to Care: None Fall risk screening Fallen 2 or more times in the last 12 months: No Injured as a result of a fall in the last 12 months: No Personal Goals: The patient wants to walk for 20 mins and feel strong. Social History Zoroastrian, social, or cultural considerations to be made aware of before starting treatment: No Lumbar Spine General Observations: The patient has lumbosacral brace Gait: antalgic and decreased minna Comments: The patient walk with single point cane. The patient leans on right side during walking. Trunk AROM: Movement Loss % of Loss Description Flexion 75% pain and moves slow Extension 75% pain and moves slow Side Gliding R 75% pain and moves slow Side Gliding L 75% pain and moves slow Dermatomes Sensation: decreased (Rt side L3, L4, L5, S1 hypoasthesia) L3 Right: diminished L4 Right: diminished L5 Right: diminished S1 Right: diminished Muscle Strength: Hip Flexion Right: 3+ Left: 3+ Knee extension Right: 4 Left: 4 Ankle DF Right: 4 Left: 5 Knee flexion Right: 4+ Left: 5 Hip ABD Right: 4- Left: 4- Special Tests SLR Right: no SLR R Left: no SLR L Other Objective Flexibility Hamstring: reduced right hamstring flexibility Gastroc: reduced right gastroc flexibility Treatments: Physical Therapy Exercise Log - 11/23/18 [id number] OTHER Precautions/Contraindications Hypoasthesia L3,L4,L5, S1 Notes Core stability, LE endurance and strenthening, stretching calf, hamstring. Treatment Plan: Frequency of Visits: twice per week Duration: 6 weeks Interventions: Therapeutic Exercise, Neuromuscular Re-Education, Manual Therapy, Therapeutic/ Functional Activities, Gait Training and Hot/Cold Pack Rehab Potential: fair Goals: Physical Therapy Ortho Goals: The patient will safely, correctly and independently demonstrate the ability to perform a progressive HEP to achieve maximal rehabilitation potential and prevent this condition from recurring. The patient will demonstrate increased strength of Hip 5/5 to increase participation in Household activities with 0-3/10 pain. 6 weeks The patient will demonstrate increased core stabilisation in order to be able to walk for 20 mins with no pain. 6 weeks The patient will demonstrate pain level 0-3/10 at back inorder to participate in functional activities frequently. 6 weeks Patient Education provided:The patient was educated back care and rolling technique for getting in and out of the bed. Clinical Impression: Pt is a 53 y.o. year old female who presented to the clinic with back pain pain, leg muscle weakness, gait impairment and signs/symptoms consistent with S/P spinal lumbar fusion.Patient displays impairments of Lumber ROM restriction, stiffness, pain, LE weakness. Pt to benefitfrom individualized treatment plan in order to improve core stability, back flexibility, gait traini ng, LE endurance exercises for overall function and mobility. Renee Perez, PT STATE LICENSE, [id number] in this encounter* Renee Perez, PT - 12/03/2018 3:15 PM EDT [facility] OUTPATIENT REHABILITATION DAILY TREATMENT NOTE Today's Date 12/03/2018 Patient Name: Juana Handy Date of : 1965 Current Visit #: 10/26 Authorized Visits: 30 Case Name: s/p lumbar spinal stenosis History: Pre-Treatment Pain Scale: 9 Symptoms: patient was doing packing and laundry today. she had 9/10 pain Functional Diagnosis: SNOMED CT(R) 1. H/O spinal fusion HISTORY OF SPINAL FUSION Clinical Information: Subjective: the patient stated she was doing packing and laundry and bending a lot. She was 9/10 pain today. Objective: The patient tolerated exercises well today. Treatments: Physical Therapy Exercise Log - 11/23/18 1858 OTHER Precautions/Contraindications Hypoasthesia L3,L4,L5, S1 Notes Core stability, LE endurance and strenthening, stretching calf, hamstring. Goals: Physical Therapy Ortho Goals: The patient will safely, correctly and independently demonstrate the ability to perform a progressive HEP to achieve maximal rehabilitation potential and prevent this condition from recurring. The patient will demonstrate increased strength of Hip 5/5 to increase participation in Household activities with 0-3/10 pain. 6 weeks The patient will demonstrate increased core stabilisation in order to be able to walk for 20 mins with no pain. 6 weeks The patient will demonstrate pain level 0-3/10 at back inorder to participate in functional activities frequently. 6 weeks Patient Education: Written HEP with patient demonstrated understanding. Post-Treatment Pain Scale: 9 Assessment: Patient had an expected response to treatment. Skilled Intervention demonstrated by modifications of treatment per exercise log including core stability, hamstring, back extensor stretching home exercise program and safety interventions per exercise log. Progress towards goals as expected. Plan for Next Visit: Treatment Visit with focus on core stbility progression, back strething Renee Perez PT STATE LICENSE, [id number] in this encounter* Yaneli Diane, PT - 12/07/2018 2:30 PM EDT [facility] OUTPATIENT REHABILITATION DAILY TREATMENT NOTE Today's Date 12/07/2018 Patient Name: Juana Handy Date of : 1965 Current Visit #: 11/23 Authorized Visits: 30 Case Name: s/p lumbar spinal stenosis History: Pre-Treatment Pain Scale: 8 Symptoms: stabilized Functional Diagnosis: SNOMED CT(R) 1. H/O spinal fusion HISTORY OF SPINAL FUSION Clinical Information: Subjective: Patient reports hurts all over today. Is able to walk for 10 minutes prior to increase in symptoms. Patient has been packing to move and has had increased pain. Also with c/o neck pain that initiated 2 days. agol Objective Patient is able to sit 15 minutes prior to requiring to get up d/t pain Treatments: Physical Therapy Exercise Log - 12/07/18 1434 OTHER Notes 3:15 4:10 concurrent Therapeutic Exercise (26462) Intervention Abdominal bracing 10" X10 Parameters Abdominal bracing marching 10" X10 Intervention SKTC 10" X10 Parameters hamstring stretching 10" X3 Intervention LTR 5" X10 Parameters Bridging x1 with increased pain Intervention Clamshells 10 each side supine, 10 each sidelaying with red tband Parameters Pressing ball 10" x10 Intervention Hip abduction RTband 15 PT Treatment Times Therex Total Time 15 Direct Treatment Time 15 Total Treatment Time 55 Goals: Physical Therapy Ortho Goals: The patient will safely, correctly and independently demonstrate the ability to perform a progressive HEP to achieve maximal rehabilitation potential and prevent this condition from recurring. The patient will demonstrate increased strength of Hip 5/5 to increase participation in Household activities with 0-3/10 pain. 6 weeks The patient will demonstrate increased core stabilisation in order to be able to walk for 20 mins with no pain. 6 weeks The patient will demonstrate pain level 0-3/10 at back inorder to participate in functional activities frequently. 6 weeks Patient Education: Verbal HEP with patient demonstrated understanding. Post-Treatment Pain Scale: 6 Assessment: Patient had an expected response to treatment. Skilled Intervention demonstrated by modifications of treatment per exercise log including instruction on modification of exercise d/t increased pain per exercise log. Progress towards goals as expected. Plan for Next Visit: Treatment Visit with focus on Trunk stablization/strengthening Yaneli Diane, PT State License, [id number] in this encounter* Renee Perez, PT - 12/10/2018 4:00 PM EDT [facility] OUTPATIENT REHABILITATION DAILY TREATMENT NOTE Today's Date 12/10/2018 Patient Name: Juana Handy Date of : 1965 Current Visit #: 4 Authorized Visits: 30 Case Name: s/p lumbar spinal stenosis History: Pre-Treatment Pain Scale: 10 Symptoms: stabilized Functional Diagnosis: SNOMED CT(R) 1. H/O spinal fusion HISTORY OF SPINAL FUSION Clinical Information: Subjective: the patient states she tripped over a box yesterday and fell on the knee and had back spasm. She went to the emergency room and had MRI and started muscle relaxant. She has 10 pain level today. Objective the patient had difficulty doing bridging and modified with Little motion. Treatments: Physical Therapy Exercise Log - 12/10/18 1609 OTHER Notes 4:02 4:45 Therapeutic Exercise (27747) Intervention Abdominal bracing 10" X10 X2 Parameters Abdominal bracing marching 10" X10 Intervention SKTC 10" X10 Parameters hamstring stretching 10" X3 Intervention LTR 5" X10 Parameters Bridging (static glutei) 15 Intervention Clamshells 10 each side supine, 10 each sidelying Parameters Pressing ball 10" x15 Intervention Hip abduction GTband 15 Parameters LTR 5" X5 each Modalities Modalities Hot packs Parameters 10 PT Treatment Times Therex Total Time 33 Modalities Total Time 10 Direct Treatment Time 43 Goals: Physical Therapy Ortho Goals: The patient will safely, correctly and independently demonstrate the ability to perform a progressive HEP to achieve maximal rehabilitation potential and prevent this condition from recurring. The patient will demonstrate increased strength of Hip 5/5 to increase participation in Household activities with 0-3/10 pain. 6 weeks The patient will demonstrate increased core stabilisation in order to be able to walk for 20 mins with no pain. 6 weeks The patient will demonstrate pain level 0-3/10 at back inorder to participate in functional activities frequently. 6 weeks Patient Education: Quality of movement with patient verbalized understanding. Post-Treatment Pain Scale: 7 Assessment: Patient had an expected response to treatment. Skilled Intervention demonstrated by modifications of treatment per exercise log including increased rate and safety interventions per exercise log. Progress towards goals as expected. Plan for Next Visit: Treatment Visit with focus on core stability Renee Perez PT STATE LICENSE, [id number] in this encounter* Linh Pat MD - 12/17/2018 12:01 PM EDT [facility] [address] (11) [facility] [address] [facility] [id number] Juana Handy is a 53 y.o. female being seen today, 12/17/18, Chief Complaint Patient presents with Neck - Pain [chief complaint] neck pain HPI Dictation: [hpi] indicates 10 days ago she tripped over a mell litter mendez landing on her knees did not hit her head but felt a pop in her neck and has had neck pain subsequent which has improved since she madethe visit there is no radicular component Physical Exam Dictation: [PE] Alexandr she has mild restriction of range of motion of the neck in all planes negative Spurling's no again no radicular complaints either upper extremity with x-rays showing degenerative disc disease C4-C7 with no acute findings Assessment and Plan Dictation: [AP] aggravation of cervical disc degeneration plan continue on her meloxicam return on a as neededbasis in regards to her neck I have reviewed all relevant histories, medications, allergies, and problem list items with Juana Handy during this visit. Review of Systems Constitutional: Negative for chills and fever. HENT: Negative for congestion. Respiratory: Negative for shortness of breath. Cardiovascular: Negative for chest pain. Gastrointestinal: Negative for diarrhea, nausea and vomiting. Neurological: Negative for headaches. Psychiatric/Behavioral: Negative for behavioral problems. Ht 5' 5" Wt 121.6 kg (268 lb) BMI 44.60 kg/m Imaging: No results found. SNOMED CT(R) 1. Degenerative disc disease, cervical DEGENERATION OF CERVICAL INTERVERTEBRAL DISC Return if symptoms worsen or fail to improve. Linh Pat MD in this encounter* Brando Hurley, SALES REPRESENTATIVE [employer] - 12/22/2018 1:45 PM EDT [facility] OUTPATIENT REHABILITATION DAILY TREATMENT NOTE Today's Date 12/22/2018 Patient Name: Juana Handy Date of : 1965 Current Visit #: 6 Authorized Visits: 30 Case Name: s/p lumbar spinal stenosis History: Pre-Treatment Pain Scale: 8 Symptoms: stabilized Functional Diagnosis: SNOMED CT(R) 1. H/O spinal fusion HISTORY OF SPINAL FUSION Clinical Information: Subjective: Pt states been having a rough time walking. Pt uses daughter as assistance when ambulation into gym. Pt ambulates with an antalgic gait pattern with decrease stance time on L LE secondaryto fall 2 weeks that was documented. Objective Started with B LE stretching to decrease tightness in LB today. Pt cont with core strengthening exercises to improve lumbar stability. Treatments: Physical Therapy Exercise Log - 12/22/18 1308 OTHER Precautions/Contraindications Hypoasthesia L3,L4,L5, S1 Notes PT: renee visit: 02/23 Therapeutic Exercise ([id number]) Intervention Abdominal bracing 10" X10 X2 Parameters Abdominal bracing marching 2x10 Intervention SKTC 10" X10 with strap Parameters hamstring stretching 15" X3 Intervention LTR 10 " X10 Parameters Bridging 3" hold x15 Intervention Clamshells 2x10 B LE Parameters hip ADD with bolster 5" x20 Intervention Hip abduction GTB x15 Parameters SLR flex/abd x10 Modalities Modalities Hot packs Parameters 10' 130 deg Pt supine with towel PT Treatment Times Therex Total Time 30 Modalities Total Time 10 Direct Treatment Time 40 Goals: Physical Therapy Ortho Goals: The patient will safely, correctly and independently demonstrate the ability to perform a progressive HEP to achieve maximal rehabilitation potential and prevent this condition from recurring. The patient will demonstrate increased strength of Hip 5/5 to increase participation in Household activities with 0-3/10 pain. 6 weeks The patient will demonstrate increased core stabilisation in order to be able to walk for 20 mins with no pain. 6 weeks The patient will demonstrate pain level 0-3/10 at back inorder to participate in functional activities frequently. 6 weeks Patient Education: Quality of movement with patient demonstrated understanding. Post-Treatment Pain Scale: 7 Pt states knees hurt post session. Assessment: Patient had an expected response to treatment. Pt had difficulty with bed mobility thisvisit. Pt has good tolerance to current exercises. Ended with HP to decrease pain and sxs. Skilled Intervention demonstrated by modifications of treatment per exercise log including increased load and safety interventions per exercise log. Progress towards goals as expected. Plan for Next Visit: Treatment Visit with focus on core strengthening Brando Hurley PTA STATE LICENSE, [id number] in this encounter* Brando Hurley PTA - 12/29/2018 2:30 PM EDT [facility] OUTPATIENT REHABILITATION DAILY TREATMENT NOTE Today's Date 12/29/2018 Patient Name: Juana Handy Date of : 1965 Current Visit #: 7 Authorized Visits: 30 Case Name: s/p lumbar spinal stenosis History: Pre-Treatment Pain Scale: 6 Symptoms: gradually improved Functional Diagnosis: SNOMED CT(R) 1. H/O spinal fusion HISTORY OF SPINAL FUSION Clinical Information: Subjective: Pt states has been in bed a lot the past couple of days. Pt been in the process of unpacking and moving into new house. Pt got Cortizone shot in L foot yesterday. Pt reports today being agood day with a 6/10 LBP going down to L hip and L knee. Pt states doesn't want to add any new exercises this visit secondary to soreness post last session. Objective Pt started with B LE stretches to decrease pain. Pt cont with same therex per flow sheet. Treatments: Physical Therapy Exercise Log - 12/22/18 1308 OTHER Precautions/Contraindications Hypoasthesia L3,L4,L5, S1 Notes PT: renee visit: 02/23 Therapeutic Exercise ([id number]) Intervention Abdominal bracing 10" X10 X2 Parameters Abdominal bracing marching 2x10 Intervention SKTC 10" X10 with strap Parameters hamstring stretching 15" X3 Intervention LTR 10 " X10 Parameters Bridging 3" hold x15 Intervention Clamshells 2x10 B LE Parameters hip ADD with bolster 5" x20 Intervention Hip abduction GTB x15 Parameters SLR flex/abd x10 Modalities Modalities Hot packs Parameters 10' 130 deg Pt supine with towel PT Treatment Times Therex Total Time 30 Modalities Total Time 10 Direct Treatment Time 40 Goals: Physical Therapy Ortho Goals: The patient will safely, correctly and independently demonstrate the ability to perform a progressive HEP to achieve maximal rehabilitation potential and prevent this condition from recurring. The patient will demonstrate increased strength of Hip 5/5 to increase participation in Household activities with 0-3/10 pain. 6 weeks The patient will demonstrate increased core stabilisation in order to be able to walk for 20 mins with no pain. 6 weeks The patient will demonstrate pain level 0-3/10 at back inorder to participate in functional activities frequently. 6 weeks Patient Education: Quality of movement with patient demonstrated understanding. Post-Treatment Pain Scale: 8 Assessment: Patient had an expected response to treatment. Pt had an increase in pain post session.Pt amb out of gym with SC and antalgic gait pattern. Skilled Intervention demonstrated by modifications of treatment per exercise log including increased load and safety interventions per exercise log. Progress towards goals as expected. Plan for Next Visit: Treatment Visit with focus on Cont per pt tolerance Brando Hurley PTA STATE LICENSE, [id number] documented in this encounter* Duke Salcido PTA - 12/31/2018 2:30 PM EDT [facility] OUTPATIENT REHABILITATION DAILY TREATMENT NOTE Today's Date 12/31/2018 Patient Name: Juana Handy Date of : 1965 Current Visit #: 8 Authorized Visits: 30 Case Name: s/p lumbar spinal stenosis History: Pre-Treatment Pain Scale: 8 Symptoms: stabilized Functional Diagnosis: SNOMED CT(R) 1. H/O spinal fusion HISTORY OF SPINAL FUSION Clinical Information: Subjective: Pt reports she is in intense pain and is very tired Objective Completed ex's to increase core strength Treatments: Physical Therapy Exercise Log - 12/31/18 1448 OTHER Notes PT: renee visit: 04/25 [id number] Therapeutic Exercise ([id number]) Intervention Abdominal bracing 10" 2x10 Parameters Abdominal bracing marching 2x10 Intervention SKTC 10" X10 with strap Intervention LTR 10 " X10 Parameters Bridging 3" hold x15 Intervention Clamshells x10 B LE Parameters hip ADD with bolster 5" x20 Intervention Hip abduction GTB x15 Parameters SLR flex/abd x10 Modalities Parameters 10' 130 deg Pt supine with towel PT Treatment Times Therex Total Time 30 Modalities Total Time 10 Direct Treatment Time 40 Total Treatment Time 43 Goals: Physical Therapy Ortho Goals: The patient will safely, correctly and independently demonstrate the ability to perform a progressive HEP to achieve maximal rehabilitation potential and prevent this condition from recurring. The patient will demonstrate increased strength of Hip 5/5 to increase participation in Household activities with 0-3/10 pain. 6 weeks The patient will demonstrate increased core stabilisation in order to be able to walk for 20 mins with no pain. 6 weeks The patient will demonstrate pain level 0-3/10 at back inorder to participate in functional activities frequently. 6 weeks Patient Education: Verbal HEP with patient verbalized understanding. Post-Treatment Pain Scale: 9 Assessment: Patient had an expected response to treatment. Pt verbalizes high level of pain but does not demo much guarding with transfers Pt is very fatigued with SLR Skilled Intervention demonstrated by modifications of treatment per exercise log including decreased rest breaks and safety interventions per exercise log. Progress towards goals as expected. Plan for Next Visit: Treatment Visit with focus on decreasing pain Duke Salcido PTA STATE LICENSE, [id number] documented in this encounter* Meka Aggarwal PA-C - 12/28/2018 11:21 AM EDT Patient ID: Juana Handy is a 53 y.o. female 1965 Subjective: Juana Handy presents for follow-up of Type 2 diabetes Patient has had diabetes for 2 years. Diagnosed in 2016 Patient has taken Insulin for 4 months. Current Outpatient Medications Medication Sig Dispense Refill ALCOHOL PREP PADS PadM ammonium lactate (LAC-HYDRIN) 12 % lotion Apply topically 2 (two) times a day as needed for dry skin . 400 g 5 aspirin 81 MG EC tablet Take 81 mg by mouth daily. atorvastatin (LIPITOR) 40 MG tablet Take 1 (one) tablet (40 mg total) by mouth at bedtime . 30 tablet 11 BD INSULIN SYRINGE HALF UNIT 0.3 mL 31 gauge x 5/16" Syrg blood sugar diagnostic strips Test up to 4 time per day. 200 each 5 blood-glucose meter Misc Check blood glucose 4 times daily. 1 each 0 DULoxetine (CYMBALTA) 60 MG capsule Take 1 (one) capsule (60 mg total) by mouth daily . 30 capsule 11 gabapentin (NEURONTIN) 600 MG tablet Take 1 (one) tablet (600 mg total) by mouth 3 (three) times a day . 90 tablet 5 glimepiride (AMARYL) 2 MG tablet Take 1 tablet PO BID . 180 tablet 3 insulin glargine (BASAGLAR KWIKPEN U-100 INSULIN) 100 unit/mL (3 mL) InPn Inject 40 (forty) Units under the skin nightly. 5 pen 5 insulin lispro (HumaLOG KwikPen Insulin) 100 unit/mL InPn Inject 15 (fifteen) Units under the skin 3 (three) times a day. (Patient taking differently: Inject 15 Units under the skin 3 (three) times aday Pt uses vials not pen.) 15 mL 5 lancets 23 gauge Misc Check blood glucose 4 times daily. 200 each 5 liraglutide (VICTOZA 2-PUMA) 0.6 mg/0.1 mL (18 mg/3 mL) Pen Inject 1.2 mg under the skin daily . 6 mL 5 lisinopril (PRINIVIL,ZESTRIL) 20 MG tablet Take 1 (one) tablet (20 mg total) by mouth daily . 30 tablet 11 meloxicam (MOBIC) 15 MG tablet Take 1 (one) tablet (15 mg total) by mouth daily . 30 tablet 11 metoprolol tartrate (LOPRESSOR) 25 MG tablet Take 1 (one) tablet (25 mg total) by mouth 2 (two) times a day . 60 tablet 11 pantoprazole (PROTONIX) 40 MG tablet Take 1 (one) tablet (40 mg total) by mouth daily . 30 tablet 11 pen needle, diabetic 31 gauge x 5/16" Ndle Use BID. 100 each 6 SURE COMFORT INSULIN SYRINGE 0.3 mL 31 gauge x 5/16 Syrg TRUE METRIX GLUCOSE TEST STRIP strips To test three to four times a day. 200 each 11 TRUEPLUS LANCETS 33 gauge Misc No current facility-administered medications for this visit. Review of Systems: Review of Systems Constitutional: Negative for appetite change and fatigue. Eyes: Negative for visual disturbance. Respiratory: Negative for cough, chest tightness, shortness of breath and wheezing. Cardiovascular: Negative for chest pain, palpitations and leg swelling. Gastrointestinal: Negative for abdominal pain, constipation, diarrhea, nausea and vomiting. Endocrine: Negative for polydipsia, polyphagia and polyuria. Genitourinary: Negative for dysuria and frequency. Musculoskeletal: Positive for back pain and gait problem. Negative for arthralgias and myalgias. Neurological: Positive for numbness. Negative for weakness and headaches. The following portions of the patient's history were reviewed and updated as appropriate: allergies, current medications, past family history, past medical history, past social history, past surgicalhistory and problem list. Objective: BP 124/73 Pulse 83 Ht 5' 5" Wt 120.2 kg (265 lb 1.6 oz) BMI 44.11 kg/m Wt Readings from Last 3 Encounters: 12/28/18 120.2 kg (265 lb 1.6 oz) 12/17/18 121.6 kg (268 lb) 12/14/18 121.6 kg (268 lb) Physical Exam: General: alert, appears stated age and cooperative Eyes: conjunctivae/corneas clear. PERRL, EOM's intact. Neck: no adenopathy, supple, symmetrical, trachea midline. Thyroid: No thyromegaly appreciated Lung: clear to auscultation bilaterally Heart: regular rate and rhythm, S1, S2 normal, no murmur, click, rub or gallop Extremities: extremities normal, atraumatic, no cyanosis or edema Feet: Dry skin, Bilateral Feet: normal DP. Monofilament exam abnormal, bilateral lower extremities. Neuro: normal without focal findings, mental status, speech normal, alert and oriented x3 and AYO Lab Review Lab Results Component Value Date HGBA1C 8.1 (A) 12/29/2018 Creatinine (mg/dL) Date Value 08/23/2018 0.87 No results found for: CHOL, TRIG, HDL, LDLCALC Lab Results Component Value Date TSH 2.83 08/23/2018 Lab Results Component Value Date WBC 9.7 08/23/2018 HGB 12.3 08/23/2018 HCT 37.0 08/23/2018 PLT 332 08/23/2018 Date 12/28/18 HgbA1C 8.1% Date: 08/23/18 Creatinine 0.87, sodium 138, potassium 4.1, estimated GFR greater than 60 AST 22, ALT 29 Total cholesterol 140, triglycerides 200, HDL 41, LDL 59 WBC 9.7, hemoglobin 12.3, hematocrit 37.0, platelet count 332,000 TSH 2.83, FT4--1.0 Microalbumin/creatinine ratio 13 07/20/18 HgbA1c 9.9% 02/24/18 HgbA1c 10.3% Assessment/Plan: Dx: SNOMED CT(R) 1. Uncontrolled type 2 diabetes mellitus with hyperglycemia, with long-term current use of insulin ([facility]) TYPE II DIABETES MELLITUS UNCONTROLLED POC Hemoglobin A1C Hemoglobin A1c Comprehensive Metabolic Panel Lipid Panel 2. Hypertension, unspecified type HYPERTENSIVE DISORDER 3. Hyperlipidemia, unspecified hyperlipidemia type HYPERLIPIDEMIA Comprehensive Metabolic Panel Lipid Panel Type 2 diabetes, under improving control Patient is currently managed with: Currently taking: Glimepiride 2 mg twice daily Humalog insulin: 15 units at breakfast; 15 units at lunch; 15 units at supper Basaglar insulin: 40 units at bedtime Victoza 1.2 mg daily Current Hemoglobin A1C= 8.1% ( today) Lab Results Component Value Date HGBA1C 8.1 (A) 12/29/2018 HGBA1C 9.9 (A) 07/20/2018 HGBA1C 10.3 (A) 02/24/2018 Weight trend: is stable Current diet: carb controlled, cut out regular sodas Current exercise: no regular exercise; PT twice a week for back Current monitoring regimen: home blood tests - 4 times daily Home blood sugar records: per scanned results Any episodes of hypoglycemia? 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 yes Lisinopril Peripheral Neuropathy: Positive Reports bilateral numbness and tingling in feet; has numbness in right foot from back. Autonomic Neuropathy: Negative Hypoglycemia unawareness. Senses low BG at 120- 130 mg/dl. Other: Hyperlipidemia: Negative Currently taking: atorvastatin (Lipitor). Lab Results Component Value Date AST 22 08/23/2018 ALT 29 08/23/2018 Lab Results Component Value Date EXTCHOL 140 08/23/2018 EXTTRIG 200 (H) 08/23/2018 EXTHDL 41 08/23/2018 Hypertension: Positive. Currently taking: lisinopril (Prinivil) and metoprolol (Lopressor, Toprol) BP: 124/73 Cardiac: Negative Experiencing chest pain no . Experiencing shortness of breath no History of No history of CAD and ETT normal 03/31 Vascular: Negative edema Feet: Positive; she has plantar wart left foot; sores or lesions at this time. Last foot exam: apt today. Sees Dr. Zuñiga for foot care Thyroid: Negative Other: Plan: 1. Rx changes: adjust insulin: Basaglar insulin: 43 units at bedtime Admelog 15 units TID ac Glimepiride 2 mg twice daily Victoza 1.2 mg daily 2. Education: Reviewed ABCs of diabetes management (respective goals in parentheses): A1C (7.0-8.0), blood pressure (<130/80), and cholesterol (LDL <100). 3. Compliance at present is estimated to be good. Efforts to improve compliance (if necessary) willbe directed at dietary modifications: carb controlled, no concentrated sugars and regular blood sugar monitorin times daily. 4. Follow up: 3 months 5. Record blood sugar readings as instructed. Call if BG consistently <70 or >250. [phone] Continue to check blood sugar 4 times daily. She has been checking blood glucoses because she is on 4 times daily insulin and assesses her bloodglucose before giving insulin dose. She has had some episodes of hypoglycemia. Her insulin doses will be adjusted based on her blood glucoses at her office appointments, when she brings her glucose readings to the office. Prognosis: Good Duration of need: Permanent 6. Bring blood sugar meter to follow up appointment. Electronically signed by: Meka Aggarwal PA-C 01/04/19 Orders Placed This Encounter Procedures Hemoglobin A1c Comprehensive Metabolic Panel Lipid Panel POC Hemoglobin A1C documented in this encounter* Meagan El, SALES REPRESENTATIVE [employer] - 01/11/2019 2:30 PM EDT [facility] OUTPATIENT REHABILITATION DAILY TREATMENT NOTE Today's Date 01/11/2019 Patient Name: Juana Handy Date of : 1965 Current Visit #: 10 Authorized Visits: 30 Case Name: s/p lumbar spinal stenosis History: Pre-Treatment Pain Scale: 9 Symptoms: gradually improved Functional Diagnosis: SNOMED CT(R) 1. H/O spinal fusion HISTORY OF SPINAL FUSION Clinical Information: Subjective: Pt reports her R hip and L knee have really been bothering her lately, as well as having usual LBP. Stretches seem to help but not for long. Can navigate her 3 steps at home with greater ease but still has difficulty bending over to load washer and carrying heavier items. Objective Con't core stab ex and stretches to improve mobility and decrease pain. MHP at end session to reduce sx's Treatments: Physical Therapy Exercise Log - 01/11/19 1443 OTHER Precautions/Contraindications Hypoasthesia L3,L4,L5, S1 Notes PT: renee visit: 06/25 Therapeutic Exercise (54848) Intervention Abdominal bracing 10" 2x10 Parameters Abdominal bracing marching 2x10 Intervention SKTC 10" X 5 with strap Parameters hamstring stretching 15" X3 Intervention LTR 10 " X 5 Parameters Bridging 3" hold x20 Intervention Clamshells x10 B LE Parameters hip ADD with bolster 5" x20 Intervention Hip abduction GTB x20 Parameters SLR flex/abd x10 Intervention Nustep L2 3 min ( knee pain) -NT Modalities Modalities Hot packs Parameters 15' 130 deg Pt supine with towel PT Treatment Times Therex Total Time 33 Direct Treatment Time 33 Total Treatment Time 50 Goals: Physical Therapy Ortho Goals: The patient will safely, correctly and independently demonstrate the ability to perform a progressive HEP to achieve maximal rehabilitation potential and prevent this condition from recurring. The patient will demonstrate increased strength of Hip 5/5 to increase participation in Household activities with 0-3/10 pain. 6 weeks The patient will demonstrate increased core stabilisation in order to be able to walk for 20 mins with no pain. 6 weeks The patient will demonstrate pain level 0-3/10 at back inorder to participate in functional activities frequently. 6 weeks Post-Treatment Pain Scale: 6 Assessment: Patient had an expected response to treatment. Pt had to improvement in pain with exercises but slight improvement with HP at end session. R hip pain bothered her most with SLR abduction and flexion. Progress towards goals as expected. Plan for Next Visit: Treatment Visit with focus on continued core stab and stretch Meagan El PTA STATE LICENSE, [id number] documented in this encounter* Meagan El PTA - 01/13/2019 6:15 PM EDT [facility] OUTPATIENT REHABILITATION DAILY TREATMENT NOTE Today's Date 01/13/2019 Patient Name: Juana Handy Date of : 1965 Current Visit #: 11 Authorized Visits: 30 Case Name: s/p lumbar spinal stenosis History: Pre-Treatment Pain Scale: 9 Symptoms: no improvement today Functional Diagnosis: SNOMED CT(R) 1. H/O spinal fusion HISTORY OF SPINAL FUSION Clinical Information: Subjective: Pt reports her home life is really stressful lately (difficulty getting rid of a house guest of her daughter) and woke up having a really bad day. States her hands feel like her feet do with neuropathy and she's having a lot of LBP. Not sure how much she is going to be able to do today. Objective Core stab and stretch to relieve tightness and pain, MHP at end session to reduce pain. Held several interventions d/t pain of either back or hands. Treatments: Physical Therapy Exercise Log - 01/13/19 0018 OTHER Precautions/Contraindications Hypoasthesia L3,L4,L5, S1 Notes PT: renee visit: 07/26 Therapeutic Exercise (04017) Intervention Abdominal bracing 10" 2x10 Parameters Abdominal bracing marching 2x10 Intervention SKTC 10" X 5 with strap -NT Parameters hamstring stretching 15" X3 -NT Intervention LTR 10 " X 5 Parameters Bridging 3" hold x20 Intervention Clamshells x10 B LE Parameters hip ADD with bolster 5" x20 Intervention Hip abduction GTB x20 Parameters SLR flex/abd x10 -NT p! Intervention Nustep L2 3 min ( knee pain) -NT Modalities Modalities Hot packs Parameters 15' 130 deg Pt supine with towel PT Treatment Times Therex Total Time 25 Direct Treatment Time 25 Total Treatment Time 40 Goals: Physical Therapy Ortho Goals: The patient will safely, correctly and independently demonstrate the ability to perform a progressive HEP to achieve maximal rehabilitation potential and prevent this condition from recurring. The patient will demonstrate increased strength of Hip 5/5 to increase participation in Household activities with 0-3/10 pain. 6 weeks The patient will demonstrate increased core stabilisation in order to be able to walk for 20 mins with no pain. 6 weeks The patient will demonstrate pain level 0-3/10 at back inorder to participate in functional activities frequently. 6 weeks Patient Education: Quality of movement with patient demonstrated understanding. Post-Treatment Pain Scale: 8 Assessment: Patient had an expected response to treatment. Pt unable to perform SLR d/t pain and LEstretches for same. Skilled Intervention demonstrated by modifications of treatment per exercise log including decreased load and safety interventions per exercise log. Progress towards goals as expected. Plan for Next Visit: Treatment Visit with focus on core stab and LE strengthening, possible DC to HEP Meagan El PTA STATE LICENSE, [id number] documented in this encounter* Renee Perez, PT - 01/14/2019 2:30 PM EDT [facility] OUTPATIENT REHABILITATION DAILY TREATMENT NOTE Today's Date 01/14/2019 Patient Name: Juana Handy Date of : 1965 Current Visit #: 12 Authorized Visits: 30 Case Name: s/p lumbar spinal stenosis History: Pre-Treatment Pain Scale: 7 Symptoms: stabilized Functional Diagnosis: SNOMED CT(R) 1. H/O spinal fusion HISTORY OF SPINAL FUSION Clinical Information: Subjective: the patient reports her back and rt hip pain when doing exercises. She has left side she has knee pain and she is not able to do terminal extension after 5 reps. Objective : the patient is on the last visit today. Treatments: Physical Therapy Exercise Log - 01/13/19 1833 OTHER Precautions/Contraindications Hypoasthesia L3,L4,L5, S1 Notes PT: renee visit: 07/26 Therapeutic Exercise (33600) Intervention Abdominal bracing 10" 2x10 Parameters Abdominal bracing marching 2x10 Intervention SKTC 10" X 5 with strap -NT Parameters hamstring stretching 15" X3 -NT Intervention LTR 10 " X 5 Parameters Bridging 3" hold x20 Intervention Clamshells x10 B LE Parameters hip ADD with bolster 5" x20 Intervention Hip abduction GTB x20 Parameters SLR flex/abd x10 -NT p! Intervention Nustep L2 3 min ( knee pain) -NT Modalities Modalities Hot packs Parameters 15' 130 deg Pt supine with towel PT Treatment Times Therex Total Time 25 Direct Treatment Time 25 Total Treatment Time 40 Goals: Physical Therapy Ortho Goals: The patient will safely, correctly and independently demonstrate the ability to perform a progressive HEP to achieve maximal rehabilitation potential and prevent this condition from recurring. The patient will demonstrate increased strength of Hip 5/5 to increase participation in Household activities with 0-3/10 pain. 6 weeks The patient will demonstrate increased core stabilisation in order to be able to walk for 20 mins with no pain. 6 weeks The patient will demonstrate pain level 0-3/10 at back inorder to participate in functional activities frequently. 6 weeks Patient Education: Verbal HEP with patient verbalized understanding. Post-Treatment Pain Scale: 7 Assessment: Patient had an expected response to treatment. she does not feel much change in the pain level. She feels she is able to use small height step slowly that she was not able to do before. Skilled Intervention demonstrated by modifications of treatment per exercise log including increased rate and safety interventions per exercise log. Progress towards goals as expected. Plan for Next Visit: Discharge Renee Perez PT STATE LICENSE, [id number] documented in this encounter* Niesha Mullins LPN - 01/28/2019 9:33 AM EDT Referral for Pain Management faxed to [facility] at [phone]. documented in this encounter* Kristie Vera RN - 02/10/2019 10:17 AM EDT Returned message - Left message. Lab Results Component Value Date HGBA1C 8.1 (A) 12/29/2018 HGBA1C 9.9 (A) 07/20/2018 HGBA1C 10.3 (A) 02/24/2018 Lab Results Component Value Date CREATININE 0.87 08/23/2018 Future Appointments Date Time Provider Department Center 04/29/2019 10:15 AM Naomi Reece MD [facility] 05/05/2019 1:30 PM Marianela Fowler CNP [facility] 05/11/2019 3:30 PM Kary Lennon CNP [facility] documented in this encounter* Kristie Vera RN - 04/18/2019 8:57 AM EDT Follow up [employer] messages. [employer] glucose log ordered. Future Appointments Date Time Provider Department Center 04/29/2019 2:15 PM Garima Combs CNP [facility] 05/05/2019 1:30 PM Marianela Fowler CNP [facility] 05/11/2019 3:15 PM Kary Lennon CNP [facility] Goals Reducing Risks Patient SPECIFICALLY identifies the Self Care Behavior Goal of Reducing Risks. Patient will MEASURE progress by: monitoring glucose, engagement in self care foot exam;; A1C <7; BS monitoring; Nutrition, Acitivity) Patient's goal will be ACHIEVED by implementing Resources provided: Handouts, electronic references). Barriers will be: Pt. Engagement, insurance barriers addressed by outreach and education Goal is REALISTIC as evidenced by Confidence level of: unsure 1 month to initiate TIMEFRAME for the goal is: 3 months documented in this encounter* Carolee Aguirre LPN - 04/20/2019 9:33 AM EDT Patient was seen at the ED on 04/19/19. Patient has an appointment scheduled with Marianela Fowler CNP on 05/05/2019. documented in this encounter* Garima Combs CNP - 04/29/2019 2:25 PM EDT Patient ID: Juana Handy is a 53 y.o. female 1965 Subjective: Juana Handy presents for follow-up of Type 2 diabetes Patient has had diabetes for 3 years. Diagnosed in 2016 Patient has taken Insulin for 1year. Ms. Handy is a 53-year-old female patient presents to our office for follow-up of her type 2 diabetes. Patient reports that she just got out of a "very stressful home life situation ", but has been getting her life back on track. She states during that time her blood sugars were out of control dueto stress. She reports that she checks her blood sugar 4 times a day however she did not bring those readings with her for review. Her most recent hemoglobin A1c is 9.4% on 04/28/2019. Patient reportsshe does not follow a diabetic diet, but is trying to get back on track with eating better. Patient's weight is down 7 pounds since her last visit with us in December. Complications from diabetes includes neuropathy. She denies retinopathy or nephropathy. Patient's main complaint today is neuropathy pain. She states that she takes 600 mg of Neurontin 3 times a day which has not been effective. She is awaiting to get into a pain specialist at [facility] for steroid back injections for chronic back pain. Currently Taking: Admelog 15 units TID Basaglar 40 units QHS. Victoza 1.2 mg daily Glimepiride 2 mg twice a day Current Outpatient Medications Medication Sig Dispense Refill ADMELOG U-100 INSULIN LISPRO 100 unit/mL injection INJECT 15 UNITS SUBCUTANEOUSLY THREE TIMES DAILYBEFORE MEALS 10 mL 5 ALCOHOL PREP PADS PadM Use as directed 4x daily. DX code E11.65 . 200 each 5 ammonium lactate (LAC-HYDRIN) 12 % lotion Apply topically 2 (two) times a day as needed for dry skin . 400 g 5 aspirin 81 MG EC tablet Take 81 mg by mouth daily. atorvastatin (LIPITOR) 40 MG tablet Take 1 (one) tablet (40 mg total) by mouth at bedtime . 30 tablet 11 BASAGLAR KWIKPEN U-100 INSULIN 100 unit/mL (3 mL) InPn INJECT 40 UITS UNDER THE SKIN NIGHTLY 15 Syringe 1 BD INSULIN SYRINGE HALF UNIT 0.3 mL 31 gauge x 5/16" Syrg blood-glucose meter (TRUE METRIX GLUCOSE METER) Mis Use to check BG 3x daily. DX code E11.65 NeedsTrue Metrix Meter . 1 each 0 DULoxetine (CYMBALTA) 60 MG capsule TAKE ONE CAPSULE BY MOUTH ONCE DAILY 30 capsule 11 gabapentin (NEURONTIN) 600 MG tablet Take 1 (one) tablet (600 mg total) by mouth 3 (three) times a day . 90 tablet 5 glimepiride (AMARYL) 2 MG tablet Take 1 tablet PO BID . 180 tablet 3 lancets 33 gauge Misc USE TO TEST FOUR TIMES DAILY . 200 each 1 liraglutide (VICTOZA 2-PUMA) 0.6 mg/0.1 mL (18 mg/3 mL) Pen Inject 1.2 mg under the skin daily . 6 mL 5 lisinopril (PRINIVIL,ZESTRIL) 20 MG tablet Take 1 (one) tablet (20 mg total) by mouth daily . 30 tablet 11 meloxicam (MOBIC) 15 MG tablet Take 1 (one) tablet (15 mg total) by mouth daily . 30 tablet 11 metoprolol tartrate (LOPRESSOR) 25 MG tablet Take 1 (one) tablet (25 mg total) by mouth 2 (two) times a day . 60 tablet 11 pantoprazole (PROTONIX) 40 MG tablet Take 1 (one) tablet (40 mg total) by mouth daily . 30 tablet 11 pen needle, diabetic 31 gauge x 5/16" Ndle Use as directed for insulin adm. Insulin and Victoza . 150 each 11 SURE COMFORT INSULIN SYRINGE 0.3 mL 31 gauge x 5/16 Syrg TRUE METRIX GLUCOSE TEST STRIP strips To test three times a day. DX code E11.65 . 100 each 11 insulin lispro (HumaLOG KwikPen Insulin) 100 unit/mL InPn Inject 15 (fifteen) Units under the skin 3 (three) times a day. (Patient taking differently: Inject 15 Units under the skin 3 (three) times aday Pt uses vials not pen.) 15 mL 5 No current facility-administered medications for this visit. Review of Systems: Review of Systems Constitutional: Negative for appetite change and fatigue. Eyes: Negative for visual disturbance. Respiratory: Negative for cough, chest tightness, shortness of breath and wheezing. Cardiovascular: Negative for chest pain, palpitations and leg swelling. Gastrointestinal: Negative for abdominal pain, constipation, diarrhea, nausea and vomiting. Endocrine: Negative for polydipsia, polyphagia and polyuria. Genitourinary: Negative for dysuria and frequency. Musculoskeletal: Positive for back pain and gait problem. Negative for arthralgias and myalgias. Neurological: Positive for numbness. Negative for weakness and headaches. The following portions of the patient's history were reviewed and updated as appropriate: allergies, current medications, past family history, past medical history, past social history, past surgicalhistory and problem list. Objective: BP 127/84 Pulse 84 Ht 5' 5" Wt 117 kg (258 lb) BMI 42.93 kg/m Wt Readings from Last 3 Encounters: 04/29/19 117 kg (258 lb) 04/19/19 117.9 kg (260 lb) 02/27/19 117.9 kg (260 lb) Physical Exam: General: alert, appears stated age and cooperative Eyes: conjunctivae/corneas clear. PERRL, EOM's intact. Neck: no adenopathy, supple, symmetrical, trachea midline. Thyroid: No thyromegaly appreciated Lung: clear to auscultation bilaterally Heart: regular rate and rhythm, S1, S2 normal, no murmur, click, rub or gallop Extremities: extremities normal, atraumatic, no cyanosis or edema, uses cane to get around. SKIN: multiple flat, reddened scratch appearing areas all over her chest, arms and legs. No evidence of infection noted. Feet: Dry skin, Bilateral Feet: normal DP. Monofilament exam abnormal, bilateral lower extremities. Neuro: normal without focal findings, mental status, speech normal, alert and oriented x3 and AYO Lab Review Lab Results Component Value Date HGBA1C 9.4 (H) 04/28/2019 Glucose (mg/dL) Date Value 04/28/2019 182 (H) Creatinine (mg/dL) Date Value 04/28/2019 1.00 08/23/2018 0.87 Lab Results Component Value Date CHOL 138 04/28/2019 TRIG 183 (H) 04/28/2019 HDL 40 04/28/2019 LDLCALC 61 04/28/2019 Lab Results Component Value Date TSH 2.83 08/23/2018 Lab Results Component Value Date WBC 11.58 (H) 04/19/2019 HGB 12.3 04/19/2019 HCT 37.2 04/19/2019 MCV 84.0 04/19/2019 PLT 318 04/19/2019 04/28/19 Hemoglobin A1C 9.4% Creatinine 1.00 GFR > 60 Cholesterol 138 Triglycerides 183 HDL 40 LDL 61 12/28/18 HgbA1C 8.1% Date: 08/23/18 Creatinine 0.87, sodium 138, potassium 4.1, estimated GFR greater than 60 AST 22, ALT 29 Total cholesterol 140, triglycerides 200, HDL 41, LDL 59 WBC 9.7, hemoglobin 12.3, hematocrit 37.0, platelet count 332,000 TSH 2.83, FT4--1.0 Microalbumin/creatinine ratio 13 07/20/18 HgbA1c 9.9% 02/24/18 HgbA1c 10.3% Assessment/Plan: Dx: SNOMED CT(R) 1. Uncontrolled type 2 diabetes mellitus with hyperglycemia, with long-term current use of insulin ([facility]) TYPE II DIABETES MELLITUS UNCONTROLLED Hemoglobin A1c External Lab Microalbumin/Creatinine Comprehensive Metabolic Panel T4, Free TSH 2. Hypertension, unspecified type HYPERTENSIVE DISORDER 3. Hyperlipidemia, unspecified hyperlipidemia type HYPERLIPIDEMIA 4. Neuropathy involving both lower extremities NEUROPATHY OF LOWER LIMB Type 2 diabetes, under improving control Patient is currently managed with: Currently taking: Glimepiride 2 mg twice daily Humalog insulin: 15 units at breakfast; 15 units at lunch; 15 units at supper Basaglar insulin: 40 units at bedtime Victoza 1.2 mg daily Current Hemoglobin A1C= 9.4% 04/28/19 8.1% 12/1718 Lab Results Component Value Date HGBA1C 9.4 (H) 04/28/2019 HGBA1C 8.1 (A) 12/29/2018 HGBA1C 9.9 (A) 07/20/2018 Weight trend: is stable Current diet: carb controlled, Current exercise: no regular exercise Current monitoring regimen: home blood tests - 4 times daily AM: 140-170 Lunch 120-130 Dinner: 150s Bedtime: 190s Home blood sugar records: per patient report no readings brought with the patient today. Any episodes of hypoglycemia? 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 yes Lisinopril Peripheral Neuropathy: Positive Reports bilateral numbness and tingling in feet; has numbness in right foot from back.Taking Gabapentin 600mg oral TID, but reports its not effective. Patient instructed to refer that issue to the pain specialist she will be seen at [facility]. Autonomic Neuropathy: Negative Hypoglycemia unawareness. Senses low BG at 90 mg/dl. Other: Hyperlipidemia: Negative Currently taking: atorvastatin (Lipitor). Cholesterol 138Triglycerides 183 HDL 40 LDL 61 04/28/19 Lab Results Component Value Date AST 36 04/28/2019 ALT 34 04/28/2019 Lab Results Component Value Date EXTCHOL 140 08/23/2018 EXTTRIG 200 (H) 08/23/2018 EXTHDL 41 08/23/2018 Hypertension: Positive. Currently taking: lisinopril (Prinivil) and metoprolol (Lopressor, Toprol) BP: 127/84 Cardiac: Negative Experiencing chest pain no . Experiencing shortness of breath no History of No history of CAD and ETT normal 03/31 Vascular: Negative edema Feet: Positive; she has plantar wart left foot; sores or lesions at this time. Last foot exam: 04/29/19. Sees Dr. Zuñiga for foot care, every 2 weeks or so for injections for pain to ankles. Thyroid: Negative Other: Chronic back pain, s/p 2 back surgeries 10/19/17, 05/10/18. L4-L5 fusions. Awaiting to see PainSpecialist at [facility] for steroid back injections. Plan: 1. Rx changes: adjust insulin: Basaglar insulin: 43 units at bedtime Admelog 15 units at breakfast, 15 units at lunch, 18 units at dinner Glimepiride 2 mg twice daily Victoza 1.2 mg daily The above changes were made to the patient's current insulin regimen. She was instructed to call our office in about 1 week after making these adjustments with blood sugar readings that we can continue to make adjustments appropriately. I explained the patient if she continues to call our office with blood sugar readings we can get her A1c down between 7 and 8. She was encouraged to follow a diabetic diet more closely which could also help reduce her blood sugars. 2. Education: Reviewed ABCs of diabetes management (respective goals in parentheses): A1C (7.0-8.0), blood pressure (<130/80), and cholesterol (LDL <100). 3. Compliance at present is estimated to be good. Efforts to improve compliance (if necessary) willbe directed at dietary modifications: carb controlled, no concentrated sugars and regular blood sugar monitorin times daily. 4. Follow up: 3 months 5. Record blood sugar readings as instructed. Call if BG consistently <70 or >250. [phone] Continue to check blood sugar 4 times daily. She has been checking blood glucoses because she is on 4 times daily insulin and assesses her bloodglucose before giving insulin dose. She has had some episodes of hypoglycemia. Her insulin doses will be adjusted based on her blood glucoses at her office appointments, when she brings her glucose readings to the office. Prognosis: Good Duration of need: Permanent 6. Bring blood sugar meter to follow up appointment. Orders Placed This Encounter Procedures Hemoglobin A1c External Lab Microalbumin/Creatinine Comprehensive Metabolic Panel T4, Free TSH Electronically signed by Garima AARON 192:52 PM documented in this encounter* Marianela Fowler CNP - 05/10/2019 2:40 PM EDT Subjective Patient ID: Juana Handy is a 53 y.o. female. Patient presents the office today for follow-up of chronic conditions. Patient is doing well and has no complaints at this time. Patient states that she is under a large amount of stress as she has move back in with her ex . She states that her rent takes 90% of his checks and they are left with very little money after that. Patient states that she is aware of all the community resources available and goes to the [employer] weekly. Patient states that in the next several weeks she has a court hearing with [facility] so that she can "start receive checks." Hypertension This is a chronic problem. The current episode started more than 1 year ago. The problem has been waxing and waning since onset. The problem is controlled. Associated symptoms include anxiety. Pertinent negatives include no blurred vision, chest pain, headaches, malaise/fatigue, neck pain, orthopnea, palpitations, peripheral edema, PND, shortness of breath or sweats. There are no associated agents to hypertension. Risk factors for coronary artery disease include family history, dyslipidemia, diabetes mellitus, obesity, post- menopausal state, sedentary lifestyle and stress. The current treatment provides significant improvement. Compliance problems include psychosocial issues. There is no history of chronic renal disease. Hyperlipidemia This is a chronic problem. The current episode started more than 1 year ago. The problem is controlled. Recent lipid tests were reviewed and are variable. She has no history of chronic renal disease,diabetes, liver disease or nephrotic syndrome. Pertinent negatives include no chest pain, focal sensory loss, focal weakness, leg pain, myalgias or shortness of breath. Current antihyperlipidemic treatment includes statins. The current treatment provides significant improvement of lipids. Compliance problems include adherence to exercise, adherence to diet and psychosocial issues. Gastroesophageal Reflux She reports no abdominal pain, no belching, no chest pain, no choking, no coughing, no dysphagia, no early satiety, no globus sensation, no heartburn, no hoarse voice, no nausea, no sore throat, no stridor, no tooth decay, no water brash or no wheezing. This is a chronic problem. The current episode started more than 1 year ago. The problem occurs rarely. The problem has been waxing and waning. Pertinent negatives include no anemia, fatigue, melena, muscle weakness, orthopnea or weight loss. She has tried a PPI for the symptoms. The treatment provided significant relief. Review of Systems Constitutional: Negative for activity change, appetite change, fatigue, malaise/fatigue and weight loss. HENT: Negative for hoarse voice and sore throat. Eyes: Negative for blurred vision. Respiratory: Negative for cough, choking, shortness of breath and wheezing. Cardiovascular: Negative for chest pain, palpitations, orthopnea and PND. Gastrointestinal: Negative for abdominal pain, dysphagia, heartburn, melena and nausea. Musculoskeletal: Negative for myalgias, muscle weakness and neck pain. Neurological: Negative for dizziness, focal weakness, facial asymmetry, light- headedness and headaches. Psychiatric/Behavioral: Negative for agitation. The patient is not nervous/anxious. Objective Physical Exam Vitals signs reviewed. Constitutional: Appearance: She is well-developed. HENT: Head: Normocephalic. Right Ear: External ear normal. Left Ear: External ear normal. Cardiovascular: Rate and Rhythm: Normal rate and regular rhythm. Heart sounds: Normal heart sounds. Pulmonary: Effort: Pulmonary effort is normal. Breath sounds: Normal breath sounds. Musculoskeletal: Normal range of motion. Skin: General: Skin is warm and dry. Neurological: Mental Status: She is alert and oriented to person, place, and time. Psychiatric: Speech: Speech normal. Behavior: Behavior normal. Thought Content: Thought content normal. Judgment: Judgment normal. Assessment/Plan: Diagnoses and all orders for this visit: Hypertension, unspecified type Hyperlipidemia, unspecified hyperlipidemia type Class 3 severe obesity with serious comorbidity and body mass index (BMI) of 45.0 to 49.9 in adult,unspecified obesity type (HCC) Gastroesophageal reflux disease, esophagitis presence not specified documented in this encounter* Kary Lennon CNP - 05/11/2019 3:15 PM EDT POST OP NOTE [facility] [address] (11) [facility] [address] [facility] [id number] Procedure date:05/10/2018 Juana Handy is a 53 y.o. female seen in the office today for follow up 8 months post op following L4-5 lumbar fusion with hardware. Incision:healing well, no significant drainage, no dehiscence, no significant erythemastaplesremoved. Pain:moderate pain with movement. She has finished therapy.She states pain is worse than before back surgery. She is able to ambulate and has negative straight leg raise test. She states she has spasms but does not get relief with muscle relaxer. She is asking for pain medicine. No signs of obvious infection. Neurovascular exam is grossly normal distally. Capillary refill <3 sec. No skin breakdown. Range of motion and strength satisfactory and 4/5. . Imaging: X-Rays: Office films, 2 Views lumbar hardware in acceptable position at L4 and L5 level. Restrictions;full duty Plan The patient is aware of the addictive nature of narcotics. Education was given. He/ she has had a major orthopedic procedure but is past her 90 day requirement. We will reer to pain management @No follow-ups on file. Kary Lennon CNP 05/11/2019 documented in this encounter* Kristie Vera RN - 07/14/2019 11:15 AM EDT Chronic Care. Glucose FBSincreased to >200 mg/dl. Attributes high glucose to stress with boyfriend.Taking all meds. As prescribed Uses [facility] for blood Pt. Tearful, refocused on pt. self care in regards to relationships and focus. Declines MH counseling, would like assistance with self care goals. Resources: Obtains food stamps $194 and uses local food pantries, Aware of transportation availability through insurance. Will contact insurance to arrange specific environmental health manager assigned. Lab Results Component Value Date HGBA1C 9.4 (H) 04/28/2019 HGBA1C 8.1 (A) 12/29/2018 HGBA1C 9.9 (A) 07/20/2018 Lab Results Component Value Date LDLCALC 61 04/28/2019 CREATININE 0.84 05/16/2019 Future Appointments Date Time Provider Department Center 08/05/2019 1:00 PM Farhad Palmer PA-C [facility] 08/22/2019 2:20 PM JOVANA Shah [facility] 11/03/2019 1:00 PM JOVANA Shah [facility] documented in this encounter* Patricia Abdi RD - 07/18/2019 2:46 PM EST Nutrition note: This is RD's first attempt to contact this referral. Patient identification verified by at least three identifiers prior to case management which included Full Name, Date of and Phone number. Patient agreed to exchange information. Subjective/Interview: Reason for Visit: Chief Complaint Patient presents with Nutrition Counseling [facility] health curriculum coach referral Pt with history of type 2 diabetes mellitus. Typical Intake: see diet history Activity/Exercise Pattern: not asked Social History: Pt stated she checks her blood sugars 4 times a day and her fasting blood sugar this morning was 174. Pt stated she uses local food pantries for food. Referral also included that pt obtains food stamps. Social History Socioeconomic History Marital status: Spouse name: Not on file Number of children: Not on file Years of education: Not on file Highest education level: Not on file Occupational History Not on file Social Needs Financial resource strain: Not on file Food insecurity: Worry: Sometimes true Inability: Sometimes true Transportation needs: Medical: Not on file Non-medical: Not on file Tobacco Use Smoking status: Never Smoker Smokeless tobacco: Never Used Substance and Sexual Activity Alcohol use: No Drug use: No Sexual activity: Not on file Lifestyle Physical activity: Days per week: Not on file Minutes per session: Not on file Stress: Not on file Relationships Social connections: Talks on phone: Not on file Gets together: Once a week Attends religion service: Not on file Active member of club or organization: Not on file Attends meetings of clubs or organizations: Not on file Relationship status: Not on file Other Topics Concern Not on file Social History Narrative Not on file Objective: unhhml=362 pounds per pt Height=64 inches per pt BMI=45.8 kg/m2 which places pt in the obesity class III HBA1C: Lab Results Component Value Date HGBA1C 9.4 (H) 04/28/2019 Other pertinent lab: Lab Results Component Value Date CHOL 138 04/28/2019 Lab Results Component Value Date HDL 40 04/28/2019 Lab Results Component Value Date LDLCALC 61 04/28/2019 Lab Results Component Value Date TRIG 183 (H) 04/28/2019 Lab Results Component Value Date CHOLHDL 3.5 04/28/2019 Diet History of yesterday: Pt stated she does not usually eat 3 meals a day because of cost. Pt also stated she currently usessmaller plates at meals. Pt reported she had scrambled eggs and whole wheat toast with a little margarine for breakfast yesterday. Pt stated she got sick in middle of day and did not eat anything until later in the day. Pt stated she had chicken broth and whole wheat toast with little bit of margari ne at dinner. Pt reported she usually only drinks water and sometimes has tea or coffee with some skim milk. Pt reported she "has trouble following a low carb diet using food pantries." Pt stated shedoes eat carrots and green beans and the occasional salad. Pt also stated she "can't eat corn because of diverticulitis." Pt also stated she "bakes everything because can't eat fried foods. Pt also stated she loves spaghetti. Pt also reported she sometimes has a piece of fruit like an apple for a snack. Assessment: PES: Food and nutrition-related knowledge deficit related to diabetes management with diet as evidenced by pt's comments during call. Interventions: Instructed pt on basics of diabetes management with diet, instructed pt on plate method and carbohydrate counting as requested, provided a goal for carbohydrate counting of 45 grams ofcarbohydrates at meals for 3 meals a day as requested by pt, instructed pt on label reading, provided pt with ideas on how to follow plate method and carbohydrate count on a budget and using food pantries Readiness to Learn: good Barriers to Learning: telephonic encounter Expected Adherence: good Impression: Pt was engaged during call. Pt requested to know how many carbohydrates she is supposed to have at meals. Goals: Try carbohydrate counting with a goal of 45 grams of carbohydrate at 3 meals a day, 2 days a week by RD follow up in about 2 weeks. Treatment Plan: Try carbohydrate counting at meals RD to send pt "Meeting Your MyPlate Goals on a Budget" handout and "Ready, Set, Start Counting!" handout from [employer] [facility] per pt's request. RD confirmedpt's address during call. Pt stated her zip code is actually [facility]. RD changed pt's zip code in [facility] per pt's request. Follow Up: Telephonic follow up in about 2 weeks in the afternoon per pt's request. Patricia Abdi RD, LD documented in this encounter* Patricia Abdi RD - 07/18/2019 2:46 PM EST Nutrition note: This is RD's first attempt to contact this referral. Patient identification verified by at least three identifiers prior to case management which included Full Name, Date of and Phone number. Patient agreed to exchange information. Subjective/Interview: Reason for Visit: Chief Complaint Patient presents with Nutrition Counseling [facility] health curriculum coach referral Pt with history of type 2 diabetes mellitus. Typical Intake: see diet history Activity/Exercise Pattern: not asked Social History: Pt stated she checks her blood sugars 4 times a day and her fasting blood sugar this morning was 174. Pt stated she uses local food pantries for food. Referral also included that pt obtains food stamps. Social History Socioeconomic History Marital status: Spouse name: Not on file Number of children: Not on file Years of education: Not on file Highest education level: Not on file Occupational History Not on file Social Needs Financial resource strain: Not on file Food insecurity: Worry: Sometimes true Inability: Sometimes true Transportation needs: Medical: Not on file Non-medical: Not on file Tobacco Use Smoking status: Never Smoker Smokeless tobacco: Never Used Substance and Sexual Activity Alcohol use: No Drug use: No Sexual activity: Not on file Lifestyle Physical activity: Days per week: Not on file Minutes per session: Not on file Stress: Not on file Relationships Social connections: Talks on phone: Not on file Gets together: Once a week Attends religion service: Not on file Active member of club or organization: Not on file Attends meetings of clubs or organizations: Not on file Relationship status: Not on file Other Topics Concern Not on file Social History Narrative Not on file Objective: tyzukw=902 pounds per pt Height=64 inches per pt BMI=45.8 kg/m2 which places pt in the obesity class III HBA1C: Lab Results Component Value Date HGBA1C 9.4 (H) 04/28/2019 Other pertinent lab: Lab Results Component Value Date CHOL 138 04/28/2019 Lab Results Component Value Date HDL 40 04/28/2019 Lab Results Component Value Date LDLCALC 61 04/28/2019 Lab Results Component Value Date TRIG 183 (H) 04/28/2019 Lab Results Component Value Date CHOLHDL 3.5 04/28/2019 Diet History of yesterday: Pt stated she does not usually eat 3 meals a day because of cost. Pt also stated she currently usessmaller plates at meals. Pt reported she had scrambled eggs and whole wheat toast with a little margarine for breakfast yesterday. Pt stated she got sick in middle of day and did not eat anything until later in the day. Pt stated she had chicken broth and whole wheat toast with little bit of margari ne at dinner. Pt reported she usually only drinks water and sometimes has tea or coffee with some skim milk. Pt reported she "has trouble following a low carb diet using food pantries." Pt stated shedoes eat carrots and green beans and the occasional salad. Pt also stated she "can't eat corn because of diverticulitis." Pt also stated she "bakes everything because can't eat fried foods. Pt also stated she loves spaghetti. Pt also reported she sometimes has a piece of fruit like an apple for a snack. Assessment: PES: Food and nutrition-related knowledge deficit related to diabetes management with diet as evidenced by pt's comments during call. Interventions: Instructed pt on basics of diabetes management with diet, instructed pt on plate method and carbohydrate counting as requested, provided a goal for carbohydrate counting of 45 grams ofcarbohydrates at meals for 3 meals a day as requested by pt, instructed pt on label reading, provided pt with ideas on how to follow plate method and carbohydrate count on a budget and using food pantries Readiness to Learn: good Barriers to Learning: telephonic encounter Expected Adherence: good Impression: Pt was engaged during call. Pt requested to know how many carbohydrates she is supposed to have at meals. Goals: Try carbohydrate counting with a goal of 45 grams of carbohydrate at 3 meals a day, 2 days a week by RD follow up in about 2 weeks. Treatment Plan: Try carbohydrate counting at meals RD to send pt "Meeting Your MyPlate Goals on a Budget" handout and "Ready, Set, Start Counting!" handout from [employer] [facility] per pt's request. RD confirmedpt's address during call. Pt stated her zip code is actually [facility]. RD changed pt's zip code in care [facility] per pt's request. Follow Up: Telephonic follow up in about 2 weeks in the afternoon per pt's request. Patricia Abdi RD, LD documented in this encounter* Patricia Abdi RD - 07/21/2019 3:12 PM EST Nutrition note: This is RD's first attempt to contact pt to provide pt with more food resources available in [place]. Patient identification verified by at least three identifiers prior to case management which included Full Name, Date of and Phone number. Patient agreed to exchange information. RD called pt to provide other [place] food pantries resources and let pt know that she can go to multiple food pantries if needed. Pt declined [place] referral line for other pantries during call. Pt statedshe likes going to the food pantry across the street and just got signed up for Thanksgiving meal there. Telephonic follow up with RD planned for 08/01/19. RD encouraged pt to contact RD if any nutrition- related questions prior to follow up call. Pt has RD contact information. Patricia Abdi RD, LD documented in this encounter* Patricia Abdi RD - 08/09/2019 8:07 AM EST Nutrition note: Pt sent RD a Cater to u message which included: Yes every 3 weeks is great RD replied to the message with: Juana, That's great! I will plan to call you in 3 weeks then. Please feel free to contact me if you have nutrition-related questions before then. I hope you have a great rest of your week. Best regards, Alanna Abdi RD, LD Dietitian with [facility] Management [phone]" Patricia Abdi RD, LD documented in this encounter* Patricia Abdi RD - 08/29/2019 12:49 PM EST Nutrition note: This is TROY's first attempt to follow up with this pt. Pt requested that RD call back tomorrow after12 pm because did not sleep well last night. Patricia Abdi RD, LD documented in this encounter* Patricia Abdi RD - 08/30/2019 1:14 PM EST Nutrition note: This is TROY's second attempt to contact this pt for follow up. Prqvil=265 pounds per pt (08/08/19), iwxkcw=595 pounds per pt (08/30/19), one pound intentional weight decrease between 08/08/19 and 08/30/19 based on self- reported weights Blood sugars: Pt reported her fasting blood sugar was 170 which is better than it was. Lab Results Component Value Date HGBA1C 9.2 (A) 08/05/2019 Diet review of yesterday: Breakfast-"two scrambled eggs with toast" Lunch-"slept through lunch" Dinner-"homemade pasta dish with bow tie pasta, sausage, carrots, and peas and kept portion to one cup" Snacks-"an orange and some peanut butter" Beverages-"only water" Previous goal: Try carbohydrate counting with a goal of 45 grams of carbohydrate at 3 meals a day, 2 days a week by RD follow up in about 2 weeks.-met per pt Pt stated she has been eating smaller portions and watching carbohydrates. Pt reported she feels like she has more energy with the changes to how she is eating. Intervention: RD praised pt for meeting goal and for all of the positive changes she has made on her diet. Pt stated she is going to work on creating some menus that wants to discuss with RD in a month. RD praisedpt for this idea. Used motivational interviewing to focus on areas pt would like to work on in the future. Pt stated she would like to keep same goal right now. Pt denied any nutrition-related questions during call. RD offered encouragement and supportive listening during call. Telephonic follow upplanned for about one month per pt's request. RD encouraged pt to contact RD if any nutrition-related questions prior to follow up call. Pt has RD contact information. Patricia Abdi RD, LD documented in this encounter* Patricia Abdi RD - 09/26/2019 2:01 PM EST Nutrition note: This is RD's first attempt to follow up with this pt. Pt requested that RD call back next Thursday inthe afternoon. RD to call back as requested. Patricia Abdi RD, LD documented in this encounter* Patricia Abdi RD - 10/03/2019 1:51 PM EST Nutrition note: This is TROY's second attempt to contact pt as requested. Pt stated it was not a good time to talk and requested that RD call back tomorrow at around [address], LD documented in this encounter* Patricia Abdi RD - 10/04/2019 2:04 PM EST Nutrition note: This is RD's third attempt to follow up with this pt. Left message with RD contact information on pt's voicemail. Also sent [employer] message which included the following: Ki Arias, I hope you're doing well. I am sending you this message to follow up with you. How is your goal coming along of carbohydrate counting with a goal of 45 grams a meal at 3 meals a day, 2 days a week? Any barriers to this goal? I know you mentioned the last time we talked that you were going to createsome menus that you would like to discuss with me. Have you had a chance to create those menus? If you're interested in following up with me, please feel free to reply to this message or call me at the number listed below at your convenience. I hope you have a great day. Best regards, Alanna Abdi RD, LD Dietitian with [facility] [phone]" Patricia Abdi RD, LD documented in this encounter* Rex Paulo, PT - 11/02/2019 3:15 PM EST [facility] Evaluation Today's Date 11/02/2019 Patient Name: Juana Handy Date of : 1965 Case Name: neck, thoracic, lumbar pain Functional Diagnosis: 1. Chronic neck pain 2. Chronic thoracic spine pain 3. Chronic bilateral low back pain, unspecified whether sciatica present Clinical Information: Subjective Referring Diagnosis: neck, thoracic, and LBP History of Present Illness Date of Onset: 05/02/2019 Chief Complaint/ Mechanism of Injury: Pt reports having "a lot" of pain along her neck and UT bilaterally. Pt with shooting pain into her 1st and 2nd digit on the both sides. Pt reports intermittent tingling in bilateral hands globally. Pt reports "jumping through the hoops" for an MRI. Fusion of L4/ L5. Pt arrived with cane in R hand. Pt additionally reports [place] 3 days/wk. 9/10 cervical and lumbar pain however pt reports cervical pain is primary concern Total previous episodes of LBP: 3 Previous Treatments: none for most recent. Status: worsening Hand dominance: right Pain Scale: Average Pain: 9/10 Pain at highest: 10/10 Aggravating factors: turning her head, looking up or down, bending fwd (causes shooting into hands) Easing factors: not moving neck, heat, sitting in chair with pillow under her neck Functional Status Functional Limitations: limited mobility, standing and recent decline in level of ADL Premorbid Functional Level: Patient reported Current Functional Level: see outcome tool and unable to drive (pt reports daughter helps her get dressed intermittently) Daily activity scale: sedentary Prior level of function: low active Sleep Assessment Sleep disturbance: Sleep Disturbance (2-3x/night) Red Flags: None Barriers to Care: Transportation Fall risk screening Fallen 2 or more times in the last 12 months: No (1 fall, pt tripped on floor boards that were coming up) Personal Goals: Pt would like to improve cervical mobility. Social History Home environment: steps with no railing Zoroastrian, social, or cultural considerations to be made aware of before starting treatment: No Cervical Spine: Range of Motion - Cervical Protraction Loss: 0% Retraction Loss: 50% (pain) Flexion Loss: 50% (pain) Extension Loss: 75% (pain) Rt Rotation Loss: 50% Lt Rotation Loss: 50% Rt Side Bend Loss: 25% Lt. Side Bend Loss: 25% Special Tests Spurling Right: Negative Left:Negative Additional Cervical Findings:(+) radial nerve test LUE (-) radial nerve test RUE Pt required extended time and progressive cuing get her neck into neutral extension. Pt with inconsistent pain location however most commonly reported RUT pain and and mid thoracic pain with cervical movements. 4/5 global bilateral UE strength. Treatments: Physical Therapy Exercise Log - 11/02/19 3001 OTHER Notes Paulo PT, 11/02/2019; 16 Vitals cervical focus Therapeutic Exercise (95408) Intervention supine lying with progression to head flat on table Parameters abdominal brace Intervention chin tuck Parameters L radial nerve flossing Treatment Plan: Frequency of Visits: twice per week Duration: 8 weeks Interventions: Therapeutic Exercise, Manual Therapy, Therapeutic/ Functional Activities, Gait Training, Aquatic Therapy and Hot/Cold Pack Rehab Potential: good Goals: Physical Therapy Ortho Goals: Pt would like to improve cervical mobility. Pt will demonstrate increase cervical extension to 25% deficit to improve static posturing within 4weeks. Pt to be compliant with progressive HEP to increase carryover between PT sessions within 2 weeks. Pt to verbalize 5/10 pain to allow for return to all prior ADL's within 8 weeks. Pt will demonstrate proper form while performing a chin tuck and hold within 2 weeks. Pt to demonstrate a 10 point increase in their FOTO outcome measure to signify an increase in functional status within 8 weeks. Eval date: 11/02/2019 Re-cert: 12/01/2019 Visits: 16 Patient Education provided: Pt educated on course of condition, therapy, and the importance of HEP completion. Clinical Impression: CPT Code 81391 Low 97285 Moderate 93013 High History 0 1-2 3+ Comorbidities: DM and HTN, Personal factors: chronicity or severity of the current condition and transportation barriers Examination of body systems (elements of body structures & functions, activity limitations, and/or participation restrictions) 1-2 elements 3+ elements 4+ elements See below clinical impression Clinical Presentation Stable Evolving Unstable As evidenced by reproduction of or changes in symptoms with certain movements, pt report of overallworsening of symtpoms over time and reports of fluctuating symptoms over time Decision Making Low (FOTO >/= 69) Moderate (FOTO 34 - 68) High (FOTO </= 33) FOTO score= 39 Pt is a 54 y.o. female who presents to PT services with c/o cervical pain with radicular symptoms into [facility]. Upon assessment, pt has been found with the following impairments: impaired posture, decreased strength, antalgic gait, decreased stability, numbness/ tingling, and pain. The documented impairments result in the following functional limitations: functional mobility, walking, quality of lifeand driving. The pt would benefit from skilled PT services focused on the above listed impairments and limitations in order to safely progress pt to their desired level of function. Pt to be discharged from OP PT services if/when goals are met, if they fail to make progress with conservative management in PT, if their level of progress plateaus, or if they do not maintain compliance with attendance or HEP. At this time, it is my clinical judgment that services are medically necessary. Paulo Goodman, PT STATE LICENSE, [id number] documented in this encounter* Meka Earl, SALES REPRESENTATIVE [employer] - 11/04/2019 2:30 PM EST [facility] OUTPATIENT REHABILITATION DAILY TREATMENT NOTE Today's Date 11/04/2019 Patient Name: Juana Handy Date of : 1965 Current Visit #: 2 Authorized Visits: 30 Case Name: neck, thoracic, lumbar pain History: Pre-Treatment Pain Scale: 7 Symptoms: very stiff in cervical and thoracic Functional Diagnosis: 1. Chronic thoracic spine pain 2. Chronic neck pain Clinical Information: Subjective: Pt reoprts her neck is very stiff and that her back hurts a lot. Objective. Began with PT POC e'xs and added cervical AROM, thoracic and lumbar stretching for increased flexibility.HEP not given at this time, ex's results needs assessed due to complexity of pain. Treatments: Physical Therapy Exercise Log - 11/04/19 1783 OTHER Notes Paulo PT, 11/02/2019; 16 Vitals cervical focus Therapeutic Exercise (88922) Intervention supine lying with progression to head flat on table Parameters abdominal brace 10" x 10 Intervention SKTC x 10 Parameters bridging x 10 Intervention thoracic stretching - open book x8 bilat Parameters chin tuck 3" x10 Intervention L radial nerve flossing x8 bilat Parameters Cervical AROM Rot, side bending, PT Treatment Times Therex Total Time 35 Direct Treatment Time 35 Total Treatment Time 41 Goals: Physical Therapy Ortho Goals: Pt would like to improve cervical mobility. Pt will demonstrate increase cervical extension to 25% deficit to improve static posturing within 4weeks. Pt to be compliant with progressive HEP to increase carryover between PT sessions within 2 weeks. Pt to verbalize 5/10 pain to allow for return to all prior ADL's within 8 weeks. Pt will demonstrate proper form while performing a chin tuck and hold within 2 weeks. Pt to demonstrate a 10 point increase in their FOTO outcome measure to signify an increase in functional status within 8 weeks. Eval date: 11/02/2019 Re-cert: 12/01/2019 Visits: 16 Patient Education: Verbal HEP with patient verbalized understanding. Post-Treatment Pain Scale: 7 Assessment: Pt had increased pain with chin tucks, d/yanet ex. Pt able to complete slow and steady with discomfort in all postions., Patient had an expected response to treatment. Skilled Intervention demonstrated by modifications of treatment per exercise log including increased intensity and safety interventions per exercise log. Progress towards goals as expected. Plan for Next Visit: Treatment Visit with focus on cervical and throacic stretching/flexibility andpain management Meka Earl PTA STATE LICENSE, [id number] documented in this encounter* Cachorro Brown PTA - 11/14/2019 2:30 PM EST Pt consult time: [id number] Pt amb into clinic with antalgic gait and reports 9/10 pain in neck, bilat shlds, and mid and low back to begin treatment. Pt notes that she has been suffering from muscle spasms in back/neck that cause instability in bilat LEs in which cause her knees to buckle which causes falls. Pt notes that the muscle spasms having been getting worst especially after the Oct in where she cleaned her appt after moving for up to 8-9 hours in which caused her pain and sx to increase. Pt notes increased LE instability and increased back pain and sx last night with trying to cook at school last night. Ptnotes she tried to call referring provider to report increased pain and sx and presence of muscle spasms but notes inly able to leave a message, SALES REPRESENTATIVE [employer] instructed pt to re-contact referring provider to reports increased pain and sx. Pt left without being seen for therapy this date. SALES REPRESENTATIVE [employer] instructed pt to contact doctor, got to ER and or Urgent care if pain and sx continue to persist and or get worse. documented in this encounter* Willow Deutsch LPN - 01/13/2020 11:54 AM EDT VMM left to f/u on recent E.R. visit. Requested return call to PCP or to my direct # both # provided. documented in this encounter* Marianela Fowler, CORPORATE CONSULTANT - 11/03/2019 1:13 PM EST OFFICE VISIT PROGRESS NOTE Juana V Ole is a 54 y.o. female with a past medical history of Patient Active Problem List Diagnosis Lumbar degenerative disc disease Herniated intervertebral disc of lumbar spine Spinal stenosis of lumbar region without neurogenic claudication Uncontrolled type 2 diabetes mellitus with hyperglycemia, with long-term current use of insulin ([facility]) Neuropathy involving both lower extremities Type 2 diabetes mellitus without complication, with long-term current use of insulin ([facility]) H/O spinal fusion Hypertension Hyperlipidemia Fibromyalgia Class 3 severe obesity with serious comorbidity and body mass index (BMI) of 45.0 to 49.9 in adult (HCC) Degenerative disc disease, cervical Gastroesophageal reflux disease Chronic neck pain Chronic thoracic spine pain Chronic bilateral low back pain Depression with anxiety who presents to the office today for a follow up on chronic conditions. Patient overall is doing well, however, she is depressed due to relationship stressors. Hypertension This is a chronic problem. The current episode started more than 1 year ago. The problem has been waxing and waning since onset. The problem is uncontrolled. Associated symptoms include anxiety and malaise/fatigue. Pertinent negatives include no chest pain, headaches, palpitations or shortness of breath. Risk factors for coronary artery disease include family history, dyslipidemia, diabetes mellitus, obesity, stress and sedentary lifestyle. The current treatment provides moderate improvement. Compliance problems include diet and exercise. Anxiety Presents for initial visit. Onset was 1 to 6 months ago. The problem has been gradually worsening. Symptoms include depressed mood, excessive worry, insomnia, irritability, muscle tension, nervous/anxious behavior, panic and restlessness. Patient reports no chest pain, dizziness, palpitations or shortness of breath. Symptoms occur most days. The severity of symptoms is interfering with daily activities. The symptoms are aggravated by family issues. The quality of sleep is poor. Nighttime awakenings: one to two. Risk factors include emotional abuse (relationship stressors ). Her past medical history is significant for depression. Past treatments include nothing. Depression Visit Type: initial Onset of symptoms: 1 to 6 months ago Progression since onset: waxing and waning Patient presents with the following symptoms: depressed mood, excessive worry, fatigue, feelings ofhopelessness, feelings of worthlessness, insomnia, irritability, muscle tension, nervousness/anxiety, panic and restlessness. Patient is not experiencing: palpitations, shortness of breath and weight loss. Frequency of symptoms: most days Severity: causing significant distress Sleep quality: poor Nighttime awakenings: one to two No history of: anemia Gastroesophageal Reflux She reports no abdominal pain, no chest pain, no coughing, no early satiety, no heartburn or no sore throat. This is a chronic problem. The current episode started more than 1 year ago. The problem occurs rarely. The problem has been waxing and waning. The symptoms are aggravated by stress, certainfoods and caffeine. Associated symptoms include fatigue. Pertinent negatives include no anemia, melena, muscle weakness, orthopnea or weight loss. Risk factors include obesity. She has tried a PPI for the symptoms. The treatment provided significant relief. Hyperlipidemia This is a chronic problem. The current episode started more than 1 year ago. Recent lipid tests were reviewed and are variable. Exacerbating diseases include diabetes and obesity. Factors aggravatingher hyperlipidemia include fatty foods. Pertinent negatives include no chest pain, focal sensory loss, focal weakness, leg pain, myalgias or shortness of breath. Current antihyperlipidemic treatment includes statins. The current treatment provides significant improvement of lipids. Compliance problems include adherence to diet and adherence to exercise. Health Maintenance Topic Date Due Hepatitis C Screening 1965 Wellness Visit 1968 Ophthalmology Exam 1975 Zoster Vaccines (1 of 2) 2015 Urine Microalbumin 08/23/2019 Mammogram 12/10/2019 A1C 02/03/2020 Pap Smear 04/28/2020 Depression Screening (PHQ9) 05/05/2020 Foot Exam 08/05/2020 Tetanus: Every 10yrs 07/11/2021 Colorectal Cancer Screening: Colonoscopy 05/07/2027 Sequential Influenza Vaccine Completed The following portions of the patient's history were reviewed and updated as appropriate: allergies, current medications and problem list. Family History Problem Relation Age of Onset Lung cancer Father Heart failure Father Heart disease Father Diabetes Brother Heart disease Brother Bone cancer Maternal Grandmother Heart failure Maternal Grandmother Stroke Maternal Grandmother Cancer Half-Sister unknown cancer (mother in common) Heart disease Sister Diabetes Sister Mental illness Daughter Cancer Paternal Grandmother Social History Socioeconomic History Marital status: Spouse name: Not on file Number of children: Not on file Years of education: Not on file Highest education level: Not on file Occupational History Not on file Social Needs Financial resource strain: Somewhat hard Food insecurity Worry: Sometimes true Inability: Sometimes true Transportation needs Medical: No Non-medical: No Tobacco Use Smoking status: Never Smoker Smokeless tobacco: Never Used Substance and Sexual Activity Alcohol use: No Drug use: No Sexual activity: Not Currently Lifestyle Physical activity Days per week: Not on file Minutes per session: Not on file Stress: Not on file Relationships Social connections Talks on phone: Three times a week Gets together: Once a week Attends religion service: Not on file Active member of club or organization: Not on file Attends meetings of clubs or organizations: Not on file Relationship status: Not on file Other Topics Concern Not on file Social History Narrative Not on file Past Surgical History: Procedure Laterality Date BONE MARROW BIOPSY W/ ASPIRATION 06/04/2018 ........Dr. Pat BREAST BIOPSY Left 10/12/2017 Stereo-proliferative fibrocystic changes and associated microcalcifications, focal pseudoangiomatous stromal hyperplasia CATARACT EXTRACTION, BILATERAL COLONOSCOPY 37 years old..Diverticulitis COLONOSCOPY 05/07/2017 diverticulosis, signle polyp in sigmoid, internal hermorrhoids...Dimitris DILATION AND CURETTAGE OF UTERUS for utreine bleeding LUMBAR FUSION 10/19/2017 Allergies Allergen Reactions Latex Rash Patient's Medications New Prescriptions CYCLOBENZAPRINE (FLEXERIL) 5 MG TABLET Take 1 (one) tablet (5 mg total) by mouth 3 (three) times a day as needed for muscle spasms . Previous Medications ALCOHOL PREP PADS PADM Use as directed 4x daily. DX code E11.65 . AMMONIUM LACTATE (LAC-HYDRIN) 12 % LOTION Apply topically 2 (two) times a day as needed for dry skin . ASPIRIN 81 MG EC TABLET Take 81 mg by mouth daily. ATORVASTATIN (LIPITOR) 40 MG TABLET Take 1 (one) tablet (40 mg total) by mouth at bedtime . BLOOD-GLUCOSE METER (TRUE METRIX GLUCOSE METER) [facility] Use to check BG 3x daily. DX code E11.65 NeedsTrue Metrix Meter . DULOXETINE (CYMBALTA) 60 MG CAPSULE Take 1 (one) capsule (60 mg total) by mouth daily . GLIMEPIRIDE (AMARYL) 2 MG TABLET Take 1 tablet PO BID . INSULIN GLARGINE (BASAGLAR KWIKPEN U-100 INSULIN) 100 UNIT/ML (3 ML) INPN Use nightly as directed, approx 50 units . INSULIN LISPRO (HUMALOG U-100 INSULIN) 100 UNIT/ML INJECTION Use as directed approv. 60 units dailytotal. . INSULIN SYRINGE-NEEDLE U-100 (SURE COMFORT INSULIN SYRINGE) 0.3 ML 31 GAUGE X 5/16" SYRG Use as directed 4 times daily, Dx E11.65 . LANCETS 33 GAUGE MISC USE TO TEST FOUR TIMES DAILY . LIRAGLUTIDE (VICTOZA 2-PUMA) 0.6 MG/0.1 ML (18 MG/3 ML) PEN Inject 1.2 mg under the skin daily . LISINOPRIL (PRINIVIL,ZESTRIL) 20 MG TABLET Take 1 (one) tablet (20 mg total) by mouth daily . METOPROLOL TARTRATE (LOPRESSOR) 25 MG TABLET Take 1 (one) tablet (25 mg total) by mouth 2 (two) times a day . PEN NEEDLE, DIABETIC 31 GAUGE X 5/16" NDLE Use as directed for insulin adm. Insulin and Victoza . TRUE METRIX GLUCOSE TEST STRIP STRIPS To test three times a day. DX code E11.65 . Modified Medications Modified Medication Previous Medication GABAPENTIN (NEURONTIN) 600 MG TABLET gabapentin (NEURONTIN) 600 MG tablet TAKE ONE TABLET BY MOUTH THREE TIMES DAILY Take 1 (one) tablet (600 mg total) by mouth 3 (three) times a day . MELOXICAM (MOBIC) 15 MG TABLET meloxicam (MOBIC) 15 MG tablet TAKE ONE TABLET BY MOUTH ONCE DAILY Take 1 (one) tablet (15 mg total) by mouth daily . PANTOPRAZOLE (PROTONIX) 40 MG TABLET pantoprazole (PROTONIX) 40 MG tablet TAKE ONE TABLET BY MOUTH ONCE DAILY Take 1 (one) tablet (40 mg total) by mouth daily . Discontinued Medications No medications on file Review of Systems Review of Systems Constitutional: Positive for fatigue, irritability and malaise/fatigue. Negative for activity change, appetite change and weight loss. HENT: Negative for sore throat. Respiratory: Negative for cough and shortness of breath. Cardiovascular: Negative for chest pain and palpitations. Gastrointestinal: Negative for abdominal pain, heartburn and melena. Musculoskeletal: Positive for back pain and gait problem. Negative for myalgias and muscle weakness. Neurological: Negative for dizziness, focal weakness, facial asymmetry, light- headedness and headaches. Psychiatric/Behavioral: Negative for agitation. The patient is nervous/anxious and has insomnia. Vitals: 11/03/19 1306 11/03/19 1315 BP: (!) 144/80 (!) 141/92 BP Location: Right arm Patient Position: Sitting BP Cuff Size: X-large Adult Pulse: 76 Resp: 16 Temp: 97.8 F (36.6 C) TempSrc: Temporal SpO2: 95% Weight: 118.2 kg (260 lb 8 oz) Height: 5' 4" Body mass index is 44.71 kg/m . Physical Exam Physical Exam Vitals signs reviewed. Constitutional: Appearance: Normal appearance. She is well-developed. HENT: Head: Normocephalic. Right Ear: External ear normal. Left Ear: External ear normal. Nose: Nose normal. Eyes: General: Lids are normal. Cardiovascular: Rate and Rhythm: Normal rate and regular rhythm. Heart sounds: Normal heart sounds. Pulmonary: Effort: Pulmonary effort is normal. Breath sounds: Normal breath sounds. Musculoskeletal: Normal range of motion. Skin: General: Skin is warm and dry. Neurological: General: No focal deficit present. Mental Status: She is alert and oriented to person, place, and time. Coordination: Coordination is intact. Gait: Gait is intact. Psychiatric: Attention and Perception: Attention normal. Mood and Affect: Mood normal. Speech: Speech normal. Behavior: Behavior normal. Behavior is cooperative. Thought Content: Thought content normal. Cognition and Memory: Cognition normal. Judgment: Judgment normal. OARRS/NARxCHECK Report Received and Assessed: 11/21/19 Date controlled substance agreement signed: 08/22/19 Date of last drug screen: 08/22/19 The 10-year ASCVD risk score (Talat SOSA Jr., et al., 2013) is: 4.3% Values used to calculate the score: Age: 54 years Sex: Female Is Non- : No Diabetic: Yes Tobacco smoker: No Systolic Blood Pressure: 129 mmHg Is BP treated: Yes HDL Cholesterol: 40 mg/dL Total Cholesterol: 138 mg/dL Assessment/Plan Problem List Items Addressed This Visit Digestive Gastroesophageal reflux disease - Primary Controlled well on Protonix. Continue to take as ordered. Cardiovascular and Mediastinum Hypertension Uncontrolled, continue meds, increase activity as can tolerate, limit salt, and watch diet. Continue to monitor blood pressure at home as instructed. Bring blood pressure log and cuff to your next visit. I believe your blood pressure in the office today is elevated to achieve your emotional stress you are under today. Please monitor your blood pressure outside of the office setting at random times throughout the day, being these numbers to your next appointment. Other Hyperlipidemia Continue to take lipitor 40mg daily. Class 3 severe obesity with serious comorbidity and body mass index (BMI) of 45.0 to 49.9 in adult (HCC) Depression with anxiety It was discussed with the patient that medication may help improve her mood however it would take 6to 8 weeks for this medication take effect. Patient states she does not wish to try medication at this time however work on her relationship stressors and hope that they resolve on their own. Goals Reducing Risks Patient SPECIFICALLY identifies the Self Care Behavior Goal of Reducing Risks. Patient will MEASURE progress by: monitoring glucose, engagement in self care foot exam;; A1C <7; BS monitoring; Nutrition, Acitivity) Patient's goal will be ACHIEVED by implementing Resources provided: Handouts, electronic references). Barriers will be: Pt. Engagement, insurance barriers addressed by outreach and education Goal is REALISTIC as evidenced by Confidence level of: unsure 1 month to initiate TIMEFRAME for the goal is: 3 months For any new medications prescribed today, patient was educated about indications for the medication, how to take the medication and potential side effects of the medications. Please note: Portions of this chart may have been created with [employer] voice recognition software. Occasional wrong-word or "sound-like" substitutions may have occurred due to inherent limitations of the voice recognition software. Please read the chart carefully and recognize, using context, where the substitutions have occurred. documented in this encounter* Cachorro Brown PTA - 11/23/2019 1:45 PM EDT [facility] OUTPATIENT REHABILITATION DAILY TREATMENT NOTE Today's Date 11/23/2019 Patient Name: Juana Handy Date of : 1965 Current Visit #: 3 Authorized Visits: 30 Case Name: neck, thoracic, lumbar pain History: Pre-Treatment Pain Scale: 7/10 pain "from bilat shlds down." to begin 9-10/10 pain and numbness in (R) foot to begin treatment Symptoms: soreness and stiffness "all over." Functional Diagnosis: 1. Chronic thoracic spine pain 2. Chronic neck pain 3. Chronic bilateral low back pain, unspecified whether sciatica present Clinical Information: Subjective: Pt note mod-max pain and sx in "bilat shlds all the way down," and also increased pain and numbness in (R) foot to knee to begin. Pt notes feeling better this treatment session other thanreporting nausea but notes that was due to "eating guzman for breakfast this morning and the person making it didn't drain the grease off and she can't eat grease." Pt notes F/U with PCP the other dayand notes messaging neurologist via my chart and report that the "doctor" out her on muscle relaxant 3 times daily and reports that this has decreased the muscle spasms but notes that the pain and sxare still significant and present. Pt notes that doctor didn't say anything in regards to therapy at this time. Objective: Cervical ROM and cervical postural strengthening ex's, all to begin to increase cervicalROM and cervical postural strength. Cont'd back with few ex's per flow sheet while holding on few to progress pt toward set goals in POC within moderation to not increase pain and or sx. Treatments: Physical Therapy Exercise Log - 11/23/19 1355 OTHER Precautions/Contraindications [id number] Notes Yaneli PT, 11/02/2019; 16 Vitals cervical focus Therapeutic Exercise (78068) Intervention supine lying with progression to head flat on table (not tolerated this date) Parameters abdominal brace 5" 2 x 10 Intervention SKTC 2" x 10 (limited ROM on (R) Parameters bridging x 10--NT Intervention thoracic stretching - open book x8 bilat--NT Parameters chin tuck 3" x10 Intervention L radial nerve flossing x8 bilat--NT Parameters Cervical AROM Rot, lat flexion, x 10 bilat while seated PT Treatment Times Therex Total Time 27 Direct Treatment Time 27 Total Treatment Time 27 Goals: Physical Therapy Ortho Goals: Pt would like to improve cervical mobility. Pt will demonstrate increase cervical extension to 25% deficit to improve static posturing within 4weeks. Pt to be compliant with progressive HEP to increase carryover between PT sessions within 2 weeks. Pt to verbalize 5/10 pain to allow for return to all prior ADL's within 8 weeks. Pt will demonstrate proper form while performing a chin tuck and hold within 2 weeks. Pt to demonstrate a 10 point increase in their FOTO outcome measure to signify an increase in functional status within 8 weeks. Eval date: 11/02/2019 Re-cert: 12/01/2019 Visits: 16 Patient Education: Quality of movement, HEP Modification and HEP Adherence with patient demonstrated understanding and verbalized understanding. Post-Treatment Pain Scale: no change in LBP but with decreased pain (R) foot pain Assessment: Patient had an unexpected response to treatment due to unstable pain and sx. Pt required extra time, frequent rest breaks, demo, education, and Vc's for cervical ROM and sequencing, pace,core engagement, breathing technique, LE ROM and lumbar ROM, all to complete ex's per flow sheet and with poor plus return demo. Pt required frequent rest breaks and modifications to exercises throughout. Pt challenged with current ex's. Skilled Intervention demonstrated by modifications of treatment per exercise log including assessment of patient's response and safety interventions per exercise log. Progress towards goals as expected. Plan for Next Visit: Monitor response to todays treatment session and cont to progress toward set goals in POC as tolerated. Cachorro Brown PTA STATE LICENSE, [id number] documented in this encounter* Marianela Fowler, CORPORATE CONSULTANT - 11/21/2019 2:23 PM EDT OFFICE VISIT PROGRESS NOTE Juana Handy is a 54 y.o. female with a past medical history of Patient Active Problem List Diagnosis Lumbar degenerative disc disease Herniated intervertebral disc of lumbar spine Spinal stenosis of lumbar region without neurogenic claudication Uncontrolled type 2 diabetes mellitus with hyperglycemia, with long-term current use of insulin ([facility]) Neuropathy involving both lower extremities Type 2 diabetes mellitus without complication, with long-term current use of insulin ([facility]) H/O spinal fusion Hypertension Hyperlipidemia Fibromyalgia Class 3 severe obesity with serious comorbidity and body mass index (BMI) of 45.0 to 49.9 in adult (HCC) Degenerative disc disease, cervical Gastroesophageal reflux disease Chronic neck pain Chronic thoracic spine pain Chronic bilateral low back pain Depression with anxiety who presents to the office today for 3-month follow-up on her neuropathy. Patient is also asking surgical clearance which can get 18 teeth pulled this is to be done under light IV sedation within the dentist office and administered by an anesthesiologist. At this time I see no reason why the patient cannot proceed with this form sent to the office by the dentist office has been completed and is to be faxed back. Neuropathy: Chronic problem, symptoms minimally controlled with gabapentin 600 mg 3 times daily. Patient continues to have severe muscle spasms in her back, and was started on flexeril by Neurosurgery patient is scheduled to have follow- up with neurosurgery on December 13. Patient continues to go to physical therapy as well. Patient continues to walk with a cane. Symptoms include numbness and tingling in bilateral legs with weakness. Gabapentin allows patient to have some ability so she can do activities of daily living such as cleaning and bathing. Hypertension This is a chronic problem. The current episode started more than 1 year ago. The problem has been waxing and waning since onset. The problem is controlled. Associated symptoms include anxiety, malaise/fatigue and neck pain. Pertinent negatives include no blurred vision, chest pain, headaches, orthopnea, palpitations, peripheral edema, PND, shortness of breath or sweats. There are no associated agents to hypertension. Risk factors for coronary artery disease include family history, dyslipidemia,obesity, post-menopausal state, stress and sedentary lifestyle. The current treatment provides significant improvement. Compliance problems include diet. Health Maintenance Topic Date Due Hepatitis C Screening 1965 Wellness Visit 1968 Ophthalmology Exam 1975 Zoster Vaccines (1 of 2) 2015 Urine Microalbumin 08/23/2019 Mammogram 12/10/2019 A1C 02/03/2020 Pap Smear 04/28/2020 Foot Exam 08/05/2020 Tetanus: Every 10yrs 07/11/2021 Colorectal Cancer Screening: Colonoscopy 05/07/2027 Sequential Influenza Vaccine Completed The following portions of the patient's history were reviewed and updated as appropriate: allergies, current medications and problem list. Family History Problem Relation Age of Onset Lung cancer Father Heart failure Father Heart disease Father Diabetes Brother Heart disease Brother Bone cancer Maternal Grandmother Heart failure Maternal Grandmother Stroke Maternal Grandmother Cancer Half-Sister unknown cancer (mother in common) Heart disease Sister Diabetes Sister Mental illness Daughter Cancer Paternal Grandmother Social History Socioeconomic History Marital status: Spouse name: Not on file Number of children: Not on file Years of education: Not on file Highest education level: Not on file Occupational History Not on file Social Needs Financial resource strain: Somewhat hard Food insecurity Worry: Sometimes true Inability: Sometimes true Transportation needs Medical: No Non-medical: No Tobacco Use Smoking status: Never Smoker Smokeless tobacco: Never Used Substance and Sexual Activity Alcohol use: No Drug use: No Sexual activity: Not Currently Lifestyle Physical activity Days per week: Not on file Minutes per session: Not on file Stress: Not on file Relationships Social connections Talks on phone: Three times a week Gets together: Once a week Attends religion service: Not on file Active member of club or organization: Not on file Attends meetings of clubs or organizations: Not on file Relationship status: Not on file Other Topics Concern Not on file Social History Narrative Not on file Past Surgical History: Procedure Laterality Date BONE MARROW BIOPSY W/ ASPIRATION 06/04/2018 ........Dr. Pat BREAST BIOPSY Left 10/12/2017 Stereo-proliferative fibrocystic changes and associated microcalcifications, focal pseudoangiomatous stromal hyperplasia CATARACT EXTRACTION, BILATERAL COLONOSCOPY 37 years old..Diverticulitis COLONOSCOPY 05/07/2017 diverticulosis, signle polyp in sigmoid, internal hermorrhoids...Dimitris DILATION AND CURETTAGE OF UTERUS for utreine bleeding LUMBAR FUSION 10/19/2017 Allergies Allergen Reactions Latex Rash Patient's Medications New Prescriptions No medications on file Previous Medications ALCOHOL PREP PADS PADM Use as directed 4x daily. DX code E11.65 . AMMONIUM LACTATE (LAC-HYDRIN) 12 % LOTION Apply topically 2 (two) times a day as needed for dry skin . ASPIRIN 81 MG EC TABLET Take 81 mg by mouth daily. ATORVASTATIN (LIPITOR) 40 MG TABLET Take 1 (one) tablet (40 mg total) by mouth at bedtime . BLOOD-GLUCOSE METER (TRUE METRIX GLUCOSE METER) [facility] Use to check BG 3x daily. DX code E11.65 NeedsTrue Metrix Meter . CYCLOBENZAPRINE (FLEXERIL) 5 MG TABLET Take 1 (one) tablet (5 mg total) by mouth 3 (three) times a day as needed for muscle spasms . DULOXETINE (CYMBALTA) 60 MG CAPSULE Take 1 (one) capsule (60 mg total) by mouth daily . GABAPENTIN (NEURONTIN) 600 MG TABLET TAKE ONE TABLET BY MOUTH THREE TIMES DAILY GLIMEPIRIDE (AMARYL) 2 MG TABLET Take 1 tablet PO BID . INSULIN GLARGINE (BASAGLAR KWIKPEN U-100 INSULIN) 100 UNIT/ML (3 ML) INPN Use nightly as directed, approx 50 units . INSULIN LISPRO (HUMALOG U-100 INSULIN) 100 UNIT/ML INJECTION Use as directed approv. 60 units dailytotal. . INSULIN SYRINGE-NEEDLE U-100 (SURE COMFORT INSULIN SYRINGE) 0.3 ML 31 GAUGE X 5/16" SYRG Use as directed 4 times daily, Dx E11.65 . LANCETS 33 GAUGE MISC USE TO TEST FOUR TIMES DAILY . LIRAGLUTIDE (VICTOZA 2-PUMA) 0.6 MG/0.1 ML (18 MG/3 ML) PEN Inject 1.2 mg under the skin daily . LISINOPRIL (PRINIVIL,ZESTRIL) 20 MG TABLET Take 1 (one) tablet (20 mg total) by mouth daily . MELOXICAM (MOBIC) 15 MG TABLET TAKE ONE TABLET BY MOUTH ONCE DAILY METOPROLOL TARTRATE (LOPRESSOR) 25 MG TABLET Take 1 (one) tablet (25 mg total) by mouth 2 (two) times a day . PANTOPRAZOLE (PROTONIX) 40 MG TABLET TAKE ONE TABLET BY MOUTH ONCE DAILY PEN NEEDLE, DIABETIC 31 GAUGE X 5/16" NDLE Use as directed for insulin adm. Insulin and Victoza . TRUE METRIX GLUCOSE TEST STRIP STRIPS To test three times a day. DX code E11.65 . Modified Medications No medications on file Discontinued Medications No medications on file Review of Systems Review of Systems Constitutional: Positive for malaise/fatigue. Negative for activity change, appetite change and fatigue. Eyes: Negative for blurred vision. Respiratory: Negative for cough and shortness of breath. Cardiovascular: Negative for chest pain, palpitations, orthopnea and PND. Musculoskeletal: Positive for neck pain. Neurological: Negative for dizziness, facial asymmetry, light-headedness and headaches. Psychiatric/Behavioral: Negative for agitation. The patient is not nervous/anxious. Vitals: 11/21/19 1410 11/21/19 1429 BP: (!) 131/91 129/86 BP Location: Right arm Patient Position: Sitting BP Cuff Size: X-large Adult Pulse: 92 Resp: 16 Temp: 98 F (36.7 C) TempSrc: Temporal SpO2: 95% Weight: 116.9 kg (257 lb 11.2 oz) Height: 5' 4" Body mass index is 44.23 kg/m . Physical Exam Physical Exam Vitals signs reviewed. Constitutional: Appearance: Normal appearance. She is well-developed. HENT: Head: Normocephalic. Right Ear: External ear normal. Left Ear: External ear normal. Nose: Nose normal. Eyes: General: Lids are normal. Cardiovascular: Rate and Rhythm: Normal rate and regular rhythm. Heart sounds: Normal heart sounds. Pulmonary: Effort: Pulmonary effort is normal. Breath sounds: Normal breath sounds. Musculoskeletal: Normal range of motion. Skin: General: Skin is warm and dry. Neurological: General: No focal deficit present. Mental Status: She is alert and oriented to person, place, and time. Coordination: Coordination is intact. Gait: Gait is intact. Psychiatric: Attention and Perception: Attention normal. Mood and Affect: Mood normal. Speech: Speech normal. Behavior: Behavior normal. Behavior is cooperative. Thought Content: Thought content normal. Cognition and Memory: Cognition normal. Judgment: Judgment normal. OARRS/NARxCHECK Report Received and Assessed: 11/21/19 Date controlled substance agreement signed: 08/22/19 Date of last drug screen: 08/22/19 The 10-year ASCVD risk score (Talat SOSA Jr., et al., 2013) is: 4.3% Values used to calculate the score: Age: 54 years Sex: Female Is Non- : No Diabetic: Yes Tobacco smoker: No Systolic Blood Pressure: 129 mmHg Is BP treated: Yes HDL Cholesterol: 40 mg/dL Total Cholesterol: 138 mg/dL Assessment/Plan Problem List Items Addressed This Visit Cardiovascular and Mediastinum Hypertension - Primary Stable, continue meds, increase activity as can tolerate, limit salt, and watch diet. Continue to monitor blood pressure at home as instructed. Bring blood pressure log and cuff to your next visit. Nervous and Auditory Neuropathy involving both lower extremities Continue to take gabapentin as ordered. Please return to the office in 6 months for follow-up. Goals Reducing Risks Patient SPECIFICALLY identifies the Self Care Behavior Goal of Reducing Risks. Patient will MEASURE progress by: monitoring glucose, engagement in self care foot exam;; A1C <7; BS monitoring; Nutrition, Acitivity) Patient's goal will be ACHIEVED by implementing Resources provided: Handouts, electronic references). Barriers will be: Pt. Engagement, insurance barriers addressed by outreach and education Goal is REALISTIC as evidenced by Confidence level of: unsure 1 month to initiate TIMEFRAME for the goal is: 3 months For any new medications prescribed today, patient was educated about indications for the medication, how to take the medication and potential side effects of the medications. Please note: Portions of this chart may have been created with Gridstore voice recognition software. Occasional wrong-word or "sound-like" substitutions may have occurred due to inherent limitations of the voice recognition software. Please read the chart carefully and recognize, using context, where the substitutions have occurred. documented in this encounter* Yaneli Diane, PT - 11/30/2019 3:15 PM EDT [facility] OUTPATIENT REHABILITATION DAILY TREATMENT NOTE Today's Date 11/30/2019 Patient Name: Juana Handy Date of : 1965 Current Visit #: 4 Authorized Visits: 30 Case Name: neck, thoracic, lumbar pain History: Pre-Treatment Pain Scale: Back 9/10, neck 7/10 Symptoms: stabilized Functional Diagnosis: 1. Chronic thoracic spine pain 2. Chronic bilateral low back pain, unspecified whether sciatica present 3. Chronic neck pain Clinical Information: Subjective: Patient reports minimal change in symptoms. Patient is on Flexeril 3x/day. Patient did several loads of laundry a few days ago and had back spasms afterwards. Has appointment with Neurologist on 12/14/19. Patient has been sleeping in lunge chair. Objective Able to complete chin tucks with good technique but only 2 second hold d/t increase in pain. Antalgia with cervical rotation with slow head turns, but able to move quick rotation to right withresponse to sound on her right. Cervical Spine: Range of Motion - Cervical Extension Loss: 75% Rt Rotation Loss: 25% Lt Rotation Loss: 25% Rt Side Bend Loss: 50% Lt. Side Bend Loss: 50% Treatments: Physical Therapy Exercise Log - 11/30/19 1524 OTHER Precautions/Contraindications 3:25-4:00 Lolly [place] PT, 11/02/2019; 16 Therapeutic Exercise (81076) Parameters abdominal brace 5" x 10 Intervention SKTC 2" x 10 (limited ROM on (R) Intervention thoracic stretching - open book x10 bilat Parameters chin tuck 3" x10 Parameters Cervical AROM Rot, lat flexion, x 10 bilat while seated Intervention scapular retractions 5 seconds x 10 Goals: Physical Therapy Ortho Goals: Pt would like to improve cervical mobility. Pt will demonstrate increase cervical extension to 25% deficit to improve static posturing within 4weeks. Pt to be compliant with progressive HEP to increase carryover between PT sessions within 2 weeks. Pt to verbalize 5/10 pain to allow for return to all prior ADL's within 8 weeks. Pt will demonstrate proper form while performing a chin tuck and hold within 2 weeks. Pt to demonstrate a 10 point increase in their FOTO outcome measure to signify an increase in functional status within 8 weeks. Eval date: 11/02/2019 Re-cert: 12/01/2019 Visits: 16 Patient Education: Quality of movement with patient verbalized understanding. Post-Treatment Pain Scale: 8 Assessment: Patient had an unexpected response to treatment due to Higher than anticipated pain levels. Added open book but with minimal thoracic rotation. Skilled Intervention demonstrated by modifications of treatment per exercise log including modification of exercises d/t pain and safety interventions per exercise log. Progress towards goals unexpected due to higher than anticipated complexity. Plan for Next Visit: Treatment Visit with focus on core/cervical/posture strengthening Yaneli Diane, PT State License, [id number] documented in this encounter* Garima Combs, JOVANA - 12/05/2019 1:06 PM EDT Patient ID: Juana Handy is a 54 y.o. female 1965 Telephone visit via Phone Call Subjective: Patient ID: Juana Handy is a 54 y.o. female on the phone for follow-up of Type 2 diabetes Patient phone : [phone] This visit has been fully reviewed with the patient and verbal consent has been obtained. Patient denies any complaints today. She has been feeling well. Her blood sugars were reviewed overthe phone. She reports being greater than 200 most of the day. She did not have any labs before herupcoming visit for review. She reports that she is got a lot of stress in her life due to her home situation with her landlord which is why she believes her blood sugars running higher than usual. No outpatient medications have been marked as taking for the 12/05/19 encounter (Appointment) with Garima Combs CNP. Review of Systems: Review of Systems Constitutional: Negative for appetite change and fatigue. Eyes: Negative for visual disturbance. Respiratory: Negative for cough, chest tightness, shortness of breath and wheezing. Cardiovascular: Negative for chest pain, palpitations and leg swelling. Gastrointestinal: Negative for abdominal pain, constipation, diarrhea, nausea and vomiting. Endocrine: Negative for polydipsia, polyphagia and polyuria. Genitourinary: Negative for dysuria and frequency. Musculoskeletal: Positive for back pain and gait problem. Negative for arthralgias and myalgias. Neurological: Positive for numbness. Negative for weakness and headaches. The following portions of the patient's history were reviewed and updated as appropriate: allergies, current medications, past family history, past medical history, past social history, past surgicalhistory and problem list. Objective: Laboratory Review: Lab Results Component Value Date HGBA1C 9.2 (A) 08/05/2019 Glucose (mg/dL) Date Value 05/16/2019 98 Creatinine (mg/dL) Date Value 05/16/2019 0.84 08/23/2018 0.87 Lab Results Component Value Date CHOL 138 04/28/2019 TRIG 183 (H) 04/28/2019 HDL 40 04/28/2019 LDLCALC 61 04/28/2019 Lab Results Component Value Date TSH 2.83 08/23/2018 Lab Results Component Value Date WBC 11.58 (H) 04/19/2019 HGB 12.3 04/19/2019 HCT 37.2 04/19/2019 MCV 84.0 04/19/2019 PLT 318 04/19/2019 Date: No labs done recently Assessment/Plan: Dx: 1. Uncontrolled type 2 diabetes mellitus with hyperglycemia, with long-term current use of insulin (HCC) 2. Hypertension, unspecified type 3. Hyperlipidemia, unspecified hyperlipidemia type 4. Neuropathy involving both lower extremities Type 2 diabetes, under fair control Currently taking: Admelog 20u with meals Basaglar 50 units QHS. Victoza 1.2 mg daily Glimepiride 2 mg twice a day Current Hemoglobin A1C= 9.2% 08/05/19 Lab Results Component Value Date HGBA1C 9.2 (A) 08/05/2019 HGBA1C 9.4 (H) 04/28/2019 HGBA1C 8.1 (A) 12/29/2018 Weight trend: is stable Current diet: carb controlled Current exercise: none Current monitoring regimen: home blood tests - 3 times daily Home blood sugar records: Fasting B Pre-lunch B-300 Pre-supper B-300 Any episodes of hypoglycemia? no NOTES: PLAN: See below Brief review as indicated: Retinopathy: - Nephropathy:- Peripheral Neuropathy: + On Neurontin Hyperlipidemia: + Hypertension: + Cardiac: - Vascular: - Feet: - Thyroid: - Other: Plan: 1. Rx changes: See insulin dose adjustments below Basaglar insulin: 55 units at bedtime Admelog 23 units at breakfast, 23 units at lunch, 23 units at dinner Glimepiride 2 mg twice daily Victoza 1.2 mg daily The above changes are made to the patient's insulin regimen. She was asked to call our office in 1 week with blood sugar readings we can make adjustments to her insulin again if needed. 2. Education: Reviewed ABCs of diabetes management (respective goals in parentheses): A1C (7.0-8.0), blood pressure (<130/80), and cholesterol (LDL <100). 3. Compliance at present is estimated to be fair. Efforts to improve compliance (if necessary) willbe directed at dietary modifications: CHO controlled and regular blood sugar monitorin times daily. Also, will be directed at dietary modifications: Limit starches, carbohydrates and concentratedsugar sources 4. Follow up: 3 months Provider location: [facility] Tr[facility] PADILLA (11) [facility] [address] [facility] [address] Patient location: [address] [place] [address] I have spent 11-20 minutes with the patient discussing current HPI. No orders of the defined types were placed in this encounter. Electronically signed by Garima AARON 201:06 PM documented in this encounter* Keven Alanis MD - 01/31/2020 9:18 AM EDT [facility] - Neurology Trish Padilla, Medical Office Building [address] [place] [address] Nerve Conduction Study and Electromyography (EMG) Report Patient: Juana Handy Sex: Female Date of : 1965 Visit Date: 01/31/2020 08:58 Age: 54 Years Examining MD: Keven Alanis MD Referred by: YVETTE Fowler Temperature: 30.2 Current Height: 5 feet 4 inch Referred for: BUE pain, numbness and paresthesias for years. + LBP. + DM. Plan: This study is design to evaluate for radiculopathy, plexopathy, entrapment neuropathy or polyneuropathy. Indication, risk, side effects, complications were explained. Patient agree to proceed. Patient was instructed to clean the puncture site with soap and water and put some ice pack for bruising. EMG Summary: The bilateral peroneal motor nerve conduction study showed normal distal latency, reduced amplitude and decreased conduction velocity. The bilateral tibial motor nerve conduction study showed normal distal latency, decreased level amplitude and decreased right conduction velocity. The bilateral sural and superficial peroneal sensory nerve conduction study was absent. Lateral tibial H reflexes were also absent. Needle EMG of the muscle tested showed no abnormal spontaneous activity. Normal motor unit action potentials and recruitment patterns were seen. Impression: This is an abnormal EMG. 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 NO clear electrodiagnostic evidence of a bilateral lumbosacral radiculopathy, or plexopathy at this time. Keven Alanis MD Diplomate, ABPN, NBPAS Clinical Neurophysiology, Neurology, Vascular Neurology and Sleep Medicine [facility] [place] [phone] Nota bene: Portions of this chart was created using Gridstore voice recognition software. Occasional wrong-word or "sound-like" substitutions may have occurred due to inherent limitations of the voice recognition software. Please read the chart carefully and recognize, using context, where the substitutions have occurred. Motor NCS Nerve / Sites Muscle Latency Amplitude Distance Velocity ms mV cm m/s R Deep peroneal (Fibular) - EDB Ankle EDB 5.06 2.1 8.5 Fib Head EDB 13.00 1.6 30.5 38.4 Knee EDB 14.42 1.6 7 49.4 L Deep peroneal (Fibular) - EDB Ankle EDB 4.81 4.3 8.5 Fib Head EDB 12.35 3.0 28 37.1 Knee EDB 13.60 3.2 7 56.0 R Tibial - AH Ankle AH 4.83 4.8 8 Knee AH 15.73 0.4 40 36.7 L Tibial - AH Ankle AH 5.25 3.2 8 Knee AH 15.04 0.4 40 40.9 Sensory NCS Nerve / Sites Rec. Site Onset Lat Peak Amp Distance Velocity ms ms V cm m/s R Sural - Lat Mall Calf Lat Mall NR NR NR 14 NR L Sural - Lat Mall Calf Lat Mall NR NR NR 14 NR R Superficial peroneal - Ankle Lat leg Ankle NR NR NR 14 NR L Superficial peroneal - Ankle Lat leg Ankle NR NR NR 14 NR H Reflex Nerve H Lat ms R Tibial - Soleus 0.00 L Tibial - Soleus 0.00 EMG Summary Table Spontaneous Activity Amplitude Duration Activation Recruitment Polyphasia Comment Muscle Ins Act Fib PSW Fasc - - - - - - L. Vastus lateralis Normal 0 0 0 Normal Normal Normal Normal Normal Normal L. Semitendinosus Normal 0 0 0 Normal Normal Normal Normal Normal Normal L. Tibialis anterior Normal 0 0 0 Normal Normal Normal Normal Normal Normal L. Gastrocnemius (Medial head) Normal 0 0 0 Normal Normal Normal Normal Normal Normal L. Abductor hallucis Normal 0 0 0 Normal Normal Normal Normal Normal Normal L. Lumbar paraspinals Normal 0 0 0 Normal Normal Normal Normal Normal Normal R. Vastus lateralis Normal 0 0 0 Normal Normal Normal Normal Normal Normal R. Semitendinosus Normal 0 0 0 Normal Normal Normal Normal Normal Normal R. Tibialis anterior Normal 0 0 0 Normal Normal Normal Normal Normal Normal R. Gastrocnemius (Medial head) Normal 0 0 0 Normal Normal Normal Normal Normal Normal R. Abductor hallucis Normal 0 0 0 Normal Normal Normal Normal Normal Normal R. Lumbar paraspinals Normal 0 0 0 Normal Normal Normal Normal Normal Normal documented in this encounter* Marianela Fowler CNP - 02/01/2020 10:42 AM EDT For the carpel tunnel, she would need to see orthopedics for repair, as for the neuropathy - she already takes gabapentin there is nothing more that we can do. I can refer to pain management if she would like. Thank you * Timothy Rojas LPN - 02/01/2020 10:38 AM EDT Please advise next steps * Marianela Fowler CNP - 02/01/2020 10:19 AM EDT Please let the patient know that she does have left ulnar entrapment (carpel tunnel) as well as neuropathy in the left. There were no abnormal findings in the right wrist/arm * Keven Alanis MD - 02/01/2020 9:43 AM EDT [facility] - Neurology [address] [place] [address], Medical Office Building [address] [place] [address] Nerve Conduction Study and Electromyography (EMG) Report Patient: Juana Handy Sex: Female Date of : 1965 Visit Date: 02/01/2020 09:23 Age: 54 Years Examining MD: Keven Alanis MD Referred by: YVETTE Fowler Temperature: 32.2 Current Height: 5 feet 4 inch Referred for: BUE numbness and paresthesias for 6 months. + neck pain. Plan: The study is design to evaluate for radiculopathy, plexopathy, entrapment neuropathy, median or ulnar neuropathy. Indication, risk, side effects, and alternatives were explained. Patient agreedto proceed. Patient was instructed to clean the puncture site with soap and water and put some ice pack for bruising. EMG Summary: The right median motor nerve conduction study showed normal latency and amplitude withreduced conduction velocity. The left median motor nerve conduction study was normal. Bilateral median sensory nerve conduction study showed normal latency and reduced amplitudes. Right ulnar motor nerve conduction study was normal. The left ulnar motor nerve conduction study showed normal latency and amplitude with reduced conduction velocity across the elbow to 40.3 m/s. Bilateral ulnar sensory nerve conduction study showed normal latency and reduced amplitude. Bilateral radial sensory nerve conduction study showed normal latency and reduced amplitude. Needle EMG of the muscles tested showed no abnormal spontaneous activity. Normal motor unit action potentials and recruitment patterns were seen. Impression: This is an abnormal EMG. There is electrodiagnostic evidence of a left ulnar nerve entrapment across the elbow with some sensory axonal damage. The reduced amplitudes may be suggestive ofa diffuse axonal sensorimotor polyneuropathy. There is NO electrodiagnostic evidence of bilateral cervical radiculopathy, brachial plexopathy, median nerve entrapment at the wrists, or right ulnar neuropathy at this time. Keven Alanis MD Diplomate, ABPN, NBPAS Clinical Neurophysiology, Neurology, Vascular Neurology and Sleep Medicine [place] [phone] Nota bene: Portions of this chart was created using Gridstore voice recognition software. Occasional wrong-word or "sound-like" substitutions may have occurred due to inherent limitations of the voice recognition software. Please read the chart carefully and recognize, using context, where the substitutions have occurred. Motor NCS Nerve / Sites Muscle Latency Amplitude Distance Velocity ms mV cm m/s R Median - APB Wrist APB 4.46 4.9 7 Elbow APB 8.63 4.9 20 48.0 L Median - APB Wrist APB 4.06 4.3 7 Elbow APB 8.04 3.9 20.5 51.5 R Ulnar - ADM Wrist ADM 2.98 8.5 6.5 B.Elbow ADM 6.71 8.4 21 56.3 A.Elbow ADM 8.96 7.8 11.5 51.1 L Ulnar - ADM Wrist ADM 3.02 7.6 6.5 B.Elbow ADM 6.71 7.3 20 54.2 A.Elbow ADM 9.44 6.7 11 40.3 Sensory NCS - CTS Nerve / Sites Segments Peak Lat Amp Dist Lat Diff Velocity ms V cm ms m/s R Median - Ulnar PALMAR Med Palm Med Palm - Med Wrist 2.25 24.4 8 46.3 Uln Palm Uln Palm - Uln Wrist 1.71 6.5 8 60.0 Med Palm - Uln Palm 0.54 L Median - Ulnar PALMAR Med Palm Med Palm - Med Wrist 2.13 47.6 8 47.4 Uln Palm Uln Palm - Uln Wrist 1.94 4.7 8 50.5 Med Palm - Uln Palm 0.19 Sensory NCS Nerve / Sites Rec. Site Onset Lat Peak Amp Distance Velocity ms ms V cm m/s R Radial - Snuff Forearm Snuff 1.63 2.29 10.2 10 62 L Radial - Snuff Forearm Snuff 1.42 1.96 11.0 10 71 EMG Summary Table Spontaneous Activity Amplitude Duration Activation Recruitment Polyphasia Comment Muscle Ins Act Fib PSW Fasc - - - - - - L. Deltoid Normal 0 0 0 Normal Normal Normal Normal Normal Normal L. Triceps brachii Normal 0 0 0 Normal Normal Normal Normal Normal Normal L. Biceps brachii Normal 0 0 0 Normal Normal Normal Normal Normal Normal L. Pronator teres Normal 0 0 0 Normal Normal Normal Normal Normal Normal L. Extensor digitorum communis Normal 0 0 0 Normal Normal Normal Normal Normal Normal L. Flexor carpi ulnaris Normal 0 0 0 Normal Normal Normal Normal Normal Normal L. Flexor digitorum profundus, dig 4 & 5 Normal 0 0 0 Normal Normal Normal Normal Normal Normal L. Abductor digiti minimi (manus) Normal 0 0 0 Normal Normal Normal Normal Normal Normal L. First dorsal interosseous Normal 0 0 0 Normal Normal Normal Normal Normal Normal L. Abductor pollicis brevis Normal 0 0 0 Normal Normal Normal Normal Normal Normal L. Cervical paraspinals Normal 0 0 0 Normal Normal Normal Normal Normal Normal R. Deltoid Normal 0 0 0 Normal Normal Normal Normal Normal Normal R. Triceps brachii Normal 0 0 0 Normal Normal Normal Normal Normal Normal R. Biceps brachii Normal 0 0 0 Normal Normal Normal Normal Normal Normal R. Pronator teres Normal 0 0 0 Normal Normal Normal Normal Normal Normal R. Extensor digitorum communis Normal 0 0 0 Normal Normal Normal Normal Normal Normal R. Flexor carpi ulnaris Normal 0 0 0 Normal Normal Normal Normal Normal Normal R. Flexor digitorum profundus, dig 4 & 5 Normal 0 0 0 Normal Normal Normal Normal Normal Normal R. Abductor digiti minimi (manus) Normal 0 0 0 Normal Normal Normal Normal Normal Normal R. First dorsal interosseous Normal 0 0 0 Normal Normal Normal Normal Normal Normal R. Abductor pollicis brevis Normal 0 0 0 Normal Normal Normal Normal Normal Normal documented in this encounter* Marianela Fowler, JOVANA - 02/29/2020 9:20 AM EDT OFFICE VISIT PROGRESS NOTE Juana Handy is a 54 y.o. female with a past medical history of Patient Active Problem List Diagnosis Lumbar degenerative disc disease Herniated intervertebral disc of lumbar spine Spinal stenosis of lumbar region without neurogenic claudication Uncontrolled type 2 diabetes mellitus with hyperglycemia, with long-term current use of insulin ([facility]) Neuropathy involving both lower extremities Type 2 diabetes mellitus without complication, with long-term current use of insulin ([facility]) H/O spinal fusion Essential hypertension Hyperlipidemia Fibromyalgia Class 3 severe obesity with serious comorbidity and body mass index (BMI) of 45.0 to 49.9 in adult ([facility]) Degenerative disc disease, cervical Gastroesophageal reflux disease Chronic neck pain Chronic thoracic spine pain Chronic bilateral low back pain Depression with anxiety Intractable vomiting Anxiety Yeast infection of the skin who presents to the office today for anxiety, hypertension, depression. Patient is under a significant amount of stress currently which is causing her to have severe anxiety attacks. These anxiety attacks also are resulting in elevated blood pressures. Patient states that she is developed significant headaches and has been chronically. Patient states that the only reason her blood pressure is good today is because she turned her telephone off last night and has not looked at it or talk to anybody since last evening. Patient states that her stress level has declined since she has not spoken with anybody. It was discussed with the patient that she needs to be able to disconnect with anyone who is currently causing her significant amount of stress. Patient voiced understanding. It was explained to the patient as long as her anxiety and depression is not well controlled on herblood pressure will remain elevated. Hypertension This is a chronic problem. The current episode started more than 1 year ago. The problem has been waxing and waning since onset. The problem is controlled. Associated symptoms include anxiety and headaches. Pertinent negatives include no blurred vision, chest pain, malaise/fatigue, neck pain, orthopnea, palpitations, peripheral edema, PND, shortness of breath or sweats. There are no associated agents to hypertension. Risk factors for coronary artery disease include family history and dyslipidemia. The current treatment provides significant improvement. Anxiety Presents for initial visit. Onset was 1 to 4 weeks ago. The problem has been waxing and waning. Symptoms include depressed mood, excessive worry, insomnia, irritability, muscle tension, nervous/anxious behavior and panic. Patient reports no chest pain, dizziness, palpitations or shortness of breath. Symptoms occur constantly. The severity of symptoms is causing significant distress. The symptoms are aggravated by family issues, specific phobias and social activities. The quality of sleep is poor. Nighttime awakenings: several. Her past medical history is significant for depression. Past treatments include nothing. Depression Visit Type: initial Onset of symptoms: 1-4 weeks ago Patient presents with the following symptoms: depressed mood, excessive worry, fatigue, feelings ofhopelessness, feelings of worthlessness, insomnia, irritability, muscle tension, nervousness/anxiety and panic. Patient is not experiencing: palpitations and shortness of breath. Frequency of symptoms: constantly Severity: interfering with daily activities Aggravated by: family issues and social activities Sleep quality: poor Nighttime awakenings: several Risk factors: major life event Rash This is a new problem. The current episode started more than 1 month ago. The problem has been waxing and waning since onset. Location: Groin folds. The rash is characterized by dryness, redness, scaling and burning. It is unknown if there was an exposure to a precipitant. Pertinent negatives include no cough, fatigue or shortness of breath. Past treatments include anti-itch cream. The treatment provided mild relief. Over the last 2 weeks, how often have you been bothered by the following problems? Feeling nervous, anxious or on edge: Several days Not being able to stop or control worrying: Several days Worrying too much about different things: Several days Trouble relaxing: Several days Being so restless that it is hard to sit still: Not at all Becoming easily annoyed or irritable: Several days Feeling afraid as if something awful might happen: Not at all JUN-7 Score: 5 PHQ-9 Depression Screening - 02/29/20 0900 Over the last 2 weeks, how often have you been bothered by any of the following problems? (Retired)Little interest or pleasure in doing things Little interest or pleasure in doing things 1 (Retired)Feeling down, depressed, or hopeless Feeling down, depressed, or hopeless 1 PHQ-2 Total Score 2 Trouble falling or staying asleep, or sleeping too much 2 Feeling tired or having little energy 1 Poor appetite or overeating 1 Feeling bad about yourself - or that you are a failure or have let yourself or your family down 1 Trouble concentrating on things, such as reading the newspaper or watching television 1 Moving or speaking so slowly that other people could have noticed. Or the opposite - being so fidgety or restless that you have been moving around a lot more than usual 0 Thoughts that you would be better off , or of hurting yourself in some way 0 PHQ-9 Total Score 8 RETIRED - PHQ-9 Total Score If you checked off any problems, how difficult have these problems made it for you to do your work,take care of things at home, or get along with other people? Not difficult at all PHQ-2 Total Score Health Maintenance Topic Date Due Hepatitis C Screening 1965 Wellness Visit 1968 Ophthalmology Exam 1975 Zoster Vaccines (1 of 2) 2015 Pap Smear 04/28/2020 Foot Exam 08/05/2020 A1C 09/01/2020 Mammogram 01/26/2021 Urine Microalbumin 03/02/2021 Tetanus: Every 10yrs 07/11/2021 Colorectal Cancer Screening: Colonoscopy 05/07/2027 Sequential Influenza Vaccine Completed The following portions of the patient's history were reviewed and updated as appropriate: allergies, current medications and problem list. Family History Problem Relation Age of Onset Lung cancer Father Heart failure Father Heart disease Father Diabetes Brother Heart disease Brother Bone cancer Maternal Grandmother Heart failure Maternal Grandmother Stroke Maternal Grandmother Cancer Half-Sister unknown cancer (mother in common) Heart disease Sister Diabetes Sister Mental illness Daughter Cancer Paternal Grandmother Social History Socioeconomic History Marital status: Spouse name: Not on file Number of children: Not on file Years of education: Not on file Highest education level: Not on file Occupational History Not on file Social Needs Financial resource strain: Somewhat hard Food insecurity Worry: Sometimes true Inability: Sometimes true Transportation needs Medical: No Non-medical: No Tobacco Use Smoking status: Never Smoker Smokeless tobacco: Never Used Substance and Sexual Activity Alcohol use: No Drug use: No Sexual activity: Not Currently Lifestyle Physical activity Days per week: Not on file Minutes per session: Not on file Stress: Not on file Relationships Social connections Talks on phone: Three times a week Gets together: Once a week Attends religion service: Not on file Active member of club or organization: Not on file Attends meetings of clubs or organizations: Not on file Relationship status: Not on file Other Topics Concern Not on file Social History Narrative Not on file Past Surgical History: Procedure Laterality Date BONE MARROW BIOPSY W/ ASPIRATION 06/04/2018 ........Dr. Pat BREAST BIOPSY Left 10/12/2017 Stereo-proliferative fibrocystic changes and associated microcalcifications, focal pseudoangiomatous stromal hyperplasia CATARACT EXTRACTION, BILATERAL COLONOSCOPY 37 years old..Diverticulitis COLONOSCOPY 05/07/2017 diverticulosis, signle polyp in sigmoid, internal hermorrhoids...Dimitris DILATION AND CURETTAGE OF UTERUS for utreine bleeding LUMBAR FUSION 10/19/2017 Allergies Allergen Reactions Latex Rash Patient's Medications New Prescriptions BUSPIRONE (BUSPAR) 10 MG TABLET Take 1 (one) tablet (10 mg total) by mouth 3 (three) times a day . FLUCONAZOLE (DIFLUCAN) 100 MG TABLET Take 1 (one) tablet (100 mg total) by mouth daily for 7 days . NYSTATIN (MYCOSTATIN) OINTMENT Apply topically 2 (two) times a day . Previous Medications ALCOHOL PREP PADS PADM Use as directed 4x daily. DX code E11.65 . ASPIRIN 81 MG EC TABLET Take 81 mg by mouth daily. ATORVASTATIN (LIPITOR) 40 MG TABLET Take 1 (one) tablet (40 mg total) by mouth at bedtime . BLOOD PRESSURE MONITOR (BLOOD PRESSURE KIT) KIT To monitor blood pressure twice daily . BLOOD-GLUCOSE METER (TRUE METRIX GLUCOSE METER) MISC Use to check BG 3x daily. DX code E11.65 NeedsTrue Metrix Meter . DULOXETINE (CYMBALTA) 60 MG CAPSULE Take 1 (one) capsule (60 mg total) by mouth daily . GABAPENTIN (NEURONTIN) 600 MG TABLET TAKE ONE TABLET BY MOUTH THREE TIMES DAILY GLIMEPIRIDE (AMARYL) 2 MG TABLET Take 1 tablet PO BID . INSULIN GLARGINE (BASAGLAR KWIKPEN U-100 INSULIN) 100 UNIT/ML (3 ML) INPN Use nightly as directed, approx 50 units . INSULIN LISPRO (HUMALOG U-100 INSULIN) 100 UNIT/ML INJECTION Use as directed approv. 60 units dailytotal. . INSULIN SYRINGE-NEEDLE U-100 (SURE COMFORT INSULIN SYRINGE) 0.3 ML 31 GAUGE X 5/16" SYRG Use as directed 4 times daily, Dx E11.65 . LANCETS 33 GAUGE MISC USE TO TEST FOUR TIMES DAILY - TruePlus Ultra thing 30g . LISINOPRIL (PRINIVIL,ZESTRIL) 20 MG TABLET Take 1 (one) tablet (20 mg total) by mouth daily . MELOXICAM (MOBIC) 15 MG TABLET TAKE ONE TABLET BY MOUTH ONCE DAILY METOCLOPRAMIDE (REGLAN) 10 MG TABLET Take 1 (one) tablet (10 mg total) by mouth 4 (four) times a day with meals and nightly . METOPROLOL TARTRATE (LOPRESSOR) 25 MG TABLET Take 1 (one) tablet (25 mg total) by mouth 2 (two) times a day . PANTOPRAZOLE (PROTONIX) 40 MG TABLET TAKE ONE TABLET BY MOUTH ONCE DAILY PEN NEEDLE, DIABETIC 31 GAUGE X 5/16" NDLE Use as directed for insulin adm. Insulin and Victoza . TRUE METRIX GLUCOSE TEST STRIP STRIPS To test three times a day. DX code E11.65 . VICTOZA 2-PUMA 0.6 MG/0.1 ML (18 MG/3 ML) PEN INJECT 1.2 MG SUBCUTANEOUSLY DAILY Modified Medications No medications on file Discontinued Medications No medications on file Review of Systems Review of Systems Constitutional: Positive for irritability. Negative for activity change, appetite change, fatigue and malaise/fatigue. Eyes: Negative for blurred vision. Respiratory: Negative for cough and shortness of breath. Cardiovascular: Negative for chest pain, palpitations, orthopnea and PND. Musculoskeletal: Negative for neck pain. Skin: Positive for rash. Neurological: Positive for headaches. Negative for dizziness, facial asymmetry and light-headedness. Psychiatric/Behavioral: Negative for agitation. The patient is nervous/anxious and has insomnia. Vitals: 02/29/20 0919 BP: 126/83 BP Location: Left arm Patient Position: Sitting BP Cuff Size: X-large Adult Pulse: 80 Resp: 18 Temp: 98 F (36.7 C) TempSrc: Temporal SpO2: 95% Weight: 111.1 kg (245 lb) Body mass index is 42.05 kg/m . Physical Exam Physical Exam Vitals signs reviewed. Constitutional: Appearance: Normal appearance. She is well-developed. HENT: Head: Normocephalic. Right Ear: External ear normal. Left Ear: External ear normal. Nose: Nose normal. Eyes: General: Lids are normal. Cardiovascular: Rate and Rhythm: Normal rate and regular rhythm. Heart sounds: Normal heart sounds. Pulmonary: Effort: Pulmonary effort is normal. Breath sounds: Normal breath sounds. Musculoskeletal: Normal range of motion. Skin: General: Skin is warm and dry. Neurological: General: No focal deficit present. Mental Status: She is alert and oriented to person, place, and time. Coordination: Coordination is intact. Gait: Gait is intact. Psychiatric: Attention and Perception: Attention normal. Mood and Affect: Mood normal. Speech: Speech normal. Behavior: Behavior normal. Behavior is cooperative. Thought Content: Thought content normal. Cognition and Memory: Cognition normal. Judgment: Judgment normal. OARRS/NARxCHECK Report Received and Assessed: 02/22/20 Date controlled substance agreement signed: 08/22/19 Date of last drug screen: 08/22/19 The 10-year ASCVD risk score (Talat SOSA Jr., et al., 2013) is: 6.3% Values used to calculate the score: Age: 54 years Sex: Female Is Non- : No Diabetic: Yes Tobacco smoker: No Systolic Blood Pressure: 126 mmHg Is BP treated: Yes HDL Cholesterol: 37 mg/dL Total Cholesterol: 189 mg/dL Assessment/Plan Problem List Items Addressed This Visit Cardiovascular and Mediastinum Essential hypertension - Primary Patient's blood pressure is within normal limits here today. It was discussed with the patient as well as she is having anxiety/panic attacks and is under an increased amount of stress. The blood pressure will continue to be elevated. Musculoskeletal and Integument Yeast infection of the skin Please take the Diflucan as ordered and use the nystatin ointment as needed. Take the Diflucan as ordered. Please contact the office if your rash continues after this treatment. Relevant Medications nystatin (MYCOSTATIN) ointment fluconazole (DIFLUCAN) 100 MG tablet Other Anxiety I would like you to start on buspirone, take this medication 2-3 times daily to help with your anxiety. This medication should help you relax which then should help decrease her blood pressures. Relevant Medications busPIRone (BUSPAR) 10 MG tablet Goals Reducing Risks Patient SPECIFICALLY identifies the Self Care Behavior Goal of Reducing Risks. Patient will MEASURE progress by: monitoring glucose, engagement in self care foot exam;; A1C <7; BS monitoring; Nutrition, Acitivity) Patient's goal will be ACHIEVED by implementing Resources provided: Handouts, electronic references). Barriers will be: Pt. Engagement, insurance barriers addressed by outreach and education Goal is REALISTIC as evidenced by Confidence level of: unsure 1 month to initiate TIMEFRAME for the goal is: 3 months For any new medications prescribed today, patient was educated about indications for the medication, how to take the medication and potential side effects of the medications. Please note: Portions of this chart may have been created with [employer] voice recognition software. Occasional wrong-word or "sound-like" substitutions may have occurred due to inherent limitations of the voice recognition software. Please read the chart carefully and recognize, using context, where the substitutions have occurred. documented in this encounter* Babak Cano CNP - 03/08/2020 3:05 PM EDT Patient ID: Juana Handy is a 54 y.o. female 1965 Subjective: Juana Handy presents for follow-up of Type 2 diabetes Patient has had diabetes for 3 years. Diagnosed in 2016 Patient has taken Insulin for 1 year. Patient reports that she continues to struggle with stressors with family and at home, recently evicted from a house. She states during that time her blood sugars were out of control due to stress. She reports that she checks her blood sugar 4 times a day however she did not bring those readings with her for review. Her most recent hemoglobin A1c is 13.2% 02/21/20. She has been seeing a flight security specialist recently to help regulate her diet and limit her carbohydrates. Currently Taking: Admelog u with meals Basaglar 55 units QHS. Victoza 1.2 mg daily Glimepiride 2 mg twice a day Outpatient Medications Marked as Taking for the 03/08/20 encounter (Office Visit) with Babak Cano CNP: Alcohol Prep Pads PadM, Use as directed 4x daily. DX code E11.65 . aspirin 81 MG EC tablet, Take 81 mg by mouth daily. atorvastatin (LIPITOR) 40 MG tablet, Take 1 (one) tablet (40 mg total) by mouth at bedtime . blood pressure monitor (Blood Pressure Kit) Kit, To monitor blood pressure twice daily . blood-glucose meter (TRUE METRIX GLUCOSE METER) [facility], Use to check BG 3x daily. DX code E11.65 Needs True Metrix Meter . busPIRone (BUSPAR) 10 MG tablet, Take 1 (one) tablet (10 mg total) by mouth 3 (three) times a day . DULoxetine (CYMBALTA) 60 MG capsule, Take 1 (one) capsule (60 mg total) by mouth daily . gabapentin (NEURONTIN) 600 MG tablet, TAKE ONE TABLET BY MOUTH THREE TIMES DAILY glimepiride (AMARYL) 2 MG tablet, Take 1 tablet PO BID . insulin glargine (Basaglar KwikPen U-100 Insulin) 100 unit/mL (3 mL) InPn, Use nightly as directed,approx 50 units . insulin lispro (HumaLOG U-100 Insulin) 100 unit/mL injection, Use as directed approv. 60 units daily total. . insulin syringe-needle U-100 (Sure Comfort Insulin Syringe) 0.3 mL 31 gauge x 5/16" Syrg, Use as directed 4 times daily, Dx E11.65 . lancets 33 gauge Misc, USE TO TEST FOUR TIMES DAILY - TruePlus Ultra thing 30g . lisinopril (PRINIVIL,ZESTRIL) 20 MG tablet, Take 1 (one) tablet (20 mg total) by mouth daily . meloxicam (MOBIC) 15 MG tablet, TAKE ONE TABLET BY MOUTH ONCE DAILY metoclopramide (REGLAN) 10 MG tablet, Take 1 (one) tablet (10 mg total) by mouth 4 (four) times a day with meals and nightly . metoprolol tartrate (LOPRESSOR) 25 MG tablet, Take 1 (one) tablet (25 mg total) by mouth 2 (two) times a day . nystatin (MYCOSTATIN) ointment, Apply topically 2 (two) times a day . pantoprazole (PROTONIX) 40 MG tablet, TAKE ONE TABLET BY MOUTH ONCE DAILY pen needle, diabetic 31 gauge x 5/16" Ndle, Use as directed for insulin adm. Insulin and Victoza . True Metrix Glucose Test Strip strips, To test three times a day. DX code E11.65 . Victoza 2-Puma 0.6 mg/0.1 mL (18 mg/3 mL) Pen, INJECT 1.2 MG SUBCUTANEOUSLY DAILY Review of Systems: Review of Systems Constitutional: Negative for appetite change and fatigue. Eyes: Negative for visual disturbance. Respiratory: Negative for cough, chest tightness, shortness of breath and wheezing. Cardiovascular: Negative for chest pain, palpitations and leg swelling. Gastrointestinal: Negative for abdominal pain, constipation, diarrhea, nausea and vomiting. Endocrine: Negative for polydipsia, polyphagia and polyuria. Genitourinary: Negative for dysuria and frequency. Musculoskeletal: Positive for back pain and gait problem. Negative for arthralgias and myalgias. Neurological: Positive for numbness. Negative for weakness and headaches. The following portions of the patient's history were reviewed and updated as appropriate: allergies, current medications, past family history, past medical history, past social history, past surgicalhistory and problem list. Objective: BP 131/86 Pulse 91 Ht 5' 4" Wt 108.9 kg (240 lb) BMI 41.20 kg/m Wt Readings from Last 3 Encounters: 03/08/20 108.9 kg (240 lb) 02/29/20 111.1 kg (245 lb) 01/12/20 117.9 kg (260 lb) Physical Exam: General: alert, appears stated age and cooperative Eyes: conjunctivae/corneas clear. PERRL, EOM's intact. Neck: no adenopathy, supple, symmetrical, trachea midline. Thyroid: No thyromegaly appreciated Lung: clear to auscultation bilaterally Heart: regular rate and rhythm, S1, S2 normal, no murmur, click, rub or gallop Extremities: extremities normal, atraumatic, no cyanosis or edema, uses cane to get around. SKIN: multiple flat, reddened scratch appearing areas all over her chest, arms and legs. No evidence of infection noted. Feet: Dry skin, Right Foot: warm, good capillary refill, normal DP and reduced sensation at throughout Left Foot: warm, good capillary refill, DP reduced left and reduced sensation at throughout. Monofilament exam abnormal, bilateral lower extremities. Neuro: normal without focal findings, mental status, speech normal, alert and oriented x3 and AYO Lab Review Lab Results Component Value Date HGBA1C 13.2 (H) 03/02/2020 Glucose (mg/dL) Date Value 03/02/2020 416 (CH) Creatinine (mg/dL) Date Value 03/02/2020 0.89 08/23/2018 0.87 Lab Results Component Value Date CHOL 189 03/02/2020 TRIG 343 (H) 03/02/2020 HDL 37 (L) 03/02/2020 LDLCALC 83 03/02/2020 Lab Results Component Value Date TSH 1.40 03/02/2020 Lab Results Component Value Date WBC 9.87 01/12/2020 HGB 13.7 01/12/2020 HCT 43.7 01/12/2020 MCV 86.4 01/12/2020 PLT 302 01/12/2020 03/02/20 *labs reviewed 03/08/20 Hgb A1c: 13.2% Creat: 0.89; eGFR: 74 AST: 42; ALT: 49 K: 3.9 Tchol: 189; Tri ; HDL: 37 ; LDL: 83 TSH: 1.40 ; FreeT4: 1.2 Microalbumin/creatinine Ratio: 39 01/12/20 Creat: 0.98; eGFR: 66 AST: 47; ALT: 43 K: 4.1 04/28/19 Hemoglobin A1C 9.4% Creatinine 1.00 GFR > 60 Cholesterol 138 Triglycerides 183 HDL 40 LDL 61 12/28/18 HgbA1C 8.1% Date: 08/23/18 Creatinine 0.87, sodium 138, potassium 4.1, estimated GFR greater than 60 AST 22, ALT 29 Total cholesterol 140, triglycerides 200, HDL 41, LDL 59 WBC 9.7, hemoglobin 12.3, hematocrit 37.0, platelet count 332,000 TSH 2.83, FT4--1.0 Microalbumin/creatinine ratio 13 07/20/18 HgbA1c 9.9% 02/24/18 HgbA1c 10.3% Assessment/Plan: Dx: 1. Uncontrolled type 2 diabetes mellitus with hyperglycemia, with long-term current use of insulin (HCC) 2. Type 2 diabetes mellitus without complication, with long-term current use of insulin (HCC) 3. Essential hypertension 4. Hyperlipidemia, unspecified hyperlipidemia type Type 2 diabetes, under poor control Patient is currently managed with: Currently taking: Glimepiride 2 mg twice daily Admelog u with meals Basaglar 55 units QHS. Victoza 1.2 mg daily Current Hemoglobin A1C= 13.2% 03/03 Lab Results Component Value Date HGBA1C 13.2 (H) 03/02/2020 HGBA1C 9.2 (A) 08/05/2019 HGBA1C 9.4 (H) 04/28/2019 Weight trend: is stable Current diet: carb controlled, Current exercise: no regular exercise Current monitoring regimen: home blood tests - 4 times daily None to review Home blood sugar records: Any episodes of hypoglycemia? 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 yes Lisinopril Peripheral Neuropathy: Positive Reports bilateral numbness and tingling in feet; has numbness in right foot from back.Taking Gabapentin 600mg oral TID, but reports its not effective. Patient instructed to refer that issue to the pain specialist she will be seen at [facility]. Autonomic Neuropathy: Negative Hypoglycemia unawareness. Senses low BG at 90 mg/dl. Other: Hyperlipidemia: Negative Currently taking: atorvastatin (Lipitor). Cholesterol 138Triglycerides 183 HDL 40 LDL 61 04/28/19 Lab Results Component Value Date AST 42 03/02/2020 ALT 49 03/02/2020 Lab Results Component Value Date EXTCHOL 140 08/23/2018 EXTTRIG 200 (H) 08/23/2018 EXTHDL 41 08/23/2018 Hypertension: Positive. Currently taking: lisinopril (Prinivil) and metoprolol (Lopressor, Toprol) BP: 131/86 Cardiac: Negative Experiencing chest pain no . Experiencing shortness of breath no History of No history of CAD and ETT normal 03/31 Vascular: Negative edema Feet: Positive; she has plantar wart left foot; sores or lesions at this time. Last foot exam: 04/29/19. Sees Dr. Zuñiga for foot care, every 2 weeks or so for injections for pain to ankles. Thyroid: Negative Other: Chronic back pain, s/p 2 back surgeries 10/19/17, 05/10/18. L4-L5 fusions. Awaiting to see PainSpecialist at [facility] for steroid back injections. Plan: 1. Rx changes: adjust insulin: Basaglar insulin: 60 units at bedtime Admelog 26 units at breakfast, 26 units at lunch, 26 units at dinner Glimepiride 2 mg twice daily Victoza 1.8 mg daily Patient's hemoglobin A1c significantly increased since her last appointment. Doses increase as above due to hyperglycemia. Strongly encouraged her to report her readings by any means necessary to theoffice for insulin dose adjustments. Patient warned regarding risks associated with DM out of control including but not limited to: Renal failure Coronary Artery disease Blindness Stroke or CVA 2. Education: Reviewed ABCs of diabetes management (respective goals in parentheses): A1C (7.0-8.0), blood pressure (<130/80), and cholesterol (LDL <100). 3. Compliance at present is estimated to be good. Efforts to improve compliance (if necessary) willbe directed at dietary modifications: carb controlled, no concentrated sugars and regular blood sugar monitorin times daily. 4. Follow up: 3 months 5. Record blood sugar readings as instructed. Call if BG consistently <70 or >250. [phone] Continue to check blood sugar 4 times daily. She has been checking blood glucoses because she is on 4 times daily insulin and assesses her bloodglucose before giving insulin dose. She has had some episodes of hypoglycemia. Her insulin doses will be adjusted based on her blood glucoses at her office appointments, when she brings her glucose readings to the office. Prognosis: Good Duration of need: Permanent 6. Bring blood sugar meter to follow up appointment. Orders Placed This Encounter Procedures Comprehensive Metabolic Panel CBC and Differential Microalbumin/Creatinine Ratio, UR Random Lipid Panel Hemoglobin A1c T4, Free TSH Electronically Signed by: Babak Cano CNP 03/08/20 3:09 PM documented in this encounter* Kary Lennon CNP - 03/13/2020 3:19 PM EDT Associated Order(s): LG Jt Injection/Arthrocentesis: L knee Post-Procedure Diagnose(s): Primary osteoarthritis of both knees LG Jt Injection/Arthrocentesis: L knee Performed by: Kary Lennon CNP Authorized by: Kary Lennon CNP CPT 51452 - Large Joint Arthrocentesis: Consent given by: Patient Time out: Immediately prior to the procedure a time out was called Physician or proceduralist has discussed critical or nonroutine steps, procedure duration and anticipated blood loss: Yes Supporting Documentation: Indications: Pain Procedure Details: Location: Knee Site: L knee Prep: patient was prepped and draped in usual sterile fashion Needle size: 22 G Approach: Anterolateral Medications: 1 mL dexamethasone 4 mg/mL, 1 mL triamcinolone acetonide 40 mg/mL Anesthetic used: Bupivacaine 0.5% and Lidocaine 1% Anesthetic amount (mL): 4 Patient tolerance: Patient tolerated the procedure well with no immediate complications * Kary Lennon CNP - 03/13/2020 3:19 PM EDT Associated Order(s): LG Jt Injection/Arthrocentesis: R knee Post-Procedure Diagnose(s): Primary osteoarthritis of both knees LG Jt Injection/Arthrocentesis: R knee Performed by: Kary Lennon CNP Authorized by: Kary Lennon CNP CPT 80836 - Large Joint Arthrocentesis: Consent given by: Patient Time out: Immediately prior to the procedure a time out was called Physician or proceduralist has discussed critical or nonroutine steps, procedure duration and anticipated blood loss: Yes Supporting Documentation: Indications: Pain Procedure Details: Location: Knee Site: R knee Prep: patient was prepped and draped in usual sterile fashion Needle size: 22 G Approach: Anterolateral Medications: 1 mL dexamethasone 4 mg/mL, 1 mL triamcinolone acetonide 40 mg/mL Anesthetic used: Bupivacaine 0.5% and Lidocaine 1% Anesthetic amount (mL): 4 Patient tolerance: Patient tolerated the procedure well with no immediate complications * Kary Lennon CNP - 03/13/2020 2:50 PM EDT Juana Robert Handy 1965 CC: 54 y.o. is a she with Chief Complaint Patient presents with Left Knee - Pain Right Knee - Pain . HPI: Knee Pain: Patient complains of bilateral knee pain. This is evaluated as a personal injury, She reports falling down stairs landing on left knee years ago.New onset flare up with pain and aching. The pain began several weeks ago. The pain is located medial, lateral, anterior. She describes the symptoms as aching. Symptoms improve with rest, avoiding painful activities. The symptoms are worse with stair climbing, deep knee bending, getting up from a chair, weight bearing. The knee has not given out or felt unstable. The patient can bend and straighten the knee fully. The patient is active in none. Treatment to date has been ice, NSAID's, without significant relief. Takes tylenol and Mobic which she states do nothing for the pain. PMH: Allergies Allergen Reactions Latex Rash Current Outpatient Medications: Alcohol Prep Pads PadM, Use as directed 4x daily. DX code E11.65 ., Disp: 200 each, Rfl: 5 aspirin 81 MG EC tablet, Take 81 mg by mouth daily., Disp: , Rfl: atorvastatin (LIPITOR) 40 MG tablet, Take 1 (one) tablet (40 mg total) by mouth at bedtime ., Disp:30 tablet, Rfl: 11 blood pressure monitor (Blood Pressure Kit) Kit, To monitor blood pressure twice daily ., Disp: 1 each, Rfl: 0 blood-glucose meter (TRUE METRIX GLUCOSE METER) [facility], Use to check BG 3x daily. DX code E11.65 Needs True Metrix Meter ., Disp: 1 each, Rfl: 0 busPIRone (BUSPAR) 10 MG tablet, Take 1 (one) tablet (10 mg total) by mouth 3 (three) times a day ., Disp: 90 tablet, Rfl: 5 DULoxetine (CYMBALTA) 60 MG capsule, Take 1 (one) capsule (60 mg total) by mouth daily ., Disp: 30 capsule, Rfl: 11 gabapentin (NEURONTIN) 600 MG tablet, Take 1 (one) tablet (600 mg total) by mouth 3 (three) times aday ., Disp: 90 tablet, Rfl: 2 glimepiride (AMARYL) 2 MG tablet, Take 1 tablet PO BID ., Disp: 180 tablet, Rfl: 3 insulin glargine (Basaglar KwikPen U-100 Insulin) 100 unit/mL (3 mL) InPn, Use nightly as directed,approx 50 units ., Disp: 15 Syringe, Rfl: 3 insulin lispro (HumaLOG U-100 Insulin) 100 unit/mL injection, Use as directed approv. 60 units daily total. ., Disp: 20 mL, Rfl: 5 insulin syringe-needle U-100 (Sure Comfort Insulin Syringe) 0.3 mL 31 gauge x 5/16" Syrg, Use as directed 4 times daily, Dx E11.65 ., Disp: 400 each, Rfl: 3 lancets 33 gauge Misc, USE TO TEST FOUR TIMES DAILY - TruePlus Ultra thing 30g ., Disp: 200 each, Rfl: 1 lisinopril (PRINIVIL,ZESTRIL) 20 MG tablet, Take 1 (one) tablet (20 mg total) by mouth daily ., Disp: 30 tablet, Rfl: 11 meloxicam (MOBIC) 15 MG tablet, TAKE ONE TABLET BY MOUTH ONCE DAILY, Disp: 30 tablet, Rfl: 7 metoclopramide (REGLAN) 10 MG tablet, TAKE ONE TABLET BY MOUTH FOUR TIMES DAILY WITH MEALS AND EVERY NIGHT, Disp: 120 tablet, Rfl: 2 metoprolol tartrate (LOPRESSOR) 25 MG tablet, Take 1 (one) tablet (25 mg total) by mouth 2 (two) times a day ., Disp: 60 tablet, Rfl: 5 nystatin (MYCOSTATIN) ointment, Apply topically 2 (two) times a day ., Disp: 45 g, Rfl: 1 pantoprazole (PROTONIX) 40 MG tablet, TAKE ONE TABLET BY MOUTH ONCE DAILY, Disp: 30 tablet, Rfl: 11 pen needle, diabetic 31 gauge x 5/16" Ndle, Use as directed for insulin adm. Insulin and Victoza .,Disp: 150 each, Rfl: 11 True Metrix Glucose Test Strip strips, To test three times a day. DX code E11.65 ., Disp: 100 each,Rfl: 11 Victoza 2-Puma 0.6 mg/0.1 mL (18 mg/3 mL) Pen, INJECT 1.2 MG SUBCUTANEOUSLY DAILY, Disp: 6 mL, Rfl: 5 Past Medical History: Diagnosis Date Back pain L2,3,4,5 Chronic bronchitis (HCC) DDD (degenerative disc disease), lumbar Diabetes mellitus, type 2 (HCC) Diverticulitis 2001 Fibromyalgia, primary Hemorrhage 1991 surgery Herniated lumbar intervertebral disc L4-5 Hyperlipidemia Hypertension Neuropathy 10/17/91 Sciatica Past Surgical History: Procedure Laterality Date BONE MARROW BIOPSY W/ ASPIRATION 06/04/2018 ........Dr. Pat BREAST BIOPSY Left 10/12/2017 Stereo-proliferative fibrocystic changes and associated microcalcifications, focal pseudoangiomatous stromal hyperplasia CATARACT EXTRACTION, BILATERAL COLONOSCOPY 37 years old..Diverticulitis COLONOSCOPY 05/07/2017 diverticulosis, signle polyp in sigmoid, internal hermorrhoids...Dimitris DILATION AND CURETTAGE OF UTERUS for utreine bleeding LUMBAR FUSION 10/19/2017 Social History Socioeconomic History Marital status: Spouse name: Not on file Number of children: Not on file Years of education: Not on file Highest education level: Not on file Occupational History Not on file Social Needs Financial resource strain: Somewhat hard Food insecurity Worry: Sometimes true Inability: Sometimes true Transportation needs Medical: No Non-medical: No Tobacco Use Smoking status: Never Smoker Smokeless tobacco: Never Used Substance and Sexual Activity Alcohol use: No Drug use: No Sexual activity: Not Currently Lifestyle Physical activity Days per week: Not on file Minutes per session: Not on file Stress: Not on file Relationships Social connections Talks on phone: Three times a week Gets together: Once a week Attends religion service: Not on file Active member of club or organization: Not on file Attends meetings of clubs or organizations: Not on file Relationship status: Not on file Other Topics Concern Not on file Social History Narrative Not on file ROS: Review of Systems Constitutional: Negative for chills, diaphoresis and fever. Respiratory: Negative for shortness of breath. Cardiovascular: Negative for chest pain, palpitations and leg swelling. Genitourinary: Negative for frequency and urgency. Musculoskeletal: Positive for arthralgias, gait problem and joint swelling. Skin: Negative for color change, rash and wound. Neurological: Negative for dizziness, syncope and weakness. Psychiatric/Behavioral: Negative for agitation. The patient is not nervous/anxious. PE: Physical Exam Constitutional: She is oriented to person, place, and time. She appears well- developed and well-nourished. HENT: Head: Normocephalic and atraumatic. Eyes: Pupils are equal, round, and reactive to light. Neck: Normal range of motion. Neck supple. Cardiovascular: Normal rate and regular rhythm. Pulmonary/Chest: Effort normal and breath sounds normal. Abdominal: Soft. Bowel sounds are normal. Musculoskeletal: General: Tenderness present. Neurological: She is alert and oriented to person, place, and time. She has normal reflexes. Skin: Skin is warm and dry. Imaging:Imaging;Degenerative arthritis medial compartment severe left knee, moderate lateral and medial right knee. Appears to be some remote Trauma to her left tibial plateau Diagnosis: Problem List Items Addressed This Visit None Follow Up: Return in about 3 months (around 06/13/2020). Kary Lennon CNP documented in this encounter* Marianela Fowler CNP - 03/29/2020 10:40 AM EDT OFFICE VISIT PROGRESS NOTE Juana Handy is a 54 y.o. female with a past medical history of Patient Active Problem List Diagnosis Lumbar degenerative disc disease Herniated intervertebral disc of lumbar spine Spinal stenosis of lumbar region without neurogenic claudication Uncontrolled type 2 diabetes mellitus with hyperglycemia, with long-term current use of insulin ([facility]) Neuropathy involving both lower extremities Type 2 diabetes mellitus without complication, with long-term current use of insulin ([facility]) H/O spinal fusion Essential hypertension Hyperlipidemia Fibromyalgia Class 3 severe obesity with serious comorbidity and body mass index (BMI) of 45.0 to 49.9 in adult ([facility]) Degenerative disc disease, cervical Gastroesophageal reflux disease Chronic neck pain Chronic thoracic spine pain Chronic bilateral low back pain Depression with anxiety Intractable vomiting Anxiety Yeast infection of the skin who presents to the office today for a follow up on anxiety and depression. Anxiety Presents for follow-up visit. Patient reports no chest pain, compulsions, confusion, decreased concentration, depressed mood, dizziness, dry mouth, excessive worry, irritability, malaise, nervous/anxious behavior, palpitations, panic, restlessness or shortness of breath. Symptoms occur occasionally. The severity of symptoms is mild. The quality of sleep is good. Nighttime awakenings: occasional. Her past medical history is significant for depression. Compliance with medications is 76-100%. Depression Visit Type: follow-up Patient is not experiencing: compulsions, confusion, decreased concentration, depressed mood, dry mouth, excessive worry, feelings of hopelessness, feelings of worthlessness, irritability, malaise, nervousness/anxiety, palpitations, panic, restlessness and shortness of breath. Frequency of symptoms: occasionally Severity: mild Sleep quality: good Nighttime awakenings: occasional Compliance with medications: 76-100% Hypertension This is a chronic problem. The current episode started more than 1 year ago. The problem is controlled. Associated symptoms include anxiety. Pertinent negatives include no blurred vision, chest pain,headaches, neck pain, palpitations, peripheral edema or shortness of breath. There are no associated agents to hypertension. Risk factors for coronary artery disease include family history, obesity, diabetes mellitus, dyslipidemia, stress and sedentary lifestyle. The current treatment provides significant improvement. There are no compliance problems. Health Maintenance Topic Date Due Wellness Visit 1968 Ophthalmology Exam 1975 HIV Screening 1980 Hepatitis C Screening 1983 Zoster Vaccines (1 of 2) 2015 Pap Smear 04/28/2020 Sequential Influenza Vaccine (1) 05/15/2020 A1C 09/01/2020 Mammogram 01/26/2021 Urine Microalbumin 03/02/2021 Foot Exam 03/08/2021 Tetanus: Every 10yrs 07/11/2021 Colorectal Cancer Screening: Colonoscopy 05/07/2027 The following portions of the patient's history were reviewed and updated as appropriate: allergies, current medications and problem list. Family History Problem Relation Age of Onset Lung cancer Father Heart failure Father Heart disease Father Diabetes Brother Heart disease Brother Bone cancer Maternal Grandmother Heart failure Maternal Grandmother Stroke Maternal Grandmother Cancer Half-Sister unknown cancer (mother in common) Heart disease Sister Diabetes Sister Mental illness Daughter Cancer Paternal Grandmother Social History Socioeconomic History Marital status: Spouse name: Not on file Number of children: Not on file Years of education: Not on file Highest education level: Not on file Occupational History Not on file Social Needs Financial resource strain: Somewhat hard Food insecurity Worry: Sometimes true Inability: Sometimes true Transportation needs Medical: No Non-medical: No Tobacco Use Smoking status: Never Smoker Smokeless tobacco: Never Used Substance and Sexual Activity Alcohol use: No Drug use: No Sexual activity: Not Currently Lifestyle Physical activity Days per week: Not on file Minutes per session: Not on file Stress: Not on file Relationships Social connections Talks on phone: Three times a week Gets together: Once a week Attends religion service: Not on file Active member of club or organization: Not on file Attends meetings of clubs or organizations: Not on file Relationship status: Not on file Other Topics Concern Not on file Social History Narrative Not on file Past Surgical History: Procedure Laterality Date BONE MARROW BIOPSY W/ ASPIRATION 06/04/2018 ........Dr. Pat BREAST BIOPSY Left 10/12/2017 Stereo-proliferative fibrocystic changes and associated microcalcifications, focal pseudoangiomatous stromal hyperplasia CATARACT EXTRACTION, BILATERAL COLONOSCOPY 37 years old..Diverticulitis COLONOSCOPY 05/07/2017 diverticulosis, signle polyp in sigmoid, internal hermorrhoids...Dimitris DILATION AND CURETTAGE OF UTERUS for utreine bleeding LUMBAR FUSION 10/19/2017 Allergies Allergen Reactions Latex Rash Patient's Medications New Prescriptions No medications on file Previous Medications ALCOHOL PREP PADS PADM Use as directed 4x daily. DX code E11.65 . ASPIRIN 81 MG EC TABLET Take 81 mg by mouth daily. ATORVASTATIN (LIPITOR) 40 MG TABLET Take 1 (one) tablet (40 mg total) by mouth at bedtime . BLOOD PRESSURE MONITOR (BLOOD PRESSURE KIT) KIT To monitor blood pressure twice daily . BLOOD-GLUCOSE METER (TRUE METRIX GLUCOSE METER) [facility] Use to check BG 3x daily. DX code E11.65 NeedsTrue Metrix Meter . BUSPIRONE (BUSPAR) 10 MG TABLET Take 1 (one) tablet (10 mg total) by mouth 3 (three) times a day . DULOXETINE (CYMBALTA) 60 MG CAPSULE Take 1 (one) capsule (60 mg total) by mouth daily . GABAPENTIN (NEURONTIN) 600 MG TABLET Take 1 (one) tablet (600 mg total) by mouth 3 (three) times a day . GLIMEPIRIDE (AMARYL) 2 MG TABLET Take 1 tablet PO BID . INSULIN GLARGINE (BASAGLAR KWIKPEN U-100 INSULIN) 100 UNIT/ML (3 ML) INPN Use nightly as directed, approx 50 units . INSULIN LISPRO (HUMALOG U-100 INSULIN) 100 UNIT/ML INJECTION Use as directed approv. 60 units dailytotal. . INSULIN SYRINGE-NEEDLE U-100 (SURE COMFORT INSULIN SYRINGE) 0.3 ML 31 GAUGE X 5/16" SYRG Use as directed 4 times daily, Dx E11.65 . LANCETS 33 GAUGE [facility] USE TO TEST FOUR TIMES DAILY - TruePlus Ultra thing 30g . LISINOPRIL (PRINIVIL,ZESTRIL) 20 MG TABLET Take 1 (one) tablet (20 mg total) by mouth daily . MELOXICAM (MOBIC) 15 MG TABLET TAKE ONE TABLET BY MOUTH ONCE DAILY METOCLOPRAMIDE (REGLAN) 10 MG TABLET TAKE ONE TABLET BY MOUTH FOUR TIMES DAILY WITH MEALS AND EVERYNIGHT METOPROLOL TARTRATE (LOPRESSOR) 25 MG TABLET Take 1 (one) tablet (25 mg total) by mouth 2 (two) times a day . NYSTATIN (MYCOSTATIN) OINTMENT Apply topically 2 (two) times a day . PANTOPRAZOLE (PROTONIX) 40 MG TABLET TAKE ONE TABLET BY MOUTH ONCE DAILY PEN NEEDLE, DIABETIC 31 GAUGE X 5/16" NDLE Use as directed for insulin adm. Insulin and Victoza . TRUE METRIX GLUCOSE TEST STRIP STRIPS To test three times a day. DX code E11.65 . VICTOZA 2-PUMA 0.6 MG/0.1 ML (18 MG/3 ML) PEN INJECT 1.2 MG SUBCUTANEOUSLY DAILY Modified Medications No medications on file Discontinued Medications No medications on file Review of Systems Review of Systems Constitutional: Negative for activity change, appetite change, fatigue and irritability. Eyes: Negative for blurred vision. Respiratory: Negative for cough and shortness of breath. Cardiovascular: Negative for chest pain and palpitations. Musculoskeletal: Negative for neck pain. Neurological: Negative for dizziness, facial asymmetry, light-headedness and headaches. Psychiatric/Behavioral: Negative for agitation, confusion and decreased concentration. The patient is not nervous/anxious. Vitals: 03/29/20 1016 BP: 127/83 BP Location: Right arm Patient Position: Sitting BP Cuff Size: X-large Adult Pulse: 71 Resp: 16 Temp: 98 F (36.7 C) SpO2: 97% Weight: 107.7 kg (237 lb 6.4 oz) Height: 5' 4" Body mass index is 40.75 kg/m . Physical Exam Physical Exam Vitals signs reviewed. Constitutional: Appearance: Normal appearance. She is well-developed. HENT: Head: Normocephalic. Right Ear: External ear normal. Left Ear: External ear normal. Nose: Nose normal. Eyes: General: Lids are normal. Cardiovascular: Rate and Rhythm: Normal rate and regular rhythm. Heart sounds: Normal heart sounds. Pulmonary: Effort: Pulmonary effort is normal. Breath sounds: Normal breath sounds. Musculoskeletal: Normal range of motion. Skin: General: Skin is warm and dry. Neurological: General: No focal deficit present. Mental Status: She is alert and oriented to person, place, and time. Coordination: Coordination is intact. Gait: Gait is intact. Psychiatric: Attention and Perception: Attention normal. Mood and Affect: Mood normal. Speech: Speech normal. Behavior: Behavior normal. Behavior is cooperative. Thought Content: Thought content normal. Cognition and Memory: Cognition normal. Judgment: Judgment normal. OARRS/NARxCHECK Report Received and Assessed: 03/12/2020 Date controlled substance agreement signed: 08/22/2019 Date of last drug screen: 08/22/2019 Functional Assessment: No data found The 10-year ASCVD risk score (Talat SOSA Jr., et al., 2013) is: 6.4% Values used to calculate the score: Age: 54 years Sex: Female Is Non- : No Diabetic: Yes Tobacco smoker: No Systolic Blood Pressure: 127 mmHg Is BP treated: Yes HDL Cholesterol: 37 mg/dL Total Cholesterol: 189 mg/dL Assessment/Plan Problem List Items Addressed This Visit Cardiovascular and Mediastinum Essential hypertension - Primary Stable, continue medications as ordered, increase activity as tolerated, reduce salt intake as thiscan cause fluid retention, and watch diet, it is best to eat as . Continue to monitor blood pressure at home in the morning upon awakening and in the evening prior to going to bed. Bring blood pressure log and cuff to your next visit. Other Depression with anxiety Patient doing significantly better since ending a toxic friendship. States that she has completely moved into her new home, and appears to be happy with that move. Goals Reducing Risks Patient SPECIFICALLY identifies the Self Care Behavior Goal of Reducing Risks. Patient will MEASURE progress by: monitoring glucose, engagement in self care foot exam;; A1C <7; BS monitoring; Nutrition, Acitivity) Patient's goal will be ACHIEVED by implementing Resources provided: Handouts, electronic references). Barriers will be: Pt. Engagement, insurance barriers addressed by outreach and education Goal is REALISTIC as evidenced by Confidence level of: unsure 1 month to initiate TIMEFRAME for the goal is: 3 months For any new medications prescribed today, patient was educated about indications for the medication, how to take the medication and potential side effects of the medications. Please note: Portions of this chart may have been created with [employer] voice recognition software. Occasional wrong-word or "sound-like" substitutions may have occurred due to inherent limitations of the voice recognition software. Please read the chart carefully and recognize, using context, where the substitutions have occurred. Depression Screening 05/05/2019 02/29/2020 03/29/2020 Little interest or pleasure in doing things 1 1 1 Feeling down, depressed, or hopeless 1 1 1 PHQ-2 Total Score 2 2 2 Trouble falling or staying asleep, or sleeping too much 1 2 2 Feeling tired or having little energy 1 1 1 Poor appetite or overeating 0 1 1 Feeling bad about yourself - or that you are a failure or have let yourself or your family down 0 10 Trouble concentrating on things, such as reading the newspaper or watching television 0 1 0 Moving or speaking so slowly that other people could have noticed. Or the opposite - being so fidgety or restless that you have been moving around a lot more than usual 0 0 0 Thoughts that you would be better off , or of hurting yourself in some way 0 0 0 PHQ-9 Total Score 4 8 6 If you checked off any problems, how difficult have these problems made it for you to do your work,take care of things at home, or get along with other people? Not difficult at all Not difficult at all Somewhat difficult Depression Screening 05/05/2019 02/29/2020 03/29/2020 Little interest or pleasure in doing things 1 1 1 Feeling down, depressed, or hopeless 1 1 1 PHQ-2 Total Score 2 2 2 Trouble falling or staying asleep, or sleeping too much 1 2 2 Feeling tired or having little energy 1 1 1 Poor appetite or overeating 0 1 1 Feeling bad about yourself - or that you are a failure or have let yourself or your family down 0 10 Trouble concentrating on things, such as reading the newspaper or watching television 0 1 0 Moving or speaking so slowly that other people could have noticed. Or the opposite - being so fidgety or restless that you have been moving around a lot more than usual 0 0 0 Thoughts that you would be better off , or of hurting yourself in some way 0 0 0 PHQ-9 Total Score 4 8 6 If you checked off any problems, how difficult have these problems made it for you to do your work,take care of things at home, or get along with other people? Not difficult at all Not difficult at all Somewhat difficult documented in this encounter* Sudheer Bobby MA - 04/18/2020 1:26 PM EDT Review of Systems Constitutional: Positive for activity change and fatigue. HENT: Negative. Cardiovascular: Negative. Musculoskeletal: Positive for back pain, gait problem, joint swelling, myalgias, neck pain and neckstiffness. Neurological: Positive for weakness and numbness. * Jose Gallagher MD - 04/18/2020 1:18 PM EDT Subjective Patient ID: Juana Handy is a 54 y.o. female. HPI She has a history of diabetic neuropathy and fibromyalgia. Her main complaint is chronic neck and low back pain. She notes tingling down both arms. She has tried physical therapy and muscle relaxants. She's had a previous lumbar fusion surgery at L4-5. Current MRI imaging shows disc bulging at L2-3. C-spine MRI shows foraminal narrowing at C4-5, C5-6 and moderate stenosis due to disc bulging at C4-5. Review of Systems Constitutional: Positive for activity change and fatigue. HENT: Negative. Cardiovascular: Negative. Musculoskeletal: Positive for back pain, gait problem, joint swelling, myalgias, neck pain and neckstiffness. Neurological: Positive for weakness and numbness. Objective Physical Exam She has 4/5 power in the upper and lower extremities, sensory and reflex exam is within normal limits, no abnormal reflexes, gait is antalgic Assessment/Plan: Diagnoses and all orders for this visit: Neck pain MRI c-spine report: "1. Discogenic disease C4-5 and C5-6 with an AP diameter canal of 6 mm. There is effacement of the CSF column without effacement of the cord. 2. Foraminal narrowing C4-5, C5-6." MRI lumbar report: " 1. Posterior decompression and fixation at L4/L5. No acute osseous abnormality. 2. Mild central canal stenosis at L2/L3 and L3/L4 due to disc bulging. 3. Mild bilateral neural foraminal stenosis at L4/L5, right greater than left. Slight encroachment upon the neural foramina at L2/L3 and L3/L4." emg was done: "Impression: This is an abnormal EMG. There is electrodiagnostic evidence of a diffuse predominantly axonal sensorimotor polyneuropathy. NO clear electrodiagnostic evidence of a bilateral lumbosacral radiculopathy, or plexopathy at this time." Will plan for C4-5, C5-6 discectomy and fusion for the foraminal stenosis, and cervical spinal stenosis documented in this encounter* Heidy Gore RN - 06/06/2020 7:00 AM EDT Test not performed due to elevated blood sugar documented in this encounter* Tracey Bragg - 06/11/2020 11:47 AM EDT DISCHARGE PLAN PROGRESS NOTE Date: 06/11/2020 Time: 11:48 AM Patient Name: Juana Handy Date of : 1965 Sex: Female Spoke with this patient regarding Home Health Care for PT/OT. She is interested in care with [facility]. [facility] to [facility]. They can accept the patient. Tracey Bragg * Jose Gallagher MD - 06/10/2020 11:15 AM EDT POD #3 AVSS She has some neck pain No difficulty with voice She is moving all extremities well She has ambulated A/p- will discharge to home later today * Jose Gallagher MD - 06/09/2020 11:46 AM EDT POD #2 AVSS She still has some neck pain Some difficulty with swallowing she mentions She is moving all extremities well A/p- will change to an [place] collar, she has significant neck pain still, will plan for discharge to home likely for tomorrow * Jose Gallagher MD - 06/08/2020 8:31 AM EDT POD #1 AVSS She mentions some throat soreness, neck pain She is moving all extremities well, No hoarseness of voice A/p- will ambulate with PT today documented in this encounter* Kristie Vera RN - 06/13/2020 2:28 PM EDT PEDRO rising risk d/c 06/07/2020 - 06/11/2020 Dx. Anterior Cervical Discectomy and Fusion, C4-5 and C5-6. LM - PEDRO letter sent via [employer] Future Appointments Date Time Provider Department Center 06/14/2020 To Be Determined Francisco Augustine, PT [facility] 06/14/2020 To Be Determined Michelle Nioñ, OT [facility] 06/19/2020 7:00 AM MH PET VIRTUAL MH PET 06/19/2020 8:00 AM MH PET1 [facility] PET 06/20/2020 1:45 PM Jose Gallagher MD [facility] 07/09/2020 3:45 PM Garima Combs, CORPORATE CONSULTANT [facility] END GLS3 08/22/2020 3:00 PM Marianela Fowler, CORPORATE CONSULTANT [facility] CR[facility] documented in this encounter* Francisco Stokes MD - 08/23/2020 10:17 AM EST Patient was scheduled to see me as a new consult for abnormal chest imaging. Patient unfortunately was a no-show to her telehealth visit and despite multiple calls from staff she did not answer her phone. Will plan to attempt to re- schedule patient to the next available pulmonary provider appointment. documented in this encounter* Nidia Stover LSW - 09/03/2020 3:23 PM EST SW received referral from Kristie Vera RN Reason for Referral: Utility assistance Resources Recommended: None at this time. Action/Result: SW received referral and reviewed chart. SW placed call to patient on this date. Patient did not answer and SW unable to leave voicemail. SW to re-attempt outreach in one week. Addendum 3:29PM: SW received return call from patient. Patient shared that she was able to get notice extended until after the first of the year and will be able to pay gas bill once receives check on of this month. Patient denied any other assistance at this time in this domain. Patient shared that she is having difficulty with obtaining a lift chair due to challenges with insurance. SW to look into for potential assistance and will follow up with patient. CASS Crow LSW [facility] [facility] [phone] documented in this encounter* Nidia Stover LSW - 09/10/2020 12:27 PM EST SW follow up call this date. Reason for call: Follow up call from initial encounter 09-03-2020 Result: SW outreached Saroj Vaughn re: lift chair. Spoke with Kristin. Informed Medicare will cover 80% oflifting device but does not cover chair and would be out of pocket expense. SW placed call to patient on this date. Shared of information regarding Medicare coverage. Discussed with patient to outreach Medicaid to see if any coverage for lift chair as patient has Medicaid assecondary insurance. SW shared of [employer] as potential resource for furniture assistance. Patient requested contact information for [employer] be provided via [employer]. Will remain available to assist patient as needed. CASS Crow LSW [facility] [phone] documented in this encounter* Marianela Fowler CNP - 08/22/2020 2:50 PM EST OFFICE VISIT PROGRESS NOTE Juana Handy is a 55 y.o. female with a past medical history of Patient Active Problem List Diagnosis Lumbar degenerative disc disease Herniated intervertebral disc of lumbar spine Spinal stenosis of lumbar region without neurogenic claudication Uncontrolled type 2 diabetes mellitus with hyperglycemia, with long-term current use of insulin ([facility]) Neuropathy involving both lower extremities Type 2 diabetes mellitus without complication, with long-term current use of insulin ([facility]) H/O spinal fusion Hypertension Hyperlipidemia Fibromyalgia Class 3 severe obesity with serious comorbidity and body mass index (BMI) of 45.0 to 49.9 in adult (HCC) Degenerative disc disease, cervical Gastroesophageal reflux disease Chronic neck pain Chronic thoracic spine pain Chronic bilateral low back pain Anxiety and depression Intractable vomiting Anxiety Pulmonary nodule, left Preoperative examination, unspecified S/P cervical spinal fusion who presents to the office today for a follow up on chronic conditions. Patient states that she is also in need of a new electric lift chair/recliner. The patient would benefit from electronic lift chair, patient has had multiple procedures completedon her cervical spine and lumbar spine is unable to lay flat for a long period of time as she is unable to straighten her legs while laying flat. Patient states that her pain is more significant alsowhile laying flat. With the patient's diagnosis of neuropathy, spinal stenosis, and history of cervical spinal fusion, this would be beneficial. Hypertension This is a chronic problem. The current episode started more than 1 year ago. The problem has been waxing and waning since onset. The problem is controlled. Associated symptoms include anxiety and neck pain (chornic ). Pertinent negatives include no chest pain, headaches, malaise/fatigue, palpitations, peripheral edema, PND, shortness of breath or sweats. There are no associated agents to hypertension. Risk factors for coronary artery disease include family history, dyslipidemia, obesity, post-menopausal state, stress, sedentary lifestyle, smoking/tobacco exposure and diabetes mellitus. The current treatment provides significant improvement. Compliance problems include psychosocial issues, exercise and diet. There is no history of chronic renal disease. Hyperlipidemia This is a chronic problem. The current episode started more than 1 year ago. Recent lipid tests were reviewed and are variable. Exacerbating diseases include diabetes and obesity. She has no history of chronic renal disease, hypothyroidism, liver disease or nephrotic syndrome. Pertinent negatives include no chest pain, focal sensory loss, focal weakness, leg pain, myalgias or shortness of breath.Current antihyperlipidemic treatment includes statins. The current treatment provides significant improvement of lipids. Gastroesophageal Reflux She reports no chest pain, no coughing, no early satiety, no heartburn, no sore throat or no tooth decay. This is a chronic problem. The current episode started more than 1 year ago. The problem occurs rarely. The problem has been waxing and waning. The symptoms are aggravated by certain foods, stress and bending. Pertinent negatives include no anemia, fatigue, melena, muscle weakness, orthopnea or weight loss. Risk factors include obesity. She has tried a PPI for the symptoms. The treatment provided significant relief. Fibromyalgia: Chronic problem, moderately controlled with gabapentin. Patient does have chronic pain due to multiple cervical and lumbar surgical procedures. Patient denies use of narcotics or illegal drugs while using this medication. Patient states that this medication does not make her drowsy. Health Maintenance Topic Date Due Wellness Visit 1968 Ophthalmology Exam 1975 HIV Screening 1980 Hepatitis C Screening 1983 Zoster Vaccines (1 of 2) 2015 Pap Smear 04/28/2020 A1C 01/05/2021 Mammogram 01/26/2021 Urine Microalbumin 07/07/2021 Foot Exam 07/09/2021 Tetanus: Every 10yrs 07/11/2021 Colorectal Cancer Screening 05/07/2027 Sequential Influenza Vaccine Completed The following portions of the patient's history were reviewed and updated as appropriate: allergies, current medications and problem list. Family History Problem Relation Age of Onset Lung cancer Father Heart failure Father Heart disease Father Diabetes Brother Heart disease Brother Bone cancer Maternal Grandmother Heart failure Maternal Grandmother Stroke Maternal Grandmother Cancer Half-Sister unknown cancer (mother in common) Heart disease Sister Diabetes Sister Mental illness Daughter Cancer Paternal Grandmother Social History Socioeconomic History Marital status: Spouse name: Not on file Number of children: Not on file Years of education: Not on file Highest education level: Not on file Occupational History Not on file Social Needs Financial resource strain: Somewhat hard Food insecurity Worry: Sometimes true Inability: Sometimes true Transportation needs Medical: No Non-medical: Yes Tobacco Use Smoking status: Never Smoker Smokeless tobacco: Never Used Substance and Sexual Activity Alcohol use: No Drug use: No Sexual activity: Not Currently Lifestyle Physical activity Days per week: Not on file Minutes per session: Not on file Stress: Not on file Relationships Social connections Talks on phone: Three times a week Gets together: Once a week Attends religion service: Not on file Active member of club or organization: Not on file Attends meetings of clubs or organizations: Not on file Relationship status: Not on file Other Topics Concern Not on file Social History Narrative Not on file Past Surgical History: Procedure Laterality Date BONE MARROW BIOPSY W/ ASPIRATION 06/04/2018 ........Dr. Pat BREAST BIOPSY Left 10/12/2017 Stereo-proliferative fibrocystic changes and associated microcalcifications, focal pseudoangiomatous stromal hyperplasia CATARACT EXTRACTION, BILATERAL COLONOSCOPY 37 years old..Diverticulitis COLONOSCOPY 05/07/2017 diverticulosis, signle polyp in sigmoid, internal hermorrhoids...Dimitris DILATION AND CURETTAGE OF UTERUS for utreine bleeding LAMINECTOMY DISC ANTERIOR CERVICAL W/ FUSION MULTI LEVEL Bilateral 06/07/2020 Procedure: Anterior Cervical Discectomy and Fusion, C4-5 and C5-6; Surgeon: Jose Gallagher MD; Location: Main OR; Service: Neurological LUMBAR FUSION 10/19/2017 Allergies Allergen Reactions Latex Rash Patient's Medications New Prescriptions No medications on file Previous Medications ASPIRIN 81 MG EC TABLET Take 81 mg by mouth daily. ATORVASTATIN (LIPITOR) 40 MG TABLET Take 1 (one) tablet (40 mg total) by mouth at bedtime . BLOOD PRESSURE MONITOR (BLOOD PRESSURE KIT) KIT To monitor blood pressure twice daily . BLOOD SUGAR DIAGNOSTIC (GLUCOSE BLOOD) STRIPS To check blood sugar four times daily E11.65 . BLOOD-GLUCOSE METER [facility] To check Blood sugar 4 times daily E11.65 . DULOXETINE (CYMBALTA) 60 MG CAPSULE Take 1 (one) capsule (60 mg total) by mouth daily . INSULIN ASPART U-100 (NOVOLOG U-100 INSULIN ASPART) 100 UNIT/ML INJECTION Inject 26 (twenty six) Units under the skin 3 (three) times a day before meals . INSULIN GLARGINE (LANTUS SOLOSTAR U-100 INSULIN) 100 UNIT/ML (3 ML) INPN Take 55units every eveningat bedtime . LANCETS (ACCU-CHEK FASTCLIX LANCET DRUM) [facility] Dg code E11.65 Use as directed 4 times daily . LIRAGLUTIDE (VICTOZA 2-PUMA) 0.6 MG/0.1 ML (18 MG/3 ML) PEN Inject 1.8 mg under the skin once daily . METOCLOPRAMIDE (REGLAN) 10 MG TABLET TAKE ONE TABLET BY MOUTH FOUR TIMES DAILY WITH MEALS AND EVERYNIGHT NYSTATIN (MYCOSTATIN) OINTMENT Apply topically 2 (two) times a day . PANTOPRAZOLE (PROTONIX) 40 MG TABLET TAKE ONE TABLET BY MOUTH ONCE DAILY PEN NEEDLE, DIABETIC 31 GAUGE X 5/16" NDLE Use as directed for insulin adm. Insulin and Victoza . Modified Medications Modified Medication Previous Medication ALCOHOL PREP PADS PADM Alcohol Prep Pads PadM Use as directed 4x daily. DX code E11.65 . Use as directed 4x daily. DX code E11.65 . GABAPENTIN (NEURONTIN) 600 MG TABLET gabapentin (NEURONTIN) 600 MG tablet Take 1 (one) tablet (600 mg total) by mouth 3 (three) times a day . Take 1 (one) tablet (600 mg total) by mouth 3 (three) times a day . GLIMEPIRIDE (AMARYL) 2 MG TABLET glimepiride (AMARYL) 2 MG tablet Take 1 tablet PO BID . Take 1 tablet PO BID . INSULIN SYRINGE-NEEDLE U-100 (SURE COMFORT INSULIN SYRINGE) 0.3 ML 31 GAUGE X 5/16" SYRG insulin syringe-needle U-100 (Sure Comfort Insulin Syringe) 0.3 mL 31 gauge x 5/16" Syrg Use as directed 4 times daily, Dx E11.65 . Use as directed 4 times daily, Dx E11.65 . LISINOPRIL (PRINIVIL,ZESTRIL) 20 MG TABLET lisinopril (PRINIVIL,ZESTRIL) 20 MG tablet Take 1 (one) tablet (20 mg total) by mouth daily . Take 1 (one) tablet (20 mg total) by mouth daily. METOPROLOL TARTRATE (LOPRESSOR) 25 MG TABLET metoprolol tartrate (LOPRESSOR) 25 MG tablet Take 1 (one) tablet (25 mg total) by mouth 2 (two) times a day . Take 1 (one) tablet (25 mg total) by mouth 2 (two) times a day . Discontinued Medications BUSPIRONE (BUSPAR) 10 MG TABLET Take 10 mg by mouth 3 (three) times a day. LANCETS 33 GAUGE [facility] USE TO TEST FOUR TIMES DAILY - TruePlus Ultra thing 30g . Review of Systems Review of Systems Constitutional: Negative for activity change, appetite change, fatigue, malaise/fatigue and weight loss. HENT: Negative for sore throat. Respiratory: Negative for cough and shortness of breath. Cardiovascular: Negative for chest pain, palpitations and PND. Gastrointestinal: Negative for heartburn and melena. Musculoskeletal: Positive for neck pain (chornic ). Negative for myalgias and muscle weakness. Neurological: Negative for dizziness, focal weakness, facial asymmetry, light- headedness and headaches. Psychiatric/Behavioral: Negative for agitation. The patient is not nervous/anxious. Vitals: 08/22/20 1444 BP: 134/77 BP Location: Right arm Patient Position: Sitting BP Cuff Size: X-large Adult Pulse: 75 Resp: 16 Temp: 98.1 F (36.7 C) TempSrc: Temporal SpO2: 97% Weight: 105.2 kg (232 lb) Body mass index is 39.82 kg/m . Physical Exam Physical Exam Vitals signs reviewed. Constitutional: Appearance: Normal appearance. She is well-developed. HENT: Head: Normocephalic. Right Ear: External ear normal. Left Ear: External ear normal. Nose: Nose normal. Eyes: General: Lids are normal. Cardiovascular: Rate and Rhythm: Normal rate and regular rhythm. Heart sounds: Normal heart sounds. Pulmonary: Effort: Pulmonary effort is normal. Breath sounds: Normal breath sounds. Musculoskeletal: Normal range of motion. Comments: Ambulates with assistance of a cane. Skin: General: Skin is warm and dry. Neurological: General: No focal deficit present. Mental Status: She is alert and oriented to person, place, and time. Coordination: Coordination is intact. Gait: Gait is intact. Psychiatric: Attention and Perception: Attention normal. Mood and Affect: Mood normal. Speech: Speech normal. Behavior: Behavior normal. Behavior is cooperative. Thought Content: Thought content normal. Cognition and Memory: Cognition normal. Judgment: Judgment normal. OARRS/NARxCHECK Report Received and Assessed: 06/26/2020 Date controlled substance agreement signed: 08/22/2019 Date of last drug screen: 08/22/2019 Functional Assessment: Last narcotic script filled 06/11/2020 The 10-year ASCVD risk score (Talat IAN Jr., et al., 2013) is: 6.4% Values used to calculate the score: Age: 55 years Sex: Female Is Non- : No Diabetic: Yes Tobacco smoker: No Systolic Blood Pressure: 134 mmHg Is BP treated: Yes HDL Cholesterol: 45 mg/dL Total Cholesterol: 190 mg/dL Assessment/Plan Problem List Items Addressed This Visit Cardiovascular and Mediastinum Hypertension Stable, continue medications as ordered, increase activity as tolerated, reduce salt intake as thiscan cause fluid retention, and watch diet, it is best to eat as . Continue to monitor blood pressure at home in the morning upon awakening and in the evening prior to going to bed. Bring blood pressure log and cuff to your next visit. Relevant Medications metoprolol tartrate (LOPRESSOR) 25 MG tablet lisinopriL (PRINIVIL,ZESTRIL) 20 MG tablet Musculoskeletal and Integument Herniated intervertebral disc of lumbar spine - Primary I have ordered a Lift Chair as requested, I am unsure if your insurance will cover this. I recommend that you contact them for their coverage. Relevant Orders Electric chair lift Other Fibromyalgia Continue to take Gabapentin as ordered, doing well on this medication. At your next appointment, you will be due to a controlled substance agreement, and urine drug screen. Relevant Medications gabapentin (NEURONTIN) 600 MG tablet S/P cervical spinal fusion Relevant Orders Electric chair lift Goals Reducing Risks Patient SPECIFICALLY identifies the Self Care Behavior Goal of Reducing Risks. Patient will MEASURE progress by: monitoring glucose, engagement in self care foot exam;; A1C <7; BS monitoring; Nutrition, Acitivity) Patient's goal will be ACHIEVED by implementing Resources provided: Handouts, electronic references). Barriers will be: Pt. Engagement, insurance barriers addressed by outreach and education Goal is REALISTIC as evidenced by Confidence level of: unsure 1 month to initiate TIMEFRAME for the goal is: 3 months For any new medications prescribed today, patient was educated about indications for the medication, how to take the medication and potential side effects of the medications. Please note: Portions of this chart may have been created with [employer] voice recognition software. Occasional wrong-word or "sound-like" substitutions may have occurred due to inherent limitations of the voice recognition software. Please read the chart carefully and recognize, using context, where the substitutions have occurred. documented in this encounter* Patricia Abdi RD - 08/08/2019 2:20 PM EST Nutrition note: This is RD's third attempt to follow up with this pt. Left message with RD contact information on pt's voicemail. Also sent [employer] message which included: Mariam Arias, I am sending you this message to follow up with you. How is your goal coming along of trying carbohydrate counting with a goal of 45 grams of carbohydrates at meals, 3 days a week? Any barriers to this goal? Do you know your current weight? How have your blood sugars been like? Did you receive the handouts I sent to you in the mail? Any questions about the handouts or other nutrition- related questions for me at this time? If you're interested, please feel free to reply to this message or call me at the number listed below at your convenience. I hope you have a wonderful day. Best regards, Alanna Abdi RD, LD Dietitian with [facility] [phone]" Patricia Abdi RD, WAQAR Pt sent RD a [employer] message which included: Yes I received the handouts . Ty 45 grams of carbs at each meal 3 days a week is working well whenI started I weighed 258 pounds I now weigh 253" RD replied to the message with: Ki Arias, Great! Congratulations on the weight loss! Would you like me to follow up with you in about 3 weeksor we can go longer if you would like? If you're no longer interested in follow ups, please let me know. Also, please feel free to contact me if you have nutrition-related questions in the future. Keep up the good work! Thanks, Alanna Abdi RD, WAQAR Dietitian with [facility] [phone]" Patricia Abdi RD, LD documented in this encounter* Kristie Vera RN - 06/12/2020 1:57 PM EDT PEDRO rising risk d/c 06/07/2020 - 06/11/2020 Dx. Anterior Cervical Discectomy and Fusion, C4-5 and C5-6. Phone busy. Home health ordered. START taking: oxyCODONE-acetaminophen (PERCOCET) STOP taking: meloxicam 15 MG tablet (MOBIC) Future Appointments Date Time Provider Department Center 06/12/2020 2:00 PM Greg Valentine, JEREMY [facility] 06/19/2020 7:00 AM MH PET VIRTUAL PET 06/19/2020 8:00 AM MH PET1 MH PET 06/20/2020 1:45 PM Jose Gallagher MD [facility] NS GLSN 07/09/2020 3:45 PM Garima Combs, JOVANA [facility] END GLS3 08/22/2020 3:00 PM Marianela Fowler, CORPORATE CONSULTANT [facility] documented in this encounter* Heidy Gore RN - 06/19/2020 7:00 AM EDT C91.7 pulm nod. Recent cervical neck fusion. Wearing brace documented in this encounter* Kristie Vera RN - 01/04/2019 8:49 AM EDT Lab Results Component Value Date HGBA1C 8.1 (A) 12/29/2018 HGBA1C 9.9 (A) 07/20/2018 HGBA1C 10.3 (A) 02/24/2018 Lab Results Component Value Date CREATININE 0.87 08/23/2018 documented in this encounter* Patricia Abdi RD - 08/05/2019 1:20 PM EST Nutrition note: This is RD's second attempt to follow up with this pt. Patient identification verified by at least three identifiers prior to case management which included Full Name, Date of and Phone number.Patient agreed to exchange information. Pt stated it was not a good time to talk and requested thatRD call back this Thursday after [address] to call back as requested. Patricia Abdi RD, LD documented in this encounter* Kristie Vera RN - 02/14/2019 3:14 PM EDT Attempted to call patient regarding Chronic Care Management goal initiation on 02/14/19 sixth attempt at contacting patient. Unsuccessful attempt due to no answer, left message to return my call on answering machine [employer] message sent Lab Results Component Value Date HGBA1C 8.1 (A) 12/29/2018 HGBA1C 9.9 (A) 07/20/2018 HGBA1C 10.3 (A) 02/24/2018 Lab Results Component Value Date CREATININE 0.87 08/23/2018 Future Appointments Date Time Provider Department Center 04/29/2019 10:15 AM Naomi Reece MD [facility] END GLS3 05/05/2019 1:30 PM Marianela Fowler CNP [facility] 05/11/2019 3:30 PM Kary Lennon CNP [facility] ORT GLSN Mychart message sent documented in this encounter* Kristie Vera RN - 11/02/2020 12:52 PM EST COVID positive confirmed 11/01/20. Pt. Notified yes ED visit Outreach for Body Stylist questionnaire. No answer, VM full documented in this encounter* Francisco Stokes MD - 11/06/2020 1:52 PM EST Telephone Visit Via Phone Call [facility] [address] ([address]) [facility] PHYSICIAN [facility] [address] [facility] [phone] Telephone Visit [facility] Physician [facility] 11/06/2020 Francisco Stokes MD Provider Location: [facility] Patient Location Flight Crew Time Clerk: None Patient Location: Patient's Home Patient: Juana Handy Date of : 1965 (55 y.o. female) PCP: Marianela Fowler CNP I discussed risks, benefits and alternatives of a telephone visit telemedicine consultation with the patient (and any accompanying persons) including the risks that the patient's personal health details and medical records will be discussed over real-time, synchronous, interactive audio technology,the visit will not be recorded without the express consent of both the provider and the patient, and that there are inherent diagnostic limitations compared to [id number] evaluations. We elected toproceed with the telephone visit telemedicine consultation. HPI 55yo with a hx of Type 2 DM, neuropathy, fibromyalgia, spinal surgery referred for evaluation of a IRMA pulmonary nodule. She unfortunately also developed COVID-19 pneumonia - dx on 11/01/20 and is currently in home quarantine so this visit was via telephone. She is a never smoker. She denies occupational lung exposures. She denies hx of severe pneumonia or lung disease in the past. Her father did of lung cancer so she is anxious that she has a nodule. We discussed the various options for herlung nodule including serial monitoring, biopsy or resection. She would like to pursue biopsy. As for her COVID sx she reports fevers, dyspnea, body ache and dry cough. Her sx are stable. Sh feels better when she uses her albuterol inhaler. She was advised that if her breathing worsens to return tot ER. She was very emotional throughout the visit. The following portions of the patient's history were reviewed and updated as appropriate: allergies, current medications, past family history, past medical history, past social history, past surgicalhistory and problem list. Review of Systems complete and negative except as documented above Patient's Medications New Prescriptions No medications on file Previous Medications ALBUTEROL (VENTOLIN HFA) 90 MCG/ACTUATION INHALER Inhale 2 (two) puffs every 6 (six) hours as needed for wheezing . ALCOHOL PREP PADS PADM Use as directed 4x daily. DX code E11.65 . ASPIRIN 81 MG EC TABLET Take 81 mg by mouth daily. ATORVASTATIN (LIPITOR) 40 MG TABLET Take 1 (one) tablet (40 mg total) by mouth at bedtime . BENZONATATE (TESSALON) 100 MG CAPSULE Take 1 (one) capsule (100 mg total) by mouth 3 (three) times a day as needed for cough . BLOOD PRESSURE MONITOR (BLOOD PRESSURE KIT) KIT To monitor blood pressure twice daily . BLOOD SUGAR DIAGNOSTIC (GLUCOSE BLOOD) STRIPS To check blood sugar four times daily E11.65 . BLOOD-GLUCOSE METER MISC To check Blood sugar 4 times daily E11.65 . CEPHALEXIN (KEFLEX) 500 MG CAPSULE Take 1 (one) capsule (500 mg total) by mouth 2 (two) times a dayfor 7 days . DULOXETINE (CYMBALTA) 60 MG CAPSULE Take 1 (one) capsule (60 mg total) by mouth daily . GABAPENTIN (NEURONTIN) 600 MG TABLET Take 1 (one) tablet (600 mg total) by mouth 3 (three) times a day . GLIMEPIRIDE (AMARYL) 2 MG TABLET Take 1 tablet PO BID . INSULIN ASPART U-100 (NOVOLOG FLEXPEN U-100 INSULIN) 100 UNIT/ML (3 ML) INPN Inject 30 (thirty) Units under the skin 3 (three) times a day before meals . INSULIN GLARGINE (LANTUS SOLOSTAR U-100 INSULIN) 100 UNIT/ML (3 ML) INPN Take 55units every eveningat bedtime . INSULIN SYRINGE-NEEDLE U-100 (SURE COMFORT INSULIN SYRINGE) 0.3 ML 31 GAUGE X 5/16" SYRG Use as directed 4 times daily, Dx E11.65 . LANCETS (ACCU-CHEK FASTCLIX LANCET DRUM) [facility] Dg code E11.65 Use as directed 4 times daily . LIDOCAINE (LIDOCAINE) 2 % SOLN Applied on teeth were swish and spit every few hours may use cotton ball also for pain . LIRAGLUTIDE (VICTOZA 2-PUMA) 0.6 MG/0.1 ML (18 MG/3 ML) PEN Inject 1.8 mg under the skin once daily . LISINOPRIL (PRINIVIL,ZESTRIL) 20 MG TABLET Take 1 (one) tablet (20 mg total) by mouth daily . METOCLOPRAMIDE (REGLAN) 10 MG TABLET TAKE ONE TABLET BY MOUTH FOUR TIMES DAILY WITH MEALS AND EVERYNIGHT METOPROLOL TARTRATE (LOPRESSOR) 25 MG TABLET Take 1 (one) tablet (25 mg total) by mouth 2 (two) times a day . NYSTATIN (MYCOSTATIN) OINTMENT Apply topically 2 (two) times a day . PANTOPRAZOLE (PROTONIX) 40 MG TABLET TAKE ONE TABLET BY MOUTH ONCE DAILY PEN NEEDLE, DIABETIC 31 GAUGE X 5/16" NDLE Use as directed for insulin adm. Insulin and Victoza . Modified Medications No medications on file Discontinued Medications No medications on file Assessment/Plan: 1. IRMA nodule - 8x9 mm with only very mild PET avidity in a non-smoker, this is unlikely to be malignancy, and if it is malignancy is likely to be very slow growing. There is no associated mediastinal or hilar LAD so she is not a candidate for EBUS tissue sampling. We had a prolonged discussion about the risks and benefits of serial monitoring with CT scans vs possible biopsy vs resection. She reports she would like to know what it is since her father had lung cancer. I have placed a referral to Dr. Mari with interventional radiology to see if CT-guided bx is feasible. Could also refer directly for resection with thoracic surgery given patient's goals and concerns - either way will need to wait until the patient is no longer infectious for further procedures - this was explained to the patient. 2. COVID-19 pneumonia - Dx on 11/01. Symptomatic management at home. Advised she could use hre albuterol inhaler more frequently than every 6hr if it gave her relief. Reviewed warning sx on when to return to the ER. I have spent 25 minutes with the patient reviewing the HPI and Plan of Care. documented in this encounter* Carolee Aguirre LPN - 05/17/2019 4:14 PM EDT Nurse reviewed ER documentation Spoke to: Patient Pt discharge from: [facility] ER date: 05/16/19 Reason for ER visit: bilateral lower extremity pain New Medications and/or treatment include: n/a Are you taking your medications as directed on the hospital discharge? N.a Education/Recommendations: Patient reports her pain is not as bad as yesterday. She reports the pain is 5/10 stabbing pain. Patient is taking tylenol for pain. It helps some. Patient reports she is eating and drinking ok. She reports resting in bed all day today. Hospital ER revisit within past 30 days? no Same or different diagnosis? n/a Appointments made: Patient reports she has already been in contact with PCP today and will call them back to schedule as needed. documented in this encounter* Farhad Palmer PA-C - 08/05/2019 1:24 PM EST Patient ID: Juana Handy is a 54 y.o. female 1965 Subjective: Juana Handy presents for follow-up of Type 2 diabetes Patient has had diabetes for 3 years. Diagnosed in 2016 Patient has taken Insulin for 1 year. Patient reports that she continues to struggle with stressors with family and at home. She states during that time her blood sugars were out of control due to stress. She reports that she checks her blood sugar 4 times a day however she did not bring those readings with her for review. Her most recent hemoglobin A1c is 9.2% today in the office, slightly improved from 9.4% on 04/28/2019. She has been seeing a flight security specialist recently to help regulate her diet and limit her carbohydrates. Currently Taking: Admelog 15/15/18u with meals Basaglar 43 units QHS. Victoza 1.2 mg daily Glimepiride 2 mg twice a day Current Outpatient Medications Medication Sig Dispense Refill ADMELOG U-100 INSULIN LISPRO 100 unit/mL injection INJECT 15 UNITS SUBCUTANEOUSLY THREE TIMES DAILYBEFORE MEALS 10 mL 5 ALCOHOL PREP PADS PadM Use as directed 4x daily. DX code E11.65 . 200 each 5 ammonium lactate (LAC-HYDRIN) 12 % lotion Apply topically 2 (two) times a day as needed for dry skin . 400 g 5 aspirin 81 MG EC tablet Take 81 mg by mouth daily. atorvastatin (LIPITOR) 40 MG tablet Take 1 (one) tablet (40 mg total) by mouth at bedtime . 30 tablet 11 BASAGLAR KWIKPEN U-100 INSULIN 100 unit/mL (3 mL) InPn INJECT 40 UITS UNDER THE SKIN NIGHTLY 15 Syringe 1 BD INSULIN SYRINGE HALF UNIT 0.3 mL 31 gauge x 5/16" Syrg blood-glucose meter (TRUE METRIX GLUCOSE METER) Mis Use to check BG 3x daily. DX code E11.65 NeedsTrue Metrix Meter . 1 each 0 DULoxetine (CYMBALTA) 60 MG capsule Take 1 (one) capsule (60 mg total) by mouth daily . 30 capsule 11 gabapentin (NEURONTIN) 600 MG tablet Take 1 (one) tablet (600 mg total) by mouth 3 (three) times a day . 90 tablet 0 glimepiride (AMARYL) 2 MG tablet Take 1 tablet PO BID . 180 tablet 3 lancets 33 gauge Misc USE TO TEST FOUR TIMES DAILY . 200 each 1 liraglutide (VICTOZA 2-PUMA) 0.6 mg/0.1 mL (18 mg/3 mL) Pen Inject 1.2 mg under the skin daily . 6 mL 5 lisinopril (PRINIVIL,ZESTRIL) 20 MG tablet Take 1 (one) tablet (20 mg total) by mouth daily . 30 tablet 11 meloxicam (MOBIC) 15 MG tablet Take 1 (one) tablet (15 mg total) by mouth daily . 30 tablet 11 metoprolol tartrate (LOPRESSOR) 25 MG tablet Take 1 (one) tablet (25 mg total) by mouth 2 (two) times a day . 60 tablet 11 pantoprazole (PROTONIX) 40 MG tablet Take 1 (one) tablet (40 mg total) by mouth daily . 30 tablet 11 pen needle, diabetic 31 gauge x 5/16" Ndle Use as directed for insulin adm. Insulin and Victoza . 150 each 11 SURE COMFORT INSULIN SYRINGE 0.3 mL 31 gauge x 5/16 Syrg TRUE METRIX GLUCOSE TEST STRIP strips To test three times a day. DX code E11.65 . 100 each 11 insulin lispro (HumaLOG KwikPen Insulin) 100 unit/mL InPn Inject 15 (fifteen) Units under the skin 3 (three) times a day. (Patient not taking: Reported on 08/05/2019 .) 15 mL 5 No current facility-administered medications for this visit. Review of Systems: Review of Systems Constitutional: Negative for appetite change and fatigue. Eyes: Negative for visual disturbance. Respiratory: Negative for cough, chest tightness, shortness of breath and wheezing. Cardiovascular: Negative for chest pain, palpitations and leg swelling. Gastrointestinal: Negative for abdominal pain, constipation, diarrhea, nausea and vomiting. Endocrine: Negative for polydipsia, polyphagia and polyuria. Genitourinary: Negative for dysuria and frequency. Musculoskeletal: Positive for back pain and gait problem. Negative for arthralgias and myalgias. Neurological: Positive for numbness. Negative for weakness and headaches. The following portions of the patient's history were reviewed and updated as appropriate: allergies, current medications, past family history, past medical history, past social history, past surgicalhistory and problem list. Objective: BP 104/71 Pulse 87 Ht 5' 4" Wt 114.3 kg (252 lb) BMI 43.26 kg/m Wt Readings from Last 3 Encounters: 08/05/19 114.3 kg (252 lb) 05/11/19 116.6 kg (257 lb) 05/05/19 117.5 kg (259 lb 1.6 oz) Physical Exam: General: alert, appears stated age and cooperative Eyes: conjunctivae/corneas clear. PERRL, EOM's intact. Neck: no adenopathy, supple, symmetrical, trachea midline. Thyroid: No thyromegaly appreciated Lung: clear to auscultation bilaterally Heart: regular rate and rhythm, S1, S2 normal, no murmur, click, rub or gallop Extremities: extremities normal, atraumatic, no cyanosis or edema, uses cane to get around. SKIN: multiple flat, reddened scratch appearing areas all over her chest, arms and legs. No evidence of infection noted. Feet: Dry skin, Bilateral Feet: normal DP. Monofilament exam abnormal, bilateral lower extremities. Neuro: normal without focal findings, mental status, speech normal, alert and oriented x3 and AYO Lab Review Lab Results Component Value Date HGBA1C 9.4 (H) 04/28/2019 Glucose (mg/dL) Date Value 05/16/2019 98 Creatinine (mg/dL) Date Value 05/16/2019 0.84 08/23/2018 0.87 Lab Results Component Value Date CHOL 138 04/28/2019 TRIG 183 (H) 04/28/2019 HDL 40 04/28/2019 LDLCALC 61 04/28/2019 Lab Results Component Value Date TSH 2.83 08/23/2018 Lab Results Component Value Date WBC 11.58 (H) 04/19/2019 HGB 12.3 04/19/2019 HCT 37.2 04/19/2019 MCV 84.0 04/19/2019 PLT 318 04/19/2019 04/28/19 Hemoglobin A1C 9.4% Creatinine 1.00 GFR > 60 Cholesterol 138 Triglycerides 183 HDL 40 LDL 61 12/28/18 HgbA1C 8.1% Date: 08/23/18 Creatinine 0.87, sodium 138, potassium 4.1, estimated GFR greater than 60 AST 22, ALT 29 Total cholesterol 140, triglycerides 200, HDL 41, LDL 59 WBC 9.7, hemoglobin 12.3, hematocrit 37.0, platelet count 332,000 TSH 2.83, FT4--1.0 Microalbumin/creatinine ratio 13 07/20/18 HgbA1c 9.9% 02/24/18 HgbA1c 10.3% Assessment/Plan: Dx: 1. Uncontrolled type 2 diabetes mellitus with hyperglycemia, with long-term current use of insulin ([facility]) POC Hemoglobin A1C POC Glucose Comprehensive Metabolic Panel Hemoglobin A1c Lipid Panel T4, Free TSH External Lab Microalbumin/Creatinine Type 2 diabetes, under poor control Patient is currently managed with: Currently taking: Glimepiride 2 mg twice daily Humalog insulin: 15 units at breakfast; 15 units at lunch; 18 units at supper Basaglar insulin: 43 units at bedtime Victoza 1.2 mg daily Current Hemoglobin A1C= 9.2% today in the office Lab Results Component Value Date HGBA1C 9.4 (H) 04/28/2019 HGBA1C 8.1 (A) 12/29/2018 HGBA1C 9.9 (A) 07/20/2018 Weight trend: is stable Current diet: carb controlled, Current exercise: no regular exercise Current monitoring regimen: home blood tests - 4 times daily None to review Home blood sugar records: Any episodes of hypoglycemia? 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 yes Lisinopril Peripheral Neuropathy: Positive Reports bilateral numbness and tingling in feet; has numbness in right foot from back.Taking Gabapentin 600mg oral TID, but reports its not effective. Patient instructed to refer that issue to the pain specialist she will be seen at [facility]. Autonomic Neuropathy: Negative Hypoglycemia unawareness. Senses low BG at 90 mg/dl. Other: Hyperlipidemia: Negative Currently taking: atorvastatin (Lipitor). Cholesterol 138Triglycerides 183 HDL 40 LDL 61 04/28/19 Lab Results Component Value Date AST 36 04/28/2019 ALT 34 04/28/2019 Lab Results Component Value Date EXTCHOL 140 08/23/2018 EXTTRIG 200 (H) 08/23/2018 EXTHDL 41 08/23/2018 Hypertension: Positive. Currently taking: lisinopril (Prinivil) and metoprolol (Lopressor, Toprol) BP: 104/71 Cardiac: Negative Experiencing chest pain no . Experiencing shortness of breath no History of No history of CAD and ETT normal 03/31 Vascular: Negative edema Feet: Positive; she has plantar wart left foot; sores or lesions at this time. Last foot exam: 04/29/19. Sees Dr. Zuñiga for foot care, every 2 weeks or so for injections for pain to ankles. Thyroid: Negative Other: Chronic back pain, s/p 2 back surgeries 10/19/17, 05/10/18. L4-L5 fusions. Awaiting to see PainSpecialist at [facility] for steroid back injections. Plan: 1. Rx changes: adjust insulin: Basaglar insulin: 43 units at bedtime Admelog 15 units at breakfast, 15 units at lunch, 18 units at dinner Glimepiride 2 mg twice daily Victoza 1.2 mg daily Patient's hemoglobin A1c slightly improved since her last appointment. No changes were made today as there were no readings to evaluate. Strongly encouraged her to report her readings by any means necessary to the office for insulin dose adjustments. 2. Education: Reviewed ABCs of diabetes management (respective goals in parentheses): A1C (7.0-8.0), blood pressure (<130/80), and cholesterol (LDL <100). 3. Compliance at present is estimated to be good. Efforts to improve compliance (if necessary) willbe directed at dietary modifications: carb controlled, no concentrated sugars and regular blood sugar monitorin times daily. 4. Follow up: 3 months 5. Record blood sugar readings as instructed. Call if BG consistently <70 or >250. [phone] Continue to check blood sugar 4 times daily. She has been checking blood glucoses because she is on 4 times daily insulin and assesses her bloodglucose before giving insulin dose. She has had some episodes of hypoglycemia. Her insulin doses will be adjusted based on her blood glucoses at her office appointments, when she brings her glucose readings to the office. Prognosis: Good Duration of need: Permanent 6. Bring blood sugar meter to follow up appointment. Orders Placed This Encounter Procedures Comprehensive Metabolic Panel Hemoglobin A1c Lipid Panel T4, Free TSH External Lab Microalbumin/Creatinine POC Hemoglobin A1C POC Glucose Electronically signed by: aFrhad Palmer PA-C, [facility] 08/09/19 7:05 PM documented in this encounter* Kary Lennon, CORPORATE CONSULTANT - 01/26/2019 4:00 PM EDT POST OP NOTE [facility] [address] ([address]) [facility] [address] [facility] [id number] Procedure date:05/10/2018 Juana Handy is a 53 y.o. female seen in the office today for follow up 8 months post op following L4-5 lumbar fusion with hardware. Incision:healing well, no significant drainage, no dehiscence, no significant erythemastaplesremoved. Pain:moderate pain with movement. She has finished therapy.She states pain is worse than before back surgery. She is able to ambulate and has negative straight leg raise test. She states she has spasms but does not get relief with muscle relaxer. She is asking for pain medicine. No signs of obvious infection. Neurovascular exam is grossly normal distally. Capillary refill <3 sec. No skin breakdown. Range of motion and strength satisfactory and 4/5. . Imaging: X-Rays: Office films, 2 Views lumbar hardware in acceptable position at L4 and L5 level. Restrictions;full duty Plan The patient is aware of the addictive nature of narcotics. Education was given. He/ she has had a major orthopedic procedure but is past her 90 day requirement. We will reer to pain management @No follow-ups on file. Kary Lennon CNP 01/20/2019 documented in this encounter* Marianela Fowler CNP - 05/22/2020 12:19 PM EDT OFFICE VISIT PROGRESS NOTE Juana Handy is a 54 y.o. female with a past medical history of Patient Active Problem List Diagnosis Lumbar degenerative disc disease Herniated intervertebral disc of lumbar spine Spinal stenosis of lumbar region without neurogenic claudication Uncontrolled type 2 diabetes mellitus with hyperglycemia, with long-term current use of insulin ([facility]) Neuropathy involving both lower extremities Type 2 diabetes mellitus without complication, with long-term current use of insulin ([facility]) H/O spinal fusion Essential hypertension Hyperlipidemia Fibromyalgia Class 3 severe obesity with serious comorbidity and body mass index (BMI) of 45.0 to 49.9 in adult (HCC) Degenerative disc disease, cervical Gastroesophageal reflux disease Chronic neck pain Chronic thoracic spine pain Chronic bilateral low back pain Anxiety and depression Intractable vomiting Anxiety Pulmonary nodule, left who presents to the office today for a follow up on anxiety and depression. It was also reviewed with the patient her CT results. These results show a 9 x 8 mm pulmonary nodule that has increased in size compared to a CT completed in November 2017. Patient would like to proceedwith testing as recommended. Patient declines referral to pulmonology at this time. Anxiety Presents for follow-up visit. Patient reports no chest pain, compulsions, confusion, decreased concentration, depressed mood, dizziness, dry mouth, excessive worry, irritability, malaise, nervous/anxious behavior, palpitations, panic, restlessness or shortness of breath. Symptoms occur occasionally. The severity of symptoms is mild. The quality of sleep is good. Nighttime awakenings: occasional. Her past medical history is significant for depression. Compliance with medications is 76-100%. Depression Visit Type: follow-up Patient is not experiencing: compulsions, confusion, decreased concentration, depressed mood, dry mouth, excessive worry, feelings of hopelessness, feelings of worthlessness, irritability, malaise, nervousness/anxiety, palpitations, panic, restlessness and shortness of breath. Frequency of symptoms: occasionally Severity: mild Sleep quality: good Nighttime awakenings: occasional Compliance with medications: 76-100% Hypertension This is a chronic problem. The current episode started more than 1 year ago. The problem is controlled. Associated symptoms include anxiety. Pertinent negatives include no blurred vision, chest pain,headaches, neck pain, palpitations, peripheral edema or shortness of breath. There are no associated agents to hypertension. Risk factors for coronary artery disease include family history, obesity, diabetes mellitus, dyslipidemia, stress and sedentary lifestyle. The current treatment provides significant improvement. There are no compliance problems. Health Maintenance Topic Date Due Wellness Visit 1968 Ophthalmology Exam 1975 HIV Screening 1980 Hepatitis C Screening 1983 Zoster Vaccines (1 of 2) 2015 Pap Smear 04/28/2020 Sequential Influenza Vaccine (1) 05/15/2020 A1C 09/01/2020 Mammogram 01/26/2021 Urine Microalbumin 03/02/2021 Foot Exam 03/08/2021 Tetanus: Every 10yrs 07/11/2021 Colorectal Cancer Screening 05/07/2027 The following portions of the patient's history were reviewed and updated as appropriate: allergies, current medications and problem list. Family History Problem Relation Age of Onset Lung cancer Father Heart failure Father Heart disease Father Diabetes Brother Heart disease Brother Bone cancer Maternal Grandmother Heart failure Maternal Grandmother Stroke Maternal Grandmother Cancer Half-Sister unknown cancer (mother in common) Heart disease Sister Diabetes Sister Mental illness Daughter Cancer Paternal Grandmother Social History Socioeconomic History Marital status: Spouse name: Not on file Number of children: Not on file Years of education: Not on file Highest education level: Not on file Occupational History Not on file Social Needs Financial resource strain: Somewhat hard Food insecurity Worry: Sometimes true Inability: Sometimes true Transportation needs Medical: No Non-medical: Yes Tobacco Use Smoking status: Never Smoker Smokeless tobacco: Never Used Substance and Sexual Activity Alcohol use: No Drug use: No Sexual activity: Not Currently Lifestyle Physical activity Days per week: Not on file Minutes per session: Not on file Stress: Not on file Relationships Social connections Talks on phone: Three times a week Gets together: Once a week Attends religion service: Not on file Active member of club or organization: Not on file Attends meetings of clubs or organizations: Not on file Relationship status: Not on file Other Topics Concern Not on file Social History Narrative Not on file Past Surgical History: Procedure Laterality Date BONE MARROW BIOPSY W/ ASPIRATION 06/04/2018 ........Dr. Pat BREAST BIOPSY Left 10/12/2017 Stereo-proliferative fibrocystic changes and associated microcalcifications, focal pseudoangiomatous stromal hyperplasia CATARACT EXTRACTION, BILATERAL COLONOSCOPY 37 years old..Diverticulitis COLONOSCOPY 05/07/2017 diverticulosis, signle polyp in sigmoid, internal hermorrhoids...Dimitris DILATION AND CURETTAGE OF UTERUS for utreine bleeding LUMBAR FUSION 10/19/2017 Allergies Allergen Reactions Latex Rash Patient's Medications New Prescriptions No medications on file Previous Medications ALCOHOL PREP PADS PADM Use as directed 4x daily. DX code E11.65 . ASPIRIN 81 MG EC TABLET Take 81 mg by mouth daily. ATORVASTATIN (LIPITOR) 40 MG TABLET Take 1 (one) tablet (40 mg total) by mouth at bedtime . BLOOD PRESSURE MONITOR (BLOOD PRESSURE KIT) KIT To monitor blood pressure twice daily . BLOOD-GLUCOSE METER (TRUE METRIX GLUCOSE METER) [facility] Use to check BG 3x daily. DX code E11.65 NeedsTrue Metrix Meter . DULOXETINE (CYMBALTA) 60 MG CAPSULE Take 1 (one) capsule (60 mg total) by mouth daily . GABAPENTIN (NEURONTIN) 600 MG TABLET Take 1 (one) tablet (600 mg total) by mouth 3 (three) times a day . GLIMEPIRIDE (AMARYL) 2 MG TABLET Take 1 tablet PO BID . INSULIN GLARGINE (BASAGLAR KWIKPEN U-100 INSULIN) 100 UNIT/ML (3 ML) INPN Use nightly as directed, approx 50 units . INSULIN LISPRO (HUMALOG) 100 UNIT/ML INJECTION Inject 26 (twenty six) Units under the skin 3 (three) times a day before meals . INSULIN SYRINGE-NEEDLE U-100 (SURE COMFORT INSULIN SYRINGE) 0.3 ML 31 GAUGE X 5/16" SYRG Use as directed 4 times daily, Dx E11.65 . LANCETS 33 GAUGE MISC USE TO TEST FOUR TIMES DAILY - TruePlus Ultra thing 30g . LISINOPRIL (PRINIVIL,ZESTRIL) 20 MG TABLET Take 1 (one) tablet (20 mg total) by mouth daily . MELOXICAM (MOBIC) 15 MG TABLET TAKE ONE TABLET BY MOUTH ONCE DAILY METOCLOPRAMIDE (REGLAN) 10 MG TABLET TAKE ONE TABLET BY MOUTH FOUR TIMES DAILY WITH MEALS AND EVERYNIGHT METOPROLOL TARTRATE (LOPRESSOR) 25 MG TABLET Take 1 (one) tablet (25 mg total) by mouth 2 (two) times a day . NYSTATIN (MYCOSTATIN) OINTMENT Apply topically 2 (two) times a day . PANTOPRAZOLE (PROTONIX) 40 MG TABLET TAKE ONE TABLET BY MOUTH ONCE DAILY PEN NEEDLE, DIABETIC 31 GAUGE X 5/16" NDLE Use as directed for insulin adm. Insulin and Victoza . TRUE METRIX GLUCOSE TEST STRIP STRIPS To test three times a day. DX code E11.65 . VICTOZA 2-PUMA 0.6 MG/0.1 ML (18 MG/3 ML) PEN INJECT 1.2 MG SUBCUTANEOUSLY DAILY Modified Medications No medications on file Discontinued Medications BUSPIRONE (BUSPAR) 10 MG TABLET Take 1 (one) tablet (10 mg total) by mouth 3 (three) times a day . INSULIN ASPART U-100 (NOVOLOG U-100 INSULIN ASPART) 100 UNIT/ML INJECTION Use as directed, approx 75 total units per day . INSULIN GLARGINE (LANTUS SOLOSTAR U-100 INSULIN) 100 UNIT/ML (3 ML) INPN Use as directed, approx 55units per day . Review of Systems Review of Systems Constitutional: Negative for activity change, appetite change, fatigue and irritability. Eyes: Negative for blurred vision. Respiratory: Negative for cough and shortness of breath. Cardiovascular: Negative for chest pain and palpitations. Musculoskeletal: Negative for neck pain. Neurological: Negative for dizziness, facial asymmetry, light-headedness and headaches. Psychiatric/Behavioral: Negative for agitation, confusion and decreased concentration. The patient is not nervous/anxious. Vitals: 05/22/20 1109 BP: 136/79 BP Location: Right arm Patient Position: Sitting BP Cuff Size: X-large Adult Pulse: 78 Resp: 18 Temp: 98 F (36.7 C) TempSrc: Temporal SpO2: 97% Weight: 107 kg (236 lb) Body mass index is 40.51 kg/m . Physical Exam Physical Exam Vitals signs reviewed. Constitutional: Appearance: Normal appearance. She is well-developed. HENT: Head: Normocephalic. Right Ear: External ear normal. Left Ear: External ear normal. Nose: Nose normal. Eyes: General: Lids are normal. Cardiovascular: Rate and Rhythm: Normal rate and regular rhythm. Heart sounds: Normal heart sounds. Pulmonary: Effort: Pulmonary effort is normal. Breath sounds: Normal breath sounds. Musculoskeletal: Normal range of motion. Skin: General: Skin is warm and dry. Neurological: General: No focal deficit present. Mental Status: She is alert and oriented to person, place, and time. Coordination: Coordination is intact. Gait: Gait is intact. Psychiatric: Attention and Perception: Attention normal. Mood and Affect: Mood normal. Speech: Speech normal. Behavior: Behavior normal. Behavior is cooperative. Thought Content: Thought content normal. Cognition and Memory: Cognition normal. Judgment: Judgment normal. OARRS/NARxCHECK Report Received and Assessed: 03/12/2020 Date controlled substance agreement signed: 08/22/2019 Date of last drug screen: 08/22/2019 Functional Assessment: No data found The 10-year ASCVD risk score (Talat DC Jr., et al., 2013) is: 7.3% Values used to calculate the score: Age: 54 years Sex: Female Is Non- : No Diabetic: Yes Tobacco smoker: No Systolic Blood Pressure: 136 mmHg Is BP treated: Yes HDL Cholesterol: 37 mg/dL Total Cholesterol: 189 mg/dL Assessment/Plan Problem List Items Addressed This Visit Cardiovascular and Mediastinum Essential hypertension Stable, continue medications as ordered, increase activity as tolerated, reduce salt intake as thiscan cause fluid retention, and watch diet, it is best to eat as . Continue to monitor blood pressure at home in the morning upon awakening and in the evening prior to going to bed. Bring blood pressure log and cuff to your next visit. Other Anxiety and depression Patient doing well on 60 mg of Cymbalta daily. Patient to continue to take this medication as ordered. Pulmonary nodule, left - Primary PET scan ordered today. Central scheduling to call to schedule for patient. Pulmonary nodules have enlarged since previous scan. Relevant Orders PET Tumor Imaging With CT Skull To Thigh Goals Reducing Risks Patient SPECIFICALLY identifies the Self Care Behavior Goal of Reducing Risks. Patient will MEASURE progress by: monitoring glucose, engagement in self care foot exam;; A1C <7; BS monitoring; Nutrition, Acitivity) Patient's goal will be ACHIEVED by implementing Resources provided: Handouts, electronic references). Barriers will be: Pt. Engagement, insurance barriers addressed by outreach and education Goal is REALISTIC as evidenced by Confidence level of: unsure 1 month to initiate TIMEFRAME for the goal is: 3 months For any new medications prescribed today, patient was educated about indications for the medication, how to take the medication and potential side effects of the medications. Please note: Portions of this chart may have been created with [employer] voice recognition software. Occasional wrong-word or "sound-like" substitutions may have occurred due to inherent limitations of the voice recognition software. Please read the chart carefully and recognize, using context, where the substitutions have occurred. Depression Screening 05/05/2019 02/29/2020 03/29/2020 05/22/2020 Little interest or pleasure in doing things 1 1 1 1 Feeling down, depressed, or hopeless 1 1 1 1 PHQ-2 Total Score 2 2 2 2 Trouble falling or staying asleep, or sleeping too much 1 2 2 2 Feeling tired or having little energy 1 1 1 1 Poor appetite or overeating 0 1 1 1 Feeling bad about yourself - or that you are a failure or have let yourself or your family down 0 10 0 Trouble concentrating on things, such as reading the newspaper or watching television 0 1 0 0 Moving or speaking so slowly that other people could have noticed. Or the opposite - being so fidgety or restless that you have been moving around a lot more than usual 0 0 0 0 Thoughts that you would be better off , or of hurting yourself in some way 0 0 0 0 PHQ-9 Total Score 4 8 6 6 If you checked off any problems, how difficult have these problems made it for you to do your work,take care of things at home, or get along with other people? Not difficult at all Not difficult at all Somewhat difficult Not difficult at all Depression Screening 05/05/2019 02/29/2020 03/29/2020 05/22/2020 Little interest or pleasure in doing things 1 1 1 1 Feeling down, depressed, or hopeless 1 1 1 1 PHQ-2 Total Score 2 2 2 2 Trouble falling or staying asleep, or sleeping too much 1 2 2 2 Feeling tired or having little energy 1 1 1 1 Poor appetite or overeating 0 1 1 1 Feeling bad about yourself - or that you are a failure or have let yourself or your family down 0 10 0 Trouble concentrating on things, such as reading the newspaper or watching television 0 1 0 0 Moving or speaking so slowly that other people could have noticed. Or the opposite - being so fidgety or restless that you have been moving around a lot more than usual 0 0 0 0 Thoughts that you would be better off , or of hurting yourself in some way 0 0 0 0 PHQ-9 Total Score 4 8 6 6 If you checked off any problems, how difficult have these problems made it for you to do your work,take care of things at home, or get along with other people? Not difficult at all Not difficult at all Somewhat difficult Not difficult at all documented in this encounter* Migel Browning PA-C - 10/11/2019 9:41 AM EST [facility] Progress Note Patient Name: Juana Handy Date of Service: : 1965 Impression: Juana Handy is a 54 y.o. year old female with degenerative changes of the cervical and lumbar spine with cervical and lumbar spine pain with radiculopathy in the setting of diabetic neuropathy and fibromyalgia. Plan: - Recommend physical therapy for cervical, thoracic, and lumbar spine pain - Will consider MRI cervical and lumbar spine if no relief of symptoms with PT - Will also consider EMG to identify if there is a neuropathic component to the patient's pain - Follow-up in 6-8 weeks upon completion of therapy - Nursing notes reviewed Migel Browning, , [facility], [facility] Neurosurgery Office: Chief Complaint: Consult and Neck Pain (Pain starts in the upper neck goes down into shoulders. It hurts to pick stuff up and hold it. Sometimes patient states she feels like she needs a neck brace to make her neck more stable.) HPI: Juana Handy is a 54 y.o. year old female with cervical pain with radiculopathy and lumbar pain with radiculopathy, who presents for initial consult (Marianela Fowler CNP). History is obtained from the patient and chart review. Neck Pain: The patient reports that she has had neck pain for the last 3 months. Prior to 3 months ago, she had a chronic, mild neck pain. Over the last 3 months, the pain has progressed and become severe. She states that over the last 2 months it began to radiate to her bilateral shoulders and arms. Specifically, it radiates to the lateral aspect of her upper arm, lateral aspect of her forearm and into digits 1 and 2 of her bilateral arms. She reports that the pain is usually described as a dull pain, but occasionally she experiences sharp stabbing pains. She does report decreased range of motion to her bilateral upper extremities due to the severe pain. Pain seems to be worse with pronation and supination of the bilateral arms. Nothing seems to make it better. She has attempted meloxicam and gabapentin with temporary but inferior results. She does state that heat and massage seem to improve the pain. She admits to mild tremors to her bilateral hands. She denies weakness, but admits to numbnessto digits 1-5 of her bilateral upper extremities. Low Back Pain: The patient also notes that she has had chronic low back pain status post 2 lumbar surgeries. She states that she has had a lumbar discectomy and subsequently had a lumbar fusion. She notes that the pain has been present for decades. 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 She notes that she has been told in the past that she has a lumbar cyst at L3. Prior to the discectomy, her back pain was localized to the low back and radiated to the bilateral lower extremities (left greater than right). The discectomy seem to improve the symptoms, however, they returned. Now, the pain continues to radiate to the left lower extremity. She states that it is typically at a 7 out of 10, but it worsens to 10 out of 10 with activity. She describes the pain as a stabbing shooting pain and notes that her right toes feel like a knife stabbing them. It encompasses her entire left lower extremity. She is now required to ambulate with a cane. Past medical history is pertinent for fibromyalgia, diabetic neuropathy (bilateral lower extremities, right greater than left, and bilateral upper extremities), diabetes, hyperlipidemia, hypertension, degenerative disc disease, and previous report of lumbar and cervical stenosis. Past surgical history is pertinent for bilateral left breast biopsies, bilateral cataract removal, 2 previous back surgeries, D&C, and colonoscopy. She denies previous adverse reactions to anesthesia. Social history is pertinent for no smoking history, no alcohol use, and no illicit drug use. The patient does report that she takes 81 mg of aspirin daily for heart protection. She denies family history of bleeding and clotting disorders, though her maternal grandmother is documented to have had a stroke. Review of Systems: Review of Systems Constitutional: Negative for chills, fatigue and fever. HENT: Positive for dental problem. Negative for congestion, hearing loss, rhinorrhea and sore throat. Eyes: Negative for pain and visual disturbance. Respiratory: Positive for apnea. Negative for cough and shortness of breath. Cardiovascular: Negative for chest pain and leg swelling. Gastrointestinal: Negative for abdominal pain, constipation, diarrhea, nausea and vomiting. Endocrine: Negative. Genitourinary: Negative for decreased urine volume, dysuria, hematuria and urgency. Musculoskeletal: Positive for arthralgias, back pain, myalgias, neck pain and neck stiffness. Negative for gait problem. Skin: Negative for rash and wound. Allergic/Immunologic: Negative. Neurological: Positive for numbness. Negative for dizziness, weakness and headaches. Hematological: Negative for adenopathy. Bruises/bleeds easily. Psychiatric/Behavioral: Negative for dysphoric mood. The patient is not nervous/anxious. Physical Examination: PACU Vitals 10/10/19 1404 BP: (!) 154/90 Pulse: 61 SpO2: 97% PainSc: 9 PainLoc: Neck General: Overweight, well-appearing 54 y.o. female, in NAD HENT: Nares patent with no drainage, hearing grossly intact bilaterally Eyes: PERRLA, 5-3mm bilaterally Neuro: Awake, alert, and oriented x 3; face symmetric, speech fluent Neck: Supple, full lateral rotation; + trapezial tenderness bilaterally Chest: Chest rise symmetric, respirations non-labored Cardiac: No pedal edema, no posterior calf erythema or tenderness Abdomen: soft, non-tender, non-distended Back: + diffuse cervical, thoracic, and lumbar spine tenderness; + paraspinal tenderness diffusely Skin: Warm and dry; multiple small open wounds to bilateral arms and face MSK: Brachioradialis and patellar tendon reflexes 1+ bilaterally Muscle Group Right Left Biceps 5 5 Triceps 5 5 Deltoid 5 5 Publication Specialist 5 5 Hip Flexion 5 5 Knee Extension 5 5 Knee Flexion 5 5 Dorsiflexion 5 5 Plantar Flexion 5 5 Sensation intact to light touch to bilateral upper and lower extremities with hyperesthesias to theright foot. Ambulates with cane with antalgic gait. Radiologic/Laboratory Studies Reviewed: The following studies have been reviewed on a computerized device and my interpretation is as follows: XR Cervical Spine Independent review reveals degenerative disc disease Radiologic interpretation is as follows: 1. No acute osseous injury. 2. Straightening of the cervical lordosis due to positioning versus muscle spasm. 3. Mild degenerative changes at C4-C5 and C5-C6. XR Lumbar Spine Independent review reveals previous L4-5 fusion with suggestion of slight amount of foraminal stenosis. Also seen is some degenerative disc disease at L2-3. Radiologic interpretation is as follows: 1. No acute fractures or subluxations. 2. No hardware associated complications. 3. Stable degenerative changes. CT Lumbar Spine There are no acute thoracic or lumbar fractures. Alignment is normal post L4-L5 fusion with laminectomy. There is mild disc narrowing throughout the thoracic spine with scattered disc osteophyte complexes. No neural foraminal narrowing. Mild central canal stenosis at T6-T7. There is mild central canal stenosis at there is focal moderate to severe disc narrowing at L2-L3. Mild disc narrowing in the lower lumbar levels with prominent disc bulges from L2-L3 through L4-L5. There is mild neural foraminal narrowing secondary to the bulges at the affected levels. The aorta appears grossly normal. There is no visualized adenopathy. Home Medications: Prior to Admission medications Medication Sig Start Date End Date Taking? Authorizing Provider Alcohol Prep Pads PadM Use as directed 4x daily. DX code E11.65 . 08/22/19 Yes Farhda Palmer PA-C ammonium lactate (LAC-HYDRIN) 12 % lotion Apply topically 2 (two) times a day as needed for dry skin . 11/04/18 Yes Marianela Fowler CNP aspirin 81 MG EC tablet Take 81 mg by mouth daily. Yes Historical Provider, atorvastatin (LIPITOR) 40 MG tablet Take 1 (one) tablet (40 mg total) by mouth at bedtime . 11/04/18Yes Marianela Fowler CNP blood-glucose meter (TRUE METRIX GLUCOSE METER) Misc Use to check BG 3x daily. DX code E11.65 NeedsTrue Metrix Meter . 02/25/19 Yes Naomi Reece MD DULoxetine (CYMBALTA) 60 MG capsule Take 1 (one) capsule (60 mg total) by mouth daily . 06/16/19 YesMarianela Fowler CNP gabapentin (NEURONTIN) 600 MG tablet Take 1 (one) tablet (600 mg total) by mouth 3 (three) times a day . 09/16/19 Yes Marianela Fowler CNP glimepiride (AMARYL) 2 MG tablet Take 1 tablet PO BID . 09/13/19 Yes Marianela Fowler CNP insulin glargine (Basaglar KwikPen U-100 Insulin) 100 unit/mL (3 mL) InPn Use nightly as directed, approx 50 units . 08/22/19 Yes Farhad Palmer PA-C insulin lispro (Admelog U-100 Insulin lispro) 100 unit/mL injection Take three times daily before meals, approx 60 units daily . 08/22/19 Yes Farhad Palmer PA-C insulin syringe-needle U-100 (Sure Comfort Insulin Syringe) 0.3 mL 31 gauge x 5/16" Syrg Use as directed 4 times daily, Dx E11.65 . 08/22/19 Yes Farhad Palmer PA-C lancets 33 gauge Misc USE TO TEST FOUR TIMES DAILY . 09/13/19 Yes Marianela Fowler CNP liraglutide (Victoza 2-Puma) 0.6 mg/0.1 mL (18 mg/3 mL) Pen Inject 1.2 mg under the skin daily . 08/12/19 Yes Farhad Palmer PA-C lisinopril (PRINIVIL,ZESTRIL) 20 MG tablet Take 1 (one) tablet (20 mg total) by mouth daily . 08/24/19 Yes Marianela Fowler CNP meloxicam (MOBIC) 15 MG tablet Take 1 (one) tablet (15 mg total) by mouth daily . 11/04/18 Yes Nolan Fowler CNP metoprolol tartrate (LOPRESSOR) 25 MG tablet Take 1 (one) tablet (25 mg total) by mouth 2 (two) times a day . 11/04/18 Yes Marianela Fowler CNP pantoprazole (PROTONIX) 40 MG tablet Take 1 (one) tablet (40 mg total) by mouth daily . 11/04/18 YesMarianela Fowler CNP pen needle, diabetic 31 gauge x 5/16" Ndle Use as directed for insulin adm. Insulin and Victoza . 08/22/19 Yes Farhad Palmer PA-C True Metrix Glucose Test Strip strips To test three times a day. DX code E11.65 . 08/22/19 Yes Farhad Palmer PA-C Past Medical History: Past Medical History: Diagnosis Date Back pain L2,3,4,5 Chronic bronchitis (HCC) DDD (degenerative disc disease), lumbar Diabetes mellitus, type 2 (HCC) Diverticulitis 2001 Fibromyalgia, primary Hemorrhage 1991 surgery Herniated lumbar intervertebral disc L4-5 Hyperlipidemia Hypertension Neuropathy 10/17/91 Sciatica Past Surgical History: Past Surgical History: Procedure Laterality Date BONE MARROW BIOPSY W/ ASPIRATION 06/04/2018 ........Dr. Pat BREAST BIOPSY Left 10/12/2017 Stereo-proliferative fibrocystic changes and associated microcalcifications, focal pseudoangiomatous stromal hyperplasia CATARACT EXTRACTION, BILATERAL COLONOSCOPY 37 years old..Diverticulitis COLONOSCOPY 05/07/2017 diverticulosis, signle polyp in sigmoid, internal hermorrhoids...Dimitris DILATION AND CURETTAGE OF UTERUS for utreine bleeding LUMBAR FUSION 10/19/2017 Family History: Family History Problem Relation Age of Onset Lung cancer Father Heart failure Father Heart disease Father Diabetes Brother Heart disease Brother Bone cancer Maternal Grandmother Heart failure Maternal Grandmother Stroke Maternal Grandmother Cancer Half-Sister unknown cancer (mother in common) Heart disease Sister Diabetes Sister Mental illness Daughter Cancer Paternal Grandmother Social History: Social History Tobacco Use Smoking status: Never Smoker Smokeless tobacco: Never Used Substance Use Topics Alcohol use: No Drug use: No documented in this encounter* Kary Lennon CNP - 11/10/2018 2:01 PM EST POST OP NOTE [facility] [address] ([address]) [facility] [address] [facility] [id number] Procedure date:05/10/2018 Juana Handy is a 53 y.o. female seen in the office today for follow up 6 months post op following L4-5 lumbar fusion with hardware. Incision:healing well, no significant drainage, no dehiscence, no significant erythemastaplesremoved. Pain:moderate pain with movement. She has not even started therapy however last order was on July. No signs of obvious infection. Neurovascular exam is grossly normal distally. Capillary refill <3 sec. No skin breakdown. Range of motion and strength satisfactory and 4/5. . Imaging: X-Rays: Office films, 2 Views lumbar hardware in acceptable position at L4 and L5 level. Restrictions;full duty Plan @Return in about 1 year (around 11/10/2019). Kary Lennon CNP 11/10/2018 in this encounter* Renee Perez, PT - 12/17/2018 3:15 PM EDT [facility] DAILY TREATMENT NOTE Today's Date 12/17/2018 Patient Name: Juana Handy Date of : 1965 Current Visit #: 5 Authorized Visits: 30 Case Name: s/p lumbar spinal stenosis History: Pre-Treatment Pain Scale: 9 Symptoms: The patient states she feels no change in back pain. She is moving a house. She is doing some unpacking these days. Functional Diagnosis: SNOMED CT(R) 1. H/O spinal fusion HISTORY OF SPINAL FUSION Clinical Information: Subjective: the patient has 9/10 pain level. She hurt her knee and had sometimes she has popping atknee. She went to the Dr and she was told that she has degenerative cervical disc. Objective; continued with the core stability exercises to increase stability of back. Treatments: Physical Therapy Exercise Log - 12/10/18 1609 OTHER Notes 4:02 4:45 Therapeutic Exercise (31097) Intervention Abdominal bracing 10" X10 X2 Parameters Abdominal bracing marching 10" X10 Intervention SKTC 10" X10 Parameters hamstring stretching 10" X3 Intervention LTR 5" X10 Parameters Bridging (static glutei) 15 Intervention Clamshells 10 each side supine, 10 each sidelying Parameters Pressing ball 10" x15 Intervention Hip abduction GTband 15 Parameters LTR 5" X5 each Modalities Modalities Hot packs Parameters 10 PT Treatment Times Therex Total Time 33 Modalities Total Time 10 Direct Treatment Time 43 Goals: Physical Therapy Ortho Goals: The patient will safely, correctly and independently demonstrate the ability to perform a progressive HEP to achieve maximal rehabilitation potential and prevent this condition from recurring. The patient will demonstrate increased strength of Hip 5/5 to increase participation in Household activities with 0-3/10 pain. 6 weeks The patient will demonstrate increased core stabilisation in order to be able to walk for 20 mins with no pain. 6 weeks The patient will demonstrate pain level 0-3/10 at back inorder to participate in functional activities frequently. 6 weeks Patient Education: Quality of movement with patient demonstrated understanding. Post-Treatment Pain Scale: 7 Assessment: Patient had an expected response to treatment. Skilled Intervention demonstrated by modifications of treatment per exercise log including increased rate and safety interventions per exercise log. Progress towards goals as expected. Plan for Next Visit: Treatment Visit with focus on core stability, back and hamstring stretching Renee Perez PT STATE LICENSE, [id number] in this encounter* Patricia Abdi RD - 08/01/2019 12:02 PM EST Nutrition note: This is RD's first attempt to contact pt for follow up. Patient identification verified by at leasttwo identifiers prior to case management which included Full Name and Phone number. Patient agreed to exchange information. Pt stated it was not a good time to talk. RD encouraged pt to call RD back at her convenience. Pt has RD contact information. Patricia Abdi RD, LD documented in this encounter* Kristie Vera, RN - 03/23/2019 11:24 AM EDT Chronic Care outreach to confirm receipt of medication. LM Lab Results Component Value Date HGBA1C 8.1 (A) 12/29/2018 HGBA1C 9.9 (A) 07/20/2018 HGBA1C 10.3 (A) 02/24/2018 Lab Results Component Value Date CREATININE 0.87 08/23/2018 Health Maintenance Due Topic Date Due HEPATITIS C SCREENING 1965 Wellness Visit 1968 Ophthalmology Exam 1975 Zoster Vaccines (1 of 2) 2015 documented in this encounter* Migel Browning PA-C - 06/26/2020 3:37 PM EDT [facility] Progress Note Patient Name: Juana Handy Date of Service: : 1965 Impression: Juana Handy is a 55 y.o. year old female with cervical degenerative disc diseasecausing central and foraminal stenosis at C4-5 and C5-6 who is now status post C4-5 and C5-6 ACDF. Plan: - Provided refill of Percocet - OARRS reviewed, last narcotic script filled 06/11/2020 - Recommend continuation of home physical therapy - Will plan for follow-up in 4 weeks - Advised patient to continue wearing collar when OOB - Nursing notes reviewed Migel Browning, MS, MPAP, PADavid [facility] Office: Chief Complaint: Post-op (Stitches removal) HPI: Juana Handy is a 55 y.o. year old female with cervical degenerative disc disease causing central and foraminal stenosis at C4-5 and C5-6 who is now status post C4-5 and C5-6 ACDF, who presentsfor follow-up evaluation. History is obtained from the patient and chart review. The patient reports that she has had significant trapezial pain and midline posterior neck pain. She states that she gets occasional pains distal to her elbow as well as some numbness and tingling. She states that she has been wearing her collar at all times and is hopeful to decrease its use. She states that she hasnot had any incisional concerns. She denies other issues at this time. Review of Systems: Review of Systems Physical Examination: PACU Vitals 06/26/20 1355 BP: (!) 164/76 Pulse: 82 Resp: 16 SpO2: 97% PainSc: 6 PainLoc: Neck General: Healthy, well-appearing 55 y.o. female, in NAD HENT: Nares patent with no drainage, hearing grossly intact to voice Eyes: PERRLA, 4mm bilaterally Neuro: Awake, alert; face symmetric, speech fluent Neck: Supple, full lateral rotation; positive for posterior midline cervical spine tenderness; positive for bilateral trapezius trigger points Chest: Chest rise symmetric, respirations non-labored Skin: Warm and dry; anterior cervical incision healing well, steri strips removed MSK: Muscle Group Right Left Biceps 5 5 Triceps 5 5 Deltoid 5 5 Publication Specialist 5 5 Sensation intact to light touch to bilateral upper extremities. Ambulates without difficulty. Home Medications: Prior to Admission medications Medication Sig Start Date End Date Taking? Authorizing Provider Alcohol Prep Pads PadM Use as directed 4x daily. DX code E11.65 . 08/22/19 Yes Farhad Palmer PA-C aspirin 81 MG EC tablet Take 81 mg by mouth daily. Yes Historical Provider, atorvastatin (LIPITOR) 40 MG tablet Take 1 (one) tablet (40 mg total) by mouth at bedtime . 12/12/19Yes Marianela Fowler CNP blood pressure monitor (Blood Pressure Kit) Kit To monitor blood pressure twice daily . 02/27/20 YesMarianela Fowler CNP blood-glucose meter (TRUE METRIX GLUCOSE METER) [facility] to check BG 3x daily. DX code E11.65 NeedsTrue Metrix Meter . 02/25/19 Yes Naomi Reece MD busPIRone (BUSPAR) 10 MG tablet Take 10 mg by mouth 3 (three) times a day. 06/12/20 Yes Jose Gallagher MD DULoxetine (CYMBALTA) 60 MG capsule Take 1 (one) capsule (60 mg total) by mouth daily . 06/16/19 YesMarianela Fowler CNP gabapentin (NEURONTIN) 600 MG tablet Take 1 (one) tablet (600 mg total) by mouth 3 (three) times a day . 06/14/20 Yes Marianela Fowler CNP glimepiride (AMARYL) 2 MG tablet Take 1 tablet PO BID . 09/13/19 Yes Marianela Fowler CNP insulin aspart U-100 (NovoLOG U-100 Insulin aspart) 100 unit/mL injection Inject 26 (twenty six) Units under the skin 3 (three) times a day before meals . 06/14/20 06/14/21 Yes Babak Cano CNP insulin lispro (HumaLOG) 100 unit/mL injection Inject 26 (twenty six) Units under the skin 3 (three) times a day before meals . 04/09/20 Yes Naomi Reece MD insulin syringe-needle U-100 (Sure Comfort Insulin Syringe) 0.3 mL 31 gauge x 5/16" Syrg Use as directed 4 times daily, Dx E11.65 . 08/22/19 Yes Farhad Palmer PA-C lancets 33 gauge [facility] USE TO TEST FOUR TIMES DAILY - TruePlus Ultra thing 30g . 02/09/20 Yes Marianela Fowler CNP lisinopril (PRINIVIL,ZESTRIL) 20 MG tablet Take 1 (one) tablet (20 mg total) by mouth daily . 08/24/19 Yes Marianela Fowler CNP metoclopramide (REGLAN) 10 MG tablet TAKE ONE TABLET BY MOUTH FOUR TIMES DAILY WITH MEALS AND EVERYNIGHT 03/08/20 Yes Marianela Fowler CNP metoprolol tartrate (LOPRESSOR) 25 MG tablet Take 1 (one) tablet (25 mg total) by mouth 2 (two) times a day . 01/17/20 Yes Marianela Fowler CNP nystatin (MYCOSTATIN) ointment Apply topically 2 (two) times a day . 02/29/20 02/28/21 Yes Marianela Fowler CNP pantoprazole (PROTONIX) 40 MG tablet TAKE ONE TABLET BY MOUTH ONCE DAILY 11/16/19 Yes Marianela Fowler CNP pen needle, diabetic 31 gauge x 5/16" Ndle Use as directed for insulin adm. Insulin and Victoza . 05/10/20 Yes Babak Cano CNP True Metrix Glucose Test Strip strips To test three times a day. DX code E11.65 . 08/22/19 Yes Farhad Palmer PA-C Victoza 2-Puma 0.6 mg/0.1 mL (18 mg/3 mL) Pen INJECT 1.2 MG SUBCUTANEOUSLY DAILY 01/09/20 Yes Farhad Palmer PA-C insulin glargine (Basaglar KwikPen U-100 Insulin) 100 unit/mL (3 mL) InPn Use nightly as directed, approx 50 units . 04/12/20 Babak Cano CNP oxyCODONE-acetaminophen (PERCOCET) 5-325 mg per tablet Take 1 (one) tablet by mouth every 6 (six) hours as needed for pain (Days supply per fill: 7) . 06/26/20 07/03/20 Migel Browning PA-C Past Medical History: Past Medical History: Diagnosis Date Back pain L2,3,4,5 Chronic bronchitis (HCC) DDD (degenerative disc disease), lumbar Diabetes mellitus, type 2 (HCC) Diverticulitis 2001 Fibromyalgia, primary Hemorrhage 1991 surgery Herniated lumbar intervertebral disc L4-5 Hyperlipidemia Hypertension Neuropathy 10/17/91 Sciatica Sleep apnea Past Surgical History: Past Surgical History: Procedure Laterality Date BONE MARROW BIOPSY W/ ASPIRATION 06/04/2018 ........Dr. Pat BREAST BIOPSY Left 10/12/2017 Stereo-proliferative fibrocystic changes and associated microcalcifications, focal pseudoangiomatous stromal hyperplasia CATARACT EXTRACTION, BILATERAL COLONOSCOPY 37 years old..Diverticulitis COLONOSCOPY 05/07/2017 diverticulosis, signle polyp in sigmoid, internal hermorrhoids...Dimitris DILATION AND CURETTAGE OF UTERUS for utreine bleeding LAMINECTOMY DISC ANTERIOR CERVICAL W/ FUSION MULTI LEVEL Bilateral 06/07/2020 Procedure: Anterior Cervical Discectomy and Fusion, C4-5 and C5-6; Surgeon: Jose Gallagher MD; Location: Main OR; Service: Neurological LUMBAR FUSION 10/19/2017 Family History: Family History Problem Relation Age of Onset Lung cancer Father Heart failure Father Heart disease Father Diabetes Brother Heart disease Brother Bone cancer Maternal Grandmother Heart failure Maternal Grandmother Stroke Maternal Grandmother Cancer Half-Sister unknown cancer (mother in common) Heart disease Sister Diabetes Sister Mental illness Daughter Cancer Paternal Grandmother Social History: Social History Tobacco Use Smoking status: Never Smoker Smokeless tobacco: Never Used Substance Use Topics Alcohol use: No Drug use: No documented in this encounter* Kristie Vera RN - 02/17/2019 9:00 AM EDT Pt. [facility]ills Rx.. [facility] [address]. Phoned [facility], [facility], and [facility] [address] To clarify current Rx. And refills. [facility] med[facility] [address]. Victoza 0.6/0.1 pen currently refilling. Lipitor 40 mg po ready to fruit picker Admelog formulary replacing Lispro 100 ml/ml 15 units TID Syringes 33g lancets filled 02/06/19 Rx. Filled for 30 day supply Meloxicam filled 01/25/19 Lisinopril filled 01/25/19 Amaryl filled 01/25/19 Neurontin filled 01/25/19 Protonix filled 01/25/19 Cymbalta filled 01/25/19 Lopressor filled 01/25/19 [facility] pharmacy phoned: True Metrix test strips on hold 10/26/18. Glucometer filled 07/09/1811/02 transferred all prescriptions to [facility]. Pt. Phoned - left message for clarification documented in this encounter* Brando Hurley PTA - 01/05/2019 2:30 PM EDT [facility] OUTPATIENT REHABILITATION DAILY TREATMENT NOTE Today's Date 01/05/2019 Patient Name: Juana Handy Date of : 1965 Current Visit #: 9 Authorized Visits: 30 Case Name: s/p lumbar spinal stenosis History: Pre-Treatment Pain Scale: 8 Symptoms: stabilized Functional Diagnosis: SNOMED CT(R) 1. H/O spinal fusion HISTORY OF SPINAL FUSION Clinical Information: Subjective: Pt comes in emotional today crying about struggling with the constant pain. Pt states has improvement with pain after session but pain comes back the next day. Pt states LBP and R LE is a8/10 today. Objective Pt introduced and educated on nustep benefits with pt agreement pt attempted nustep L2 for 3'. Pt cont with therex per flow sheet with increased reps this visit. Treatments: Physical Therapy Exercise Log - 01/05/19 1426 OTHER Precautions/Contraindications Hypoasthesia L3,L4,L5, S1 Notes PT: renee visit: 05/26 Therapeutic Exercise (51175) Intervention Abdominal bracing 10" 2x10 Parameters Abdominal bracing marching 2x10 Intervention SKTC 10" X 5 with strap Intervention LTR 10 " X 5 Parameters Bridging 3" hold x20 Parameters hip ADD with bolster 5" x20 Parameters SLR flex/abd x10 Intervention Nustep L2 3 min ( knee pain) Goals: Physical Therapy Ortho Goals: The patient will safely, correctly and independently demonstrate the ability to perform a progressive HEP to achieve maximal rehabilitation potential and prevent this condition from recurring. The patient will demonstrate increased strength of Hip 5/5 to increase participation in Household activities with 0-3/10 pain. 6 weeks The patient will demonstrate increased core stabilisation in order to be able to walk for 20 mins with no pain. 6 weeks The patient will demonstrate pain level 0-3/10 at back inorder to participate in functional activities frequently. 6 weeks Patient Education: Quality of movement with patient demonstrated understanding and verbalized understanding. Post-Treatment Pain Scale: 8 Assessment: Patient had an expected response to treatment. Pt had increased L knee pain with nustepand had to stop exercise. Pt was unable to advance SLR flex this visit and could only perform 10 reps. Good tolerance to increased reps this visit. Ended with HP to decrease pain and sxs per pt wishes. Skilled Intervention demonstrated by modifications of treatment per exercise log including increased load and safety interventions per exercise log. Progress towards goals as expected. Plan for Next Visit: Treatment Visit with focus on Cont POC Brando Hurley PTA STATE LICENSE, [id number] documented in this encounter* Marianela Fowler, CORPORATE CONSULTANT - 08/22/2019 2:20 PM EST OFFICE VISIT PROGRESS NOTE Juana Handy is a 54 y.o. female with a past medical history of Patient Active Problem List Diagnosis Lumbar degenerative disc disease Herniated intervertebral disc of lumbar spine Spinal stenosis of lumbar region without neurogenic claudication Uncontrolled type 2 diabetes mellitus with hyperglycemia, with long-term current use of insulin ([facility]) Neuropathy involving both lower extremities Type 2 diabetes mellitus without complication, with long-term current use of insulin ([facility]) H/O spinal fusion Hypertension Hyperlipidemia Fibromyalgia Class 3 severe obesity with serious comorbidity and body mass index (BMI) of 45.0 to 49.9 in adult (HCC) Degenerative disc disease, cervical Gastroesophageal reflux disease Chronic neck pain who presents to the office today for a well adult exam, however, the patient has several concerns that she wants to address today. I have spoken with the patient, and she wants her concerns to be addressed today and she will return to the office for a well visit at a different time. Fibromyalgia: chronic problem, Patient states that her symptoms which include muscle and joint soreness are tolerated better with gabapentin, patient denies use of alcohol or any illicit drugs, patient denies falls, and any problems completing ADLs which include bathing, and cooking meals. Medications are kept safe with the patient, however, she resides with several different people Neck Pain This is a chronic problem. The current episode started more than 1 year ago. The problem occurs constantly. The problem has been waxing and waning. The pain is associated with an unknown factor. The pain is present in the midline. The quality of the pain is described as shooting, burning and aching. The pain is severe. The symptoms are aggravated by twisting and position. The pain is same all thetime. Stiffness is present all day. Associated symptoms include numbness, tingling and weakness. Pertinent negatives include no chest pain, headaches or weight loss. Treatments tried: gabapentin. Thetreatment provided mild relief. Hypertension This is a chronic problem. The current episode started more than 1 year ago. The problem has been waxing and waning since onset. The problem is controlled. Associated symptoms include anxiety, malaise/fatigue and neck pain. Pertinent negatives include no chest pain, headaches, palpitations or shortness of breath. There are no associated agents to hypertension. Risk factors for coronary artery disease include family history, dyslipidemia, obesity, sedentary lifestyle, stress and post-menopausal state. The current treatment provides significant improvement. Compliance problems include psychosocial issues and medication cost. Gastroesophageal Reflux She complains of belching and heartburn. She reports no abdominal pain, no chest pain, no choking, no coughing, no dysphagia, no early satiety, no globus sensation, no hoarse voice, no nausea, no sore throat, no stridor, no tooth decay, no water brash or no wheezing. This is a chronic problem. The current episode started more than 1 year ago. The problem occurs occasionally. The problem has been waxing and waning. The heartburn is of mild intensity. The heartburn does not wake her from sleep. The heartburn does not limit her activity. The heartburn doesn't change with position. The symptoms are aggravated by lying down. Pertinent negatives include no anemia, fatigue, melena, muscle weakness, orthopnea or weight loss. Risk factors include obesity, caffeine use and lack of exercise. She hastried a PPI for the symptoms. The treatment provided moderate relief. Health Maintenance Topic Date Due HEPATITIS C SCREENING 1965 Wellness Visit 1968 Ophthalmology Exam 1975 Zoster Vaccines (1 of 2) 2015 URINE MICROALBUMIN 08/23/2019 Mammogram 12/10/2019 A1C 02/03/2020 PAP SMEAR 04/28/2020 DEPRESSION SCREENING (PHQ9) 05/05/2020 FOOT EXAM 08/05/2020 TETANUS EVERY 10 YR 07/11/2021 Colorectal Cancer Screening: Colonoscopy 05/07/2027 SEQUENTIAL INFLUENZA VACCINE Completed The following portions of the patient's history were reviewed and updated as appropriate: allergies, current medications and problem list. Family History Problem Relation Age of Onset Lung cancer Father Heart failure Father Heart disease Father Diabetes Brother Heart disease Brother Bone cancer Maternal Grandmother Heart failure Maternal Grandmother Stroke Maternal Grandmother Cancer Half-Sister unknown cancer (mother in common) Heart disease Sister Diabetes Sister Mental illness Daughter Cancer Paternal Grandmother Social History Socioeconomic History Marital status: Spouse name: Not on file Number of children: Not on file Years of education: Not on file Highest education level: Not on file Occupational History Not on file Social Needs Financial resource strain: Somewhat hard Food insecurity Worry: Sometimes true Inability: Sometimes true Transportation needs Medical: No Non-medical: No Tobacco Use Smoking status: Never Smoker Smokeless tobacco: Never Used Substance and Sexual Activity Alcohol use: No Drug use: No Sexual activity: Not Currently Lifestyle Physical activity Days per week: Not on file Minutes per session: Not on file Stress: Not on file Relationships Social connections Talks on phone: Three times a week Gets together: Once a week Attends religion service: Not on file Active member of club or organization: Not on file Attends meetings of clubs or organizations: Not on file Relationship status: Not on file Other Topics Concern Not on file Social History Narrative Not on file Past Surgical History: Procedure Laterality Date BONE MARROW BIOPSY W/ ASPIRATION 06/04/2018 ........Dr. Pat BREAST BIOPSY Left 10/12/2017 Stereo-proliferative fibrocystic changes and associated microcalcifications, focal pseudoangiomatous stromal hyperplasia CATARACT EXTRACTION, BILATERAL COLONOSCOPY 37 years old..Diverticulitis COLONOSCOPY 05/07/2017 diverticulosis, signle polyp in sigmoid, internal hermorrhoids...Dimitris DILATION AND CURETTAGE OF UTERUS for utreine bleeding LUMBAR FUSION 10/19/2017 Allergies Allergen Reactions Latex Rash Patient's Medications New Prescriptions No medications on file Previous Medications ALCOHOL PREP PADS PADM Use as directed 4x daily. DX code E11.65 . AMMONIUM LACTATE (LAC-HYDRIN) 12 % LOTION Apply topically 2 (two) times a day as needed for dry skin . ASPIRIN 81 MG EC TABLET Take 81 mg by mouth daily. ATORVASTATIN (LIPITOR) 40 MG TABLET Take 1 (one) tablet (40 mg total) by mouth at bedtime . BLOOD-GLUCOSE METER (TRUE METRIX GLUCOSE METER) MISC Use to check BG 3x daily. DX code E11.65 NeedsTrue Metrix Meter . DULOXETINE (CYMBALTA) 60 MG CAPSULE Take 1 (one) capsule (60 mg total) by mouth daily . GLIMEPIRIDE (AMARYL) 2 MG TABLET Take 1 tablet PO BID . INSULIN GLARGINE (BASAGLAR KWIKPEN U-100 INSULIN) 100 UNIT/ML (3 ML) INPN Use nightly as directed, approx 50 units . INSULIN LISPRO (ADMELOG U-100 INSULIN LISPRO) 100 UNIT/ML INJECTION Take three times daily before meals, approx 60 units daily . INSULIN SYRINGE-NEEDLE U-100 (SURE COMFORT INSULIN SYRINGE) 0.3 ML 31 GAUGE X 5/16" SYRG Use as directed 4 times daily, Dx E11.65 . LANCETS 33 GAUGE MISC USE TO TEST FOUR TIMES DAILY . LIRAGLUTIDE (VICTOZA 2-PUMA) 0.6 MG/0.1 ML (18 MG/3 ML) PEN Inject 1.2 mg under the skin daily . MELOXICAM (MOBIC) 15 MG TABLET Take 1 (one) tablet (15 mg total) by mouth daily . METOPROLOL TARTRATE (LOPRESSOR) 25 MG TABLET Take 1 (one) tablet (25 mg total) by mouth 2 (two) times a day . PANTOPRAZOLE (PROTONIX) 40 MG TABLET Take 1 (one) tablet (40 mg total) by mouth daily . PEN NEEDLE, DIABETIC 31 GAUGE X 5/16" NDLE Use as directed for insulin adm. Insulin and Victoza . TRUE METRIX GLUCOSE TEST STRIP STRIPS To test three times a day. DX code E11.65 . Modified Medications Modified Medication Previous Medication GABAPENTIN (NEURONTIN) 600 MG TABLET gabapentin (NEURONTIN) 600 MG tablet Take 1 (one) tablet (600 mg total) by mouth 3 (three) times a day . Take 1 (one) tablet (600 mg total) by mouth 3 (three) times a day . LISINOPRIL (PRINIVIL,ZESTRIL) 20 MG TABLET lisinopril (PRINIVIL,ZESTRIL) 20 MG tablet Take 1 (one) tablet (20 mg total) by mouth daily . Take 1 (one) tablet (20 mg total) by mouth daily. Discontinued Medications CHLORHEXIDINE (PERIDEX) 0.12 % SOLUTION Apply 15 mL to the mouth or throat 2 (two) times a day for 14 days . Review of Systems Review of Systems Constitutional: Positive for malaise/fatigue. Negative for activity change, appetite change, fatigue and weight loss. HENT: Negative for hoarse voice and sore throat. Respiratory: Negative for cough, choking, shortness of breath and wheezing. Cardiovascular: Negative for chest pain and palpitations. Gastrointestinal: Positive for heartburn. Negative for abdominal pain, dysphagia, melena and nausea. Musculoskeletal: Positive for back pain, gait problem and neck pain. Negative for muscle weakness. Neurological: Positive for tingling, weakness and numbness. Negative for dizziness, facial asymmetry, light-headedness and headaches. Psychiatric/Behavioral: Negative for agitation. The patient is not nervous/anxious. Vitals: 08/22/19 1436 08/22/19 1518 BP: (!) 158/88 133/83 BP Location: Left arm Patient Position: Sitting BP Cuff Size: Adult Pulse: 76 Resp: 16 Temp: 97 F (36.1 C) TempSrc: Temporal SpO2: 97% Weight: 116.1 kg (256 lb) Body mass index is 43.94 kg/m . Physical Exam Physical Exam Vitals signs reviewed. Constitutional: Appearance: She is well-developed. HENT: Head: Normocephalic. Right Ear: External ear normal. Left Ear: External ear normal. Cardiovascular: Rate and Rhythm: Normal rate and regular rhythm. Heart sounds: Normal heart sounds. Pulmonary: Effort: Pulmonary effort is normal. Breath sounds: Normal breath sounds. Musculoskeletal: Cervical back: She exhibits decreased range of motion, tenderness and pain. Lumbar back: She exhibits decreased range of motion, tenderness and pain. Comments: Patient ambulates with assistance of cane. Skin: General: Skin is warm and dry. Comments: Multiple scabs and scars scattered to patient's arms Neurological: Mental Status: She is alert and oriented to person, place, and time. Psychiatric: Speech: Speech normal. Behavior: Behavior normal. Thought Content: Thought content normal. Judgment: Judgment normal. OARRS/NARxCHECK Report Received and Assessed: 08/22/19 Date controlled substance agreement signed: 08/22/19 Date of last drug screen: 08/22/19 The 10-year ASCVD risk score (Talat SOSA Jr., et al., 2013) is: 4.6% Values used to calculate the score: Age: 54 years Sex: Female Is Non- : No Diabetic: Yes Tobacco smoker: No Systolic Blood Pressure: 133 mmHg Is BP treated: Yes HDL Cholesterol: 40 mg/dL Total Cholesterol: 138 mg/dL Assessment/Plan Problem List Items Addressed This Visit Digestive Gastroesophageal reflux disease Stable, continue medication as ordered. Cardiovascular and Mediastinum Hypertension Stable, continue meds, increase activity as can tolerate, limit salt, and watch diet. Continue to monitor blood pressure at home as instructed. Bring blood pressure log and cuff to your next visit. Relevant Medications lisinopril (PRINIVIL,ZESTRIL) 20 MG tablet Other Fibromyalgia Drug screen and urine drug screen completed today. I have ordered a 90 day supply of your gabapentin. This is a controlled substance which is regulated by the Federal government. New laws require you to be seen in the office every 90 days to continuethis medication. You will also be required to do yearly urine drug test. Continue current medications, Controlled Substance Agreement is on file and an OARRS report was checked today, you were given a 3 months supply, follow-up in the office as scheduled. I discussed the side potential side effects of gabapentin to include mental slowing, confusion, sedation, fatigue, among others. I suggested that she not make important decisions while taking this medicine or operate a motor vehicle or heavy machinery while taking this medication. The medicine can potentiate the effects of alcohol, therefore alcohol should be avoided. This medicine is potentiallyaddicting and habit-forming and should be taken only as directed. Relevant Medications gabapentin (NEURONTIN) 600 MG tablet Chronic neck pain - Primary Today I replaced referral to specialty for evaluation/treatment. Their office will contact you to schedule an appointment. If you do not hear from their office in 5-7 business days please contact theoffice. Relevant Orders Ambulatory referral to Neurosurgery Goals Patient Stated Good Nutrition (pt-stated) Good Nutrition: Make healthier food choices Reduce portion size Follow meal plan Individualized goal: Try carbohydrate counting with a goal of 45 grams of carbohydrate at 3 meals a day, 2 days a week by RD follow up in about 2 weeks. Other Reducing Risks Patient SPECIFICALLY identifies the Self Care Behavior Goal of Reducing Risks. Patient will MEASURE progress by: monitoring glucose, engagement in self care foot exam;; A1C <7; BS monitoring; Nutrition, Acitivity) Patient's goal will be ACHIEVED by implementing Resources provided: Handouts, electronic references). Barriers will be: Pt. Engagement, insurance barriers addressed by outreach and education Goal is REALISTIC as evidenced by Confidence level of: unsure 1 month to initiate TIMEFRAME for the goal is: 3 months For any new medications prescribed today, patient was educated about indications for the medication, how to take the medication and potential side effects of the medications. documented in this encounter* Nancy Shanks MD - 12/14/2018 2:42 PM EDT [facility] PATIENT: Juana Handy DATE / TIME: 12/14/18 2:43 PM POS: Office AGE: 53 y.o. : 1965 RACE: [1] SEX: female PCP: Marianela Fowler CNP REFERRAL: No ref. provider found TOS: SUBJECTIVE: Patient denies noticing any breast masses, skin changes, dimpling, or nipple discharge.C/o foot pain/neuropathy. States she feels chest discomfort but that she routinely does when her BPis high. She states she didn't taker her BP medication this morning because she was in a hurry. OBJECTIVE: PACU Vitals 12/14/18 1428 BP: (!) 156/90 Pulse: 78 Temp: 98.5 F (36.9 C) SpO2: 95% NAD A&O RRR CTA BL Right breast: no masses, no axillary LA, no nipple discharge Left breast: no masses, no axillary LA, no nipple discharge IMAGING/LABORATORY/PATHOLOGY: mammogram 12/09/18: images and findings reviewed FINDINGS: The breasts are heterogeneously dense, which may obscure small masses. Parenchymal asymmetries are stable. No developing asymmetry. Biopsy clip is demonstrated within the upper-outer quadrant of the left breast at posterior depth. No increased regional calcifications. Similar appearance of rounded c luster of microcalcifications involving the superior left breast at mid depth, only well seen on the MLO projections. Cluster of microcalcifications is overall similar in size, quantity and appearance compared to 03/19/2017. There are no suspicious findings. There area scattered benign-appearing calcifications. IMPRESSION: No mammographic evidence for malignancy. BIRADS: BIRADS - CATEGORY 2 Benign, no evidence of malignancy. Normal interval followup is recommended in 12 months. ASSESSMENT: The patient is a 52 yo F with fibrocystic breast changes (with focal PASH) PLAN: Return to yearly screening. Follow up with PCP. Follow up here as needed. in this encounter* Carolee Aguirre LPN - 08/09/2019 9:06 AM EST The patient was seen at the ED on 08/08/2019. The patient has an appointment scheduled with Marianela Fowler CNP on 08/22/2019. documented in this encounter* Marianela Fowler CNP - 12/15/2020 10:31 PM EDT OFFICE VISIT PROGRESS NOTE Juana Handy is a 55 y.o. female with a past medical history of Patient Active Problem List Diagnosis Lumbar degenerative disc disease Herniated intervertebral disc of lumbar spine Spinal stenosis of lumbar region without neurogenic claudication Uncontrolled type 2 diabetes mellitus with hyperglycemia, with long-term current use of insulin (HCC) Neuropathy involving both lower extremities Type 2 diabetes mellitus without complication, with long-term current use of insulin (HCC) H/O spinal fusion Hypertension Hyperlipidemia Fibromyalgia Class 3 severe obesity with serious comorbidity and body mass index (BMI) of 45.0 to 49.9 in adult (HCC) Degenerative disc disease, cervical Gastroesophageal reflux disease Chronic neck pain Chronic thoracic spine pain Chronic bilateral low back pain Anxiety and depression Intractable vomiting Anxiety Pulmonary nodule, left Preoperative examination, unspecified S/P cervical spinal fusion Chronic dental pain who presents to the office today for a follow up on chronic conditions. Patient is doing well and denies complaints at this time. Hypertension This is a chronic problem. The current episode started more than 1 year ago. The problem has been waxing and waning since onset. The problem is controlled. Associated symptoms include anxiety and neck pain (chornic ). Pertinent negatives include no chest pain, headaches, malaise/fatigue, palpitations, peripheral edema, PND, shortness of breath or sweats. There are no associated agents to hypertension. Risk factors for coronary artery disease include family history, dyslipidemia, obesity, post-menopausal state, stress, sedentary lifestyle, smoking/tobacco exposure and diabetes mellitus. The current treatment provides significant improvement. Compliance problems include psychosocial issues, exercise and diet. There is no history of chronic renal disease. Hyperlipidemia This is a chronic problem. The current episode started more than 1 year ago. Recent lipid tests were reviewed and are variable. Exacerbating diseases include diabetes and obesity. She has no history of chronic renal disease, hypothyroidism, liver disease or nephrotic syndrome. Pertinent negatives include no chest pain, focal sensory loss, focal weakness, leg pain, myalgias or shortness of breath.Current antihyperlipidemic treatment includes statins. The current treatment provides significant improvement of lipids. Gastroesophageal Reflux She reports no chest pain, no coughing, no early satiety, no heartburn, no sore throat or no tooth decay. This is a chronic problem. The current episode started more than 1 year ago. The problem occurs rarely. The problem has been waxing and waning. The symptoms are aggravated by certain foods, stress and bending. Pertinent negatives include no anemia, fatigue, melena, muscle weakness, orthopnea or weight loss. Risk factors include obesity. She has tried a PPI for the symptoms. The treatment provided significant relief. Fibromyalgia: Chronic problem, moderately controlled with gabapentin. Patient does have chronic pain due to multiple cervical and lumbar surgical procedures. Patient denies use of narcotics or illegal drugs while using this medication. Patient states that this medication does not make her drowsy. Chronic dental pain: ongoing worsening problem, patient cannot afford to have teeth pulled at this time. States that she has several broke and infected teeth Health Maintenance Topic Date Due Wellness Visit Never done Ophthalmology Exam Never done HIV Screening Never done COVID-19 Vaccine (1) Never done Hepatitis C Screening Never done Zoster Vaccines (1 of 2) Never done Pap Smear 04/28/2020 Mammogram 01/26/2021 A1C 04/08/2021 Urine Microalbumin 07/07/2021 Tetanus: Every 10yrs 07/11/2021 Foot Exam 10/09/2021 Colorectal Cancer Screening 05/07/2027 Sequential Influenza Vaccine Completed The following portions of the patient's history were reviewed and updated as appropriate: allergies, current medications and problem list. Family History Problem Relation Age of Onset Lung cancer Father Heart failure Father Heart disease Father Diabetes Brother Heart disease Brother Bone cancer Maternal Grandmother Heart failure Maternal Grandmother Stroke Maternal Grandmother Cancer Half-Sister unknown cancer (mother in common) Heart disease Sister Diabetes Sister Mental illness Daughter Cancer Paternal Grandmother Social History Socioeconomic History Marital status: Spouse name: Not on file Number of children: Not on file Years of education: Not on file Highest education level: Not on file Occupational History Not on file Social Needs Financial resource strain: Somewhat hard Food insecurity Worry: Sometimes true Inability: Sometimes true Transportation needs Medical: No Non-medical: Yes Tobacco Use Smoking status: Never Smoker Smokeless tobacco: Never Used Substance and Sexual Activity Alcohol use: No Drug use: No Sexual activity: Not Currently Lifestyle Physical activity Days per week: Not on file Minutes per session: Not on file Stress: Not on file Relationships Social connections Talks on phone: Three times a week Gets together: Once a week Attends religion service: Not on file Active member of club or organization: Not on file Attends meetings of clubs or organizations: Not on file Relationship status: Not on file Other Topics Concern Not on file Social History Narrative Not on file Past Surgical History: Procedure Laterality Date BONE MARROW BIOPSY W/ ASPIRATION 06/04/2018 ........Dr. Pat BREAST BIOPSY Left 10/12/2017 Stereo-proliferative fibrocystic changes and associated microcalcifications, focal pseudoangiomatous stromal hyperplasia CATARACT EXTRACTION, BILATERAL COLONOSCOPY 37 years old..Diverticulitis COLONOSCOPY 05/07/2017 diverticulosis, signle polyp in sigmoid, internal hermorrhoids...Dimitris DILATION AND CURETTAGE OF UTERUS for utreine bleeding LAMINECTOMY DISC ANTERIOR CERVICAL W/ FUSION MULTI LEVEL Bilateral 06/07/2020 Procedure: Anterior Cervical Discectomy and Fusion, C4-5 and C5-6; Surgeon: Jose Gallagher MD; Location: Main OR; Service: Neurological LUMBAR FUSION 10/19/2017 Allergies Allergen Reactions Latex Rash Patient's Medications New Prescriptions No medications on file Previous Medications ACCU-CHEK GUIDE ME GLUCOSE MTR MISC USE DIRECTED ALBUTEROL (VENTOLIN HFA) 90 MCG/ACTUATION INHALER Inhale 2 (two) puffs every 6 (six) hours as needed for wheezing . ALCOHOL PREP PADS PADM Use as directed 4x daily. DX code E11.65 . ASPIRIN 81 MG EC TABLET Take 81 mg by mouth daily. ATORVASTATIN (LIPITOR) 40 MG TABLET TAKE ONE TABLET BY MOUTH AT BEDTIME BLOOD PRESSURE MONITOR (BLOOD PRESSURE KIT) KIT To monitor blood pressure twice daily . BLOOD SUGAR DIAGNOSTIC (GLUCOSE BLOOD) STRIPS To check blood sugar four times daily E11.65 . DULOXETINE (CYMBALTA) 60 MG CAPSULE Take 1 (one) capsule (60 mg total) by mouth daily . GABAPENTIN (NEURONTIN) 600 MG TABLET Take 1 (one) tablet (600 mg total) by mouth 3 (three) times a day . GLIMEPIRIDE (AMARYL) 2 MG TABLET Take 1 tablet PO BID . INSULIN ASPART U-100 (NOVOLOG FLEXPEN U-100 INSULIN) 100 UNIT/ML (3 ML) INPN Inject 30 (thirty) Units under the skin 3 (three) times a day before meals . INSULIN GLARGINE (LANTUS SOLOSTAR U-100 INSULIN) 100 UNIT/ML (3 ML) INPN Take 55units every eveningat bedtime . INSULIN SYRINGE-NEEDLE U-100 (SURE COMFORT INSULIN SYRINGE) 0.3 ML 31 GAUGE X 5/16" SYRG Use as directed 4 times daily, Dx E11.65 . LANCETS (ACCU-CHEK FASTCLIX LANCET DRUM) [facility] Dg code E11.65 Use as directed 4 times daily . LISINOPRIL (PRINIVIL,ZESTRIL) 20 MG TABLET Take 1 (one) tablet (20 mg total) by mouth daily . MELOXICAM (MOBIC) 15 MG TABLET TAKE ONE TABLET BY MOUTH ONCE DAILY METOPROLOL TARTRATE (LOPRESSOR) 25 MG TABLET Take 1 (one) tablet (25 mg total) by mouth 2 (two) times a day . NYSTATIN (MYCOSTATIN) OINTMENT Apply topically 2 (two) times a day . PANTOPRAZOLE (PROTONIX) 40 MG TABLET TAKE ONE TABLET BY MOUTH ONCE DAILY PEN NEEDLE, DIABETIC 31 GAUGE X 5/16" NDLE Use as directed for insulin adm. Insulin and Victoza . VICTOZA 2-PUMA 0.6 MG/0.1 ML (18 MG/3 ML) PEN INJECT 1.2 MG SUBCUTANEOUSLY DAILY Modified Medications Modified Medication Previous Medication LIDOCAINE (LIDOCAINE) 2 % SOLN lidocaine (lidocaine) 2 % Soln Applied on teeth were swish and spit every few hours may use cotton ball also for pain . Applied onteeth were swish and spit every few hours may use cotton ball also for pain . Discontinued Medications BUSPIRONE (BUSPAR) 10 MG TABLET TAKE ONE TABLET BY MOUTH THREE TIMES DAILY METOCLOPRAMIDE (REGLAN) 10 MG TABLET TAKE ONE TABLET BY MOUTH FOUR TIMES DAILY WITH MEALS AND EVERYNIGHT Review of Systems Review of Systems Constitutional: Negative for activity change, appetite change, fatigue, malaise/fatigue and weight loss. HENT: Negative for sore throat. Respiratory: Negative for cough and shortness of breath. Cardiovascular: Negative for chest pain, palpitations and PND. Gastrointestinal: Negative for heartburn and melena. Musculoskeletal: Positive for neck pain (chornic ). Negative for myalgias and muscle weakness. Neurological: Negative for dizziness, focal weakness, facial asymmetry, light- headedness and headaches. Psychiatric/Behavioral: Negative for agitation. The patient is not nervous/anxious. Vitals: 11/21/20 1359 BP: 118/71 BP Location: Left arm Patient Position: Sitting BP Cuff Size: Adult Pulse: 81 Resp: 16 Temp: 98.1 F (36.7 C) TempSrc: Temporal SpO2: 97% Weight: 102.4 kg (225 lb 12.8 oz) Height: 5' 4" Body mass index is 38.76 kg/m . Physical Exam Physical Exam Vitals signs reviewed. Constitutional: Appearance: Normal appearance. She is well-developed. HENT: Head: Normocephalic. Right Ear: External ear normal. Left Ear: External ear normal. Nose: Nose normal. Eyes: General: Lids are normal. Cardiovascular: Rate and Rhythm: Normal rate and regular rhythm. Heart sounds: Normal heart sounds. Pulmonary: Effort: Pulmonary effort is normal. Breath sounds: Normal breath sounds. Musculoskeletal: Normal range of motion. Comments: Ambulates with assistance of a cane. Skin: General: Skin is warm and dry. Neurological: General: No focal deficit present. Mental Status: She is alert and oriented to person, place, and time. Coordination: Coordination is intact. Gait: Gait is intact. Psychiatric: Attention and Perception: Attention normal. Mood and Affect: Mood normal. Speech: Speech normal. Behavior: Behavior normal. Behavior is cooperative. Thought Content: Thought content normal. Cognition and Memory: Cognition normal. Judgment: Judgment normal. OARRS/NARxCHECK Report Received and Assessed: 09/30/2020 Date controlled substance agreement signed: 08/22/2019 Date of last drug screen: 08/22/2019 Functional Assessment: Last narcotic script filled 06/11/2020 The 10-year ASCVD risk score ([employer] Mark[employer]y SOSA Jr., et al., 2013) is: 5% Values used to calculate the score: Age: 55 years Sex: Female Is Non- : No Diabetic: Yes Tobacco smoker: No Systolic Blood Pressure: 118 mmHg Is BP treated: Yes HDL Cholesterol: 45 mg/dL Total Cholesterol: 190 mg/dL Assessment/Plan Problem List Items Addressed This Visit Digestive Gastroesophageal reflux disease As discussed within your appointment today, you are doing well on Protonix. I would like you to continue to take your medication(s) as ordered. If medication refills are needed, they have been sent to your pharmacy. Cardiovascular and Mediastinum Hypertension As discussed within your appointment, your blood pressure is 118/71. I would like you to continue to take medications as ordered, and increase activity as tolerated (goal is 150 minutes of cardiovascular activity weekly), I would also like you to reduce salt intake as this can cause fluid retention, and eat a heart healthy diet. Continue to monitor blood pressure at home in the morning upon awakening and in the evening prior to going to bed. Bring blood pressure log and cuff to your next visit. Your goal blood pressure is to be between 90/60 - 140/90. Other Hyperlipidemia You are doing well on Lipitor, please continue to take medication as ordered. Please contact the office if you develop any muscle or joint pain, as you currently deny all side effects related to statin medications. Fibromyalgia As discussed within your appointment today, you are doing well on Cymbalta. I would like you to continue to take your medication(s) as ordered. If medication refills are needed, they have been sent to your pharmacy. Chronic dental pain - Primary I would like you to use Lidocaine solution as needed, and as directed. Relevant Medications lidocaine (lidocaine) 2 % Soln Goals None For any new medications prescribed today, patient was educated about indications for the medication, how to take the medication and potential side effects of the medications. Please note: Portions of this chart may have been created with [employer] voice recognition software. Occasional wrong-word or "sound-like" substitutions may have occurred due to inherent limitations of the voice recognition software. Please read the chart carefully and recognize, using context, where the substitutions have occurred. documented in this encounter Reason for Referral Status Reason Specialty Diagnoses / Procedures Referred By Contact Referred To Contact Authorized Patient Preference Physical Therapy / Rehabilitation Diagnoses S/P lumbar spinal fusion Kary Lennon CNP [address] [place] [address] Status Reason Specialty Diagnoses / Procedures Referred By Contact Referred To Contact Closed Orthopedic Surgery Diagnoses Thoracic back pain, unspecified back pain laterality, unspecified chronicity Scott Espinosa CNP [address] [place] [address] Linh Pat MD [address] [place] [address] Status Reason Specialty Diagnoses / Procedures Referre d By Contact Referred To Contact Closed Nutrition Diagnoses Type 2 diabetes mellitus with diabetic polyneuropathy, with long-term current use of insulin ([facility]) Naomi Reece MD [address] [address] Status Reason Specialty Diagnoses / Procedures Referred By Contact Referred To Contact Closed Endocrinology Diagnoses Type 2 diabetes mellitus with diabetic polyneuropathy, with long-term current use of insulin ([facility]) Naomi Reece MD [address] [address] Status Reason Specialty Diagnoses / Procedures Referred By Contact Referred To Contact Closed Specialty Services Required/Patient' s Best Interest Podiatry Diagnoses Neuropathy involving both lower extremities Scott Espinosa, JOVANA [address] [place] [address] Linh Rodriguez, KAREN [address] [id number] Status Reason Specialty Diagnoses / Procedures Referred By Contact Referred To Contact Authorized Specialty Services Required/Nanette ent's Best Interest Physical Therapy / Rehabilitation Diagnoses S/P lumbar spinal fusion Lumbar degenerative disc disease Kary Lennon, JOVANA [address] [place] [address] [facility] [address] [place] [id number] Status Reason Specialty Diagnoses / Procedures Referred By Contact Referred To Contact New Request Pain Clinic Diagnoses Spinal stenosis of lumbar region without neurogenic claudication [facility], Other [address] [place] [address] Status Reason Specialty Diagnoses / Procedures Referred By Contact Referred To Contact Closed Patient Preference Health Ict Programmer Diagnoses Uncontrolled type 2 diabetes mellitus with hyperglycemia, with long-term current use of insulin ([facility]) Hypertension, unspecified type Marianela Fowler, CORPORATE CONSULTANT [address] [phone] Status Reason Specialty Diagnoses / Procedures Referre d By Contact Referred To Contact Closed Radiology Diagnoses History of fibrocystic disease of breast Screening mammogram, encounter for Procedures Mammography Screening Alfredo Bilateral Mammography Screening Bilateral Dimitris, Nancy Flowers MD 335 [facility] [address] [address] Status Reason Specialty Diagnoses / Procedures Referre d By Contact Referred To Contact Closed Radiology Diagnoses Chronic neck pain Procedures MR Cervical Spine Without Contrast Migel Browning PA-C [address] [phone] Status Reason Specialty Diagnoses / Procedures Referre d By Contact Referred To Contact Closed Radiology Diagnoses Chronic bilateral low back pain, unspecified whether sciatica present Procedures MR Lumbar Spine Without Contrast Migel Browning PA-C [address] [phone] Status Reason Specialty Diagnoses / Procedures Referred By Contact Referred To Contact Closed Specialty Services Required/Patient' s Best Interest Radiology Diagnoses Pulmonary nodule Procedures CT Chest Thorax With Contrast Marianela Fowler CNP [facility] [place] [address] Status Reason Specialty Diagnoses / Procedures Referred By Contact Referred To Contact Authorized Specialty Services Required/Patient 's Best Interest Radiology Diagnoses Pulmonary nodule, left Procedures PET Tumor Imaging With CT Skull To Thigh Marianela Fowler CNP [address] [place] [address] Status Reason Specialty Diagnoses / Procedures Referred By Contact Referred To Contact Pending Review Patient Preference Home Health Services Diagnoses S/P cervical spinal fusion Degenerative disc disease, cervical Lumbar degenerative disc disease Herniated intervertebral disc of lumbar spine Spinal stenosis of lumbar region without neurogenic claudication Uncontrolled type 2 diabetes mellitus with hyperglycemia, with long-term current use of insulin ([facility]) Neuropathy involving both lower extremities Type 2 diabetes mellitus without complication, with long-term current use of insulin ([facility]) H/O spinal fusion Essential hypertension Hyperlipidemia, unspecified hyperlipidemia type Fibromyalgia Class 3 severe obesity with serious comorbidity and body mass index (BMI) of 45.0 to 49.9 in adult, unspecified obesity type (HCC) Gastroesophageal reflux disease, esophagitis presence not specified Chronic neck pain Chronic thoracic spine pain Chronic bilateral low back pain, unspecified whether sciatica present Anxiety and depression Intractable vomiting with nausea, unspecified vomiting type Anxiety Pulmonary nodule, left Preoperative examination, unspecified Jose Gallagher MD 335 [facility] [address] [address] Status Reason Specialty Diagnoses / Procedures Referred By Contact Referred To Contact Pending Review Infusion Therapy Gayle Maravilla MD [facility] [address] [place] [address] Specialty Infusion [address] [place] [address] Status Reason Specialty Diagnoses / Procedures Referred By Contact Referred To Contact Pending Review Specialty Services Required/Nanette ent's Best Interest Interventional Radiology Diagnoses Pulmonary nodule Francisco Stokes MD [address] [address] Thaddeus Mari MD [address] [place] [address] Status Reason Specialty Diagnoses / Procedures Referred By Contact Referred To Contact New Request Radiology Diagnoses Pulmonary nodule, left Procedures PET Tumor Imaging With CT Skull To Thigh Marianela Fowler, CORPORATE CONSULTANT [address] [place] [address] Status Reason Specialty Diagnoses / Procedures Referred By Contact Referred To Contact Authorized Rehabilitation Diagnoses Chronic neck pain Chronic thoracic spine pain Chronic bilateral low back pain, unspecified whether sciatica present Migel Browning PA-C [address] [facility] [place] [id number] Status Reason Specialty Diagnoses / Procedures Referred By Contact Referred To Contact Authorized Specialty Services Required/Patijoanne t's Best Interest Neurosurgery Diagnoses Chronic neck pain Marianela Fowler, CORPORATE CONSULTANT [address] [place] [id number] Guanaco Rivera MD [address] [facility] [place] [address] Status Reason Specialty Diagnoses / Procedures Referred By Contact Referred To Contact Pending Review Radiology Diagnoses History of fibrocystic disease of breast Screening mammogram, encounter for Procedures Mammography Screening Bilateral Nancy Shanks MD 335 [facility] [address] [place] [address] Status Reason Specialty Diagnoses / Procedures Referred By Contact Referred To Contact Pending Review Specialty Services Required/Patie nt's Best Interest Pain Management Diagnoses Fibromyalgia Trigger point of neck Migel Browning PA-C [address] [place] [address] Galindo Duffy MD [address] [facility] [place] [address] Specialty Diagnoses / Procedures Referred By Contac t Referred To Contact CT IMAGING Diagnoses Lung nodules Procedures CT CHEST WO IVCON DIAGNOSTIC COMPUTED TOMOGRAPHY THORAX W/O CNTRST Arianna Rosales A, LOCOMOTIVE ENGINEER.CORPORATE CONSULTANT [address] [place] [address] Ct Imaging Referral ID Status Reason Start Date Expiration Date V isits Requested Visits Authorized [id number] Closed Auto-Generate d Referral 11/11/2021 12/11/2022 1 1 Specialty Diagnoses / Procedures Referred By Contac t Referred To Contact Gastroenterology Diagnoses Decreased appetite Dysphagia, unspecified type Procedures CONSULT TO GASTROENTEROLOGY OFFICE/OUTPATIENT NEW HIGH MDM 60-74 MINUTES Arianna Rosales APRN.CORPORATE CONSULTANT [address] [place] [address] Referral ID Status Reason Start Date Expiration Date Visits Requested Visits Authorized [id number] Pending Review PCP Requested Referral 04/21/2022 04/21/2023 1 1 Referral ID Status Reason Start Date Expiration Date Visits Requested Visits Authorized [id number] Pending Review Auto-Generat ed Referral 2 08/28/2023 1 1 Specialty Diagnoses / Procedures Referred By Contact Referred To Contact Endocrinology / [facility] Department Diagnoses Type 2 diabetes mellitus with peripheral neuropathy (HCC) Procedures CONSULT TO ENDOCRINOLOGY OFFICE/OUTPATIENT NEW HIGH MDM 60-74 MINUTES Arianna Rosales APRN.CORPORATE CONSULTANT [address] [place] [address] Shanell Tay MD [address] [facility], [address] [place] [address] Referral ID Status Reason Start Date Expiration Date Visits Requested Visits Authorized [id number] Pending Review PCP Requested Referral 2 08/29/2023 1 1 Specialty Diagnoses / Procedures Referred By Jeevan amezquita Referred To Contact Diagnoses Dermoid cyst of spine Procedures CONSULT TO ORTHOPAEDIC SURGERY OFFICE/OUTPATIENT NEW HIGH MDM 60-74 MINUTES Arianna Rosales APRN.CORPORATE CONSULTANT [address] [place] [address] Yann Hawley DO [address] [place] [address] [address] [place] [address] Referral ID Status Reason Start Date Expiration Date Visits Requested Visits Authorized [id number] Pending Review PCP Requested Referral 12/22/2022 12/22/2023 1 1 Specialty Diagnoses / Procedures Referred By Jeevan amezquita Referred To Contact BR IMAGING Diagnoses Encounter for screening mammogram for malignant neoplasm of breast Procedures FRED SCREENING SCREENING MAMMOGRAPHY BI 2-VIEW BREAST INC CAD Arianna Rosales APRN.CORPORATE CONSULTANT [address] [place] [address] Br Imaging [address] [place] [address] Referral ID Status Reason Start Date Expiration Date Visits Requested Visits Authorized [id number] Pending Review Auto-Generat ed Referral 12/22/2022 01/21/2024 1 1 Specialty Diagnoses / Procedures Referred By Contac t Referred To Contact Radiology Diagnoses Breast cancer screening by mammogram Procedures Mammography Screening Alfredo Bilateral Marianela Fowler, CORPORATE CONSULTANT [address] [place] [address] Referral ID Status Reason Start Date Expiration Date V isits Requested Visits Authorized [id number] Authorized 01/26/2023 01/26/2024 1 1 Specialty Diagnoses / Procedures Referred By Contac t Referred To Contact Diagnoses Uncontrolled type 2 diabetes mellitus with hyperglycemia (HCC) Procedures CONSULT TO ENDOCRINOLOGY OFFICE/OUTPATIENT NEW HIGH MDM 60-74 MINUTES Arianna Rosales, LOCOMOTIVE ENGINEER.CORPORATE CONSULTANT [address] [place] [address] Abraham Valadez MD [address] [facility] [address] [place] [address] Referral ID Status Reason Start Date Expiration Date Visits Requested Visits Authorized [id number] Pending Review PCP Requested Referral 04/10/2023 04/09/2024 1 1 Referral ID Status Reason Start Date Expiration Date V isits Requested Visits Authorized [id number] Authorized 04/18/2024 04/18/2025 1 1 Hospital Course Note [facility] [address], [place] [address]UEAE JUANA HANDY [id number] 1965ADMIT 05/10/2018DISCH 05/13/2018DISCHARGE SUMMARYADMITTING CLINICAL DIAGNOSISSpinal stenosis lumbar spine L4-5.PRINCIPAL DIAGNOSISSpinal stenosis lumbar spine L4-5.OPERATIONDecompressive laminectomy with fusion with pedicle screws, plates, and localbone grafting L4-5.HISTORYPatient is a 52-year-old female who complained of low back pain. First seenon 12/02/2017. Has tried physical therapy, epidurals, and oral medications,not relieved. Had a previous surgery at L4-5 with a hemilaminectomy anddiskectomy which caused recurrent disk herniation. X-ray showed the same.Patient elected to proceed with surgical intervention.HOSPITAL COURSEPatient was admitted 05/10/2018 for surgery. Surgical procedure was adecompressive laminectomy and fusion L4 through 5 with pedicle screws, plates,and local bone grafting. The patient tolerated the procedure well and wastransferred to (more content not included)... Note [address], [place] [address]RNLP OLEJUANA ACID FILLER [id number] 1965DATEOPERATIVE REPORT / PROCEDURE NOTESURGEON LINH PAT, MDPREOPERATIVE DIAGNOSISHerniated disc L4-5, right, with spinal stenosis.OPERATION PERFORMEDHemilaminectomy, L4; diskectomy L4-5; foraminotomy L5-S1, right.ASSISTDekennedy Lennon, JOVANA.ANESTHESIAGeneral.TECHNIQUEUnder general anesthesia, with the patient in the prone position on Jacksontable, spine was prepped and draped sterilely. A midline incision was madefrom approximately L3-4-S1 through skin and subcutaneous tissue. Incisionmade through deep fascia. The lamina of L4-5 on the right was exposed andverified by intraoperative fluoroscopy. Deep self-retaining retractors wereinserted. The spinous process of L4 removed. Hemilaminectomy L4 performedusing curettes, Kerrison oscillating saw. The L5 nerve root was identifiedand foraminotomy performed at L5-S1. The nerve root and thecal sac were thenr (more content not included)... Note [address], [place] [address]VIUJ OLEJUANA ACID FILLER [id number] 1965DATEOPERATIVE REPORT / PROCEDURE NOTESURGEON LINH PAT, DENISET YANI WILLETT, MDPREOPERATIVE DIAGNOSISRecurrent disk herniation L4-5 with spinal stenosis.OPERATION PERFORMEDDecompressive laminectomy L4-5; posterolateral spinal fusion L4-5 with pediclescrews, plates and local bone graft with bone marrow aspirate.ANESTHESIAGeneral.TECHNIQUEWith the patient in prone position under general anesthesia, the spine wasprepped and draped sterilely. Incision made with previous surgical scar fromapproximately L3-4 to L5-S1 through skin and subcutaneous tissue, deep fascia.Careful dissection was performed around the previous right hemilaminotomy,status post diskectomy L4-5 on the right. Once thorough exposure wasperformed of the transverse process at L4-L5, deep self-retaining retractorswere inserted. At this point using careful dissection using curved (more content not included)... Procedure Findings Note [facility] [address] [facility], [place] [address]VTQYJUANA ALCANTARA V ACID FILLER [id number] 1965DATEOPERATIVE REPORT / PROCEDURE NOTESURGEON LINH PAT, MDPREOPERATIVE DIAGNOSISHerniated disc L4-5, right, with spinal stenosis.OPERATION PERFORMEDHemilaminectomy, L4; diskectomy L4-5; foraminotomy L5-S1, right.Vitor Lennon, JOVANA.ANESTHESIAGeneral.TECHNIQUEUnder general anesthesia, with the patient in the prone position on Jacksontable, spine was prepped and draped sterilely. A midline incision was madefrom approximately L3-4-S1 through skin and subcutaneous tissue. Incisionmade through deep fascia. The lamina of L4-5 on the right was exposed andverified by intraoperative fluoroscopy. Deep self-retaining retractors wereinserted. The spinous process of L4 removed. Hemilaminectomy L4 performedusing curettes, Kerrison oscillating saw. The L5 nerve root was identifiedand foraminotomy performed at L5-S1. The nerve root and thecal sac were thenr (more content not included)... Note [facility] [address] [facility] [place] [address]WOKH JUANA HANDY V ACID FILLER [id number] 1965DATEOPERATIVE REPORT / PROCEDURE NOTESURGEON LINH PAT, ISSAISTANT YANI WILLETT, MDPREOPERATIVE DIAGNOSISRecurrent disk herniation L4-5 with spinal stenosis.OPERATION PERFORMEDDecompressive laminectomy L4-5; posterolateral spinal fusion L4-5 with pediclescrews, plates and local bone graft with bone marrow aspirate.ANESTHESIAGeneral.TECHNIQUEWith the patient in prone position under general anesthesia, the spine wasprepped and draped sterilely. Incision made with previous surgical scar fromapproximately L3-4 to L5-S1 through skin and subcutaneous tissue, deep fascia.Careful dissection was performed around the previous right hemilaminotomy,status post diskectomy L4-5 on the right. Once thorough exposure wasperformed of the transverse process at L4-L5, deep self-retaining retractorswere inserted. At this point using careful dissection using curved (more content not included)... Discharge Instructions * Attachments The following attachments cannot be sent through Care Everywhere. * Back: Strain (Mauritanian) in this encounter* Instructions* Margarito Jacboo PA-C - 02/27/2019 X-RAYS OF YOUR BACK AND RIGHT FOOT ARE NEGATIVE. YOUR SURGICAL HARDWARE IS IN APPROPRIATE POSITION.CONTINUE TO TAKE YOUR GABAPENTIN AND MOBIC PRESCRIBED FOR PAIN. * Attachments The following attachments cannot be sent through Care Everywhere. * Contusion (Mauritanian) * Back Pain (Mauritanian) documented in this encounter* Instructions* Charles Buckley MD - 04/19/[address] scan noted your spleen to be enlarged. This will require follow-up. * Attachments The following attachments cannot be sent through Care Everywhere. * Abdominal Pain (Mauritanian) * Hypokalemia (Mauritanian) documented in this encounter* Instructions* Steven Goff MD - 05/16/2019 If the pain does not improve consult with your primary care physician Return to ER as needed documented in this encounter* Instructions* Allyssa Olguin CNP - 08/08/2019 Go to the appointment you have tomorrow at the dentist in [place] as previously arranged. Take the medication prescribed you today as directed. * Attachments The following attachments cannot be sent through Care Everywhere. * Periodontal Conditions (Mauritanian) * Tooth and Gum Pain (Mauritanian) documented in this encounter* Attachments The following attachments cannot be sent through Care Everywhere. * Lightheadedness or Faintness (Mauritanian) * UTI (Urinary Tract Infection): Female (Mauritanian) documented in this encounter* Attachments The following attachments cannot be sent through Care Everywhere. * Cervical Discectomy: Post-op (Mauritanian) * Diabetes Diet Guidelines: General Info (Mauritanian) documented in this encounter* Attachments The following attachments cannot be sent through Care Everywhere. * Tooth and Gum Pain (Mauritanian) documented in this encounter* Attachments The following attachments cannot be sent through Care Everywhere. * UTI (Urinary Tract Infection): Female (Mauritanian) * Hyperglycemia: General Info (Mauritanian) * Coronavirus Disease (COVID-19): Isolation (Mauritanian) * Coronavirus Disease (COVID-19): General Info (Mauritanian) documented in this encounter Additional Source Comments Addendum Note - Scott Espinosa CNP - 12/21/2017 1:51 PM EDTAssessment & Plan Note - Scott Espinosa CNP - 03/26/2018 4:39 PM EDTQuick Note - Torres Tapia RN - 06/11/2020 2:20 PM EDT Miscellaneous Notes (unrecog nized section and content) Addended by: SCOTT ESPINOSA on: 12/21/2017 04:17 PM Modules accepted: Orders in this encounter Associated Problem(s): Uncontrolled type 2 diabetes mellitus with hyperglycemia, with long-term current use of insulin (HCC) Follow up as scheduled with Albert. I have increased your Basaglar to 40 units at bedtime and mealtime insulin will increase to 15 units premeals. Oral medication to stay the same. Lisinopril to increase to 20mg daily.in this encounter Associated Problem(s): Uncontrolled type 2 diabetes mellitus with hyperglycemia, with long-term current use of insulin (HCC) I will see you in 4 months, please get your fasting blood work in 3 months and schedule a female exam when you are able to I have sent rx for her insulin, pt is undergoing sugery Thursday with Dr Stahl this encounter ED Attestation: I did not see this patient. However, I was personally available for consult in the ED for this patient, if the Advanced Practice Provider (RHETT) needed any assistance. The RHETT evaluated the patient independently for a complaint of BACK SPASMS, and completed their own examination, documentation, and discharge. in this encounter Patient wore mask, tech wore gloves and mask documented in this encounter Associated Problem(s): Depression with anxiety It was discussed with the patient that medication may help improve her mood however it would take 6 to 8 weeks for this medication take effect. Patient states she does not wish to try medication at this time however work on her relationship stressors and hope that they resolve on their own. Associated Problem(s): Hyperlipidemia Continue to take lipitor 40mg daily. Associated Problem(s): Hypertension Uncontrolled, continue meds, increase activity as can tolerate, limit salt, and watch diet. Continue to monitor blood pressure at home as instructed. Bring blood pressure log and cuff to your next visit. I believe your blood pressure in the office today is elevated to achieve your emotional stress you are under today. Please monitor your blood pressure outside of the office setting at random times throughout the day, being these numbers to your next appointment. Associated Problem(s): Gastroesophageal reflux disease Controlled well on Protonix. Continue to take as ordered. documented in this encounter Associated Problem(s): Neuropathy involving both lower extremities Continue to take gabapentin as ordered. Please return to the office in 6 months for follow-up. Associated Problem(s): Hypertension Stable, continue meds, increase activity as can tolerate, limit salt, and watch diet. Continue to monitor blood pressure at home as instructed. Bring blood pressure log and cuff to your next visit. documented in this encounter Associated Problem(s): Essential hypertension Patient's blood pressure is within normal limits here today. It was discussed with the patient as well as she is having anxiety/panic attacks and is under an increased amount of stress. The blood pressure will continue to be elevated. Associated Problem(s): Yeast infection of the skin Please take the Diflucan as ordered and use the nystatin ointment as needed. Take the Diflucan as ordered. Please contact the office if your rash continues after this treatment. Associated Problem(s): Anxiety I would like you to start on buspirone, take this medication 2-3 times daily to help with your anxiety. This medication should help you relax which then should help decrease her blood pressures. documented in this encounter Associated Problem(s): Depression with anxiety Patient doing significantly better since ending a toxic friendship. States that she has completely moved into her new home, and appears to be happy with that move. Associated Problem(s): Essential hypertension Stable, continue medications as ordered, increase activity as tolerated, reduce salt intake as this can cause fluid retention, and watch diet, it is best to eat as . Continue to monitor blood pressure at home in the morning upon awakening and in the evening prior to going to bed. Bring blood pressure log and cuff to your next visit. documented in this encounter Seen by [place] to [place], Good Rx and transportation resource, reviewed AVS, verbalizes understanding, denies any further needs. Problem: Pain Goal: Manage acute pain Outcome: Partially Met Goal: Manage chronic pain Outcome: Partially Met Goal: Reduced pain sensation Outcome: Partially Met Goal: Achievement of comfort function goal Outcome: Partially Met Problem: Actual or potential alteration in health Goal: Absence of healthcare acquired conditions Outcome: Partially Met Goal: Knowledge of Interdisciplinary Plan of Care Outcome: Partially Met Goal: Knowledge of Enviroment Outcome: Partially Met Problem: Falls, Risk of Goal: Absence of falls Outcome: Partially Met Problem: Pressure Ulcer - Risk of Goal: Absence of pressure ulcer Outcome: Partially Met Patient agreeable to taking Taxi home today if voucher is provided due to costs. Charge nurse, Neida Grayson RN made aware. Patient states she would like to eat lunch and then is agreeable to going home. Problem: Pain Goal: Manage acute pain Outcome: Partially Met Goal: Manage chronic pain Outcome: Partially Met Goal: Reduced pain sensation Outcome: Partially Met Goal: Achievement of comfort function goal Outcome: Partially Met Problem: Actual or potential alteration in health Goal: Absence of healthcare acquired conditions Outcome: Partially Met Goal: Knowledge of Interdisciplinary Plan of Care Outcome: Partially Met Goal: Knowledge of Enviroment Outcome: Partially Met Problem: Falls, Risk of Goal: Absence of falls Outcome: Partially Met Problem: Pressure Ulcer - Risk of Goal: Absence of pressure ulcer Outcome: Partially Met Pt again states she is having trouble finding a ride home. Pt states she has a phobia of taxi cabs when offered a cab voucher. Estella Rodriguez charge nurse notified. Problem: Pain Goal: Manage acute pain Outcome: Not Met Goal: Manage chronic pain Outcome: Not Met Goal: Reduced pain sensation Outcome: Not Met Goal: Achievement of comfort function goal Outcome: Not Met Problem: Actual or potential alteration in health Goal: Absence of healthcare acquired conditions Outcome: Not Met Goal: Knowledge of Interdisciplinary Plan of Care Outcome: Not Met Goal: Knowledge of Enviroment Outcome: Not Met Problem: Falls, Risk of Goal: Absence of falls Outcome: Not Met Problem: Pressure Ulcer - Risk of Goal: Absence of pressure ulcer Outcome: Not Met JUANA HANDY [id number] 1965 DATE 06/07/2020 OPERATIVE REPORT SURGEON JOSE GALLAGHER MD PREOPERATIVE DIAGNOSES C4-C5, C5-C6 degenerative disk disease, foraminal stenosis. POSTOPERATIVE DIAGNOSES C4-C5, C5-C6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 differently: Inject 15 Units under the skin 3 (three) times a day Pt uses vials not pen.) lancets 33 gauge Misc USE TO TEST FOUR TIMES DAILY . liraglutide (VICTOZA 2-PUMA) 0.6 mg/0.1 mL (18 mg/3 mL) Pen Inject 1.2 mg under the skin daily . lisinopril (PRINIVIL,ZESTRIL) 20 MG tablet Take 1 (one) tablet (20 mg total) by mouth daily . meloxicam (MOBIC) 15 MG tablet Take 1 (one) tablet (15 mg total) by mouth daily . metoprolol tartrate (LOPRESSOR) 25 MG tablet Take 1 (one) tablet (25 mg total) by mouth 2 (two) times a day . pantoprazole (PROTONIX) 40 MG tablet Take 1 (one) tablet (40 mg total) by mouth daily . pen needle, diabetic 31 gauge x 5/16" Ndle Use as directed for insulin adm. Insulin and Victoza . SURE COMFORT INSULIN SYRINGE 0.3 mL 31 gauge x 5/16 Syrg TRUE METRIX GLUCOSE TEST STRIP strips To test three times a day. DX code E11.65 . Allergies Allergen Reactions Latex Rash Review of Systems Constitutional: Negative for chills, fatigue and fever. Musculoskeletal: Pain from the hips down in the lower extremities All other systems reviewed and are negative. Patient Vitals for the past 24 hrs: Temp Temp [facility] Resp 05/16/19 2149 97.9 F (36.6 C) Oral 16 Physical Exam Vitals signs and nursing note reviewed. Constitutional: Appearance: Normal appearance. HENT: Head: Normocephalic and atraumatic. Nose: Nose normal. Eyes: Extraocular Movements: Extraocular movements intact. Pupils: Pupils are equal, round, and reactive to light. Neck: Musculoskeletal: Normal range of motion and neck supple. No neck rigidity or muscular tenderness. Cardiovascular: Rate and Rhythm: Normal rate and regular rhythm. Pulses: Normal pulses. Heart sounds: Normal heart sounds. No murmur. No friction rub. Pulmonary: Effort: Pulmonary effort is normal. No respiratory distress. Breath sounds: Normal breath sounds. No stridor. No wheezing or rhonchi. Abdominal: General: Abdomen is flat. Bowel sounds are normal. There is no distension. Palpations: Abdomen is soft. Tenderness: There is no tenderness. There is no guarding or rebound. Musculoskeletal: Normal range of motion. General: No swelling, tenderness, deformity or signs of injury. Right lower leg: No edema. Left lower leg: No edema. Skin: Comments: Multiple subacute small punched out skin ulcers mostly on the chest some on the face without erythema or bleed Neurological: General: No focal deficit present. Mental Status: She is alert and oriented to person, place, and time. Laboratory & Radiographic Imaging (if done): Results for orders placed or performed during the hospital encounter of 05/16/19 BMP Result Value Ref Range Sodium 139 135 - 145 mmol/L Potassium 3.7 3.5 - 5.1 mmol/L Chloride 104 98 - 108 mmol/L Bicarbonate 28 21 - 32 mmol/L Anion Gap 11 10 - 20 mmol/L Glucose 98 65 - 99 mg/dL BUN 17 8 - 25 mg/dL Creatinine 0.84 0.40 - 1.10 mg/dL eGFR 80 >=60 mL/min/1.73 m2 BUN/Creatinine Ratio 20.2 (H) 10.0 - 20.0 Calcium 9.2 8.4 - 10.2 mg/dL Magnesium Level Result Value Ref Range Magnesium 2.0 1.6 - 2.4 mg/dL No orders to display Procedures MDM Number of Diagnoses or Management Options Pain in both lower extremities: Diagnosis management comments: Patient comes into the emergency room with bilateral nontraumatic lower extremity pain starting from the waist down which she woke up with around 8:30 PM tonight without change of her activity in the recent past. Vision appears well and not in apparent distress. Patient states she has had similar symptoms in the past in both legs supposedly related to her long-standing peripheral neuropathy but she feels tonight the pain is more severe than before. However, patient's examination is unremarkable. Lower extremities have good bilateral blood flow, of normal color and warmth and no erythema or any evidence of trauma. Passive and active range of motion of lower extremities are intact. States she felt some cramps in the extremities therefore we will check electrolytes to make sure there is stable. The electrolytes including magnesium are complete unremarkable. Patient is asymptomatic and she is discharged home with her significant other with instruction to follow with her primary care physician if symptoms do not improve. . . Clinical Impression: 1. Pain in both lower extremities ED Disposition ED Disposition Condition Comment Discharge Stable Juana Handy discharged to home/self care in stable condition. Follow-up Information Follow-up information has not been specified. Contact information for after-discharge care Follow-up information has not been specified. Steven Goff MD 05/16/19 2221 Bed: 05 Expected date: Expected time: Means of arrival: Comments: EMS CRAMPING documented in this encounter ED PROVIDER NOTE [facility] EMERGENCY DEPARTMENT NAME: Juana Handy AGE: 54 y.o. : 1965 VISIT DATE: 08/08/2019 CSN: [id number] PCP: Marianela Fowler CNP Chief Complaint Patient presents with Dental Pain Dental pain, right upper side for "forever" per patient. States history of gum disease "rotted teeth" and to see a dentist tomorrow, however unable to take the pain anymore. Past Medical History: Diagnosis Date Back pain L2,3,4,5 Chronic bronchitis (HCC) DDD (degenerative disc disease), lumbar Diabetes mellitus, type 2 (HCC) Diverticulitis 2001 Fibromyalgia, primary Hemorrhage 1991 surgery Herniated lumbar intervertebral disc L4-5 Hyperlipidemia Hypertension Neuropathy 10/17/91 Sciatica Past Surgical History: Procedure Laterality Date BONE MARROW BIOPSY W/ ASPIRATION 06/04/2018 ........Dr. Pat BREAST BIOPSY Left 10/12/2017 Stereo-proliferative fibrocystic changes and associated microcalcifications, focal pseudoangiomatous stromal hyperplasia CATARACT EXTRACTION, BILATERAL COLONOSCOPY 37 years old..Diverticulitis COLONOSCOPY 05/07/2017 diverticulosis, signle polyp in sigmoid, internal hermorrhoids...Dimitris DILATION AND CURETTAGE OF UTERUS for utreine bleeding LUMBAR FUSION 10/19/2017 Family History Problem Relation Age of Onset Lung cancer Father Heart failure Father Heart disease Father Diabetes Brother Heart disease Brother Bone cancer Maternal Grandmother Heart failure Maternal Grandmother Stroke Maternal Grandmother Cancer Half-Sister unknown cancer (mother in common) Heart disease Sister Diabetes Sister Mental illness Daughter Cancer Paternal Grandmother Social History Socioeconomic History Marital status: Spouse name: Not on file Number of children: Not on file Years of education: Not on file Highest education level: Not on file Occupational History Not on file Social Needs Financial resource strain: Not on file Food insecurity Worry: Sometimes true Inability: Sometimes true Transportation needs Medical: Not on file Non-medical: Not on file Tobacco Use Smoking status: Never Smoker Smokeless tobacco: Never Used Substance and Sexual Activity Alcohol use: No Drug use: No Sexual activity: Not on file Lifestyle Physical activity Days per week: Not on file Minutes per session: Not on file Stress: Not on file Relationships Social connections Talks on phone: Not on file Gets together: Once a week Attends religion service: Not on file Active member of club or organization: Not on file Attends meetings of clubs or organizations: Not on file Relationship status: Not on file Other Topics Concern Not on file Social History Narrative Not on file Previous Medications Medication Sig ADMELOG U-100 INSULIN LISPRO 100 unit/mL injection INJECT 15 UNITS SUBCUTANEOUSLY THREE TIMES DAILY BEFORE MEALS ALCOHOL PREP PADS PadM Use as directed 4x daily. DX code E11.65 . ammonium lactate (LAC-HYDRIN) 12 % lotion Apply topically 2 (two) times a day as needed for dry skin . aspirin 81 MG EC tablet Take 81 mg by mouth daily. atorvastatin (LIPITOR) 40 MG tablet Take 1 (one) tablet (40 mg total) by mouth at bedtime . BASAGLAR KWIKPEN U-100 INSULIN 100 unit/mL (3 mL) InPn INJECT 40 UITS UNDER THE SKIN NIGHTLY BD INSULIN SYRINGE HALF UNIT 0.3 mL 31 gauge x 5/16" Syrg blood-glucose meter (TRUE METRIX GLUCOSE METER) [facility] Use to check BG 3x daily. DX code E11.65 Needs True Metrix Meter . DULoxetine (CYMBALTA) 60 MG capsule Take 1 (one) capsule (60 mg total) by mouth daily . gabapentin (NEURONTIN) 600 MG tablet Take 1 (one) tablet (600 mg total) by mouth 3 (three) times a day . glimepiride (AMARYL) 2 MG tablet Take 1 tablet PO BID . insulin lispro (HumaLOG KwikPen Insulin) 100 unit/mL InPn Inject 15 (fifteen) Units under the skin 3 (three) times a day. (Patient not taking: Reported on 08/05/2019 .) lancets 33 gauge Misc USE TO TEST FOUR TIMES DAILY . liraglutide (VICTOZA 2-PUMA) 0.6 mg/0.1 mL (18 mg/3 mL) Pen Inject 1.2 mg under the skin daily . lisinopril (PRINIVIL,ZESTRIL) 20 MG tablet Take 1 (one) tablet (20 mg total) by mouth daily . meloxicam (MOBIC) 15 MG tablet Take 1 (one) tablet (15 mg total) by mouth daily . metoprolol tartrate (LOPRESSOR) 25 MG tablet Take 1 (one) tablet (25 mg total) by mouth 2 (two) times a day . pantoprazole (PROTONIX) 40 MG tablet Take 1 (one) tablet (40 mg total) by mouth daily . pen needle, diabetic 31 gauge x 5/16" Ndle Use as directed for insulin adm. Insulin and Victoza . SURE COMFORT INSULIN SYRINGE 0.3 mL 31 gauge x 5/16 Syrg TRUE METRIX GLUCOSE TEST STRIP strips To test three times a day. DX code E11.65 . Allergies Allergen Reactions Latex Rash Review of Systems Constitutional: Negative. HENT: Positive for dental problem. Respiratory: Negative. Cardiovascular: Negative. Skin: Negative. Patient Vitals for the past 24 hrs: BP Temp Temp src Pulse Resp SpO2 Height Weight 08/08/19 1324 (!) 180/83 98.5 F (36.9 C) Oral 83 16 99 % 5' 4" 114.3 kg (252 lb) Physical Exam Constitutional: Appearance: Normal appearance. HENT: Head: Normocephalic and atraumatic. Right Ear: Tympanic membrane, ear canal and external ear normal. Left Ear: Tympanic membrane, ear canal and external ear normal. Nose: Nose normal. Mouth/Throat: Mouth: Mucous membranes are moist. Dentition: Abnormal dentition. Dental caries present. No dental abscesses. Pharynx: Oropharynx is clear. Comments: Evidence of multiple dental caries, multiple rotted teeth down to the gumline Eyes: Extraocular Movements: Extraocular movements intact. Conjunctiva/sclera: Conjunctivae normal. Pupils: Pupils are equal, round, and reactive to light. Neck: Musculoskeletal: Normal range of motion and neck supple. Cardiovascular: Rate and Rhythm: Normal rate and regular rhythm. Pulses: Normal pulses. Heart sounds: Normal heart sounds. Pulmonary: Effort: Pulmonary effort is normal. Breath sounds: Normal breath sounds. Skin: General: Skin is warm and dry. Neurological: Mental Status: She is alert. Laboratory & Radiographic Imaging (if done): No results found for this visit on 08/08/19. No orders to display Procedures MDM Number of Diagnoses or Management Options Gum disease: Pain, dental: Diagnosis management comments: Vicodin ibuprofen and first dose of clindamycin here. Discharged home with prescriptions for Peridex and clindamycin. Patient has an appointment at a dentist in [place] tomorrow as previously arranged, she verbalized understanding to make sure she does in fact go to that appointment. . Clinical Impression: 1. Pain, dental 2. Gum disease ED Disposition ED Disposition Condition Comment Discharge Stable Juana Handy discharged to home/self care in stable condition. Follow-up Information 1. Your dental clinic in [place]. Why: Go to your appointment tomorrow at the dental clinic in [place] as previously arranged Contact information for after-discharge care Follow-up information has not been specified. New Prescriptions clindamycin (CLEOCIN) 300 MG capsule Take 1 (one) capsule (300 mg total) by mouth 3 (three) times a day for 7 days . ibuprofen (ADVIL,MOTRIN) 600 MG tablet Take 1 (one) tablet (600 mg total) by mouth 2 (two) times a day for 3 days . chlorhexidine (Peridex) 0.12 % solution Apply 15 mL to the mouth or throat 2 (two) times a day for 14 days . Allyssa Olguin CNP 08/08/19 1342 Pt reports upper r side dental pain; pt has broken and missing teeth on that side; PT REPORTS NO RELIEF FROM TYLENOL AND IBUPROFEN; PT HAS AN APPOINTMENT WITH DENTIST TOMORROW documented in this encounter D/c paperwork provided. No additional concerns voiced. Pt waiting for ride at this time Special isolation precautions are in place with signage outside this patient's room. This child care lead teacher performs hand hygiene and enters the patient room wearing: ? gloves ? an appropriately fitting (N-95, PAPR, Aura) mask ? face shield ? protective gown to provide care. This PSA helped patient adjust in the bed to become more comfortable. Pt denies any other needs at this time. [facility] ED Attending Note: NAME: Juana Handy 54 y.o. CSN: [id number] PCP: Marianela Fowler CNP History: Chief Complaint: Dizziness and Nausea HPI: The history was obtained from the patient. Juana is a 54 y.o. female who presents with a chief complaint of Dizziness and Nausea. Patient history of bronchitis diabetes diverticulitis fibromyalgia neuropathy who presents with nausea vomiting and lightheadedness Patient with 3 weeks of intermittent lightheadedness, states she is unable to take p.o., is vomiting about once a week, states she vomited yesterday. Nonbilious nonbloody. Has been using Pepto-Bismol. No significant abdominal pain or any new pain. States she had a temperature up to 100 degrees that then comes back down. States she is not eating well because she feels so nauseated. Having some dysuria and increased urinary frequency as well Has not taken anything for nausea PMHx: Past Medical History: Diagnosis Date Back pain L2,3,4,5 Chronic bronchitis (HCC) DDD (degenerative disc disease), lumbar Diabetes mellitus, type 2 (HCC) Diverticulitis 2001 Fibromyalgia, primary Hemorrhage 1991 surgery Herniated lumbar intervertebral disc L4-5 Hyperlipidemia Hypertension Neuropathy 10/17/91 Sciatica PMSx: Past Surgical History: Procedure Laterality Date BONE MARROW BIOPSY W/ ASPIRATION 06/04/2018 ........Dr. Pat BREAST BIOPSY Left 10/12/2017 Stereo-proliferative fibrocystic changes and associated microcalcifications, focal pseudoangiomatous stromal hyperplasia CATARACT EXTRACTION, BILATERAL COLONOSCOPY 37 years old..Diverticulitis COLONOSCOPY 05/07/2017 diverticulosis, signle polyp in sigmoid, internal hermorrhoids...Dimitris DILATION AND CURETTAGE OF UTERUS for utreine bleeding LUMBAR FUSION 10/19/2017 FAM. Hx: Family History Problem Relation Age of Onset Lung cancer Father Heart failure Father Heart disease Father Diabetes Brother Heart disease Brother Bone cancer Maternal Grandmother Heart failure Maternal Grandmother Stroke Maternal Grandmother Cancer Half-Sister unknown cancer (mother in common) Heart disease Sister Diabetes Sister Mental illness Daughter Cancer Paternal Grandmother SOC. Hx: Social History Socioeconomic History Marital status: Spouse name: Not on file Number of children: Not on file Years of education: Not on file Highest education level: Not on file Occupational History Not on file Social Needs Financial resource strain: Somewhat hard Food insecurity Worry: Sometimes true Inability: Sometimes true Transportation needs Medical: No Non-medical: No Tobacco Use Smoking status: Never Smoker Smokeless tobacco: Never Used Substance and Sexual Activity Alcohol use: No Drug use: No Sexual activity: Not Currently Lifestyle Physical activity Days per week: Not on file Minutes per session: Not on file Stress: Not on file Relationships Social connections Talks on phone: Three times a week Gets together: Once a week Attends religion service: Not on file Active member of club or organization: Not on file Attends meetings of clubs or organizations: Not on file Relationship status: Not on file Other Topics Concern Not on file Social History Narrative Not on file MEDs: Previous Medications Medication Sig Alcohol Prep Pads PadM Use as directed 4x daily. DX code E11.65 . ammonium lactate (LAC-HYDRIN) 12 % lotion Apply topically 2 (two) times a day as needed for dry skin . aspirin 81 MG EC tablet Take 81 mg by mouth daily. atorvastatin (LIPITOR) 40 MG tablet Take 1 (one) tablet (40 mg total) by mouth at bedtime . blood-glucose meter (TRUE METRIX GLUCOSE METER) [facility] Use to check BG 3x daily. DX code E11.65 Needs True Metrix Meter . cyclobenzaprine (FLEXERIL) 5 MG tablet Take 1 (one) tablet (5 mg total) by mouth 3 (three) times a day as needed for muscle spasms . DULoxetine (CYMBALTA) 60 MG capsule Take 1 (one) capsule (60 mg total) by mouth daily . gabapentin (NEURONTIN) 600 MG tablet TAKE ONE TABLET BY MOUTH THREE TIMES DAILY glimepiride (AMARYL) 2 MG tablet Take 1 tablet PO BID . insulin glargine (Basaglar KwikPen U-100 Insulin) 100 unit/mL (3 mL) InPn Use nightly as directed, approx 50 units . insulin lispro (HumaLOG U-100 Insulin) 100 unit/mL injection Use as directed approv. 60 units daily total. . insulin syringe-needle U-100 (Sure Comfort Insulin Syringe) 0.3 mL 31 gauge x 5/16" Syrg Use as directed 4 times daily, Dx E11.65 . lancets 33 gauge Misc USE TO TEST FOUR TIMES DAILY . lisinopril (PRINIVIL,ZESTRIL) 20 MG tablet Take 1 (one) tablet (20 mg total) by mouth daily . meloxicam (MOBIC) 15 MG tablet TAKE ONE TABLET BY MOUTH ONCE DAILY metoprolol tartrate (LOPRESSOR) 25 MG tablet Take 1 (one) tablet (25 mg total) by mouth 2 (two) times a day . pantoprazole (PROTONIX) 40 MG tablet TAKE ONE TABLET BY MOUTH ONCE DAILY pen needle, diabetic 31 gauge x 5/16" Ndle Use as directed for insulin adm. Insulin and Victoza . True Metrix Glucose Test Strip strips To test three times a day. DX code E11.65 . Victoza 2-Puma 0.6 mg/0.1 mL (18 mg/3 mL) Pen INJECT 1.2 MG SUBCUTANEOUSLY DAILY ALL: Allergies Allergen Reactions Latex Rash PACU Vitals 01/12/20 1043 BP: (!) 142/95 Pulse: Resp: Temp: SpO2: Review of Systems Constitutional: Negative for activity change and appetite change. HENT: Negative for congestion and sinus pain. Eyes: Negative for pain and visual disturbance. Respiratory: Negative for cough, chest tightness, shortness of breath and wheezing. Cardiovascular: Negative for chest pain and leg swelling. Gastrointestinal: Negative for abdominal pain, diarrhea, nausea and vomiting. Genitourinary: Positive for dysuria and frequency. Musculoskeletal: Negative for joint swelling. Skin: Negative for rash. Neurological: Negative for dizziness, weakness and numbness. All other systems reviewed and are negative. Physical Exam Vitals signs and nursing note reviewed. Constitutional: Appearance: Normal appearance. HENT: Head: Normocephalic and atraumatic. Right Ear: External ear normal. Left Ear: External ear normal. Nose: Nose normal. Mouth/Throat: Mouth: Mucous membranes are moist. Eyes: Extraocular Movements: Extraocular movements intact. Conjunctiva/sclera: Conjunctivae normal. Pupils: Pupils are equal, round, and reactive to light. Neck: Musculoskeletal: Normal range of motion. Cardiovascular: Rate and Rhythm: Normal rate and regular rhythm. Pulses: Normal pulses. Heart sounds: Normal heart sounds. No murmur. No gallop. Pulmonary: Effort: Pulmonary effort is normal. Breath sounds: Normal breath sounds. No stridor. No wheezing, rhonchi or rales. Abdominal: General: There is no distension. Palpations: Abdomen is soft. Tenderness: There is no abdominal tenderness. Musculoskeletal: Normal range of motion. Right lower leg: No edema. Left lower leg: No edema. Skin: General: Skin is warm. Findings: No rash. Neurological: General: No focal deficit present. Mental Status: She is alert and oriented to person, place, and time. Mental status is at baseline. Psychiatric: Mood and Affect: Mood normal. Laboratory & Radiological Imaging (if done): Recent Results (from the past 24 hour(s)) EKG 12-lead Collection Time: 01/12/20 10:44 AM Result Value Ref Range Ventricular Rate 92 BPM Atrial Rate 92 BPM P-R Interval 154 ms QRS Duration 84 ms Q-T Interval 374 ms QTC Calculation (Bezet) 462 ms P Addison 37 degrees R Addison 17 degrees T Addison 52 degrees Chem 7 Collection Time: 01/12/20 10:49 AM Result Value Ref Range Sodium 138 135 - 145 mmol/L Potassium 4.1 3.5 - 5.1 mmol/L Chloride 105 98 - 108 mmol/L Bicarbonate 25 21 - 32 mmol/L Creatinine 0.98 0.40 - 1.10 mg/dL Glucose 258 (H) 65 - 99 mg/dL BUN 16 8 - 25 mg/dL eGFR 66 >=60 mL/min/1.73 m2 BUN/Creatinine Ratio 16.3 10.0 - 20.0 Anion Gap 12 10 - 20 mmol/L Hepatic Function Panel (LFT) Collection Time: 01/12/20 10:49 AM Result Value Ref Range Total Protein 8.2 (H) 6.0 - 8.0 g/dL Albumin 3.3 3.2 - 5.2 g/dL Total Bilirubin 0.6 0.0 - 1.3 mg/dL Bilirubin, Direct 0.1 0.0 - 0.4 mg/dL Alkaline Phosphatase 127 40 - 150 U/L AST 47 (H) 0 - 45 U/L ALT 43 14 - 65 U/L Lipase Collection Time: 01/12/20 10:49 AM Result Value Ref Range Lipase 383 73 - 393 U/L Troponin Collection Time: 01/12/20 10:49 AM Result Value Ref Range Troponin I <15 <=45 ng/L Troponin I Interpretation Normal CBC Auto Differential Collection Time: 01/12/20 10:49 AM Result Value Ref Range WBC 9.87 4.50 - 11.00 K/mcL RBC 5.06 4.00 - 5.20 M/mcL Hemoglobin 13.7 12.0 - 16.0 g/dL Hematocrit 43.7 36.0 - 46.0 % MCV 86.4 80.0 - 100.0 fL MCH 27.1 26.0 - 34.0 pg MCHC 31.4 31.0 - 37.0 g/dL Platelets 302 150 - 400 K/mcL RDW - CV 14.1 11.6 - 14.8 % MPV 10.4 9.0 - 15.5 fL Neutrophils 63.8 % Lymphocytes 25.1 % Monocytes 7.7 % Eosinophils 2.1 % Basophils 0.7 % IG Percent 0.60 % Neutrophils Abs 6.29 1.70 - 7.00 K/mcL Lymphocytes Abs 2.48 0.90 - 4.00 K/mcL Monocytes Abs 0.76 0.30 - 0.90 K/mcL Eosinophils Abs 0.21 0.00 - 0.50 K/mcL Basophils Abs 0.07 0.00 - 0.30 K/mcL IG Absolute 0.06 0.00 - 0.30 K/mcL Nucleated RBC 0.0 % Nucleated RBC Abs 0.00 0.00 - 0.00 K/mcL COVID-19, Molecular Collection Time: 01/12/20 10:50 AM Result Value Ref Range SARS-CoV-2 Not Detected Not Detected Urinalysis Collection Time: 01/12/20 11:08 AM Result Value Ref Range Color, Urine Yellow Colorless, Yellow Clarity, Urine Cloudy (A) Clear Specific [place] 1.028 (H) 1.005 - 1.025 pH, Urine 5.0 5.0 - 7.0 Protein, Urine 30 (A) Negative mg/dL Glucose, Urine 50 (A) Negative mg/dL Ketones, Urine Negative Negative mg/dL Bilirubin, Urine Negative Negative Urobilinogen, Urine 2.0 (A) <2.0 mg/dL Blood, Urine Negative Negative Nitrite, Urine Negative Negative Leukocyte Esterase, Urine Moderate (A) Negative WBCs, Urine 27 (H) 0 - 5 /hpf RBCs, Urine 3 0 - 3 /hpf Bacteria, Urine Few (A) None Seen /hpf Squamous Epithelial 19 (H) 0 - 4 /hpf Mucus, Urine Many (A) None Seen, Rare /lpf No orders to display ED Course / Medical Decision Making: Patient with nausea dizziness, will get lab work EKG give liter of fluids check coronavirus EKG 1044 normal sinus rhythm rate 92 QRS 84 QTc 462, no significant T wave inversions or ST changes Urine positive for infection remainder of lab work negative, did give liter fluid heart rate mildly improved. I suspect the patient has a urinary tract infection that is causing her symptoms. Her abdominal exam is unremarkable. I will give her dose of ceftriaxone discharged on Keflex. Follow-up outpatient physician EKG unremarkable, troponin negative, no signs of severe causes of syncope Clinical Impression: 1. Acute UTI 2. Lightheaded Carl Perez MD [facility] Emergency Department (Please note that portions of this note have been completed with a voice recognition software. Efforts were made to correct any errors, but occasionally words are mis-transcribed.) Carl Perez MD 01/12/20 1217 Special isolation precautions are in place with signage outside this patient's room. This RN performs hand hygiene and enters the patient room wearing: ? gloves ? an appropriately fitting (N-95, PAPR, Aura) mask ? face shield ? protective gown to provide nursing care. Special isolation precautions are in place with signage outside this patient's room. This RN and Nidia LUNA performs hand hygiene and enters the patient room wearing: ? gloves ? an appropriately fitting (N-95, PAPR, Aura) mask ? face shield ? protective gown to provide nursing care. See nursing documentation for the care provided. Patient presents to the emergency dept with intermittent fever, nausea and dizziness x 3 weeks. Patient reports her primary care doctor wanted her to evaluated today. Patient denies any new pain at this time. documented in this encounter [facility] EMERGENCY DEPARTMENT PCP - Marianela Fowler, CORPORATE CONSULTANT Please excuse grammar and misspelling secondary to Dragon dictation use Chief Complaint Patient presents with Dental Pain HPI Complaint severe tooth ache This is a 55-year-old diabetic female complaint of toothache for several days she states she has exposed nerve root been very painful using fimb-tuf-ihmeive medications without any relief. The patient denies any fever chills nausea or vomiting. Patient denies any cough or cold she has seen the dentist who told the patient that she cannot have any surgery on her tooth until her hemoglobin A1c is lower. Patient denies any other complaints pain is worse when she chews or attempts to eat. Nothing [id number] salve. MEDICAL DECISION MAKING This is a 55-year-old who presents here with severe tooth ache for a day or 2 she is taken multiple [id number] medication she has no severe abscess or severe infection. Patient is given 1 dose of hydrocodone Naprosyn penicillin. I will write the patient a prescription for viscous lidocaine penicillin recommend follow-up with her physician for acute odontalgia possible dental infection. . No results found for this visit on 09/30/20. Radiographic Imaging (if any) During ED Visit All Radiographic Imaging (if any) were read by Radiologist and reviewed and viewed by myself I have also reviewed narcotic score prior to giving any narcotic pain medications No orders to display Medications Ordered/Given During ED Visit Medications penicillin v potassium (VEETID) tablet 250 mg (has no administration in time range) HYDROcodone-acetaminophen (NORCO) 5-325 mg per tablet 1 tablet (has no administration in time range) naproxen (NAPROSYN) tablet 500 mg (has no administration in time range) Procedures Review of Systems Review of Systems Constitutional: Negative for fever. HENT: Positive for dental problem. Negative for hearing loss. Eyes: Negative for photophobia. Respiratory: Negative for cough and shortness of breath. Genitourinary: Negative for flank pain. Psychiatric/Behavioral: Negative for confusion. All systems reviewed negative except as mentioned above. Physical Exam Vital Signs During ED Visit (as charted by nursing) Patient Vitals for the past 24 hrs: BP Temp Pulse Resp SpO2 Height Weight 09/30/20 0518 (!) 172/89 97.6 F (36.4 C) 75 16 99 % 5' 4" 105.7 kg (233 lb) Physical Exam Constitutional: Appearance: She is obese. HENT: Head: Normocephalic and atraumatic. Nose: Nose normal. Mouth/Throat: Comments: Dental caries is noted no pus purulence or drainage. No significant gingivitis. Eyes: Pupils: Pupils are equal, round, and reactive to light. Neurological: Mental Status: She is alert and oriented to person, place, and time. Psychiatric: Mood and Affect: Mood normal. Past Medical History Past Medical History: Diagnosis Date Back pain L2,3,4,5 Chronic bronchitis (HCC) DDD (degenerative disc disease), lumbar Diabetes mellitus, type 2 (HCC) Diverticulitis 2001 Fibromyalgia, primary Hemorrhage 1991 surgery Herniated lumbar intervertebral disc L4-5 Hyperlipidemia Hypertension Neuropathy 10/17/91 Sciatica Sleep apnea Past Surgical History Past Surgical History: Procedure Laterality Date BONE MARROW BIOPSY W/ ASPIRATION 06/04/2018 ........Dr. Pat BREAST BIOPSY Left 10/12/2017 Stereo-proliferative fibrocystic changes and associated microcalcifications, focal pseudoangiomatous stromal hyperplasia CATARACT EXTRACTION, BILATERAL COLONOSCOPY 37 years old..Diverticulitis COLONOSCOPY 05/07/2017 diverticulosis, signle polyp in sigmoid, internal hermorrhoids...Dimitris DILATION AND CURETTAGE OF UTERUS for utreine bleeding LAMINECTOMY DISC ANTERIOR CERVICAL W/ FUSION MULTI LEVEL Bilateral 06/07/2020 Procedure: Anterior Cervical Discectomy and Fusion, C4-5 and C5-6; Surgeon: Jose Gallagher MD; Location: Main OR; Service: Neurological LUMBAR FUSION 10/19/2017 Family History Family History Problem Relation Age of Onset Lung cancer Father Heart failure Father Heart disease Father Diabetes Brother Heart disease Brother Bone cancer Maternal Grandmother Heart failure Maternal Grandmother Stroke Maternal Grandmother Cancer Half-Sister unknown cancer (mother in common) Heart disease Sister Diabetes Sister Mental illness Daughter Cancer Paternal Grandmother Social History Social History Socioeconomic History Marital status: Spouse name: Not on file Number of children: Not on file Years of education: Not on file Highest education level: Not on file Occupational History Not on file Social Needs Financial resource strain: Somewhat hard Food insecurity Worry: Sometimes true Inability: Sometimes true Transportation needs Medical: No Non-medical: Yes Tobacco Use Smoking status: Never Smoker Smokeless tobacco: Never Used Substance and Sexual Activity Alcohol use: No Drug use: No Sexual activity: Not Currently Lifestyle Physical activity Days per week: Not on file Minutes per session: Not on file Stress: Not on file Relationships Social connections Talks on phone: Three times a week Gets together: Once a week Attends religion service: Not on file Active member of club or organization: Not on file Attends meetings of clubs or organizations: Not on file Relationship status: Not on file Other Topics Concern Not on file Social History Narrative Not on file Allergies Allergies Allergen Reactions Latex Rash Medications Patient's Medications New Prescriptions No medications on file Previous Medications ALCOHOL PREP PADS PADM Use as directed 4x daily. DX code E11.65 . ASPIRIN 81 MG EC TABLET Take 81 mg by mouth daily. ATORVASTATIN (LIPITOR) 40 MG TABLET Take 1 (one) tablet (40 mg total) by mouth at bedtime . BLOOD PRESSURE MONITOR (BLOOD PRESSURE KIT) KIT To monitor blood pressure twice daily . BLOOD SUGAR DIAGNOSTIC (GLUCOSE BLOOD) STRIPS To check blood sugar four times daily E11.65 . BLOOD-GLUCOSE METER MISC To check Blood sugar 4 times daily E11.65 . DULOXETINE (CYMBALTA) 60 MG CAPSULE Take 1 (one) capsule (60 mg total) by mouth daily . GABAPENTIN (NEURONTIN) 600 MG TABLET Take 1 (one) tablet (600 mg total) by mouth 3 (three) times a day . GLIMEPIRIDE (AMARYL) 2 MG TABLET Take 1 tablet PO BID . INSULIN ASPART U-100 (NOVOLOG U-100 INSULIN ASPART) 100 UNIT/ML INJECTION Inject 26 (twenty six) Units under the skin 3 (three) times a day before meals . INSULIN GLARGINE (LANTUS SOLOSTAR U-100 INSULIN) 100 UNIT/ML (3 ML) INPN Take 55units every evening at bedtime . INSULIN SYRINGE-NEEDLE U-100 (SURE COMFORT INSULIN SYRINGE) 0.3 ML 31 GAUGE X 5/16" SYRG Use as directed 4 times daily, Dx E11.65 . LANCETS (ACCU-CHEK FASTCLIX LANCET DRUM) [facility] Dg code E11.65 Use as directed 4 times daily . LIRAGLUTIDE (VICTOZA 2-PUMA) 0.6 MG/0.1 ML (18 MG/3 ML) PEN Inject 1.8 mg under the skin once daily . LISINOPRIL (PRINIVIL,ZESTRIL) 20 MG TABLET Take 1 (one) tablet (20 mg total) by mouth daily . METOCLOPRAMIDE (REGLAN) 10 MG TABLET TAKE ONE TABLET BY MOUTH FOUR TIMES DAILY WITH MEALS AND EVERY NIGHT METOPROLOL TARTRATE (LOPRESSOR) 25 MG TABLET Take 1 (one) tablet (25 mg total) by mouth 2 (two) times a day . NYSTATIN (MYCOSTATIN) OINTMENT Apply topically 2 (two) times a day . PANTOPRAZOLE (PROTONIX) 40 MG TABLET TAKE ONE TABLET BY MOUTH ONCE DAILY PEN NEEDLE, DIABETIC 31 GAUGE X 5/16" NDLE Use as directed for insulin adm. Insulin and Victoza . Modified Medications No medications on file Discontinued Medications No medications on file Brian Garcia MD 09/30/20 0613 FRONT DENTAL PAIN, STATED IS A BUSTED TOOTH WITH A NERVE THAT IS OUT, AND HAS TRIED ORAGEL AND MOUTHWASH PRESCRIPTION, AND IT HURTS. Bed: 09 Expected date: Expected time: Means of arrival: Comments: Runner needed documented in this encounter ED Physician Note: NAME: Juana Handy 55 y.o. CSN: [id number] PCP: Marianela Fowler CNP ED Course / Medical Decision Making: She will be discharged home. Patient has likely Covid pneumonia. She is satting well on room air. X-ray shows likely subtle changes of Covid pneumonia. Patient has had 3 days of symptoms. Patient has known type II diabetes. She is a candidate for monoclonal antibody therapy. She was referred as an outpatient. As she has elevated sugar and she is not requiring oxygen, therefore steroids were held. Patient has a sugar of 300 with known diabetes not DKA. We will give some IV fluids as the urine is concentrated without ketones. Patient has UTI. Patient will be given a biotics for 7 days for this. Patient will be discharged home for the above with symptomatic care and follow-up as discussed. She clearly understands her discharge instructions. She is return for issues as discussed . Clinical Impression: 1. Pneumonia due to COVID-19 virus 2. Acute UTI 3. Hyperglycemia Disposition: Patient is being discharged to home New Prescriptions cephALEXin (KEFLEX) 500 MG capsule Take 1 (one) capsule (500 mg total) by mouth 2 (two) times a day for 7 days . benzonatate (TESSALON) 100 MG capsule Take 1 (one) capsule (100 mg total) by mouth 3 (three) times a day as needed for cough . albuterol (Ventolin HFA) 90 mcg/actuation inhaler Inhale 2 (two) puffs every 6 (six) hours as needed for wheezing . History: Chief Complaint: Shortness of Breath HPI: The history was obtained from the patient. She is a 55 y.o. female who presents with a chief complaint of Shortness of Breath. HPI patient presents with concerns of shortness of breath. Patient has a nonproductive cough. Has associated chest pain with coughing. Has subjective fever and chills. Has diffuse body aches and fatigue. Has runny nose and congestion. Patient has had positive Covid exposure. Symptoms started several days ago gradually have gotten progressively worse. No treatment prior to arrival PMHx: Past Medical History: Diagnosis Date Back pain L2,3,4,5 Chronic bronchitis (HCC) DDD (degenerative disc disease), lumbar Diabetes mellitus, type 2 (HCC) Diverticulitis 2001 Fibromyalgia, primary Hemorrhage 1991 surgery Herniated lumbar intervertebral disc L4-5 Hyperlipidemia Hypertension Neuropathy 10/17/91 Sciatica Sleep apnea PMSx: Past Surgical History: Procedure Laterality Date BONE MARROW BIOPSY W/ ASPIRATION 06/04/2018 ........Dr. aPt BREAST BIOPSY Left 10/12/2017 Stereo-proliferative fibrocystic changes and associated microcalcifications, focal pseudoangiomatous stromal hyperplasia CATARACT EXTRACTION, BILATERAL COLONOSCOPY 37 years old..Diverticulitis COLONOSCOPY 05/07/2017 diverticulosis, signle polyp in sigmoid, internal hermorrhoids...Dimitris DILATION AND CURETTAGE OF UTERUS for utreine bleeding LAMINECTOMY DISC ANTERIOR CERVICAL W/ FUSION MULTI LEVEL Bilateral 06/07/2020 Procedure: Anterior Cervical Discectomy and Fusion, C4-5 and C5-6; Surgeon: Jose Gallagher MD; Location: Main OR; Service: Neurological LUMBAR FUSION 10/19/2017 FAM. Hx: Family History Problem Relation Age of Onset Lung cancer Father Heart failure Father Heart disease Father Diabetes Brother Heart disease Brother Bone cancer Maternal Grandmother Heart failure Maternal Grandmother Stroke Maternal Grandmother Cancer Half-Sister unknown cancer (mother in common) Heart disease Sister Diabetes Sister Mental illness Daughter Cancer Paternal Grandmother SOC. Hx: Social History Socioeconomic History Marital status: Spouse name: Not on file Number of children: Not on file Years of education: Not on file Highest education level: Not on file Occupational History Not on file Social Needs Financial resource strain: Somewhat hard Food insecurity Worry: Sometimes true Inability: Sometimes true Transportation needs Medical: No Non-medical: Yes Tobacco Use Smoking status: Never Smoker Smokeless tobacco: Never Used Substance and Sexual Activity Alcohol use: No Drug use: No Sexual activity: Not Currently Lifestyle Physical activity Days per week: Not on file Minutes per session: Not on file Stress: Not on file Relationships Social connections Talks on phone: Three times a week Gets together: Once a week Attends religion service: Not on file Active member of club or organization: Not on file Attends meetings of clubs or organizations: Not on file Relationship status: Not on file Other Topics Concern Not on file Social History Narrative Not on file MEDs: Previous Medications Medication Sig Alcohol Prep Pads PadM Use as directed 4x daily. DX code E11.65 . aspirin 81 MG EC tablet Take 81 mg by mouth daily. atorvastatin (LIPITOR) 40 MG tablet Take 1 (one) tablet (40 mg total) by mouth at bedtime . blood pressure monitor (Blood Pressure Kit) Kit To monitor blood pressure twice daily . blood sugar diagnostic (glucose blood) strips To check blood sugar four times daily E11.65 . blood-glucose meter Misc To check Blood sugar 4 times daily E11.65 . DULoxetine (CYMBALTA) 60 MG capsule Take 1 (one) capsule (60 mg total) by mouth daily . gabapentin (NEURONTIN) 600 MG tablet Take 1 (one) tablet (600 mg total) by mouth 3 (three) times a day . glimepiride (AMARYL) 2 MG tablet Take 1 tablet PO BID . insulin aspart U-100 (NovoLOG Flexpen U-100 Insulin) 100 unit/mL (3 mL) InPn Inject 30 (thirty) Units under the skin 3 (three) times a day before meals . insulin glargine (Lantus Solostar U-100 Insulin) 100 unit/mL (3 mL) InPn Take 55units every evening at bedtime . insulin syringe-needle U-100 (Sure Comfort Insulin Syringe) 0.3 mL 31 gauge x 5/16" Syrg Use as directed 4 times daily, Dx E11.65 . lancets (Accu-Chek Fastclix Lancet Drum) [facility] Dg code E11.65 Use as directed 4 times daily . lidocaine (lidocaine) 2 % Soln Applied on teeth were swish and spit every few hours may use cotton ball also for pain . liraglutide (Victoza 2-Puma) 0.6 mg/0.1 mL (18 mg/3 mL) Pen Inject 1.8 mg under the skin once daily . lisinopriL (PRINIVIL,ZESTRIL) 20 MG tablet Take 1 (one) tablet (20 mg total) by mouth daily . metoclopramide (REGLAN) 10 MG tablet TAKE ONE TABLET BY MOUTH FOUR TIMES DAILY WITH MEALS AND EVERY NIGHT metoprolol tartrate (LOPRESSOR) 25 MG tablet Take 1 (one) tablet (25 mg total) by mouth 2 (two) times a day . nystatin (MYCOSTATIN) ointment Apply topically 2 (two) times a day . pantoprazole (PROTONIX) 40 MG tablet TAKE ONE TABLET BY MOUTH ONCE DAILY pen needle, diabetic 31 gauge x 5/16" Ndle Use as directed for insulin adm. Insulin and Victoza . ALL: Allergies Allergen Reactions Latex Rash ROS: Review of Systems Constitutional: Positive for fatigue and fever. Negative for chills. HENT: Positive for congestion, rhinorrhea and sore throat. Eyes: Negative for pain and redness. Respiratory: Positive for cough and shortness of breath. Cardiovascular: Positive for chest pain. Negative for palpitations. Gastrointestinal: Negative for abdominal pain, constipation, diarrhea, nausea and vomiting. Genitourinary: Negative for difficulty urinating. Musculoskeletal: Negative for back pain, neck pain and neck stiffness. Skin: Negative for rash. Neurological: Positive for headaches. Negative for dizziness, syncope, weakness and light-headedness. All other systems reviewed and are negative. Positives and pertinent negatives as per HPI. All other systems were reviewed and are negative. Physical Exam: Patient Vitals for the past 24 hrs: BP Temp Temp src Pulse Resp SpO2 Height Weight 11/01/20 2200 (!) 143/69 90 98 % 11/01/20 2117 96 % 11/01/20 2114 139/80 98.8 F (37.1 C) Oral 89 18 5' 4" 105.7 kg (233 lb) Physical Exam Vitals signs and nursing note reviewed. Constitutional: General: She is not in acute distress. Appearance: Normal appearance. She is well-developed. She is not ill-appearing or diaphoretic. HENT: Head: Normocephalic and atraumatic. Eyes: Conjunctiva/sclera: Conjunctivae normal. Right eye: Right conjunctiva is not injected. Left eye: Left conjunctiva is not injected. Neck: Musculoskeletal: Normal range of motion and neck supple. Cardiovascular: Rate and Rhythm: Normal rate and regular rhythm. Pulses: Dorsalis pedis pulses are 2+ on the right side and 2+ on the left side. Heart sounds: Normal heart sounds. No murmur. No friction rub. No gallop. Comments: Feet are pink and warm with brisk cap refill Pulmonary: Effort: Pulmonary effort is normal. No respiratory distress. Breath sounds: Normal breath sounds. No decreased breath sounds, wheezing, rhonchi or rales. Comments: Has a dry cough in the room Abdominal: Palpations: Abdomen is not rigid. There is no pulsatile mass. Tenderness: There is no abdominal tenderness. There is no guarding or rebound. Negative signs include Solorio's sign. Musculoskeletal: Comments: No calf pain, redness, asymmetry or abnormal leg swelling. No palpable cords. Negative Homans sign. No signs of DVT. Skin: General: Skin is warm. Coloration: Skin is not pale. Neurological: Mental Status: She is alert and oriented to person, place, and time. Sensory: No sensory deficit. Laboratory & Radiological Imaging (if done): Labs Reviewed COVID-19/INFLUENZA A,B MOLECULAR - Abnormal; Notable for the following components: Result Value SARS-CoV-2 Detected (*) All other components within normal limits Narrative: This test was performed under the FDA's Emergency Use Authorization (EUA). Testing was performed using the Cecil Shayne SARS-CoV-2 RT-PCR & Influenza A/B Nucleic Acid Test on the Shay[employer] Kait[facility] System. This test has not been approved for use in asymptomatic patients and its performance in this patient population has not been evaluated. Negative results do not rule out the presence of SARS-CoV-2, influenza A, and/or influenza B. Fact sheets for the EUA can be found at the following links: For Healthcare Providers: https://www.fda.gov/media/896170/download For Patients: https://www.fda.gov/media/992198/download CHEM 7 - Abnormal; Notable for the following components: Sodium 134 (*) Glucose 332 (*) BUN/Creatinine Ratio 8.2 (*) Anion Gap 9 (*) All other components within normal limits Narrative: The eGFR should be used for monitoring renal function only and not for medication dosing. HEPATIC FUNCTION PANEL - Abnormal; Notable for the following components: Albumin 3.1 (*) All other components within normal limits URINALYSIS - Abnormal; Notable for the following components: Clarity, Urine Cloudy (*) Specific [place] 1.034 (*) Glucose, Urine >=500 (*) Blood, Urine Small (*) Leukocyte Esterase, Urine Large (*) WBCs, Urine >180 (*) RBCs, Urine 8 (*) Bacteria, Urine Many (*) WBC Clumps, Urine Rare (*) All other components within normal limits Narrative: Microscopic examination is performed on all urinalysis samples and only positive findings are reported. The test for blood on the chemical analytic portion of urinalysis may also be positive due to hemoglobinuria and myoglobinuria and if red blood cells are present they are quantified by microscopic examination. POC VENOUS BLOOD GAS PANEL-PULM - RALS - Abnormal; Notable for the following components: pCO2, Santosh 51.3 (*) pO2, Santosh 23 (*) Base Excess, Santosh 5.2 (*) HCO3, Santosh 31.5 (*) O2 Sat, Santosh 39.3 (*) All other components within normal limits NT PRO BNP - Normal Narrative: Pride Study Cut-offs Rule In: < /= 50 Years >450 pg/mL 51 Years - 75 Years >900 pg/mL 76 Years - 99 Years >1800 pg/mL Rule Out: All patients <300 pg/mL URINE AEROBIC CULTURE CBC AND DIFFERENTIAL Narrative: The following orders were created for panel order CBC w/ Diff. Procedure Abnormality Status --------- ------ CBC Auto Differential[[id number]] Final result Please view results for these tests on the individual orders. TROPONIN TROPONIN OBTAIN VENOUS BLOOD GASES AND PERFORM CBC WITH AUTO DIFFERENTIAL XR Chest 1 View Final Result Small hazy changes are seen in the bilateral lung bases, which may represent atelectatic changes versus small hazy infiltrates. Workstation ID: [id number] Procedures: Procedures Gayle Maravilla MD ED Physician [facility] Emergency Department (Please note that portions of this note have been completed with a voice recognition software. Efforts were made to correct any errors, but occasionally words are mis-transcribed.) Gayle Maravilla MD 11/01/20 2308 PATIENT STATES SHE HAS BEEN FEELING MORE SOB AND OVERALL "ILL FEELING" X2 DAYS, STATES SHE HAS PEOPLE THAT LIVE IN HER HOME WHO WERE RECENTLY DIAGNOSED WITH COVID documented in this encounter Jose Gallagher MD - 06/07/2020 7:28 AM Gabby Freeman CNP - 05/30/2020 3:00 PM EDT H&P Notes (unrecognized sect ion and content) INTERVAL HISTORY AND PHYSICAL Patient Name: Juana Handy Admit Date: MR #: [id number] : 1965 The H&P has been reviewed and the patient has been examined. I concur with the findings of the H&P. There are no significant changes. It is appropriate to proceed with the planned procedure. Jose Gallagher MD 06/07/2020 7:28 AM Assessment and Plan Type 2 diabetes mellitus without complication, with long-term current use of insulin (HCC) Patient states her blood sugars have been running high (200's). She was instructed to take her full dose of long acting insulin the night before surgery and to hold short acting insulin and oral diabetic medication day of surgery. Gastroesophageal reflux disease On protonix daily; instructed to take perioperatively. Essential hypertension Blood pressure is well controlled. She is instructed to continue metoprolol perioperatively and hold lisinopril day of surgery only. Chronic neck pain Anterior cervical discectomy scheduled for 04/30/[address] Gallagher. Preoperative examination, unspecified Patient has an RCRI score of 2, based on high risk surgery and type 2 diabetes with insulin usage. She denies any cardiovascular symptoms such as dyspnea on exertion or chest pain. EKG on independent exam today shows normal sinus rhythm. Patient is a high risk for obstructive sleep apnea based on preoperative screening exam, she has been diagnosed with sleep apnea and does use her CPAP. APFEL score is 3, this gives patient a 61% chance of PONV. Prophylactic antiemetics should be considered. Chief Complaint Patient presents with Pre-operative Medical Risk Stratification History of Present Illness Juana Handy is a 54-year-old female presenting for presurgical re- stratification for anterior cervical discectomy scheduled for 04/14/2020. She states she has had back and neck pain for many years, she is status post lumbar fusion surgery approximately 2 years ago. She is currently experiencing tingling down both arms. She has tried physical therapy and muscle relaxants and the pain is persistent. She had previously undergone work up for this procedure last month prior to surgery getting rescheduled. During that time, an 8mm upper lobe pulmonary nodule was noted on her chest xray. She is currently scheduled to have a PET scan for follow up on the nodule. She denies any associated symptoms. Please see below regarding status of active medical conditions and assessment and plan regarding details of preoperative medical risk stratification. Past Medical History: Diagnosis Date Back pain L2,3,4,5 Chronic bronchitis (HCC) DDD (degenerative disc disease), lumbar Diabetes mellitus, type 2 (HCC) Diverticulitis 2001 Fibromyalgia, primary Hemorrhage 1991 surgery Herniated lumbar intervertebral disc L4-5 Hyperlipidemia Hypertension Neuropathy 10/17/91 Sciatica Sleep apnea Past Medical History Pertinent Negatives: Diagnosis Date Noted Asthma 11/25/2017 BRCA positive 12/09/2018 Breast cancer (HCC) 12/09/2018 Breast cyst 12/09/2018 Breast injury 12/09/2018 Colon cancer (HCC) 12/09/2018 COPD (chronic obstructive pulmonary disease) (HCC) 11/25/2017 Endometrial cancer (HCC) 12/09/2018 Endometrial hyperplasia 12/09/2018 Endometrial hyperplasia with atypia 12/09/2018 Fibrocystic breast 12/09/2018 Hormone replacement therapy (postmenopausal) 12/09/2018 Inverted nipple 12/09/2018 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 Pat BREAST BIOPSY Left 10/12/2017 Stereo-proliferative fibrocystic changes and associated microcalcifications, focal pseudoangiomatous stromal hyperplasia CATARACT EXTRACTION, BILATERAL COLONOSCOPY 37 years old..Diverticulitis COLONOSCOPY 05/07/2017 diverticulosis, signle polyp in sigmoid, internal hermorrhoids...Dimitris DILATION AND CURETTAGE OF UTERUS for utreine bleeding LUMBAR FUSION 10/19/2017 Social History Tobacco Use Smoking status: Never Smoker Smokeless tobacco: Never Used Substance Use Topics Alcohol use: No Family History Problem Relation Age of Onset Lung cancer Father Heart failure Father Heart disease Father Diabetes Brother Heart disease Brother Bone cancer Maternal Grandmother Heart failure Maternal Grandmother Stroke Maternal Grandmother Cancer Half-Sister unknown cancer (mother in common) Heart disease Sister Diabetes Sister Mental illness Daughter Cancer Paternal Grandmother Prior to Admission medications Medication Sig Taking? Dose Freq aspirin 81 MG EC tablet Take 81 mg by mouth daily. Yes 81 mg, Oral, Daily atorvastatin (LIPITOR) 40 MG tablet Take 1 (one) tablet (40 mg total) by mouth at bedtime . Yes 40 mg, Oral, At bedtime DULoxetine (CYMBALTA) 60 MG capsule Take 1 (one) capsule (60 mg total) by mouth daily . Yes 60 mg, Oral, Daily gabapentin (NEURONTIN) 600 MG tablet Take 1 (one) tablet (600 mg total) by mouth 3 (three) times a day . Yes 600 mg, Oral, 3 times daily glimepiride (AMARYL) 2 MG tablet Take 1 tablet PO BID . Yes Take 1 tablet PO BID insulin glargine (Basaglar KwikPen U-100 Insulin) 100 unit/mL (3 mL) InPn Use nightly as directed, approx 50 units . Yes Use nightly as directed, approx 50 units lisinopril (PRINIVIL,ZESTRIL) 20 MG tablet Take 1 (one) tablet (20 mg total) by mouth daily . Yes 20 mg, Oral, Daily meloxicam (MOBIC) 15 MG tablet TAKE ONE TABLET BY MOUTH ONCE DAILY Yes TAKE ONE TABLET BY MOUTH ONCE DAILY metoclopramide (REGLAN) 10 MG tablet TAKE ONE TABLET BY MOUTH FOUR TIMES DAILY WITH MEALS AND EVERY NIGHT Yes TAKE ONE TABLET BY MOUTH FOUR TIMES DAILY WITH MEALS AND EVERY NIGHT metoprolol tartrate (LOPRESSOR) 25 MG tablet Take 1 (one) tablet (25 mg total) by mouth 2 (two) times a day . Yes 25 mg, Oral, 2 times daily nystatin (MYCOSTATIN) ointment Apply topically 2 (two) times a day . Yes Topical, 2 times daily pantoprazole (PROTONIX) 40 MG tablet TAKE ONE TABLET BY MOUTH ONCE DAILY Yes TAKE ONE TABLET BY MOUTH ONCE DAILY Victoza 2-Puma 0.6 mg/0.1 mL (18 mg/3 mL) Pen INJECT 1.2 MG SUBCUTANEOUSLY DAILY Yes INJECT 1.2 MG SUBCUTANEOUSLY DAILY Alcohol Prep Pads PadM Use as directed 4x daily. DX code E11.65 . Use as directed 4x daily. DX code E11.65 blood pressure monitor (Blood Pressure Kit) Kit To monitor blood pressure twice daily . To monitor blood pressure twice daily blood-glucose meter (TRUE METRIX GLUCOSE METER) [facility] Use to check BG 3x daily. DX code E11.65 Needs True Metrix Meter . Use to check BG 3x daily. DX code E11.65 Needs True Metrix Meter insulin lispro (HumaLOG) 100 unit/mL injection Inject 26 (twenty six) Units under the skin 3 (three) times a day before meals . 26 Units, Subcutaneous, 3 times daily before meals insulin syringe-needle U-100 (Sure Comfort Insulin Syringe) 0.3 mL 31 gauge x 5/16" Syrg Use as directed 4 times daily, Dx E11.65 . Use as directed 4 times daily, Dx E11.65 lancets 33 gauge [facility] USE TO TEST FOUR TIMES DAILY - TruePlus Ultra thing 30g . USE TO TEST FOUR TIMES DAILY - TruePlus Ultra thing 30g pen needle, diabetic 31 gauge x 5/16" Ndle Use as directed for insulin adm. Insulin and Victoza . Use as directed for insulin adm. Insulin and Victoza True Metrix Glucose Test Strip strips To test three times a day. DX code E11.65 . To test three times a day. DX code E11.65 Allergies Allergen Reactions Latex Rash Review of Systems Constitution: (negative) HENT: (negative) Eyes: (negative) Respiratory: (negative) Cardiovascular: (negative) - Exercise capacity: Greater than 4 METS Gastrointestinal: (negative) Genitourinary: (negative) Musculoskeletal: (negative) - Back pain Skin: (negative) Neurological: (negative) Hematological: (negative) Physical Exam BP 119/85 Pulse 64 Ht 5' 4" Wt 106.6 kg (235 lb) SpO2 94% BMI 40.34 kg/m Data Preprocedure Sleep Apnea Assessment - High Risk (11/14) Sleep Apnea in the patient's Active Problem List or Medical History: yes 1. History of apparent airway obstruction during sleep: (1 point for this category) Do you snore frequently, or snore loud enough to be heard through a closed door?: yes Do you awaken from sleep with a choking sensation or have periods during sleep when someone has observed you pausing between breaths?: yes 2. Somnolence of the patient: (1 point for this category) Do you find yourself frequently sleepy despite adequate hours of "sleep" the night before?: yes Do you fall asleep easily while: watching TV, reading, riding in or driving a car?: yes 3. Predisposing physician characteristics: (1 point for this category, 2 points if the BMI ? 40) BMI (Calculated): 40.3 Neck Circumference (inches): 14.5 inches Recent Results (from the past 77068 hours) NM MYOCARDIAL PERFUSION SINGLE - STRESS ONLY 11/25/2017 (Final) Status: Normal Narrative Nuclear Report Patient: OLE ARIAS V [facility] Rec#: [id number] (Age): 1965(52y) Height: 162.6(cm)/63(in Study Date: 11/25/2017 Weight: 114.3(kg)/251(l Room#: BSA: 2.16 Type: Outpatient Loc: Sex: F Indications: -Chest pain, unspecified 786.50 - Checklists: -Patient verbally identified self -Patient consent obtained in lab -Procedure verified and explained to patient -Medication Reconciliation completed. -Discharge instructions given Nuclear Cardiology Conclusion: Overall intermediate-risk study based on SCAI criteria (1-3% predicted annual cardiac mortality). Normal stress regadenoson myocardial perfusion study. Normal LV size. Global left ventricular systolic function was normal, with an EF of 64%. Stress ECG Conclusion: Normal pharmacologic Regadenoson Stress Test with no ECG changes consistent with ischemia. HR Response to stress: normal BP response to stress: normal The patient experienced no chest pain. The test was terminated due to completion of vasodilator infusion. Baseline ECG: Normal ECG. Pharmacologic Protocol: - Regadenoson 0.4mg IV Bolus was given over 10-20 seconds. - Tolerated Medication Infusion. Stress ECG : No ST-segment depression under pharmacologic stress. Recovery ECG: No significant ST changes. No chest pain. Rare PVC. Normal blood pressure response. Hemodynamics REST STRESS RECOVERY SBP 146 mmHg 172 mmHg 145 mmHg DBP 87 mmHg 81 mmHg 84 mmHg HR 62 bpm 85 bpm 70 bpm %MPHR 50 % Imaging Protocol: This was a gated SPECT myocardial perfusion imaging study. A stress only imaging protocol was followed using Tc-99m tetrofosmin ([employer]) injected intravenously. For the stress portion of the study, 11 mCi was administered at 11/25/2017 09:06:47. Stress imaging was performed at 10:10:00. Perfusion Interpretation: Stress nuclear myocardial perfusion imaging was normal. No rest imaging was performed. The stress nuclear myocardial perfusion imaging was normal. No resting imaging was performed. Wall Motion Interpretation: The patient's calculated post stress LVEF was 64%. Gated imaging under post-stress conditions demonstrated normal wall motion. Nuclear Doctor Interpreted Study and Electronically signed at 11/25/2017 11:44:22 by: Kristin Nieto MD, RVPI Recent Results (from the past 73337 hours) XR CHEST AP/PA AND LAT 04/27/2020 (Final) Status: Normal Narrative EXAMINATION: XR CHEST AP/PA AND LAT HISTORY: ORDERING SYSTEM PROVIDED HISTORY: Preoperative testing, TECHNOLOGIST PROVIDED HISTORY: Illness/Other Reason for exam: pre op Cancer History: u Surgery, RadiationHistory: u Encounter Type: Initial Additional signs and symptoms: . ORDERING SYSTEM PROVIDED DIAGNOSIS CODES: Z01.818 Preoperative testing COMPARISON: 11/18/2017. FINDINGS: Two-view chest x-ray. 8 mm nodule projects over the left upper lobe. Lungs are otherwise clear. No pneumothorax. No significant pleural effusions. Heart is normal in size. Bony thorax is unremarkable. Impression 8 mm left upper lobe pulmonary nodule, seen retrospectively on 11/18/2017 and 12/10/2018 CTs. Recommend nonemergent chest CT follow-up. Lungs are otherwise clear. [employer] Workstation ID: [id number] documented in this encounter Nell Ontiveros MSW LSW - 06/11/2020 2:20 PM EDCarey Uriarte, OTR/L - 06/08/2020 3:57 PM EDRomy Martinez, PT - 06/08/2020 11:32 AM EDT Consult Notes (unrecognized section and content) Associated Order(s): IP CONSULT TO CARE MANAGEMENT Attempted to see patient on multiple occasions today but she was unavailable secondary to being with other staff members or out of her room. Patient has since discharged. rowan Webber, set the patient up with [facility] prior to discharge. Occupational Therapy OCCUPATIONAL THERAPY EVALUATION NOTE Skilled Therapy Needs After Discharge Are Skilled Therapy Services Needed After Discharge: No Outcomes Measures Prior Function Daily Activity: Raw Score: 22 Prior Function Daily Activity % Impaired: 25.80% functionally impaired AM-PAC Daily Activity: Raw Score: 20 AM-PAC Daily Activity % Impaired: 38.32% functionally impaired Occupational Therapy Assessment The patient's current functional participation deficits are LE dressing, home management, functional mobility, toileting, bathing. This reduced independence will limit their life roles of premorbid level individual, spouse, community member, family member. The patient's co morbidities do affect patient performance in the above activities and roles. The performance deficits are a result of musculoskeletal, neurological impairment(s) in spine including acitvity tolerance, respiratory capacity, pain, , and . 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 The patient's compliance is a service employee, awareness of own capacity and performance is a service employee to return to prior level of function. During the assessment, minimal to moderate modification of task was required and limited treatment options were identified in the plan of care. This consultation required brief review of the medical and therapy history. Activity Tolerance Activity Tolerance: Tolerates 10 - 20 min activity with multiple rests Therapy Precautions Orthotic Devices: Yes Spine / Trunk: Cervical Collar Weight Bearing Status: WFL General Rehab Precautions: Fall risk Cognition Overall Cognitive Status: Within Functional Limits Arousal/Alertness: Appropriate responses to stimuli Orientation Level: Oriented X4 Executive functioning: Insight Safety Judgment: Good awareness of safety precautions Attention: Attends to quiet environment Hearing Status: WFL Social Interaction: WFL ADL/IADL Feeding: Independent Grooming : Modified independence LE Dressing: Min Toileting : Supervision Skilled Intervention: Patient was instructed in use of AE for LB dressing. Was able to perform tasks with AE. AE was provided for use at home. 1 selfcare unit. Bed Mobility Rolling: Stand by assistance Supine to Sit: Stand by assistance Functional Transfers Sit to Stand: Stand by assistance Toilet Transfers: Supervision Skilled Intervention: Walked with ww from bed to toilet to sink to bed. Mild lightheadedness which lessened. Exercise BUE WFL Interventions Home Living Type of Home: House Home Layout: Two level, Able to live on main level with bedroom/bathroom, Stairs to enter with rails(1STE) Bathroom Shower/Tub: Tub/shower unit Bathroom Toilet: Standard Bathroom Equipment: Shower chair Bathroom Accessibility: Accessible via walker Additional Comments: Uses sink to push up from toilet. Patient was provided with a retail greeter, sockaid, and long shoe horn to use at home. Prior Level of Function Level of [place]: Needs assistance with ADLs, Needs assistance with homemaking Lives With: Daughter, Spouse Receives Help From: Family ADL Assistance: Needs assistance Bathing: (independent) Dressing: Moderate(for socks, pants, shoes) Grooming: (independent) Feeding: (independent) Homemaking Assistance: Needs assistance Vocational: Retired Comments: Patient does cooking, laundry, and light cleaning. Family able to assist. Past Medical History: Diagnosis Date Back pain L2,3,4,5 Chronic bronchitis (HCC) DDD (degenerative disc disease), lumbar Diabetes mellitus, type 2 (HCC) Diverticulitis 2001 Fibromyalgia, primary Hemorrhage 1991 surgery Herniated lumbar intervertebral disc L4-5 Hyperlipidemia Hypertension Neuropathy 10/17/91 Sciatica Sleep apnea Past Surgical History: Procedure Laterality Date BONE MARROW BIOPSY W/ ASPIRATION 06/04/2018 ........Dr. Pat BREAST BIOPSY Left 10/12/2017 Stereo-proliferative fibrocystic changes and associated microcalcifications, focal pseudoangiomatous stromal hyperplasia CATARACT EXTRACTION, BILATERAL COLONOSCOPY 37 years old..Diverticulitis COLONOSCOPY 05/07/2017 diverticulosis, signle polyp in sigmoid, internal hermorrhoids...Dimitris DILATION AND CURETTAGE OF UTERUS for utreine bleeding LAMINECTOMY DISC ANTERIOR CERVICAL W/ FUSION MULTI LEVEL Bilateral 06/07/2020 Procedure: Anterior Cervical Discectomy and Fusion, C4-5 and C5-6; Surgeon: Jose Gallagher MD; Location: Main OR; Service: Neurological LUMBAR FUSION 10/19/2017 For complete objective data, detailed plan of care and patient education refer to: OT EVALUATION flow sheet, OT TREATMENT flow sheet, patient Plan of Care, Plan of Care progress note, and Patient Education. This note stands as the current Discharge Summary upon patient discharge from the hospital or completion of Occupational Therapy Plan of Care. Physical Therapy PHYSICAL THERAPY EVALUATION NOTE Skilled Therapy Needs After Discharge Anticipate Resolution of Current Assessment Limitations Including: Social Support, Mechanical Barriers Are Skilled Therapy Services Needed After Discharge: Yes(per Dr. Gallagher, protocol and under his advice) Rehab Potential: Good Outcomes Measures Prior Function - Basic Mobility Raw Score: 22 Points Prior Function - Basic Mobility % Impaired: 16.55% functionally impaired AM-PAC - Basic Mobility Raw Score: 18 Points AM-PAC - Basic Mobility % Impaired: 40.47% functionally impaired Physical Therapy Assessment History: Juana Handy is a 54-year-old female presenting for presurgical re- stratification for anterior cervical discectomy scheduled for 04/14/2020. She states she has had back and neck pain for many years, she is status post lumbar fusion surgery approximately 2 years ago. She is currently experiencing tingling down both arms. She has tried physical therapy and muscle relaxants and the pain is persistent. She had previously undergone work up for this procedure last month prior to surgery getting rescheduled. During that time, an 8mm upper lobe pulmonary nodule was noted on her chest xray. She is currently scheduled to have a PET scan for follow up on the nodule. She denies any associated symptoms. The following factors influence the patient's participation in the PT plan of care: Personal Factors: Age, Apprehensive Toward Mobility, Limited Baseline Mobility, Limited Compliance Environmental Factors: Steps to enter home The following co-morbidities (from this admission or prior) influence the patient's participation in this plan of care: DDD, stenosis<HTN, DM, chronic neck pain Number of History elements affecting this patient's PT plan of care: 3 or more Examination of Body Systems: The patient presents with: Musculoskeletal impairments: Strength, Pain, ROM, Functional Endurance Neurologic Impairments: Balance Cardiopulmonary Impairments: Activity Tolerance Vascular Impairments: Edema Integumentary Impairments: Skin Integrity, Tissue Healing. These impairments result in limitations of Gait, Functional Transfers, Stair-Climbing, Safety, Safety Awareness, Activity Tolerance, Insight. These impairments result in restrictions of Household mobility, Community mobility, Leisure activities. Number of Body Systems elements affecting this patient's PT plan of care: 3 or more. Clinical Presentation: The patient's clinical presentation for this PT evaluation is evolving as evidenced by current PT documentation. Activity Tolerance Activity Tolerance: Tolerates 10 - 20 min activity with multiple rests Therapy Precautions Orthotic Devices: Yes Spine / Trunk: Cervical Collar General Rehab Precautions: Cervical Balance Sitting Balance - Static: Sits without support for more than 30 seconds Standing Balance - Static: Supports self with more than 50% effort using upper extremity, requires therapist assisstance(CGA) Bed Mobility Rolling: Min Supine to Sit: Min Sit to Supine: Min Transfers Sit to Stand: Contact guard Bed to Chair: Contact guard Multimedia Editor: Wheeled walker Gait/Locomotion Gait Assistance: Contact guard Assistive Device: Wheeled walker Distance: 15 Feet Pattern: Within Functional Limits Pt educated on precautions, discharge planning, and mobility through verbal instruction and demonstration. Pt demonstrated understanding of education and billed 1 unit therapeutic activity for education. Home Living Type of Home: House Home Layout: Two level, Able to live on main level with bedroom/bathroom, Stairs to enter with rails( 5 PAPO) Prior Level of Function Level of [place]: Independent with ADLs and functional transfers, Independent with homemaking with ambulation Lives With: Significant other, Daughter Receives Help From: Family ADL Assistance: Independent Past Medical History: Diagnosis Date Back pain L2,3,4,5 Chronic bronchitis (HCC) DDD (degenerative disc disease), lumbar Diabetes mellitus, type 2 (HCC) Diverticulitis 2001 Fibromyalgia, primary Hemorrhage 1991 surgery Herniated lumbar intervertebral disc L4-5 Hyperlipidemia Hypertension Neuropathy 10/17/91 Sciatica Sleep apnea Past Surgical History: Procedure Laterality Date BONE MARROW BIOPSY W/ ASPIRATION 06/04/2018 ........Dr. Pat BREAST BIOPSY Left 10/12/2017 Stereo-proliferative fibrocystic changes and associated microcalcifications, focal pseudoangiomatous stromal hyperplasia CATARACT EXTRACTION, BILATERAL COLONOSCOPY 37 years old..Diverticulitis COLONOSCOPY 05/07/2017 diverticulosis, signle polyp in sigmoid, internal hermorrhoids...Dimitris DILATION AND CURETTAGE OF UTERUS for utreine bleeding LUMBAR FUSION 10/19/2017 For complete objective data, detailed plan of care and patient education refer to: PT EVALUATION flow sheet, PT TREATMENT flow sheet, patient Plan of Care, Plan of Care progress note, and Patient Education. This note stands as the current Discharge Summary upon patient discharge from the hospital or completion of Physical Therapy Plan of Care. documented in this encounter Visit Details Home Health Visit - Care Manda n (unrecognized section and content) Visit Type -SALES REPRESENTATIVE UNIFORMS Routine Visi t Discipline -Physical Therapy Problems Problem Start Date Status Goals Interventions AP07- Decreased Knowledge of Home Safety Disciplines: Physical Therapy 06/15/2020 Active 1 goal linked to scheduled/documented intervention 1 goal intervention scheduled/documented in this visit AP09- Decreased Knowledge of Potential Complications Disciplines: Physical Therapy 06/15/2020 Active 1 goal linked to scheduled/documented intervention 1 goal intervention scheduled/documented in this visit Abnormal Findings Disciplines: Senior Care, Physical Therapy, Occupational Therapy, Speech Therapy, Home Health Aide, Medical Social Work, Spiritual Care, Art Therapy, Massage Therapy, Registered Dietitian, Student - Medical Social Work 06/12/2020 Active 1 goal linked to scheduled/documented intervention 1 goal intervention scheduled/documented in this visit PT13- Abnormal Posture Disciplines: Physical Therapy 06/15/2020 Active 1 goal linked to scheduled/documented intervention 1 goal intervention scheduled/documented in this visit PT14- Decreased Strength Disciplines: Physical Therapy 06/15/2020 Active 1 goal linked to scheduled/documented intervention 1 goal intervention scheduled/documented in this visit PT15- Decreased Motor Control/Coordination Disciplines: Physical Therapy 06/15/2020 Active 1 goal linked to scheduled/documented intervention 1 goal intervention scheduled/documented in this visit PT16- Decreased knowledge of Home Exercise Program Disciplines: Physical Therapy 06/15/2020 Active 1 goal linked to scheduled/documented intervention 1 goal intervention scheduled/documented in this visit PT19- Decreased Transfer Ability Disciplines: Physical Therapy 06/15/2020 Active 1 goal linked to scheduled/documented intervention 1 goal intervention scheduled/documented in this visit PT20- Decreased Ambulation Ability Disciplines: Physical Therapy 06/15/2020 Active 1 goal linked to scheduled/documented intervention 1 goal intervention scheduled/documented in this visit PT23- Decreased Home Exit/Entry Ability Disciplines: Physical Therapy 06/15/2020 Active 1 goal linked to scheduled/documented intervention 1 goal intervention scheduled/documented in this visit PT24- Decreased Balance/Increased Fall Risk Disciplines: Physical Therapy 06/15/2020 Active 1 goal linked to scheduled/documented intervention 1 goal intervention scheduled/documented in this visit PT25- Decreased Activity Tolerance Disciplines: Physical Therapy 06/15/2020 Active 1 goal linked to scheduled/documented intervention 1 goal intervention scheduled/documented in this visit Risk of Falls Disciplines: Senior Care, Physical Therapy, Occupational Therapy, Speech Therapy, Home Health Aide, Medical Social Work, Spiritual Care, Art Therapy, Massage Therapy, Registered Dietitian, Student - Medical Social Work 06/12/2020 Active 1 goal linked to scheduled/documented intervention 1 goal intervention scheduled/documented in this visit Goals Goal Associated Problem Outcome Goal Met? Visit Notes Home safety/fall prevention education goal AP07- Decreased Knowledge of Home Safety No Potential complication education goal AP09- Decreased Knowledge of Potential Complications No Assessment findings goal Abnormal Findings No Posture PT neuro goal PT13- Abnormal Posture No Strength PT Neuro goal PT14- Decreased Strength No Motor control/coordination goal PT15- Decreased Motor Control/Coordination No HEP education goal PT16- Decreased knowledge of Home Exercise Program No Improve transfer goal PT19- Decreased Transfer Ability No Ambulation PT Neuro goal PT20- Decreased Ambulation Ability No Home exit/entry PT Neuro goal PT23- Decreased Home Exit/Entry Ability No Balance/Fall risk PT Neuro goal PT24- Decreased Balance/Increased Fall Risk No Activity tolerance PT Neuro goal PT25- Decreased Activity Tolerance No Balance/Fall risk goal Risk of Falls No Interventions Intervention Associated Problem/Goal Status Variance Visit Notes Assess/Instruct in home safety/fall prevention strategies Problem:AP07- Decreased Knowledge of Home Safety Goal:Home safety/fall prevention education goal Completed Assess/Instruct in potential complications (ie: PE, DVT, infection) and appropriate response Problem:AP09- Decreased Knowledge of Potential Complications Goal:Potential complication education goal Completed Report abnormal assessment to physician Problem:Abnormal Findings Goal:Assessment findings goal Completed Assess/Instruct in techniques for postural corretion/positioning Problem:PT13- Abnormal Posture Goal:Posture PT neuro goal Completed Therapist provided verbal and tactile cueing for proper posture to improve ability to maintain good spinal alignment during ADL's. PT muscle re-education Problem:PT14- Decreased Strength Goal:Strength PT Neuro goal Completed held per pt request d/t hypertension. OT was at pt home prior to SALES REPRESENTATIVE [employer]IFORMS visit and will contact MD re: hypertension Assess/Instruct in therapeutic techniques to normalize/maximize motor control coordination Problem:PT15- Decreased Motor Control/Coordination Goal:Motor control/coordination goal Completed not tested PT establish or upgrade home program Problem:PT16- Decreased knowledge of Home Exercise Program Goal:HEP education goal Completed Therapist reviewed HEP c pt c good recall. PT transfer training Problem:PT19- Decreased Transfer Ability Goal:Improve transfer goal Completed not today per pt request Assess/Instruct in safe gait techniques in home. Problem:PT20- Decreased Ambulation Ability Goal:Ambulation PT Neuro goal Completed pt amb c fww and sba x100' c fair heel to toe gait pattern but no minimal fatigue noted c prgm. Assess/Instruct in safe home exit/entry and community prepared mobility techniques Problem:PT23- Decreased Home Exit/Entry Ability Goal:Home exit/entry PT Neuro goal Completed not today Assess/Instruct in balance and fall prevention techniques Problem:PT24- Decreased Balance/Increased Fall Risk Goal:Balance/Fall risk PT Neuro goal Completed Pt educated in fall prevention measures to avoid falls and re-injury. Assess/Instruct in safe activity progression Problem:PT25- Decreased Activity Tolerance Goal:Activity tolerance PT Neuro goal Completed Pt educated on safe activity progression to maximize rehab potential while staying safe and avoiding falls. Instruct on fall prevention Problem:Risk of Falls Goal:Balance/Fall risk goal Completed Visit Details Visit Type -STOCK CONTROL CLERK [facility] Routine Discipline -Senior Care Problems Problem Start Date Status Goals Interventions Abnormal Findings Disciplines: Senior Care, Physical Therapy, Occupational Therapy, Speech Therapy, Home Health Aide, Medical Social Work, Spiritual Care, Art Therapy, Massage Therapy, Registered Dietitian, Student - Medical Social Work 06/12/2020 Active 1 goal linked to scheduled/documented intervention 1 goal intervention scheduled/documented in this visit Home Medication Management Disciplines: Senior Care 06/12/2020 Active 1 goal linked to scheduled/documented intervention 2 goal interventions scheduled/documented in this visit Learning/Teaching Needs- Elimination Disciplines: Senior Care 06/12/2020 Active 1 goal linked to scheduled/documented intervention 2 goal interventions scheduled/documented in this visit Need to mobilize secretions Disciplines: Senior Care 06/12/2020 Active 1 goal linked to scheduled/documented intervention 2 goal interventions scheduled/documented in this visit Nutritional concerns Disciplines: Senior Care 06/12/2020 Active 1 goal linked to scheduled/documented intervention 2 goal interventions scheduled/documented in this visit Physical Discomfort - Pressure Ulcer Disciplines: Senior Care 06/12/2020 Active 1 goal linked to scheduled/documented intervention 1 goal intervention scheduled/documented in this visit Post-op care Disciplines: Senior Care 06/12/2020 Active 1 goal linked to scheduled/documented intervention 2 goal interventions scheduled/documented in this visit Risk of Falls Disciplines: Senior Care, Physical Therapy, Occupational Therapy, Speech Therapy, Home Health Aide, Medical Social Work, Spiritual Care, Art Therapy, Massage Therapy, Registered Dietitian, Student - Medical Social Work 06/12/2020 Active 1 goal linked to scheduled/documented intervention 1 goal intervention scheduled/documented in this visit Skilled Assessment Disciplines: Senior Care 06/12/2020 Active 1 goal linked to scheduled/documented intervention 3 goal interventions scheduled/documented in this visit Goals Goal Associated Problem Outcome Goal Met? Visit Notes Assessment findings goal Abnormal Findings No Medication management goal Home Medication Management No Elimination education goal Learning/Teaching Needs- Elimination No Secretions goal Need to mobilize secretions No Nutrition goal Nutritional concerns No Pain management goal Physical Discomfort - Pressure Ulcer No Post-op care goal Post-op care No Balance/Fall risk goal Risk of Falls No Rehospitalization goal Skilled Assessment No Interventions Intervention Associated Problem/Goal Status Variance Visit Notes Report abnormal assessment to physician Problem:Abnormal Findings Goal:Assessment findings goal Completed Instruct on high risk medications Problem:Home Medication Management Goal:Medication management goal Completed Review and identify unnecessary therapeutic duplication; cardiovascular medication problems related to dizziness; continued hyper/hypotension or low pulse; falls, dizziness, or confusion; and inappropriate use of non-steroidal anti-inflammatory drugs (NSAIDs). Teach medication management Problem:Home Medication Management Goal:Medication management goal Completed Home medication management reviewed with Patient. Patient verbalizes ability to perform safe home medication administration. Instruct on constipation prevention Problem:Learning/Teac jodie Needs- Elimination Goal:Elimination education goal Completed Instruct on the management of diarrhea Problem:Learning/Teac jodie Needs- Elimination Goal:Elimination education goal Completed Instruct breathing techniques Problem:Need to mobilize secretions Goal:Secretions goal Completed Patient instructed in deep-breathing and coughing exercises, pursed-lip and abdominal breathing, and positioning for optimal breathing pattern. Patient verbalizes ability to perform exercises as instructed. Instruct in use of incentive spirometry Problem:Need to mobilize secretions Goal:Secretions goal Completed Instruct on the prevention of nausea/vomiting Problem:Nutritional concerns Goal:Nutrition goal Completed Skilled assessment nutrition Problem:Nutritional concerns Goal:Nutrition goal Completed Instruct on pain management techniques Problem:Physical Discomfort - Pressure Ulcer Goal:Pain management goal Completed Instruct Patient on medications and alternative strategies to relieve pain. Instruct on the signs and symptoms of infection Problem:Post-op care Goal:Post-op care goal Completed Instruct Patient in strategies to prevent infection:frequent/pro per hand-washing techniques, Standard precautions, avoid crowds and persons with known infections, staying current with immunizations, s/s of infection, use of incentive spirometer, use of antibiotics and encourage adequate diet and fluid intake. Wound care Problem:Post-op care Goal:Post-op care goal Completed Steri Strips intact Instruct on fall prevention Problem:Risk of Falls Goal:Balance/Fall risk goal Completed Obtain pulse oximetry Problem:Skilled Assessment Goal:Rehospitalizatio n goal Completed Skilled observation and assessment general assessment Problem:Skilled Assessment Goal:Rehospitalizatio n goal Completed SN to perform general assessment to include height, weight, vital signs, and temperature; General assessment of systems: pulmonary, cardiovascular, neurologic, gastrointestinal, endocrine, hematologic, musculoskeletal, renal/urinary, integumentary and psychosocial/psychiatr ic/mental and report any abnormalities or concerns to the physician. Teaching - disease process Problem:Skilled Assessment Goal:Rehospitalizatio n goal Completed Visit Details Visit Type -SN HH Routine Vi sit Discipline -Senior Care Interventions Intervention Associated Problem/Goal Status Variance Visit Notes Report abnormal assessment to physician Problem:Abnormal Findings Goal:Assessment findings goal Completed Instruct on high risk medications Problem:Home Medication Management Goal:Medication management goal Completed Review and identify unnecessary therapeutic duplication; cardiovascular medication problems related to dizziness; continued hyper/hypotension or low pulse; falls, dizziness, or confusion; and inappropriate use of non-steroidal anti-inflammatory drugs (NSAIDs). Teach medication management Problem:Home Medication Management Goal:Medication management goal Completed Home medication management reviewed with Patient and Caregiver. Patient and Caregiver verbalizes ability to perform safe home medication administration. Instruct on constipation prevention Problem:Learning/Teac jodie Needs- Elimination Goal:Elimination education goal Completed Instruct on the management of diarrhea Problem:Learning/Teac jodie Needs- Elimination Goal:Elimination education goal Completed Instruct breathing techniques Problem:Need to mobilize secretions Goal:Secretions goal Completed Patient and Caregiver instructed in deep-breathing and coughing exercises, pursed-lip and abdominal breathing, and positioning for optimal breathing pattern. Patient and Caregiver verbalizes ability to perform deep breathing and coughing. Instruct in use of incentive spirometry Problem:Need to mobilize secretions Goal:Secretions goal Completed Instruct on the prevention of nausea/vomiting Problem:Nutritional concerns Goal:Nutrition goal Completed Skilled assessment nutrition Problem:Nutritional concerns Goal:Nutrition goal Completed Instruct on pain management techniques Problem:Physical Discomfort - Pressure Ulcer Goal:Pain management goal Completed Instruct Patient and Caregiver on medications and alternative strategies to relieve pain. Instruct on the signs and symptoms of infection Problem:Post-op care Goal:Post-op care goal Completed Instruct Patient and Caregiver in strategies to prevent infection:frequent/pro per hand-washing techniques, Standard precautions, avoid crowds and persons with known infections, staying current with immunizations, s/s of infection, use of incentive spirometer, use of antibiotics and encourage adequate diet and fluid intake. Wound care Problem:Post-op care Goal:Post-op care goal Completed steri strips intact to neck incision. Instruct on fall prevention Problem:Risk of Falls Goal:Balance/Fall risk goal Completed Obtain pulse oximetry Problem:Skilled Assessment Goal:Rehospitalizatio n goal Completed Skilled observation and assessment general assessment Problem:Skilled Assessment Goal:Rehospitalizatio n goal Completed SN to perform general assessment to include height, weight, vital signs, and temperature; General assessment of systems: pulmonary , integumentary, GI,, cardiac and report any abnormalities or concerns to the physician. Teaching - disease process Problem:Skilled Assessment Goal:Rehospitalizatio n goal Completed Visit Details Visit Type -[facility] Care Discipline -Senior Care Interventions Intervention Associated Problem/Goal Status Variance Visit Notes Report abnormal assessment to physician Problem:Abnormal Findings Goal:Assessment findings goal Completed Instruct on high risk medications Problem:Home Medication Management Goal:Medication management goal Completed Review and identify unnecessary therapeutic duplication; cardiovascular medication problems related to dizziness; continued hyper/hypotension or low pulse; falls, dizziness, or confusion; and inappropriate use of non-steroidal anti-inflammatory drugs (NSAIDs). Teach medication management Problem:Home Medication Management Goal:Medication management goal Completed Home medication management instructed with Patient and Caregiver. Patient and Caregiver verbalize knowledge of disease process, causative factors, complication, and management related to. Instruct on constipation prevention Problem:Learning/Teac jodie Needs- Elimination Goal:Elimination education goal Completed Instruct on the management of diarrhea Problem:Learning/Teac jodie Needs- Elimination Goal:Elimination education goal Completed Instruct breathing techniques Problem:Need to mobilize secretions Goal:Secretions goal Completed Patient and Caregiver instructed in deep-breathing and coughing exercises, pursed-lip and abdominal breathing, and positioning for optimal breathing pattern. Patient and Caregiver verbalize knowledge of disease process, causative factors, complication, and management related to. Instruct in use of incentive spirometry Problem:Need to mobilize secretions Goal:Secretions goal Completed Instruct on the prevention of nausea/vomiting Problem:Nutritional concerns Goal:Nutrition goal Completed Skilled assessment nutrition Problem:Nutritional concerns Goal:Nutrition goal Completed Instruct on pain management techniques Problem:Physical Discomfort - Pressure Ulcer Goal:Pain management goal Completed Instruct Patient and Caregiver on medications and alternative strategies to relieve pain. Instruct on the signs and symptoms of infection Problem:Post-op care Goal:Post-op care goal Completed Instruct Patient and Caregiver in strategies to prevent infection:frequent/pro per hand-washing techniques, Standard precautions, avoid crowds and persons with known infections, staying current with immunizations, s/s of infection, use of incentive spirometer, use of antibiotics and encourage adequate diet and fluid intake. Wound care Problem:Post-op care Goal:Post-op care goal Completed no wound care at visit Instruct on fall prevention Problem:Risk of Falls Goal:Balance/Fall risk goal Completed Obtain pulse oximetry Problem:Skilled Assessment Goal:Rehospitalizatio n goal Completed Skilled observation and assessment general assessment Problem:Skilled Assessment Goal:Rehospitalizatio n goal Completed SN to perform general assessment to include height, weight, vital signs, and temperature; General assessment of systems: pulmonary, cardiovascular, neurologic, gastrointestinal, endocrine, hematologic, musculoskeletal, renal/urinary, integumentary and psychosocial/psychiatr ic/mental and report any abnormalities or concerns to the physician. Teaching - disease process Problem:Skilled Assessment Goal:Rehospitalizatio n goal Completed Visit Details Visit Type -OT Initial Evalu ation Discipline -Occupational Therapy Problems Problem Start Date Status Goals Interventions Abnormal Findings Disciplines: Senior Care, Physical Therapy, Occupational Therapy, Speech Therapy, Home Health Aide, Medical Social Work, Spiritual Care, Art Therapy, Massage Therapy, Registered Dietitian, Student - Medical Social Work 06/12/2020 Active 1 goal linked to scheduled/documented intervention 1 goal intervention scheduled/documented in this visit OT10- ADL Disciplines: Occupational Therapy 06/15/2020 Active 1 goal linked to scheduled/documented intervention 2 goal interventions scheduled/documented in this visit Risk of Falls Disciplines: Senior Care, Physical Therapy, Occupational Therapy, Speech Therapy, Home Health Aide, Medical Social Work, Spiritual Care, Art Therapy, Massage Therapy, Registered Dietitian, Student - Medical Social Work 06/12/2020 Active 1 goal linked to scheduled/documented intervention 1 goal intervention scheduled/documented in this visit Goals Goal Associated Problem Outcome Goal Met? Visit Notes Assessment findings goal Abnormal Findings No Self-Care goal OT10- ADL No Balance/Fall risk goal Risk of Falls No Interventions Intervention Associated Problem/Goal Status Variance Visit Notes Report abnormal assessment to physician Problem:Abnormal Findings Goal:Assessment findings goal Scheduled Instruct patient on Home Exercise Program Problem:OT10- ADL Goal:Self-Care goal Completed Pt will start cane exercises, massage from family member, possible heat and cold applications and analgesic rubs to shoulders over weekend. Monitor this progress. Instruct patient/caregiver on homemaking and personal care activities Problem:OT10- ADL Goal:Self-Care goal Scheduled Instruct on fall prevention Problem:Risk of Falls Goal:Balance/Fall risk goal Scheduled Visit Details Visit Type -PT Initial Evalu ation Discipline -Physical Therapy Interventions Intervention Associated Problem/Goal Status Variance Visit Notes Assess/Instruct in home safety/fall prevention strategies Problem:AP07- Decreased Knowledge of Home Safety Goal:Home safety/fall prevention education goal Completed Pt educated on home safety regarding environmental hazards that can create an increased risk for falls including: changing floor surfaces, clutter, animals, and rugs. Pt was agreeable to clear paths for safe ambulation. Assess/Instruct in potential complications (ie: PE, DVT, infection) and appropriate response Problem:AP09- Decreased Knowledge of Potential Complications Goal:Potential complication education goal Completed Pt educated to continually assess for signs of DVT (leg swelling, swollen veins, tender LE, cramping, red/dark skin, warm skin, etc.), signs of infection (fever, swelling, increased redness, etc.), and PE (SOB, chest pain, palpitations, anxiety, etc.) and to call doctor/ED if symptoms arise. Report abnormal assessment to physician Problem:Abnormal Findings Goal:Assessment findings goal Completed Pt BP read 159/104 sitting at rest, pt did not report any symptoms. After functional ambulation BP read 157/114, pt continued to deny symptoms stating that she was just hungry. Reported BP readings to Dr. Gallagher office this date. Assess/Instruct in techniques for postural corretion/positioning Problem:PT13- Abnormal Posture Goal:Posture PT neuro goal Completed Pt required cues during functional mobility to perform upright standing posture. PT muscle re-education Problem:PT14- Decreased Strength Goal:Strength PT Neuro goal Completed Strength was assessed this date through MMT and functional mobility. Plan to impliment therapeutic exercise to address strength deficits throughout skilled PT services. Assess/Instruct in therapeutic techniques to normalize/maximize motor control coordination Problem:PT15- Decreased Motor Control/Coordination Goal:Motor control/coordination goal Completed Assessed motor control and coordination during functional mobility this date. Will impliment skilled therex to address motor control/coordination deficits throughout plan of care. PT establish or upgrade home program Problem:PT16- Decreased knowledge of Home Exercise Program Goal:HEP education goal Completed Pt educated that today was initial PT evaluation and that HEP will be given upon first PT treatment session. PT transfer training Problem:PT19- Decreased Transfer Ability Goal:Improve transfer goal Completed See transfer section for specifics. Assess/Instruct in safe gait techniques in home. Problem:PT20- Decreased Ambulation Ability Goal:Ambulation PT Neuro goal Completed See gait assessment section for specifics. Assess/Instruct in safe home exit/entry and community prepared mobility techniques Problem:PT23- Decreased Home Exit/Entry Ability Goal:Home exit/entry PT Neuro goal Completed See stairs section under mobility tab for specifics. Assess/Instruct in balance and fall prevention techniques Problem:PT24- Decreased Balance/Increased Fall Risk Goal:Balance/Fall risk PT Neuro goal Completed See gait assessment and transfer section for specifics regarding balance and fall prevention techniques. pt declined to perform TUG and 30 STS this date. Assess/Instruct in safe activity progression Problem:PT25- Decreased Activity Tolerance Goal:Activity tolerance PT Neuro goal Completed Pt encouraged to walk at least 3x/day with rollator and family assistance for exercise purposes to prevent adverse effects immobility and deconditioning. Instruct on fall prevention Problem:Risk of Falls Goal:Balance/Fall risk goal Completed See gait assessment and transfer section for specifics regarding balance and fall prevention techniques. Visit Details Visit Type -DEJESUS Routine Vis it Discipline -Occupational Therapy Problems Problem Start Date Status Goals Interventions Abnormal Findings Disciplines: Senior Care, Physical Therapy, Occupational Therapy, Speech Therapy, Home Health Aide, Medical Social Work, Spiritual Care, Art Therapy, Massage Therapy, Registered Dietitian, Student - Medical Social Work 06/12/2020 Active 1 goal linked to scheduled/documented intervention 1 goal intervention scheduled/documented in this visit Code Status Disciplines: Senior Care, Physical Therapy, Occupational Therapy, Speech Therapy, Home Health Aide, Medical Social Work, Spiritual Care, Art Therapy, Massage Therapy, Registered Dietitian, Student - Medical Social Work 06/12/2020 Active 1 goal linked to scheduled/documented intervention 1 goal intervention scheduled/documented in this visit OT10- ADL Disciplines: Occupational Therapy 06/15/2020 Active 1 goal linked to scheduled/documented intervention 2 goal interventions scheduled/documented in this visit Risk of Falls Disciplines: Senior Care, Physical Therapy, Occupational Therapy, Speech Therapy, Home Health Aide, Medical Social Work, Spiritual Care, Art Therapy, Massage Therapy, Registered Dietitian, Student - Medical Social Work 06/12/2020 Active 1 goal linked to scheduled/documented intervention 1 goal intervention scheduled/documented in this visit Goals Goal Associated Problem Outcome Goal Met? Visit Notes Assessment findings goal Abnormal Findings No Code status goal Code Status No Self-Care goal OT10- ADL No Balance/Fall risk goal Risk of Falls No Interventions Intervention Associated Problem/Goal Status Variance Visit Notes Report abnormal assessment to physician Problem:Abnormal Findings Goal:Assessment findings goal Completed No report of worsening symptoms. Full Code Problem:Code Status Goal:Code status goal Completed Instruct patient on Home Exercise Program Problem:OT10- ADL Goal:Self-Care goal Completed with variance Limitations in activity tolerance Provided patient with BUE dowel exercises handout. DEJESUS instructed pt. in BUE dowel exercises while seated to increase ROM, strength and functional reach with BUE to ease performance with functional task performance while decreasing soreness. Using SPC with min verbal/visual for motion, , pt. performed 1 set of 12 reps of shoulder flexion, shoulder press, elbow flexion extension, shoulder adduction and shoulder horizontal movement as tolerated. Patient required 1-2 RB's d/t weakness & fatigue. Patient family not present to demo. massage to shoulders. Patient reports family has been massaging shoulders as tolerated and DEJESUS reviewed technique to decrease risk of injury or soreness. Instruct patient/caregiver on homemaking and personal care activities Problem:OT10- ADL Goal:Self-Care goal Completed with variance Environmental barriers Unable to participate in washing hair at sink side this date d/t clutter and dishes stacked up. DEJESUS s/u and adjusted transfer bench to patient height. Educated and instructed patient in safety training during functional mobility and functional transfers during bathing techniques to facilitate (I) safety awareness and prevent fall risk or need for caregiver assistance. After instructions, pt. judi'sammy sit<-->stand from recliner<-->rollato r then performed functional mobility to bathroom with MN and 1-2 v/c's for positioning. In bathroom, pt. chelita the ability to transfer to/from sit on transfer bench then advance BLE's in/out of bath tub x2 with distant supervision and 1-2 verbal/tactile cue's for safe hand placement on grab bars and positioning. Patient judi'd sit<-->stand from transfer bench in bath tub for simulated post. rodrick. care with unilateral support of grab bar. Instruct on fall prevention Problem:Risk of Falls Goal:Balance/Fall risk goal Completed No report of falls this date. Educated and instructed pt. in fall prevention techniques during self-care activities and homemaking tasks to increase safety awareness, functional task performance and prevent fall risk. Pt. verbally reported understanding of fall prevention techniques. Interventions Intervention Associated Problem/Goal Status Variance Visit Notes Report abnormal assessment to physician Problem:Abnormal Findings Goal:Assessment findings goal Completed Instruct on high risk medications Problem:Home Medication Management Goal:Medication management goal Completed Review and identify unnecessary therapeutic duplication; cardiovascular medication problems related to dizziness; continued hyper/hypotension or low pulse; falls, dizziness, or confusion; and inappropriate use of non-steroidal anti-inflammatory drugs (NSAIDs). Teach medication management Problem:Home Medication Management Goal:Medication management goal Completed Home medication management reviewed with Patient. Patient verbalizes ability to perform safe home medication administration. Instruct on constipation prevention Problem:Learning/Teac jodie Needs- Elimination Goal:Elimination education goal Completed Instruct on the management of diarrhea Problem:Learning/Teac jodie Needs- Elimination Goal:Elimination education goal Completed Instruct breathing techniques Problem:Need to mobilize secretions Goal:Secretions goal Completed Patient instructed in deep-breathing and coughing exercises, pursed-lip and abdominal breathing, and positioning for optimal breathing pattern. Patient verbalizes ability to perform exercises as instructed. Instruct in use of incentive spirometry Problem:Need to mobilize secretions Goal:Secretions goal Completed Instruct on the prevention of nausea/vomiting Problem:Nutritional concerns Goal:Nutrition goal Completed Skilled assessment nutrition Problem:Nutritional concerns Goal:Nutrition goal Completed Instruct on pain management techniques Problem:Physical Discomfort - Pressure Ulcer Goal:Pain management goal Completed Instruct Patient on medications and alternative strategies to relieve pain. Instruct on the signs and symptoms of infection Problem:Post-op care Goal:Post-op care goal Completed Instruct Patient in strategies to prevent infection:frequent/pro per hand-washing techniques, Standard precautions, avoid crowds and persons with known infections, staying current with immunizations, s/s of infection, use of incentive spirometer, use of antibiotics and encourage adequate diet and fluid intake. Wound care Problem:Post-op care Goal:Post-op care goal Completed Instruct on fall prevention Problem:Risk of Falls Goal:Balance/Fall risk goal Completed Obtain pulse oximetry Problem:Skilled Assessment Goal:Rehospitalizatio n goal Completed Skilled observation and assessment general assessment Problem:Skilled Assessment Goal:Rehospitalizatio n goal Completed SN to perform general assessment to include height, weight, vital signs, and temperature; General assessment of systems: pulmonary, cardiovascular, neurologic, gastrointestinal, endocrine, musculoskeletal, renal/urinary, integumentary and psychosocial/psychiatr ic/mental and report any abnormalities or concerns to the physician. Teaching - disease process Problem:Skilled Assessment Goal:Rehospitalizatio n goal Completed Visit Details Visit Type -OT Non-[facility]/Dis cipl Discharge Discipline -Occupational Therapy Problems Problem Start Date Status Goals Interventions Abnormal Findings Disciplines: Senior Care, Physical Therapy, Occupational Therapy, Speech Therapy, Home Health Aide, Medical Social Work, Spiritual Care, Art Therapy, Massage Therapy, Registered Dietitian, Student - Medical Social Work 06/12/2020 Active 1 goal linked to scheduled/documente d intervention 1 goal intervention scheduled/documented in this visit OT10- ADL Disciplines: Occupational Therapy 06/15/2020 Resolved on 06/25/2020 1 goal linked to scheduled/documente d intervention 2 goal interventions scheduled/documented in this visit Risk of Falls Disciplines: Senior Care, Physical Therapy, Occupational Therapy, Speech Therapy, Home Health Aide, Medical Social Work, Spiritual Care, Art Therapy, Massage Therapy, Registered Dietitian, Student - Medical Social Work 06/12/2020 Active 1 goal linked to scheduled/documente d intervention 1 goal intervention scheduled/documented in this visit Goals Goal Associated Problem Outcome Goal Met? Visit Notes Assessment findings goal Abnormal Findings No Self-Care goal OT10- ADL Met No Pt has been reaching for laundry to fold, doing some straightening in kitchen and light organzing tasks in sitting and standing. She can enter tub on bench with a dry-run practice. She has hair care figured out with a basin and a friend to help. Pt can promote her own exercise program onher own with light weights in close ranges when cane exercises become too easy. She needs help with back and lower leg washing and drying. Pt is having family members do massage and other pain relief measures. Pt does not need to do kitchen work, only laundry folding. Pt is using rollator consistently. Goals met. Balance/Fall risk goal Risk of Falls No Interventions Intervention Associated Problem/Goal Status Variance Visit Notes Report abnormal assessment to physician Problem:Abnormal Findings Goal:Assessment findings goal Scheduled Instruct patient on Home Exercise Program Problem:OT10- ADL Goal:Self-Care goal Scheduled Instruct patient/caregiver on homemaking and personal care activities Problem:OT10- ADL Goal:Self-Care goal Scheduled Instruct on fall prevention Problem:Risk of Falls Goal:Balance/Fall risk goal Scheduled Interventions Intervention Associated Problem/Goal Status Variance Visit Notes Report abnormal assessment to physician Problem:Abnormal Findings Goal:Assessment findings goal Completed Instruct on high risk medications Problem:Home Medication Management Goal:Medication management goal Completed Review and identify unnecessary therapeutic duplication; cardiovascular medication problems related to dizziness; continued hyper/hypotension or low pulse; falls, dizziness, or confusion; and inappropriate use of non-steroidal anti-inflammatory drugs (NSAIDs). Teach medication management Problem:Home Medication Management Goal:Medication management goal Completed Home medication management reviewed with Patient. Patient verbalizes ability to perform safe home medication administration. Instruct on constipation prevention Problem:Learning/Teac jodie Needs- Elimination Goal:Elimination education goal Completed Instruct on the management of diarrhea Problem:Learning/Teac jodie Needs- Elimination Goal:Elimination education goal Completed Instruct breathing techniques Problem:Need to mobilize secretions Goal:Secretions goal Completed Patient instructed in deep-breathing and coughing exercises, pursed-lip and abdominal breathing, and positioning for optimal breathing pattern. Patient verbalizes ability to perform exercises as instructed. Instruct in use of incentive spirometry Problem:Need to mobilize secretions Goal:Secretions goal Completed Instruct on the prevention of nausea/vomiting Problem:Nutritional concerns Goal:Nutrition goal Completed Skilled assessment nutrition Problem:Nutritional concerns Goal:Nutrition goal Completed Instruct on pain management techniques Problem:Physical Discomfort - Pressure Ulcer Goal:Pain management goal Completed Instruct Patient on medications and alternative strategies to relieve pain. Instruct on the signs and symptoms of infection Problem:Post-op care Goal:Post-op care goal Completed Instruct Patient in strategies to prevent infection:frequent/pro per hand-washing techniques, Standard precautions, avoid crowds and persons with known infections, staying current with immunizations, s/s of infection, use of incentive spirometer, use of antibiotics and encourage adequate diet and fluid intake. Wound care Problem:Post-op care Goal:Post-op care goal Completed No wound Care needed. Instruct on fall prevention Problem:Risk of Falls Goal:Balance/Fall risk goal Completed Obtain pulse oximetry Problem:Skilled Assessment Goal:Rehospitalizatio n goal Completed Skilled observation and assessment general assessment Problem:Skilled Assessment Goal:Rehospitalizatio n goal Completed SN to perform general assessment to include height, weight, vital signs, and temperature; General assessment of systems: pulmonary, cardiovascular, neurologic, gastrointestinal, endocrine, hematologic, musculoskeletal, renal/urinary, integumentary and psychosocial/psychiatr ic/mental and report any abnormalities or concerns to the physician. Teaching - disease process Problem:Skilled Assessment Goal:Rehospitalizatio n goal Completed Goals Goal Associated Problem Outcome Goal Met? Visit Notes Assessment findings goal Abnormal Findings No Code status goal Code Status No Self-Care goal OT10- ADL Partially Met No Balance/Fall risk goal Risk of Falls Partially Met No Interventions Intervention Associated Problem/Goal Status Variance Visit Notes Report abnormal assessment to physician Problem:Abnormal Findings Goal:Assessment findings goal Completed No report of worsening symptoms. Full Code Problem:Code Status Goal:Code status goal Completed Instruct patient on Home Exercise Program Problem:OT10- ADL Goal:Self-Care goal Completed with variance Limitations in activity tolerance Patient reports good compliance with dowel exercises. DEJESUS instructed pt. in BUE dowel exercises while seated to increase ROM, strength and functional reach with BUE to ease performance with functional task performance while decreasing soreness. Using SPC with 1-2 verbal/visual for motion, , pt. performed 1 set of 15 reps of shoulder flexion, shoulder press, elbow flexion extension, shoulder adduction and shoulder horizontal movement as tolerated. Completed while standing for approx. 8-9 minutes with 1-2 standing RB's d/t weakness & fatigue. Patient reports ex-spouse and daughter have been massaging shoulders as tolerated and DEJESUS reviewed technique to decrease risk of injury or soreness. Instruct patient/caregiver on homemaking and personal care activities Problem:OT10- ADL Goal:Self-Care goal Completed Patient did not have Dr. appointment this date d/t doctor need to rescheduling until next week. New collar not obtained d/t not being able to go to appointment. DEJESUS instructed patient in safety training for washing hair while at sink side or using AE to facilitate (I) safety awareness and maintain sx precautions. After instructions, patient reported she had her friend come over and assist with washing hair while seated and using basin. Patient demo'd the ability to perform simulated hair washing task with min verbal/visual cue's for technique & positioning. Instruct on fall prevention Problem:Risk of Falls Goal:Balance/Fall risk goal Completed No report of falls this date. Educated and instructed pt. in fall prevention techniques during self-care activities and homemaking tasks to increase safety awareness, functional task performance and prevent fall risk. Pt. verbally reported understanding of fall prevention techniques. Interventions Intervention Associated Problem/Goal Status Variance Visit Notes Assess/Instruct in home safety/fall prevention strategies Problem:AP07- Decreased Knowledge of Home Safety Goal:Home safety/fall prevention education goal Completed Educational discussion this date. Assess/Instruct in potential complications (ie: PE, DVT, infection) and appropriate response Problem:AP09- Decreased Knowledge of Potential Complications Goal:Potential complication education goal Completed Report abnormal assessment to physician Problem:Abnormal Findings Goal:Assessment findings goal Completed Assess/Instruct in techniques for postural corretion/positioni ng Problem:PT13- Abnormal Posture Goal:Posture PT neuro goal Scheduled with variance Limitations in activity tolerance PT muscle re-education Problem:PT14- Decreased Strength Goal:Strength PT Neuro goal Completed SALES REPRESENTATIVE [employer] provided skilled instructions on safely completing seated and standing strengthening exercises designed to improve patient's transfer and gait abilities. Pt performed seated marches, LAQ, heel/toe raises, and hip abduction x 10 reps bilaterally. In standing pt performed hip flexion, hip abduction, knee flexion, calf raises, and mini squats x 10 reps bilaterally. Assess/Instruct in therapeutic techniques to normalize/maximize motor control coordination Problem:PT15- Decreased Motor Control/Coordinatio n Goal:Motor control/coordinatio n goal Completed PT establish or upgrade home program Problem:PT16- Decreased knowledge of Home Exercise Program Goal:HEP education goal Completed HEP established with good understanding. PT transfer training Problem:PT19- Decreased Transfer Ability Goal:Improve transfer goal Completed Educational discussion with patient over safety and fall precautions regarding home transfers. Assess/Instruct in safe gait techniques in home. Problem:PT20- Decreased Ambulation Ability Goal:Ambulation PT Neuro goal Completed Therapist facilitated ambulation with 4ww sba to increase safety and provide verbal cues for proper technique and form when manuevering around the home. Assess/Instruct in safe home exit/entry and community prepared mobility techniques Problem:PT23- Decreased Home Exit/Entry Ability Goal:Home exit/entry PT Neuro goal Scheduled with variance Limitations in activity tolerance Assess/Instruct in balance and fall prevention techniques Problem:PT24- Decreased Balance/Increased Fall Risk Goal:Balance/Fall risk PT Neuro goal Completed Educational discussion this date. No standardized testing completed this date due to focus on other goals and tasks. Assess/Instruct in safe activity progression Problem:PT25- Decreased Activity Tolerance Goal:Activity tolerance PT Neuro goal Scheduled with variance Limitations in activity tolerance Instruct on fall prevention Problem:Risk of Falls Goal:Balance/Fall risk goal Completed No report of falls this date. Educated and instructed pt. in fall prevention techniques during self-care activities and homemaking tasks to increase safety awareness, functional task performance and prevent fall risk. Pt. verbally reported understanding of fall prevention techniques. Narratives Home Health Visit - Actions and Narratives (unrecognized section and content) Sitting in chair. assessment done. alert and oriented x3. No SOB noted. Steri strips to Rt side of neck dry and intact. c/o pain in neck rated at an 9/10. Is taking pain medications. Continues to wear neck brace, is using walker and cane. Denies any further c/o or needs at this time. Is waiting for PT to start tomorrow. Actions Homebound Status Reason(s) patient is Homebound: not required Type of home :2-story house, number of outside stairs: 3 plus threshold Type of support and available caregivers: family Narratives Pt is a 55 y.o. female patie nt s/p cervical fusion with hospital stay from 24 to -. [place] collar AAT. Using a rollator. PMH includes: Lumbar fusion in 2018, Fibromyalgia, GERD, HTN Next Physician appointment: 06/[address] Gallagher PLOF: Pt was ambulating short distances with cane due to balance issues pt performed stairs to enter home with cane and family assistance. Current level of function: Pt perform sit to/from stand from toilet and recliner chair with UE support and SBA due to unsteadiness. Pt sleeps in recliner chair. Pt declined to perform shower transfer this date as she states she is sponge bathing due to surgical incision per doctor's orders.Pt ambulated 30 feet x2 to/from bedroom and bathroom with CGA and rollator. Pt declined to perform stairs to enter/exit home due to fatigue after functional ambulation this date. Available assistance: Pt's daughter assists her with bathing and functional mobility. Pt lives with daugther, son, daughter's friend, and two ex-husbands. DME: rollator, [place] collar, shower bench, cane, and reachers. Preferred Appointment Time: Afternoon PT Plan of Care: therapeutic exercise, therapeutic activity, neuromuscular reeducation, gait training, stair training, transfer training, postural reeducation PT Freq/Duration: 1w1, 2w3 Skilled PT services are required to increase LE strength, balance, and endurance for improved transfer/gait, decreased fall risk for safe return to PLOF/highest functional level. Actions CP assess, Pain 05/24. All ot her vitals WNL. Steri strips intact on neck. Patient had PET scan today. Actions CP assess, VS WNL. Pain /10 . Having back pain today as well. Steri Strips intact. Actions Plan for next session: Ines nue to progress towards goals as able. Actions Homebound Status Reason(s) patient is Homebound: pt does not have to be homebound Type of home :2-story house, can live on one level Type of support and available caregivers: family Actions CP assess, VS WNL. NOMNC sig dyana for 07/05/2020 Care Teams (unrecognized sec tion and content) Manager Delivery Relationship Specialty Start Date End Date Marianela Fowler, CORPORATE CONSULTANT [address] [place] [id number] PCP - General Nurse Practitioner 06/03/21 Jose Gallagher MD Neurological Surgery 06/11/20 Manager Delivery Relationship Specialty Start Date End Date Arianna Rosales, LOCOMOTIVE ENGINEER.CORPORATE CONSULTANT [address], [place] [id number] PCP - General Family Practice 11/12/21 Arianna Rosales, LOCOMOTIVE ENGINEER.CORPORATE CONSULTANT [address], [place] [id number] Family Practice 11/12/21 Manager Delivery Relationship Specialty Start Date End Date Arianna Rosales, LOCOMOTIVE ENGINEER.CORPORATE CONSULTANT [address], [place] [id number] PCP - General Family Practice 11/12/21 Arianna Rosales, LOCOMOTIVE ENGINEER.CORPORATE CONSULTANT [address] [facility] [address] Family Practice 11/12/21 Manager Delivery Relationship Specialty Start Date End Date Arianna Rosales, LOCOMOTIVE ENGINEER.CORPORATE CONSULTANT [address] [facility] [address] PCP - General Family Practice 11/12/21 Arianna Rosales, LOCOMOTIVE ENGINEER.CORPORATE CONSULTANT [address] [facility] [address] Family Practice 11/12/21 Manager Delivery Relationship Specialty Start Date End Date Arianna Rosales, LOCOMOTIVE ENGINEER.CORPORATE CONSULTANT [address] [facility] [address] PCP - General Family Practice 11/12/21 Arianna Rosales, LOCOMOTIVE ENGINEER.CORPORATE CONSULTANT [address] [facility] [address] Family Practice 11/12/21 Manager Delivery Relationship Specialty Start Date End Date Arianna Rosales, LOCOMOTIVE ENGINEER.CORPORATE CONSULTANT [address] [facility] [address] PCP - General Family Practice 11/12/21 Arianna Rosales, LOCOMOTIVE ENGINEER.CORPORATE CONSULTANT [address] [facility] [address] Family Practice 11/12/21 Manager Delivery Relationship Specialty Start Date End Date Arianna Rosales, LOCOMOTIVE ENGINEER.CORPORATE CONSULTANT [address] [facility] [address] PCP - General Family Practice 11/12/21 Arianna Rosales, LOCOMOTIVE ENGINEER.CORPORATE CONSULTANT [address] [facility] [address] Family Practice 11/12/21 Manager Delivery Relationship Specialty Start Date End Date Arianna Rosales, LOCOMOTIVE ENGINEER.CORPORATE CONSULTANT [address] [facility] [place] [address] PCP - General Family Practice 11/12/21 Arianna Rosales, LOCOMOTIVE ENGINEER.CORPORATE CONSULTANT [address] [facility] [address] Family Practice 11/12/21 Manager Delivery Relationship Specialty Start Date End Date Arianna Rosales, LOCOMOTIVE ENGINEER.CORPORATE CONSULTANT [address] [facility] [address] PCP - General Family Practice 11/12/21 Arianna Rosales, LOCOMOTIVE ENGINEER.CORPORATE CONSULTANT [address] [facility] [address] Family Practice 11/12/21 Manager Delivery Relationship Specialty Start Date End Date Arianna Rosales, LOCOMOTIVE ENGINEER.CORPORATE CONSULTANT [address] [facility] [address] PCP - General Family Practice 11/12/21 Arianna Rosales, LOCOMOTIVE ENGINEER.CORPORATE CONSULTANT [address] [facility] [address] Family Practice 11/12/21 Manager Delivery Relationship Specialty Start Date End Date Arianna Rosales, LOCOMOTIVE ENGINEER.CORPORATE CONSULTANT [address] [facility] [address] PCP - General Family Practice 11/12/21 Arianna Rosales, LOCOMOTIVE ENGINEER.CORPORATE CONSULTANT [address] [facility] [address] Family Practice 11/12/21 Manager Delivery Relationship Specialty Start Date End Date Arianna Rosales, LOCOMOTIVE ENGINEER.CORPORATE CONSULTANT [address] [facility] [address] PCP - General Family Practice 11/12/21 Arianna Rosales, LOCOMOTIVE ENGINEER.CORPORATE CONSULTANT [address] [facility] [address] Family Practice 11/12/21 Manager Delivery Relationship Specialty Start Date End Date Arianna Rosales, LOCOMOTIVE ENGINEER.CORPORATE CONSULTANT [address] [facility] [address] PCP - General Family Practice 11/12/21 Arianna Rosales, LOCOMOTIVE ENGINEER.CORPORATE CONSULTANT [address] [facility] [place] [address] Family Practice 11/12/21 Manager Delivery Relationship Specialty Start Date End Date Arianna Rosales, LOCOMOTIVE ENGINEER.CORPORATE CONSULTANT [address] [facility] [address] PCP - General Family Practice 11/12/21 Arianna Rosales, LOCOMOTIVE ENGINEER.CORPORATE CONSULTANT [address] [facility] [address] Family Practice 11/12/21 Manager Delivery Relationship Specialty Start Date End Date Arianna Rosales, LOCOMOTIVE ENGINEER.CORPORATE CONSULTANT [address] [facility] [address] PCP - General Family Practice 11/12/21 Arianna Rosales, LOCOMOTIVE ENGINEER.CORPORATE CONSULTANT [address] [facility] [address] Family Practice 11/12/21 Manager Delivery Relationship Specialty Start Date End Date Arianna Rosales, LOCOMOTIVE ENGINEER.CORPORATE CONSULTANT [address] [facility] [address] PCP - General Family Practice 11/12/21 Arianna Rosales, LOCOMOTIVE ENGINEER.CORPORATE CONSULTANT [address] [facility] [address] Family Practice 11/12/21 Manager Delivery Relationship Specialty Start Date End Date Arianna Rosales, LOCOMOTIVE ENGINEER.CORPORATE CONSULTANT [address] [place] [address] PCP - General Family Practice 11/12/21 Arianna Rosales, LOCOMOTIVE ENGINEER.CORPORATE CONSULTANT [address] [facility] [address] Family Practice 11/12/21 Manager Delivery Relationship Specialty Start Date End Date Arianna Rosales, LOCOMOTIVE ENGINEER.CORPORATE CONSULTANT [address] [facility] [address] PCP - General Family Practice 11/12/21 Arianna Rosales, LOCOMOTIVE ENGINEER.CORPORATE CONSULTANT [address] [facility] [address] Family Practice 11/12/21 Manager Delivery Relationship Specialty Start Date End Date Arianna Rosales, LOCOMOTIVE ENGINEER.CORPORATE CONSULTANT [address] [facility] [address] PCP - General Family Practice 11/12/21 Arianna Rosales, LOCOMOTIVE ENGINEER.CORPORATE CONSULTANT [address] [facility] [address] Family Practice 11/12/21 Manager Delivery Relationship Specialty Start Date End Date Arianna Rosales, LOCOMOTIVE ENGINEER.CORPORATE CONSULTANT [address] [facility] [address] PCP - General Family Medicine 11/12/21 Arianna Rosales, LOCOMOTIVE ENGINEER.CORPORATE CONSULTANT [address] [facility] [address] Family Medicine 11/12/21 Manager Delivery Relationship Specialty Start Date End Date Arianna Rosales, LOCOMOTIVE ENGINEER.CORPORATE CONSULTANT [address] [facility] [place] [address] PCP - General Family Medicine 11/12/21 Arianna Rosales, LOCOMOTIVE ENGINEER.CORPORATE CONSULTANT [address] [place] [address] Family Medicine 11/12/21 Manager Delivery Relationship Specialty Start Date End Date Arianna Rosales, LOCOMOTIVE ENGINEER.CORPORATE CONSULTANT [address] [facility] [place] [address] PCP - General Family Medicine 11/12/21 Arianna Rosales, LOCOMOTIVE ENGINEER.CORPORATE CONSULTANT [address] [facility] [place] [address] Family Medicine 11/12/21 Manager Delivery Relationship Specialty Start Date End Date Arianna Rosales, LOCOMOTIVE ENGINEER.CORPORATE CONSULTANT [address] [facility] [place] [address] PCP - General Family Medicine 11/12/21 Arianna Rosales, LOCOMOTIVE ENGINEER.CORPORATE CONSULTANT [address] [facility] [address] Family Medicine 11/12/21 Manager Delivery Relationship Specialty Start Date End Date Arianna Rosales, LOCOMOTIVE ENGINEER.CORPORATE CONSULTANT [address] [facility] [address] PCP - General Family Medicine 11/12/21 Arianna Rosales, LOCOMOTIVE ENGINEER.CORPORATE CONSULTANT [address] [facility] [address] Family Medicine 11/12/21 Manager Delivery Relationship Specialty Start Date End Date Arianna Rosales, LOCOMOTIVE ENGINEER.CORPORATE CONSULTANT [address] [place] [address] PCP - General Family Medicine 11/12/21 Arianna Rosales LOCOMOTIVE ENGINEER.CORPORATE CONSULTANT [address] [facility] [address] Family Medicine 11/12/21 Manager Delivery Relationship Specialty Start Date End Date Arianna Rosales, LOCOMOTIVE ENGINEER.CORPORATE CONSULTANT [address] [facility] [address] PCP - General Family Medicine 11/12/21 Arianna Rosales, LOCOMOTIVE ENGINEER.CORPORATE CONSULTANT [address] [facility] [address] Family Medicine 11/12/21 Manager Delivery Relationship Specialty Start Date End Date Arianna Rosales, LOCOMOTIVE ENGINEER.CORPORATE CONSULTANT [address] [facility] [address] PCP - General Family Medicine 11/12/21 Arianna Rosales, LOCOMOTIVE ENGINEER.CORPORATE CONSULTANT [address] [facility] [address] Family Medicine 11/12/21 Manager Delivery Relationship Specialty Start Date End Date Arianna Rosales, LOCOMOTIVE ENGINEER.CORPORATE CONSULTANT [address] [facility] [address] PCP - General Family Medicine 11/12/21 Arianna Rosales, LOCOMOTIVE ENGINEER.CORPORATE CONSULTANT [address] [facility] [address] Family Medicine 11/12/21 Manager Delivery Relationship Specialty Start Date End Date Scott Espinosa, CORPORATE CONSULTANT PCP - General Nurse Practitioner 02/27/17 04/20/18 Meka Price, PCP - General Family Medicine 04/21/18 06/28/18 Marianela Fowler, CORPORATE CONSULTANT PCP - General Nurse Practitioner 06/29/18 04/07/21 Marianela Fowler, CORPORATE CONSULTANT [address] [facility] [address] [place] [address] PCP - General Nurse Practitioner 06/03/21 Scott Espinosa, JOVANA Referring Physician Nurse Practitioner 02/27/17 Kristie Vera, editorial writer Family Medicine 07/22/18 09/05/20 Kristie Vera, seasonal greenery bundler Medicine 06/25/18 08/07/19 GuerreroSvetlana jenkins [facility] Ict Programmer 07/18/19 09/27/[address] [employer] Stripping Shovel Oiler Dietitian/Evaluation Manager 07/18/19 08/04/[address] Dietitian Dietitian/Evaluation Manager 08/03/19 10/05/19 Jose Gallagher MD Neurological Surgery 06/11/20 Manager Delivery Relationship Specialty Start Date End Date Arianna Rosales, LOCOMOTIVE ENGINEER.CORPORATE CONSULTANT [address] [place] [address] PCP - General Family Medicine 11/12/21 Arianna Rosales, LOCOMOTIVE ENGINEER.CORPORATE CONSULTANT [address] [place] [address] Family Medicine 11/12/21 Manager Delivery Relationship Specialty Start Date End Date Arianna Rosales, LOCOMOTIVE ENGINEER.CORPORATE CONSULTANT [address] [place] [address] PCP - General Family Medicine 11/12/21 Arianna Rosales, LOCOMOTIVE ENGINEER.CORPORATE CONSULTANT [address] [place] [address] Family Medicine 11/12/21 Manager Delivery Relationship Specialty Start Date End Date Arianna Rosales, LOCOMOTIVE ENGINEER.CORPORATE CONSULTANT [address] [place] [address] PCP - General Family Medicine 11/12/21 Arianna Rosales, LOCOMOTIVE ENGINEER.CORPORATE CONSULTANT [address] [facility] [place] [address] Family Medicine 11/12/21 Manager Delivery Relationship Specialty Start Date End Date Arianna Rosales, LOCOMOTIVE ENGINEER.CORPORATE CONSULTANT [address] [facility] [address] PCP - General Family Medicine 11/12/21 Arianna Rosales, LOCOMOTIVE ENGINEER.CORPORATE CONSULTANT [address] [facility] [address] Family Medicine 11/12/21 Manager Delivery Relationship Specialty Start Date End Date Arianna Rosales, LOCOMOTIVE ENGINEER.CORPORATE CONSULTANT [address] [facility] [place] [address] PCP - General Family Medicine 11/12/21 Arianna Rosales, LOCOMOTIVE ENGINEER.CORPORATE CONSULTANT [address] [facility] [place] [address] Family Medicine 11/12/21 Manager Delivery Relationship Specialty Start Date End Date Arianna Rosales, LOCOMOTIVE ENGINEER.CORPORATE CONSULTANT [address] [facility] [address] PCP - General Family Medicine 11/12/21 Arianna Rosales, LOCOMOTIVE ENGINEER.CORPORATE CONSULTANT [address] [facility] [address] Family Medicine 11/12/21 Manager Delivery Relationship Specialty Start Date End Date Arianna Rosales, LOCOMOTIVE ENGINEER.CORPORATE CONSULTANT [address] [facility] [place] [address] PCP - General Family Medicine 11/12/21 Arianna Rosales, LOCOMOTIVE ENGINEER.CORPORATE CONSULTANT [address] [facility] [address] Family Medicine 11/12/21 Manager Delivery Relationship Specialty Start Date End Date Marianela Fowler, JOVANA [address] [place] [phone] PCP - General Nurse Practitioner 06/03/21 Jose Gallagher MD Neurological Surgery 06/11/20 Manager Delivery Relationship Specialty Start Date End Date Arianna Rosales, LOCOMOTIVE ENGINEER.CORPORATE CONSULTANT [address] [facility] [address] PCP - General Family Medicine 11/12/21 Arianna Rosales, LOCOMOTIVE ENGINEER.CORPORATE CONSULTANT [address] [facility] [address] Family Medicine 11/12/21 Manager Delivery Relationship Specialty Start Date End Date Arianna Rosales, LOCOMOTIVE ENGINEER.CORPORATE CONSULTANT [address] [facility] [address] PCP - General Family Medicine 11/12/21 Arianna Rosales, LOCOMOTIVE ENGINEER.CORPORATE CONSULTANT [address] [facility] [address] Family Medicine 11/12/21 Manager Delivery Relationship Specialty Start Date End Date Arianna Rosales, LOCOMOTIVE ENGINEER.CORPORATE CONSULTANT [address] [facility] [address] PCP - General Family Medicine 11/12/21 Arianna Rosales, LOCOMOTIVE ENGINEER.CORPORATE CONSULTANT [address] [place] [address] Family Medicine 11/12/21 Manager Delivery Relationship Specialty Start Date End Date Arianna Rosales, LOCOMOTIVE ENGINEER.CORPORATE CONSULTANT [address] [place] [address] PCP - General Family Medicine 11/12/21 Arianna Rosales, LOCOMOTIVE ENGINEER.CORPORATE CONSULTANT [address] [place] [address] Family Medicine 11/12/21 Manager Delivery Relationship Specialty Start Date End Date Arianna Rosales, LOCOMOTIVE ENGINEER.CORPORATE CONSULTANT [address] [place] [address] PCP - General Family Medicine 11/12/21 Arianna Rosales, LOCOMOTIVE ENGINEER.CORPORATE CONSULTANT [address] [place] [address] Family Medicine 11/12/21 Manager Delivery Relationship Specialty Start Date End Date Arianna Rosales, LOCOMOTIVE ENGINEER.CORPORATE CONSULTANT [address] [place] [address] PCP - General Family Medicine 11/12/21 Arianna Rosales, LOCOMOTIVE ENGINEER.CORPORATE CONSULTANT [address] [place] [address] Family Medicine 11/12/21 Manager Delivery Relationship Specialty Start Date End Date Arianna Rosales, LOCOMOTIVE ENGINEER.CORPORATE CONSULTANT [address] [place] [address] PCP - General Family Medicine 11/12/21 Arianna Rosales, LOCOMOTIVE ENGINEER.CORPORATE CONSULTANT [address] [place] [address] Family Medicine 11/12/21 Manager Delivery Relationship Specialty Start Date End Date Arianna Rosales, LOCOMOTIVE ENGINEER.CORPORATE CONSULTANT [address] [place] [address] PCP - General Family Medicine 11/12/21 Arianna Rosales, LOCOMOTIVE ENGINEER.CORPORATE CONSULTANT [address] [place] [address] Family Medicine 11/12/21 Manager Delivery Relationship Specialty Start Date End Date Arianna Rosales, LOCOMOTIVE ENGINEER.CORPORATE CONSULTANT [address] [place] [address] PCP - General Family Medicine 11/12/21 Arianna Rosales, LOCOMOTIVE ENGINEER.CORPORATE CONSULTANT [address] [place] [address] Family Medicine 11/12/21 Manager Delivery Relationship Specialty Start Date End Date Arianna Rosales, LOCOMOTIVE ENGINEER.CORPORATE CONSULTANT [address] [place] [address] PCP - General Family Medicine 11/12/21 Arianna Rosales, LOCOMOTIVE ENGINEER.CORPORATE CONSULTANT [address] [place] [address] Family Medicine 11/12/21 Manager Delivery Relationship Specialty Start Date End Date Arianna Rosales, LOCOMOTIVE ENGINEER.CORPORATE CONSULTANT [address] [place] [address] PCP - General Family Medicine 11/12/21 Arianna oRsales, LOCOMOTIVE ENGINEER.CORPORATE CONSULTANT [address] [place], [place] [id number] Family Medicine 11/12/21 Manager Delivery Relationship Specialty Start Date End Date Arianna Rosales, LOCOMOTIVE ENGINEER.CORPORATE CONSULTANT [address] [place] [address] PCP - General Family Medicine 11/12/21 Arianna Rosales, LOCOMOTIVE ENGINEER.CORPORATE CONSULTANT [address] [place], [place] [id number] Family Medicine 11/12/21 Manager Delivery Relationship Specialty Start Date End Date Arianna Rosales, LOCOMOTIVE ENGINEER.CORPORATE CONSULTANT [address] [place] [address] PCP - General Family Medicine 11/12/21 Arianna Rosales, LOCOMOTIVE ENGINEER.CORPORATE CONSULTANT [address] [place], [place] [id number] Family Medicine 11/12/21 Manager Delivery Relationship Specialty Start Date End Date Arianna Rosales, LOCOMOTIVE ENGINEER.CORPORATE CONSULTANT [address] [place] [address] PCP - General Family Medicine 11/12/21 Arianna Rosales, LOCOMOTIVE ENGINEER.CORPORATE CONSULTANT [address] [place], [place] [id number] Family Medicine 11/12/21 Manager Delivery Relationship Specialty Start Date End Date Arianna Rosales, LOCOMOTIVE ENGINEER.CORPORATE CONSULTANT [address] [place] [address] PCP - General Family Medicine 11/12/21 Arianna Rosales, LOCOMOTIVE ENGINEER.CORPORATE CONSULTANT [address] [place], [place] [id number] Family Medicine 11/12/21 Manager Delivery Relationship Specialty Start Date End Date Arianna Rosales, LOCOMOTIVE ENGINEER.CORPORATE CONSULTANT [address] [place], [place] [id number] PCP - General Family Medicine 11/12/21 Arianna Rosales, LOCOMOTIVE ENGINEER.CORPORATE CONSULTANT [address] [place], [place] [id number] Family Medicine 11/12/21 Manager Delivery Relationship Specialty Start Date End Date Arianna Rosales, LOCOMOTIVE ENGINEER.CORPORATE CONSULTANT [address] [place], [place] [id number] PCP - General Family Medicine 11/12/21 Arianna Rosales, LOCOMOTIVE ENGINEER.CORPORATE CONSULTANT [address] [place], [place] [id number] Family Medicine 11/12/21 Manager Delivery Relationship Specialty Start Date End Date Arianna Rosales, LOCOMOTIVE ENGINEER.CORPORATE CONSULTANT [address] [place], [place] [id number] PCP - General Family Medicine 11/12/21 Arianna Rosales, LOCOMOTIVE ENGINEER.CORPORATE CONSULTANT [address] [place], [place] [id number] Family Medicine 11/12/21 Manager Delivery Relationship Specialty Start Date End Date Arianna Rosales, LOCOMOTIVE ENGINEER.CORPORATE CONSULTANT [address] [place], [place] [id number] PCP - General Family Medicine 11/12/21 Arianna Rosales, LOCOMOTIVE ENGINEER.CORPORATE CONSULTANT [address] [place] [place], [place] [id number] Family Medicine 11/12/21 Manager Delivery Relationship Specialty Start Date End Date Arianna Rosales, LOCOMOTIVE ENGINEER.CORPORATE CONSULTANT [address] [place] [address] PCP - General Family Medicine 11/12/21 Arianna Rosales, LOCOMOTIVE ENGINEER.CORPORATE CONSULTANT [address] [place], [place] [id number] Family Medicine 11/12/21 Manager Delivery Relationship Specialty Start Date End Date Arianna Rosales, LOCOMOTIVE ENGINEER.CORPORATE CONSULTANT [address] [place], [place] [id number] PCP - General Family Medicine 11/12/21 Arianna Rosales, LOCOMOTIVE ENGINEER.CORPORATE CONSULTANT [address] [place], [place] [id number] Family Medicine 11/12/21 Tracey Blakely RN Primary Care Strategic Communications Manager 01/26/24 Manager Delivery Relationship Specialty Start Date End Date Arianna Rosales, LOCOMOTIVE ENGINEER.CORPORATE CONSULTANT [address] [place] [address] PCP - General Family Medicine 11/12/21 Arianna Rosales, LOCOMOTIVE ENGINEER.CORPORATE CONSULTANT [address] [place] [address] Family Medicine 11/12/21 Tracey Blakely RN Primary Care Strategic Communications Manager 01/26/24 Manager Delivery Relationship Specialty Start Date End Date Arianna Rosales, LOCOMOTIVE ENGINEER.CORPORATE CONSULTANT [address] [place], [place] [id number] PCP - General Family Medicine 11/12/21 Arianna Rosales, LOCOMOTIVE ENGINEER.CORPORATE CONSULTANT [address] [place], [place] [phone] Family Medicine 11/12/21 Tracey Blakely, carrot harvester Strategic Communications Manager 01/26/24 Manager Delivery Relationship Specialty Start Date End Date Arianna Rosales, LOCOMOTIVE ENGINEER.CORPORATE CONSULTANT [address] [place], [place] [phone] PCP - General Family Medicine 11/12/21 Arianna Rosales, LOCOMOTIVE ENGINEER.CORPORATE CONSULTANT [address] [facility] [place] [address] Family Medicine 11/12/21 Tracey Blakely, carrot harvester Strategic Communications Manager 01/26/24 Manager Delivery Relationship Specialty Start Date End Date Arianna Rosales, LOCOMOTIVE ENGINEER.CORPORATE CONSULTANT [address] [place] [address] PCP - General Family Medicine 11/12/21 Arianna Rosales, LOCOMOTIVE ENGINEER.CORPORATE CONSULTANT [address] [facility] [place] [address] Family Medicine 11/12/21 Tracey Blakely, carrot harvester Strategic Communications Manager 01/26/24 Manager Delivery Relationship Specialty Start Date End Date Marianela Fowler, JOVANA [address] [place] [address] PCP - General Nurse Practitioner 06/03/21 Jose Gallagher MD Neurological Surgery 06/11/20 Manager Delivery Relationship Specialty Start Date End Date Arianna Rosales APRN.CORPORATE CONSULTANT [address] [place] [address] PCP - General Family Medicine 11/12/21 Arianna Rosales, LOCOMOTIVE ENGINEER.CORPORATE CONSULTANT [address] [place] [address] Family Medicine 11/12/21 Manager Delivery Relationship Specialty Start Date End Date Arianna Rosales, LOCOMOTIVE ENGINEER.CORPORATE CONSULTANT [address] [place] [address] PCP - General Family Medicine 11/12/21 Arianna Rosales, LOCOMOTIVE ENGINEER.CORPORATE CONSULTANT [address] [place] [address] Family Medicine 11/12/21 Manager Delivery Relationship Specialty Start Date End Date Arianna Rosales, LOCOMOTIVE ENGINEER.CORPORATE CONSULTANT [address] [place] [address] PCP - General Family Medicine 11/12/21 Arianna Rosales, LOCOMOTIVE ENGINEER.CORPORATE CONSULTANT [address] [place] [address] Family Medicine 11/12/21 Manager Delivery Relationship Specialty Start Date End Date Arianna Rosales, LOCOMOTIVE ENGINEER.CORPORATE CONSULTANT [address] [place] [address] PCP - General Family Medicine 11/12/21 Arianna Rosales, LOCOMOTIVE ENGINEER.CORPORATE CONSULTANT [address] [place] [address] Family Medicine 11/12/21 Manager Delivery Relationship Specialty Start Date End Date Arianna Rosales, LOCOMOTIVE ENGINEER.CORPORATE CONSULTANT [address] [place] [address] PCP - General Family Medicine 11/12/21 Arianna Rosales, LOCOMOTIVE ENGINEER.CORPORATE CONSULTANT [address] [place] [address] Family Medicine 11/12/21 Manager Delivery Relationship Specialty Start Date End Date Arianna Rosales, LOCOMOTIVE ENGINEER.CORPORATE CONSULTANT [address] [place] [address] PCP - General Family Medicine 11/12/21 Arianna Rosales, LOCOMOTIVE ENGINEER.CORPORATE CONSULTANT [address] [place] [address] Family Medicine 11/12/21 Manager Delivery Relationship Specialty Start Date End Date Arianna Rosales, LOCOMOTIVE ENGINEER.CORPORATE CONSULTANT [address] [place] [address] PCP - General Family Medicine 11/12/21 Arianna Rosales, LOCOMOTIVE ENGINEER.CORPORATE CONSULTANT [address] [place] [address] Family Medicine 11/12/21 Manager Delivery Relationship Specialty Start Date End Date Arianna Rosales, LOCOMOTIVE ENGINEER.CORPORATE CONSULTANT [address] [place] [address] PCP - General Family Medicine 11/12/21 Arianna Rosales, LOCOMOTIVE ENGINEER.CORPORATE CONSULTANT [address] [place] [address] Family Medicine 11/12/21 Manager Delivery Relationship Specialty Start Date End Date Arianna Rosales APRN.CORPORATE CONSULTANT [address] [place] [address] PCP - General Family Medicine 11/12/21 Arianna Rosales APRN.CORPORATE CONSULTANT [address] [place] [address] Family Medicine 11/12/21 Source Comments (unrecognize d section and content) In the event this informatio n is protected by the Federal Confidentiality of Alcohol and Drug Abuse Patient Records regulations: The Federal rules restrict any use of the information to criminally investigate or prosecute any alcohol or drug abuse patient.[facility] the event this information is protected by the Federal Confidentiality of Alcohol and Drug Abuse Patient Records regulations: The Federal rules restrict any use of the information to criminally investigate or prosecute any alcohol or drug abuse patient.[facility] HospitalIn the event this information is protected by the Federal Confidentiality of Alcohol and Drug Abuse Patient Records regulations: The Federal rules restrict any use of the information to criminally investigate or prosecute any alcohol or drug abuse patient.[facility] HospitalIn the event this information is protected by the Federal Confidentiality of Alcohol and Drug Abuse Patient Records regulations: The Federal rules restrict any use of the information to criminally investigate or prosecute any alcohol or drug abuse patient.[facility] HospitalIn the event this information is protected by the Federal Confidentiality of Alcohol and Drug Abuse Patient Records regulations: The Federal rules restrict any use of the information to criminally investigate or prosecute any alcohol or drug abuse patient.[facility] HospitalIn the event this information is protected by the Federal Confidentiality of Alcohol and Drug Abuse Patient Records regulations: The Federal rules restrict any use of the information to criminally investigate or prosecute any alcohol or drug abuse patient.[facility] HospitalIn the event this information is protected by the Federal Confidentiality of Alcohol and Drug Abuse Patient Records regulations: The Federal rules restrict any use of the information to criminally investigate or prosecute any alcohol or drug abuse patient.[facility] HospitalIn the event this information is protected by the Federal Confidentiality of Alcohol and Drug Abuse Patient Records regulations: The Federal rules restrict any use of the information to criminally investigate or prosecute any alcohol or drug abuse patient.[facility] HospitalIn the event this information is protected by the Federal Confidentiality of Alcohol and Drug Abuse Patient Records regulations: The Federal rules restrict any use of the information to criminally investigate or prosecute any alcohol or drug abuse patient.[facility] HospitalIn the event this information is protected by the Federal Confidentiality of Alcohol and Drug Abuse Patient Records regulations: The Federal rules restrict any use of the information to criminally investigate or prosecute any alcohol or drug abuse patient.[facility] HospitalIn the event this information is protected by the Federal Confidentiality of Alcohol and Drug Abuse Patient Records regulations: The Federal rules restrict any use of the information to criminally investigate or prosecute any alcohol or drug abuse patient.[facility] HospitalIn the event this information is protected by the Federal Confidentiality of Alcohol and Drug Abuse Patient Records regulations: The Federal rules restrict any use of the information to criminally investigate or prosecute any alcohol or drug abuse patient.[facility] HospitalIn the event this information is protected by the Federal Confidentiality of Alcohol and Drug Abuse Patient Records regulations: The Federal rules restrict any use of the information to criminally investigate or prosecute any alcohol or drug abuse patient.[facility] HospitalIn the event this information is protected by the Federal Confidentiality of Alcohol and Drug Abuse Patient Records regulations: The Federal rules restrict any use of the information to criminally investigate or prosecute any alcohol or drug abuse patient.[facility] HospitalIn the event this information is protected by the Federal Confidentiality of Alcohol and Drug Abuse Patient Records regulations: The Federal rules restrict any use of the information to criminally investigate or prosecute any alcohol or drug abuse patient.[facility] HospitalIn the event this information is protected by the Federal Confidentiality of Alcohol and Drug Abuse Patient Records regulations: The Federal rules restrict any use of the information to criminally investigate or prosecute any alcohol or drug abuse patient.[facility] HospitalIn the event this information is protected by the Federal Confidentiality of Alcohol and Drug Abuse Patient Records regulations: The Federal rules restrict any use of the information to criminally investigate or prosecute any alcohol or drug abuse patient.[facility] HospitalIn the event this information is protected by the Federal Confidentiality of Alcohol and Drug Abuse Patient Records regulations: The Federal rules restrict any use of the information to criminally investigate or prosecute any alcohol or drug abuse patient.[facility] HospitalIn the event this information is protected by the Federal Confidentiality of Alcohol and Drug Abuse Patient Records regulations: The Federal rules restrict any use of the information to criminally investigate or prosecute any alcohol or drug abuse patient.[facility] HospitalIn the event this information is protected by the Federal Confidentiality of Alcohol and Drug Abuse Patient Records regulations: The Federal rules restrict any use of the information to criminally investigate or prosecute any alcohol or drug abuse patient.[facility] HospitalIn the event this information is protected by the Federal Confidentiality of Alcohol and Drug Abuse Patient Records regulations: The Federal rules restrict any use of the information to criminally investigate or prosecute any alcohol or drug abuse patient.[facility] HospitalIn the event this information is protected by the Federal Confidentiality of Alcohol and Drug Abuse Patient Records regulations: The Federal rules restrict any use of the information to criminally investigate or prosecute any alcohol or drug abuse patient.[facility] HospitalIn the event this information is protected by the Federal Confidentiality of Alcohol and Drug Abuse Patient Records regulations: The Federal rules restrict any use of the information to criminally investigate or prosecute any alcohol or drug abuse patient.[facility] HospitalIn the event this information is protected by the Federal Confidentiality of Alcohol and Drug Abuse Patient Records regulations: The Federal rules restrict any use of the information to criminally investigate or prosecute any alcohol or drug abuse patient.[facility] HospitalIn the event this information is protected by the Federal Confidentiality of Alcohol and Drug Abuse Patient Records regulations: The Federal rules restrict any use of the information to criminally investigate or prosecute any alcohol or drug abuse patient.[facility] HospitalIn the event this information is protected by the Federal Confidentiality of Alcohol and Drug Abuse Patient Records regulations: The Federal rules restrict any use of the information to criminally investigate or prosecute any alcohol or drug abuse patient.[facility] HospitalIn the event this information is protected by the Federal Confidentiality of Alcohol and Drug Abuse Patient Records regulations: The Federal rules restrict any use of the information to criminally investigate or prosecute any alcohol or drug abuse patient.[facility] HospitalIn the event this information is protected by the Federal Confidentiality of Alcohol and Drug Abuse Patient Records regulations: The Federal rules restrict any use of the information to criminally investigate or prosecute any alcohol or drug abuse patient.[facility] HospitalIn the event this information is protected by the Federal Confidentiality of Alcohol and Drug Abuse Patient Records regulations: The Federal rules restrict any use of the information to criminally investigate or prosecute any alcohol or drug abuse patient.[facility] HospitalIn the event this information is protected by the Federal Confidentiality of Alcohol and Drug Abuse Patient Records regulations: The Federal rules restrict any use of the information to criminally investigate or prosecute any alcohol or drug abuse patient.[facility] HospitalIn the event this information is protected by the Federal Confidentiality of Alcohol and Drug Abuse Patient Records regulations: The Federal rules restrict any use of the information to criminally investigate or prosecute any alcohol or drug abuse patient.[facility] HospitalIn the event this information is protected by the Federal Confidentiality of Alcohol and Drug Abuse Patient Records regulations: The Federal rules restrict any use of the information to criminally investigate or prosecute any alcohol or drug abuse patient.[facility] HospitalIn the event this information is protected by the Federal Confidentiality of Alcohol and Drug Abuse Patient Records regulations: The Federal rules restrict any use of the information to criminally investigate or prosecute any alcohol or drug abuse patient.[facility] HospitalIn the event this information is protected by the Federal Confidentiality of Alcohol and Drug Abuse Patient Records regulations: The Federal rules restrict any use of the information to criminally investigate or prosecute any alcohol or drug abuse patient.[facility] HospitalIn the event this information is protected by the Federal Confidentiality of Alcohol and Drug Abuse Patient Records regulations: The Federal rules restrict any use of the information to criminally investigate or prosecute any alcohol or drug abuse patient.[facility] HospitalIn the event this information is protected by the Federal Confidentiality of Alcohol and Drug Abuse Patient Records regulations: The Federal rules restrict any use of the information to criminally investigate or prosecute any alcohol or drug abuse patient.[facility] HospitalIn the event this information is protected by the Federal Confidentiality of Alcohol and Drug Abuse Patient Records regulations: The Federal rules restrict any use of the information to criminally investigate or prosecute any alcohol or drug abuse patient.[facility] HospitalIn the event this information is protected by the Federal Confidentiality of Alcohol and Drug Abuse Patient Records regulations: The Federal rules restrict any use of the information to criminally investigate or prosecute any alcohol or drug abuse patient.[facility] HospitalIn the event this information is protected by the Federal Confidentiality of Alcohol and Drug Abuse Patient Records regulations: The Federal rules restrict any use of the information to criminally investigate or prosecute any alcohol or drug abuse patient.[facility] HospitalIn the event this information is protected by the Federal Confidentiality of Alcohol and Drug Abuse Patient Records regulations: The Federal rules restrict any use of the information to criminally investigate or prosecute any alcohol or drug abuse patient.[facility] HospitalIn the event this information is protected by the Federal Confidentiality of Alcohol and Drug Abuse Patient Records regulations: The Federal rules restrict any use of the information to criminally investigate or prosecute any alcohol or drug abuse patient.[facility] HospitalIn the event this information is protected by the Federal Confidentiality of Alcohol and Drug Abuse Patient Records regulations: The Federal rules restrict any use of the information to criminally investigate or prosecute any alcohol or drug abuse patient.[facility]In the event this information is protected by the Federal Confidentiality of Alcohol and Drug Abuse Patient Records regulations: The Federal rules restrict any use of the information to criminally investigate or prosecute any alcohol or drug abuse patient.[facility] HospitalIn the event this information is protected by the Federal Confidentiality of Alcohol and Drug Abuse Patient Records regulations: The Federal rules restrict any use of the information to criminally investigate or prosecute any alcohol or drug abuse patient.[facility]In the event this information is protected by the Federal Confidentiality of Alcohol and Drug Abuse Patient Records regulations: The Federal rules restrict any use of the information to criminally investigate or prosecute any alcohol or drug abuse patient.[facility] HospitalIn the event this information is protected by the Federal Confidentiality of Alcohol and Drug Abuse Patient Records regulations: The Federal rules restrict any use of the information to criminally investigate or prosecute any alcohol or drug abuse patient.[facility] HospitalIn the event this information is protected by the Federal Confidentiality of Alcohol and Drug Abuse Patient Records regulations: The Federal rules restrict any use of the information to criminally investigate or prosecute any alcohol or drug abuse patient.[facility] HospitalIn the event this information is protected by the Federal Confidentiality of Alcohol and Drug Abuse Patient Records regulations: The Federal rules restrict any use of the information to criminally investigate or prosecute any alcohol or drug abuse patient.[facility] HospitalIn the event this information is protected by the Federal Confidentiality of Alcohol and Drug Abuse Patient Records regulations: The Federal rules restrict any use of the information to criminally investigate or prosecute any alcohol or drug abuse patient.[facility] HospitalIn the event this information is protected by the Federal Confidentiality of Alcohol and Drug Abuse Patient Records regulations: The Federal rules restrict any use of the information to criminally investigate or prosecute any alcohol or drug abuse patient.[facility] HospitalIn the event this information is protected by the Federal Confidentiality of Alcohol and Drug Abuse Patient Records regulations: The Federal rules restrict any use of the information to criminally investigate or prosecute any alcohol or drug abuse patient.[facility] HospitalIn the event this information is protected by the Federal Confidentiality of Alcohol and Drug Abuse Patient Records regulations: The Federal rules restrict any use of the information to criminally investigate or prosecute any alcohol or drug abuse patient.[facility] HospitalIn the event this information is protected by the Federal Confidentiality of Alcohol and Drug Abuse Patient Records regulations: The Federal rules restrict any use of the information to criminally investigate or prosecute any alcohol or drug abuse patient.[facility] HospitalIn the event this information is protected by the Federal Confidentiality of Alcohol and Drug Abuse Patient Records regulations: The Federal rules restrict any use of the information to criminally investigate or prosecute any alcohol or drug abuse patient.[facility] HospitalIn the event this information is protected by the Federal Confidentiality of Alcohol and Drug Abuse Patient Records regulations: The Federal rules restrict any use of the information to criminally investigate or prosecute any alcohol or drug abuse patient.[facility] HospitalIn the event this information is protected by the Federal Confidentiality of Alcohol and Drug Abuse Patient Records regulations: The Federal rules restrict any use of the information to criminally investigate or prosecute any alcohol or drug abuse patient.[facility] HospitalIn the event this information is protected by the Federal Confidentiality of Alcohol and Drug Abuse Patient Records regulations: The Federal rules restrict any use of the information to criminally investigate or prosecute any alcohol or drug abuse patient.[facility] HospitalIn the event this information is protected by the Federal Confidentiality of Alcohol and Drug Abuse Patient Records regulations: The Federal rules restrict any use of the information to criminally investigate or prosecute any alcohol or drug abuse patient.[facility] HospitalIn the event this information is protected by the Federal Confidentiality of Alcohol and Drug Abuse Patient Records regulations: The Federal rules restrict any use of the information to criminally investigate or prosecute any alcohol or drug abuse patient.[facility] HospitalIn the event this information is protected by the Federal Confidentiality of Alcohol and Drug Abuse Patient Records regulations: The Federal rules restrict any use of the information to criminally investigate or prosecute any alcohol or drug abuse patient.[facility] HospitalIn the event this information is protected by the Federal Confidentiality of Alcohol and Drug Abuse Patient Records regulations: The Federal rules restrict any use of the information to criminally investigate or prosecute any alcohol or drug abuse patient.[facility] HospitalIn the event this information is protected by the Federal Confidentiality of Alcohol and Drug Abuse Patient Records regulations: The Federal rules restrict any use of the information to criminally investigate or prosecute any alcohol or drug abuse patient.[facility] HospitalIn the event this information is protected by the Federal Confidentiality of Alcohol and Drug Abuse Patient Records regulations: The Federal rules restrict any use of the information to criminally investigate or prosecute any alcohol or drug abuse patient.[facility] HospitalIn the event this information is protected by the Federal Confidentiality of Alcohol and Drug Abuse Patient Records regulations: The Federal rules restrict any use of the information to criminally investigate or prosecute any alcohol or drug abuse patient.[facility] HospitalIn the event this information is protected by the Federal Confidentiality of Alcohol and Drug Abuse Patient Records regulations: The Federal rules restrict any use of the information to criminally investigate or prosecute any alcohol or drug abuse patient.[facility] HospitalIn the event this information is protected by the Federal Confidentiality of Alcohol and Drug Abuse Patient Records regulations: The Federal rules restrict any use of the information to criminally investigate or prosecute any alcohol or drug abuse patient.[facility] HospitalIn the event this information is protected by the Federal Confidentiality of Alcohol and Drug Abuse Patient Records regulations: The Federal rules restrict any use of the information to criminally investigate or prosecute any alcohol or drug abuse patient.[facility] HospitalIn the event this information is protected by the Federal Confidentiality of Alcohol and Drug Abuse Patient Records regulations: The Federal rules restrict any use of the information to criminally investigate or prosecute any alcohol or drug abuse patient.[facility] HospitalIn the event this information is protected by the Federal Confidentiality of Alcohol and Drug Abuse Patient Records regulations: The Federal rules restrict any use of the information to criminally investigate or prosecute any alcohol or drug abuse patient.[facility] HospitalIn the event this information is protected by the Federal Confidentiality of Alcohol and Drug Abuse Patient Records regulations: The Federal rules restrict any use of the information to criminally investigate or prosecute any alcohol or drug abuse patient.[facility] HospitalIn the event this information is protected by the Federal Confidentiality of Alcohol and Drug Abuse Patient Records regulations: The Federal rules restrict any use of the information to criminally investigate or prosecute any alcohol or drug abuse patient.[facility] HospitalIn the event this information is protected by the Federal Confidentiality of Alcohol and Drug Abuse Patient Records regulations: The Federal rules restrict any use of the information to criminally investigate or prosecute any alcohol or drug abuse patient.[facility] HospitalIn the event this information is protected by the Federal Confidentiality of Alcohol and Drug Abuse Patient Records regulations: The Federal rules restrict any use of the information to criminally investigate or prosecute any alcohol or drug abuse patient.[facility] HospitalIn the event this information is protected by the Federal Confidentiality of Alcohol and Drug Abuse Patient Records regulations: The Federal rules restrict any use of the information to criminally investigate or prosecute any alcohol or drug abuse patient.[facility] HospitalIn the event this information is protected by the Federal Confidentiality of Alcohol and Drug Abuse Patient Records regulations: The Federal rules restrict any use of the information to criminally investigate or prosecute any alcohol or drug abuse patient.[facility] HospitalIn the event this information is protected by the Federal Confidentiality of Alcohol and Drug Abuse Patient Records regulations: The Federal rules restrict any use of the information to criminally investigate or prosecute any alcohol or drug abuse patient.[facility] HospitalIn the event this information is protected by the Federal Confidentiality of Alcohol and Drug Abuse Patient Records regulations: The Federal rules restrict any use of the information to criminally investigate or prosecute any alcohol or drug abuse patient.[facility] HospitalIn the event this information is protected by the Federal Confidentiality of Alcohol and Drug Abuse Patient Records regulations: The Federal rules restrict any use of the information to criminally investigate or prosecute any alcohol or drug abuse patient.[facility] HospitalIn the event this information is protected by the Federal Confidentiality of Alcohol and Drug Abuse Patient Records regulations: The Federal rules restrict any use of the information to criminally investigate or prosecute any alcohol or drug abuse patient.[facility] HospitalIn the event this information is protected by the Federal Confidentiality of Alcohol and Drug Abuse Patient Records regulations: The Federal rules restrict any use of the information to criminally investigate or prosecute any alcohol or drug abuse patient.[facility] HospitalIn the event this information is protected by the Federal Confidentiality of Alcohol and Drug Abuse Patient Records regulations: The Federal rules restrict any use of the information to criminally investigate or prosecute any alcohol or drug abuse patient.[facility] HospitalIn the event this information is protected by the Federal Confidentiality of Alcohol and Drug Abuse Patient Records regulations: The Federal rules restrict any use of the information to criminally investigate or prosecute any alcohol or drug abuse patient.[facility] HospitalIn the event this information is protected by the Federal Confidentiality of Alcohol and Drug Abuse Patient Records regulations: The Federal rules restrict any use of the information to criminally investigate or prosecute any alcohol or drug abuse patient.[facility] HospitalIn the event this information is protected by the Federal Confidentiality of Alcohol and Drug Abuse Patient Records regulations: The Federal rules restrict any use of the information to criminally investigate or prosecute any alcohol or drug abuse patient.[facility] HospitalIn the event this information is protected by the Federal Confidentiality of Alcohol and Drug Abuse Patient Records regulations: The Federal rules restrict any use of the information to criminally investigate or prosecute any alcohol or drug abuse patient.[facility] HospitalIn the event this information is protected by the Federal Confidentiality of Alcohol and Drug Abuse Patient Records regulations: The Federal rules restrict any use of the information to criminally investigate or prosecute any alcohol or drug abuse patient.[facility] HospitalIn the event this information is protected by the Federal Confidentiality of Alcohol and Drug Abuse Patient Records regulations: The Federal rules restrict any use of the information to criminally investigate or prosecute any alcohol or drug abuse patient.[facility] HospitalIn the event this information is protected by the Federal Confidentiality of Alcohol and Drug Abuse Patient Records regulations: The Federal rules restrict any use of the information to criminally investigate or prosecute any alcohol or drug abuse patient.[facility] HospitalIn the event this information is protected by the Federal Confidentiality of Alcohol and Drug Abuse Patient Records regulations: The Federal rules restrict any use of the information to criminally investigate or prosecute any alcohol or drug abuse patient.[facility] HospitalIn the event this information is protected by the Federal Confidentiality of Alcohol and Drug Abuse Patient Records regulations: The Federal rules restrict any use of the information to criminally investigate or prosecute any alcohol or drug abuse patient.[facility] HospitalIn the event this information is protected by the Federal Confidentiality of Alcohol and Drug Abuse Patient Records regulations: The Federal rules restrict any use of the information to criminally investigate or prosecute any alcohol or drug abuse patient.[facility] HospitalIn the event this information is protected by the Federal Confidentiality of Alcohol and Drug Abuse Patient Records regulations: The Federal rules restrict any use of the information to criminally investigate or prosecute any alcohol or drug abuse patient.[facility] HospitalIn the event this information is protected by the Federal Confidentiality of Alcohol and Drug Abuse Patient Records regulations: The Federal rules restrict any use of the information to criminally investigate or prosecute any alcohol or drug abuse patient.[facility] HospitalIn the event this information is protected by the Federal Confidentiality of Alcohol and Drug Abuse Patient Records regulations: The Federal rules restrict any use of the information to criminally investigate or prosecute any alcohol or drug abuse patient.[facility] HospitalIn the event this information is protected by the Federal Confidentiality of Alcohol and Drug Abuse Patient Records regulations: The Federal rules restrict any use of the information to criminally investigate or prosecute any alcohol or drug abuse patient.[facility] HospitalIn the event this information is protected by the Federal Confidentiality of Alcohol and Drug Abuse Patient Records regulations: The Federal rules restrict any use of the information to criminally investigate or prosecute any alcohol or drug abuse patient.[facility] HospitalIn the event this information is protected by the Federal Confidentiality of Alcohol and Drug Abuse Patient Records regulations: The Federal rules restrict any use of the information to criminally investigate or prosecute any alcohol or drug abuse patient.[facility] HospitalIn the event this information is protected by the Federal Confidentiality of Alcohol and Drug Abuse Patient Records regulations: The Federal rules restrict any use of the information to criminally investigate or prosecute any alcohol or drug abuse patient.[facility] HospitalIn the event this information is protected by the Federal Confidentiality of Alcohol and Drug Abuse Patient Records regulations: The Federal rules restrict any use of the information to criminally investigate or prosecute any alcohol or drug abuse patient.[facility] HospitalIn the event this information is protected by the Federal Confidentiality of Alcohol and Drug Abuse Patient Records regulations: The Federal rules restrict any use of the information to criminally investigate or prosecute any alcohol or drug abuse patient.[facility] HospitalIn the event this information is protected by the Federal Confidentiality of Alcohol and Drug Abuse Patient Records regulations: The Federal rules restrict any use of the information to criminally investigate or prosecute any alcohol or drug abuse patient.[facility] HospitalIn the event this information is protected by the Federal Confidentiality of Alcohol and Drug Abuse Patient Records regulations: The Federal rules restrict any use of the information to criminally investigate or prosecute any alcohol or drug abuse patient.[facility] HospitalIn the event this information is protected by the Federal Confidentiality of Alcohol and Drug Abuse Patient Records regulations: The Federal rules restrict any use of the information to criminally investigate or prosecute any alcohol or drug abuse patient.[facility] HospitalIn the event this information is protected by the Federal Confidentiality of Alcohol and Drug Abuse Patient Records regulations: The Federal rules restrict any use of the information to criminally investigate or prosecute any alcohol or drug abuse patient.[facility] FOR RECORDS PERTAINING TO PATIENTS WHO ARE OR HAVE BEEN ENROLLED IN A CHEMICAL DEPENDENCY/SUBSTANCEABUSE PROGRAM, SOME INFORMATION MAY BE OMITTED. This clinical summary was aggregated from multiple sources. Caution should be exercised in using it in the provision of clinical care. This summary normalizes information from multiple sources, and as a consequence, information in this document may materially change the coding, format and clinical context of patient data. In addition, data may be omitted in some cases. CLINICAL DECISIONS SHOULD BE BASED ON THE PRIMARY CLINICAL RECORDS. [facility]. provides no warranty or guarantee of the accuracy or completeness of information in this document.
[2025-04-07 03:58] LABS: Mucous, Urine 0 SEEN /hpf (<or=2+)
[2025-04-07 03:59] LABS: AST(SGOT) 16 U/L (<=31); Alanine Aminotransfer ALT/SGPT 9 U/L (<=34); Albumin, Serum 4.1 g/dL (3.5-5.0); Alkaline Phosphatase 105 U/L (35-104); Anion Gap 13 (5-15); BUN 12 mg/dL (4-19); BUN/Creat Ratio 13.9 RATIO (10-20); Calcium,Total 9.7 mg/dL (7.6-11.0); Carbon Dioxide 25.2 mmol/L (21.0-32.0); Chloride 97 mmol/L (98-108); Estimated Creatinine Clearance 82.31 ml/min (50-250); Globulin 4.4 g/dL (2.2-4.2); Glucose 293 mg/dL (70-99); Lipase 50 U/L (13-75); Potassium 4.0 mmol/L (3.3-5.1)
[2025-04-07 04:00] LABS: Color, Urine Yellow (Yellow); Glucose, Dipstick 1000 mg/dl (Normal); Ketone-Dipstick Negative (Negative); Leukocyte Esterase-Dipstick 100 /ul (Negative); Nitrite-Dipstick Negative (Negative); Occult Blood-Urine 50 /ul (Negative); Protein-Dipstick 30 mg/dl (Negative); Specific Gravity, Urine 1.010 (1.002-1.030); Urine Bilirubin Dipstick Negative (Negative)
--- NOTE | 2025-04-07 04:13 | CT_ITS ---
PROCEDURE: ABDOMEN/PELVIS W IV CONT ONLY 04/07/2025 REASON FOR EXAM: ABD PAIN TECHNIQUE: ABDOMEN/PELVIS W IV CONT ONLY Coronal and Sagittal reconstruction series were provided. CONTRAST: Isovue 370 VOLUME: 96 mL One or more dose reduction techniques were used (e.g., Automated exposure control, adjustment of the mA and/or kV according to patient size, use of iterative reconstruction technique. RADIATION DOSE SUMMARY: CTDlvol: 31 mGy DLP: 1137 mGycm COMPARISON: No FINDINGS: Under aerated lung bases. Normal heart size. Unremarkable liver, gallbladder, pancreas, scratch stat adrenal glands, and kidneys. Slightly enlarged spleen, 14 cm length. There is mild enhancement of the urothelial lining bilaterally. No hydronephrosis or ureteral stone. There is mild bladder wall thickening and adjacent fat stranding. Normal uterus and ovaries. No retroperitoneal adenopathy. There is bilateral, alpk-etbeogv-daop-right inguinal adenopathy, possibly an acutely inflamed left inguinal lymph node, series 2, image 132. No free air. Small hiatal hernia. Nondistended bowel. Normal appendix. Diverticulosis. No acute large bowel findings. Lumbar spine degeneration, prior surgery. CT/Abdomen/Pelvis W IV Cont ONLY IMPRESSION: Cystitis and bilateral urinary tract infection. No evidence of kidney infectio n. Reading Location: [place] [id number]
[2025-04-07 04:20] LABS: Red Blood Cells-Urine 0-5 SEEN /hpf (0-5); Squamous Epithelial Cells - UA 0-5 SEEN /hpf (5-10)
[2025-04-07 04:25] VITALS: BP 172/58; PULSE 69; RESP 18; TEMP 37.1; O2SAT 98
--- NOTE | 2025-04-07 04:28 | EDS_ITS ---
HPI History of Present Illness Chief Complaint: Nausea/Vomiting Informant: patient Narrative Narrative: Reports sudden onset bilateral abdominal pain on the sides nausea vomit x 2 no hematemesis. Normal bowel movement earlier today. Has daily bowel movements. No history of kidney stones. States diabetes history was not feeling well for last couple days. No cough. States she feels like onset of urinary symptoms. States urine odor. She is only abdominal surgery she had hemorrhaging after a vaginal delivery. She did not have a hysterectomy however. This was years ago. [facility] Medical History Degenerative disk disease Fibromyalgia Arthritis Sleep apnea Hypercholesteremia Diabetes Home Medications Medication Instructions Recorded Last Taken Type albuterol sulfate 90 mcg/actuation 2 inh inhalation Q4 H 03/20/23 Unknown History aerosol inhaler aspirin 81 mg tablet,delayed 81 mg PO DAILY 03/20/23 U nknown History release (Adult Low Dose Aspirin) atorvastatin 40 mg tablet 40 mg PO DAILY 03/20/23 Unkn own History gabapentin 600 mg tablet 600 mg PO QHS 03/20/23 Unkno wn History lisinopril 20 mg tablet 20 mg PO DAILY 03/20/23 Unkn own History
--- NOTE | 2025-04-07 04:28 | EX.ED.DYSGE1 ---
HPI History of Present Illness Chief Complaint: Nausea/Vomiting Informant: patient Narrative Narrative: Reports sudden onset bilateral abdominal pain on the sides nausea vomit x 2 no hematemesis. Normal bowel movement earlier today. Has daily bowel movements. No history of kidney stones. States diabetes history was not feeling well for last couple days. No cough. States she feels like onset of urinary symptoms. States urine odor. She is only abdominal surgery she had hemorrhaging after a vaginal delivery. She did not have a hysterectomy however. This was years ago. [facility] Medical History Degenerative disk disease Fibromyalgia Arthritis Sleep apnea Hypercholesteremia Diabetes Home Medications Medication Instructions Recorded Last Taken Type albuterol sulfate 90 mcg/actuation 2 inh inhalation Q4H 03/20/23 Unknown History aerosol inhaler aspirin 81 mg tablet,delayed 81 mg PO DAILY 03/20/23 Unknown History release (Adult Low Dose Aspirin) atorvastatin 40 mg tablet 40 mg PO DAILY 03/20/23 Unknown History gabapentin 600 mg tablet 600 mg PO QHS 03/20/23 Unknown History lisinopril 20 mg tablet 20 mg PO DAILY 03/20/23 Unknown History metoprolol tartrate 25 mg tablet 25 mg PO Q12H 03/20/23 Unknown History multivitamin (Daily Multi-Vitamin 1 tab PO DAILY 03/20/23 Unknown History tablet) pantoprazole 40 mg tablet,delayed 40 mg PO Q12H 03/20/23 Unknown History release blood sugar diagnostic (Accu-Chek #100 ea 12/30/23 Unknown Rx Guide test strips) insulin lispro 100 unit/mL 50 unit (0.5 mL) subcut TID #15 mL 12/30/23 Unknown Rx subcutaneous pen Dexcom G7 Sensor (blood-glucose #3 ea 01/22/24 Unknown Rx sensor) blood-glucose,railroad dispatcher,cont #1 ea 01/22/24 Unknown Rx (Dexcom G7 Field Underwriter) semaglutide 0.25 mg or 0.5 mg (2 0.5 mg (0.736 mL) subcut QWEEK #3 02/15/24 Unknown Rx mg/3 mL) subcutaneous pen injector mL (Ozempic) Lantus Solostar U-100 Insulin 100 50 unit (0.5 mL) subcut QHS #15 mL 02/16/24 Unknown Rx unit/mL (3 mL) subcutaneous pen (insulin glargine) dapagliflozin propanediol 10 mg 10 mg PO DAILY #30 tabs 02/16/24 Unknown Rx tablet (Farxiga) amoxicillin 500 mg capsule 500 mg PO TID 04/07/25 Unknown History cefdinir 300 mg capsule 300 mg PO Q12H #14 caps 04/07/25 Unknown Rx ondansetron 4 mg disintegrating 4 mg PO Q8H PRN PRN Nausea #10 tabs 04/07/25 Unknown Rx tablet Allergy/AdvReac Type Severity Reaction Status Date / Time Latex, Natural Rubber Allergy Intermediate Rash Verified 04/07/25 03:20 lavender (Lavandula Allergy Mild Hives Verified 04/07/25 03:20 angustifolia) metformin Allergy Mild rash Verified 04/07/25 03:20 Surgical History History of fusion of cervical spine History of lumbar fusion History of back surgery Social History Smoking Status: Never smoker alcohol intake: never substance use type: does not use ROS ROS ED Constitutional Constitutional ED: Denies chills, fever(s) or sweats ENT ENT ED: Denies sore throat Cardiovascular Cardiovascular: Denies chest pain, leg edema, palpitations or racing heartbeat Respiratory/Chest Respiratory/Chest: Denies cough, dyspnea or dyspnea on exertion Gastrointestinal Gastrointestinal: Reports abdominal pain, nausea and vomiting; Denies diarrhea Genitourinary Genitourinary ED: Reports other Details: Urine odor ; Denies dysuria, hematuria or urinary frequency Musculoskeletal Musculoskeletal: Denies back pain, extremity pain or neck pain Integumentary Denies rash or wounds Neurologic Neurologic: Denies headache(s), paresthesias or weakness EXAM Physical Exam Const Vital Signs: 04/07/25 03:22 04/07/25 03:25 04/07/25 04:25 Temperature 98.7 F 98.7 F 98.7 F Temperature Source Oral Oral Oral Pulse Rate 85 84 69 Respiratory Rate 18 18 18 Blood Pressure 207/94 H 202/79 H 172/58 H Blood Pressure Mean 131 120 96 Pulse Ox 96 100 98 Oxygen Delivery Method Room Air Room Air Room Air 04/07/25 05:00 04/07/25 06:00 04/07/25 06:12 Temperature 98.7 F 98.5 F 98.5 F Temperature Source Oral Oral Pulse Rate 71 77 75 Respiratory Rate 18 18 18 Blood Pressure 192/81 H 158/52 H 156/58 H Blood Pressure Mean 118 87 90 Pulse Ox 98 99 98 Oxygen Delivery Method Room Air Room Air Positive well nourished and well developed General Appearance ED: well developed and NAD HEENT HEENT Narrative: Mild dry mucosal membranes normocephalic and atraumatic Eyes General Eye ED: Yes normal appearance of both eyes Neck full ROM Chest Wall Chest: Negative for tenderness Resp normal respiratory effort and normal air movement Effort and Inspection: symmetric chest movement; Negative for respiratory distress Cardio regular rate, regular rhythm and no murmurs Peripheral Pulses: pulses 2+ throughout GI normal to inspection, nondistended, normoactive bowel sounds GI Narrative: Negative Solorio's or McBurney's tenderness. No guarding or rebound. Palpation: Negative for guarding or rebound tenderness present Extremity normal to inspection General Extremety ED: Negative for edema or tenderness General Extremity: Negative for edema Neuro oriented x3 and no sensory deficits noted Sensorium / Orientation: awake and alert Skin no rashes or lesions noted and no wounds MDM MDM MDM Narrative Medical decision making narrative: Interventions / MDM: Differential diagnosis: Complicated UTI, abdominal pain, nausea and vomiting, history of diabetes Diagnosis considered but do not suspect: DKA however workup negative. Kidney stone however CT negative. Electrolyte abnormalities however labs normal. My EKG interpretation: N/A Imaging independently reviewed and interpreted by myself: CT abdomen pelvis IV contrast: Cystitis with stranding of ureters no kidney involvement. No kidney stones. Also read by radiology. External documents reviewed: N/A Test considered but not ordered:N/A ED course: Mild dry mucosal membranes abdominal pain prior to vomiting. Sudden onset. Abdominal labs ordered fluids given Zofran morphine. CT abdomen pelvis IV contrast. UA ordered. Patient workup noting cystitis with stranding around the ureters urine did have signs of infection white count 13.3 creatinine 0.84. Glucose 293 normal gap negative beta hydroxybutyrate. I did add Toradol redosed Zofran. Reevaluation symptoms more controlled blood pressure improved with treatment of symptoms. Patient was given IV Rocephin after urine culture sent. She declines any prescription pain medicine she states she has ibuprofen at home. I will send to her pharmacy antibiotics along with antiemetics. Outpatient follow-up. All questions were answered. Re-evaluation: stable Disposition discussed with patient/family/significant other: Patient Case discussed with consulting clinician: N/A This note was generated with [employer] dictation software. It may contain incorrect words, spelling, and punctuation that were not noted in checking the note before signing. Lab Data Attestation: I reviewed the patient's lab results. Labs: Laboratory Results - last 24 hr 04/07/25 04/07/25 03:27 03:45 WBC 13.3 H RBC 4.56 Hgb 13.0 Hct 39.1 MCV 85.7 MCH 28.5 MCHC 33.2 RDW Std Deviation 39.8 RDW Coeff of [place]atum 12.8 Plt Count 310 MPV 10.1 Immature Gran % (Auto) 0.400 Neut % (Auto) 77.2 H Lymph % (Auto) 14.0 L [place] % (Auto) 7.3 Eos % (Auto) 0.7 Baso % (Auto) 0.4 Absolute Neuts (auto) 10.3 H Absolute Lymphs (auto) 1.87 Nucleated RBC % 0 Sodium 134 Potassium 4.0 Chloride 97 L Carbon Dioxide 25.2 Anion Gap 13 BUN 12 Creatinine 0.84 Estim Creat Clear Calc 82.31 Est GFR (MDRD) Non-Af 81 BUN/Creatinine Ratio 13.9 Glucose 293 H Calcium 9.7 Total Bilirubin 0.76 AST 16 ALT 9 Alkaline Phosphatase 105 H Total Protein 8.5 H Albumin 4.1 Globulin 4.4 H Albumin/Globulin Ratio 0.9 Lipase 50 b-Hydroxybutyric mmol/L 0.2 Urine Color Yellow Urine Clarity Sl. Cloudy Urine pH 7.0 Ur Specific [place] 1.010 Urine Protein 30 H Urine Glucose (UA) 1000 H Urine Ketones Negative Urine Occult Blood 50 H Urine Nitrite Negative Urine Bilirubin Negative Urine Urobilinogen Normal Ur Leukocyte Esterase 100 H Urine RBC 0-5 SEEN Urine WBC 10-25 SEEN Ur Squamous Epith Cells 0-5 SEEN Urine Bacteria RARE Urine Mucus 0 SEEN Radiography Diagnostic Testing: Clinical Impression(s) from Imaging Studies Abdomen/Pelvis CT 04/07/25 04:13 IMPRESSION: Cystitis and bilateral urinary tract infection. No evidence of kidney infection. Reading Location: [place] [address] Discharge Plan Triage Chief Complaint: Nausea/Vomiting ED Provider: Rory Garza Dx/Rx/DC Orders Clinical Impression: Complicated urinary tract infection, Diabetes, Nausea & vomiting Instructions: Urinary Tract Infections in Women, ED Vomiting (Adult) Prescriptions: New ondansetron 4 mg tablet,disintegrating 4 mg PO Q8H PRN PRN (Reason: Nausea) Qty: 10 0RF cefdinir 300 mg capsule 300 mg PO Q12H Qty: 14 0RF No Action metoprolol tartrate 25 mg tablet 25 mg PO Q12H pantoprazole 40 mg tablet,delayed release (DR/EC) 40 mg PO Q12H gabapentin 600 mg tablet 600 mg PO QHS lisinopril 20 mg tablet 20 mg PO DAILY Patient Comments: TAKE 1 TABLET BY MOUTH ONCE DAILY atorvastatin 40 mg tablet 40 mg PO DAILY Patient Comments: TAKE 1 TABLET BY MOUTH ONCE DAILY albuterol sulfate 90 mcg/actuation HFA aerosol inhaler 2 inh inhalation Q4H Patient Comments: INHALE 2 PUFFS BY MOUTH EVERY 4 HOURS NEEDED FOR WHEEZING AND FOR SHORTNESS OF BREATH multivitamin [Daily Multi-Vitamin] Tablet 1 tab PO DAILY aspirin [Adult Low Dose Aspirin] 81 mg tablet,delayed release (DR/EC) 81 mg PO DAILY insulin lispro 100 unit/mL insulin pen 50 unit subcut TID Qty: 15 5RF (DME) Accu-Chek Guide test strips Strip See Rx Instructions .Route Qty: 100 5RF Rx Instructions: TID amoxicillin 500 mg capsule 500 mg PO TID (DME) Dexcom G7 Sensor Device See Rx Instructions .Route Qty: 3 6RF Rx Instructions: As directed (DME) Dexcom G7 Field Underwriter Misc See Rx Instructions .Route Qty: 1 0RF Rx Instructions: As directed Ozempic 0.25 mg or 0.5 mg (2 mg/3 mL) pen injector 0.5 mg subcut QWEEK Qty: 3 5RF Farxiga 10 mg tablet 10 mg PO DAILY Qty: 30 3RF insulin glargine [Lantus Solostar U-100 Insulin] 100 unit/mL (3 mL) insulin pen 50 unit subcut QHS Qty: 15 3RF Primary Care Provider: Arianna Alonzo NP Referrals: Arianna Alonzo FELLER OPERATOR, FELLER OPERATOR-C [Primary Care Provider] - 1 Week Activity Restrictions/Additional Instructions: Lab work negative for any DKA concerns. Urine with infection. Normal kidney function. CT scan no kidney stones inflammation around your ureter status post IV Rocephin. Taking finish antibiotic prescribed. Continue oral fluids for hydration. Zofran as needed. Continue Motrin up to 600 mg every 6 hours as needed. Follow-up with your doctor. Print Language: Croatian Disposition Disposition: Home, Self Care Discharge Date/Time: 04/07/25 06:14
[2025-04-07 04:55] LABS: BETA-HYDROXYBUTYRATE 0.2 mmol/L (0.0-0.3)
[2025-04-07 05:00] VITALS: BP 192/81; PULSE 71; RESP 18; TEMP 37.1; O2SAT 98
--- NOTE | 2025-04-07 05:22 | ED.RN ---
This RN went into the patient's room to medicate her. Dr. Garza passed this RN in the hallway and Dr. Garza informed this RN that he unhooked the patient to allow the patient to go to the bathroom. This RN entered the room and continued to assist the patient to the bathroom. The patient proceeded to pee on her way to the bathroom, trailing urine from room 8 to the back hallway bathroom. The patient pulled the cord in the bathroom, the patient raised her voice stating "well I had an accident because you did not give me my call light so now I need new pants and I should have given me a call light so I could call for help." This RN apologized to the patient for the lack of the call light. The patient had recently come back from CT scan and was not given the call light after the CT scan. This RN was sure to give the patient her call light after being assisted back into the bed.
[2025-04-07 06:00] VITALS: BP 158/52; PULSE 77; RESP 18; TEMP 36.9; O2SAT 99
[2025-04-07 06:12] VITALS: BP 156/58; PULSE 75; RESP 18; TEMP 36.9; O2SAT 98
== END 2025-04-07 06:14 | disposition home or self-care (01) ==
PROVIDERS: Emergency Provider Emergency Medicine; PCP Nurse Practitioner Family; Visit Provider Emergency Medicine
DX: N30.90 Cystitis, unspecified without hematuria (principal); E11.9 Type 2 diabetes mellitus without complications; R11.2 Nausea with vomiting, unspecified; E78.00 Pure hypercholesterolemia, unspecified
CPT/HCPCS: 74177; 80053; 81001; 82010; 83690; 85025; 87077; 87086; 87088; 87186; 96361; 96365; 96375; 96376; 99284; Q9967; A4216; J2405